=== PATIENT | female | born 1950 | race Caucasian/White ===

== ENCOUNTER 2018-12-03 19:15 | Inpatient (IN) ==
[2018-12-03] MEDS ORDERED: SODIUM CHLORIDE 0.9% 1000ML 1,000 ML IV ONE (19:25)
[2018-12-03] MEDS ORDERED: ONDANSETRON INJ 2 MG/ML 2 ML VIAL IV STA (19:25)
[2018-12-03 20:01] LABS: Hematocrit (blood only) 37.5 % (37-47); Hemoglobin 12.2 g/dL (12.0-16.0); Mean Corpuscular Hemoglobin 24.2 pg (25-34); Mean Corpuscular Hgb Conc 32.5 g/dL (32-36); Mean Corpuscular Volume 74.3 fL (80-100); Mean Platelet Volume 10.6 fL (7.4-10.4); Platelet Count 349 K/uL (130-400); RDW Coefficient of Variation 17.6 % (11.5-14.5); RDW Standard Deviation 47.9 fL (36.4-46.3); Red Blood Count 5.05 M/uL (4.2-5.4)
[2018-12-03 20:11] LABS: BUN Creatinine Ratio 25.1 (10-20); Calcium 8.6 mg/dl (8.5-10.1); Est GFR (African American) 49.2; Est GFR (Non-African American) 42.4; Potassium 4.4 mmol/L (3.5-5.1)
[2018-12-03 20:13] LABS: Albumin Globulin Ratio 0.7 (0.9-2); Bilirubin,Total 0.5 mg/dl (0.2-1); Globulin 4.5 gm/dl (2.5-4.0); Total Protein 7.5 gm/dl (6.4-8.2)
[2018-12-03 20:26] LABS: Basophils # (auto) 0.02 K/uL (0-0.2); Basophils % (auto) 0.1 %; Immature Granulocytes # (auto) 0.13 K/uL (0.00-0.02); Immature Granulocytes % (auto) 0.5 %; Lymphocytes # (auto) 0.61 K/uL (1.2-3.4); Lymphocytes % (auto) 2.4 %; Monocytes # (auto) 1.78 K/uL (0.11-0.59); Neutrophils # (auto) 22.96 K/uL (1.4-6.5)
[2018-12-03] MEDS ORDERED: IOVERSOL 100ml IV PRN (21:03)
[2018-12-03] MEDS ORDERED: PIPERACILL/TAZOBAC CONSULT ACTIVE PRN (21:13)
[2018-12-03] MEDS ORDERED: PIPERACILLIN/TAZOBACTAM 4.5 GM/120 ML BAG IV ONE (21:13)
--- NOTE | 2018-12-03 21:34 | CT Scan Report ---
CT abd pelvis IV con only CLINICAL HISTORY: 68 years-old Female presenting with lower abdominal pain, left-sided pain. TECHNIQUE: Multidetector CT of the abdomen and pelvis was performed after the administration of intra venous contrast. IV contrast: 80 mL of Optiray 320. One or more dose lowering techniques were used co nsistent with the principles of ALARA (as low as reasonably achievable), including automatic exposure control, mA or kV adjustment to individual patient size, and/or use of iterative reconstruction. COMPARISON: 10/08/2013 CT DOSE (mGy.cm): The estimated cumulative dose is 420.67 mGy.cm. FINDINGS: Skin Care Therapist topogram: Cardiomegaly. Lung bases: Normal heart size. Coronary artery and aortic valve calcification. No pericardial or pleu ral effusion. Extensive reticular and solid consolidation at the lower lobes greater on the right wit h bronchiectasis. This has progressed from the prior exam. Liver: Normal morphology. Density suggestive of hepatic steatosis. Subcentimeter well-defined hypoden se lesion possibly hepatic cyst or hamartoma. Patent hepatic vasculature. Biliary: No intrahepatic or extrahepatic biliary ductal dilatation. Gallbladder surgically absent. Pancreas: Normal. Spleen: Normal. Adrenal glands: Normal. Kidneys and ureters: Few sites of scarring in the right kidney could indicate chronic reflux nephropa thy. Few cysts noted bilaterally. No nephrolithiasis or hydronephrosis. Ureters not dilated. Bladder: Incompletely evaluated secondary to underdistention. Pelvic organs: Uterus and ovaries normal. Bowel: Fluid in the colon suggests a diarrheal state. Diverticulosis of the proximal to mid sigmoid c olon. Significant wall thickening and pericolonic inflammatory change extending from the mid transver se colon through the splenic flexure and to the level of the junction of the descending and sigmoid c olon. The extent is not characteristic of diverticulitis. The appendix is normal. Few mildly prominen t loops of small bowel with diameters less than 3 cm in no convincing evidence of obstruction. Peritoneal cavity: Trace fluid in the left paracolic gutter as well as small retroperitoneal fluid in the anterior perirenal space, left greater than right. No extraluminal or free intraperitoneal gas. No pneumatosis. No mesenteric gas. Lymph nodes: No enlarged lymph nodes in the abdomen or pelvis. Vasculature: Atherosclerosis of the normal caliber abdominal aorta. IVC patent. Abdominal wall: Normal. Musculoskeletal: Degenerative changes of the spine. IMPRESSION: 1. Extended length of an inflamed large bowel extending from the mid transverse colon to the junctio n of the descending and sigmoid colon. This region of large bowel does not appear affected by diverti culosis nor is the distribution characteristic of diverticulitis. Findings are evidence of colitis, l ikely infectious or inflammatory. An ischemic etiology is considered unlikely. 2. Diverticulosis coli of the sigmoid colon. No diverticulitis. 3. Chronic lung disease at the lung bases, right greater than left, progressed since 2013. Electronically signed by: Suresh Marquez M.D. 12/03/2018 9:32 PM
[2018-12-03] MEDS ORDERED: DOXEPIN HCL 50 MG CAPSULE PO PRN (22:33)
[2018-12-03] MEDS ORDERED: ONDANSETRON INJ 2 MG/ML 2 ML VIAL IV PRN (22:33)
[2018-12-03] MEDS ORDERED: NITROGLYCERIN SL 0.4 MG/TAB TAB SL PRN (22:33)
[2018-12-03] MEDS ORDERED: ACETAMINOPHEN 325 MG TAB PO PRN (22:33)
--- NOTE | 2018-12-03 22:34 | History and Physical Report ---
DATE OF ADMISSION: 12/03/2018 CHIEF COMPLAINT AND HISTORY OF PRESENT ILLNESS: Nausea, vomiting, abdominal pain. The patient says she was having nausea and vomited today, no blood in the vomitus and also left lower quadrant abdominal pain, very severe in nature which prompted her to come to the ER. She was also having generalized weakness and tiredness. Dictation Ends Here
--- NOTE | 2018-12-03 23:27 | History and Physical Report ---
DATE OF ADMISSION: 12/03/2018 CHIEF COMPLAINT: Nausea, vomiting, and abdominal pain. HISTORY OF PRESENT ILLNESS: This is a 68-year-old female with past medical history significant for Raynaud disease without gangrene, history of dermatomyositis, follows with rheumatology, currently on IVIG infusions q. 4 4 weeks and also on CellCept, history of interstitial lung disease, COPD, pulmonary hypertension, GERD, recently had severe esophagitis and followup recent EGD showed moderate esophagitis, currently on Prilosec b.i.d. The patient lives alone, walks without any help. She comes because of generalized weakness, nausea, vomiting and abdominal pain. No blood in the vomitus. In the ER, CAT scan is showing colitis. She was having several episodes of diarrhea, no blood in the stools or black stools. Has abdominal pain, severe in nature in left lower quadrant.. No chest pain, no shortness of breath, no cough, no fever, no chills, no headache, no dizziness, no blurred vision, hard of hearing, no earaches, no runny nose, no sore throat. Says she is swallowing okay currently. Normal bladder movements. No rash, no swelling in the legs. Currently, resting comfortably and hemodynamically stable. ALLERGIES: No known drug allergies. PAST MEDICAL HISTORY: As mentioned above. PAST SURGICAL HISTORY: Carpal tunnel surgery, colonoscopy with biopsy, EGDs, laparoscopic cholecystectomy, left shoulder arthritis surgery, ligation of oviduct, deep muscle biopsy. MEDICATIONS: Currently, the patient is on doxepin 50 mg 1-3 capsules at bedtime p.r.n., vitamin D 1000 units p.o. daily, omeprazole 20 mg p.o. b.i.d., gabapentin 300 mg p.o. t.i.d., lisinopril 5 mg p.o. daily, CellCept 1000 mg p.o. b.i.d. FAMILY HISTORY: Significant for: Father of melanoma at the age of 66. Mother has CABG in the 50s and bone cancer. SOCIAL HISTORY: , lives alone. Former smoker, quit in 2006. Apparently, smoked 3/4 packs a day for 40 years. Alcohol rarely. No drug use. REVIEW OF SYMPTOMS: As per HPI. Rest of review of systems is negative. PHYSICAL EXAMINATION: GENERAL: The patient is alert and oriented, not in acute distress. VITAL SIGNS: Temperature 36.6, pulse 105, respiratory rate 18, blood pressure 120/68, oxygen 98% room air. HEENT: No pallor, no icterus. Pupils equal, round, reactive to light. NECK: No JVD, no neck masses, no carotid bruits. CARDIOVASCULAR: S1, S2 heard, regular rate and rhythm, no murmur, no gallop. RESPIRATORY SYSTEM: Normal AP diameter. No accessory muscle use. No wheezing, no crackles. ABDOMEN: Soft, bowel sounds present. Tenderness in the left lower quadrant. No guarding. No distention. CENTRAL NERVOUS SYSTEM: Cranial nerves II-XII grossly nonfocal. EXTREMITIES: Lower extremities, history of pedal edema, no erythema seen. LABORATORY DATA: WBC 25.5, hemoglobin 12.2, hematocrit 37.5, platelets 349. Sodium 131, potassium 4.4, chloride 98, bicarbonate 22, BUN 33, creatinine 1.3, serum glucose 113, calcium 8.6, total bilirubin 0.5, AST 39, ALT 22, alkaline phosphatase 120, lipase 66. IMAGING: CT of the abdomen and pelvis shows extra length of the inflamed large bowel extending from the mid transverse colon to the junction of descending and sigmoid colon. This is a large bowel, does not appear affected by diverticulosis nor the distribution and characteristics of diverticulitis. Findings are evidence of colitis, likely infectious or inflammatory, and ischemic etiology is considered unlikely. Diverticulosis in the sigmoid colon, no diverticulitis, pleural atelectasis in the lung bases, right greater than left, progressive since 2014. ASSESSMENT AND PLAN: This is a 68-year-old female who presents with nausea, vomiting, abdominal pain, found to have colitis. 1. Colitis> Presents with nausea, vomiting, abdominal pain, also having diarrhea. We will check stool for Clostridium difficile, stool cultures. Also she has significant leukocytosis. We will check lactic acid. The CAT scan showing possible inflammatory versus infectious, ischemia unlikely, we will follow lactic acid level. Keep the patient n.p.o., IV fluids D5 normal saline about 125 mL per hour, IV morphine p.r.n. Follow the cultures. Continue the antibiotics, Cipro and Flagyl for now. Monitor in the med/surg tele.GI consult in am. 2. History of dermatomyositis, gets IVIG q. 4 weeks and CellCept daily, which we will continue. Follows with rheumatology. 3. History of interstitial lung disease, COPD, pulmonary hypertension, currently not on medications. Follow up with pulmonary. 4. Hypertension,On lisinopril, we will continue with holding parameters. 5. Gastroesophageal reflux disease and moderate to severe esophagitis, on recent EGD. Following with GI with repeat EGDs. Continue Prilosec and await GI input. 6. Deep venous thrombosis prophylaxis, sequential compression devices. DISPOSITION: Admit to med/surg tele. Level 1 full code. PT and OT prior to discharge. Social Service to help with discharge planning. MTDD
[2018-12-03] MEDS: metroNIDAZOLE 500 MG/100 ML BAG IV SCH (23:36)
[2018-12-03] MEDS: CIPROFLOXACIN 400 MG/200 ML BAG IV SCH (23:36)
[2018-12-03] MEDS: D5W AND NSS 1,000 ML IV SCH (23:37)
--- NOTE | 2018-12-03 23:52 | Emergency Department Note ---
Entered by Crystal Limon acting as a scribe for Sean Joseph DO History of Present Illness General Chief complaint: Abdominal Pain Stated complaint: Abdominal Pain Source: patient History of Present Illness Provider complaint: abdominal pain Onset (ago): day(s) (several ) Location: abdomen Pain Consistency: + constant Current Pain Intensity: 4 Relieved By: + none Exacerbated By: + none Associated symptoms: + nausea/vomiting and + other (+diarrhea) The patient is a 68 year old female who presents to the Emergency Room with complaints of constant abdominal pain for the past several days. She notes that nothing worsens or alleviates her pain. She notes that she has nausea and vomiting for the past 3 days. She has been having diarrhea since this past Sunday as well going about 7-10 times a day. Denies any blood. She mentions that her pain is a 4/10. She reports that her last bowel movement was 30 minutes ago and it was diarrhea. She notes that she gets IV IG therapy for dermatomyositis. Home Medications Home Medications Medication Instructions Recorded Confirmed Type doxepin 50 - 150 mg PO HS PRN 12/03/18 12/03/18 History gabapentin 100 mg PO TID 12/03/18 12/03/18 History lisinopril 5 mg PO DAILY 12/03/18 12/03/18 History mycophenolate mofetil 1,000 mg PO BID 12/03/18 12/03/18 History omeprazole 20 mg PO BID 12/03/18 12/03/18 History Allergies Allergy/AdvReac Type Severity Reaction Status Date / Time No Known Allergies Allergy Verified 12/03/18 20:19 Past Med/Surg History Surgical History History of hysterectomy (Acute) Social History Feels Safe at Home: Yes Smoking Status: Never smoker Review of Systems See HPI for pertinent positives & negatives. and A total of 10 systems reviewed and were otherwise negative Physical Exam Vital Signs Vital Signs - 24 hr 12/03/18 19:30 12/03/18 19:32 12/03/18 20:31 Temperature 36.6 C Temperature Source Oral Sepsis Recent Fever Within 48 Hours No Sepsis Action Taken by Nursing No Action Required Pulse Rate 118 H Pulse Rate [Bilateral Apical] 100 H Respiratory Rate 20 20 Blood Pressure 101/55 L Blood Pressure [Left Arm] 122/73 Blood Pressure Mean 70 Blood Pressure Mean [Left Arm] 89 Pulse Oximetry 95 95 100 Oxygen Delivery Method Room Air Room Air 12/03/18 21:26 12/03/18 22:02 Temperature Temperature Source Sepsis Recent Fever Within 48 Hours Sepsis Action Taken by Nursing Pulse Rate Pulse Rate [Bilateral Apical] 103 H 105 H Respiratory Rate 20 18 Blood Pressure Blood Pressure [Left Arm] 119/55 L 120/68 Blood Pressure Mean Blood Pressure Mean [Left Arm] 76 85 Pulse Oximetry 98 98 Oxygen Delivery Method Room Air Room Air GENERAL: sitting up in bed, mild distress, holding left lower quadrant EYE EXAM: normal conjunctiva, PERRL and EOM's grossly intact OROPHARYNX: no exudate, no erythema, lips, buccal mucosa, and tongue normal and mucous membranes are moist NECK: supple, no nuchal rigidity, no adenopathy, non-tender LUNGS: Clear to auscultation. Normal chest wall mechanics HEART: no murmurs, S1 normal and S2 normal ABDOMEN: tenderness to palpation of the left lower quadrant, abdomen soft, normo-active bowel sounds, no masses, no rebound or guarding. BACK: Back is symmetrical on inspection and there is no deformity, no midline tenderness, no CVA tenderness. SKIN: no rashes and no bruising UPPER EXTREMITIES: upper extremities are grossly normal. LOWER EXTREMITIES: No pitting edema. NEURO EXAM: Normal sensorium, cranial nerves II-XII grossly intact, normal speech, no gross weakness of arms, no gross weakness of legs. Course ED COURSE: Vital signs were reviewed and showed normotensive. The patients medical record was reviewed The above diagnostic studies were performed and reviewed. ED treatments and interventions as stated above. 1921: The patient was evaluated in room A2. A complete history and physical examination was performed. 2148: I discussed the patient's case with Dr. Molly Dominguez Hospitalist, he will accept the patient for further evaluation. 2152: Upon reevaluation, the patient is A2. I discussed my findings with the patient and she understands and agrees with the treatment plan. Based on the patients age, coexisting illnesses, exam and lab findings the decision to treat as an inpatient was made. The patient remained stable while under my care. The patient will be evaluated for further management. Administered Medications Ciprofloxacin (Cipro) 400 mg in 200 mls @ 100 mls/hr IV Q12 JONATAHN; Protocol Stop: 12/13/18 22:59 Last Admin: 12/03/18 23:36 Dose: 100 mls/hr Documented by: [id number] Metronidazole (Flagyl) 500 mg in 100 mls @ 100 mls/hr IV Q8H JONATHAN; Protocol Stop: 12/13/18 22:59 Last Admin: 12/03/18 23:36 Dose: 100 mls/hr Documented by: [id number] Dextrose/Sodium Chloride (D5w And Nss) 1,000 mls @ 125 mls/hr IV .Q8H JONATHAN Stop: 01/02/19 22:59 Last Admin: 12/03/18 23:37 Dose: 125 mls/hr Documented by: [id number] Discontinued Medications Sodium Chloride (Nss 1000ml) 1,000 mls @ 999 mls/hr IV .Q1H1M ONE Stop: 12/03/18 20:25 Last Infusion: 12/03/18 21:03 Dose: 0 mls/hr Documented by: [id number] Admin: 12/03/18 19:58 Dose: 999 mls/hr Documented by: [id number] Piperacillin Sod/Tazobactam Sod (Zosyn) 4.5 gm in 120 mls @ 240 mls/hr IV NOW ONE Stop: 12/03/18 21:42 Last Infusion: 12/03/18 22:03 Dose: 0 mls/hr Documented by: [id number] Admin: 12/03/18 21:21 Dose: 240 mls/hr Documented by: [id number] Ioversol (Optiray 320 100ml) 92 ml IV ONCE PRN PRN Reason: Interaction Checking Stop: 12/07/18 21:02 Last Admin: 12/03/18 21:04 Dose: 92 ml Documented by: [id number] Ondansetron HCl (Zofran) 4 mg IV NOW STA Stop: 12/03/18 19:26 Last Admin: 12/03/18 19:58 Dose: 4 mg Documented by: [id number] Medical Decision Making Differential Diagnosis Differential diagnoses includes but is not limited to gastritis, peptic ulcer disease, GERD, gallbladder disease, pancreatitis, small bowel obstruction, acute coronary syndrome, pericarditis, ischemic bowel, irritable bowel disease, irritable bowel syndrome, appendicitis, diverticulitis, malignancy, hernia, urinary tract infection, torsion, perforation, trauma, infectious. Medical Records Attestation: I reviewed the patient's medical records. Home Medications Current Medication List: was personally reviewed by me Laboratory Data Attestation: I reviewed the patient's lab results. Result diagrams: 12/03/18 19:31 12/03/18 19:31 Lab Results 12/03/18 12/03/18 12/03/18 Range/Units 19:31 19:31 21:52 WBC 25.50 H (4.8-10.8) K/uL RBC 5.05 (4.2-5.4) M/uL Hgb 12.2 (12.0-16.0) g/dL Hct 37.5 (37-47) % MCV 74.3 L (80-100) fL MCH 24.2 L (25-34) pg MCHC 32.5 (32-36) g/dL RDW Std Deviation 47.9 H (36.4-46.3) fL RDW Coeff of Myra 17.6 H (11.5-14.5) % Plt Count 349 (130-400) K/uL MPV 10.6 H (7.4-10.4) fL Immature Gran % (Auto) 0.5 % Neut % (Auto) 90.0 % Lymph % (Auto) 2.4 % [place] % (Auto) 7.0 % Eos % (Auto) 0.0 % Baso % (Auto) 0.1 % Immature Gran # (Auto) 0.13 H (0.00-0.02) K/uL Neut # (Auto) 22.96 H (1.4-6.5) K/uL Lymph # (Auto) 0.61 L (1.2-3.4) K/uL [place] # (Auto) 1.78 H (0.11-0.59) K/uL Eos # (Auto) 0.00 (0-0.5) K/uL Baso # (Auto) 0.02 (0-0.2) K/uL Sodium 131 L (136-145) mmol/L Potassium 4.4 (3.5-5.1) mmol/L Chloride 98 (98-107) mmol/L Carbon Dioxide 22 (21-32) mmol/L Anion Gap 11.0 (3-11) BUN 33 H (7-18) mg/dl Creatinine 1.30 H (0.6-1.2) mg/dl Est Cr Clr Drug Dosing 40.0 ml/min Est GFR ( Amer) 49.2 Est GFR (Non-Af Amer) 42.4 BUN/Creatinine Ratio 25.1 H (10-20) Glucose 113 H (70-99) mg/dl Lactate 2.3 H* (0.4-2.0) mmol/L Calcium 8.6 (8.5-10.1) mg/dl Total Bilirubin 0.5 (0.2-1) mg/dl AST 39 H (15-37) U/L ALT 27 (12-78) U/L Alkaline Phosphatase 120 H (45-117) U/L Total Protein 7.5 (6.4-8.2) gm/dl Albumin 3.0 L (3.4-5.0) gm/dl Globulin 4.5 H (2.5-4.0) gm/dl Albumin/Globulin Ratio 0.7 L (0.9-2) Lipase 66 L (73-393) U/L Imaging Data Radiologist's Impression: Radiology results as stated below per my review and the radiologist's interpretation: CT abd pelvis IV con only CLINICAL HISTORY: 68 years-old Female presenting with lower abdominal pain, left-sided pain. TECHNIQUE: Multidetector CT of the abdomen and pelvis was performed after the administration of intravenous contrast. IV contrast: 80 mL of Optiray 320. One or more dose lowering techniques were used consistent with the principles of ALARA (as low as reasonably achievable), including automatic exposure control, mA or kV adjustment to individual patient size, and/or use of iterative reconstruction. COMPARISON: 10/08/2013 CT DOSE (mGy.cm): The estimated cumulative dose is 420.67 mGy.cm. FINDINGS: Vessel Liner topogram: Cardiomegaly. Lung bases: Normal heart size. Coronary artery and aortic valve calcification. No pericardial or pleural effusion. Extensive reticular and solid consolidation at the lower lobes greater on the right with bronchiectasis. This has progressed from the prior exam. Liver: Normal morphology. Density suggestive of hepatic steatosis. Subcentimeter well-defined hypodense lesion possibly hepatic cyst or hamartoma. Patent hepatic vasculature. Biliary: No intrahepatic or extrahepatic biliary ductal dilatation. Gallbladder surgically absent. Pancreas: Normal. Spleen: Normal. Adrenal glands: Normal. Kidneys and ureters: Few sites of scarring in the right kidney could indicate chronic reflux nephropathy. Few cysts noted bilaterally. No nephrolithiasis or hydronephrosis. Ureters not dilated. Bladder: Incompletely evaluated secondary to underdistention. Pelvic organs: Uterus and ovaries normal. Bowel: Fluid in the colon suggests a diarrheal state. Diverticulosis of the proximal to mid sigmoid colon. Significant wall thickening and pericolonic inflammatory change extending from the mid transverse colon through the splenic flexure and to the level of the junction of the descending and sigmoid colon. The extent is not characteristic of diverticulitis. The appendix is normal. Few mildly prominent loops of small bowel with diameters less than 3 cm in no convincing evidence of obstruction. Peritoneal cavity: Trace fluid in the left paracolic gutter as well as small retroperitoneal fluid in the anterior perirenal space, left greater than right. No extraluminal or free intraperitoneal gas. No pneumatosis. No mesenteric gas. Lymph nodes: No enlarged lymph nodes in the abdomen or pelvis. Vasculature: Atherosclerosis of the normal caliber abdominal aorta. IVC patent. Abdominal wall: Normal. Musculoskeletal: Degenerative changes of the spine. IMPRESSION: 1. Extended length of an inflamed large bowel extending from the mid transverse colon to the junction of the descending and sigmoid colon. This region of large bowel does not appear affected by diverticulosis nor is the distribution characteristic of diverticulitis. Findings are evidence of colitis, likely infectious or inflammatory. An ischemic etiology is considered unlikely. 2. Diverticulosis coli of the sigmoid colon. No diverticulitis. 3. Chronic lung disease at the lung bases, right greater than left, progressed since 2013. Electronically signed by: Suresh Marquez M.D. 12/03/2018 9:32 PM Blood Pressure Blood Pressure Findings: Low blood pressure Blood Pressure Disposition: further management by hospitalist BONI Narrative Patient is a 68-year-old female who presents the ER for left lower quadrant abdominal pain associate with nausea vomiting and persistent diarrhea which is been present since this past Sunday. IV was established blood work was obtained showed leukocytosis 25,000. No significant anemia. BMP with mild hyponatremia. Creatinine was elevated at 1.3. Lactate was elevated 2.3. Lipase is unremarkable. CT abdomen pelvis shows colitis. Patient was given IV Zosyn. Pain was not out of proportion to exam. She was given IV fluids and IV morphine. Patient was updated bedside. Heart rate was trending down. She was discussed with the hospitalist and she will be admitted for further work-up and do favor that this likely infectious due to the duration. Impression & Plan Abdominal pain, Leukocytosis, Diarrhea Discharge Plan Visit Data *Final* Discharge Date/Time: 12/03/18 22:27 Chief Complaint: Abdominal Pain Stated Complaint: Abdominal Pain ED Provider: Sean Joseph Discharge Problem: Abdominal pain, Leukocytosis, Diarrhea Patient Disposition: Admitted As Inpatient Discharge Instructions Interventions: ED Discharge Assessment Last Done: 12/03/18 22:27 Discharge Problem: Abdominal pain Qualifiers: Abdominal location: left lower quadrant Qualified Code(s): R10.32 - Left lower quadrant pain Leukocytosis Qualifiers: Leukocytosis type: unspecified Qualified Code(s): D72.829 - Elevated white blood cell count, unspecified Diarrhea Qualifiers: Diarrhea type: unspecified type Qualified Code(s): R19.7 - Diarrhea, unspecified The scribe's documentation has been prepared under my direction and personally reviewed by me in its entirety. I confirm that the note above accurately r eflects all work, treatment, procedures, and medical decision making performed by me.
[2018-12-04] MEDS: MoRPHine SULFATE 4 MG/ML 1 ML CARP\\VIAL IV PRN (03:10)
[2018-12-04] MEDS ORDERED: INFLUENZA ADMINISTRATION CHARGE ONE (05:45)
[2018-12-04] MEDS ORDERED: INFLUENZA VACCINE HIGH DOSE 65+ 0.5 ML SYR IM ONE (05:45)
[2018-12-04] MEDS: metroNIDAZOLE 500 MG/100 ML BAG IV SCH ×3 (06:07→22:44)
[2018-12-04] MEDS: D5W AND NSS 1,000 ML IV SCH ×2 (06:07→14:35)
[2018-12-04 06:44] LABS: Basophils # (auto) 0.01 K/uL (0-0.2); Basophils % (auto) 0.1 %; Eosinophils # (auto) 0.02 K/uL (0-0.5); Eosinophils % (auto) 0.1 %; Immature Granulocytes # (auto) 0.05 K/uL (0.00-0.02); Immature Granulocytes % (auto) 0.3 %; Lymphocytes # (auto) 0.67 K/uL (1.2-3.4); Mean Corpuscular Hgb Conc 32.3 g/dL (32-36); Mean Corpuscular Volume 74.5 fL (80-100); Mean Platelet Volume 11.5 fL (7.4-10.4); Monocytes # (auto) 0.78 K/uL (0.11-0.59); Monocytes % (auto) 4.6 %; Neutrophils # (auto) 15.41 K/uL (1.4-6.5); Neutrophils % (auto) 90.9 %; Platelet Count 298 K/uL (130-400); RDW Coefficient of Variation 17.7 % (11.5-14.5); RDW Standard Deviation 48.1 fL (36.4-46.3); Red Blood Count 4.16 M/uL (4.2-5.4); White Blood Count 16.94 K/uL (4.8-10.8)
[2018-12-04 07:02] LABS: BUN Creatinine Ratio 27.8 (10-20); Calcium 8.1 mg/dl (8.5-10.1); Creatinine Clr Calc Pharmacy 56.9 ml/min; Est GFR (African American) 74.7; Est GFR (Non-African American) 64.4; Magnesium 2.1 mg/dl (1.8-2.4); Potassium 3.8 mmol/L (3.5-5.1)
[2018-12-04] MEDS: CIPROFLOXACIN 400 MG/200 ML BAG IV SCH ×2 (08:23→20:10)
[2018-12-04] MEDS: GABAPENTIN 100 MG CAP PO SCH ×3 (08:24→20:10)
[2018-12-04] MEDS: PANTOprazole 40 MG TAB PO SCH ×2 (08:24→20:10)
[2018-12-04] MEDS: lisinopriL 5 MG TAB PO SCH (08:25)
[2018-12-04] MEDS: MYCOPHENOLATE MOFETIL 250 MG CAP PO SCH ×2 (08:25→20:09)
--- NOTE | 2018-12-04 09:50 | Gastrointestinal Consultation ---
Date of Consultation December 04, 2018 Assessment & Plan (1) Abdominal pain: 68 year old female with history of GERD, HTN, COPD, Raynauds, dermatomyositis following w/ rheum on cellcept, IVIG admitted through the ED w/ leukocytosis, CT evidnece of colitis and report of diarrhea starting Sunday. She is awake, alert and oriented w/ mild generalized abdominal pain to palpation w/ continued non-bloody diarrhea. - Stool for c.diff - Stool culture - No GI contraindication to clear liquid diet - Agree w/ continuation of IV ABX if c.diff is negative - PO PPI BID - OP colonoscopy added to scheduled EGD Will follow. Thank you for allowing us to participate in the care of this patient. Please call with any acute changes, questions or concerns. Please see addendum below with additional recommendation from my supervising physician. Present on Admission?: Yes (2) Leukocytosis: Present on Admission?: Yes (3) Diarrhea: Present on Admission?: Yes Supervising Physician Co-Signing Physician Notes I have seen and examined the patient with VIRY Jo. 68 yo fm admitted with abdominal pain and reported diarrhea, none today. CT showing colitis left sided (non ischemic) on abx. Feeling well. PE- alert and oriented, abd - soft nt nd +bs, skin- no rashes noted Labs reviewed Imaging reviewed Outpatient colon in [address] Terrazas - already has an egd with Dr. Terrazas - will do both at the same time. GI will sign off. History of Present Illness Reason for Consultation: colitis, diarrhea Requesting Physician: Ed Attending Physician: Ji Ward MD History of Present Illness 68 year old female with GERD, HTN, COPD, Raynauds, dermatomyositis and others below who presents to the ED for evaluation of abdominal pain, diarrhea, concern for dehydration - GI asked to evaluate for colitis on CT. Pt was seen and evaluated, chart reviewed. Notes she was in her typical GI state of health until Sunday. She notes when she woke up she had generalized abdominal cramping, diarrhea w 10-20 loose,watert stools daily. Stools are brown/green. No blaack or bloody stools. Denies any UGI symptoms. No nausea, vomiting. No GERD. No fever, chills, CP, SOB. No recent ABX. No raw/undercooked foods. No well water. No sick contacts. CT: Extended length of an inflamed large bowel extending from the mid transverse colon to the junction of the descending and sigmoid colon. This region of large bowel does not appear affected by diverticulosis nor is the distribution characteristic of diverticulitis. Findings are evidence of colitis, likely infectious or inflammatory. An ischemic etiology is considered unlikely. Diverticulosis coli of the sigmoid colon. No diverticulitis. EGD 10/2018: Moderately severe erosive esophagitis. Persistent. Biopsied.- Small hiatal hernia. Normal examined duodenum. EGD 08/2018: Moderately severe erosive esophagitis.Small hiatal hernia. Normal examined duodenum. No specimens collected. EGD 06/2018: Severe erosive esophagitis. Biopsied. Normal stomach. Normal examined duodenum. Colonoscopy 2007: The perianal and digital rectal examinations were normal. Two polyps were removed, in the ascending colon and sigmoid colon, by jumbo forceps. There were a few small sigmoid diverticula. Allergies Allergy/AdvReac Type Severity Reaction Status Date / Time No Known Allergies Allergy Verified 12/03/18 20:19 Home Medications Home Medications Medication Instructions Recorded Confirmed Type doxepin 50 - 150 mg PO HS PRN 12/03/18 12/03/18 History gabapentin 100 mg PO TID 12/03/18 12/03/18 History lisinopril 5 mg PO DAILY 12/03/18 12/03/18 History mycophenolate mofetil 1,000 mg PO BID 12/03/18 12/03/18 History omeprazole 20 mg PO BID 12/03/18 12/03/18 History Patient History Surgical History History of hysterectomy (Acute) Social History Preferred Language: Kyr[place]z Communication Ability: Effective 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 Beliefs That Will Affect Care: None marital status: Single Current Living Situation: Alone Other Information That Helps Us Care for You: No Feels Safe at Home: Yes Smoking Status: Never smoker Hx Alcohol Use: No Hx Substance Use: No Review of Systems Constitutional: no fever and no chills Respiratory: no cough and no dyspnea Cardiovascular: no chest pain and no dyspnea on exertion Gastrointestinal: + abdominal pain, + cramping, + change in bowel habits, + change in stools and + diarrhea/loose stools; no nausea, no coffee ground emesis, no hematemesis, no dysphagia, no constipation, no fecal incontinence, no blood in stools and no melena Physical Exam Constitutional: well developed and well nourished; no acute distress Neck: trachea midline Respiratory: normal respiratory effort, lungs clear to auscultation Gastrointestinal (Abdomen): normal bowel sounds, soft, nontender, no hepatosplenomegaly Skin: no rashes, warm and dry Results & Data Vital Signs (Past 12 Hours) Vital Signs Temp Pulse Pulse Resp BP Pulse Ox 12/04/18 07:29 36.6 C 100 H 19 105/58 L 97 12/04/18 07:25 97 H 12/04/18 04:15 37.0 C 102 H 18 110/66 93 12/04/18 00:20 36.9 C 99 H 20 123/91 97 12/03/18 22:02 105 H 18 120/68 98 Laboratory Results 12/04/18 12/04/18 12/04/18 Range/Units 06:33 06:20 06:20 WBC 16.94 H (4.8-10.8) K/uL RBC 4.16 L (4.2-5.4) M/uL Hgb 10.0 L (12.0-16.0) g/dL Hct 31.0 L (37-47) % MCV 74.5 L (80-100) fL MCH 24.0 L (25-34) pg MCHC 32.3 (32-36) g/dL RDW Std Deviation 48.1 H (36.4-46.3) fL RDW Coeff of Myra 17.7 H (11.5-14.5) % Plt Count 298 (130-400) K/uL MPV 11.5 H (7.4-10.4) fL Immature Gran % (Auto) 0.3 % Neut % (Auto) 90.9 % Lymph % (Auto) 4.0 % Otero % (Auto) 4.6 % Eos % (Auto) 0.1 % Baso % (Auto) 0.1 % Immature Gran # (Auto) 0.05 H (0.00-0.02) K/uL Neut # (Auto) 15.41 H (1.4-6.5) K/uL Lymph # (Auto) 0.67 L (1.2-3.4) K/uL Otero # (Auto) 0.78 H (0.11-0.59) K/uL Eos # (Auto) 0.02 (0-0.5) K/uL Baso # (Auto) 0.01 (0-0.2) K/uL Sodium 134 L (136-145) mmol/L Potassium 3.8 (3.5-5.1) mmol/L Chloride 105 (98-107) mmol/L Carbon Dioxide 21 (21-32) mmol/L Anion Gap 8.0 (3-11) BUN 26 H (7-18) mg/dl Creatinine 0.92 D (0.6-1.2) mg/dl Est Cr Clr Drug Dosing 56.9 ml/min Est GFR ( Amer) 74.7 Est GFR (Non-Af Amer) 64.4 BUN/Creatinine Ratio 27.8 H (10-20) Glucose 103 H (70-99) mg/dl Lactate 1.0 (0.4-2.0) mmol/L Calcium 8.1 L (8.5-10.1) mg/dl Magnesium 2.1 (1.8-2.4) mg/dl Total Bilirubin (0.2-1) mg/dl AST (15-37) U/L ALT (12-78) U/L Alkaline Phosphatase (45-117) U/L Total Protein (6.4-8.2) gm/dl Albumin (3.4-5.0) gm/dl Globulin (2.5-4.0) gm/dl Albumin/Globulin Ratio (0.9-2) Lipase (73-393) U/L 12/03/18 12/03/18 12/03/18 Range/Units 21:52 19:31 19:31 WBC 25.50 H (4.8-10.8) K/uL RBC 5.05 (4.2-5.4) M/uL Hgb 12.2 (12.0-16.0) g/dL Hct 37.5 (37-47) % MCV 74.3 L (80-100) fL MCH 24.2 L (25-34) pg MCHC 32.5 (32-36) g/dL RDW Std Deviation 47.9 H (36.4-46.3) fL RDW Coeff of Myra 17.6 H (11.5-14.5) % Plt Count 349 (130-400) K/uL MPV 10.6 H (7.4-10.4) fL Immature Gran % (Auto) 0.5 % Neut % (Auto) 90.0 % Lymph % (Auto) 2.4 % Otero % (Auto) 7.0 % Eos % (Auto) 0.0 % Baso % (Auto) 0.1 % Immature Gran # (Auto) 0.13 H (0.00-0.02) K/uL Neut # (Auto) 22.96 H (1.4-6.5) K/uL Lymph # (Auto) 0.61 L (1.2-3.4) K/uL Otero # (Auto) 1.78 H (0.11-0.59) K/uL Eos # (Auto) 0.00 (0-0.5) K/uL Baso # (Auto) 0.02 (0-0.2) K/uL Sodium 131 L (136-145) mmol/L Potassium 4.4 (3.5-5.1) mmol/L Chloride 98 (98-107) mmol/L Carbon Dioxide 22 (21-32) mmol/L Anion Gap 11.0 (3-11) BUN 33 H (7-18) mg/dl Creatinine 1.30 H (0.6-1.2) mg/dl Est Cr Clr Drug Dosing 40.0 ml/min Est GFR ( Amer) 49.2 Est GFR (Non-Af Amer) 42.4 BUN/Creatinine Ratio 25.1 H (10-20) Glucose 113 H (70-99) mg/dl Lactate 2.3 H* (0.4-2.0) mmol/L Calcium 8.6 (8.5-10.1) mg/dl Magnesium (1.8-2.4) mg/dl Total Bilirubin 0.5 (0.2-1) mg/dl AST 39 H (15-37) U/L ALT 27 (12-78) U/L Alkaline Phosphatase 120 H (45-117) U/L Total Protein 7.5 (6.4-8.2) gm/dl Albumin 3.0 L (3.4-5.0) gm/dl Globulin 4.5 H (2.5-4.0) gm/dl Albumin/Globulin Ratio 0.7 L (0.9-2) Lipase 66 L (73-393) U/L (1) Diarrhea Diarrhea type: unspecified type Qualified Code(s): R19.7 - Diarrhea, unspecified (2) Leukocytosis Leukocytosis type: unspecified Qualified Code(s): D72.829 - Elevated white blood cell count, unspecified (3) Abdominal pain Abdominal location: left lower quadrant Qualified Code(s): R10.32 - Left lower quadrant pain
--- NOTE | 2018-12-04 14:08 | Hospitalist Progress Note ---
Date of Service December 04, 2018 Assessment & Plan (1) Abdominal pain: (2) Colitis: Present on admission with abdominal pain associated with multiple episodes of diarrhea, nausea and vomiting CT abd showed extended length of an inflamed large bowel extending from the mid transverse colon to the junction of the descending and sigmoid colon. No diverticulitis WBC elevated on admission 25K Received IV Zosyn on admission Was starting on IV flagyl and Cipro WBC trending down to 16K Will check for Cdiff Diarrhea improves, doubt for Cdiff GI on board Continue PPI Plan for outpatient colonoscopy in 8 weeks Will start on clear liquid diet and advanced as tolerated Will decrease IVF to 100cc Continue monitor closely Acute Kidney Injury Mostly related to dehydration due to diarrhea and vomiting Creatinine 1.3 on admission Received IVF Creatinine normalized Continue monitor BMP History of dermatomyositis Received IVIG q4 weeks and CellCept daily, Outpatient follows with rheumatology. History of interstitial lung disease COPD Stable Hypertension BP stable Continue lisinopril Gastroesophageal reflux disease Last EGD showed moderate to severe esophagitis, Continue PPI BID Plan to have outpatient EGD done in 8 weeks DVT px on SCDs Code Status FULL CODE Subjective Pt was seen and examined Lying in bed with no distress Pt said that she feels much better She said that she only had 1 BM today She has not had any nausea and vomiting She said that her abdominal pain improves Denies any chest pain, palpitation, dizziness and SOB Physical Exam Physical Exam: General- No acute distress Head- atraumatic Eyes- PERRL, EOMI, ENT- oropharynx clear Neck- supple, no JVD Lungs- clear to auscultation Heart- regular rhythm; no murmur Abdomen- +mild tender, Hypo active bowel sound Extremities- no calf tenderness Neuro- alert, oriented x 3; PERRL, EOMI; no facial palsy; no dysarthria Skin- warm & dry Results & Data Vital Signs (Past 12 Hours) Vital Signs Temp Pulse Pulse Resp BP Pulse Ox 12/04/18 11:35 36.9 C 92 H 18 130/67 97 12/04/18 07:29 36.6 C 100 H 19 105/58 L 97 12/04/18 07:25 97 H 12/04/18 04:15 37.0 C 102 H 18 110/66 93 (1) Abdominal pain Abdominal location: left lower quadrant Qualified Code(s): R10.32 - Left lower quadrant pain
[2018-12-05] MEDS: D5W AND NSS 1,000 ML IV SCH ×3 (02:22→17:27)
[2018-12-05 05:24] LABS: Hematocrit (blood only) 30.5 % (37-47); Hemoglobin 9.3 g/dL (12.0-16.0); Mean Corpuscular Hemoglobin 23.3 pg (25-34); Mean Corpuscular Hgb Conc 30.5 g/dL (32-36); Mean Corpuscular Volume 76.4 fL (80-100); Platelet Count 195 K/uL (130-400); RDW Coefficient of Variation 17.7 % (11.5-14.5); RDW Standard Deviation 49.8 fL (36.4-46.3); Red Blood Count 3.99 M/uL (4.2-5.4); White Blood Count 8.85 K/uL (4.8-10.8)
[2018-12-05 05:53] LABS: BUN Creatinine Ratio 17.8 (10-20); Calcium 7.7 mg/dl (8.5-10.1); Creatinine Clr Calc Pharmacy 71.7 ml/min; Est GFR (African American) 98.8; Est GFR (Non-African American) 85.2; Potassium 3.3 mmol/L (3.5-5.1)
[2018-12-05] MEDS: metroNIDAZOLE 500 MG/100 ML BAG IV SCH ×3 (06:04→23:20)
--- NOTE | 2018-12-05 08:14 | Gastroenterology Progress Note ---
Date of Service December 05, 2018 Assessment & Plan (1) Colitis: 68 year old female with history of GERD, HTN, COPD, Raynauds, dermatomyositis following w/ rheum on cellcept, IVIG admitted through the ED w/ leukocytosis, CT evidence of colitis and report of diarrhea starting Sunday. She is awake, alert and oriented w/ mild generalized abdominal pain to palpation. Her leukocytosis is improving, she has remained afebrile and notes improvement of the frequency of her stools - for c.diff negative - Stool culture pending - No GI contraindication to advancing diet - Agree w/ continuation ABX given negative c.diff - Send home w/ cipro/flagyl - PO PPI BID - OP colonoscopy added to scheduled EGD GI to sign off. Thank you for allowing us to participate in the care of this patient. Please call with any acute changes, questions or concerns. Please see addendum below with additional recommendation from my supervising physician. Present on Admission?: Yes Supervising Physician Co-Signing Physician Notes I have seen and examined the patient and discussed the management with VIRY Gonzalez. Further plan of care as per her assessment and plan. Subjective Pt was seen and evaluated, chart reviewed. No acute events noted overnight Notes she continues to improve Suggests moving bowels 3-4 times in the past 24 hours Brown stools No black or bloody stools c.diff negative culture pending Review of Systems Constitutional: no fever and no chills Respiratory: no cough and no dyspnea Cardiovascular: no chest pain and no dyspnea on exertion Gastrointestinal: + diarrhea/loose stools; no coffee ground emesis, no hematemesis, no blood in stools and no melena Physical Exam Constitutional: WD/WN, vitals as above Respiratory: normal respiratory effort, lungs clear to auscultation Cardiovascular: Rate/Rhythm: regular rate and regular rhythm Gastrointestinal (Abdomen): Percussion/Palpation: + abdomen tender (lower abd L>R) and abdomen soft; no guarding and abdomen not rigid Skin: no rashes, warm and dry Results & Data Vital Signs (Past 12 Hours) Vital Signs Temp Pulse Pulse Resp BP BP Pulse Ox 12/05/18 07:38 99 H 12/05/18 07:26 36.3 C L 86 18 106/64 96 12/05/18 03:00 36.8 C 97 H 18 129/70 96 10/10/19 01:06 98 H 12/04/18 23:30 118/72 12/04/18 23:00 36.9 C 99 H 20 67/50 L 96 Laboratory Results 12/05/18 12/05/18 12/04/18 Range/Units 05:13 05:13 20:10 WBC 8.85 (4.8-10.8) K/uL RBC 3.99 L (4.2-5.4) M/uL Hgb 9.3 L (12.0-16.0) g/dL Hct 30.5 L (37-47) % MCV 76.4 L (80-100) fL MCH 23.3 L (25-34) pg MCHC 30.5 L (32-36) g/dL RDW Std Deviation 49.8 H (36.4-46.3) fL RDW Coeff of Myra 17.7 H (11.5-14.5) % Plt Count 195 (130-400) K/uL Sodium 137 (136-145) mmol/L Potassium 3.3 L (3.5-5.1) mmol/L Chloride 107 (98-107) mmol/L Carbon Dioxide 24 (21-32) mmol/L Anion Gap 6.0 (3-11) BUN 13 (7-18) mg/dl Creatinine 0.73 (0.6-1.2) mg/dl Est Cr Clr Drug Dosing 71.7 ml/min Est GFR ( Amer) 98.8 Est GFR (Non-Af Amer) 85.2 BUN/Creatinine Ratio 17.8 (10-20) Glucose 90 (70-99) mg/dl Calcium 7.7 L (8.5-10.1) mg/dl Stl C. diff Tox B Gene Negative Cdiff Gene (Neg)
[2018-12-05] MEDS ORDERED: POTASSIUM CHLORIDE 10 MEQ TABCR PO STA (08:24)
[2018-12-05] MEDS: lisinopriL 5 MG TAB PO SCH (08:52)
[2018-12-05] MEDS: GABAPENTIN 100 MG CAP PO SCH ×3 (08:52→20:49)
[2018-12-05] MEDS: MYCOPHENOLATE MOFETIL 250 MG CAP PO SCH ×2 (08:52→20:49)
[2018-12-05] MEDS: PANTOprazole 40 MG TAB PO SCH ×2 (08:53→20:49)
[2018-12-05] MEDS: CIPROFLOXACIN 400 MG/200 ML BAG IV SCH ×2 (08:53→20:49)
--- NOTE | 2018-12-05 11:35 | XRay Report ---
XR KUB/Abdomen 1 view CLINICAL HISTORY: LLQ discomfort COMPARISON STUDY: No previous studies for comparison. FINDINGS: There are surgical clips within the right upper quadrant consistent with a prior cholecyste ctomy. There is a borderline dilated right mid abdominal small bowel measuring 33 mm. There is no con ventional radiographic evidence of a high-grade bowel obstruction. There are no calcifications suspic ious for renal calculi. There are multiple nonspecific pelvic basin calcifications likely representin g phleboliths. There is a very faint nonspecific 2 cm radiopaque density within the right mid abdomen IMPRESSION: 1. Borderline dilated right mid abdominal small bowel loop, possibly representing a focal ileus 2. No conventional radiographic evidence of a high-grade bowel obstruction Electronically signed by: Markus Lora M.D. 12/05/2018 11:34 AM
--- NOTE | 2018-12-05 15:35 | Hospitalist Progress Note ---
Date of Service December 05, 2018 Assessment & Plan (1) Abdominal pain: (2) Colitis: Present on admission with abdominal pain associated with multiple episodes of diarrhea, nausea and vomiting CT abd showed extended length of an inflamed large bowel extending from the mid transverse colon to the junction of the descending and sigmoid colon. No diverticulitis WBC elevated on admission 25K Received IV Zosyn on admission WBC trending down to normal Stool for Cdiff negative Continue IV flagyl and Cipro GI on board Continue PPI Plan for outpatient colonoscopy in 8 weeks Diet advanced to full liquid Continue monitor closely Acute Kidney Injury Mostly related to dehydration due to diarrhea and vomiting Creatinine 1.3 on admission Received IVF Creatinine normalized Continue monitor BMP History of dermatomyositis Received IVIG q4 weeks and CellCept daily, Outpatient follows with rheumatology. History of interstitial lung disease COPD Stable Hypertension BP stable Continue lisinopril Gastroesophageal reflux disease Last EGD showed moderate to severe esophagitis, Continue PPI BID Plan to have outpatient EGD done in 8 weeks DVT px on SCDs Code Status FULL CODE Subjective Pt was seen and examined Lying in bed with no distress with daughter at bedside Pt said that she feels a little better She said that her pain improves She said that she already had 4 bowel movements today She tolerated full liquid diet Denies any chest pain, palpitation, dizziness and SOB Physical Exam Physical Exam: General- No acute distress Head- atraumatic Eyes- PERRL, EOMI, ENT- oropharynx clear Neck- supple, no JVD Lungs- clear to auscultation Heart- regular rhythm; no murmur Abdomen- +mild tender, Hypo active bowel sound Extremities- no calf tenderness Neuro- alert, oriented x 3; PERRL, EOMI; no facial palsy; no dysarthria Skin- warm & dry Results & Data Vital Signs (Past 12 Hours) Vital Signs Temp Pulse Pulse Resp BP BP Pulse Ox 12/05/18 14:59 36.4 C L 86 16 110/70 98 12/05/18 11:00 36.8 C 63 18 125/74 97 12/05/18 07:38 99 H 12/05/18 07:26 36.3 C L 86 18 106/64 96 (1) Abdominal pain Abdominal location: left lower quadrant Qualified Code(s): R10.32 - Left lower quadrant pain
[2018-12-06] MEDS: D5W AND NSS 1,000 ML IV SCH (00:44)
[2018-12-06] MEDS: metroNIDAZOLE 500 MG/100 ML BAG IV SCH (06:03)
[2018-12-06 07:00] LABS: BUN Creatinine Ratio 10.3 (10-20); Calcium 7.9 mg/dl (8.5-10.1); Creatinine Clr Calc Pharmacy 78.2 ml/min; Est GFR (African American) 104.9; Est GFR (Non-African American) 90.5; Potassium 3.2 mmol/L (3.5-5.1)
[2018-12-06] MEDS: PANTOprazole 40 MG TAB PO SCH (08:01)
[2018-12-06] MEDS: GABAPENTIN 100 MG CAP PO SCH ×2 (08:01→13:20)
[2018-12-06] MEDS: lisinopriL 5 MG TAB PO SCH (08:01)
[2018-12-06] MEDS: MYCOPHENOLATE MOFETIL 250 MG CAP PO SCH (08:02)
[2018-12-06] MEDS: CIPROFLOXACIN 400 MG/200 ML BAG IV SCH (08:03)
[2018-12-06] MEDS: MoRPHine SULFATE 4 MG/ML 1 ML CARP\\VIAL IV PRN (08:04)
[2018-12-06 08:14] LABS: Hematocrit (blood only) 28.7 % (37-47); Hemoglobin 8.9 g/dL (12.0-16.0); Mean Corpuscular Hemoglobin 23.5 pg (25-34); Mean Corpuscular Volume 75.9 fL (80-100); Platelet Count 196 K/uL (130-400); RDW Coefficient of Variation 17.7 % (11.5-14.5); RDW Standard Deviation 49.4 fL (36.4-46.3); Red Blood Count 3.78 M/uL (4.2-5.4); White Blood Count 5.16 K/uL (4.8-10.8)
[2018-12-06] MEDS ORDERED: POTASSIUM CHLORIDE 20 MEQ TABCR PO STA (08:16)
--- NOTE | 2018-12-06 08:27 | Gastroenterology Progress Note ---
Date of Service December 06, 2018 Assessment & Plan (1) Colitis: 68 year old female with history of GERD, HTN, COPD, Raynauds, dermatomyositis following w/ rheum on cellcept, IVIG admitted through the ED w/ leukocytosis, CT evidence of colitis and report of diarrhea starting Sunday. She is awake, alert and oriented w/ mild generalized abdominal pain to palpation. Her leukocytosis is improving, she has remained afebrile and notes improvement of the frequency of her stools - c.diff negative - Stool culture negative but not finalized - No GI contraindication to advancing diet - Agree w/ continuation ABX given negative c.diff - Send home w/ cipro/flagyl - PO PPI BID - OP colonoscopy added to scheduled EGD GI to sign off. Thank you for allowing us to participate in the care of this patient. Please call with any acute changes, questions or concerns. Please see addendum below with additional recommendation from my supervising physician. Supervising Physician Co-Signing Physician Notes I have seen and examined the patient and discussed the management with VIRY Jo. 68 yo fm with a history of diarrhea, imaging with colitis. KUB showign ilues. passing gas, diarrhea slowing. PE- alert and oriented, HEENT - no scleral icterus, abd - soft nt nd +bs Labs reviewed Outpatient colon in 8 weeks. Complete abx course for presumed infectious colitis. She will have an egd in follow-up as well given she had been having them done with Dr. Terrazas in the past - both scopes will be done at that time. GI will sign off. Subjective Pt was seen and evaluated, chart reviewed. Continues to improve. In total, 4 stools yesterday Has been awake since 0200 and notes 2 BM today Still liquid No black/bloody stools Notes her pain is greatly improved Less sever, less often when occurs No fever, chills, CP, SOB Review of Systems Constitutional: no fever and no chills Respiratory: no cough and no dyspnea Cardiovascular: no chest pain and no radiating jaw, neck or arm pain Gastrointestinal: + abdominal pain and + diarrhea/loose stools; no blood in stools and no melena Physical Exam Constitutional: well developed and well nourished; no acute distress Neck: trachea midline Respiratory: normal respiratory effort Cardiovascular: Rate/Rhythm: regular rate and regular rhythm Gastrointestinal (Abdomen): Inspection/Auscultation: normal bowel sounds Percussion/Palpation: + abdomen tender (lower abdominal) and abdomen soft; no guarding and abdomen not rigid Skin: no rashes, warm and dry Results & Data Vital Signs (Past 12 Hours) Vital Signs Temp Pulse Pulse Resp BP BP Pulse Ox 12/06/18 07:18 37.0 C 103 H 20 120/76 91 12/06/18 04:00 37.1 C 80 18 134/69 96 12/05/18 23:35 81 12/05/18 23:00 37.2 C 88 20 134/75 97
[2018-12-06] MEDS ORDERED: metroNIDAZOLE 500 MG TAB PO SCH (14:30)
--- NOTE | 2018-12-06 15:03 | Hospitalist Progress Note ---
Date of Service December 06, 2018 Assessment & Plan (1) Abdominal pain: (2) Colitis: Present on admission with abdominal pain associated with multiple episodes of diarrhea, nausea and vomiting CT abd showed extended length of an inflamed large bowel extending from the mid transverse colon to the junction of the descending and sigmoid colon. No diverticulitis WBC elevated on admission 25K Received IV Zosyn on admission WBC trending down to normal Stool for Cdiff negative On IV flagyl and Cipro, will change to oral flagyl and cipro GI on board Continue PPI Plan for outpatient colonoscopy in 8 weeks Diet advanced to full liquid Continue monitor closely Acute Kidney Injury Mostly related to dehydration due to diarrhea and vomiting Creatinine 1.3 on admission Received IVF Creatinine normalized Continue monitor BMP History of dermatomyositis Received IVIG q4 weeks and CellCept daily, Outpatient follows with rheumatology. History of interstitial lung disease COPD Stable Hypertension BP stable Continue lisinopril Gastroesophageal reflux disease Last EGD showed moderate to severe esophagitis, Continue PPI BID Plan to have outpatient EGD done in 8 weeks DVT px on SCDs Code Status FULL CODE Disposition Will discharge home today Subjective Pt was seen and examined Lying in bed with no distress Pt said that she feels much better today She said that she only has 1 bowel movement today so far She tolerated her diet Denies any chest pain, palpitation, dizziness and SOB Physical Exam Physical Exam: General- No acute distress Head- atraumatic Eyes- PERRL, EOMI, ENT- oropharynx clear Neck- supple, no JVD Lungs- clear to auscultation Heart- regular rhythm; no murmur Abdomen- Non tender, +BS Extremities- no calf tenderness Neuro- alert, oriented x 3; PERRL, EOMI; no facial palsy; no dysarthria Skin- warm & dry Results & Data Vital Signs (Past 12 Hours) Vital Signs Temp Pulse Pulse Resp BP BP Pulse Ox 12/06/18 11:34 36.4 C L 83 18 104/68 94 12/06/18 08:00 83 12/06/18 07:18 37.0 C 103 H 20 120/76 91 12/06/18 04:00 37.1 C 80 18 134/69 96 (1) Abdominal pain Abdominal location: left lower quadrant Qualified Code(s): R10.32 - Left lower quadrant pain
[2018-12-06] MEDS ORDERED: CIPROFLOXACIN 500 MG TAB PO SCH (21:00)
--- NOTE | 2018-12-07 23:45 | Discharge Summary ---
Date of Service December 06, 2018 Admission HPI Per Admitting Provider CHIEF COMPLAINT: Nausea, vomiting, and abdominal pain. HISTORY OF PRESENT ILLNESS: This is a 68-year-old female with past medical history significant for Raynaud disease without gangrene, history of dermatomyositis, follows with rheumatology, currently on IVIG infusions q. 4 4 weeks and also on CellCept, history of interstitial lung disease, COPD, pulmonary hypertension, GERD, recently had severe esophagitis and followup recent EGD showed moderate esophagitis, currently on Prilosec b.i.d. The patient lives alone, walks without any help. She comes because of generalized weakness, nausea, vomiting and abdominal pain. No blood in the vomitus. In the ER, CAT scan is showing colitis. She was having several episodes of diarrhea, no blood in the stools or black stools. Has abdominal pain, severe in nature in left lower quadrant.. No chest pain, no shortness of breath, no cough, no fever, no chills, no headache, no dizziness, no blurred vision, hard of hearing, no earaches, no runny nose, no sore throat. Says she is swallowing okay currently. Normal bladder movements. No rash, no swelling in the legs. Currently, resting comfortably and hemodynamically stable. Admission Exam Per Admitting Provider GENERAL: The patient is alert and oriented, not in acute distress. VITAL SIGNS: Temperature 36.6, pulse 105, respiratory rate 18, blood pressure 120/68, oxygen 98% room air. HEENT: No pallor, no icterus. Pupils equal, round, reactive to light. NECK: No JVD, no neck masses, no carotid bruits. CARDIOVASCULAR: S1, S2 heard, regular rate and rhythm, no murmur, no gallop. RESPIRATORY SYSTEM: Normal AP diameter. No accessory muscle use. No wheezing, no crackles. ABDOMEN: Soft, bowel sounds present. Tenderness in the left lower quadrant. No guarding. No distention. CENTRAL NERVOUS SYSTEM: Cranial nerves II-XII grossly nonfocal. EXTREMITIES: Lower extremities, history of pedal edema, no erythema seen. Principal Diagnosis Abdominal pain Colitis Acute Kidney Injury Hypertension History of dermatomyositis History of interstitial lung disease Discharge Exam General- No acute distress Head- atraumatic Eyes- PERRL, EOMI, ENT- oropharynx clear Neck- supple, no JVD Lungs- clear to auscultation Heart- regular rhythm; no murmur Abdomen- Non tender, +BS Extremities- no calf tenderness Neuro- alert, oriented x 3; PERRL, EOMI; no facial palsy; no dysarthria Skin- warm & dry Discharge Data Allergies Allergy/AdvReac Type Severity Reaction Status Date / Time No Known Allergies Allergy Verified 12/03/18 20:19 Consultations 12/03/18 21:52 ED Decision to Admit Stat 12/03/18 22:33 Consult Case Management - Discharge Planning Routine 12/04/18 08:00 Consult Gastroenterology Routine Ordered Studies 12/03/18 19:25 CT abd pelvis IV con only Stat XR KUB/Abdomen 1 view CLINICAL HISTORY: LLQ discomfort COMPARISON STUDY: No previous studies for comparison. FINDINGS: There are surgical clips within the right upper quadrant consistent with a prior cholecystectomy. There is a borderline dilated right mid abdominal small bowel measuring 33 mm. There is no conventional radiographic evidence of a high-grade bowel obstruction. There are no calcifications suspicious for renal calculi. There are multiple nonspecific pelvic basin calcifications likely representing phleboliths. There is a very faint nonspecific 2 cm radiopaque density within the right mid abdomen IMPRESSION: 1. Borderline dilated right mid abdominal small bowel loop, possibly representing a focal ileus 2. No conventional radiographic evidence of a high-grade bowel obstruction Electronically signed by: Markus Lora M.D. 12/05/2018 11:34 AM Dictated: 12/05/18 1131 Transcribed: 12/05/[address] abd pelvis IV con only CLINICAL HISTORY: 68 years-old Female presenting with lower abdominal pain, left-sided pain. TECHNIQUE: Multidetector CT of the abdomen and pelvis was performed after the administration of intravenous contrast. IV contrast: 80 mL of Optiray 320. One or more dose lowering techniques were used consistent with the principles of ALARA (as low as reasonably achievable), including automatic exposure control, mA or kV adjustment to individual patient size, and/or use of iterative reconstruction. COMPARISON: 10/08/2013 CT DOSE (mGy.cm): The estimated cumulative dose is 420.67 mGy.cm. FINDINGS: Mounter Flutes And Piccolos topogram: Cardiomegaly. Lung bases: Normal heart size. Coronary artery and aortic valve calcification. No pericardial or pleural effusion. Extensive reticular and solid consolidation at the lower lobes greater on the right with bronchiectasis. This has progressed from the prior exam. Liver: Normal morphology. Density suggestive of hepatic steatosis. Subcentimeter well-defined hypodense lesion possibly hepatic cyst or hamartoma. Patent hepatic vasculature. Biliary: No intrahepatic or extrahepatic biliary ductal dilatation. Gallbladder surgically absent. Pancreas: Normal. Spleen: Normal. Adrenal glands: Normal. Kidneys and ureters: Few sites of scarring in the right kidney could indicate chronic reflux nephropathy. Few cysts noted bilaterally. No nephrolithiasis or hydronephrosis. Ureters not dilated. Bladder: Incompletely evaluated secondary to underdistention. Pelvic organs: Uterus and ovaries normal. Bowel: Fluid in the colon suggests a diarrheal state. Diverticulosis of the proximal to mid sigmoid colon. Significant wall thickening and pericolonic inflammatory change extending from the mid transverse colon through the splenic flexure and to the level of the junction of the descending and sigmoid colon. The extent is not characteristic of diverticulitis. The appendix is normal. Few mildly prominent loops of small bowel with diameters less than 3 cm in no convincing evidence of obstruction. Peritoneal cavity: Trace fluid in the left paracolic gutter as well as small retroperitoneal fluid in the anterior perirenal space, left greater than right. No extraluminal or free intraperitoneal gas. No pneumatosis. No mesenteric gas. Lymph nodes: No enlarged lymph nodes in the abdomen or pelvis. Vasculature: Atherosclerosis of the normal caliber abdominal aorta. IVC patent. Abdominal wall: Normal. Musculoskeletal: Degenerative changes of the spine. IMPRESSION: 1. Extended length of an inflamed large bowel extending from the mid transverse colon to the junction of the descending and sigmoid colon. This region of large bowel does not appear affected by diverticulosis nor is the distribution characteristic of diverticulitis. Findings are evidence of colitis, likely infectious or inflammatory. An ischemic etiology is considered unlikely. 2. Diverticulosis coli of the sigmoid colon. No diverticulitis. 3. Chronic lung disease at the lung bases, right greater than left, progressed since 2014. Electronically signed by: Suresh Marquez M.D. 12/03/2018 9:32 PM Dictated: 12/03/182123 Transcribed: 12/03/182125 Hospital Course (1) Abdominal pain: (2) Colitis: Present on admission with abdominal pain associated with multiple episodes of diarrhea, nausea and vomiting CT abd showed extended length of an inflamed large bowel extending from the mid transverse colon to the junction of the descending and sigmoid colon. No diverticulitis WBC elevated on admission 25K Received IV Zosyn on admission WBC trending down to normal Stool for Cdiff negative On IV flagyl and Cipro, will change to oral flagyl and cipro GI on board Continue PPI Plan for outpatient colonoscopy in 8 weeks Diet advanced to full liquid Continue monitor closely Acute Kidney Injury Mostly related to dehydration due to diarrhea and vomiting Creatinine 1.3 on admission Received IVF Creatinine normalized Continue monitor BMP History of dermatomyositis Received IVIG q4 weeks and CellCept daily, Outpatient follows with rheumatology. History of interstitial lung disease COPD Stable Hypertension BP stable Continue lisinopril Gastroesophageal reflux disease Last EGD showed moderate to severe esophagitis, Continue PPI BID Plan to have outpatient EGD done in 8 weeks DVT px on SCDs Code Status FULL CODE Disposition Will discharge home today Total Time Total Time Spent Total Time Spent (In Minutes): 35 minutes Total Time Includes: Examination of the Patient, Discharge Planning, Medication Reconciliation, Communication With Other Providers and Other Discharge Plan Discharge Items Patient Disposition: Home - Home Health Services Reason For Visit: N/V, ABDOMINAL PAIN Discharge Diagnosis: Abdominal pain Colitis Acute Kidney Injury Hypertension Activity: Resume your previous activity Activity Comment: Tolerated Non-emergency contact: Primary Care Provider and Filler In Call non-emergency contact if: you have any medication questions Follow-up/Referrals: Ryan Hatfield MD [Primary Care Provider] - Diet: Heart Healthy Addtl Attending Provider Instructions: Follow up with your primary care provider Dr. Vazquez on 12/10 @ 1:25 PM Follow up with gastroenterology for EGD and Colonoscopy in 8 weeks (Office will call you for the appointment) Check BMP in 1 week to monitor electrolytes Continue cipro and flagyl course Pending Studies at Discharge: No Stand-Alone Forms: Call Back Authorization, [facility] Medications and DC Order Prescriptions: New ciprofloxacin HCl 500 mg Tablet 500 mg PO BID 7 Days Qty: 14 RF: 0 metronidazole 500 mg Tablet 500 mg PO TID 7 Days Qty: 21 RF: 0 Continued doxepin 50 mg capsule 50 - 150 mg PO HS PRN (Reason: Sleep) RF: 0 mycophenolate mofetil 500 mg tablet 1,000 mg PO BID RF: 0 omeprazole 20 mg capsule,delayed release(DR/EC) 20 mg PO BID RF: 0 lisinopril 5 mg tablet 5 mg PO DAILY RF: 0 gabapentin 100 mg capsule 100 mg PO TID RF: 0 Discharge Orders: Discharge Order (Routine); Ordered 12/06/18 Ordered By: Ji Ward Admission Data Admit Date/Time: 12/03/18 22:12 Attending Provider: Ji Ward Admit Provider: Rakesh Krishnamurthy Primary Care Provider: Ryan Hatfield Other Providers: Rakesh Krishnamurthy ; Rodolfo Gallegos ; Galina Gilbert ; Madeline Stark ; Manuel Negron ; Johnnie Mcadams ; Sam Morales ; Jeanette Pugh ; Armand Portillo ; Domingo Chapin ; Kim Lua ; Mary Terrazas ; Sena Crawford ; Becky Vivas ; Mickey Donahue Other Interventions: Discharge Summary Assessment (RN) Last Done: 12/06/18 15:11 DC Date/Time DO NOT enter until pt leaves facility: 12/06/18 16:02
== END 2018-12-06 16:02 | disposition home health service (06) | DRG 392 ==
LOC: ED 19:15 → 2N 22:12

== ENCOUNTER 2020-08-26 20:53 | Inpatient (IN) ==
[2020-08-26] MEDS ORDERED: SODIUM CHLORIDE 0.9% 1000ML 1,000 ML IV SCH (21:30)
--- NOTE | 2020-08-26 21:38 | Emergency Department Note ---
History of Present Illness General Chief complaint: Confusion Stated complaint: SLURRED SPEECH , DISORIENTATION Time Seen by Provider: 08/26/20 21:08 Source: patient Mode of arrival: ambulatory Limitations: no limitations History of Present Illness Provider complaint: Speech difficulty, confusion The patient is a 70-year-old female who presents to the ED with a daughter. The last known well would be 6 PM yesterday. The daughter states that she talked her on the phone at that time and she seemed to be okay. Tonight when she called her, she did not answer the phone. When she went to the house to check on her, the daughter states that the patient told her that her phone would not work. The patient is right-handed. The patient may have had difficulty answering the phone as her right hand and arm function seems to be deficient. This is abnormal for her. When the daughter went over, she states that it seemed to take longer for the patient to answer questions and she seemed a little confused at times. She felt like she was a little sweaty. No additional complaints this time. The patient does receive IVIG every month. She received it yesterday and the day before. No additional complaints. No fevers. No chest pains or shortness of breath. No headaches. Home Medications Medication Instructions Recorded Confirmed Type doxepin 50 - 150 mg PO HS PRN 12/03/18 08/26/20 History gabapentin 100 mg PO TID 12/03/18 08/26/20 History lisinopril 5 mg PO DAILY 12/03/18 08/26/20 History mycophenolate mofetil 1,000 mg PO BID 12/03/18 08/26/20 History omeprazole 20 mg PO BID 12/03/18 08/26/20 History cholecalciferol (vitamin D3) 25 25 mcg PO DAILY 03/27/19 08/26/20 History mcg (1,000 unit) tablet Allergies Allergy/AdvReac Type Severity Reaction Status Date / Time No Known Allergies Allergy Verified 08/26/20 21:46 Past Med/Surg History Surgical History History of hysterectomy Social History Smoking Status: Current every day smoker Tobacco Type: Cigarettes Hx Alcohol Use: No Hx Substance Use: No Preferred Language: Vietnamese Communication Ability: Effective Head Doffer Required: No Beliefs That Will Affect Care: None marital status: Single Current Living Situation: Alone Feels Safe at Home: Yes Assistive Devices: None Review of Systems A total of 10 systems reviewed and were otherwise negative Physical Exam Vital Signs Vital Signs - 24 hr 08/26/20 20:59 08/26/20 22:30 08/26/20 22:48 Temperature 36.9 C Temperature Source Temporal Artery Scan Pulse Rate 97 H 88 Pulse Rate [Radial] 84 Pulse Rhythm [Radial] Regular Pulse Strength [Radial] Normal Respiratory Rate 16 19 22 Respiratory Effort / Characteristics Non-Labored Spontaneous Non-Labored Respiratory Depth Normal Normal Blood Pressure 152/74 H Blood Pressure [Right Arm] 101/70 Blood Pressure Mean 100 Blood Pressure Mean [Right Arm] 80 Blood Pressure Position Sitting Blood Pressure Position [Right Arm] Lying Pulse Oximetry 99 Oxygen Delivery Method Room Air Sepsis Recent Fever Within 48 Hours No Sepsis New/Unexplained Change in Mental Status N/A Sepsis Action Taken by Nursing No Action Required 08/26/20 23:00 08/26/20 23:06 08/26/20 23:31 Temperature Temperature Source Pulse Rate 84 80 79 Pulse Rate [Radial] Pulse Rhythm [Radial] Pulse Strength [Radial] Respiratory Rate 24 20 23 Respiratory Effort / Characteristics Respiratory Depth Blood Pressure 91/79 L 91/79 L 122/89 Blood Pressure [Right Arm] Blood Pressure Mean 83 83 100 Blood Pressure Mean [Right Arm] Blood Pressure Position Blood Pressure Position [Right Arm] Pulse Oximetry Oxygen Delivery Method Sepsis Recent Fever Within 48 Hours Sepsis New/Unexplained Change in Mental Status Sepsis Action Taken by Nursing 08/27/20 00:00 08/27/20 00:04 08/27/20 00:31 Temperature Temperature Source Pulse Rate 82 83 79 Pulse Rate [Radial] Pulse Rhythm [Radial] Pulse Strength [Radial] Respiratory Rate 22 20 22 Respiratory Effort / Characteristics Respiratory Depth Blood Pressure 124/86 124/86 121/88 Blood Pressure [Right Arm] Blood Pressure Mean 98 98 99 Blood Pressure Mean [Right Arm] Blood Pressure Position Blood Pressure Position [Right Arm] Pulse Oximetry Oxygen Delivery Method Sepsis Recent Fever Within 48 Hours Sepsis New/Unexplained Change in Mental Status Sepsis Action Taken by Nursing 08/27/20 01:00 Temperature Temperature Source Pulse Rate 78 Pulse Rate [Radial] Pulse Rhythm [Radial] Pulse Strength [Radial] Respiratory Rate 20 Respiratory Effort / Characteristics Respiratory Depth Blood Pressure 112/79 Blood Pressure [Right Arm] Blood Pressure Mean 90 Blood Pressure Mean [Right Arm] Blood Pressure Position Blood Pressure Position [Right Arm] Pulse Oximetry Oxygen Delivery Method Sepsis Recent Fever Within 48 Hours Sepsis New/Unexplained Change in Mental Status Sepsis Action Taken by Nursing CONSTITUTIONAL/VITAL SIGNS: Reviewed / noted above. GENERAL: Non-toxic in appearance. INTEGUMENTARY: Warm, dry, and [place]. HEAD: Normocephalic. EYES: without scleral icterus or trauma. ENT/OROPHARYNX: clear and moist. LYMPHADENOPATHY/NECK: Is supple without lymphadenopathy or meningismus. RESPIRATORY: Lungs clear and equal. CARDIOVASCULAR: Regular rate and rhythm. GI/ABDOMEN: Soft and nontender. No organomegaly or pulsatile mass. No rebound or guarding. Normal bowel sounds. EXTREMITIES: Warm and well perfused. BACK: No CVA tenderness. NEUROLOGICAL: The patient did not know who the last president was. Other orientation questions she seemed to get right. Cerebellar testing of the right arm and hand is abnormal. She was unable to adequately touch her nose or touch my finger with her right hand. She was not able to put her index finger into the pulse oximeter with the right hand but did so with the left hand. She is right-handed. When asked to touch her index finger to her nose, she touched it with her wrist. She either did not understand [id number] testing or was unable to perform it as she did not do it adequately. The patient on first glance appears to have some right lower facial weakness or droop, however the daughter states that this is normal for her. PSYCHIATRIC: normal affect. MUSCULOSKELETAL: Normally developed with good muscle tone. TRIAGE NURSING DOCUMENTATION REVIEWED. Course Administered Medications Sodium Chloride (Nss 1000ml) 1,000 mls @ 50 mls/hr IV .Q20H JONATHAN Stop: 09/25/20 21:29 Last Admin: 08/26/20 22:20 Dose: 50 mls/hr Documented by: [id number] Discontinued Medications Aspirin (Aspirin Chew 324 Mg) 324 mg PO NOW STA Stop: 08/26/20 22:54 Last Admin: 08/26/20 23:00 Dose: Not Given Documented by: [id number] Aspirin (Aspirin 300 Mg Supp) 300 mg NH ONE ONE Stop: 08/26/20 22:59 Last Admin: 08/26/20 23:06 Dose: 300 mg Documented by: [id number] Enoxaparin Sodium (Enoxaparin 80 Mg/0.8 Ml Syr) 70 mg 1 mg/kg (75 mg) SQ ONE STA Stop: 08/26/20 22:58 Last Admin: 08/26/20 23:06 Dose: 70 mg Documented by: [id number] Ioversol (Optiray 320 125ml) 125 ml IV ONCE ONE Stop: 08/26/20 22:05 Last Admin: 08/26/20 22:04 Dose: 120 ml Documented by: [id number] Medical Decision Making Differential Diagnosis Differential includes acute coronary syndrome, myocardial infarction, CVA, TIA, anemia, infection, pneumonia, UTI, pyelonephritis, poor nutrition, dehydration, electrolyte disturbance,hypoglycemia. Medical Records Attestation: I reviewed the patient's medical records. Home Medications Current Medication List: was personally reviewed by me Laboratory Data Attestation: I reviewed the patient's lab results. Result diagrams: 08/26/20 21:45 08/26/20 21:45 Lab Results 08/26/20 08/26/20 08/26/20 Range/Units 21:45 21:45 21:45 WBC 5.90 (4.8-10.8) K/uL RBC 4.17 L (4.2-5.4) M/uL Hgb 11.0 L (12.0-16.0) g/dL Hct 35.4 L (37-47) % MCV 84.9 (80-100) fL MCH 26.4 (25-34) pg MCHC 31.1 L (32-36) g/dL RDW Std Deviation 46.6 H (36.4-46.3) fL RDW Coeff of Myra 15.0 H (11.5-14.5) % Plt Count 248 (130-400) K/uL MPV 10.6 H (7.4-10.4) fL Immature Gran % (Auto) 0.0 % Neut % (Auto) 72.6 % Lymph % (Auto) 15.4 % [place] % (Auto) 11.2 % Eos % (Auto) 0.8 % Baso % (Auto) 0.0 % Neut # (Auto) 4.28 (1.4-6.5) K/uL Lymph # (Auto) 0.91 L (1.2-3.4) K/uL [place] # (Auto) 0.66 H (0.11-0.59) K/uL Eos # (Auto) 0.05 (0-0.5) K/uL Baso # (Auto) 0.00 (0-0.2) K/uL Immature Gran # (Auto) 0.00 (0.00-0.02) K/uL PT 10.3 (9.0-12.0) Seconds INR 1.0 (0.9-1.1) APTT 22.6 (21.0-31.0) Seconds PTT Ratio 0.9 Sodium 141 (136-145) mmol/L Potassium 3.5 (3.5-5.1) mmol/L Chloride 111 H (98-107) mmol/L Carbon Dioxide 26 (21-32) mmol/L Anion Gap 4.0 (3-11) BUN 26 H (7-18) mg/dl Creatinine 0.76 (0.6-1.2) mg/dl Est Cr Clr Drug Dosing 69.2 ml/min Est GFR ( Amer) 92.8 ml/min Est GFR (Non-Af Amer) 80.0 ml/min BUN/Creatinine Ratio 33.9 H (10-20) Glucose 86 (70-99) mg/dl Calcium 8.4 L (8.5-10.1) mg/dl Magnesium 2.0 (1.8-2.4) mg/dl Total Bilirubin 0.2 (0.2-1) mg/dl AST 27 (15-37) U/L ALT 15 (12-78) U/L Alkaline Phosphatase 84 (45-117) U/L Troponin I 0.181 H* (0-0.045) ng/ml Total Protein 8.9 H (6.4-8.2) gm/dl Albumin 2.9 L (3.4-5.0) gm/dl Globulin 6.0 H (2.5-4.0) gm/dl Albumin/Globulin Ratio 0.5 L (0.9-2) Imaging Data Radiologist's Impression: CT angiogram of the neck reveals no dissection. There is calcified plaque in the brachiocephalic artery, left carotid artery right carotid bulb and left carotid bifurcation. Vertebral arteries are patent bilaterally. CT angiogram of the head shows hypoplastic right A1 segment which is a normal variant, moderate calcifications in the cavernous carotid arteries. CT scan of the head noncontrast reveals no intracranial bleeding. Small vessel disease. ECG Data Attestation: I personally reviewed and interpreted this ECG as follows: Indication: + weakness Rate (beats per minute): 101 Rhythm: + sinus rhythm ECG Intervals/blocks: + Normal QT-c ECG ST segments: no ST elevation ECG Findings: + PACs; no PVCs MDM Narrative Patient presents to the ED with strokelike symptoms/neurologic symptoms with a last known well of greater than 27 hours ago. She seems to have abnormal function of her right arm and some mild memory issues. EKG shows a sinus tach. CBC and chemistry panel was unremarkable. Troponin was elevated 0.181. A CT scan of the brain as well as CT angiograms of the head neck are noted above. No significant abnormality. The patient was treated with aspirin NH and Lovenox subcu. She failed her dysphagia screen. She will be seen by the hospitalist for further evaluation and care. Patient does not meet any criteria for thrombolytics based on greater than 24 hours from presentation the last known well. Impression & Plan Acute CVA (cerebrovascular accident), Somatic dysfunction of right upper extremity, Elevated troponin Discharge Plan Visit Data Chief Complaint: Confusion Stated Complaint: SLURRED SPEECH , DISORIENTATION ED Provider: Laci Lees Discharge Problem: Acute CVA (cerebrovascular accident), Somatic dysfunction of right upper ex tremity, Elevated troponin Forms Stand Alone Forms: My [facility] [employer] Prescriptions Prescriptions: No Action cholecalciferol (vitamin D3) 25 mcg (1,000 unit) tablet 25 mcg PO DAILY RF: 0 doxepin 50 mg capsule 50 - 150 mg PO HS PRN (Reason: Sleep) RF: 0 mycophenolate mofetil 500 mg tablet 1,000 mg PO BID RF: 0 omeprazole 20 mg capsule,delayed release(DR/EC) 20 mg PO BID RF: 0 lisinopril 5 mg tablet 5 mg PO DAILY RF: 0 gabapentin 100 mg capsule 100 mg PO TID RF: 0
[2020-08-26] MEDS ORDERED: OPTIRAY 320 125ml IV ONE (22:04)
[2020-08-26 22:05] LABS: Eosinophils # (auto) 0.05 K/uL (0-0.5); Eosinophils % (auto) 0.8 %; Hematocrit (blood only) 35.4 % (37-47); Lymphocytes # (auto) 0.91 K/uL (1.2-3.4); Lymphocytes % (auto) 15.4 %; Mean Corpuscular Hemoglobin 26.4 pg (25-34); Mean Corpuscular Hgb Conc 31.1 g/dL (32-36); Mean Corpuscular Volume 84.9 fL (80-100); Mean Platelet Volume 10.6 fL (7.4-10.4); Monocytes # (auto) 0.66 K/uL (0.11-0.59); Monocytes % (auto) 11.2 %; Neutrophils # (auto) 4.28 K/uL (1.4-6.5); Neutrophils % (auto) 72.6 %; Platelet Count 248 K/uL (130-400); RDW Standard Deviation 46.6 fL (36.4-46.3); Red Blood Count 4.17 M/uL (4.2-5.4)
[2020-08-26 22:17] LABS: Partial Thromboplastin Ratio 0.9; Partial Thromboplastin Time 22.6 Seconds (21.0-31.0); Prothrombin Time 10.3 Seconds (9.0-12.0)
[2020-08-26 22:21] LABS: Albumin Level 2.9 gm/dl (3.4-5.0); BUN Creatinine Ratio 33.9 (10-20); Calcium 8.4 mg/dl (8.5-10.1); Creatinine Clr Calc Pharmacy 69.2 ml/min; Est GFR (African American) 92.8 ml/min; Potassium 3.5 mmol/L (3.5-5.1)
[2020-08-26 22:27] LABS: Albumin Globulin Ratio 0.5 (0.9-2); Bilirubin,Total 0.2 mg/dl (0.2-1); Total Protein 8.9 gm/dl (6.4-8.2); Troponin I 0.181 ng/ml (0-0.045)
[2020-08-26] MEDS ORDERED: ASPIRIN CHEW 324 MG PO STA (22:53)
[2020-08-26] MEDS ORDERED: ENOXAPARIN 1 MG/KG SC STA (22:54)
[2020-08-26] MEDS ORDERED: ENOXAPARIN 80 MG/0.8 ML SYR SQ STA (22:57)
[2020-08-26] MEDS ORDERED: ASPIRIN 300 MG SUPP PR ONE (22:58)
[2020-08-27 02:38] LABS: Thyroid Stimulating Hormone 5.08 uIu/ml (0.300-4.500); Troponin I 0.191 ng/ml (0-0.045)
[2020-08-27 02:42] LABS: Appearance Urine Cloudy (Clear); Bacteria Urine Automated 4+ (Negative); Bilirubin Urine Negative (Negative); Blood Urine Negative (Negative); Color Urine Yellow; Epithelial Cell Urine Auto >30 /lpf (0-5); Glucose Urine UA Negative (Negative); Ketones Urine Negative (Negative); Leukocyte Esterase Urine 2+ (Negative); Nitrite Urine Negative (Negative); Protein Urine Negative (Negative); RBC Urine Automated 0-4 /hpf (0-4); Specific Gravity Urine > 1.045 (1.000-1.030); Urobilinogen Urine Negative (Negative); WBC Urine Automated >30 /hpf (0-5)
--- NOTE | 2020-08-27 02:51 | History & Physical Report ---
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 Troponin elevation likely secondary to stroke doubt ACS hypertension, BP on the lower side dermatomyositis (periodic outpatient IVIG infusion tx) COPD/ILD/pulmonary hypertension as per records, pulmonary status stable New onset anemia, stool Hemoccult at the ER was negative ongoing tobacco abuse Medical telemetry CS, Cefepime Neurochecks Aspirin, statin for secondary stroke prevention MRI brain, TTE for additional stroke work-up Neurology consult Re: CVA IVF, appropriate to hold BP meds for now given low BP to optimize cerebral perfusion Follow troponin Anemia work-up, transfuse PRBC if hemoglobin less than 8 and or for symptomatic anemia if patient family agreeable (Patient currently unable to consent due to mentation issues.) Nicotine patch as needed DVT prophylaxis. Lovenox subcu Full code until CODE STATUS clarified with family Attempted to contact patient's daughter over the phone (Ms. Scott Villa, contact #[phone]) to give update on plan of care. No answer. Left voice message for call back. Text document was generated using [employer] voice recognition software. It may contain grammatical or spelling errors. Kindly contact undersigned for clarification of any documentation item in question. History of Present Illness Chief Complaint: Confusion as per records Primary Care Provider: Ryan Hatfield MD History obtained from patient and records. History limited from patient secondary to confusion. Medical history significant for hypertension, dermatomyositis (periodic outpatient IVIG infusion tx), COPD/ILD/pulmonary hypertension as per records, GERD, ongoing tobacco abuse. Last confinement 2018 for colitis. Patient unable to answer phone call from daughter last night due to right upper extremity weakness. Patient seemed confused and disoriented when daughter checked on patient at home. Speech somewhat slurred. Patient denies chest pain, S OB, abdominal pain, dysuria symptoms. Patient denies black/bloody stools. Patient brought to the ER for evaluation. Patient given aspirin for possible stroke. Weight-based Lovenox administered at the ER for possible ACS. Medical History as above Surgical History : Cholecystectomy, BTL, carpal tunnel surgery, shoulder surgery, muscle biopsy Family History : Heart disease, bone cancer, melanoma Personal/Social history : Few cigarettes a day, occasional EtOH intake, retired store employee Allergies Allergy/AdvReac Type Severity Reaction Status Date / Time No Known Allergies Allergy Verified 08/26/20 21:46 Home Medications Medication Instructions Recorded Confirmed Type doxepin 50 - 150 mg PO HS PRN 12/03/18 08/26/20 History gabapentin 100 mg PO TID 12/03/18 08/26/20 History lisinopril 5 mg PO DAILY 12/03/18 08/26/20 History mycophenolate mofetil 1,000 mg PO BID 12/03/18 08/26/20 History omeprazole 20 mg PO BID 12/03/18 08/26/20 History cholecalciferol (vitamin D3) 25 25 mcg PO DAILY 03/27/19 08/26/20 History mcg (1,000 unit) tablet Past Med/Surg History Surgical History History of hysterectomy Social History Smoking Status: Current every day smoker Tobacco Type: Cigarettes Smoking End Date: a ; Do You Dip or Chew Tobacco: No; Tobacco Cessation Education Requested by Patient: No Hx Alcohol Use: No Hx Substance Use: No Preferred Language: Turkmen Communication Ability: Impaired Communication Ability Comment: currently having some aphasia [employer] Required: No Beliefs That Will Affect Care: None marital status: Single Current Living Situation: Alone Other Information That Helps Us Care for You: No Feels Safe at Home: Yes Safety Concerns: Feels Safe At This Time Assistive Devices: Denture - Upper, Denture - Lower and Glasses Review of Systems Review of Systems: Could not be reliably obtained Physical Exam Physical Exam: GENERAL: Comfortable, pleasant, disoriented, dysarthric, no respiratory distress SKIN: Normal color, warm HEENT: Bespectacled, Cornelius palpebral conjunctivae, no ptosis, dry buccal mucosa NECK : Supple, no tenderness CHEST : Decreased breath sounds, no tenderness HEART : RRR, no obvious murmurs ABDOMEN: Some distention, nontender RECTAL : Intact sphincter, dark stool (FOBT negative) EXTREMITIES : No LE swelling/tenderness, no other conspicuous deformities noted NEUROLOGIC : Coherent, flattened nasolabial fold right, dysarthria, MMTS UE/LE 4/5 R < L, gait and stance not assessed Results & Data Results & Data ([facility]) Vital Signs (Past 12 Hours) Vital Signs Temp Pulse Pulse Resp BP BP Pulse Ox 08/27/20 01:00 78 20 112/79 08/27/20 00:31 79 22 121/88 08/27/20 00:04 83 20 124/86 08/27/20 00:00 82 22 124/86 08/26/20 23:31 79 23 122/89 08/26/20 23:06 80 20 91/79 L 08/26/20 23:00 84 24 91/79 L 08/26/20 22:48 88 22 08/26/20 22:30 84 19 101/70 08/26/20 20:59 36.9 C 97 H 16 152/74 H 99 Laboratory Results Laboratory Results WBC 5.90 K/uL (4.8-10.8) 08/26/20 21:45 RBC 4.17 M/uL (4.2-5.4) L 08/26/20 21:45 Hgb 11.0 g/dL (12.0-16.0) L 08/26/20 21:45 Hct 35.4 % (37-47) L 08/26/20 21:45 MCV 84.9 fL (80-100) 08/26/20 21:45 MCH 26.4 pg (25-34) 08/26/20 21:45 MCHC 31.1 g/dL (32-36) L 08/26/20 21:45 RDW Std Deviation 46.6 fL (36.4-46.3) H 08/26/20 21:45 RDW Coeff of Myra 15.0 % (11.5-14.5) H 08/26/20 21:45 Plt Count 248 K/uL (130-400) 08/26/20 21:45 MPV 10.6 fL (7.4-10.4) H 08/26/20 21:45 Immature Gran % (Auto) 0.0 % 08/26/20 21:45 Neut % (Auto) 72.6 % 08/26/20 21:45 Lymph % (Auto) 15.4 % 08/26/20 21:45 [place] % (Auto) 11.2 % 08/26/20 21:45 Eos % (Auto) 0.8 % 08/26/20 21:45 Baso % (Auto) 0.0 % 08/26/20 21:45 Neut # (Auto) 4.28 K/uL (1.4-6.5) 08/26/20 21:45 Lymph # (Auto) 0.91 K/uL (1.2-3.4) L 08/26/20 21:45 [place] # (Auto) 0.66 K/uL (0.11-0.59) H 08/26/20 21:45 Eos # (Auto) 0.05 K/uL (0-0.5) 08/26/20 21:45 Baso # (Auto) 0.00 K/uL (0-0.2) 08/26/20 21:45 Immature Gran # (Auto) 0.00 K/uL (0.00-0.02) 08/26/20 21:45 PT 10.3 Seconds (9.0-12.0) 08/26/20 21:45 INR 1.0 (0.9-1.1) 08/26/20 21:45 APTT 22.6 Seconds (21.0-31.0) 08/26/20 21:45 PTT Ratio 0.9 08/26/20 21:45 Sodium 141 mmol/L (136-145) 08/26/20 21:45 Potassium 3.5 mmol/L (3.5-5.1) 08/26/20 21:45 Chloride 111 mmol/L (98-107) H 08/26/20 21:45 Carbon Dioxide 26 mmol/L (21-32) 08/26/20 21:45 Anion Gap 4.0 (3-11) 08/26/20 21:45 BUN 26 mg/dl (7-18) H 08/26/20 21:45 Creatinine 0.76 mg/dl (0.6-1.2) 08/26/20 21:45 Est Cr Clr Drug Dosing 69.2 ml/min 08/26/20 21:45 Est GFR ( Amer) 92.8 ml/min 08/26/20 21:45 Est GFR (Non-Af Amer) 80.0 ml/min 08/26/20 21:45 BUN/Creatinine Ratio 33.9 (10-20) H 08/26/20 21:45 Glucose 86 mg/dl (70-99) 08/26/20 21:45 Calcium 8.4 mg/dl (8.5-10.1) L 08/26/20 21:45 Magnesium 2.0 mg/dl (1.8-2.4) 08/26/20 21:45 Total Bilirubin 0.2 mg/dl (0.2-1) 08/26/20 21:45 AST 27 U/L (15-37) 08/26/20 21:45 ALT 15 U/L (12-78) 08/26/20 21:45 Alkaline Phosphatase 84 U/L (45-117) 08/26/20 21:45 Ammonia 28.0 umol/L (11-32) 08/27/20 01:55 Troponin I 0.191 ng/ml (0-0.045) H* 08/27/20 01:55 Total Protein 8.9 gm/dl (6.4-8.2) H 08/26/20 21:45 Albumin 2.9 gm/dl (3.4-5.0) L 08/26/20 21:45 Globulin 6.0 gm/dl (2.5-4.0) H 08/26/20 21:45 Albumin/Globulin Ratio 0.5 (0.9-2) L 08/26/20 21:45 TSH 5.080 uIu/ml (0.300-4.500) H 08/27/20 01:55 Urine Color Yellow 08/27/20 02:30 Urine Appearance Cloudy (Clear) A 08/27/20 02:30 Urine pH 5.0 (4.5-7.5) 08/27/20 02:30 Ur Specific [place] > 1.045 (1.000-1.030) H 08/27/20 02:30 Urine Protein Negative (Negative) 08/27/20 02:30 Urine Glucose (UA) Negative (Negative) 08/27/20 02:30 Urine Ketones Negative (Negative) 08/27/20 02:30 Urine Blood Negative (Negative) 08/27/20 02:30 Urine Nitrite Negative (Negative) 08/27/20 02:30 Urine Bilirubin Negative (Negative) 08/27/20 02:30 Urine Urobilinogen Negative (Negative) 08/27/20 02:30 Ur Leukocyte Esterase 2+ (Negative) H 08/27/20 02:30 COVID-19 Eval Order Covid19 at [facility] 08/27/20 01:[address] head initial read: There is an approximately 2 cm area of encephalomalacia in the right frontal lobe and a smaller approximately 1.5 cm area of encephalomalacia in the right parietal lobe consistent with old cerebral infarcts, new since 2011. There is mild periventricular white matter low density bilaterally consistent with chronic small vessel disease. No evidence of acute large vessel infarct or acute intracranial hemorrhage. The paranasal sinuses and mastoid air cells are normal. No skull fracture or scalp hematoma is seen. CT angio head initial read: Comparison to CT head from August 26, 2020. Moderate calcification of the cavernous portions of the distal internal carotid arteries bilaterally with up to 50% stenosis on the right and 20% stenosis on the left. Hypoplastic right A1 segment with the anterior cerebral arteries filling mostly from the left side. This is a normal variant. The distal vertebral and basilar arteries are widely patent. The anterior, middle, and posterior cerebral arteries appear within normal limits. No aneurysm, vascular malformation, or arterial thrombus is identified. CT angio neck initial read: Atherosclerotic calcification of the aortic arch which is nondilated measuring up to 3.6 cm. No dissection is seen. Suboptimal visualization of severe calcified plaque in the origin of the right brachiocephalic artery which is partially obscured by motion and artifact from venous contrast in the adjacent right subclavian and brachiocephalic veins. There is also severe calcified plaque obscuring the origin of the left common carotid artery from the aortic arch likely mild to moderate stenosis. Consider MR angiogram or conventional angiogram for further visualization of possible severe stenosis or segmental occlusion of the brachiocephalic artery. Densely calcified plaque in the right carotid bifurcation and right carotid bulb causes 40-50% stenosis of the proximal right internal carotid artery. Heavily calcified plaque in the left carotid bifurcation with 30-40% stenosis of the proximal left internal carotid artery. Widely patent vertebral arteries bilaterally. No stenosis or dissection. Chest x-ray as per my interpretation chronic interstitial disease EKG as per my interpretation : Rate 90, NSR, LAD, LAFB, LVH, no ischemia, PVCs
[2020-08-27 02:55] LABS: Cast Urine Automated 0 /lpf (0-5)
[2020-08-27] MEDS ORDERED: CEFEPIME 2,000 MG/20 ML VIAL IV STA (03:23)
[2020-08-27] MEDS ORDERED: PROMETHAZINE HCL 6.25 MG in SODIUM CHLORIDE 0.9% 50 ML IV PRN (05:32)
[2020-08-27] MEDS ORDERED: CEFEPIME CONSULT ACTIVE PRN (05:32)
[2020-08-27] MEDS ORDERED: PHARMACIST DISCHARGE MED REC CONSULT PRN (05:32)
[2020-08-27] MEDS ORDERED: ACETAMINOPHEN 325 MG TAB PO PRN (05:32)
[2020-08-27] MEDS ORDERED: POTASSIUM CHLORIDE 40 MEQ in LACTATED RINGER'S 1,000 ML IV ONE (06:00)
[2020-08-27] MEDS ORDERED: lisinopril 2.5 MG TAB PO SCH (06:40)
--- NOTE | 2020-08-27 07:31 | CT Scan Report ---
CT SCAN OF THE BRAIN WITHOUT IV CONTRAST CLINICAL HISTORY: Strokelike symptoms. COMPARISON STUDY: MRI of the brain dated 12/22/2011. TECHNIQUE: Unenhanced axial CT scan of the brain is performed from the vertex to the skull base. A do se lowering technique was utilized adhering to the principles of ALARA. CT DOSE: 638.56 mGycm FINDINGS: Brain parenchyma: There is focal loss of magaña-white matter differentiation the right frontal lobe see n on image #13, as well as in the right parieto-occipital region seen on image #16. There are age-rel ated involutional changes noting mild subcortical and periventricular microangiopathic change. There is no hemorrhage or mass effect. A small chronic infarct is seen in the high right frontal lobe. No extra-axial fluid collection is seen. Ventricles, sulci, cisterns: Prominent secondary to involutional change. Intracranial vasculature: There is atherosclerotic calcification of the cavernous carotid arteries. Calvarium: Unremarkable. Sinuses and mastoids: The visualized paranasal sinuses are clear. The mastoid air cells are well pneu matized. Orbits: The bony orbits are grossly intact. IMPRESSION: 1. There are foci with loss of magaña-white differentiation identified in the right frontal lobe and th e right parieto-occipital lobe suspicious for subacute infarcts. 2. There is no hemorrhage or mass effect. ACT 112: Negative or not required by law. Electronically signed by: Ziyad Estrella M.D. 08/27/2020 7:30 AM
--- NOTE | 2020-08-27 07:47 | CT Scan Report ---
CT ANGIOGRAM OF THE NECK CLINICAL HISTORY: Strokelike symptoms. COMPARISON STUDY: No priors. TECHNIQUE: Following the IV administration of 120 of Optiray 320, CT angiogram of the neck was perfor med from the aortic arch to the skull base. Images are reviewed in the axial, sagittal, and coronal p lanes. 3-D MIPS images are created and assessed. IV contrast was administered without complication. A ll measurements were calculated based on NASCET criteria. A dose lowering technique was utilized adh ering to the principles of ALARA. FINDINGS: Thoracic aorta: There is atherosclerotic calcification of the thoracic aorta. Visualized portions of the thoracic aorta are normal in caliber. The aortic arch demonstrates standard 3-vessel anatomy. Right carotid arterial system: The right common carotid artery is widely patent. There is advanced ch ronic plaque in the carotid bulb. This causes approximately 50% stenosis of the proximal right buying intern al carotid artery seen on image #121. The remainder of the right internal carotid artery is patent, a s is the right external carotid artery. Left carotid arterial system: The left common carotid artery is widely patent, as are the left buying intern al and external carotid arteries. Calcified plaque is noted in the carotid bulb. Vertebral arteries: The vertebral arteries are widely patent bilaterally and codominant. Subclavian arteries: There is advanced atherosclerotic calcification of the innominate artery with po ssible high-grade stenosis. This is not well assessed due to significant streak artifact. The subclav jose manuel arteries are patent bilaterally. Intracranial vasculature: The visualized intracranial vessels at the skull base appear patent. Jugular veins: Widely patent bilaterally. Brain parenchyma: The visualized brain parenchyma the skull base is within normal limits. Lung apices: Emphysematous change is noted with apical scarring. Soft tissues: The visualized pharyngeal soft tissues are normal in appearance noting angiographic pha se technique. The oropharyngeal airway appears widely patent. The salivary and thyroid glands are nor mal in appearance. No cervical lymphadenopathy is seen. Skeletal structures: The skeletal structures are osteopenic. The visualized calvarium at the skull ba se appears intact. The imaged cervical spine is maintained noting mild spondylosis. No lytic or blast ic lesion is seen. Sinuses and mastoids: The visualized paranasal sinuses are clear. The mastoid air cells are well pneu matized. IMPRESSION: 1. There is approximately 50% stenosis of the proximal right internal carotid artery. 2. The left carotid arterial system and the vertebral arteries are patent. 3. Question high-grade stenosis/near complete occlusion of the innominate artery. This is not well as sessed due to significant streak artifact. If further evaluation is desired a CT angiogram of the [address] st would be appropriate. 4. Emphysema. ACT 112: Negative or not required by law. Electronically signed by: Ziyad Estrella M.D. 08/27/2020 7:46 AM
--- NOTE | 2020-08-27 07:56 | XRay Report ---
XR chest 1V portable CLINICAL HISTORY: Stroke Like Symptoms COMPARISON STUDY: Chest CT March 27, 2019. FINDINGS: Lung volumes are mildly diminished. This is unchanged. Interstitial thickening is chronic a nd represents interstitial lung disease. Linear bibasilar opacities favor atelectasis or scarring. Ca rdiomediastinal silhouette is stable. Appearance of the chest is unchanged. IMPRESSION: 1. No acute cardiopulmonary findings. No change in appearance of the chest. 2. Chronic interstitial thickening consistent with interstitial lung disease. ACT 112: Negative or not required by law. Electronically signed by: Nadir Fleming M.D. 08/27/2020 7:55 AM
--- NOTE | 2020-08-27 08:36 | CT Scan Report ---
CT angio head w con CLINICAL HISTORY: Stroke Like Symptoms TECHNIQUE: CT angiography of the head was performed in a dynamic helical fashion during intravenous a dministration of 120 cc of Optiray. MIP imaging was performed. A dose lowering technique was utilized adhering to the principles of ALARA. CT DOSE: 1000.69 mGycm COMPARISON STUDY: No previous studies for comparison. FINDINGS: There are no lesion suspicious for aneurysm. There are no major intracranial branch occlusi ons. The dural venous sinuses appear patent. There are cavernous sinus carotid calcifications without evidence of hemodynamically significant stenosis. IMPRESSION: 1. No evidence of major intracranial branch occlusion 2. No evidence of aneurysm 3. Cavernous sinus carotid calcifications without evidence of hemodynamically significant stenosis.. ACT 112: Negative or not required by law. Electronically signed by: Markus Lora M.D. 08/27/2020 8:34 AM
[2020-08-27] MEDS: MYCOPHENOLATE MOFETIL 250 MG CAP PO SCH ×2 (11:16→20:10)
[2020-08-27] MEDS: CEFEPIME 2,000 MG in SYRINGE 0 ML IV SCH ×2 (11:16→20:04)
[2020-08-27] MEDS: ASPIRIN 81 MG ECTAB PO SCH (11:17)
[2020-08-27] MEDS: ATORVASTATIN 40 MG TAB PO SCH (11:18)
[2020-08-27] MEDS: PANTOprazole 40 MG TAB PO SCH ×2 (11:18→20:10)
--- NOTE | 2020-08-27 11:36 | Consultation ---
Date of Consultation August 27, 2020 Assessment & Plan (1) Aortic arch atherosclerosis: According to the patient's presentation history as well exam she has right upper extremity weakness even though she claims it is the left arm. Her CTA showed a 50% stenosis of the right internal carotid artery and 30 to 40% stenosis of the left internal carotid artery however the left internal carotid artery origin off the arch is very heavily calcified. The right innominate artery may also be severely stenotic or occluded at its origin off the arch. If her symptoms are indeed right upper extremity with a left hemisphere lesion, then her heavily calcified left common carotid artery origin plaque may be significant as the source of her symptoms. The CT of the head did show subacute infarcts in the right hemisphere. Her carotid on this side was read as 50% but may be slightly more narrow. If these subacute infarcts are from embolization consideration of embolization from the innominate origin should be entertained. I recommended a CT or MR angio to better look at these arteries. The patient refused to have another CT/MR scan at this point. At this time I would treat her conservatively with aspirin and Plavix. If she should decide to go ahead with the CT angio or MR angio, please notify me after the study was performed. Thank you very much for letting us participate in the care of this patient. 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 Attending Physician: Mercedes Sethi, History of Present Illness This 70-year-old female who presented to emergency department yesterday. She had difficulty with her right arm. She also had confusion. Her confusion and her right arm deficit and weakness was witnessed by her daughter. The patient today claims that she has left arm weakness which started approximately 3 days before she came to the hospital. She claims to be right-handed. She claims to have left arm weakness still present. She denies any symptoms of claudication of her right upper extremity. She also appears to be slightly confused with decreased affect. She denies any previous history of strokes. She denies any heart disease or arrhythmias. She does smoke. She denies to be diabetic or hypertensive. Allergies Allergy/AdvReac Type Severity Reaction Status Date / Time No Known Allergies Allergy Verified 08/26/20 21:46 Home Medications Medication Instructions Recorded Confirmed Type doxepin 50 - 150 mg PO HS PRN 12/03/18 08/26/20 History gabapentin 100 mg PO TID 12/03/18 08/26/20 History lisinopril 5 mg PO DAILY 12/03/18 08/26/20 History mycophenolate mofetil 1,000 mg PO BID 12/03/18 08/26/20 History omeprazole 20 mg PO BID 12/03/18 08/26/20 History cholecalciferol (vitamin D3) 25 25 mcg PO DAILY 03/27/19 08/26/20 History mcg (1,000 unit) tablet Patient History Surgical History History of hysterectomy Social History Smoking Status: Current every day smoker Tobacco Type: Cigarettes Smoking End Date: pach a day; Do You Dip or Chew Tobacco: No; Tobacco Cessation Education Requested by Patient: No Hx Alcohol Use: No Hx Substance Use: No Preferred Language: Serbian Communication Ability: Impaired Communication Ability Comment: currently having some aphasia Rn Primary Care Required: No Beliefs That Will Affect Care: None marital status: Single Current Living Situation: Alone Other Information That Helps Us Care for You: No Feels Safe at Home: Yes Safety Concerns: Feels Safe At This Time Assistive Devices: Denture - Upper, Denture - Lower and Glasses Review of Systems Review of Systems: All systems reviewed & are unremarkable except as noted in HPI & below Physical Exam Constitutional: well developed and well nourished; no acute distress Respiratory: normal respiratory effort, lungs clear to auscultation Cardiovascular: Rate/Rhythm: regular rate and regular rhythm Vessels: femoral pulses present, brachial pulses present (+2 on the left none on the right) and radial pulses present (+2 on the left none on the right) Extremities: normal capillary refill; no edema Gastrointestinal (Abdomen): Inspection/Auscultation: abdomen normal to inspection Percussion/Palpation: abdomen soft; abdomen nontender Musculoskeletal: Extremities: extremities normal to inspection and + abnormal strength (Slightly weaker on the right than the left); no cyanosis and no petechiae Skin: no rashes, warm and dry Neurologic: CN's II-XI intact bilaterally, moves all extremities and + focal motor deficit (Right arm slightly weaker than the left) Psychiatric: Orientation: alert Affect: + flat affect Thought Process: + thought process not clear or coherent She appears to be slightly confused at times. She also appears to be slow with responding to questions. Results & Data ([facility]) Vital Signs (Past 12 Hours) Vital Signs Temp Pulse Pulse Resp BP BP Pulse Ox 08/27/20 08:33 36.8 C 75 19 111/75 97 08/27/20 06:10 169/80 H 08/27/20 05:50 37 C 78 21 186/82 H 97 08/27/20 05:30 76 08/27/20 04:30 75 20 104/72 08/27/20 04:01 85 18 119/86 08/27/20 03:30 74 18 104/75 08/27/20 03:00 76 20 126/79 08/27/20 02:31 78 21 110/88 08/27/20 02:00 77 19 109/77 08/27/20 01:31 78 21 121/76 08/27/20 01:00 78 20 112/79 08/27/20 00:31 79 22 121/88 08/27/20 00:04 83 20 124/86 CT angio neck initial read: Atherosclerotic calcification of the aortic arch which is nondilated measuring up to 3.6 cm. No dissection is seen. Suboptimal visualization of severe calcified plaque in the origin of the right brachiocephalic artery which is partially obscured by motion and artifact from venous contrast in the adjacent right subclavian and brachiocephalic veins. There is also severe calcified plaque obscuring the origin of the left common carotid artery from the aortic arch likely mild to moderate stenosis. Consider MR angiogram or conventional angiogram for further visualization of possible severe stenosis or segmental occlusion of the brachiocephalic artery. Densely calcified plaque in the right carotid bifurcation and right carotid bulb causes 40-50% stenosis of the proximal right internal carotid artery. Heavily calcified plaque in the left carotid bifurcation with 30-40% stenosis of the proximal left internal carotid artery. Widely patent vertebral arteries bilaterally. No stenosis or dissection. 08/27/20 00:00 82 22 124/86
--- NOTE | 2020-08-27 12:45 | Electrocardiogram Report ---
Test Reason : Blood Pressure : / mmHG Vent. Rate : 090 BPM Atrial Rate : 090 BPM P-R Int : 168 ms QRS Dur : 086 ms QT Int : 374 ms P-R-T Axes : 052 -34 045 degrees QTc Int : 457 ms Sinus rhythm with Premature atrial complexes Left axis deviation Voltage criteria for left ventricular hypertrophy Abnormal ECG When compared with ECG of 28-JAN-2016 06:20, Premature atrial complexes are now Present Criteria for Inferior infarct are no longer Present Confirmed by Vito Marie ([id number]) on 08/27/2020 12:45:37 PM Referred By: REFERRED SELF Confirmed By:Vito Marie
--- NOTE | 2020-08-27 13:07 | Consultation Report ---
NEUROLOGY CONSULTATION DATE OF CONSULTATION: 08/27/2020 CHIEF COMPLAINT: Confusion HISTORY OF PRESENT ILLNESS: A 70-year-old female admitted from the Emergency Department yesterday for confusion. History was limited due to the altered mental status. The patient does have a past medical history of hypertension, dermatomyositis and previously received outpatient IVIG, COPD, and ongoing tobacco use. She was last admitted in 2019 for colitis. Family called the patient yesterday and the patient was unable to answer the phone. She was unable to answer the phone due to right arm weakness. The patient was confused and disoriented when the daughter checked on her. Her speech was slurred. She was brought to the Emergency Department for evaluation. She was started on aspirin for possible stroke. She was also started on weight-based Lovenox, which was given in the ER for possible acute coronary syndrome. The patient was admitted and neurology was consulted for confusion. ALLERGIES: No known allergies. HOME MEDICATIONS: Vitamin D, gabapentin 100 mg 3 times daily, lisinopril 5 mg daily, mycophenolate mofetil 1000 mg twice daily, omeprazole. PAST SURGICAL HISTORY: Cholecystectomy, BTL, carpal tunnel surgery, shoulder surgery, muscle biopsy. FAMILY HISTORY: Heart disease, bone cancer, melanoma. PERSONAL HISTORY: She smokes cigarettes daily, occasional alcohol use. She is retired. REVIEW OF SYSTEMS: Unable to be performed due to altered mental status. PHYSICAL EXAMINATION: VITAL SIGNS: Blood pressure 111/75, pulse is 75, respiratory rate is 19, temperature is 36.8 degrees Celsius. GENERAL: The patient appears normally developed, non-obese. HEENT: Head is normocephalic and atraumatic. Normal eyelids. Normal conjunctivae. NECK: Supple. LUNGS: Normal respiratory effort. HEART: Normal cardiac pulses. ABDOMEN: Nondistended. SKIN: No skin rash. PSYCHIATRIC: Normal mood. NEUROLOGIC: Patient is awake and alert. Her comprehension is impaired. She is not able to repeat. She is having difficulty following simple commands such as show me her right hand. She is not moving the right hand. She does lift both arms against gravity. Difficulty with [id number] testing due to aphasia. Her speech is clear her face is symmetric. Difficulty with formal strength testing due to the aphasia. Tongue is midline without abrasion. Poor dentition is missing her top teeth. She is moving all 4 extremities against gravity sensation is intact to light touch. DIAGNOSTIC TESTING AND LABORATORY VALUES: WBC 5.90, hemoglobin 11.0, hematocrit 35.4, platelet count 248. INR is 1.0. Sodium 141, potassium 3.5, chloride 111, BUN 26, creatinine 0.76. Urinalysis showed cloudy appearance, 2+ leukocyte esterase, 30 WBCs, 30 epithelial cells, 4+ bacteria. The urine culture is pending. Imaging: Head CT noncontrast; there are foci with loss of magaña-white differentiation identified in the right frontal lobe and in the right parietooccipital lobe suspicious for subacute infarcts. There is no evidence of hemorrhage or mass effect. Head and neck CTA showed no evidence of major intracranial branch occlusion, no evidence of aneurysm, cavernous sinus carotid calcifications without evidence of hemodynamically significant stenosis. There is approximately 50% stenosis of the proximal right internal carotid artery. The left carotid arterial system and vertebral arteries are patent. Question of high-grade stenosis or near complete occlusion of the innominate artery. ASSESSMENT AND PLAN: A 70-year-old woman admitted with acute onset aphasia and right hand weakness presumed due to a acute to subacute right MCA ischemic stroke seen on recent CT head noncontrast which showed lucencies in the right frontal and parietal lobes. Patient has no prior history of stroke and is not on aspirin. She does receive IVIG for known diagnosis of dermatomyositis. On examination this afternoon patient has a global aphasia as well as weakness in the right hand. I did discuss and review her recent imaging with family at bedside. The patient does not have decision-making capacity at this time due to her aphasia. I would strongly recommend an MRI of the brain without contrast although patient unable to perform or refuses a repeat CT head noncontrast tomorrow would be reasonable. Of note recent CT a of the head and neck showed no high-grade stenosis of the carotid arteries although there was concerns for a significant stenosis of the right brachiocephalic artery. Agree with vascular surgery consultation and appreciate their input. Patient will need a CT angiogram of the chest with contrast. Otherwise I will defer to the primary care team for management of her urinary tract infection which may also be contributing to some of her speech difficulty. However I am concerned that the patient may have sustained embolic strokes on the left which we did not see on CT head noncontrast. Therefore MRI of the brain is critical. Vascular surgery recommending aspirin 81 mg daily and Plavix 75 mg daily for now for maximal medical management. Agree with starting antiplatelet agent as the patient was not on aspirin at home. For now giving the finding of the severe stenosis or occlusion in the right brachiocephalic artery would continue permissive hypertension for now. Urine culture is pending. Plan discussed with Dr. Mercedes Sethi. Neurology will continue to follow. Job ID: [id number] MTDD
--- NOTE | 2020-08-27 18:29 | Hospitalist Progress Note ---
Date of Service August 27, 2020 Assessment & Plan (1) Acute metabolic encephalopathy: in setting of CVA and UTI. Cont treatment plan below and follow clinical picture. (2) Acute CVA (cerebrovascular accident): aphasia present, right sided hemineglect and weakness. Permissive hypertension for 48 hours to allow increased cerebral perfusion pressure. DAPT recommended with high intensity statin therapy (Lipitor). Rehab recommended. Limited echo, cont telemetry. MRI brain retry in am, otherwise need repeat CT head. Neuro following. (3) UTI (urinary tract infection): Cefepime pending further cultures and clinical improvement. 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 Vascular consulted. CT chest with contrast ordered, however, patient declined. Cont DAPT. Will attempt CT chest again in am. (5) Elevated troponin: 2/2 stroke. (6) Dermatomyositis: cont CellCept per outpatient regimen. (7) Anemia: uncertain cause. Workup pending. (8) DVT prophylaxis: Lovenox Full Code Dispo-cont telemetry monitoring. Rehab recommended. Updated daughter by phone this evening. Mercedes Sethi DO [facility] Hospitalist Admission and Anticipated Discharge Date Admission Date: August 27, 2020 Subjective 70 yo F admitted for right sided weakness, confusion and difficulty speaking. CT head without contrast revealed right frontal and parietal lucencies consistent with acute to subacute strokes. She was unable to tolerate an MRI today. She underwent a CTA of the head and neck overnight, revealing a significant stenosis of the right brachiocephalic artery. Vascular surgery was consulted and a CT chest with contrast was later ordered but refused by the patient. She was seen by speech therapy and diet modifications were made. An echo was performed revealing an EF 55-60%, Grade II diastolic dysfunction. She refused microcavitation procedure. PT evaluated her and recommended rehab as a transition to home. The patient denies pain, is having trouble expressing herself but is not in any distress. She denies UTI symptoms or other issues at this time. She is able to tell me her name. I discussed the case by phone this evening with the patients daughter, Sol, and answered all her questions. I discussed the plan with Dr. Popeye Lux of Neurology who reported that he had also updated the family this afternoon. Review of Systems Review of Systems: All systems reviewed & are unremarkable except as noted in Subjective Physical Exam Physical Exam: CONSTITUTIONAL: WNWD, vitals as above, generally NAD EYES: Patient was not able to track my finger to perform EOM testing. She stared straight ahead. She was not able to accurately tell me the color of my gloved hand in front of her face. pupil are round and equal bilaterally, normal conjunctivae, no scleral icterus ENT: external ear and nose normal, MMM NECK: trachea midline RESPIRATORY: clear to auscultation bilaterally, no crackles, rales or wheezes, normal respiratory effort CARDIOVASCULAR: regular rate and rhythm, S1 and 2 heard without murmurs, gallops or rubs, no JVD, no peripheral edema GASTROINTESTINAL: soft, nontender, nondistended, no guarding MUSCULOSKELETAL: strength decreased on the right side compared to left. She is also appears to have some hemineglect on that side to some extent, left hand metal molder intact. Generalized weakness throughout, currently unable to get up and walk SKIN: warm and dry NEUROLOGIC: CN 2-12 grossly intact, no sensory deficit, normal cognition, normal speech, no tremor PSYCHIATRIC: alert cooperative and oriented to person, place and time. Results & Data Results & Data ([facility]) Vital Signs (Past 12 Hours) Vital Signs Temp Pulse Resp BP Pulse Ox 08/27/20 15:30 37 C 85 20 184/83 H 100 08/27/20 08:33 36.8 C 75 19 111/75 97 Laboratory Results Short CBC 08/26/20 Range/Units 21:45 WBC 5.90 (4.8-10.8) K/uL Hgb 11.0 L (12.0-16.0) g/dL Hct 35.4 L (37-47) % Plt Count 248 (130-400) K/uL BMP 08/26/20 21:45 Sodium 141 Potassium 3.5 Chloride 111 H Carbon Dioxide 26 BUN 26 H Creatinine 0.76 Glucose 86 Calcium 8.4 L Cardiac Enzymes 08/26/20 08/27/20 Range/Units 21:45 01:55 Troponin I 0.181 H* 0.191 H* (0-0.045) ng/ml Liver Function 08/26/20 Range/Units 21:45 Total Bilirubin 0.2 (0.2-1) mg/dl AST 27 (15-37) U/L ALT 15 (12-78) U/L Alkaline Phosphatase 84 (45-117) U/L Albumin 2.9 L (3.4-5.0) gm/dl Urine 08/27/20 Range/Units 02:30 Urine Color Yellow Urine Appearance Cloudy A (Clear) Urine pH 5.0 (4.5-7.5) Ur Specific [place] > 1.045 H (1.000-1.030) Urine Protein Negative (Negative) Urine Glucose (UA) Negative (Negative) Medications Administered Current Inpatient Medications Acetaminophen (Acetaminophen 325 Mg Tab) 650 mg PO Q4H PRN PRN Reason: Pain or Fever Stop: 09/26/20 05:31 Aspirin (Aspirin 81 Mg Ectab) 81 mg PO [facility] Stop: 09/26/20 08:59 Last Admin: 08/27/20 11:17 Dose: 81 mg Documented by: Atorvastatin Calcium (Atorvastatin 40 Mg Tab) 40 mg PO [facility] Stop: 09/26/20 08:59 Last Admin: 08/27/20 11:18 Dose: 40 mg Documented by: Enoxaparin Sodium (Enoxaparin Inj 40 Mg/0.4 Ml Syr) 40 mg SQ [facility] Stop: 09/26/20 20:59 Potassium Chloride 40 meq/ (Lactated Ringer's) 1,020 mls @ 75 mls/hr IV .[id number] ONE Stop: 08/27/20 19:35 Last Admin: 08/27/20 06:11 Dose: 75 mls/hr Documented by: Promethazine HCl 6.25 mg/ (Sodium Chloride) 50.25 mls @ 201 mls/hr IV Q6H PRN PRN Reason: Nausea And Vomiting Stop: 09/26/20 05:31 Cefepime HCl 2,000 mg/ Syringe 20 mls @ 5 mls/min IV Q8H [facility] Stop: 09/06/20 11:59 Last Admin: 08/27/20 11:16 Dose: 5 mls/min Documented by: Miscellaneous Information (Cefepime Consult Active) 1 ea N/A UD PRN PRN Reason: Consult Stop: 09/26/20 05:31 Miscellaneous Information (Pharmacist Discharge Med Rec Consult) 1 ea N/A UD PRN PRN Reason: Consult Stop: 09/26/20 05:31 Mycophenolate Mofetil (Mycophenolate Mofetil 250 Mg Cap) 1,000 mg PO BID [facility] Stop: 09/26/20 08:59 Last Admin: 08/27/20 11:16 Dose: 1,000 mg Documented by: Pantoprazole Sodium (Pantoprazole 40 Mg Tab) 40 mg PO BID [facility] Stop: 09/26/20 08:59 Last Admin: 08/27/20 11:18 Dose: 40 mg Documented by:
[2020-08-27] MEDS: ENOXAPARIN INJ 40 MG/0.4 ML SYR SQ SCH (20:15)
[2020-08-28] MEDS: CEFEPIME 2,000 MG in SYRINGE 0 ML IV SCH (04:10)
--- NOTE | 2020-08-28 07:24 | Communication Note ---
Date of Service: August 28, 2020 Kizzy tran called at 7:20 AM. As per RN, patient requested to go to the bathroom. Subsequent right hand jerking followed by convulsive activity. Patient subsequently unresponsive and incontinent of urine as per RN. Patient gazing to the right. BSG 90s as per RN SBP 220s as per RN AP New onset seizures Rule out recurrent CVA given preferential gaze to the right Stroke alert Stat CT head Seizure precautions, Ativan as needed, EEG Change current Cefepime to Ceftriaxone for patient's E. coli UTI given Cefepime's association with seizures. Hold antiplatelet Rx, anticoagulation until ICH ruled out by CT head. Will relay to AM provider.
--- NOTE | 2020-08-28 07:25 | Neurology Progress Note ---
Date of Service August 28, 2020 Assessment & Plan (1) Seizure: A 70-year-old woman admitted for new onset aphasia and right hand weakness. Upon admission found to have a urinary tract infection with urine cultures positive for E. coli. CT head imaging suggestive of multifocal embolic appearing infarct in the right MCA distribution. MRI of the brain was not able to be completed as patient refused. Repeat CT head noncontrast shows no acute changes. CTA of the head and neck showed significant atherosclerosis involving the right brachiocephalic artery. Vascular surgery has been probably consulted. Appreciate their input. CTA of the chest is pending. Patient probably started on dual antiplatelet therapy including aspirin 81 mg daily Plavix 75 mg daily for secondary stroke prevention. She has no known evidence of paroxysmal atrial fibrillation at this point. Recommend to continue telemetry. However though the patient sustained a witnessed seizure-like event this morning by staff. A stroke alert was prompted. The telestroke provider at [facility] agreed that this was likely a seizure. Patient was loaded with Keppra 1000 mg. Unclear if this was a provoked seizure secondary to the urinary tract infection versus a focal onset seizure due to her presumed subacute stroke. Recommend to continue Keppra 500 mg twice daily for maintenance. Will defer to the primary care team for treatment of her urinary tract infection. Neurology will continue to follow (2) UTI (urinary tract infection): (3) Aortic arch atherosclerosis: (4) Acute CVA (cerebrovascular accident): Admission and Anticipated Discharge Date Admission Date: August 27, 2020 Subjective Patient was seen and examined. This afternoon patient was very lethargic and aroused to external stimuli but quickly fell back to sleep. Sitter is at bedside. Patient currently nonverbal. Patient not following commands. Notified this morning that the patient had a witnessed seizure-like event. Patient was going to the bathroom but had focal head turning to the right and was witnessed to have a seizure. Patient agitated afterwards. A code stroke was called. She was unable to get her MRI of the brain yesterday due to patient refusal. Repeat CT head noncontrast was performed this morning. Physical Exam Physical Exam: Patient appears acutely ill. She is very lethargic and quickly falls back to sleep after being aroused. She is nonverbal. She is moving all 4 extremities. She is reduced tone in the right hand as well as not moving the right hand. No tremor or myoclonic jerks. Face is symmetric. She is nonverbal. Sensation is intact to light touch. Results & Data ([facility]) Vital Signs (Past 12 Hours) Vital Signs Temp Pulse Pulse Pulse Resp BP Pulse Ox 08/28/20 04:22 36.6 C 83 18 141/99 H 99 08/28/20 01:09 88 08/27/20 23:56 36.8 C 60 18 167/75 H 95 08/27/20 19:39 36 C L 89 18 164/84 H 99
[2020-08-28 07:29] LABS: Basophils # (auto) 0.01 K/uL (0-0.2); Basophils % (auto) 0.3 %; Eosinophils # (auto) 0.09 K/uL (0-0.5); Eosinophils % (auto) 2.6 %; Hematocrit (blood only) 37.7 % (37-47); Hemoglobin 12.1 g/dL (12.0-16.0); Immature Granulocytes # (auto) 0.01 K/uL (0.00-0.02); Immature Granulocytes % (auto) 0.3 %; Lymphocytes # (auto) 0.69 K/uL (1.2-3.4); Lymphocytes % (auto) 19.8 %; Mean Corpuscular Hemoglobin 26.8 pg (25-34); Mean Corpuscular Hgb Conc 32.1 g/dL (32-36); Mean Corpuscular Volume 83.6 fL (80-100); Mean Platelet Volume 10.1 fL (7.4-10.4); Monocytes # (auto) 0.47 K/uL (0.11-0.59); Monocytes % (auto) 13.5 %; Neutrophils # (auto) 2.21 K/uL (1.4-6.5); Neutrophils % (auto) 63.5 %; Platelet Count 230 K/uL (130-400); RDW Coefficient of Variation 14.6 % (11.5-14.5); RDW Standard Deviation 44.8 fL (36.4-46.3); Red Blood Count 4.51 M/uL (4.2-5.4); Reticulocyte % 0.8 % (0.5-2.0); Reticulocytes # 0.04 10^6/uL (0.02-0.10); White Blood Count 3.48 K/uL (4.8-10.8)
[2020-08-28] MEDS ORDERED: LORazepam 1 MG/2 ML VIAL IV PRN (07:41)
[2020-08-28 07:47] LABS: RBC Morphology Unremarkable
--- NOTE | 2020-08-28 08:00 | CT Scan Report ---
CT SCAN OF THE BRAIN WITHOUT IV CONTRAST CLINICAL HISTORY: Strokelike symptoms. COMPARISON STUDY: CT of the brain dated 08/26/2020. MRI of the brain dated 12/22/2011. TECHNIQUE: Unenhanced axial CT scan of the brain is performed from the vertex to the skull base. A do se lowering technique was utilized adhering to the principles of ALARA. The patient was scanned twice due to motion artifact. The examination is motion compromised. CT DOSE: 1216.25 mGy.cm FINDINGS: Brain parenchyma: The small chronic infarct is again seen in the high right frontal lobe. Additional foci of encephalomalacia in the right frontal lobe and the right parieto-occipital lobe may also be c hronic. There are age-related involutional changes noting mild subcortical and periventricular micro angiopathic change. There is no hemorrhage or mass effect. No extra-axial fluid collection is seen. Ventricles, sulci, cisterns: Prominent secondary to involutional change. Intracranial vasculature: There is atherosclerotic calcification of the cavernous carotid arteries. Calvarium: Unremarkable. Sinuses and mastoids: The paranasal sinuses are clear. The mastoid air cells are well pneumatized. Orbits: The bony orbits are grossly intact. IMPRESSION: 1. Significantly motion compromised examination. 2. There is no hemorrhage or mass effect. 3. There are small right-sided cortical infarcts as above. These were questioned subacute yesterday b ut appear more chronic on today's examination. ACT 112: Negative or not required by law. Electronically signed by: Ziyad Estrella M.D. 08/28/2020 7:59 AM
[2020-08-28] MEDS ORDERED: levETIRAcetam 1,000 MG in 0.9 % SODIUM CHLORIDE 100 ML IV STA (08:06)
[2020-08-28] MEDS ORDERED: LORazepam 2 MG/4 ML VIAL IV PRN ×2 (08:19→08:33)
[2020-08-28 08:20] LABS: BUN Creatinine Ratio 23.7 (10-20); Calcium 8.8 mg/dl (8.5-10.1); Creatinine Clr Calc Pharmacy 73.3 ml/min; Est GFR (Non-African American) 85.4 ml/min
[2020-08-28] MEDS: MYCOPHENOLATE MOFETIL 250 MG CAP PO SCH ×2 (08:20→19:55)
[2020-08-28] MEDS: PANTOprazole 40 MG TAB PO SCH ×2 (08:20→19:55)
[2020-08-28] MEDS: ATORVASTATIN 40 MG TAB PO SCH (08:20)
[2020-08-28 08:22] LABS: Folate (Folic Acid) 10.7 ng/ml (>5.38)
[2020-08-28 08:26] LABS: Ferritin 37.9 ng/ml (8-388); Troponin I 0.239 ng/ml (0-0.045)
[2020-08-28] MEDS: cefTRIAXone SODIUM 1,000 MG in DEXTROSE 5% 50 ML IV SCH (08:39)
--- NOTE | 2020-08-28 08:42 | Hospitalist Progress Note ---
Date of Service August 28, 2020 Assessment & Plan (1) Seizure: New seizure like activity today, possibly related to cerebrovascular disease. Load with Keppra.. Neuro aware. EEG ordered. Ativan PRN seizure. Adjust AEDs as desired. Repeat head CT revealed the infarcts from admission appeared more chronic, however, clinically still had very acute stroke like changes. If more calm may consider MRI brain later today (2) Acute metabolic encephalopathy: in setting of CVA and UTI. Cont treatment plan below and follow clinical picture. (3) Acute CVA (cerebrovascular accident): aphasia still present, right sided weakness. Permissive hypertension for 48 hours to allow increased cerebral perfusion pressure. DAPT recommended with high intensity statin therapy (Lipitor). Rehab recommended. Currently NPO so can give rectal aspirin. Limited echo, cont telemetry. Otherwise plan as above. (4) UTI (urinary tract infection): Cefepime switched to ceftriaxone overnight, however, both have very little risk of inducing seizures per pharmacist. Cont ceftriaxone while NPO. 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 Vascular consulted. CT chest with contrast ordered, however, patient declined. Cont DAPT. Will attempt CT chest again later today. (6) Elevated troponin: 2/2 stroke/seizure (7) Dermatomyositis: cont CellCept per outpatient regimen. (8) Anemia: uncertain cause. iron panel normal and B12/folate normal. Possibly related to chronic inflammation in setting of dermatomyositis. Cont to monitor. (9) DVT prophylaxis: Lovenox Full Code Dispo-cont telemetry monitoring. Rehab recommended. Updated sister by phone this morning. Attempted to contact daughter but no answer [facility] and Anticipated Discharge Date Admission Date: August 27, 2020 Subjective 70 yo F admitted for right sided weakness, confusion and difficulty speaking. CT head without contrast revealed right frontal and parietal lucencies consistent with acute to subacute strokes. She was unable to tolerate an MRI yesterday. She underwent a CTA of the head and neck overnight, revealing a significant stenosis of the right brachiocephalic artery. Vascular surgery was consulted and a CT chest with contrast was later ordered but also refused by the patient. An echo was performed revealing an EF 55-60%, Grade II diastolic dysfunction. She refused microcavitation procedure. PT evaluated her and recommended rehab as a transition to home. She had persistent aphasia and right-sided weakness on exam yesterday. This morning, the nurse was helping her to the bathroom and noticed her right arm appearing to shake/convulse as if having a seizure. She became incontinent of urine and was helped back to bed, unresponsive to further stimulus. A code purple was called and then a stroke alert as she had eye deviation to the right and was less responsive. She was sent for head CT which revealed a high right frontal lobe infarct, additional foci of the right frontal lobe and the right parieto-occipital lobe-all which now appear more chronic. No hemorrhage, mass effect or extra-axial fluid collection was seen. In the ICU, I spoke with Dr. Tucker from [facility] who felt this sounded more like a post-ictal state. TPA would not be advised given the duration since onset of symptoms at admission. New symptoms not concerning for new stroke and this correlates with imaging findings. The patient was agitated and awake but unable to follow instructions. Vitals: 201/97, HR 116 BPM, 98% on room air. NIHSS 11. Contacted Dr. Lux by phone and we discussed starting Keppra for presumed seizure activity. AM labs reviewed and lytes WNL. Orders placed for this and EEG stat. Transfer to PCU. Updated Jolly McdonnellXothgg-[id number] phone. Review of Systems Review of Systems: Unobtainable due to cognitive status Physical Exam Physical Exam: CONSTITUTIONAL: WNWD, vitals as above, generally thrashing around the bed, appears uncomfortable and in distress. Cannot follow instructions. Unintelligible moaning, fragmented sounds, no clear words spoken. EYES: PERRL, unable to perform EOM but no lateral gaze. Normal conjunctivae, no scleral icterus ENT: external ear and nose normal, MMM NECK: trachea midline RESPIRATORY: clear to auscultation bilaterally, no crackles, rales or wheezes, normal respiratory effort CARDIOVASCULAR: tachy rate and regular rhythm, S1 and 2 heard without murmurs, gallops or rubs, no JVD, no peripheral edema GASTROINTESTINAL: soft, nontender, nondistended, no guarding MUSCULOSKELETAL: cannot assess easily as patient is thrashing. She is able to roll herself in bed from side to side and push examiner away with both sides. Cannot accurately see if ride sided weakness is persisting. SKIN: warm and dry NEUROLOGIC: facial symmetry, cannot assess sensation although she responds to touch, speech as above, no convulsion activity, altered PSYCHIATRIC: alert , uncooperative Results & Data Results & Data ([facility]) Vital Signs (Past 12 Hours) Vital Signs Temp Pulse Pulse Pulse Resp BP Pulse Ox 08/28/20 04:22 36.6 C 83 18 141/99 H 99 08/28/20 01:09 88 08/27/20 23:56 36.8 C 60 18 167/75 H 95 Laboratory Results Short CBC 08/28/20 Range/Units 06:55 WBC 3.48 L (4.8-10.8) K/uL Hgb 12.1 (12.0-16.0) g/dL Hct 37.7 (37-47) % Plt Count 230 (130-400) K/uL BMP 08/28/20 06:55 Sodium 136 Potassium 4.0 Chloride 106 Carbon Dioxide 24 BUN 17 Creatinine 0.72 Glucose 79 Calcium 8.8 Cardiac Enzymes 08/28/20 Range/Units 06:55 Troponin I 0.239 H* (0-0.045) ng/ml Diagnostic Findings [facility], [id number] CT Scan Report Patient: DESHAUN MUELLER Date: 08/27/20MR#: [id number]: [address] [facility] ID:[id number]: [facility] Zip: [place] [id number]: [id number]: 2WSex: FRoom/Bed: [address] Phy: Mercedes Sethi DODiagnosis: CVAPri Phy: Ryan Hatfield MDService Date: 08/28/20Fa Phy:Interpreting Phy: Ziyad Estrella [facility] Phy: Sp Trujillo MD Ordering Phy: Sp Trujillo MD cc: ~ CT SCAN OF THE BRAIN WITHOUT IV CONTRAST CLINICAL HISTORY: Strokelike symptoms. COMPARISON STUDY: CT of the brain dated 08/26/2020. MRI of the brain dated 12/22/2011. TECHNIQUE: Unenhanced axial CT scan of the brain is performed from the vertex to the skull base. A dose lowering technique was utilized adhering to the principles of ALARA. The patient was scanned twice due to motion artifact. The examination is motion compromised. CT DOSE: 1216.25 mGy.cm FINDINGS: Brain parenchyma: The small chronic infarct is again seen in the high right frontal lobe. Additional foci of encephalomalacia in the right frontal lobe and the right parieto-occipital lobe may also be chronic. There are age-related involutional changes noting mild subcortical and periventricular microangiopathic change. There is no hemorrhage or mass effect. No extra-axial fluid collection is seen. Ventricles, sulci, cisterns: Prominent secondary to involutional change. Intracranial vasculature: There is atherosclerotic calcification of the cavernous carotid arteries. Calvarium: Unremarkable. Sinuses and mastoids: The paranasal sinuses are clear. The mastoid air cells are well pneumatized. Orbits: The bony orbits are grossly intact. IMPRESSION: 1. Significantly motion compromised examination. 2. There is no hemorrhage or mass effect. 3. There are small right-sided cortical infarcts as above. These were questioned subacute yesterday but appear more chronic on today's examination. ACT 112: Negative or not required by law. Electronically signed by: Ziyad Estrella M.D. 08/28/2020 7:59 AM Dictated: 08/28/202Transcribed: 08/28/20 0752 Medications Administered Current Inpatient Medications Acetaminophen (Acetaminophen 325 Mg Tab) 650 mg PO Q4H PRN PRN Reason: Pain or Fever Stop: 09/26/20 05:31 Aspirin (Aspirin 81 Mg Ectab) [facility] Stop: 09/26/20 08:59 Last Admin: 08/27/20 11:17 Dose: 81 mg Documented by: Atorvastatin Calcium (Atorvastatin 40 Mg Tab) 40 mg PO QAM [facility] Stop: 09/26/20 08:59 Last Admin: 08/28/20 08:20 Dose: Not Given Documented by: Enoxaparin Sodium (Enoxaparin Inj 40 Mg/0.4 Ml Syr) 40 mg SQ HS [facility] Stop: 09/26/20 20:59 Last Admin: 08/27/20 20:15 Dose: 40 mg Documented by: Promethazine HCl 6.25 mg/ (Sodium Chloride) 50.25 mls @ 201 mls/hr IV Q6H PRN PRN Reason: Nausea And Vomiting Stop: 09/26/20 05:31 Ceftriaxone Sodium 1,000 mg/ (Dextrose) 60 mls @ 100 mls/hr IV DAILY JONATHAN; Protocol Stop: 09/07/20 08:59 Last Admin: 08/28/20 08:39 Dose: 100 mls/hr Documented by: Lorazepam (Ativan) 2 mg in 4 mls @ 4 mls/min IV Q5M PRN PRN Reason: seizure Stop: 09/27/20 08:18 Miscellaneous Information (Pharmacist Discharge Med Rec Consult) 1 ea N/A UD PRN PRN Reason: Consult Stop: 09/26/20 05:31 Mycophenolate Mofetil (Mycophenolate Mofetil 250 Mg Cap) 1,000 mg PO BID JONATHAN Stop: 09/26/20 08:59 Last Admin: 08/28/20 08:20 Dose: Not Given Documented by: Pantoprazole Sodium (Pantoprazole 40 Mg Tab) 40 mg PO BID JONATHAN Stop: 09/26/20 08:59 Last Admin: 08/28/20 08:20 Dose: Not Given Documented by:
[2020-08-28] MEDS ORDERED: CLOPIDOGREL BISULFATE 75 MG TAB PO SCH (09:00)
--- NOTE | 2020-08-28 11:35 | Electroencephalogram ---
EEG Procedure Note Date of Service August 28, 2020 Start / End Times Start Time: 09:15 End Time: 09:35 Referring Physician Mercedes Sethi DO History A 70-year-old female admitted with altered mentation and found to have suspected right MCA ischemic stroke as well as a possible urinary tract infection. Patient noted to have a seizure this morning. EEG performed for ration of epileptiform activity. Home Medication List Medication Instructions Recorded Confirmed Type doxepin 50 - 150 mg PO HS PRN 12/03/18 08/26/20 History gabapentin 100 mg PO TID 12/03/18 08/26/20 History lisinopril 5 mg PO DAILY 12/03/18 08/26/20 History mycophenolate mofetil 1,000 mg PO BID 12/03/18 08/26/20 History omeprazole 20 mg PO BID 12/03/18 08/26/20 History cholecalciferol (vitamin D3) 25 25 mcg PO DAILY 03/27/19 08/26/20 History mcg (1,000 unit) tablet Inpatient Medication List Aspirin (Aspirin 81 Mg Ectab) 81 mg PO QAM [facility] Stop: 09/26/20 08:59 Last Admin: 08/27/20 11:17 Dose: 81 mg Documented by: [id number] Atorvastatin Calcium (Atorvastatin 40 Mg Tab) 40 mg PO QAM [facility] Stop: 09/26/20 08:59 Last Admin: 08/28/20 08:20 Dose: Not Given Documented by: [id number] Admin: 08/27/20 11:18 Dose: 40 mg Documented by: [id number] Enoxaparin Sodium (Enoxaparin Inj 40 Mg/0.4 Ml Syr) 40 mg SQ HS [facility] Stop: 09/26/20 20:59 Last Admin: 08/27/20 20:15 Dose: 40 mg Documented by: [id number] Ceftriaxone Sodium 1,000 mg/ (Dextrose) 60 mls @ 100 mls/hr IV DAILY [facility]; Protocol Stop: 09/07/20 08:59 Last Infusion: 08/28/20 09:16 Dose: 0 mls/hr Documented by: [id number] Admin: 08/28/20 08:39 Dose: 100 mls/hr Documented by: [id number] Mycophenolate Mofetil (Mycophenolate Mofetil 250 Mg Cap) 1,000 mg PO BID [facility] Stop: 09/26/20 08:59 Last Admin: 08/28/20 08:20 Dose: Not Given Documented by: [id number] Admin: 08/27/20 20:10 Dose: 1,000 mg Documented by: [id number] Admin: 08/27/20 11:16 Dose: 1,000 mg Documented by: [id number] Pantoprazole Sodium (Pantoprazole 40 Mg Tab) 40 mg PO BID JONATHAN Stop: 09/26/20 08:59 Last Admin: 08/28/20 08:20 Dose: Not Given Documented by: [id number] Admin: 08/27/20 20:10 Dose: 40 mg Documented by: [id number] Admin: 08/27/20 11:18 Dose: 40 mg Documented by: [id number] Discontinued Medications Aspirin (Aspirin Chew 324 Mg) 324 mg PO NOW STA Stop: 08/26/20 22:54 Last Admin: 08/26/20 23:00 Dose: Not Given Documented by: [id number] Aspirin (Aspirin 300 Mg Supp) 300 mg IN ONE ONE Stop: 08/26/20 22:59 Last Admin: 08/26/20 23:06 Dose: 300 mg Documented by: [id number] Enoxaparin Sodium (Enoxaparin 80 Mg/0.8 Ml Syr) 70 mg 1 mg/kg (75 mg) SQ ONE STA Stop: 08/26/20 22:58 Last Admin: 08/26/20 23:06 Dose: 70 mg Documented by: [id number] Sodium Chloride (Nss 1000ml) 1,000 mls @ 50 mls/hr IV .Q20H JONATHAN Stop: 09/25/20 21:29 Last Infusion: 08/27/20 06:54 Dose: 0 mls/hr Documented by: [id number] Admin: 08/26/20 22:20 Dose: 50 mls/hr Documented by: [id number] Cefepime HCl (Maxipime) 2,000 mg in 20 mls @ 5 mls/min IV NOW STA; Protocol Stop: 08/27/20 03:26 Last Admin: 08/27/20 03:39 Dose: 5 mls/min Documented by: [id number] Potassium Chloride 40 meq/ (Lactated Ringer's) 1,020 mls @ 75 mls/hr IV .[id number] ONE Stop: 08/27/20 19:35 Last Infusion: 08/28/20 02:22 Dose: 0 mls/hr Documented by: [id number] Admin: 08/27/20 06:11 Dose: 75 mls/hr Documented by: [id number] Cefepime HCl 2,000 mg/ Syringe 20 mls @ 5 mls/min IV Q8H [facility] Stop: 09/06/20 11:59 Last Admin: 08/28/20 04:10 Dose: 5 mls/min Documented by: [id number] Admin: 08/27/20 20:04 Dose: 5 mls/min Documented by: [id number] Admin: 08/27/20 11:16 Dose: 5 mls/min Documented by: [id number] Levetiracetam 1,000 mg/ Sodium (Chloride) 110 mls @ 440 mls/hr IV NOW STA Stop: 08/28/20 08:20 Last Infusion: 08/28/20 08:38 Dose: 0 mls/hr Documented by: [id number] Admin: 08/28/20 08:21 Dose: 440 mls/hr Documented by: [id number] Ioversol (Optiray 320 125ml) 125 ml IV ONCE ONE Stop: 08/26/20 22:05 Last Admin: 08/26/20 22:04 Dose: 120 ml Documented by: [id number] Lisinopril (Lisinopril 2.5 Mg Tab) 2.5 mg PO QAM [facility] Stop: 09/26/20 06:39 Last Admin: 08/27/20 08:07 Dose: Not Given Documented by: [id number] Description This is a 21 electrode EEG with a single channel dedicated to limited EKG. The electrodes were placed in accordance with the International 10-20 system. REPORT: At the onset of the EEG the patient is awake. The background is symmetric. The posterior dominant rhythm is not well seen. There is a loss of the anterior to posterior gradient. Background predominantly consist of generalized 3 to 4 Hz theta activity with some intermittent faster frequencies. No stage II sleep transients are seen. Photic stimulation does not induce any abnormalities. IMPRESSION: This is an abnormal routine EEG in a patient with altered mentation due to generalized slowing suggestive of a nonspecific encephalopathy. There is no evidence of focal slowing or epileptiform activity. No electrographic seizures are recorded.
[2020-08-28] MEDS ORDERED: ASPIRIN 300 MG SUPP PR ONE (13:25)
--- NOTE | 2020-08-28 15:27 | CT Scan Report ---
CT ANGIOGRAM OF THE CHEST COMBO CLINICAL HISTORY: Strokelike symptoms. Innominate artery stenosis suggested on CT angiogram of the ne ck. COMPARISON STUDY: Chest CT scans dated 03/27/2019 and 04/22/2018. TECHNIQUE: Before and following the IV administration of 120 cc of Optiray 320, CT angiogram of the c hest was performed from the thoracic inlet to the upper abdomen utilizing the dissection protocol. Im ages are reviewed in the axial, sagittal, and coronal planes. 3-D MIPS images are created and assesse d. IV contrast was administered without complication. A dose lowering technique was utilized adherin g to the principles of ALARA. The examination is degraded by lack of patient cooperation. The examina tion is degraded by streak artifact from the arms which could not be elevated above the chest as well as by motion. CT DOSE: 710.49 mGy.cm FINDINGS: Thyroid: Imaged portions of the thyroid gland are normal in size and attenuation. Thoracic aorta: No intramural hematoma is seen on the unenhanced series. There is advanced atheroscle rotic calcification of the thoracic aorta. There is mild aneurysmal dilatation of the ascending thora cic aorta which measures up to 4.0 cm in diameter. The remainder of the thoracic aorta is normal in c aliber and the arch demonstrates standard 3-vessel anatomy. No dissection is seen. There is high-grad e stenosis with near complete occlusion and only trace flow identified within the innominate artery b elow the thoracic outlet, best seen on axial image #70. There is only minimal stenosis at the origin of the left common carotid artery. Pulmonary vasculature: The pulmonary trunk is normal in caliber. There are no filling defects within the main, lobar, or very proximal segmental pulmonary arteries to suggest pulmonary embolus. The segm ental and subsegmental branches are not well assessed due to motion artifact. Heart: The heart is mildly enlarged and without pericardial effusion. The coronary arteries are dense ly calcified. Lungs and pleural spaces: Evaluation of the lung parenchyma is significantly degraded by motion artif act. Exam is change is noted, with evidence of superimposed chronic additional lung disease. Subpleur al reticulation and mild groundglass change is seen throughout both lungs, greatest at the lung bases . Mild traction bronchiectasis is noted in the lower lobes. No honeycombing is seen. Dependent fibrot ic change at the lung bases is similar to previous. There is no evidence of superimposed airspace con solidation or pleural effusion. Mediastinum: There is no mediastinal lymphadenopathy. Kristina: Clear. Axillae: There is no axillary lymphadenopathy. Upper abdomen: There is a small hiatal hernia. Partially imaged upper abdominal viscera is otherwise grossly unremarkable. Skeletal structures: The skeletal structures are osteopenic. Degenerative change is noted in the shou lders and thoracic spine. No lytic or blastic bony lesions are seen. IMPRESSION: 1. Significantly streak and motion compromised examination. 2. Findings of emphysema and superimposed chronic interstitial lung disease are similar to previous. 3. There is mild aneurysmal dilatation of the ascending thoracic aorta which measures up to 4.0 cm. 4. There is high-grade stenosis with near complete occlusion and only trace flow identified within th e innominate artery below the thoracic outlet. Note that this may place the patient at risk for steal phenomenon. Vascular surgical assessment is advised. 5. There is no evidence of superimposed airspace consolidation or pleural effusion. 6. Cardiomegaly. 7. There is no evidence of central pulmonary embolus within the main, lobar, or very proximal segment al pulmonary arteries. The peripheral vessels are not well evaluated due to motion artifact. 8. Additional findings as above. ACT 112: Negative or not required by law. Electronically signed by: Ziyad Estrella M.D. 08/28/2020 3:26 PM
[2020-08-28] MEDS: levETIRAcetam 500 MG in 0.9 % SODIUM CHLORIDE 100 ML IV SCH (20:41)
[2020-08-28] MEDS ORDERED: D5W AND NSS 1,000 ML IV SCH (23:15)
[2020-08-29] MEDS: cefTRIAXone SODIUM 1,000 MG in DEXTROSE 5% 50 ML IV SCH (08:37)
[2020-08-29] MEDS: levETIRAcetam 500 MG in 0.9 % SODIUM CHLORIDE 100 ML IV SCH (08:37)
[2020-08-29] MEDS ORDERED: ASPIRIN 300 MG SUPP PR SCH (09:00)
[2020-08-29] MEDS: MYCOPHENOLATE MOFETIL 250 MG CAP PO SCH ×2 (09:09→19:51)
[2020-08-29] MEDS: PANTOprazole 40 MG TAB PO SCH ×2 (09:10→19:51)
[2020-08-29] MEDS: ATORVASTATIN 40 MG TAB PO SCH (09:10)
[2020-08-29] MEDS: ASPIRIN 81 MG ECTAB PO SCH (09:10)
[2020-08-29] MEDS ORDERED: ENOXAPARIN INJ 40 MG/0.4 ML SYR SQ ONE (10:30)
[2020-08-29] MEDS: lisinopril 10 MG TAB PO SCH (11:22)
[2020-08-29] MEDS: CIPROFLOXACIN 500 MG TAB PO SCH ×2 (11:22→23:21)
[2020-08-29] MEDS: CHOLECALCIFEROL 1,000 UNITS 25 MCG TAB PO SCH (11:23)
[2020-08-29] MEDS: GABAPENTIN 100 MG CAP PO SCH ×2 (15:26→19:51)
--- NOTE | 2020-08-29 15:50 | Hospitalist Progress Note ---
Date of Service August 29, 2020 Assessment & Plan (1) Seizure: New seizure like activity this admission, possibly related to cerebrovascular disease. Keppra started and no further events overnight. Cont this now. Neuro following. EEG performed shortly after seizure event occurred revealed no evidence of focal slowing or epileptiform activity. Ativan PRN. Repeat head CT revealed the infarcts from admission appeared more chronic, however, clinically still had very acute stroke like changes on the right that are not explained. She adamantly declines MRI for few dyas in a row now. (2) Acute metabolic encephalopathy: Improving with treatment for CVA, seizure and UTI. Cont treatment plan below and follow clinical picture. (3) Acute CVA (cerebrovascular accident): aphasia still present, right sided weakness. DAPT recommended with high intensity statin therapy (Lipitor). Rehab recommended. Limited echo, cont telemetry. Otherwise plan as above. (4) UTI (urinary tract infection): Cefepime switched to ceftriaxone overnight, however, both have very little risk of inducing seizures per pharmacist. Cont ceftriaxone for now. 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 Vascular consulted. CT chest with contrast revealed same stenosis on the right with only minimal left common carotid artery stenosis. No intervention per vascular at this time. (6) Elevated troponin: 2/2 stroke/seizure (7) Dermatomyositis: cont CellCept per outpatient regimen. (8) Anemia: uncertain cause. iron panel normal and B12/folate normal. Possibly related to chronic inflammation in setting of dermatomyositis. Cont to monitor. (9) DVT prophylaxis: Lovenox Full Code Dispo-cont telemetry monitoring. Rehab recommended. [facility] Seth[facility] and Anticipated Discharge Date Admission Date: August 27, 2020 Subjective 70 yo F admitted for right sided weakness, confusion and difficulty speaking. CT head without contrast revealed right frontal and parietal lucencies consistent with acute to subacute strokes. She was unable to tolerate an MRI yesterday. She underwent a CTA of the head and neck overnight, revealing a significant stenosis of the right brachiocephalic artery. Vascular surgery was consulted and a CT chest with contrast was later ordered but also refused by the patient. An echo was performed revealing an EF 55-60%, Grade II diastolic dysfunction. She refused microcavitation procedure. PT evaluated her and recommended rehab as a transition to home. She had persistent aphasia and right-sided weakness on exam. On 08/28 around 0700, the nurse was helping her to the bathroom and noticed her right arm appearing to shake/convulse as if having a seizure. She became incontinent of urine and was helped back to bed, unresponsive to further stimulus. A code purple was called and then a stroke alert as she had eye deviation to the right and was less responsive. She was sent for head CT which revealed a high right frontal lobe infarct, additional foci of the right frontal lobe and the right parieto-occipital lobe-all which now appear more chronic. No hemorrhage, mass effect or extra-axial fluid collection was seen. Dr. Tucker from [facility] felt this sounded more like a post-ictal state. TPA would not be advised given the duration since onset of symptoms at admission. New symptoms not concerning for new stroke and this correlates with imaging findings. The patient was agitated and awake but unable to follow instructions. Vitals: 201/97, HR 116 BPM, 98% on room air. NIHSS 11. She was loaded with Keppra and continued to remain disoriented in PCU. Today she is much improved. She is able to communicate purposefully, however, still has significant deficits including inability to track with her eyes (cannot assess EOM), RUE weakness, and disorientation. She still has some word- finding difficulty that is apparent. ROS is limited as a result of these issues. Unfortnately, she is a right-handed patient. Nurses are assisting her with ADLs. Review of Systems Review of Systems: Other Limited 2/2 neuro deficits from recent stroke. Physical Exam Physical Exam: CONSTITUTIONAL: WNWD, vitals as above, generally NAD. EYES: PERRL, unable to perform EOM (asked to follow hand and eyes dont track) but no lateral gaze. Normal conjunctivae, no scleral icterus ENT: external ear and nose normal, MMM NECK: trachea midline RESPIRATORY: clear to auscultation bilaterally, no crackles, rales or wheezes, normal respiratory effort CARDIOVASCULAR: reg rate and regular rhythm, S1 and 2 heard without murmurs, gallops or rubs, no JVD, no peripheral edema GASTROINTESTINAL: soft, nontender, nondistended, no guarding MUSCULOSKELETAL: RUE weak and limited movement, RLE appears 5/5 today, LLE and LUE intact and normal. Gait not assessed. SKIN: warm and dry NEUROLOGIC: facial symmetry, some expressive aphasia persists. PSYCHIATRIC: alert , oriented to person and place but not time. Uncertain about recent events. Results & Data Results & Data ([facility]) Vital Signs (Past 12 Hours) Vital Signs Temp Pulse Pulse Resp BP Pulse Ox 08/29/20 15:49 36.4 C L 78 18 158/82 H 99 08/29/20 11:16 36.7 C 82 17 165/81 H 98 08/29/20 11:12 72 08/29/20 09:53 36.6 C 87 18 175/91 H 98 08/29/20 06:57 36.6 C 91 H 18 182/99 H 98 08/29/20 03:57 36.9 C 84 18 162/84 H 95 Medications Administered Current Inpatient Medications Acetaminophen (Acetaminophen 325 Mg Tab) 650 mg PO Q4H PRN PRN Reason: Pain or Fever Stop: 09/26/20 05:31 Aspirin (Aspirin 81 Mg Ectab) 81 mg PO QAM [facility] Stop: 09/26/20 08:59 Last Admin: 08/29/20 09:10 Dose: 81 mg Documented by: Atorvastatin Calcium (Atorvastatin 40 Mg Tab) 40 mg PO QAM [facility] Stop: 09/26/20 08:59 Last Admin: 08/29/20 09:10 Dose: 40 mg Documented by: Ciprofloxacin (Ciprofloxacin 500 Mg Tab) 500 mg PO Q12H [facility] Stop: 09/03/20 10:59 Last Admin: 08/29/20 11:22 Dose: 500 mg Documented by: Enoxaparin Sodium (Enoxaparin Inj 40 Mg/0.4 Ml Syr) 40 mg SQ HS [facility] Stop: 09/26/20 20:59 Last Admin: 08/27/20 20:15 Dose: 40 mg Documented by: Gabapentin (Gabapentin 100 Mg Cap) 100 mg PO TID [facility] Stop: 09/28/20 13:59 Last Admin: 08/29/20 15:26 Dose: Not Given Documented by: Lorazepam (Ativan) 2 mg in 4 mls @ 4 mls/min IV Q5M PRN PRN Reason: seizure Stop: 09/27/20 08:18 Levetiracetam (Levetiracetam 500 Mg Tab) 500 mg PO BID [facility] Stop: 09/28/20 20:59 Lisinopril (Lisinopril 10 Mg Tab) 10 mg PO QAM JONATHAN Stop: 09/28/20 10:59 Last Admin: 08/29/20 11:22 Dose: 10 mg Documented by: Miscellaneous Information (Pharmacist Discharge Med Rec Consult) 1 ea N/A UD PRN PRN Reason: Consult Stop: 09/26/20 05:31 Mycophenolate Mofetil (Mycophenolate Mofetil 250 Mg Cap) 1,000 mg PO BID JONATHAN Stop: 09/26/20 08:59 Last Admin: 08/29/20 09:09 Dose: 1,000 mg Documented by: Pantoprazole Sodium (Pantoprazole 40 Mg Tab) 40 mg PO BID JONATHAN Stop: 09/26/20 08:59 Last Admin: 08/29/20 09:10 Dose: 40 mg Documented by: Vitamin D (Cholecalciferol 1,000 Units 25 Mcg Tab) 1,000 units PO DAILY JONATHAN Stop: 09/28/20 10:59 Last Admin: 08/29/20 11:23 Dose: 1,000 units Documented by:
--- NOTE | 2020-08-29 17:11 | Neurology Progress Note ---
Date of Service August 29, 2020 Assessment & Plan (1) Seizure: (2) Acute CVA (cerebrovascular accident): Lisandra Castellanos is a pleasant 70-year-old woman with known dermatomyositis receiving IVIG therapy as an outpatient admitted with acute onset aphasia and found to have a urinary tract infection treated with IV antibiotics as well as a presumed embolic stroke possibly involving both hemispheres. CT head noncontrast x2 showed lucencies in the right frontal and posterior head regions involving the cortex suspicious for embolic strokes. Patient has refused MRI of the brain. Also found to have a severely stenotic or occluded right brachiocephalic artery. Vascular surgery has been consulted appreciate their input. Patient is now on dual antiplatelet therapy for secondary stroke prevention. She will need to continue this indefinitely for now. On examination today the patient remains aphasic as well as has very limited or no use of the right hand. It is believed that the patient suffered an embolic stroke in the left hemisphere which has been unable to be seen on CT head noncontrast. I did discuss these findings with the patient's youngest daughter and once again with the patient this afternoon. The family will continue to speak to the patient although she remains adamant about not obtaining an MRI. However overall I do believe the patient appears improved since yesterday. Of note she was seen witnessed to have a suspected symptomatic seizure which is not uncommonly seen after a stroke. She is now on Keppra 500 mg twice daily which will need to be continued indefinitely. For now continue PT OT and speech therapy. Admission and Anticipated Discharge Date Admission Date: August 27, 2020 Subjective Patient was seen and examined later this afternoon. Her youngest daughter is at bedside. Patient appears much improved since yesterday. She is awake and conversive. She denies any new complaints or concerns. She does remain sarcastic at times. Speech is currently not to baseline. Patient still continues to refuse MRI of the brain. Physical Exam Physical Exam: Patient is awake and alert. She does not appear in any distress. She is moving all 4 extremities antigravity. Face is symmetric tongue is midline eyes are midline extraocular muscles are intact. She continues to have a global aphasia both in the receptive and expressive forms. She has difficulty finding her words at times. Her speech is clear although nonfluent. She is moving both upper extremities against gravity although no movement in the right hand. She does have some neglect I believe of the right upper extremity. Results & Data ([facility]) Vital Signs (Past 12 Hours) Vital Signs Temp Pulse Pulse Resp BP Pulse Ox 08/29/20 15:49 36.4 C L 78 18 158/82 H 99 08/29/20 11:16 36.7 C 82 17 165/81 H 98 08/29/20 11:12 72 08/29/20 09:53 36.6 C 87 18 175/91 H 98 08/29/20 06:57 36.6 C 91 H 18 182/99 H 98
[2020-08-29] MEDS: ENOXAPARIN INJ 40 MG/0.4 ML SYR SQ SCH (19:51)
[2020-08-29] MEDS: levETIRAcetam 500 MG TAB PO SCH (19:51)
[2020-08-30] MEDS: ATORVASTATIN 40 MG TAB PO SCH (08:16)
[2020-08-30] MEDS: ASPIRIN 81 MG ECTAB PO SCH (08:16)
[2020-08-30] MEDS: GABAPENTIN 100 MG CAP PO SCH ×2 (08:16→13:50)
[2020-08-30] MEDS: levETIRAcetam 500 MG TAB PO SCH (08:16)
[2020-08-30] MEDS: PANTOprazole 40 MG TAB PO SCH (08:16)
[2020-08-30] MEDS: MYCOPHENOLATE MOFETIL 250 MG CAP PO SCH (08:16)
[2020-08-30] MEDS: lisinopril 10 MG TAB PO SCH (08:17)
[2020-08-30] MEDS: CHOLECALCIFEROL 1,000 UNITS 25 MCG TAB PO SCH (08:17)
[2020-08-30] MEDS: CIPROFLOXACIN 500 MG TAB PO SCH (10:35)
--- NOTE | 2020-08-30 15:16 | Discharge Summary ---
Date of Service August 30, 2020 Admission HPI Per Admitting Provider History obtained from patient and records. History limited from patient secondary to confusion. Medical history significant for hypertension, dermatomyositis (periodic outpatient IVIG infusion tx), COPD/ILD/pulmonary hypertension as per records, GERD, ongoing tobacco abuse. Last confinement 2018 for colitis. Patient unable to answer phone call from daughter last night due to right upper extremity weakness. Patient seemed confused and disoriented when daughter checked on patient at home. Speech somewhat slurred. Patient denies chest pain, S OB, abdominal pain, dysuria symptoms. Patient denies black/bloody st ools. Patient brought to the ER for evaluation. Patient given aspirin for possible stroke. Weight-based Lovenox administered at the ER for possible ACS. Medical History as above Surgical History : Cholecystectomy, BTL, carpal tunnel surgery, shoulder surgery, muscle biopsy Family History : Heart disease, bone cancer, melanoma Personal/Social history : Few cigarettes a day, occasional EtOH intake, retired store employee Admission Exam Per Admitting Provider GENERAL: Comfortable, pleasant, disoriented, dysarthric, no respiratory distress SKIN: Normal color, warm HEENT: Bespectacled, [place] palpebral conjunctivae, no ptosis, dry buccal mucosa NECK : Supple, no tenderness CHEST : Decreased breath sounds, no tenderness HEART : RRR, no obvious murmurs ABDOMEN: Some distention, nontender RECTAL : Intact sphincter, dark stool (FOBT negative) EXTREMITIES : No LE swelling/tenderness, no other conspicuous deformities noted NEUROLOGIC : Coherent, flattened nasolabial fold right, dysarthria, MMTS UE/LE 4/5 R < L, gait and stance not assessed Principal Diagnosis Acute stroke New onset seizure Peripheral arterial disease Discharge Exam CONSTITUTIONAL: WNWD, vitals as above, generally well-appearing EYES: EOMI bilaterally, PERRL, normal conjunctivae, no scleral icterus ENT: external ear and nose normal, MMM RESPIRATORY: clear to auscultation bilaterally, no crackles, rales or wheezes, normal respiratory effort CARDIOVASCULAR: regular rate and rhythm, S1 and 2 heard without murmurs, gallops or rubs, no JVD, no peripheral edema GASTROINTESTINAL: soft, nontender, nondistended MUSCULOSKELETAL: strength 5/5 throughout, head is normocephalic and atraumatic SKIN: warm and dry NEUROLOGIC: No facial palsy, no dysarthria. CN 2-12 intact, no sensory de ficit, normal cognition, normal speech, no tremor. Previous RUE deficits have resolved. She is able to grasp my hand and move fingers easily. She is able to actively move her arm in a full ROM. PSYCHIATRIC: alert cooperative and oriented to person, place and time. Discharge Data Allergies Allergy/AdvReac Type Severity Reaction Status Date / Time No Known Allergies Allergy Verified 08/26/20 21:46 Consultations 08/27/20 01:17 ED Decision to Admit Stat 08/27/20 05:32 Consult Neurology Routine 08/27/20 08:58 Consult Vascular Surgery Routine Ordered Studies Laboratory Results WBC 3.48 K/uL (4.8-10.8) L 08/28/20 06:55 RBC 4.51 M/uL (4.2-5.4) 08/28/20 06:55 Hgb 12.1 g/dL (12.0-16.0) 08/28/20 06:55 Hct 37.7 % (37-47) 08/28/20 06:55 MCV 83.6 fL (80-100) 08/28/20 06:55 MCH 26.8 pg (25-34) 08/28/20 06:55 MCHC 32.1 g/dL (32-36) 08/28/20 06:55 RDW Std Deviation 44.8 fL (36.4-46.3) 08/28/20 06:55 RDW Coeff of Myra 14.6 % (11.5-14.5) H 08/28/20 06:55 Plt Count 230 K/uL (130-400) 08/28/20 06:55 MPV 10.1 fL (7.4-10.4) 08/28/20 06:55 Immature Gran % (Auto) 0.3 % 08/28/20 06:55 Neut % (Auto) 63.5 % 08/28/20 06:55 Lymph % (Auto) 19.8 % 08/28/20 06:55 [place] % (Auto) 13.5 % 08/28/20 06:55 Eos % (Auto) 2.6 % 08/28/20 06:55 Baso % (Auto) 0.3 % 08/28/20 06:55 Reticulocyte % (Auto) 0.8 % (0.5-2.0) 08/28/20 06:55 Neut # (Auto) 2.21 K/uL (1.4-6.5) 08/28/20 06:55 Lymph # (Auto) 0.69 K/uL (1.2-3.4) L 08/28/20 06:55 [place] # (Auto) 0.47 K/uL (0.11-0.59) 08/28/20 06:55 Eos # (Auto) 0.09 K/uL (0-0.5) 08/28/20 06:55 Baso # (Auto) 0.01 K/uL (0-0.2) 08/28/20 06:55 Reticulocyte # 0.04 10^6/uL (0.02-0.10) 08/28/20 06:55 Immature Gran # (Auto) 0.01 K/uL (0.00-0.02) 08/28/20 06:55 RBC Morphology Unremarkable 08/28/20 06:55 PT 10.3 Seconds (9.0-12.0) 08/26/20 21:45 INR 1.0 (0.9-1.1) 08/26/20 21:45 APTT 22.6 Seconds (21.0-31.0) 08/26/20 21:45 PTT Ratio 0.9 08/26/20 21:45 Sodium 136 mmol/L (136-145) 08/28/20 06:55 Potassium 4.0 mmol/L (3.5-5.1) 08/28/20 06:55 Chloride 106 mmol/L (98-107) 08/28/20 06:55 Carbon Dioxide 24 mmol/L (21-32) 08/28/20 06:55 Anion Gap 6.0 (3-11) 08/28/20 06:55 BUN 17 mg/dl (7-18) 08/28/20 06:55 Creatinine 0.72 mg/dl (0.6-1.2) 08/28/20 06:55 Est Cr Clr Drug Dosing 73.3 ml/min 08/28/20 06:55 Est GFR ( Amer) 99.0 ml/min 08/28/20 06:55 Est GFR (Non-Af Amer) 85.4 ml/min 08/28/20 06:55 BUN/Creatinine Ratio 23.7 (10-20) H 08/28/20 06:55 Glucose 79 mg/dl (70-99) 08/28/20 06:55 POC Glucose 93 mg/dl (70-99) 08/28/20 07:18 Calcium 8.8 mg/dl (8.5-10.1) 08/28/20 06:55 Magnesium 2.0 mg/dl (1.8-2.4) 08/26/20 21:45 Iron 80 mcg/dl (35-150) 08/28/20 06:55 TIBC 362 mcg/dl (250-450) 08/28/20 06:55 Transferrin 246 mg/dl (200-360) 08/28/20 06:55 Ferritin 37.9 ng/ml (8-388) 08/28/20 06:55 Total Bilirubin 0.2 mg/dl (0.2-1) 08/26/20 21:45 AST 27 U/L (15-37) 08/26/20 21:45 ALT 15 U/L (12-78) 08/26/20 21:45 Alkaline Phosphatase 84 U/L (45-117) 08/26/20 21:45 Ammonia 28.0 umol/L (11-32) 08/27/20 01:55 Troponin I 0.239 ng/ml (0-0.045) H* 08/28/20 06:55 Total Protein 8.9 gm/dl (6.4-8.2) H 08/26/20 21:45 Albumin 2.9 gm/dl (3.4-5.0) L 08/26/20 21:45 Globulin 6.0 gm/dl (2.5-4.0) H 08/26/20 21:45 Albumin/Globulin Ratio 0.5 (0.9-2) L 08/26/20 21:45 Triglycerides 187 mg/dl (0-150) H 08/28/20 06:55 Cholesterol 129 mg/dl (0-200) 08/28/20 06:55 LDL Cholesterol, Calc 64 mg/dl 08/28/20 06:55 VLDL Cholesterol, Calc 37 mg/dl 08/28/20 06:55 HDL Cholesterol 28 mg/dl 08/28/20 06:55 Cholesterol/HDL Ratio 5 08/28/20 06:55 Vitamin B12 641 pg/ml (193-986) 08/28/20 06:55 Folate 10.70 ng/ml (>5.38) 08/28/20 06:55 TSH 5.080 uIu/ml (0.300-4.500) H 08/27/20 01:55 Urine Color Yellow 08/27/20 02:30 Urine Appearance Cloudy (Clear) A 08/27/20 02:30 Urine pH 5.0 (4.5-7.5) 08/27/20 02:30 Ur Specific [place] > 1.045 (1.000-1.030) H 08/27/20 02:30 Urine Protein Negative (Negative) 08/27/20 02:30 Urine Glucose (UA) Negative (Negative) 08/27/20 02:30 Urine Ketones Negative (Negative) 08/27/20 02:30 Urine Blood Negative (Negative) 08/27/20 02:30 Urine Nitrite Negative (Negative) 08/27/20 02:30 Urine Bilirubin Negative (Negative) 08/27/20 02:30 Urine Urobilinogen Negative (Negative) 08/27/20 02:30 Ur Leukocyte Esterase 2+ (Negative) H 08/27/20 02:30 Urine WBC (Auto) >30 /hpf (0-5) H 08/27/20 02:30 Urine RBC (Auto) 0-4 /hpf (0-4) 08/27/20 02:30 U Hyaline Cast (Auto) 0 /lpf (0-5) 08/27/20 02:30 U Epithel Cells (Auto) >30 /lpf (0-5) H 08/27/20 02:30 Urine Bacteria (Auto) 4+ (Negative) H 08/27/20 02:30 COVID-19 Eval Order Covid19 at [facility] 08/27/20 01:30 SARS-CoV-2 (PCR) NEGATIVE (Negative) 08/27/20 01:30 Blood Type A Positive 08/28/20 06:55 Antibody Screen NEGATIVE 08/28/20 06:55 Impressions Chest X-Ray 08/26/20 21:30 XR chest 1V portable CLINICAL HISTORY: Stroke Like Symptoms COMPARISON STUDY: Chest CT March 27, 2019. FINDINGS: Lung volumes are mildly diminished. This is unchanged. Interstitial thickening is chronic and represents interstitial lung disease. Linear bibasilar opacities favor atelectasis or scarring. Cardiomediastinal silhouette is stable. Appearance of the chest is unchanged. IMPRESSION: 1. No acute cardiopulmonary findings. No change in appearance of the chest. 2. Chronic interstitial thickening consistent with interstitial lung disease. ACT 112: Negative or not required by law. Electronically signed by: Nadir Fleming M.D. 08/27/2020 7:55 AM Head CTA 08/26/20 21:30 CT angio head w con CLINICAL HISTORY: Stroke Like Symptoms TECHNIQUE: CT angiography of the head was performed in a dynamic helical fashion during intravenous administration of 120 cc of Optiray. MIP imaging was performed. A dose lowering technique was utilized adhering to the principles of ALARA. CT DOSE: 1000.69 mGycm COMPARISON STUDY: No previous studies for comparison. FINDINGS: There are no lesion suspicious for aneurysm. There are no major intracranial branch occlusions. The dural venous sinuses appear patent. There are cavernous sinus carotid calcifications without evidence of hemodynamically significant stenosis. IMPRESSION: 1. No evidence of major intracranial branch occlusion 2. No evidence of aneurysm 3. Cavernous sinus carotid calcifications without evidence of hemodynamically significant stenosis.. ACT 112: Negative or not required by law. Electronically signed by: Markus Lora M.D. 08/27/2020 8:34 AM Neck CTA 08/26/20 21:30 CT ANGIOGRAM OF THE NECK CLINICAL HISTORY: Strokelike symptoms. COMPARISON STUDY: No priors. TECHNIQUE: Following the IV administration of 120 of Optiray 320, CT angiogram of the neck was performed from the aortic arch to the skull base. Images are reviewed in the axial, sagittal, and coronal planes. 3-D MIPS images are created and assessed. IV contrast was administered without complication. All measurements were calculated based on NASCET criteria. A dose lowering technique was utilized adhering to the principles of ALARA. FINDINGS: Thoracic aorta: There is atherosclerotic calcification of the thoracic aorta. Visualized portions of the thoracic aorta are normal in caliber. The aortic arch demonstrates standard 3-vessel anatomy. Right carotid arterial system: The right common carotid artery is widely patent. There is advanced chronic plaque in the carotid bulb. This causes approximately 50% stenosis of the proximal right internal carotid artery seen on image #121. The remainder of the right internal carotid artery is patent, as is the right external carotid artery. Left carotid arterial system: The left common carotid artery is widely patent, as are the left internal and external carotid arteries. Calcified plaque is noted in the carotid bulb. Vertebral arteries: The vertebral arteries are widely patent bilaterally and codominant. Subclavian arteries: There is advanced atherosclerotic calcification of the innominate artery with possible high-grade stenosis. This is not well assessed due to significant streak artifact. The subclavian arteries are patent bilaterally. Intracranial vasculature: The visualized intracranial vessels at the skull base appear patent. Jugular veins: Widely patent bilaterally. Brain parenchyma: The visualized brain parenchyma the skull base is within normal limits. Lung apices: Emphysematous change is noted with apical scarring. Soft tissues: The visualized pharyngeal soft tissues are normal in appearance noting angiographic phase technique. The oropharyngeal airway appears widely patent. The salivary and thyroid glands are normal in appearance. No cervical lymphadenopathy is seen. Skeletal structures: The skeletal structures are osteopenic. The visualized calvarium at the skull base appears intact. The imaged cervical spine is maintained noting mild spondylosis. No lytic or blastic lesion is seen. Sinuses and mastoids: The visualized paranasal sinuses are clear. The mastoid air cells are well pneumatized. IMPRESSION: 1. There is approximately 50% stenosis of the proximal right internal carotid artery. 2. The left carotid arterial system and the vertebral arteries are patent. 3. Question high-grade stenosis/near complete occlusion of the innominate artery. This is not well assessed due to significant streak artifact. If further evaluation is desired a CT angiogram of the chest would be appropriate. 4. Emphysema. ACT 112: Negative or not required by law. Electronically signed by: Ziyad Estrella M.D. 08/27/2020 7:46 AM Chest CTA 08/27/20 09:38 CT ANGIOGRAM OF THE CHEST COMBO CLINICAL HISTORY: Strokelike symptoms. Innominate artery stenosis suggested on CT angiogram of the neck. COMPARISON STUDY: Chest CT scans dated 03/27/2019 and 04/22/2018. TECHNIQUE: Before and following the IV administration of 120 cc of Optiray 320, CT angiogram of the chest was performed from the thoracic inlet to the upper abdomen utilizing the dissection protocol. Images are reviewed in the axial, sagittal, and coronal planes. 3-D MIPS images are created and assessed. IV contrast was administered without complication. A dose lowering technique was utilized adhering to the principles of ALARA. The examination is degraded by lack of patient cooperation. The examination is degraded by streak artifact from the arms which could not be elevated above the chest as well as by motion. CT DOSE: 710.49 mGy.cm FINDINGS: Thyroid: Imaged portions of the thyroid gland are normal in size and attenuation. Thoracic aorta: No intramural hematoma is seen on the unenhanced series. There is advanced atherosclerotic calcification of the thoracic aorta. There is mild aneurysmal dilatation of the ascending thoracic aorta which measures up to 4.0 cm in diameter. The remainder of the thoracic aorta is normal in caliber and the arch demonstrates standard 3-vessel anatomy. No dissection is seen. There is high-grade stenosis with near complete occlusion and only trace flow identified within the innominate artery below the thoracic outlet, best seen on axial image #70. There is only minimal stenosis at the origin of the left common carotid artery. Pulmonary vasculature: The pulmonary trunk is normal in caliber. There are no filling defects within the main, lobar, or very proximal segmental pulmonary arteries to suggest pulmonary embolus. The segmental and subsegmental branches are not well assessed due to motion artifact. Heart: The heart is mildly enlarged and without pericardial effusion. The coronary arteries are densely calcified. Lungs and pleural spaces: Evaluation of the lung parenchyma is significantly degraded by motion artifact. Exam is change is noted, with evidence of superimposed chronic additional lung disease. Subpleural reticulation and mild groundglass change is seen throughout both lungs, greatest at the lung bases. Mild traction bronchiectasis is noted in the lower lobes. No honeycombing is seen. Dependent fibrotic change at the lung bases is similar to previous. There is no evidence of superimposed airspace consolidation or pleural effusion. Mediastinum: There is no mediastinal lymphadenopathy. Kristina: Clear. Axillae: There is no axillary lymphadenopathy. Upper abdomen: There is a small hiatal hernia. Partially imaged upper abdominal viscera is otherwise grossly unremarkable. Skeletal structures: The skeletal structures are osteopenic. Degenerative change is noted in the shoulders and thoracic spine. No lytic or blastic bony lesions are seen. IMPRESSION: 1. Significantly streak and motion compromised examination. 2. Findings of emphysema and superimposed chronic interstitial lung disease are similar to previous. 3. There is mild aneurysmal dilatation of the ascending thoracic aorta which measures up to 4.0 cm. 4. There is high-grade stenosis with near complete occlusion and only trace flow identified within the innominate artery below the thoracic outlet. Note that this may place the patient at risk for steal phenomenon. Vascular surgical assessment is advised. 5. There is no evidence of superimposed airspace consolidation or pleural effusion. 6. Cardiomegaly. 7. There is no evidence of central pulmonary embolus within the main, lobar, or very proximal segmental pulmonary arteries. The peripheral vessels are not well evaluated due to motion artifact. 8. Additional findings as above. ACT 112: Negative or not required by law. Electronically signed by: Ziyad Estrella M.D. 08/28/2020 3:[address] 08/28/20 07:23 CT SCAN OF THE BRAIN WITHOUT IV CONTRAST CLINICAL HISTORY: Strokelike symptoms. COMPARISON STUDY: CT of the brain dated 08/26/2020. MRI of the brain dated 12/22/2011. TECHNIQUE: Unenhanced axial CT scan of the brain is performed from the vertex to the skull base. A dose lowering technique was utilized adhering to the principles of ALARA. The patient was scanned twice due to motion artifact. The examination is motion compromised. CT DOSE: 1216.25 mGy.cm FINDINGS: Brain parenchyma: The small chronic infarct is again seen in the high right frontal lobe. Additional foci of encephalomalacia in the right frontal lobe and the right parieto-occipital lobe may also be chronic. There are age-related involutional changes noting mild subcortical and periventricular microan giopathic change. There is no hemorrhage or mass effect. No extra-axial fluid collection is seen. Ventricles, sulci, cisterns: Prominent secondary to involutional change. Intracranial vasculature: There is atherosclerotic calcification of the cavernous carotid arteries. Calvarium: Unremarkable. Sinuses and mastoids: The paranasal sinuses are clear. The mastoid air cells are well pneumatized. Orbits: The bony orbits are grossly intact. IMPRESSION: 1. Significantly motion compromised examination. 2. There is no hemorrhage or mass effect. 3. There are small right-sided cortical infarcts as above. These were questioned subacute yesterday but appear more chronic on today's examination. ACT 112: Negative or not required by law. Electronically signed by: Ziyad Estrella M.D. 08/28/2020 7:59 AM Hospital Course (1) Seizure: New seizure like activity this admission, possibly related to cerebrovas cular disease. Keppra started and no further seizure episodes this admission. Will cont this at discharge with close neurology follow-up. EEG performed shortly after seizure event occurred revealed no evidence of focal slowing or epileptiform activity. Repeat head CT revealed the infarcts from admission appeared more chronic, however, clinically still had very acute stroke like changes on the right that are not explained. She adamantly declined MRI. (2) Acute metabolic encephalopathy: 2/2 acute CVA in setting of UTI complicated by seizure. Improved with antibiotics, time and CVA protocol (permissive hypertension, etc), and Keppra load. (3) Acute CVA (cerebrovascular accident): aphasia and right sided weakness present on admission. DAPT recommended with high intensity statin therapy (Lipitor). Limited echo, no events on telemetry. She had a resolution of deficits prior to discharge. 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 Vascular consulted. CT chest with contrast revealed same stenosis on the right with only minimal left common carotid artery stenosis. No intervention per vascular at this time. (6) Elevated troponin: 2/2 stroke/seizure Total Time Total Time Spent Total Time Spent (In Minutes): 60 Total Time Includes: Examination of the Patient, Discharge Planning, Medication Reconciliation and Communication With Other Providers Discharge Plan Discharge Items Patient Disposition: Home - Self-Care Reason For Visit: CVA Discharge Diagnosis: Acute stroke New onset seizure Peripheral arterial disease Condition on Discharge: Good Activity: As commented below Activity Comment: NO DRIVING ANYTHING FOR 6 MONTHS, MUST BE CLEARED BY PHYSICIAN TO RESUME Non-emergency contact: Primary Care Provider and Neurologist Call non-emergency contact if: you have any medication questions Follow-up/Referrals: Ryan Hatfield MD [Primary Care Provider] - Diet: Heart Healthy Addtl Attending Provider Instructions: Ms. Chowdary, You were admitted to the hospital for what appears to be an acute stroke complicated by seizure activity. You had an infection in your bladder that was treated with antibiotics. You were also found to have severe peripheral arterial disease with significant stenosis in the right brachiocephalic artery. This may need to be monitored by a vascular surgeon non-urgently. SMOKING CESSATION IS CRUCIAL TO AVOIDING REPEAT STROKE IN THE FUTURE. [id number] Please take all medications as instructed on discharge list below. You will take ASPIRIN, PLAVIX and ATORVASTATIN for secondary prevention of stroke. You are being given KEPPRA for prevention of seizures. You will need to follow-up with [facility] in 4-6 weeks. You are restricted from driving for 6 months because of recent seizure activity. You are not allowed to drive anything or operate heavy machinery including farm equipment. You must be cleared to return to drive from your Neurologist. You will be contacted by the [facility] clinic for some studies coming up including a repeat electroencephalogram (EEG) and an event monitor for your heart. It is recommended that you follow-up with your primary care physician in the next week to ensure you are doing well on all new medications, and since returning home from the hospital. It was a pleasure taking care of you! Please call if you have any questions or problems. You can reach a [facility] hospitalist on duty at [facility] 24 hours a day by calling [phone]. Take care of yourself. Mercedes Sethi, DO [facility] Hospitalist Pending Studies at Discharge: No Stand-Alone Forms: My [facility], Smoking Cessation Medications and DC Order Prescriptions: New atorvastatin 40 mg Tablet 40 mg PO QAM Qty: 30 RF: 0 aspirin 81 mg Tablet,Delayed Release (Dr/Ec) 81 mg PO QAM Qty: 90 RF: 1 levetiracetam [Keppra] 500 mg Tablet 500 mg PO BID Qty: 60 RF: 0 Pharmacist Discharge Consult [Pharmacist Discharge Med Rec Consult] 1 dose Not Applicable UD PRN (Reason: med re) Qty: 1 RF: 0 clopidogrel [Plavix] 75 mg tablet 75 mg PO DAILY Qty: 30 RF: 0 Continued cholecalciferol (vitamin D3) 25 mcg (1,000 unit) tablet 25 mcg PO DAILY RF: 0 doxepin 50 mg capsule 50 - 150 mg PO HS PRN (Reason: Sleep) RF: 0 mycophenolate mofetil 500 mg tablet 1,000 mg PO BID RF: 0 lisinopril 5 mg tablet 5 mg PO DAILY RF: 0 gabapentin 100 mg capsule 100 mg PO TID RF: 0 Discontinued omeprazole 20 mg capsule,delayed release(DR/EC) 20 mg PO BID RF: 0 Discharge Orders: Discharge Order (Routine); Ordered 08/30/20 Ordered By: Mercedes Sethi Admission Data Admit Date/Time: 08/27/20 03:18 Attending Provider: Mercedes Sethi Admit Provider: Sp Trujillo Primary Care Provider: Ryan Hatfield Other Providers: Sp Trujillo ; Mariann Shoemaker ; Porfiroi Fabian ; Mariann Frederick ; Partha Lux ; Miguel Angel Roberts ; [facility] Other Interventions: Discharge Summary Assessment (RN) Last Done: 08/30/20 16:12
[2020-08-30] MEDS ORDERED: STROKE PATIENT DISCHARGE STA (15:28)
--- NOTE | 2020-08-30 17:23 | Pharmacy Report ---
Pharmacist Stroke Counseling - Date of Service August 30, 2020 - Scope: Pharmacy has been consulted to provide medication discharge counseling for this patient admitted with [ischemic stroke] [hemorrhagic stroke] [transient ischemic attack] as per the Pharmacist Discharge Counseling for Stroke Patients Protocol . - Medications on Discharge: Home Medications Medication Instructions Recorded Confirmed doxepin 50 - 150 mg PO HS PRN 12/03/18 08/26/20 gabapentin 100 mg PO TID 12/03/18 08/26/20 lisinopril 5 mg PO DAILY 12/03/18 08/26/20 mycophenolate mofetil 1,000 mg PO BID 12/03/18 08/26/20 cholecalciferol (vitamin D3) 25 25 mcg PO DAILY 03/27/19 08/26/20 mcg (1,000 unit) tablet New Rx's Medication Instructions Recorded Pharmacist Discharge Consult 1 dose NOT APPLICABLE UD PRN #1 amp 08/30/20 [Pharmacist Discharge Med Rec Consult] aspirin 81 mg PO QAM #90 tab 08/30/20 atorvastatin 40 mg PO QAM #30 tab 08/30/20 clopidogrel [Plavix] 75 mg PO DAILY #30 tab 08/30/20 levetiracetam [Keppra] 500 mg PO BID #60 tab 08/30/20 - Action: The above medications, specifically ones for stroke treatment/prophylaxis, have been reviewed in detail with the patient prior to discharge. This includes indication, common adverse reactions, drug interactions, and medication administration. Medication counseling has been employed using the teach-back method to ensure understanding. - Outcome: The patient has demonstrated understanding of the medications. Additional comments: -spoke with patient in person. -discussed with physician about Plavix + Prilosec. Physician will change to Protonix. Thank you for allowing pharmacy to be involved in the care of this patient. Please call [phone] with any additional questions
--- NOTE | 2020-08-31 14:32 | Communication Note ---
Date of Service: August 31, 2020 Received a call to the office from patient's daughter saying that she was having difficulty pushing the phone buttons earlier today. Called patient and she states that she felt some weakness in her hand and didn't feel strong enough to push the buttons at that time. Other than some generalized weakness, she reports feeling fine and is oriented and answering questions appropriately. She reports that she was able to garbage pick up man her medications from her pharmacy. Her AMBROCIO is there with her during this conversation. Based on the PT and OT recommendations from yesterday, I offered a short term stay at rehab, specifically [facility]. She declined. I offered home health for PT, OT and home nursing for vitals check, med review and post-hospital evaluation and she was fine with that. I discussed with her that if she had another event such as an additional seizure or stroke and was living alone, there would be no one to help her. I asked if there was anyone who she could go stay with or someone who could come stay with her? She said she would prefer to be on her own and that she would be fine. She verbalized understanding of the instructions and thanked me for my time. track manager notified of request for home health referral. DO Navdeep
== END 2020-08-30 17:41 | disposition home health service (06) | DRG 64 ==
LOC: ED 20:53 → 2W 08-27 03:18 → 2S 08-28 08:33

== ENCOUNTER 2021-09-06 16:09 | Inpatient (IN) ==
[2021-09-06] MEDS ORDERED: SODIUM CHLORIDE 0.9% 1000ML 1,000 ML IV STA (16:18)
--- NOTE | 2021-09-06 16:18 | Emergency Department Note ---
Impression & Plan Elevated troponin ADMIT ED Provider Note HPI: The patient is a 71-year-old female with history of dermatomyositis, COPD, presents emergency department chief complaint of bilateral leg weakness. Patient states is been ongoing for the past several days, she states today she is felt so weak that her legs "gave out" and she fell. Patient arrives via EMS for further evaluation. Patient denies any recent fevers, states she is not currently having any pain. On arrival the patient is listless appearing, she was noted to have a blood pressure of 61/29 initially however with repositioning and recheck this did improve into the 80s systolic, patient is alert on arrival, she is saturating well on room air. ROS: -MSK: Generalized muscle weakness, fall *10 point review systems was conducted and is otherwise negative unless stated above *Outpatient medications and allergy history reviewed PE: General: Alert, frail-appearing HEENT: Normocephalic, atraumatic Eyes: No scleral erythema or purulence Pulmonary: Clear to auscultation bilaterally, no wheezing Cardio: Regular rate and rhythm GI: Abdomen is soft, nontender : No suprapubic tenderness MSK: No evidence of trauma or malformation of the extremities, no edema, patient maintains flexion at the hips bilaterally Skin: No evidence of rash Neuro: Alert, no focal deficits Psychiatric: Cooperative technical solution architect: - An order was placed for continuous cardiac monitoring - Patient was noted to be in sinus rhythm with rate of 80 EKG: Rate: 97 Rhythm: Sinus rhythm Intervals: Within normal limits ST changes: No ST elevation Time: 1618 Medical Decision Making: Patient presented to the emergency department with generalized weakness, mostly in the lower extremities, states that she did have a fall earlier today. IV was established after some delay secondary to difficulty with access, lab work was obtained, EKG was obtained that does not show any evidence of ST elevation, lab work shows evidence of an elevated high-sensitivity troponin level at 158, in addition patient has an elevated CK level greater than 2000, patient was given 2 L of IV fluid here in the ED, blood pressure did improve with IV fluid. She does not have a leukocytosis, denies any recent fever, blood cultures were drawn here in the ED but will hold off on antibiotics given lack of any source of infection. Chest x-ray does show some dependent lower airspace opacities consistent with likely atelectasis, patient does not have any respiratory symptoms and is afebrile here in the ED. Patient was given an aspirin for elevated troponin without any evidence of ST elevation on EKG. She did not have any chest pain, denies any shortness of breath. In regards to the patient's fall, this apparently was mechanical in nature secondary to her leg weakness which is likely related to her dermatomyositis, imaging of the head is negative for any acute intracranial process, x-ray imaging of the bilateral hips does not show any evidence of fracture. Given the patient's elevated troponin level, CT angiography of the chest was obtained that shows no evidence of aortic dissection or pulmonary embolism. On my reassessment the patient is resting comfortably in bed, blood pressure does remain somewhat soft in the 90s systolic but she is alert and in no acute distress. She denies any chest pain or shortness of breath I did discuss the above findings with the on-call hospitalist for [facility], Dr. Andrew posadas, and the patient was admitted to a telemetry bed for further management of the above issues. Patient was admitted in stable condition. Diagnosis: 1. Elevated troponin level 2. Rhabdomyolysis 3. Generalized weakness 4. Ambulatory dysfunction Disposition: Admission Werner Vilchis DO Emergency Medicine Past Med/Surg History Surgical History History of hysterectomy Social History Smoking Status: Former smoker Tobacco Type: Cigarettes Hx Alcohol Use: No Hx Substance Use: No Preferred Language: Faroese Communication Ability: Effective Neuropsychology Director Required: No Beliefs That Will Affect Care: None marital status: Single Current Living Situation: Alone Feels Safe at Home: Yes Assistive Devices: Denture - Upper, Denture - Lower and Glasses Allergies Allergies Allergy/AdvReac Type Severity Reaction Status Date / Time No Known Allergies Allergy Verified 08/26/20 21:46 Home Meds Home Medications Medication Instructions Recorded Confirmed doxepin 50 mg capsule 50 - 150 mg PO HS PRN 12/03/18 08/26/20 gabapentin 100 mg capsule 100 mg PO TID 12/03/18 08/26/20 lisinopril 5 mg tablet 5 mg PO DAILY 12/03/18 08/26/20 mycophenolate mofetil 500 mg tablet 1,000 mg PO BID 12/03/18 08/26/20 cholecalciferol (vitamin D3) 25 25 mcg PO DAILY 03/27/19 08/26/20 mcg (1,000 unit) tablet Previous Rx's Medication Instructions Recorded Pharmacist Discharge Consult 1 dose NOT APPLICABLE UD PRN #1 amp 08/30/20 [Pharmacist Discharge Med Rec Consult] aspirin 81 mg tablet,delayed 81 mg PO QAM #90 tab 08/30/20 release atorvastatin 40 mg tablet 40 mg PO QAM #30 tab 08/30/20 clopidogrel 75 mg tablet (Plavix) 75 mg PO DAILY #30 tab 08/30/20 levetiracetam 500 mg tablet 500 mg PO BID #60 tab 08/30/20 (Keppra) Results & Data (ED) Vital Signs Vital Signs - 24 hr 09/06/21 16:14 09/06/21 16:46 09/06/21 17:58 Pulse Rate 97 H Respiratory Rate 20 20 Respiratory Effort / Characteristics Non-Labored Respiratory Depth Normal Respiratory Pattern Regular Blood Pressure 61/29 L Blood Pressure [Left Arm] 101/70 Blood Pressure Mean 39 Blood Pressure Mean [Left Arm] 80 Pulse Oximetry 99 98 Oxygen Delivery Method Room Air Room Air Sepsis Recent Fever Within 48 Hours No Sepsis New/Unexplained Change in Mental Status No Sepsis Action Taken by Nursing No Action Required Laboratory Data Result diagrams: 09/06/21 16:28 09/06/21 16:28 Lab Results 09/06/21 09/06/21 09/06/21 Range/Units 16:28 16:28 16:30 WBC 9.21 (4.8-10.8) K/ul RBC 4.80 (3.93-5.22) M/uL Hgb 12.3 (12.0-16.0) g/dl Hct 40.0 (34.1-44.9) % MCV 83.3 (80.0-100.0) fL MCH 25.6 (25.0-34.0) pg MCHC 30.8 L (32.0-36.0) g/dL RDW Std Deviation 47.8 H (36.4-46.3) fL RDW Coeff of Myra 15.8 H (11.5-14.5) % Plt Count 330 (130-400) K/uL MPV 10.3 (9.4-12.3) fL Immature Gran % (Auto) 0.4 % Neut % (Auto) 87.4 % Lymph % (Auto) 5.6 % Harris % (Auto) 4.6 % Eos % (Auto) 1.6 % Baso % (Auto) 0.4 % Neut # (Auto) 8.04 H (1.4-6.5) K/uL Lymph # (Auto) 0.52 L (1.2-3.4) K/uL Harris # (Auto) 0.42 (0.24-0.82) K/uL Eos # (Auto) 0.15 (0-0.50) K/uL Baso # (Auto) 0.04 (0-0.2) K/uL Immature Gran # (Auto) 0.04 H (0.00-0.02) K/uL Sodium 133 L (136-145) mmol/L Potassium 4.0 (3.5-5.1) mmol/L Chloride 100 (98-107) mmol/L Carbon Dioxide 24 (21-32) mmol/L Anion Gap 9 (3-11) BUN 19 (6-23) mg/dl Creatinine 0.81 (0.6-1.2) mg/dl Est Cr Clr Drug Dosing 64.4 ml/min Est GFR ( Amer) 85.3 ml/min Est GFR (Non-Af Amer) 73.6 ml/min BUN/Creatinine Ratio 23.5 H (10-20) Glucose 103 H (70-99(Fasting)) mg/dl Lactate 1.0 (0.4-2.0) mmol/L Calcium 8.5 (8.5-10.1) mg/dl Total Bilirubin 0.7 (0.2-1.0) mg/dl AST 117 H (13-39) U/L ALT 55 H (7-52) U/L Alkaline Phosphatase 100 (34-104) U/L Total Creatine Kinase 2467 H (26-192) U/L Troponin I High Sens 158.4 H* (0-14) pg/ml Total Protein 6.1 (6.0-8.3) gm/dl Albumin 3.0 L (3.4-5.0) gm/dl Globulin 3.1 (2.5-4.0) gm/dl Albumin/Globulin Ratio 1.0 (0.9-2) Lipase 16 (11-82) U/L Administered Medications Discontinued Medications Sodium Chloride (Nss 1000ml) 1,000 mls @ 999 mls/hr IV .Q1H1M STA Stop: 09/06/21 17:18 Last Infusion: 09/06/21 18:06 Dose: 0 mls/hr Documented by: [id number] Admin: 09/06/21 16:35 Dose: 999 mls/hr Documented by: [id number] Sodium Chloride (Nss 1000ml) 1,000 mls @ 999 mls/hr IV .Q1H1M ONE Stop: 09/06/21 18:50 Last Infusion: 09/06/21 19:16 Dose: 0 mls/hr Documented by: [id number] Admin: 09/06/21 18:07 Dose: 999 mls/hr Documented by: [id number] Ioversol (Optiray 320 125ml) 120 ml IV ONCE ONE Stop: 09/06/21 19:30 Last Admin: 09/06/21 19:31 Dose: 120 ml Documented by: [id number] Imaging Data Radiologist's Impression: Chest X-Ray 09/06/21 16:18 SINGLE VIEW CHEST CLINICAL HISTORY: Generalized weakness. FINDINGS: An AP, portable, upright chest radiograph is compared to study dated 08/26/2020 and correlated with chest CT dated 08/28/2020. The cardiomediastinal silhouette is unremarkable noting atherosclerotic calcification of the thoracic aorta. There are low lung volumes. Emphysema and chronic interstitial thickening is similar to previous. There is evidence of superimposed chronic interstitial lung disease. Dependent airspace opacities likely represent scarring/atele ctasis. No large pleural effusion or pneumothorax is seen. The skeletal structures are osteopenic. The bony thorax is grossly intact. Arthritic change is seen in the shoulders. Cholecystectomy clips are noted in the right upper quadrant. IMPRESSION: 1. Low lung volumes with emphysema and changes of superimposed chronic interstitial lung disease are similar to previous. 2. Dependent opacities likely represent scarring/atelectasis. Clinical correlation will be required. ACT 112: Negative or not required by law. Electronically signed by: Ziyad Estrella M.D. 09/06/2021 4:[address] 09/06/21 16:19 CT head/brain wo con CLINICAL HISTORY: fall . Weakness. Altered mental status and confusion COMPARISON STUDY: 03/31/2020 CT DOSE: 729.78 mGycm TECHNIQUE: Standard CT of the Brain was performed without IV contrast. A dose lowering technique was utilized adhering to the principles of ALARA. FINDINGS: Extraaxial space: There is no evidence for subdural hematoma. There are no extra-axial fluid collections. Ventricles and cisterns: The ventricles are mildly dilated bilaterally. There is no evidence for midline shift or mass effect. Parenchyma: There is no subarachnoid or intraparenchymal hemorrhage. There is no evidence for an acute infarct or cerebral edema. Patchy areas of low attenuation are again seen involving the right frontal parietal lobe and right parieto- occipital lobe. These are most characteristic of old infarcts. There is mild cerebral cortical atrophy and decreased attenuation in the periventricular white matter representing remote small vessel disease. There are no gross mass lesions. Osseous structures: There is no evidence for an acute fracture. The visualized paranasal sinuses are clear. The mastoid air cells are clear bilaterally. Soft tissues: There is no evidence for focal soft tissue swelling. IMPRESSION: 1. No acute intracerebral pathology. 2. Old right-sided infarcts. 3. Cerebral cortical atrophy and remote small vessel disease. ACT 112: Negative or not required by law. Electronically signed by: Oliverio Bender M.D. 09/06/2021 5:15 PM Hip/Pelvis X-Ray 09/06/21 16:19 XR hip DAMIEN 2v w pelvis CLINICAL HISTORY: fall, L hip pain. COMPARISON STUDY: No previous studies for comparison. TECHNIQUE: AP pelvis and both hips each two views FINDINGS: Bones: There is no evidence for an acute fracture or dislocation. There is no lytic or blastic lesion. Joints: The joint spaces are maintained. The bones are in anatomic alignment. Soft tissues: There is no focal soft tissue abnormality. There is no radiopaque foreign body. IMPRESSION: 1. No acute osseous pathology. ACT 112: Negative or not required by law. Electronically signed by: Oliverio Bender M.D. 09/06/2021 4:47 PM Chest CTA 09/06/21 17:37 CT angio chest PE protocol CLINICAL HISTORY: Weakness and shortness of breath COMPARISON STUDY: CTA chest from 08/27/2020 and portable chest from 09/06/2021 CT DOSE: 251.99 mGy.cm TECHNIQUE: CT Angio of the chest was performed.followed by image post processing with coronal, and sagittal MIP reformats. Contrast Volume: Optiray 320, 120 ml FINDINGS: Vasculature: There is homogeneous perfusion of the pulmonary vasculature bilaterally. No intraluminal filling defects or evidence for pulmonary embolus is seen. Airway: The airway is clear. No endobronchial lesion is identified. Lungs: Compared to the previous examination, chronic interstitial fibrotic changes are present particularly involving the lung bases bilaterally, right greater than left. The lungs are otherwise clear of acute alveolar opacities, air bronchograms or pulmonary nodules. Pleura: There is no evidence for pleural effusion. There is no evidence for pneumothorax. Mediastinum: There is no evidence for pathologic adenopathy. The heart is enlarged. There is coronary artery calcification. There is again mild fusiform aneurysmal dilatation of the ascending thoracic aorta which measures 3.8 cm on the current study. There is again evidence for extensive atherosclerotic calcification of the aortic arch and origin of the great vessels. 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 There is no evidence for pericardial effusion. Upper abdomen:The adrenal glands are normal bilaterally. There is a small hiatal hernia. There is also evidence for hepatosplenomegaly. Osseous structures: There is no acute osseous pathology. Impression: 1. No CTA evidence for pulmonary embolus. 2. Interstitial fibrotic changes are again seen involving both lungs, right greater than left. 3. Otherwise, no acute chest disease. 4. Additional chronic changes are again seen as delineated above. ACT 112: Negative or not required by law. Electronically signed by: Oliverio Bender M.D. 09/06/2021 7:56 PM Discharge Plan Visit Data Chief Complaint: Leg Weakness, Bilateral Stated Complaint: FALL, LEG WEAKNESS ED Provider: Werner Vilchis Discharge Problem: Elevated troponin Forms Stand Alone Forms: My [facility] [employer] Prescriptions Prescriptions: No Action cholecalciferol (vitamin D3) 25 mcg (1,000 unit) tablet 25 mcg PO DAILY RF: 0 doxepin 50 mg capsule 50 - 150 mg PO HS PRN (Reason: Sleep) RF: 0 mycophenolate mofetil 500 mg tablet 1,000 mg PO BID RF: 0 lisinopril 5 mg tablet 5 mg PO DAILY RF: 0 gabapentin 100 mg capsule 100 mg PO TID RF: 0 atorvastatin 40 mg Tablet 40 mg PO QAM Qty: 30 RF: 0 aspirin 81 mg Tablet,Delayed Release (Dr/Ec) 81 mg PO QAM Qty: 90 RF: 1 levetiracetam [Keppra] 500 mg Tablet 500 mg PO BID Qty: 60 RF: 0 Pharmacist Discharge Consult [Pharmacist Discharge Med Rec Consult] 1 dose Not Applicable UD PRN (Reason: med re) Qty: 1 RF: 0 clopidogrel [Plavix] 75 mg tablet 75 mg PO DAILY Qty: 30 RF: 0 Referrals Referrals: Ryan Hatfield MD [Primary Care Provider] -
[2021-09-06 16:42] LABS: Basophils # (auto) 0.04 K/uL (0-0.2); Basophils % (auto) 0.4 %; Eosinophils # (auto) 0.15 K/uL (0-0.50); Eosinophils % (auto) 1.6 %; Hemoglobin 12.3 g/dl (12.0-16.0); Immature Granulocytes # (auto) 0.04 K/uL (0.00-0.02); Immature Granulocytes % (auto) 0.4 %; Lymphocytes # (auto) 0.52 K/uL (1.2-3.4); Lymphocytes % (auto) 5.6 %; Mean Corpuscular Hemoglobin 25.6 pg (25.0-34.0); Mean Corpuscular Hgb Conc 30.8 g/dL (32.0-36.0); Mean Corpuscular Volume 83.3 fL (80.0-100.0); Mean Platelet Volume 10.3 fL (9.4-12.3); Monocytes # (auto) 0.42 K/uL (0.24-0.82); Monocytes % (auto) 4.6 %; Neutrophils # (auto) 8.04 K/uL (1.4-6.5); Neutrophils % (auto) 87.4 %; Platelet Count 330 K/uL (130-400); RDW Coefficient of Variation 15.8 % (11.5-14.5); RDW Standard Deviation 47.8 fL (36.4-46.3); White Blood Count 9.21 K/ul (4.8-10.8)
--- NOTE | 2021-09-06 16:43 | XRay Report ---
SINGLE VIEW CHEST CLINICAL HISTORY: Generalized weakness. FINDINGS: An AP, portable, upright chest radiograph is compared to study dated 08/26/2020 and correlate d with chest CT dated 08/28/2020. The cardiomediastinal silhouette is unremarkable noting atherosclerot ic calcification of the thoracic aorta. There are low lung volumes. Emphysema and chronic interstitia l thickening is similar to previous. There is evidence of superimposed chronic interstitial lung dise ase. Dependent airspace opacities likely represent scarring/atelectasis. No large pleural effusion or pneumothorax is seen. The skeletal structures are osteopenic. The bony thorax is grossly intact. Art hritic change is seen in the shoulders. Cholecystectomy clips are noted in the right upper quadrant. IMPRESSION: 1. Low lung volumes with emphysema and changes of superimposed chronic interstitial lung disease are similar to previous. 2. Dependent opacities likely represent scarring/atelectasis. Clinical correlation will be required. ACT 112: Negative or not required by law. Electronically signed by: Ziyad Estrella M.D. 09/06/2021 4:42 PM
--- NOTE | 2021-09-06 16:48 | XRay Report ---
XR hip DAMIEN 2v w pelvis CLINICAL HISTORY: fall, L hip pain. COMPARISON STUDY: No previous studies for comparison. TECHNIQUE: AP pelvis and both hips each two views FINDINGS: Bones: There is no evidence for an acute fracture or dislocation. There is no lytic or blastic lesion . Joints: The joint spaces are maintained. The bones are in anatomic alignment. Soft tissues: There is no focal soft tissue abnormality. There is no radiopaque foreign body. IMPRESSION: 1. No acute osseous pathology. ACT 112: Negative or not required by law. Electronically signed by: Oliverio Bender M.D. 09/06/2021 4:47 PM
--- NOTE | 2021-09-06 17:17 | CT Scan Report ---
CT head/brain wo con CLINICAL HISTORY: fall . Weakness. Altered mental status and confusion COMPARISON STUDY: 03/31/2020 CT DOSE: 729.78 mGycm TECHNIQUE: Standard CT of the Brain was performed without IV contrast. A dose lowering technique was utilized adhering to the principles of ALARA. FINDINGS: Extraaxial space: There is no evidence for subdural hematoma. There are no extra-axial fluid collecti ons. Ventricles and cisterns: The ventricles are mildly dilated bilaterally. There is no evidence for midl ine shift or mass effect. Parenchyma: There is no subarachnoid or intraparenchymal hemorrhage. There is no evidence for an acut e infarct or cerebral edema. Patchy areas of low attenuation are again seen involving the right front al parietal lobe and right parieto-occipital lobe. These are most characteristic of old infarcts. The re is mild cerebral cortical atrophy and decreased attenuation in the periventricular white matter re presenting remote small vessel disease. There are no gross mass lesions. Osseous structures: There is no evidence for an acute fracture. The visualized paranasal sinuses are clear. The mastoid air cells are clear bilaterally. Soft tissues: There is no evidence for focal soft tissue swelling. IMPRESSION: 1. No acute intracerebral pathology. 2. Old right-sided infarcts. 3. Cerebral cortical atrophy and remote small vessel disease. ACT 112: Negative or not required by law. Electronically signed by: Oliverio Bender M.D. 09/06/2021 5:15 PM
[2021-09-06 17:35] LABS: Troponin I High Sensitivity 158.4 pg/ml (0-14)
[2021-09-06 17:36] LABS: BUN Creatinine Ratio 23.5 (10-20); Calcium 8.5 mg/dl (8.5-10.1); Creatinine Clr Calc Pharmacy 64.4 ml/min; Est GFR (African American) 85.3 ml/min; Est GFR (Non-African American) 73.6 ml/min
[2021-09-06 17:38] LABS: Bilirubin,Total 0.7 mg/dl (0.2-1.0); Globulin 3.1 gm/dl (2.5-4.0); Total Protein 6.1 gm/dl (6.0-8.3)
[2021-09-06] MEDS ORDERED: SODIUM CHLORIDE 0.9% 1000ML 1,000 ML IV ONE (17:50)
[2021-09-06] MEDS ORDERED: OPTIRAY 320 125ml IV ONE (19:29)
--- NOTE | 2021-09-06 19:58 | CT Scan Report ---
CT angio chest PE protocol CLINICAL HISTORY: Weakness and shortness of breath COMPARISON STUDY: CTA chest from 08/27/2020 and portable chest from 09/06/2021 CT DOSE: 251.99 mGy.cm TECHNIQUE: CT Angio of the chest was performed.followed by image post processing with coronal, and s agittal MIP reformats. Contrast Volume: Optiray 320, 120 ml FINDINGS: Vasculature: There is homogeneous perfusion of the pulmonary vasculature bilaterally. No intraluminal filling defects or evidence for pulmonary embolus is seen. Airway: The airway is clear. No endobronchial lesion is identified. Lungs: Compared to the previous examination, chronic interstitial fibrotic changes are present partic ularly involving the lung bases bilaterally, right greater than left. The lungs are otherwise clear o f acute alveolar opacities, air bronchograms or pulmonary nodules. Pleura: There is no evidence for pleural effusion. There is no evidence for pneumothorax. Mediastinum: There is no evidence for pathologic adenopathy. The heart is enlarged. There is coronary artery calcification. There is again mild fusiform aneurysmal dilatation of the ascending thoracic a carol which measures 3.8 cm on the current study. There is again evidence for extensive atheroscleroti c calcification of the aortic arch and origin of the great vessels. There is again a high-grade steno sis of the innominate artery. There is no evidence for pericardial effusion. Upper abdomen:The adrenal glands are normal bilaterally. There is a small hiatal hernia. There is als o evidence for hepatosplenomegaly. Osseous structures: There is no acute osseous pathology. Impression: 1. No CTA evidence for pulmonary embolus. 2. Interstitial fibrotic changes are again seen involving both lungs, right greater than left. 3. Otherwise, no acute chest disease. 4. Additional chronic changes are again seen as delineated above. ACT 112: Negative or not required by law. Electronically signed by: Oliverio Bender M.D. 09/06/2021 7:56 PM
[2021-09-06] MEDS ORDERED: ASPIRIN CHEW 324 MG PO STA (20:20)
[2021-09-06 23:02] LABS: Appearance Urine Clear (Clear); Bacteria Urine Automated 1+ (Negative); Bilirubin Urine Negative (Negative); Blood Urine Negative (Negative); Cast Urine Automated 0 /lpf (0-5); Color Urine Yellow; Glucose Urine UA Negative (Negative); Ketones Urine Negative (Negative); Leukocyte Esterase Urine Trace (Negative); Nitrite Urine Negative (Negative); Protein Urine Negative (Negative); RBC Urine Automated 0-4 /hpf (0-4); Specific Gravity Urine 1.016 (1.000-1.030); Urobilinogen Urine Negative (Negative); pH Urine 5.5 (4.5-7.5)
--- NOTE | 2021-09-06 23:15 | History and Physical Report ---
DATE OF ADMISSION: 09/06/2021. CHIEF COMPLAINT: Bilateral lower extremity weakness. HISTORY OF PRESENT ILLNESS: This is a 71-year-old female with past medical history significant for hypertension, Raynaud disease, pulmonary hypertension, GERD, dermatomyositis, interstitial lung disease, thought to be secondary to dermatomyositis, COPD, polyneuropathy, history of tobacco abuse, history of CVA, presents with lower extremity weakness. The patient says she has lower extremity weakness for a long time, but in the last couple of weeks, it is getting worse. She has difficulty getting up and once she gets up, she ambulates okay. Because of ongoing weakness, she came to the ER and found to have elevated CPK and elevated troponin. She says on and off, she gets chest pain on the right side, but currently no chest pain, no shortness of breath. She has been having a cough for the last 2 months and brings up some yellowish phlegm. Denies any fever or chills. No headache, no dizziness, no blurred visions, no runny nose. Has some sore throat. Appetite is okay. No difficulty swallowing. No nausea, no abdominal pain. Normal bowel and bladder movements. Currently, resting comfortably and hemodynamically stable. ALLERGIES: No known drug allergies. PAST MEDICAL HISTORY: As mentioned above. PAST SURGICAL HISTORY: Right carpal tunnel surgery, colonoscopy, EGDs, left shoulder arthritis surgery, laparoscopic cholecystectomy, ligation of oviducts, biopsy of deep muscles. MEDICATIONS: The patient is on aspirin 81 mg p.o. daily, atorvastatin 40 mg p.o. a.m., vitamin D 25 mcg p.o. daily, Plavix 75 mg p.o. daily, doxepin 50-150 mg p.o. at bedtime p.r.n., gabapentin 100 mg p.o. t.i.d., Keppra 500 mg p.o. b.i.d., lisinopril 5 mg p.o. daily, CellCept 1000 mg p.o. b.i.d., Protonix 40 mg p.o. daily. FAMILY HISTORY: Significant for father of melanoma at age 66; mother had CABG x2; aunt and mother had bone cancer. SOCIAL HISTORY: Lives alone. Quit smoking in 2017, smoked 3/4 pack a day for 40 years. No alcohol use. No drug use. REVIEW OF SYSTEMS: As per HPI. Rest of the review of systems is negative. PHYSICAL EXAMINATION: GENERAL: The patient is of moderate build, not in acute distress. VITAL SIGNS: Temperature afebrile, pulse 89, respiratory rate 20, blood pressure when she came in was 61/49, currently 89/45, oxygen 99% on room air. HEENT: Pupils equal, round and reactive to light. Oral mucosa moist. NECK: No JVD, no neck masses. CARDIOVASCULAR: S1 and S2 heard. Regular rate and rhythm. No murmur, no gallop. RESPIRATORY SYSTEM: Normal AP diameter. No accessory muscle use. No wheezing, no crackles. ABDOMEN: Soft, bowel sounds present, nontender, no distention. CENTRAL NERVOUS SYSTEM: Cranial nerves II-XII grossly intact, nonfocal. EXTREMITIES: No edema, no erythema. LABORATORY DATA: WBC of 9.2, hemoglobin 12.3, hematocrit 40, platelets 330. Sodium 133, potassium 4, chloride 100, bicarbonate 24, BUN 19, creatinine 0.8, serum glucose 103. Lactate 1, calcium 8.5, total bilirubin 0.7, AST 117, ALT 855, alkaline phosphatase 100, total creatine kinase 2467. Troponin I high sensitivity 158. Lipase 16. SARS-CoV-2 rapid test negative. IMAGING: CTA of the chest: No CT evidence for pulmonary embolus. Interstitial fibrotic changes are again seen. No acute chest disease. Hip and pelvic x-ray: No acute findings. CT of the head: No acute findings. Old right-sided infarcts. Chest x-ray: No acute findings. EKG: Sinus rhythm with premature supraventricular complexes, rate of 97, no acute ST-T changes seen. ASSESSMENT AND PLAN: This is a 71-year-old female who presents with bilateral lower extremity weakness. 1. Bilateral lower extremity weakness. The patient has dermatomyositis and chronic weakness but got worse in the last [address] of the head is okay. She has rhabdomyolysis with elevated CK. Getting aggressive fluids. Continue home CellCept. The patient gets IV infusions for dermatomyositis every 4 weeks. We will consult rheumatology in the a.m. 2. Hypotension. Lactic acid is okay. Improved with fluids. Continue with fluids, follow the laboratories. No signs of active infection currently. We will follow UA and culture. 3. Elevated troponin, mostly from rhabdomyolysis. EKG is okay. We will follow the serial enzymes and echocardiogram. If any concern, we will consult cardiology. Currently, has no chest pain. 4. History of cerebrovascular accident. Continue her home aspirin, Plavix and statin. 5. History of seizure. Continue Keppra. 6. History of hypertension. We will hold lisinopril as the patient is having hypotension currently. 7. History of interstitial lung disease and chronic obstructive pulmonary disease. Currently stable. Follow up with pulmonary. 8. History of pulmonary hypertension. We will follow the echocardiogram. 6. Deep venous thrombosis prophylaxis, Lovenox for now. Addendum: Possible UTI started on Rocephin. Will follow cultures. DISPOSITION: Closely monitor in the med-tele. PT/OT prior to discharge. Social service to help with discharge planning. Job ID: [id number] [place]
[2021-09-07] MEDS ORDERED: ACETAMINOPHEN 325 MG TAB PO PRN (01:05)
[2021-09-07] MEDS ORDERED: POLYETHYLENE (MIRALAX) 17 GM PACK PO PRN (01:05)
[2021-09-07] MEDS ORDERED: ONDANSETRON INJ 2 MG/ML 2 ML VIAL IV PRN (01:05)
[2021-09-07] MEDS ORDERED: DOXEPIN HCL 50 MG CAPSULE PO PRN (01:05)
[2021-09-07] MEDS ORDERED: SODIUM CHLORIDE 0.9% 500 ML IV SCH (01:30)
[2021-09-07] MEDS: SODIUM CHLORIDE 0.9% 1000ML 1,000 ML IV SCH ×3 (02:43→17:51)
[2021-09-07] MEDS: ENOXAPARIN INJ 40 MG/0.4 ML SYR SQ SCH (05:51)
[2021-09-07 06:40] LABS: Basophils # (auto) 0.02 K/uL (0-0.2); Basophils % (auto) 0.4 %; Eosinophils # (auto) 0.29 K/uL (0-0.50); Eosinophils % (auto) 6.1 %; Hematocrit (blood only) 33.3 % (34.1-44.9); Hemoglobin 10.1 g/dl (12.0-16.0); Immature Granulocytes # (auto) 0.02 K/uL (0.00-0.02); Immature Granulocytes % (auto) 0.4 %; Lymphocytes # (auto) 0.53 K/uL (1.2-3.4); Lymphocytes % (auto) 11.1 %; Mean Corpuscular Hemoglobin 25.2 pg (25.0-34.0); Mean Corpuscular Hgb Conc 30.3 g/dL (32.0-36.0); Mean Platelet Volume 10.1 fL (9.4-12.3); Monocytes # (auto) 0.25 K/uL (0.24-0.82); Monocytes % (auto) 5.2 %; Neutrophils # (auto) 3.66 K/uL (1.4-6.5); Neutrophils % (auto) 76.8 %; Platelet Count 247 K/uL (130-400); RDW Coefficient of Variation 15.6 % (11.5-14.5); RDW Standard Deviation 47.7 fL (36.4-46.3); Red Blood Count 4.01 M/uL (3.93-5.22); White Blood Count 4.77 K/ul (4.8-10.8)
[2021-09-07 07:19] LABS: Troponin I High Sensitivity 116.5 pg/ml (0-14)
[2021-09-07 07:40] LABS: Calcium 7.2 mg/dl (8.5-10.1); Est GFR (Non-African American) 92.4 ml/min; Magnesium 1.6 mg/dl (1.7-2.4); Potassium 3.3 mmol/L (3.5-5.1)
[2021-09-07] MEDS ORDERED: POTASSIUM CHLORIDE CRTAB 20 MEQ TABCR PO STA (08:01)
[2021-09-07] MEDS ORDERED: ATORVASTATIN 40 MG TAB PO SCH (09:00)
[2021-09-07] MEDS: cefTRIAXone SODIUM 1,000 MG in DEXTROSE 5% 50 ML IV SCH (09:26)
[2021-09-07] MEDS: MAGNESIUM SULFATE / D5W 1 GM/100 ML BAG IV SCH ×3 (09:28→13:19)
[2021-09-07] MEDS: GABAPENTIN 100 MG CAP PO SCH ×3 (09:29→21:29)
[2021-09-07] MEDS: MYCOPHENOLATE MOFETIL 250 MG CAP PO SCH ×2 (09:29→21:29)
[2021-09-07] MEDS: levETIRAcetam 500 MG TAB PO SCH ×2 (09:29→21:29)
[2021-09-07] MEDS: PANTOprazole 40 MG TAB PO SCH (09:29)
[2021-09-07] MEDS: ASPIRIN 81 MG ECTAB PO SCH (09:29)
[2021-09-07] MEDS: CHOLECALCIFEROL 1,000 UNITS 25 MCG TAB PO SCH (09:29)
[2021-09-07] MEDS: CLOPIDOGREL BISULFATE 75 MG TAB PO SCH (09:29)
--- NOTE | 2021-09-07 11:28 | Electrocardiogram Report ---
Test Reason : Blood Pressure : / mmHG Vent. Rate : 079 BPM Atrial Rate : 079 BPM P-R Int : 242 ms QRS Dur : 094 ms QT Int : 400 ms P-R-T Axes : 037 -39 038 degrees QTc Int : 458 ms Sinus rhythm with 1st degree A-V block Left axis deviation Voltage criteria for left ventricular hypertrophy Inferior infarct , age undetermined Anterolateral infarct (cited on or before 06-SEP-2021) Abnormal ECG When compared with ECG of 06-SEP-2021 16:18, (unconfirmed) Premature supraventricular complexes are no longer Present SD interval has increased Inferior infarct is now Present Confirmed by Avery Humphrey ([id number]) on 09/07/2021 11:27:58 AM Referred By: REFERRED SELF Confirmed By:Torres Humphrey
--- NOTE | 2021-09-07 11:47 | Electrocardiogram Report ---
Test Reason : Blood Pressure : / mmHG Vent. Rate : 097 BPM Atrial Rate : 097 BPM P-R Int : 168 ms QRS Dur : 096 ms QT Int : 354 ms P-R-T Axes : 033 -38 065 degrees QTc Int : 449 ms Sinus rhythm with Premature supraventricular complexes Left axis deviation Voltage criteria for left ventricular hypertrophy Old anterior WV Possible Lateral infarct , age undetermined Abnormal ECG When compared with ECG of 26-AUG-2020 21:30, Borderline criteria for Lateral infarct are now Present Confirmed by Avery Humphrey ([id number]) on 09/07/2021 11:47:28 AM Referred By: REFERRED SELF Confirmed By:Torres Humphrey
[2021-09-07] MEDS: METOPROLOL SUCC 25MG EXT REL TAB PO SCH (14:36)
--- NOTE | 2021-09-07 14:38 | Cardiology Consultation ---
Date of Consultation September 07, 2021 Assessment & Plan (1) Dermatomyositis: (2) Elevated troponin: (3) Weakness: (4) Rhabdomyolysis: (5) Atrial ectopy: Plan Patient admitted for worsening weakness of the lower extremities. Difficult to determine how long she was on the floor when EMS was summoned. On admission she was found to have elevated CK and minimally elevated HS troponin, possibly rhabdomyolysis. She had no chest pain on admission. No acute EKG changes. Repeat troponin trending downward. Echo without wall motion abnormalities. Agree with IV fluids. Rheum consult, as she also has dermatomyositis and weakness could be flare of condition? Supplement potassium and magnesium. Added low dose metoprolol succinate 12.5 mg daily to aid with atrial ectopy. Recommend PT/OT. Recommend case management for possible discharge planning. Apparently office of aging was contacted regarding condition of patient's home status upon EMS arrival. Discussed with Dr. Devine. Supervising Physician Co-Signing Physician Notes 71-year-old female admitted with rhabdomyolysis. Denies chest pain or shortness of breath. Telemetry reveals sinus rhythm. Denies orthopnea or PND. Carries history of dermatomyositis. PE: VSS. Gen: NAD, AAOx3. Heart: Regular, normal S1-S2. No murmur. Lungs: Diminished breath sounds at the right base. Bilateral crackles. Abdomen: Soft nontender no rebound or guarding. Extremities: No edema. A/P: Agree with above PA-C history, physical exam, assessment and plan. Elevated troponin likely related to rhabdomyolysis. Will add low-dose beta- armani for treatment of supraventricular ectopy. History of Present Illness Reason for Consultation: weakness; elevated troponin Requesting Physician: Dr. Moya Attending Physician: Zoey Moya MD History of Present Illness Patient is an 71-year-old female who presented to [facility] after summoning EMS to her home due to persistent weakness. Apparently EMS found her on the floor. She believes she was sitting on the floor for several hours but this may have been quite longer. She is not the best historian. History includes COPD and interstitial lung disease, dermatomyositis, hypertension, dyslipidemia, and prior CVA in 2020 and possible seizure disorder after CVA. She denies history of cardiac problems or issues. No prior diagnosis of CAD, IN, CHF, arrhythmias, or valvular disease. She reports progressive weakness for several weeks. She denies significant falls or injuries. No LOC. NO chest pain or dyspnea. Upon arrival to ER, troponin HS mildly elevated. CK also elevated suggesting rhabdomyolysis. She was started on IV fluids. No acute EKG changes noted and she denied chest pain since admission. She continues to report b/l leg weakness and difficulty ambulating in room. She lives alone. Allergies Allergy/AdvReac Type Severity Reaction Status Date / Time No Known Allergies Allergy Verified 09/06/21 21:10 Home Medications Medication Instructions Recorded Confirmed Type doxepin 50 mg capsule 50 - 150 mg PO HS PRN Sleep 12/03/18 09/06/21 History gabapentin 100 mg capsule 100 mg PO TID 12/03/18 09/06/21 History lisinopril 5 mg tablet 5 mg PO DAILY 12/03/18 09/06/21 History mycophenolate mofetil 500 mg tablet 1,000 mg PO BID 12/03/18 09/06/21 History cholecalciferol (vitamin D3) 25 25 mcg PO DAILY 03/27/19 09/06/21 History mcg (1,000 unit) tablet aspirin 81 mg tablet,delayed 81 mg PO QAM #90 tabs 08/30/20 09/06/21 Rx release atorvastatin 40 mg tablet 40 mg PO QAM #30 tabs 08/30/20 09/06/21 Rx clopidogrel 75 mg tablet (Plavix) 75 mg PO DAILY #30 tabs 08/30/20 09/06/21 Rx levetiracetam 500 mg tablet 500 mg PO BID #60 tabs 08/30/20 09/06/21 Rx (Keppra) pantoprazole 40 mg tablet,delayed 40 mg PO DAILY 09/06/21 09/06/21 History release cefdinir 300 mg capsule 300 mg PO BID 3 days #6 caps 09/08/21 Rx magnesium 200 mg tablet 200 mg PO BID 10 days #20 tabs 09/08/21 Rx metoprolol succinate 25 mg 12.5 mg PO QAM #15 tabs 09/08/21 Rx tablet,extended release 24 hr potassium chloride 10 mEq 10 meq PO DAILY 10 days #10 tabs 09/08/21 Rx tablet,extended release prednisone 20 mg tablet 40 mg PO DAILY 10 days #20 tabs 07/14/22 Rx Patient History Surgical History History of hysterectomy Social History Smoking Status: Former smoker Tobacco Type: Cigarettes Second Hand Exposure: No; Do You Dip or Chew Tobacco: No; Tobacco Cessation Education Requested by Patient: No Hx Alcohol Use: No Hx Substance Use: No Preferred Language: [place]ese Communication Ability: Effective Health Counselor Required: No Beliefs That Will Affect Care: None marital status: Single Current Living Situation: Alone Other Information That Helps Us Care for You: No Feels Safe at Home: Yes Safety Concerns: Feels Safe At This Time Assistive Devices: None Review of Systems Review of Systems: All systems reviewed & are unremarkable except as noted in HPI & below Physical Exam Constitutional: WD/WN, vitals as above Neck: trachea midline, no thyromegaly Cardiovascular: Rate/Rhythm: regular rate and regular rhythm (occ ectopy) Heart Sounds: no murmur Palpation: normal PMI Vessels: no JVD Extremities: no edema Gastrointestinal (Abdomen): normal bowel sounds, soft, nontender, no hepatosplenomegaly Skin: no rashes, warm and dry Neurologic: PERRL, EOMI, accommodation nl, no face palsy, no dysarthria Psychiatric: A+Ox3, euthymic affect Results & Data ([facility]) Vital Signs (Past 12 Hours) Vital Signs Temp Pulse Pulse Pulse Resp BP BP 09/07/21 12:23 36.7 C 82 16 126/69 68/50 L 09/07/21 07:00 76 09/07/21 07:28 36.8 C 77 16 142/64 H 87/51 L 09/07/21 05:42 145/71 H 89/50 L 09/07/21 04:00 36.5 C 78 16 79/60 L Pulse Ox O2 Del Method 09/07/21 12:23 99 Room Air 09/07/21 07:00 09/07/21 07:28 99 Room Air 09/07/21 05:42 09/07/21 04:00 97 Room Air Laboratory Results Laboratory Results WBC 4.77 K/ul (4.8-10.8) L 09/07/21 05:56 RBC 4.01 M/uL (3.93-5.22) 09/07/21 05:56 Hgb 10.1 g/dl (12.0-16.0) L 09/07/21 05:56 Hct 33.3 % (34.1-44.9) L 09/07/21 05:56 MCV 83.0 fL (80.0-100.0) 09/07/21 05:56 MCH 25.2 pg (25.0-34.0) 09/07/21 05:56 MCHC 30.3 g/dL (32.0-36.0) L 09/07/21 05:56 RDW Std Deviation 47.7 fL (36.4-46.3) H 09/07/21 05:56 RDW Coeff of Myra 15.6 % (11.5-14.5) H 09/07/21 05:56 Plt Count 247 K/uL (130-400) 09/07/21 05:56 MPV 10.1 fL (9.4-12.3) 09/07/21 05:56 Immature Gran % (Auto) 0.4 % 09/07/21 05:56 Neut % (Auto) 76.8 % 09/07/21 05:56 Lymph % (Auto) 11.1 % 09/07/21 05:56 [place] % (Auto) 5.2 % 09/07/21 05:56 Eos % (Auto) 6.1 % 09/07/21 05:56 Baso % (Auto) 0.4 % 09/07/21 05:56 Neut # (Auto) 3.66 K/uL (1.4-6.5) 09/07/21 05:56 Lymph # (Auto) 0.53 K/uL (1.2-3.4) L 09/07/21 05:56 [place] # (Auto) 0.25 K/uL (0.24-0.82) 09/07/21 05:56 Eos # (Auto) 0.29 K/uL (0-0.50) 09/07/21 05:56 Baso # (Auto) 0.02 K/uL (0-0.2) 09/07/21 05:56 Immature Gran # (Auto) 0.02 K/uL (0.00-0.02) 09/07/21 05:56 Sodium 138 mmol/L (136-145) 09/07/21 05:56 Potassium 3.3 mmol/L (3.5-5.1) L 09/07/21 05:56 Chloride 109 mmol/L (98-107) H 09/07/21 05:56 Carbon Dioxide 23 mmol/L (21-32) 09/07/21 05:56 Anion Gap 6 (3-11) 09/07/21 05:56 BUN 15 mg/dl (6-23) 09/07/21 05:56 Creatinine 0.60 mg/dl (0.6-1.2) 09/07/21 05:56 Est Cr Clr Drug Dosing 81.0 ml/min 09/07/21 05:56 Est GFR ( Amer) 107.0 ml/min 09/07/21 05:56 Est GFR (Non-Af Amer) 92.4 ml/min 09/07/21 05:56 BUN/Creatinine Ratio 25.0 (10-20) H 09/07/21 05:56 Glucose 71 mg/dl (70-99(Fasting)) 09/07/21 05:56 Lactate 1.0 mmol/L (0.4-2.0) 09/06/21 16:30 Calcium 7.2 mg/dl (8.5-10.1) L 09/07/21 05:56 Magnesium 1.6 mg/dl (1.7-2.4) L 09/07/21 05:56 Total Bilirubin 0.7 mg/dl (0.2-1.0) 09/06/21 16:28 AST 117 U/L (13-39) H 09/06/21 16:28 ALT 55 U/L (7-52) H 09/06/21 16:28 Alkaline Phosphatase 100 U/L (34-104) 09/06/21 16:28 Total Creatine Kinase 1320 U/L (26-192) H 09/07/21 05:56 Troponin I High Sens 92.6 pg/ml (0-14) H* D 09/07/21 11:15 Total Protein 6.1 gm/dl (6.0-8.3) 09/06/21 16:28 Albumin 3.0 gm/dl (3.4-5.0) L 09/06/21 16:28 Globulin 3.1 gm/dl (2.5-4.0) 09/06/21 16:28 Albumin/Globulin Ratio 1.0 (0.9-2) 09/06/21 16:28 Lipase 16 U/L (11-82) 09/06/21 16:28 Procalcitonin 0.13 ng/ml (0-0.5) 09/07/21 05:56 Urine Color Yellow 09/06/21 22:41 Urine Appearance Clear (Clear) 09/06/21 22:41 Urine pH 5.5 (4.5-7.5) 09/06/21 22:41 Ur Specific Logan 1.016 (1.000-1.030) 09/06/21 22:41 Urine Protein Negative (Negative) 09/06/21 22:41 Urine Glucose (UA) Negative (Negative) 09/06/21 22:41 Urine Ketones Negative (Negative) 09/06/21 22:41 Urine Blood Negative (Negative) 09/06/21 22:41 Urine Nitrite Negative (Negative) 09/06/21 22:41 Urine Bilirubin Negative (Negative) 09/06/21 22:41 Urine Urobilinogen Negative (Negative) 09/06/21 22:41 Ur Leukocyte Esterase Trace (Negative) H 09/06/21 22:41 Urine WBC (Auto) 1-5 /hpf (0-5) 09/06/21 22:41 Urine RBC (Auto) 0-4 /hpf (0-4) 09/06/21 22:41 U Hyaline Cast (Auto) 0 /lpf (0-5) 09/06/21 22:41 U Epithel Cells (Auto) 10-20 /lpf (0-5) H 09/06/21 22:41 Urine Bacteria (Auto) 1+ (Negative) H 09/06/21 22:41 SARS-CoV-2 (PCR) Cancelled 09/06/21 21:26 SARS-CoV-2, RNA, NAAT NEGATIVE (NEGATIVE) 09/06/21 21:26 Impressions Chest X-Ray 09/06/21 16:18 SINGLE VIEW CHEST CLINICAL HISTORY: Generalized weakness. FINDINGS: An AP, portable, upright chest radiograph is compared to study dated 08/26/2020 and correlated with chest CT dated 08/28/2020. The cardiomediastinal silhouette is unremarkable noting atherosclerotic calcification of the thoracic aorta. There are low lung volumes. Emphysema and chronic interstitial thickening is similar to previous. There is evidence of superimposed chronic interstitial lung disease. Dependent airspace opacities likely represent scarring/atelectasis. No large pleural effusion or pneumothorax is seen. The skeletal structures are osteopenic. The bony thorax is grossly intact. Arthritic change is seen in the shoulders. Cholecystectomy clips are noted in the right upper quadrant. IMPRESSION: 1. Low lung volumes with emphysema and changes of superimposed chronic interstitial lung disease are similar to previous. 2. Dependent opacities likely represent scarring/atelectasis. Clinical correlation will be required. ACT 112: Negative or not required by law. Electronically signed by: Ziyad Estrella M.D. 09/06/2021 4:[address] 09/06/21 16:19 CT head/brain wo con CLINICAL HISTORY: fall . Weakness. Altered mental status and confusion COMPARISON STUDY: 03/31/2020 CT DOSE: 729.78 mGycm TECHNIQUE: Standard CT of the Brain was performed without IV contrast. A dose lowering technique was utilized adhering to the principles of ALARA. FINDINGS: Extraaxial space: There is no evidence for subdural hematoma. There are no extra-axial fluid collections. Ventricles and cisterns: The ventricles are mildly dilated bilaterally. There is no evidence for midline shift or mass effect. Parenchyma: There is no subarachnoid or intraparenchymal hemorrhage. There is no evidence for an acute infarct or cerebral edema. Patchy areas of low attenuation are again seen involving the right frontal parietal lobe and right parieto- occipital lobe. These are most characteristic of old infarcts. There is mild cerebral cortical atrophy and decreased attenuation in the periventricular white matter representing remote small vessel disease. There are no gross mass lesions. Osseous structures: There is no evidence for an acute fracture. The visualized paranasal sinuses are clear. The mastoid air cells are clear bilaterally. Soft tissues: There is no evidence for focal soft tissue swelling. IMPRESSION: 1. No acute intracerebral pathology. 2. Old right-sided infarcts. 3. Cerebral cortical atrophy and remote small vessel disease. ACT 112: Negative or not required by law. Electronically signed by: Oliverio Bender M.D. 09/06/2021 5:15 PM Hip/Pelvis X-Ray 09/06/21 16:19 XR hip DAMIEN 2v w pelvis CLINICAL HISTORY: fall, L hip pain. COMPARISON STUDY: No previous studies for comparison. TECHNIQUE: AP pelvis and both hips each two views FINDINGS: Bones: There is no evidence for an acute fracture or dislocation. There is no lytic or blastic lesion. Joints: The joint spaces are maintained. The bones are in anatomic alignment. Soft tissues: There is no focal soft tissue abnormality. There is no radiopaque foreign body. IMPRESSION: 1. No acute osseous pathology. ACT 112: Negative or not required by law. Electronically signed by: Oliverio Bender M.D. 09/06/2021 4:47 PM Chest CTA 09/06/21 17:37 CT angio chest PE protocol CLINICAL HISTORY: Weakness and shortness of breath COMPARISON STUDY: CTA chest from 08/27/2020 and portable chest from 09/06/2021 CT DOSE: 251.99 mGy.cm TECHNIQUE: CT Angio of the chest was performed.followed by image post processing with coronal, and sagittal MIP reformats. Contrast Volume: Optiray 320, 120 ml FINDINGS: Vasculature: There is homogeneous perfusion of the pulmonary vasculature bilaterally. No intraluminal filling defects or evidence for pulmonary embolus is seen. Airway: The airway is clear. No endobronchial lesion is identified. Lungs: Compared to the previous examination, chronic interstitial fibrotic ch anges are present particularly involving the lung bases bilaterally, right greater than left. The lungs are otherwise clear of acute alveolar opacities, air bronchograms or pulmonary nodules. Pleura: There is no evidence for pleural effusion. There is no evidence for pneumothorax. Mediastinum: There is no evidence for pathologic adenopathy. The heart is enlarged. There is coronary artery calcification. There is again mild fusiform aneurysmal dilatation of the ascending thoracic aorta which measures 3.8 cm on the current study. There is again evidence for extensive atherosclerotic calcification of the aortic arch and origin of the great vessels. 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 There is no evidence for pericardial effusion. Upper abdomen:The adrenal glands are normal bilaterally. There is a small hiatal hernia. There is also evidence for hepatosplenomegaly. Osseous structures: There is no acute osseous pathology. Impression: 1. No CTA evidence for pulmonary embolus. 2. Interstitial fibrotic changes are again seen involving both lungs, right greater than left. 3. Otherwise, no acute chest disease. 4. Additional chronic changes are again seen as delineated above. ACT 112: Negative or not required by law. Electronically signed by: Oliverio Bender M.D. 09/06/2021 7:56 PM Diagnostic Findings Telemetry reviewed: NSR with frequent PAC's. EKGs reviewed - NSR with PAC's Poor R wave progression. No acute ischemic changes on serial EKG's Echo report reviewed - Compared to prior study, no significant changes noted. LVEF 60-65% Mild concentric LVH Basal septum is thickened and angulated consistent with sigmoid spetum. LV wall motion is normal. Grade I diastolic dysfunction aortic valve sclerosis without significant aortic valvular stenosis Trace TR Estimated pulm pressure 39 mmHg Medications Administered Current Inpatient Medications Acetaminophen (Acetaminophen 325 Mg Tab) 650 mg PO Q4H PRN PRN Reason: Pain or Fever Stop: 10/07/21 01:04 Aspirin (Aspirin 81 Mg Ectab) 81 mg PO QAM [facility] Stop: 10/07/21 08:59 Last Admin: 09/07/21 09:29 Dose: 81 mg Atorvastatin Calcium (Atorvastatin 40 Mg Tab) 40 mg PO QAM [facility] Stop: 10/07/21 08:59 Clopidogrel Bisulfate (Clopidogrel Bisulfate 75 Mg Tab) 75 mg PO DAILY [facility] Stop: 10/07/21 08:59 Last Admin: 09/07/21 09:29 Dose: 75 mg Doxepin HCl (Doxepin Hcl 50 Mg Capsule) 50 mg PO HS PRN PRN Reason: Sleep Stop: 10/07/21 01:04 Last Admin: 09/07/21 09:29 Dose: 50 mg Enoxaparin Sodium (Enoxaparin Inj 40 Mg/0.4 Ml Syr) 40 mg SQ Q24H JONATHAN Stop: 10/07/21 05:59 Last Admin: 09/07/21 05:51 Dose: 40 mg Gabapentin (Gabapentin 100 Mg Cap) 100 mg PO TID [facility] Stop: 10/07/21 08:59 Last Admin: 09/07/21 14:46 Dose: 100 mg Sodium Chloride (Nss 1000ml) 1,000 mls @ 125 mls/hr IV .Q8H [facility] Stop: 10/07/21 01:04 Last Admin: 09/07/21 09:26 Dose: 125 mls/hr Ceftriaxone Sodium 1,000 mg/ (Dextrose) 60 mls @ 100 mls/hr IV Q24H [facility]; Protocol Stop: 09/17/21 07:29 Last Infusion: 09/07/21 10:07 Dose: Infused Levetiracetam (Levetiracetam 500 Mg Tab) 500 mg PO BID JONATHAN Stop: 10/07/21 08:59 Last Admin: 09/07/21 09:29 Dose: 500 mg Metoprolol Succinate (Metoprolol Succ 25mg Ext Rel Tab) 12.5 mg PO QAM JONATHAN Stop: 10/07/21 13:14 Last Admin: 09/07/21 14:36 Dose: 12.5 mg Mycophenolate Mofetil (Mycophenolate Mofetil 250 Mg Cap) 1,000 mg PO BID JONATHAN Stop: 10/07/21 08:59 Last Admin: 09/07/21 09:29 Dose: 1,000 mg Ondansetron HCl (Ondansetron Inj 2 Mg/Ml 2 Ml Vial) 4 mg IV Q6H PRN PRN Reason: Nausea Stop: 10/07/21 01:04 Pantoprazole Sodium (Pantoprazole 40 Mg Tab) 40 mg PO DAILY JONATHAN Stop: 10/07/21 08:59 Last Admin: 09/07/21 09:29 Dose: 40 mg Polyethylene Glycol (Polyethylene (Miralax) 17 Gm Pack) 17 gm PO DAILY PRN PRN Reason: Constipation Stop: 10/07/21 01:04 Vitamin D (Cholecalciferol 1,000 Units 25 Mcg Tab) 1,000 units PO DAILY JONATHAN Stop: 10/07/21 08:59 Last Admin: 09/07/21 09:29 Dose: 1,000 units
[2021-09-07] MEDS ORDERED: POTASSIUM CHLORIDE 20 MEQ/15 ML UDC PO STA (14:51)
--- NOTE | 2021-09-07 15:35 | Hospitalist Progress Note ---
Date of Service September 07, 2021 Assessment & Plan (1) Weakness: (2) Rhabdomyolysis: Plan 71-year-old lady with PMH HTN, Raynaud's disease, pulmonary HTN, GERD, dermatomyositis, ILD thought 2/2 dermatomyositis, COPD, polyneuropathy, past tobacco abuse, CVA presented 09/06 with a complaint of lower extremity weakness. Patient does have lower extremity weakness on and off due to her history of dermatomyositis, she follows rheumatology as outpatient, reported her weakness is around the same to me but was reported to have increased BLE weakness on the day of arrival with fall in prior documentation. She does report she had nausea/vomiting/diarrhea for around 3 weeks which resolved 4 days ago prior to arrival. She is being managed for the following: #. BLE weakness #. Fall #. Rhabdomyolysis Patient reported to have increased BLE weakness leading to fall on the day of arrival. Admitting CXR/CT head/hip pelvis x-ray/CTA chest with no acute findings. Chest imaging with chronic interstitial lung changes. Patient does have dermatomyositis, is on CellCept and gets IV infusion for dermatomyositis every 4 weeks, appears that patient had not taken her infusion since June and hence she might be experiencing more weakness. Discussed with rheumatology Dr. Jon 09/07, plan to start her on prednisone 40 Mg daily and then follow-up with Dr. Moncada as an outpatient. She will need her IV infusion is started with rheumatology as outpatient. Patient on pantoprazole. CPK was elevated at presentation. Trending down. Continue with IV fluid for now. CPK in AM. PT/OT. Fall precaution. CM to assist with DC planning. #. Hypotension: Lactic acid okay, Pro-Ismael negative. improved with fluids, continue with IV fluid for now. Hold antihypertensives, resume when able. #. UTI: Continue Rocephin 09/07, follow-up final culture. #. Elevated troponin, downtrending, serial EKG with increased NM interval, cardiology evaluated, appreciate recommendation. Likely from rhabdomyolysis. Patient without chest pain. #. Other chronic medical conditions: CVA, seizure, HTN, interstitial lung disease, COPD, pulmonary hypertension. Continue with/resume home meds as and when appropriate. #. DVT prophylaxis: Lovenox #. Disposition: Should be able to be discharged on oral prednisone to be followed with rheumatology as outpatient in next 1 to 2 days, pending PT/OT eval. Admission and Anticipated Discharge Date Admission Date: September 06, 2021 Subjective Patient seen and examined at bedside as a follow-up for bilateral lower extremity weakness, rhabdomyolysis, hypotension and elevated troponin. Patient was sitting up in bed, on room air, NAD, patient denies any new acute events overnight. Patient n.p.o. in a.m., cardiology evaluated, will put her on diet. Patient reports moving bowel. Patient denies any headache/dizziness/sore throat/chest pain/belly pain/other review of symptoms. Patient reports having nausea/vomiting/diarrhea since 1 month ago [employer] up till 4 days ago [employer], currently without any of those symptoms. Patient reports her weakness in the lower extremities has been on and off and is about the baseline. Physical Exam Physical Exam: GENERAL: Alert and oriented x3. NAD, on RA. HEENT: No pallor, no icterus. Pupils equal, round and reactive to light. Oral mucosa moist. NECK: No JVD, no neck masses. HEART: S1 and S2 heard. Regular rate and rhythm. systolic murmur at aortic and pulmonic area, no gallop. RESPIRATORY SYSTEM: Normal AP diameter. No accessory muscle use. No wheezing, crackles mid and basal b/l. ABDOMEN: Soft, bowel sounds present, nontender, no distention. CENTRAL NERVOUS SYSTEM: No facial droop. Speech is clear. Obeys simple commands. Moves extremities. Power good. EXTREMITIES: No edema, no erythema seen. Results & Data Results & Data ([facility]) Vital Signs (Past 12 Hours) Vital Signs Temp Pulse Pulse Pulse Resp BP BP 09/07/21 12:23 36.7 C 82 16 126/69 68/50 L 09/07/21 07:00 76 09/07/21 07:28 36.8 C 77 16 142/64 H 87/51 L 09/07/21 05:42 145/71 H 89/50 L 09/07/21 04:00 36.5 C 78 16 79/60 L Pulse Ox O2 Del Method 09/07/21 12:23 99 Room Air 09/07/21 07:00 09/07/21 07:28 99 Room Air 09/07/21 05:42 09/07/21 04:00 97 Room Air
[2021-09-07] MEDS ORDERED: predniSONE 20 MG TAB PO STA (15:43)
[2021-09-08] MEDS: ENOXAPARIN INJ 40 MG/0.4 ML SYR SQ SCH (06:15)
[2021-09-08 07:01] LABS: Hematocrit (blood only) 33.1 % (34.1-44.9); Mean Corpuscular Hemoglobin 25.6 pg (25.0-34.0); Mean Corpuscular Hgb Conc 30.2 g/dL (32.0-36.0); Mean Corpuscular Volume 84.9 fL (80.0-100.0); Mean Platelet Volume 10.7 fL (9.4-12.3); Platelet Count 258 K/uL (130-400); RDW Coefficient of Variation 15.9 % (11.5-14.5); RDW Standard Deviation 48.7 fL (36.4-46.3); White Blood Count 5.58 K/ul (4.8-10.8)
[2021-09-08 07:45] LABS: BUN Creatinine Ratio 20.8 (10-20); Calcium 7.1 mg/dl (8.5-10.1); Creatinine Clr Calc Pharmacy 90.5 ml/min; Est GFR (African American) 111.5 ml/min; Est GFR (Non-African American) 96.2 ml/min; Magnesium 1.6 mg/dl (1.7-2.4); Phosphorus 2.8 mg/dl (2.5-4.9); Potassium 3.5 mmol/L (3.5-5.1)
[2021-09-08] MEDS: cefTRIAXone SODIUM 1,000 MG in DEXTROSE 5% 50 ML IV SCH (08:29)
[2021-09-08] MEDS: CLOPIDOGREL BISULFATE 75 MG TAB PO SCH (08:30)
[2021-09-08] MEDS: MYCOPHENOLATE MOFETIL 250 MG CAP PO SCH (08:30)
[2021-09-08] MEDS: PANTOprazole 40 MG TAB PO SCH (08:30)
[2021-09-08] MEDS: levETIRAcetam 500 MG TAB PO SCH (08:30)
[2021-09-08] MEDS: GABAPENTIN 100 MG CAP PO SCH (08:31)
[2021-09-08] MEDS: CHOLECALCIFEROL 1,000 UNITS 25 MCG TAB PO SCH (08:31)
[2021-09-08] MEDS: ASPIRIN 81 MG ECTAB PO SCH (08:31)
[2021-09-08] MEDS: METOPROLOL SUCC 25MG EXT REL TAB PO SCH (08:32)
[2021-09-08] MEDS ORDERED: predniSONE 20 MG TAB PO SCH (09:00)
[2021-09-08] MEDS: SODIUM CHLORIDE 0.9% 1000ML 1,000 ML IV SCH (09:21)
[2021-09-08] MEDS ORDERED: POTASSIUM CHLORIDE 20 MEQ/15 ML UDC PO STA (09:23)
[2021-09-08] MEDS: MAGNESIUM SULFATE / D5W 1 GM/100 ML BAG IV SCH ×3 (10:05→13:43)
--- NOTE | 2021-09-08 12:37 | Electrocardiogram Report ---
Test Reason : Blood Pressure : / mmHG Vent. Rate : 079 BPM Atrial Rate : 079 BPM P-R Int : 220 ms QRS Dur : 088 ms QT Int : 382 ms P-R-T Axes : 038 -37 053 degrees QTc Int : 438 ms Sinus rhythm with 1st degree A-V block Left axis deviation Minimal voltage criteria for LVH, may be normal variant possible Inferior infarct (cited on or before 28-JAN-2016) Anterior infarct (cited on or before 06-SEP-2021) Abnormal ECG When compared with ECG of 07-SEP-2021 05:47, No significant change was found Confirmed by Avery Humphrey ([id number]) on 09/08/2021 12:37:00 PM Referred By: REFERRED SELF Confirmed By:Torres Humphrey
--- NOTE | 2021-09-08 13:29 | Discharge Summary ---
Date of Service September 08, 2021 Admission HPI Per Admitting Provider CHIEF COMPLAINT: Bilateral lower extremity weakness. HISTORY OF PRESENT ILLNESS: This is a 71-year-old female with past medical history significant for hypertension, Raynaud disease, pulmonary hypertension, GERD, dermatomyositis, interstitial lung disease, thought to be secondary to dermatomyositis, COPD, polyneuropathy, history of tobacco abuse, history of CVA, presents with lower extremity weakness. The patient says she has lower extremity weakness for a long time, but in the last couple of weeks, it is getting worse. She has difficulty getting up and once she gets up, she ambulates okay. Because of ongoing weakness, she came to the ER and found to have elevated CPK and elevated troponin. She says on and off, she gets chest pain on the right side, but currently no chest pain, no shortness of breath. She has been having a cough for the last 2 months and brings up some yellowish phlegm. Denies any fever or chills. No headache, no dizziness, no blurred visions, no runny nose. Has some sore throat. Appetite is okay. No difficulty swallowing. No nausea, no abdominal pain. Normal bowel and bladder movements. Currently, resting comfortably and hemodynamically stable. ALLERGIES: No known drug allergies. PAST MEDICAL HISTORY: As mentioned above. PAST SURGICAL HISTORY: Right carpal tunnel surgery, colonoscopy, EGDs, left shoulder arthritis surgery, laparoscopic cholecystectomy, ligation of oviducts, biopsy of deep muscles. MEDICATIONS: The patient is on aspirin 81 mg p.o. daily, atorvastatin 40 mg p.o. a.m., vitamin D 25 mcg p.o. daily, Plavix 75 mg p.o. daily, doxepin 50-150 mg p.o. at bedtime p.r.n., gabapentin 100 mg p.o. t.i.d., Keppra 500 mg p.o. b.i.d., lisinopril 5 mg p.o. daily, CellCept 1000 mg p.o. b.i.d., Protonix 40 mg p.o. daily. FAMILY HISTORY: Significant for father of melanoma at age 66; mother had CABG x2; aunt and mother had bone cancer. SOCIAL HISTORY: Lives alone. Quit smoking in 2017, smoked 3/4 pack a day for 40 years. No alcohol use. No drug use. REVIEW OF SYSTEMS: As per HPI. Rest of the review of systems is negative. Admission Exam Per Admitting Provider GENERAL: The patient is of moderate build, not in acute distress. VITAL SIGNS: Temperature afebrile, pulse 89, respiratory rate 20, blood pressure when she came in was 61/49, currently 89/45, oxygen 99% on room air. HEENT: Pupils equal, round and reactive to light. Oral mucosa moist. NECK: No JVD, no neck masses. CARDIOVASCULAR: S1 and S2 heard. Regular rate and rhythm. No murmur, no gallop. RESPIRATORY SYSTEM: Normal AP diameter. No accessory muscle use. No wheezing, no crackles. ABDOMEN: Soft, bowel sounds present, nontender, no distention. CENTRAL NERVOUS SYSTEM: Cranial nerves II-XII grossly intact, nonfocal. EXTREMITIES: No edema, no erythema. Principal Diagnosis Acute on chronic BLE weakness Fall Rhabdomyolysis UTI Discharge Exam GENERAL: Alert and oriented x3. NAD, on RA. HEENT: No pallor, no icterus. Pupils equal, round and reactive to light. Oral mucosa moist. NECK: No JVD, no neck masses. HEART: S1 and S2 heard. Regular rate and rhythm. systolic murmur at aortic and pulmonic area, no gallop. RESPIRATORY SYSTEM: Normal AP diameter. No accessory muscle use. No wheezing, crackles mid and basal b/l. ABDOMEN: Soft, bowel sounds present, nontender, no distention. CENTRAL NERVOUS SYSTEM: No facial droop. Speech is clear. Obeys simple commands. Moves extremities. Power good. EXTREMITIES: No edema, no erythema seen. Discharge Data Allergies Allergy/AdvReac Type Severity Reaction Status Date / Time No Known Allergies Allergy Verified 09/06/21 21:10 Consultations 09/06/21 20:19 ED Decision to Admit Stat 09/07/21 08:00 Consult Rheumatology Routine 09/07/21 08:22 Consult Cardiology Routine Ordered Studies 09/06/21 16:19 CT head/brain wo con Stat 09/06/21 17:37 CT angio chest PE protocol Stat Hospital Course (1) Weakness: (2) Rhabdomyolysis: Plan 71-year-old lady with PMH HTN, Raynaud's disease, pulmonary HTN, GERD, dermatomyositis, ILD thought 2/2 dermatomyositis, COPD, polyneuropathy, past tobacco abuse, CVA presented 09/06 with a complaint of lower extremity weakness. Patient does have lower extremity weakness on and off due to her history of dermatomyositis, she follows rheumatology as outpatient, reported her weakness is around the same to me but was reported to have increased BLE weakness on the day of arrival with fall in prior documentation. She does report she had nausea/vomiting/diarrhea for around 3 weeks which resolved 4 days ago prior to arrival. She was managed for the following: #. BLE weakness #. Fall #. Rhabdomyolysis Patient reported to have increased BLE weakness leading to fall on the day of arrival. Admitting CXR/CT head/hip pelvis x-ray/CTA chest with no acute findings. Chest imaging with chronic interstitial lung changes. Patient does have dermatomyositis, is on CellCept and gets IV infusion for dermatomyositis every 4 weeks, appears that patient had not taken her infusion since June and hence she might be experiencing more weakness. Discussed with rheumatology Dr. Jon 09/07, plan to start her on prednisone 40 Mg daily and then follow-up with Dr. Moncada as an outpatient MARTHA for resuming her monthly infusion. Patient adamant on not starting her infusion during my discussion with her, but agreeable to see Dr. Moncada as soon as possible. Patient to continue with her home dose of pantoprazole. CPK was elevated at presentation. Trending down. It appears that her CPK has been chronically elevated looking at her outpatient chart with CPK of 1325 in March 2021 and 1808 in May 2021. Patient would like to go home, PT recommendation is home with family support. Patient's sister Jolly given a phone call and I went over the discharge instructions with her. #. Blood pressure discrepancy between 2 arms: Chronic and known to the patient, resume home meds. #. UTI: Continue Rocephin 09/07, follow-up final culture. Patient will be discharged on cefdinir for 3 more days. #. Elevated troponin, downtrending, 09/07 echo reviewed. Cardiology evaluated. Patient without chest pain. Likely secondary to rhabdomyolysis. #. Other chronic medical conditions: CVA, seizure, HTN, interstitial lung disease, COPD, pulmonary hypertension. Continue with/resume home meds as and when appropriate. Patient being discharged to home with family support with following instruction at the point of discharge: Follow-up with your primary care physician within a week time. Get your blood work CBC, magnesium level, CMP, CPK level in a week time and have the results forwarded to your primary care physician. You will be discharged on a steroid for 10 days, you will need further discussion about management of your rheumatic disease as soon as possible. Follow-up with rheumatology as soon as possible upon discharge before your steroid prescription runs out. This is very important. Continue to take your home dose of pantoprazole. You are being discharged on magnesium and potassium supplement for 7 to 10 days, you will need further evaluation by your primary care physician whether or not to continue these supplements. Metoprolol has been added while you are in the hospital. You are being discharged on cefdinir for 3 more days for your urinary tract infection. Start taking it from the morning of 09/09/2021. Take your medications as prescribed. Total Time Total Time Spent Total Time Spent (In Minutes): 35 Discharge Plan Discharge Items Patient Disposition: Home - Self-Care Reason For Visit: B/L LEG WEAKNESS Discharge Diagnosis: Acute on chronic BLE weakness Fall Rhabdomyolysis UTI Activity: Resume your previous activity Non-emergency contact: Primary Care Provider Call non-emergency contact if: you have any medication questions, your symptoms worsen and your temperature is above 101 Follow-up/Referrals: Ryan Hatfield MD [Primary Care Provider] - 09/14/21 11:00 am (Date & Time 09/14/2021 11:00 AM Provider Werner Lewis MD Department [facility] ) Shane Hobson MD [Physician] - 11/09/21 9:40 am (Date & Time 11/09/2021 9:40 AM Provider Shane Hobson MD Department Rheumatology [facility] ) Diet: Heart Healthy Addtl Attending Provider Instructions: Follow-up with your primary care physician within a week time. Get your blood work CBC, magnesium level, CMP, CPK level in a week time and have the results forwarded to your primary care physician. You will be discharged on a steroid for 10 days, you will need further discussion about management of your rheumatic disease as soon as possible. Foll ow-up with rheumatology as soon as possible upon discharge before your steroid prescription runs out. This is very important. Continue to take your home dose of pantoprazole. You are being discharged on magnesium and potassium supplement for 7 to 10 days, you will need further evaluation by your primary care physician whether or not to continue these supplements. Metoprolol has been added while you are in the hospital. You are being discharged on cefdinir for 3 more days for your urinary tract infection. Start taking it from the morning of 09/09/2021. Take your medications as prescribed. Pending Studies at Discharge: Yes (Admitting blood and urine culture.) Stand-Alone Forms: My [facility], Smoking Cessation Medications and DC Order Prescriptions: New metoprolol succinate 25 mg Tablet Extended Release 24 Hr 12.5 mg PO QAM Qty: 15 0RF prednisone 20 mg Tablet 40 mg PO DAILY 10 Days Qty: 20 0RF magnesium 200 mg tablet 200 mg PO BID 10 Days Qty: 20 0RF cefdinir 300 mg capsule 300 mg PO BID 3 Days Qty: 6 0RF potassium chloride 10 mEq tablet extended release 10 meq PO DAILY 10 Days Qty: 10 0RF Continued cholecalciferol (vitamin D3) 25 mcg (1,000 unit) tablet 25 mcg PO DAILY doxepin 50 mg capsule 50 - 150 mg PO HS PRN (Reason: Sleep) mycophenolate mofetil 500 mg tablet 1,000 mg PO BID lisinopril 5 mg tablet 5 mg PO DAILY gabapentin 100 mg capsule 100 mg PO TID atorvastatin 40 mg Tablet 40 mg PO QAM Qty: 30 0RF aspirin 81 mg Tablet,Delayed Release (Dr/Ec) 81 mg PO QAM Qty: 90 1RF levetiracetam [Keppra] 500 mg Tablet 500 mg PO BID Qty: 60 0RF clopidogrel [Plavix] 75 mg tablet 75 mg PO DAILY Qty: 30 0RF pantoprazole 40 mg tablet,delayed release (DR/EC) 40 mg PO DAILY Rx Instructions: per dr 1st Discharge Orders: Discharge Order (Routine); Ordered 09/08/21 Ordered By: Zoey Moya Admission Data Admit Date/Time: 09/06/21 22:31 Attending Provider: Zoey Moya Admit Provider: Rakesh Krishnamurthy Primary Care Provider: Ryan Hatfield Other Providers: Rakesh Krishnamurthy ; Shane Hobson ; El Devine
== END 2021-09-08 16:06 | disposition home health service (06) | DRG 558 ==
LOC: ED 16:09 → 2E 22:31

== ENCOUNTER 2021-10-14 00:33 | Inpatient (IN) ==
[2021-10-14] MEDS ORDERED: FUROSEMIDE 40 MG/4 ML VIAL IV ONE (01:50)
[2021-10-14 02:10] LABS: Basophils # (auto) 0.01 K/uL (0-0.2); Basophils % (auto) 0.2 %; Eosinophils # (auto) 0.01 K/uL (0-0.50); Eosinophils % (auto) 0.2 %; Hematocrit (blood only) 34.5 % (34.1-44.9); Hemoglobin 10.4 g/dl (12.0-16.0); Immature Granulocytes # (auto) 0.01 K/uL (0.00-0.02); Immature Granulocytes % (auto) 0.2 %; Lymphocytes # (auto) 0.86 K/uL (1.2-3.4); Lymphocytes % (auto) 14.8 %; Mean Corpuscular Hemoglobin 27.6 pg (25.0-34.0); Mean Corpuscular Hgb Conc 30.1 g/dL (32.0-36.0); Mean Corpuscular Volume 91.5 fL (80.0-100.0); Mean Platelet Volume 12.6 fL (9.4-12.3); Monocytes # (auto) 0.31 K/uL (0.24-0.82); Monocytes % (auto) 5.3 %; Neutrophils # (auto) 4.62 K/uL (1.4-6.5); Neutrophils % (auto) 79.3 %; Platelet Count 154 K/uL (130-400); RDW Coefficient of Variation 18.7 % (11.5-14.5); RDW Standard Deviation 62.1 fL (36.4-46.3); Red Blood Count 3.77 M/uL (3.93-5.22); White Blood Count 5.82 K/ul (4.8-10.8)
[2021-10-14 02:21] LABS: Albumin Globulin Ratio 0.9 (0.9-2); Albumin Level 3.2 gm/dl (3.4-5.0); BUN Creatinine Ratio 31.5 (10-20); Bilirubin,Total 0.9 mg/dl (0.2-1.0); Calcium 8.9 mg/dl (8.5-10.1); Creatinine Clr Calc Pharmacy 68.6 ml/min; Est GFR (African American) 96.7 ml/min; Est GFR (Non-African American) 83.4 ml/min; Globulin 3.7 gm/dl (2.5-4.0); Potassium 3.2 mmol/L (3.5-5.1); Total Protein 6.9 gm/dl (6.0-8.3)
[2021-10-14 02:36] LABS: Troponin I High Sensitivity 336.1 pg/ml (0-14)
[2021-10-14 03:18] LABS: Appearance Urine Clear (Clear); Bacteria Urine Automated Negative (Negative); Bilirubin Urine Negative (Negative); Blood Urine Negative (Negative); Color Urine Yellow; Epithelial Cell Urine Auto >30 /lpf (0-5); Glucose Urine UA Negative (Negative); Ketones Urine Negative (Negative); Leukocyte Esterase Urine 2+ (Negative); Nitrite Urine Negative (Negative); Protein Urine Negative (Negative); RBC Urine Automated 0-4 /hpf (0-4); Specific Gravity Urine 1.008 (1.000-1.030); Urobilinogen Urine Negative (Negative); pH Urine 6.5 (4.5-7.5)
[2021-10-14] MEDS ORDERED: DOXEPIN HCL 50 MG CAPSULE PO PRN (04:52)
[2021-10-14] MEDS ORDERED: NITROGLYCERIN SL 0.4 MG/TAB TAB SL PRN (04:52)
[2021-10-14] MEDS ORDERED: LEVALBUTEROL HCL 1.25 MG/3 ML NEB NEB PRN (04:52)
[2021-10-14] MEDS ORDERED: ACETAMINOPHEN 325 MG TAB PO PRN (04:52)
[2021-10-14] MEDS ORDERED: POLYETHYLENE (MIRALAX) 17 GM PACK PO PRN (04:52)
[2021-10-14 05:36] LABS: BUN Creatinine Ratio 28.2 (10-20); Calcium 8.7 mg/dl (8.5-10.1); Creatinine Clr Calc Pharmacy 64.2 ml/min; Est GFR (African American) 89.3 ml/min; Magnesium 1.6 mg/dl (1.7-2.4); Potassium 2.9 mmol/L (3.5-5.1)
[2021-10-14 05:41] LABS: Troponin I High Sensitivity 316.1 pg/ml (0-14)
[2021-10-14 06:26] LABS: Basophils # (auto) 0.02 K/uL (0-0.2); Basophils % (auto) 0.4 %; Eosinophils # (auto) 0.03 K/uL (0-0.50); Eosinophils % (auto) 0.6 %; Hematocrit (blood only) 34.7 % (34.1-44.9); Hemoglobin 10.5 g/dl (12.0-16.0); Immature Granulocytes # (auto) 0.02 K/uL (0.00-0.02); Immature Granulocytes % (auto) 0.4 %; Lymphocytes % (auto) 16.9 %; Mean Corpuscular Hgb Conc 30.3 g/dL (32.0-36.0); Mean Corpuscular Volume 89.2 fL (80.0-100.0); Monocytes # (auto) 0.42 K/uL (0.24-0.82); Monocytes % (auto) 7.9 %; Neutrophils # (auto) 3.94 K/uL (1.4-6.5); Neutrophils % (auto) 73.8 %; Platelet Count 154 K/uL (130-400); RDW Coefficient of Variation 18.9 % (11.5-14.5); RDW Standard Deviation 61.1 fL (36.4-46.3); Red Blood Count 3.89 M/uL (3.93-5.22); White Blood Count 5.33 K/ul (4.8-10.8)
--- NOTE | 2021-10-14 06:36 | Ultrasound Report ---
BILATERAL LOWER EXTREMITY VENOUS DOPPLER HISTORY: Acute pain and swelling of the lower legs lower ext noni a and mild erythema. DVT? COMPARISON STUDY: Doppler study 05/18/1999 and FINDINGS: There is normal compressibility, flow, and augmentation within the bilateral lower extremit y deep venous systems. Subcutaneous edema of the lower legs. IMPRESSION: No DVT within the right or left lower extremity. ACT 112: Negative or not required by law. Electronically signed by: Kenji Santiago M.D. 10/14/2021 6:33 AM
--- NOTE | 2021-10-14 06:48 | History and Physical Report ---
DATE OF ADMISSION: 10/14/2021. CHIEF COMPLAINT: Shortness of breath. HISTORY OF PRESENT ILLNESS: This is a 71-year-old female with past medical history significant for hypertension, Raynaud disease, pulmonary hypertension, GERD, dermatomyositis, interstitial lung disease, thought to be secondary to dermatomyositis, COPD, polyneuropathy, history of tobacco abuse, history of CVA, who lives alone at home, ambulates with a walker, comes because of shortness of breath. The patient says that last night she was short of breath. She is having cough, brings up some yellowish phlegm. She has lower extremity edema and some pain in the lower extremities. In the ER when she came in, she was saturating 81% on room air, currently on oxygen by nasal cannula 3 liters, she is saturating 92%. The patient denies any chest pain, no headache, no neck pain, no back pain, no abdominal pain, no earache, no runny nose, no sore throat. Appetite is okay. No difficulty swallowing. Denies any fevers. She has normal bowel and bladder movements. Currently, resting comfortably and hemodynamically stable. ALLERGIES: No known drug allergies. PAST MEDICAL HISTORY: As mentioned above. PAST SURGICAL HISTORY: Carpal tunnel surgery right side, colonoscopy, colonoscopy with biopsy, EGDs, left shoulder arthritis surgery, laparoscopic cholecystectomy, ligation of oviducts, deep muscle biopsy. MEDICATIONS: The patient is on aspirin 81 mg p.o. daily, atorvastatin 40 mg p.o. a.m., vitamin D 25 mcg p.o. daily, Plavix 75 mg p.o. daily, doxepin 50-150 mg p.o. at bedtime p.r.n., gabapentin 100 mg p.o. t.i.d., Keppra 500 mg p.o. b.i.d., mycophenolate mofetil 1000 mg p.o. b.i.d., Protonix 40 mg p.o. daily, prednisone 20 mg p.o. daily. FAMILY HISTORY: Significant for father of melanoma at age of 66; mother had CABG, bone cancer. SOCIAL HISTORY: , lives alone. Former smoker, quit in 2017, smoked 3/4 pack a day for 40 years. Alcohol, rarely. No drug use. REVIEW OF SYSTEMS: As per HPI. Rest of review of system is negative. PHYSICAL EXAMINATION: GENERAL: The patient is of moderate build, not in acute distress. VITAL SIGNS: Temperature 36.1, pulse 100, respiratory rate 26, blood pressure 146/91, oxygen 92% on 3 liters. HEENT: Pupils equal, round and reactive to light. Oral mucosa moist. NECK: No JVD or neck masses. CARDIOVASCULAR: S1 and S2 heard. Regular rate and rhythm. No murmur, no gallop. RESPIRATORY SYSTEM: Normal AP diameter. No accessory muscle use. No wheezing. Mild bibasilar coarse crackles. ABDOMEN: Soft, bowel sounds present, nontender, no distention. CENTRAL NERVOUS SYSTEM: Cranial nerves II through XII are grossly intact, nonfocal. EXTREMITIES: Bilateral lower extremity edema present with mild erythematous changes. Slightly more erythematous swelling of left foot. LABORATORY DATA: WBC 5.8, hemoglobin 10.4, hematocrit 34.5, platelets 154. Sodium 139, potassium 3.2, chloride 104, bicarbonate 26, BUN 23, creatinine 0.7, serum glucose 86, calcium 8.9, total bilirubin 0.9, AST 62, ALT 52, alkaline phosphatase 59. Troponin I high sensitivity 336. Urinalysis, +2 leukocyte esterase, bacteria negative. SARS-CoV-2 rapid test negative. IMAGING DATA: Chest x-ray, bibasilar opacities. EKG: Sinus rhythm with premature supraventricular complexes, rate of 97, left axis deviation. ASSESSMENT AND PLAN: This is a 71-year-old female who presents with shortness of breath, lower extremity edema. The patient has interstitial lung disease, not on home oxygen, currently requiring oxygen. 1. Shortness of breath.Hypoxia requiring oxygen.Hx of intersitial lung disease. We will get CT chest. Received a dose of IV Lasix in the ER. We will continue with IV Lasix 40 daily. Nebs prn. Follow echocardiogram and cardiac consult. Closely monitor in tele floor for possible acute diastolic congestive heart failure. 2. Possible pneumonia. We will follow CT chest. Empirically started on Rocephin, doxycycline. 3. Lower extremity edema, possible lower extremity cellulitis. Empirically started on antibiotics as above with Rocephin and doxycycline. Ordered for lower extremity Doppler to rule out DVT. 4. Elevated troponin, mostly demand ischemia. Follow repeat labs. Repeat troponins. Cardiology consulted. 5. History of dermatomyositis. The patient on CellCept Currently on prednisone 20 mg. Taper as per rheumatology. 6. History of seizures: On Keppra. 7. History of cerebrovascular accident: On aspirin, statin and Plavix. 8. History of hypertension: Currently not on any medication. Monitor the blood pressure. 9. Gastroesophageal reflux disease: On Protonix. 10. Deep venous thrombosis prophylaxis: Placed on Lovenox. DISPOSITION: Closely monitor in the tele floor. Level 1 full code. PT, OT prior to discharge. Social service to help with discharge planning. Job ID: [id number] [facility]ENTERStacey
[2021-10-14] MEDS ORDERED: POTASSIUM CHLORIDE CRTAB 20 MEQ TABCR PO STA (07:45)
[2021-10-14] MEDS: cefTRIAXone SODIUM 1,000 MG in DEXTROSE 5% 50 ML IV SCH (08:00)
--- NOTE | 2021-10-14 08:05 | Emergency Department Note ---
Impression & Plan CHF (congestive heart failure), Hypoxia Admit to the [facility] service ED Provider Note NAME: DESHAUN MUELLER AGE: 71 SEX: F ARRIVES VIA: Ambulance INFORMANT: Patient ED PROVIDER(S): Hedy Conley DO CHIEF COMPLAINT: Shortness of breath PLAN: Disposition: Admit to the [facility] Condition: Guarded MEDICAL DECISION MAKING: This is a 71-year-old female patient who presents to the emergency department with significant orthopnea. EMS found the patient with O2 saturations in the 80s on room air. Patient has lower extremity edema to the mid thigh. History of COPD and explains that her doctor has been weaning her from her prednisone. Chest x-ray reveals evidence of significant pulmonary edema with bilateral pleural effusions. Patient was given IV Lasix here in the emergency department. Discussed with the [facility] Hospitalist and they will evaluate for further management. Triage Nursing notes reviewed and agree with them. Prior medical records reviewed Vital Signs: reviewed and remarkable for tachycardia and hypoxia Differential diagnosis: COPD exacerbation, pneumonia, pneumothorax ER treatment provided: IV Lasix Diagnostics interpreted by me: ECG: Normal sinus rhythm at a rate of 97 with PACs. There is left ventricular hypertrophy. There is no ST segment elevation to suggest ischemia. Cardiac Monitoring: Tachycardia at 106. Laboratory studies: See below Imaging studies: As per my interpretation Portable chest x-ray: Bilateral pleural effusions; pulmonary edema HPI: 71/F arrives for evaluation of shortness of breath. Around 11 PM this evening, the patient was watching TV when she became significantly short of br eath. She has noticed that when she goes to lay down, she seems to lose her breath. This is new for her. She also describes significantly cold. ROS: See above HPI for pertinent positives & negatives. A total of 10 systems reviewed and were otherwise negative. PAST MEDICAL HISTORY:Seizure; CVA; COPD; anemia PAST SURGICAL HISTORY:See Below FAMILY HISTORY:See Below SOCIAL HISTORY:See Below HOME MEDICATIONS:See list ALLERGIES:None VITALS:See Below PHYSICAL EXAMINATION: HEENT: Head - normocephalic and atraumatic Pupils are equal, round, and reactive to light. Extraocular eye muscles are intact, and sclera are anicteric. Nose - moist nasal mucosa without discharge. Mouth - moist buccal mucosa. Oropharynx is nonerythematous and there is no tonsillar exudate or edema noted. Neck: Supple; no JVD or cervical Lymphadenopathy. Heart: Regular rate and rhythm. There is a normal S1 and S2 with no murmurs, clicks, or gallops appreciated. Lungs: Diffuse rales in all lung loo Abdomen: Soft, completely nontender, nondistended, with good bowel sounds. There are no palpable pulsatile masses or hepatosplenomegaly. There is no guarding, rigidity, or rebound noted. Extremities: Pitting edema in both lower extremities up to the mid thigh. Skin: warm and dry with good turgor and no rashes. ED COURSE: Times/Reassessments: 0135: Was evaluated in room C9 laboratory studies were drawn as above. A twelve-lead EKG was obtained as described above. An order was placed for continuous cardiac monitoring. The patient was in a sinus tachycardia at 106. Portable chest x-ray was performed. The patient remains on supplemental oxygen. Given 40 mg of IV Lasix. Repeat evaluation, the patient had begun to diurese. I discussed the case with the [facility] Hospitalist and they will evaluate for further management. Hedy Conley DO Past Med/Surg History Surgical History History of hysterectomy Social History Smoking Status: Former smoker Tobacco Type: Cigarettes Second Hand Exposure: No; Hx Alcohol Use: No Hx Substance Use: No Preferred Language: Chinese Communication Ability: Effective Hub Cutter Required: No Beliefs That Will Affect Care: None marital status: Single Current Living Situation: Alone Current Living Situation Comment: At home byself recently enrolled in home health Feels Safe at Home: Yes Safety Concerns: Feels Safe At This Time Assistive Devices: Denture - Upper, Denture - Lower, Glasses and Walker Allergies Allergies Allergy/AdvReac Type Severity Reaction Status Date / Time No Known Allergies Allergy Verified 09/06/21 21:10 Home Meds Home Medications Medication Instructions Recorded Confirmed doxepin 50 mg capsule 50 - 150 mg PO HS PRN Sleep 12/03/18 09/06/21 gabapentin 100 mg capsule 100 mg PO TID 12/03/18 09/06/21 mycophenolate mofetil 500 mg tablet 1,000 mg PO BID 12/03/18 09/06/21 cholecalciferol (vitamin D3) 25 25 mcg PO DAILY 03/27/19 09/06/21 mcg (1,000 unit) tablet pantoprazole 40 mg tablet,delayed 40 mg PO DAILY 09/06/21 09/06/21 release prednisone 20 mg tablet 20 mg PO DAILY 10/14/21 10/14/21 Previous Rx's Medication Instructions Recorded aspirin 81 mg tablet,delayed 81 mg PO QAM #90 tabs 08/30/20 release atorvastatin 40 mg tablet 40 mg PO QAM #30 tabs 08/30/20 clopidogrel 75 mg tablet (Plavix) 75 mg PO DAILY #30 tabs 08/30/20 levetiracetam 500 mg tablet 500 mg PO BID #60 tabs 08/30/20 (Keppra) Results & Data (ED) Vital Signs Vital Signs - 24 hr 10/14/21 00:43 10/14/21 01:15 10/14/21 01:38 Temperature 36.1 C L Temperature Source Axillary Pulse Rate 94 H Pulse Rate from SpO2 Sensor Respiratory Rate 18 Respiratory Effort / Characteristics Non-Labored Spontaneous Non-Labored Spontaneous Respiratory Depth Normal Normal Respiratory Pattern Regular Regular Blood Pressure 170/116 H Blood Pressure Mean 134 Pulse Oximetry 100 86 L Oxygen Delivery Method Room Air Room Air Oxygen Flow Rate 3 0 Sepsis Recent Fever Within 48 Hours No Sepsis New/Unexplained Change in Mental Status No Sepsis Action Taken by Nursing No Action Required Oxygen Flow Rate - Titration 3 Pulse Oximetry Post Tiitration 98 10/14/21 01:39 10/14/21 00:40 10/14/21 01:02 Temperature Temperature Source Pulse Rate 107 H 89 Pulse Rate from SpO2 Sensor 105 H 92 H Respiratory Rate 17 16 Respiratory Effort / Characteristics Respiratory Depth Respiratory Pattern Blood Pressure 126/83 Blood Pressure Mean 97 Pulse Oximetry 96 81 L 97 Oxygen Delivery Method Nasal Cannula Oxygen Flow Rate 3 3 Sepsis Recent Fever Within 48 Hours Sepsis New/Unexplained Change in Mental Status Sepsis Action Taken by Nursing Oxygen Flow Rate - Titration Pulse Oximetry Post Tiitration 10/14/21 01:30 10/14/21 01:30 10/14/21 02:00 Temperature Temperature Source Pulse Rate 91 H 88 Pulse Rate from SpO2 Sensor 91 H 96 H Respiratory Rate 18 17 Respiratory Effort / Characteristics Respiratory Depth Respiratory Pattern Blood Pressure 123/88 128/88 149/93 H Blood Pressure Mean 99 101 111 Pulse Oximetry 96 100 Oxygen Delivery Method Oxygen Flow Rate Sepsis Recent Fever Within 48 Hours Sepsis New/Unexplained Change in Mental Status Sepsis Action Taken by Nursing Oxygen Flow Rate - Titration Pulse Oximetry Post Tiitration 10/14/21 02:30 10/14/21 03:00 10/14/21 03:30 Temperature Temperature Source Pulse Rate 91 H 100 H 92 H Pulse Rate from SpO2 Sensor 108 H 100 H Respiratory Rate 21 26 H 21 Respiratory Effort / Characteristics Respiratory Depth Respiratory Pattern Blood Pressure 146/91 H Blood Pressure Mean 109 Pulse Oximetry 92 Oxygen Delivery Method Oxygen Flow Rate Sepsis Recent Fever Within 48 Hours Sepsis New/Unexplained Change in Mental Status Sepsis Action Taken by Nursing Oxygen Flow Rate - Titration Pulse Oximetry Post Tiitration 10/14/21 03:31 10/14/21 04:00 10/14/21 04:01 Temperature Temperature Source Pulse Rate 87 105 H 100 H Pulse Rate from SpO2 Sensor 87 122 H 103 H Respiratory Rate 21 25 H 24 Respiratory Effort / Characteristics Respiratory Depth Respiratory Pattern Blood Pressure 126/77 Blood Pressure Mean 93 Pulse Oximetry 100 97 98 Oxygen Delivery Method Oxygen Flow Rate Sepsis Recent Fever Within 48 Hours Sepsis New/Unexplained Change in Mental Status Sepsis Action Taken by Nursing Oxygen Flow Rate - Titration Pulse Oximetry Post Tiitration Laboratory Data Result diagrams: 10/14/21 06:09 10/14/21 05:02 Lab Results 10/14/21 10/14/21 10/14/21 Range/Units 00:55 00:58 00:58 WBC 5.82 (4.8-10.8) K/ul RBC 3.77 L (3.93-5.22) M/uL Hgb 10.4 L (12.0-16.0) g/dl Hct 34.5 (34.1-44.9) % MCV 91.5 (80.0-100.0) fL MCH 27.6 (25.0-34.0) pg MCHC 30.1 L (32.0-36.0) g/dL RDW Std Deviation 62.1 H (36.4-46.3) fL RDW Coeff of Myra 18.7 H (11.5-14.5) % Plt Count 154 (130-400) K/uL MPV 12.6 H (9.4-12.3) fL Immature Gran % (Auto) 0.2 % Neut % (Auto) 79.3 % Lymph % (Auto) 14.8 % [place] % (Auto) 5.3 % Eos % (Auto) 0.2 % Baso % (Auto) 0.2 % Neut # (Auto) 4.62 (1.4-6.5) K/uL Lymph # (Auto) 0.86 L (1.2-3.4) K/uL [place] # (Auto) 0.31 (0.24-0.82) K/uL Eos # (Auto) 0.01 (0-0.50) K/uL Baso # (Auto) 0.01 (0-0.2) K/uL Immature Gran # (Auto) 0.01 (0.00-0.02) K/uL Sodium 139 (136-145) mmol/L Potassium 3.2 L (3.5-5.1) mmol/L Chloride 104 (98-107) mmol/L Carbon Dioxide 26 (21-32) mmol/L Anion Gap 9 (3-11) BUN 23 (6-23) mg/dl Creatinine 0.73 (0.6-1.2) mg/dl Est Cr Clr Drug Dosing 68.6 ml/min Est GFR ( Amer) 96.7 ml/min Est GFR (Non-Af Amer) 83.4 ml/min BUN/Creatinine Ratio 31.5 H (10-20) Glucose 86 (70-99(Fasting)) mg/dl Calcium 8.9 (8.5-10.1) mg/dl Total Bilirubin 0.9 (0.2-1.0) mg/dl AST 61 H (13-39) U/L ALT 52 (7-52) U/L Alkaline Phosphatase 59 (34-104) U/L Troponin I High Sens 336.1 H* D (0-14) pg/ml Total Protein 6.9 (6.0-8.3) gm/dl Albumin 3.2 L (3.4-5.0) gm/dl Globulin 3.7 (2.5-4.0) gm/dl Albumin/Globulin Ratio 0.9 (0.9-2) Urine Color Urine Appearance (Clear) Urine pH (4.5-7.5) Ur Specific [place] (1.000-1.030) Urine Protein (Negative) Urine Glucose (UA) (Negative) Urine Ketones (Negative) Urine Blood (Negative) Urine Nitrite (Negative) Urine Bilirubin (Negative) Urine Urobilinogen (Negative) Ur Leukocyte Esterase (Negative) Urine WBC (Auto) (0-5) /hpf Urine RBC (Auto) (0-4) /hpf U Hyaline Cast (Auto) (0-5) /lpf U Epithel Cells (Auto) (0-5) /lpf Urine Bacteria (Auto) (Negative) SARS-CoV-2, RNA, NAAT NEGATIVE (NEGATIVE) 10/14/21 Range/Units 03:00 WBC (4.8-10.8) K/ul RBC (3.93-5.22) M/uL Hgb (12.0-16.0) g/dl Hct (34.1-44.9) % MCV (80.0-100.0) fL MCH (25.0-34.0) pg MCHC (32.0-36.0) g/dL RDW Std Deviation (36.4-46.3) fL RDW Coeff of [place]ra (11.5-14.5) % Plt Count (130-400) K/uL MPV (9.4-12.3) fL Immature Gran % (Auto) % Neut % (Auto) % Lymph % (Auto) % [place] % (Auto) % Eos % (Auto) % Baso % (Auto) % Neut # (Auto) (1.4-6.5) K/uL Lymph # (Auto) (1.2-3.4) K/uL [place] # (Auto) (0.24-0.82) K/uL Eos # (Auto) (0-0.50) K/uL Baso # (Auto) (0-0.2) K/uL Immature Gran # (Auto) (0.00-0.02) K/uL Sodium (136-145) mmol/L Potassium (3.5-5.1) mmol/L Chloride (98-107) mmol/L Carbon Dioxide (21-32) mmol/L Anion Gap (3-11) BUN (6-23) mg/dl Creatinine (0.6-1.2) mg/dl Est Cr Clr Drug Dosing ml/min Est GFR ( Amer) ml/min Est GFR (Non-Af Amer) ml/min BUN/Creatinine Ratio (10-20) Glucose (70-99(Fasting)) mg/dl Calcium (8.5-10.1) mg/dl Total Bilirubin (0.2-1.0) mg/dl AST (13-39) U/L ALT (7-52) U/L Alkaline Phosphatase (34-104) U/L Troponin I High Sens (0-14) pg/ml Total Protein (6.0-8.3) gm/dl Albumin (3.4-5.0) gm/dl Globulin (2.5-4.0) gm/dl Albumin/Globulin Ratio (0.9-2) Urine Color Yellow Urine Appearance Clear (Clear) Urine pH 6.5 (4.5-7.5) Ur Specific [place] 1.008 (1.000-1.030) Urine Protein Negative (Negative) Urine Glucose (UA) Negative (Negative) Urine Ketones Negative (Negative) Urine Blood Negative (Negative) Urine Nitrite Negative (Negative) Urine Bilirubin Negative (Negative) Urine Urobilinogen Negative (Negative) Ur Leukocyte Esterase 2+ H (Negative) Urine WBC (Auto) 5-10 H (0-5) /hpf Urine RBC (Auto) 0-4 (0-4) /hpf U Hyaline Cast (Auto) 1-5 (0-5) /lpf U Epithel Cells (Auto) >30 H (0-5) /lpf Urine Bacteria (Auto) Negative (Negative) SARS-CoV-2, RNA, NAAT (NEGATIVE) Administered Medications Ceftriaxone Sodium 1,000 mg/ (Dextrose) 60 mls @ 100 mls/hr IV Q24H JONATHAN; Protocol Stop: 10/21/21 05:59 Last Admin: 10/14/21 08:00 Dose: 100 mls/hr Documented By: STACEY Discontinued Medications Furosemide (Furosemide 40 Mg/4 Ml Vial) 40 mg IV ONE ONE Stop: 10/14/21 01:51 Last Admin: 10/14/21 02:40 Dose: 40 mg Documented By: BS Discharge Plan Visit Data Chief Complaint: Shortness of Breath/Dyspnea Stated Complaint: SOB, Edema ED Provider: Hedy Conley Discharge Problem: CHF (congestive heart failure), Hypoxia Patient Disposition: Admitted As Inpatient Discharge Instructions Interventions: ED Discharge Assessment Last Done: 10/14/21 04:56 : CHF (congestive heart failure) Qualifiers: Heart failure type: unspecified Heart failure chronicity: acute Qualified Code(s): I50.9 - Heart failure, unspecified
--- NOTE | 2021-10-14 08:42 | XRay Report ---
XR chest 1V portable CLINICAL HISTORY: Dyspnea TECHNIQUE: Single frontal radiograph of the chest was obtained. Comparison: Comparison is made to chest radiograph 09/06/2021 and CTA chest 09/06/2021 FINDINGS: No lines and tubes are seen. The cardiomediastinal silhouette is normal. Reticular interstitial opaci ties are seen. Appearances background, there is faint bibasilar airspace opacity. Blunting of the cos tophrenic angles is unchanged, likely due to scarring although superimposed effusions cannot be entir dev excluded. IMPRESSION: Interval development of faint bibasilar airspace opacities which may represent atelectasis, pneumonia , and/or aspiration. Reticular interstitial opacities are unchanged. ACT 112: Negative or not required by law. Electronically signed by: Xavier Tavares M.D. 10/14/2021 8:40 AM
[2021-10-14] MEDS: POTASSIUM CHLORIDE / WTR 10 MEQ/100 ML PLCT IV SCH ×2 (08:53→10:00)
--- NOTE | 2021-10-14 09:14 | CT Scan Report ---
CT chest diagnostic wo con CLINICAL HISTORY: pneumonia? cough, sob TECHNIQUE: Multidetector row helical CT of the chest was performed. Coronal and sagittal reformations were obtained. Automated dose lowering techniques and/or adjustment according to patient size were u tilized for this exam. CT DOSE: 163.94 mGy.cm Comparison: Comparison is made to CTA chest 09/06/2021, chest radiograph 10/14/[address] chest 022 FINDINGS: Lungs and pleura: Interstitial reticular opacities and bronchiectasis are seen. There is interval dev elopment of consolidative densities in the bilateral lower lungs as well as scattered ground glass op acities throughout. Scattered emphysematous changes are noted. Small bilateral pleural effusions are seen, new from prior. Heart and pericardium: Cardiomegaly is seen with biatrial enlargement. Vessels: The pulmonary trunk is enlarged measuring 33 mm compatible with pulmonary hypertension. Mode rate atherosclerotic disease is seen. The ascending aorta is minimally ectatic measuring 40 mm. Mediastinum and arlette: Subcentimeter lymph nodes are seen. Chest wall and lower neck: Unremarkable. Abdomen: A hiatal hernia is seen. Bones: Degenerative changes in the thoracic spine. IMPRESSION: 1. Interval development of consolidative opacities in the bilateral lung bases and scattered groundg lass opacities which likely reflect infectious/inflammatory process such as pneumonia. 2. Small bilateral pleural effusions are seen, new from prior. 3. Stable interstitial fibrotic/emphysematous changes. 4. Pulmonary hypertension. ACT 112: Negative or not required by law. Electronically signed by: Xavier Tavares M.D. 10/14/2021 9:12 AM
[2021-10-14] MEDS: CHOLECALCIFEROL 1,000 UNITS 25 MCG TAB PO SCH (09:30)
[2021-10-14] MEDS: CLOPIDOGREL BISULFATE 75 MG TAB PO SCH (09:30)
[2021-10-14] MEDS: ASPIRIN 81 MG ECTAB PO SCH (09:30)
[2021-10-14] MEDS: FUROSEMIDE 40 MG/4 ML VIAL IV SCH (09:30)
[2021-10-14] MEDS: DOXYCYCLINE HYCLATE 100 MG CAP PO SCH ×2 (09:30→20:29)
[2021-10-14] MEDS: ATORVASTATIN 40 MG TAB PO SCH (09:30)
[2021-10-14] MEDS: GABAPENTIN 100 MG CAP PO SCH ×3 (09:30→20:26)
[2021-10-14] MEDS: predniSONE 20 MG TAB PO SCH (09:31)
[2021-10-14] MEDS: ENOXAPARIN INJ 40 MG/0.4 ML SYR SQ SCH (09:31)
[2021-10-14] MEDS: MYCOPHENOLATE MOFETIL 250 MG CAP PO SCH ×2 (09:31→20:28)
[2021-10-14] MEDS: MAGNESIUM OXIDE 400 MG TAB PO SCH ×2 (09:31→20:29)
[2021-10-14] MEDS: levETIRAcetam 500 MG TAB PO SCH ×2 (09:31→20:27)
[2021-10-14] MEDS: PANTOprazole 40 MG TAB PO SCH (09:31)
[2021-10-14] MEDS ORDERED: POTASSIUM CHLORIDE CRTAB 20 MEQ TABCR PO ONE (10:06)
--- NOTE | 2021-10-14 10:14 | Cardiology Consultation ---
Date of Consultation October 14, 2021 Assessment & Plan (1) Hypoxia: (2) Interstitial lung disease: (3) Elevated troponin: (4) Anemia: Plan Patient is a 71-year-old female with underlying interstitial lung disease with recent 09/06/2021 hospitalization with flare of dermatomyositis/rhabdomyolysis on immunosuppressive therapy with prednisone and CellCept. Patient not on oxygen supplementation She presents now with worsening dyspnea with increased interstitial markings possible infiltrates on chest x-ray and CT. Component of diastolic heart failure not excluded. Troponins mildly elevated but consistent with past elevations. Underlying coronary disease not excluded given atherosclerosis on CAT scan. Currently mildly tachycardia with frequent atrial ectopy on telemetry EKG without acute changes Chest x-ray and CAT scans notable for significant interstitial lung disease Laboratory studies reflect anemia with hemoglobin decreased by 3 g comparison to outpatient testing 2 weeks prior Recommendations: Treat hypoxia. Exam does not suggest acute left-sided heart failure but moderate lower extremity edema present. Would not give additional Lasix after dose was this morning until reevaluated Patient at risk for atrial arrhythmias and ischemia low-dose beta-armani added potassium supplemented Will likely add low-dose spironolactone/diuretic as part of chronic management Patient will require ongoing pulmonology follow and likely oxygen supplementation at home Will follow closely History of Present Illness Reason for Consultation: Worsening dyspnea Requesting Physician: Dr Krishnamurthy Attending Physician: Jamaal Mathew MD History of Present Illness Patient is a 71-year-old female with ongoing issues which include 1. Dermatomyositis with rhabdomyolysis on prednisone and CellCept 2. Chronic diffuse interstitial lung disease 3. Hypertension 4. Prior CVA 2020 on antiplatelet therapy with clopidogrel 5. 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 Has had slight increase in lower extremity edema. No fevers chills or productive cough. Patient on prednisone for underlying rheumatologic disorder now being tapered. Not on oxygen supplementation chronically. No bleeding difficulties. Appetite is fair with weight trending downward. She denies chest pains, tachypalpitations, syncope or near syncope. She is active to a low level about her home previous difficulties with marked weakness resolved after hospitalization in August with rhabdomyolysis still walking with walker Allergies Allergy/AdvReac Type Severity Reaction Status Date / Time No Known Allergies Allergy Verified 09/06/21 21:10 Home Medications Medication Instructions Recorded Confirmed Type doxepin 50 mg capsule 50 - 150 mg PO HS PRN Sleep 12/03/18 09/06/21 History gabapentin 100 mg capsule 100 mg PO TID 12/03/18 09/06/21 History mycophenolate mofetil 500 mg tablet 1,000 mg PO BID 12/03/18 09/06/21 History cholecalciferol (vitamin D3) 25 25 mcg PO DAILY 03/27/19 09/06/21 History mcg (1,000 unit) tablet aspirin 81 mg tablet,delayed 81 mg PO QAM #90 tabs 08/30/20 09/06/21 Rx release atorvastatin 40 mg tablet 40 mg PO QAM #30 tabs 08/30/20 09/06/21 Rx clopidogrel 75 mg tablet (Plavix) 75 mg PO DAILY #30 tabs 08/30/20 09/06/21 Rx levetiracetam 500 mg tablet 500 mg PO BID #60 tabs 08/30/20 09/06/21 Rx (Keppra) pantoprazole 40 mg tablet,delayed 40 mg PO DAILY 09/06/21 09/06/21 History release prednisone 20 mg tablet 20 mg PO DAILY 10/14/21 10/14/21 History Patient History Surgical History History of hysterectomy Social History Smoking Status: Former smoker Tobacco Type: Cigarettes Second Hand Exposure: No; Hx Alcohol Use: No Hx Substance Use: No Preferred Language: Bahraini Communication Ability: Effective Svp Required: No Beliefs That Will Affect Care: None marital status: Single Current Living Situation: Alone Current Living Situation Comment: At home byself recently enrolled in [employer] [facility] Feels Safe at Home: Yes Safety Concerns: Feels Safe At This Time Assistive Devices: Denture - Upper, Denture - Lower, Glasses and Walker Review of Systems Review of Systems: All systems reviewed & are unremarkable except as noted in HPI & below Physical Exam 2 Constitutional: + ill appearing; no acute distress Eyes: PERRL, conjunctivae normal, anicteric sclerae ENMT: external ear and nose normal, oropharynx normal Neck: trachea midline, no thyromegaly Respiratory: Auscultation: + diminished lung sounds and + crackles Cardiovascular: Rate/Rhythm: regular rate and regular rhythm Heart Sounds: normal S1 and normal S2; no murmur Vessels: no JVD Extremities: + edema (2+ lower extremity edema) Gastrointestinal (Abdomen): normal bowel sounds, soft, nontender, no hepatosplenomegaly Psychiatric: A+Ox3, euthymic affect Results & Data ([facility]) Vital Signs (Past 12 Hours) Vital Signs Temp Pulse Pulse Resp BP Pulse Ox O2 Del Method 10/14/21 05:48 106 H 18 100 Nasal Cannula 10/14/21 04:47 107 H 24 99 10/14/21 04:30 91 H 14 118/84 99 10/14/21 04:01 100 H 24 98 10/14/21 04:00 105 H 25 H 97 10/14/21 03:31 87 21 126/77 100 10/14/21 03:30 92 H 21 10/14/21 03:00 100 H 26 H 10/14/21 02:30 91 H 21 146/91 H 92 10/14/21 02:00 88 17 149/93 H 100 10/14/21 01:30 91 H 18 128/88 96 10/14/21 01:30 123/88 10/14/21 01:02 89 16 126/83 97 10/14/21 00:40 107 H 17 81 L 10/14/21 01:39 96 Nasal Cannula 10/14/21 01:38 86 L Room Air 10/14/21 01:15 10/14/21 00:43 36.1 C L 94 H 18 170/116 H 100 Room Air O2 Flow Rate 10/14/21 05:48 4 10/14/21 04:47 10/14/21 04:30 10/14/21 04:01 10/14/21 04:00 10/14/21 03:31 10/14/21 03:30 10/14/21 03:00 10/14/21 02:30 10/14/21 02:00 10/14/21 01:30 10/14/21 01:30 10/14/21 01:02 3 10/14/21 00:40 10/14/21 01:39 3 10/14/21 01:38 0 10/14/21 01:15 3 10/14/21 00:43 Laboratory Results Laboratory Results - last 24 hr 10/14/21 10/14/21 10/14/21 00:55 00:58 00:58 WBC 5.82 RBC 3.77 L Hgb 10.4 L Hct 34.5 MCV 91.5 MCH 27.6 MCHC 30.1 L RDW Std Deviation 62.1 H RDW Coeff of Myra 18.7 H Plt Count 154 MPV 12.6 H Immature Gran % (Auto) 0.2 Neut % (Auto) 79.3 Lymph % (Auto) 14.8 [place] % (Auto) 5.3 Eos % (Auto) 0.2 Baso % (Auto) 0.2 Neut # (Auto) 4.62 Lymph # (Auto) 0.86 L [place] # (Auto) 0.31 Eos # (Auto) 0.01 Baso # (Auto) 0.01 Immature Gran # (Auto) 0.01 Sodium 139 Potassium 3.2 L Chloride 104 Carbon Dioxide 26 Anion Gap 9 BUN 23 Creatinine 0.73 Est Cr Clr Drug Dosing 68.6 Est GFR ( Amer) 96.7 Est GFR (Non-Af Amer) 83.4 BUN/Creatinine Ratio 31.5 H Glucose 86 Calcium 8.9 Magnesium Total Bilirubin 0.9 AST 61 H ALT 52 Alkaline Phosphatase 59 Troponin I High Sens 336.1 H* D Total Protein 6.9 Albumin 3.2 L Globulin 3.7 Albumin/Globulin Ratio 0.9 Urine Color Urine Appearance Urine pH Ur Specific [place] Urine Protein Urine Glucose (UA) Urine Ketones Urine Blood Urine Nitrite Urine Bilirubin Urine Urobilinogen Ur Leukocyte Esterase Urine WBC (Auto) Urine RBC (Auto) U Hyaline Cast (Auto) U Epithel Cells (Auto) Urine Bacteria (Auto) SARS-CoV-2, RNA, NAAT NEGATIVE 10/14/21 10/14/21 10/14/21 03:00 05:02 06:09 WBC 5.33 RBC 3.89 L Hgb 10.5 L Hct 34.7 MCV 89.2 MCH 27.0 MCHC 30.3 L RDW Std Deviation 61.1 H RDW Coeff of Myra 18.9 H Plt Count 154 MPV 12.0 Immature Gran % (Auto) 0.4 Neut % (Auto) 73.8 Lymph % (Auto) 16.9 [place] % (Auto) 7.9 Eos % (Auto) 0.6 Baso % (Auto) 0.4 Neut # (Auto) 3.94 Lymph # (Auto) 0.90 L [place] # (Auto) 0.42 Eos # (Auto) 0.03 Baso # (Auto) 0.02 Immature Gran # (Auto) 0.02 Sodium 141 Potassium 2.9 L Chloride 106 Carbon Dioxide 27 Anion Gap 8 BUN 22 Creatinine 0.78 Est Cr Clr Drug Dosing 64.2 Est GFR ( Amer) 89.3 Est GFR (Non-Af Amer) 77.0 BUN/Creatinine Ratio 28.2 H Glucose 84 Calcium 8.7 Magnesium 1.6 L Total Bilirubin AST ALT Alkaline Phosphatase Troponin I High Sens 316.1 H* Total Protein Albumin Globulin Albumin/Globulin Ratio Urine Color Yellow Urine Appearance Clear Urine pH 6.5 Ur Specific [place] 1.008 Urine Protein Negative Urine Glucose (UA) Negative Urine Ketones Negative Urine Blood Negative Urine Nitrite Negative Urine Bilirubin Negative Urine Urobilinogen Negative Ur Leukocyte Esterase 2+ H Urine WBC (Auto) 5-10 H Urine RBC (Auto) 0-4 U Hyaline Cast (Auto) 1-5 U Epithel Cells (Auto) >30 H Urine Bacteria (Auto) Negative SARS-CoV-2, RNA, NAAT Diagnostic Findings Echocardiogram 10/14/2021 Low normal ejection fraction EF 50-55% no distinct segmental abnormalities with mild aortic and mitral insufficiency. Indirect evidence not quantified suggesting elevated pulmonary pressure ECG Additional Comments: 14-OCT-2021 00:46:57 [facility]-EDSTAT ROUTINE RETRIEVAL Sinus rhythm with Premature supraventricular complexes Left axis deviation Left ventricular hypertrophy with repolarization abnormality Possible Lateral infarct (cited on or before 06-SEP-2021) Abnormal ECG When compared with ECG of 08-SEP-2021 06:15, Premature supraventricular complexes are now Present VA interval has decreased Questionable change in initial forces of Anterior leads
--- NOTE | 2021-10-14 10:34 | Electrocardiogram Report ---
Test Reason : Blood Pressure : / mmHG Vent. Rate : 097 BPM Atrial Rate : 097 BPM P-R Int : 168 ms QRS Dur : 104 ms QT Int : 374 ms P-R-T Axes : 038 -35 060 degrees QTc Int : 474 ms Sinus rhythm with Premature supraventricular complexes Left axis deviation Left ventricular hypertrophy with repolarization abnormality Possible Anterior infarct (cited on or before 06-SEP-2021) Abnormal ECG When compared with ECG of 08-SEP-2021 06:15, Premature supraventricular complexes are now Present ID interval has decreased Questionable change in initial forces of Anterior leads Confirmed by Armand Polanco ([id number]) on 10/14/2021 10:33:42 AM Referred By: REFERRED SELF Confirmed By:Armand Polanco
[2021-10-14] MEDS: METOPROLOL SUCC 25MG EXT REL TAB PO SCH ×2 (11:52→20:27)
--- NOTE | 2021-10-14 17:28 | Communication Note ---
Date of Service: October 14, 2021 Patient was seen and examined at bedside. States she had acute onset SOB few hours prior to presentation but currently she feels much better after iv lasix yesterday. Currently on room air during my encounter. Seen by cardio and recommendations noted. CT chest reviewed. Echo reviewed (EF 50-55% with grade 1 diastolic dysfunction with borderline global hypokinesia), labs reviewed. She states she has not seen pulm yet for her ILD (she could not keep last appointment as she was in the rehab) and has not made one yet. Will consult pulm for her ILD. Continue her home meds for her DM. Also on empiric ABx since admission. Has LE edema, recheck volume status in am. Currently hypokalemic after iv lasix this morning and is being repleted. Might need additional diuretic- cardio on board. On my exam, sitting comfortably in bed eating dinner, on room air, chest with bilateral crackles, no accessory muscle use, heart sounds normal, abd benign, 2+ LE edema bilaterally. Please see H and P note for details of presentation. Detailed progress note will be done by the incoming hospitalist tomorrow.
[2021-10-14] MEDS: MAGNESIUM SULFATE / D5W 1 GM/100 ML BAG IV SCH ×2 (20:35→23:23)
[2021-10-15] MEDS: cefTRIAXone SODIUM 1,000 MG in DEXTROSE 5% 50 ML IV SCH (06:10)
[2021-10-15 06:15] LABS: Hemoglobin 10.7 g/dl (12.0-16.0); Mean Corpuscular Hemoglobin 27.2 pg (25.0-34.0); Mean Corpuscular Hgb Conc 30.6 g/dL (32.0-36.0); Mean Corpuscular Volume 89.1 fL (80.0-100.0); Mean Platelet Volume 11.5 fL (9.4-12.3); Platelet Count 150 K/uL (130-400); RDW Coefficient of Variation 18.6 % (11.5-14.5); RDW Standard Deviation 60.9 fL (36.4-46.3); Red Blood Count 3.93 M/uL (3.93-5.22); White Blood Count 4.44 K/ul (4.8-10.8)
[2021-10-15 06:37] LABS: BUN Creatinine Ratio 28.4 (10-20); Calcium 8.3 mg/dl (8.5-10.1); Est GFR (African American) 77.2 ml/min; Est GFR (Non-African American) 66.6 ml/min; Magnesium 2.3 mg/dl (1.7-2.4); Potassium 3.4 mmol/L (3.5-5.1)
[2021-10-15] MEDS: levETIRAcetam 500 MG TAB PO SCH ×2 (07:55→20:21)
[2021-10-15] MEDS: METOPROLOL SUCC 25MG EXT REL TAB PO SCH ×2 (07:56→20:20)
[2021-10-15] MEDS: GABAPENTIN 100 MG CAP PO SCH ×3 (07:57→20:17)
[2021-10-15] MEDS: FUROSEMIDE 40 MG/4 ML VIAL IV SCH (07:57)
[2021-10-15] MEDS: CHOLECALCIFEROL 1,000 UNITS 25 MCG TAB PO SCH (07:57)
[2021-10-15] MEDS: PANTOprazole 40 MG TAB PO SCH (07:57)
[2021-10-15] MEDS: predniSONE 20 MG TAB PO SCH (07:57)
[2021-10-15] MEDS: MAGNESIUM OXIDE 400 MG TAB PO SCH ×2 (07:57→20:19)
[2021-10-15] MEDS: ATORVASTATIN 40 MG TAB PO SCH (07:57)
[2021-10-15] MEDS: DOXYCYCLINE HYCLATE 100 MG CAP PO SCH ×2 (07:57→20:17)
[2021-10-15] MEDS: CLOPIDOGREL BISULFATE 75 MG TAB PO SCH (07:58)
[2021-10-15] MEDS: ASPIRIN 81 MG ECTAB PO SCH (07:58)
[2021-10-15] MEDS: MYCOPHENOLATE MOFETIL 250 MG CAP PO SCH ×2 (07:58→20:18)
[2021-10-15] MEDS: ENOXAPARIN INJ 40 MG/0.4 ML SYR SQ SCH (08:05)
[2021-10-15] MEDS: POTASSIUM CHLORIDE CRTAB 20 MEQ TABCR PO SCH ×2 (08:08→20:18)
--- NOTE | 2021-10-15 08:50 | Pulmonary Consultation ---
Date of Consultation October 15, 2021 Assessment & Plan (1) Interstitial lung disease: (2) Acute respiratory failure with hypoxia: (3) Acute dyspnea: (4) CHF (congestive heart failure): Heart failure chronicity: acute Heart failure type: unspecified Qualified Code(s): I50.9 - Heart failure, unspecified Plan 71-year-old female with history of dermatomyositis and interstitial lung disease presenting to the hospital due to increasing shortness of breath and lethargy. She was found to be in rhabdomyolysis. She is currently receiving Rocephin and doxycycline. We will check a procalcitonin, proBNP and MRSA screen. We will also order for a respiratory bio fire. We will check 1, 3 beta D glucan to evaluate for disseminated fungal infection. We will increase steroids to 40 mg IV twice daily Solu-Medrol and discontinue prednisone for possible ILD and dermatomyositis flare. Consider possible bronchoscopy on Sunday. Troponin elevated this admission possibly r elated to rhabdomyolysis versus demand ischemia. Cardiology following. Patient chronically on Plavix. Monitor for signs of hemoptysis as alveolar hemorrhage is on the differential. Fortunately, patient is requiring minimal supplemental oxygen at this time. Recommend improved control of her blood pressure. There does appear to be an acute on chronic ILD component. She does appear to have progressive fibrosis on the CT of her chest. Pulmonary will continue to follow. Thank you for the consult. History of Present Illness Reason for Consultation: Interstitial lung disease Attending Physician: Woo Rodríguez MD History of Present Illness 71-year-old female previously followed in the pulmonary clinic by Dr. De Leon and last seen February 2019. She was diagnosed with nonspecific interstitial pneumonia and possible dermatomyositis. She is presently on CellCept and prednisone. There was a question of whether the patient had methotrexate induced lung disease at that time as well. She has followed closely by Dr. Moncada of the rheumatology clinic as well. She had a CT of her chest done yesterday which demonstrates reticular opacities and subpleural fibrosis. There are areas of groundglass opacities and traction bronchiectasis. She has chronic pleural thickening noted on the CT chest. The CT is compared to the CT chest from 09/06/2021. The [address] yesterday demonstrates increasing groundglass opacities. I also compared this to the CT from 08/28/2020 and there does appear to be increasing reticulation and fibrosis over the past year. She had an echo completed yesterday which revealed an LVEF of 50 to 55%. There is borderline global hypokinesis of the left ventricle. Grade 1 diastolic dysfunction. Aortic valve sclerosis noted. Cardiology was consulted. They added low-dose spironolactone. She is receiving doxycycline and ceftriaxone for possible pneumonia. No significant leukocytosis is seen. No fever. Procalcitonin, MRSA screen and proBNP were not checked. Blood cultures were not checked. COVID-19 antigen was negative on arrival. She smoked 1 pack/day for 25 years. She quit smoking about 3 years ago. She is retired and used to work in a clothing factory. She was exposed to formaldehyde fumes. Allergies Allergy/AdvReac Type Severity Reaction Status Date / Time No Known Allergies Allergy Verified 09/06/21 21:10 Home Medications Medication Instructions Recorded Confirmed Type doxepin 50 mg capsule 50 - 150 mg PO HS PRN Sleep 12/03/18 09/06/21 History gabapentin 100 mg capsule 100 mg PO TID 12/03/18 09/06/21 History mycophenolate mofetil 500 mg tablet 1,000 mg PO BID 12/03/18 09/06/21 History cholecalciferol (vitamin D3) 25 25 mcg PO DAILY 03/27/19 09/06/21 History mcg (1,000 unit) tablet aspirin 81 mg tablet,delayed 81 mg PO QAM #90 tabs 08/30/20 09/06/21 Rx release atorvastatin 40 mg tablet 40 mg PO QAM #30 tabs 08/30/20 09/06/21 Rx clopidogrel 75 mg tablet (Plavix) 75 mg PO DAILY #30 tabs 08/30/20 09/06/21 Rx levetiracetam 500 mg tablet 500 mg PO BID #60 tabs 08/30/20 09/06/21 Rx (Keppra) pantoprazole 40 mg tablet,delayed 40 mg PO DAILY 09/06/21 09/06/21 History release prednisone 20 mg tablet 20 mg PO DAILY 10/14/21 10/14/21 History Patient History Medical History (Updated 10/15/21 @ 08:45 by Abraham Calhoun MD) Acute dyspnea Acute respiratory failure with hypoxia Surgical History History of hysterectomy Social History Smoking Status: Former smoker Tobacco Type: Cigarettes Second Hand Exposure: No; Hx Alcohol Use: No Hx Substance Use: No Preferred Language: Serbian Communication Ability: Effective Core Composer Feeder Required: No Beliefs That Will Affect Care: None marital status: Single Current Living Situation: Alone Current Living Situation Comment: At home byself recently enrolled in home health Feels Safe at Home: Yes Safety Concerns: Feels Safe At This Time Assistive Devices: Walker Review of Systems Review of Systems: All systems reviewed & are unremarkable except as noted in HPI & below Results & Data Results & Data ([facility]) Vital Signs (Past 12 Hours) Vital Signs Temp Pulse Pulse Resp BP Pulse Ox O2 Del Method 10/15/21 08:09 36.6 C 78 18 150/80 H 95 Nasal Cannula 10/15/21 03:57 36.3 C L 80 16 159/89 H 99 Nasal Cannula 10/14/21 22:20 74 10/14/21 22:53 36.7 C 78 20 137/73 98 Room Air O2 Flow Rate 10/15/21 08:09 2 10/15/21 03:57 10/14/21 22:20 10/14/21 22:53 PG Care Time/CCT Total # of Minutes Spent Total Time Spent with Patient: Total time spent is greater than 50% in coordination of care (as documented) at patient's floor/unit and/or counseling patient: Coding Level of Care Code 96577 Initial Inpt Care Lvl 3 Diagnoses Interstitial lung disease J84.9 Acute respiratory failure with hypoxia J96.01 Acute dyspnea R06.00 CHF (congestive heart failure) I50.9 Heart failure chronicity: acute Heart failure type: unspecified
[2021-10-15] MEDS: methylPREDNISolone 40 MG in SYRINGE 0 ML IV SCH ×2 (10:02→20:21)
--- NOTE | 2021-10-15 11:31 | Cardiology Progress Note ---
Date of Service October 15, 2021 Assessment & Plan (1) Hypoxia: (2) Interstitial lung disease: (3) Elevated troponin: (4) Anemia: Plan Patient is a 71-year-old female with underlying interstitial lung disease with recent 09/06/2021 hospitalization with flare of dermatomyositis/rhabdomyolysis on immunosuppressive therapy with prednisone and CellCept. Patient not on oxygen supplementation She presents now with worsening dyspnea with increased interstitial markings possible infiltrates on chest x-ray and CT. Component of diastolic heart failure not excluded. Troponins mildly elevated but consistent with past elevations. Underlying coronary disease not excluded given atherosclerosis on CAT scan. Currently mildly tachycardia with frequent atrial ectopy on telemetry EKG without acute changes Chest x-ray and CAT scans notable for significant interstitial lung disease Laboratory studies reflect anemia with hemoglobin decreased by 3 g comparison to outpatient testing 2 weeks prior Recommendations: Treat hypoxia. Exam does not suggest acute left-sided heart failure but moderate lower extremity edema present. Appreciate pulmonology Will follow closely 10/15/2021 We will discontinue IV Lasix today clinically improved Add spironolactone 12.5 mg p.o. daily with oral Lasix to be begun in a.m. after review of electrolytes Add low-dose AURA inhibitor for hypertension and afterload reduction. Troponins elevated not suspicious for ischemia but may warrant diagnostic cardiac catheterization right and left in future Admission and Anticipated Discharge Date Admission Date: October 14, 2021 Subjective Patient was seen and examined, chart, medications, telemetry reviewed. Patient feels more comfortable today dyspnea improved lower extremity edema improved. No fevers chills. No bleeding difficulties. Blood pressure somewhat variable but no longer hypotensive Review of Systems Review of Systems: All systems reviewed & are unremarkable except as noted in Subjective Physical Exam Constitutional: no acute distress Eyes: PERRL, conjunctivae normal, anicteric sclerae ENMT: external ear and nose normal, oropharynx normal Neck: trachea midline, no thyromegaly Respiratory: Auscultation: + diminished lung sounds and + crackles Cardiovascular: Rate/Rhythm: regular rate and regular rhythm Heart Sounds: normal S1 and normal S2; no murmur Vessels: no JVD Extremities: + edema (2+ lower extremity edema) Gastrointestinal (Abdomen): normal bowel sounds, soft, nontender, no hepatosplenomegaly Psychiatric: A+Ox3, euthymic affect Results & Data ([facility]) Vital Signs (Past 12 Hours) Vital Signs Temp Pulse Resp BP Pulse Ox O2 Del Method O2 Flow Rate 10/15/21 08:09 36.6 C 78 18 150/80 H 95 Nasal Cannula 2 10/15/21 03:57 36.3 C L 80 16 159/89 H 99 Nasal Cannula Laboratory Results Laboratory Results - last 24 hr 10/14/21 10/14/21 10/15/21 11:05 16:38 05:38 WBC 4.44 L RBC 3.93 Hgb 10.7 L Hct 35.0 MCV 89.1 MCH 27.2 MCHC 30.6 L RDW Std Deviation 60.9 H RDW Coeff of Myra 18.6 H Plt Count 150 MPV 11.5 Sodium Potassium Chloride Carbon Dioxide Anion Gap BUN Creatinine Est Cr Clr Drug Dosing Est GFR ( Amer) Est GFR (Non-Af Amer) BUN/Creatinine Ratio Glucose Calcium Magnesium Troponin I High Sens 309.4 H* 252.7 H* B-Natriuretic Peptide Procalcitonin Beta-(1,3)-D-Glucan B-(1,3)-D-Glucan Intrp 10/15/21 10/15/21 10/15/21 05:38 09:02 09:02 WBC RBC Hgb Hct MCV MCH MCHC RDW Std Deviation RDW Coeff of Myra Plt Count MPV Sodium 138 Potassium 3.4 L Chloride 101 Carbon Dioxide 29 Anion Gap 8 BUN 25 H Creatinine 0.88 Est Cr Clr Drug Dosing 60.0 Est GFR ( Amer) 77.2 Est GFR (Non-Af Amer) 66.6 BUN/Creatinine Ratio 28.4 H Glucose 73 Calcium 8.3 L Magnesium 2.3 Troponin I High Sens B-Natriuretic Peptide 660 H Procalcitonin 0.13 Beta-(1,3)-D-Glucan B-(1,3)-D-Glucan Intrp 10/15/21 09:02 WBC RBC Hgb Hct MCV MCH MCHC RDW Std Deviation RDW Coeff of Myra Plt Count MPV Sodium Potassium Chloride Carbon Dioxide Anion Gap BUN Creatinine Est Cr Clr Drug Dosing Est GFR ( Amer) Est GFR (Non-Af Amer) BUN/Creatinine Ratio Glucose Calcium Magnesium Troponin I High Sens B-Natriuretic Peptide Procalcitonin Beta-(1,3)-D-Glucan Pending B-(1,3)-D-Glucan Intrp Pending
[2021-10-15 12:29] LABS: BUN Creatinine Ratio 24.7 (10-20); Calcium 8.5 mg/dl (8.5-10.1); Creatinine Clr Calc Pharmacy 54.4 ml/min; Est GFR (African American) 68.6 ml/min; Est GFR (Non-African American) 59.2 ml/min; Potassium 3.7 mmol/L (3.5-5.1)
[2021-10-15] MEDS: lisinopril 2.5 MG TAB PO SCH (13:26)
[2021-10-15] MEDS: SPIRONOLACTONE 12.5 MG TAB PO SCH (13:26)
--- NOTE | 2021-10-15 13:53 | Hospitalist Progress Note ---
Date of Service October 15, 2021 Assessment & Plan (1) Acute respiratory failure with hypoxia: (2) CHF (congestive heart failure): (3) Elevated troponin: (4) Interstitial lung disease: Plan This is a 71-year-old female who presents with shortness of breath, lower extremity edema 1) Acute hypoxic respiratory failure secondary to CHFpEF excerebation, ILD 2) Elevated high-sensitivity troponin likely demand ischemia 3) Hx of Dermatomyositis with ILD Afebrile, normotensive and saturating well at 1 L of nasal cannula. WBC is 4.44. [id number]. High-sensitivity troponin down trended to 252 CT chest without contrastinterval development of consolidative opacities in bilateral lung bases and scattered groundglass opacities. Small bilateral pleural effusion. Stable interstitial fibrotic/emphysematous changes. Plan; Cardiology on board; recommend to hold Lasix for today. Add spironolactone 12.5 mg per oral daily and oral Lasix tomorrow after review of electrolytes. Also started on lisinopril 2.25 mg once daily. -Pulm on board; recommended to check procalcitonin, proBNP and MRSA screen and respiratory bio fire. Also steroid changed to Solu-Medrol. Chronic conditions: 4. History of dermatomyositis. The patient on CellCept Currently on prednisone 20 mg. Taper as per rheumatology. 5. History of seizures: On Keppra. 6. History of cerebrovascular accident: On aspirin, statin and Plavix. 7. History of hypertension: Currently not on any medication. Monitor the blood pressure. 8. Gastroesophageal reflux disease: On Protonix. DVT ppx- lovenox COde- full code Admission and Anticipated Discharge Date Admission Date: October 14, 2021 Subjective Patient sitting up on the side of the bed. Oxygen requirement down to 1 L via nasal cannula. Plan is to wean oxygen off. She feels that her shortness of breath has improved significantly since presentation. Is able to ambulate without much difficulty. Review of Systems Review of Systems: All systems reviewed & are unremarkable except as noted in Subjective Physical Exam Physical Exam: Constitutional: WD/WN, vitals as above, NAD, sitting up in bed, pleasant, conversing easily. Not in acute distress. Head: Normocephalic, Atraumatic Eyes: PERRL, conjunctivae normal, anicteric sclerae ENMT: external ear and nose normal, oropharynx normal Neck: trachea midline, no thyromegaly normal visual inspection Respiratory: Bilateral crackles at bases. Cardiovascular: RRR, no murmur, no edema Vessels: no JVD or carotid bruit Chest: normal inspection of chest Abdomen: normal bowel sounds, soft, nontender, no hepatosplenomegaly Musculoskeletal: no cyanosis or clubbing, extremities motor strength 5/5 Skin: no rashes, warm and dry normal turgor. 1+ pitting edema present at lower extremities Neurologic: PERRL, EOMI, accommodation nl, no face palsy, no dysarthria CN's II- XI intact bilaterally and moves all extremities Psychiatric: A+Ox3, euthymic affect Lymphatic: no cervical or axillary lymphadenopathy : deferred Results & Data Results & Data ([facility]) Vital Signs (Past 12 Hours) Vital Signs Temp Pulse Resp BP Pulse Ox O2 Del Method O2 Flow Rate 10/15/21 12:50 36.4 C L 72 18 129/74 96 10/15/21 07:50 Nasal Cannula 2 10/15/21 08:09 36.6 C 78 18 150/80 H 95 Nasal Cannula 2 10/15/21 03:57 36.3 C L 80 16 159/89 H 99 Nasal Cannula Diagnostic Findings Laboratory Results WBC 4.44 K/ul (4.8-10.8) L 10/15/21 05:38 RBC 3.93 M/uL (3.93-5.22) 10/15/21 05:38 Hgb 10.7 g/dl (12.0-16.0) L 10/15/21 05:38 Hct 35.0 % (34.1-44.9) 10/15/21 05:38 MCV 89.1 fL (80.0-100.0) 10/15/21 05:38 MCH 27.2 pg (25.0-34.0) 10/15/21 05:38 MCHC 30.6 g/dL (32.0-36.0) L 10/15/21 05:38 RDW Std Deviation 60.9 fL (36.4-46.3) H 10/15/21 05:38 RDW Coeff of Myra 18.6 % (11.5-14.5) H 10/15/21 05:38 Plt Count 150 K/uL (130-400) 10/15/21 05:38 MPV 11.5 fL (9.4-12.3) 10/15/21 05:38 Immature Gran % (Auto) 0.4 % 10/14/21 06:09 Neut % (Auto) 73.8 % 10/14/21 06:09 Lymph % (Auto) 16.9 % 10/14/21 06:09 Towner % (Auto) 7.9 % 10/14/21 06:09 Eos % (Auto) 0.6 % 10/14/21 06:09 Baso % (Auto) 0.4 % 10/14/21 06:09 Neut # (Auto) 3.94 K/uL (1.4-6.5) 10/14/21 06:09 Lymph # (Auto) 0.90 K/uL (1.2-3.4) L 10/14/21 06:09 Towner # (Auto) 0.42 K/uL (0.24-0.82) 10/14/21 06:09 Eos # (Auto) 0.03 K/uL (0-0.50) 10/14/21 06:09 Baso # (Auto) 0.02 K/uL (0-0.2) 10/14/21 06:09 Immature Gran # (Auto) 0.02 K/uL (0.00-0.02) 10/14/21 06:09 Sodium 137 mmol/L (136-145) 10/15/21 11:43 Potassium 3.7 mmol/L (3.5-5.1) 10/15/21 11:43 Chloride 98 mmol/L (98-107) 10/15/21 11:43 Carbon Dioxide 32 mmol/L (21-32) 10/15/21 11:43 Anion Gap 7 (3-11) 10/15/21 11:43 BUN 24 mg/dl (6-23) H 10/15/21 11:43 Creatinine 0.97 mg/dl (0.6-1.2) 10/15/21 11:43 Est Cr Clr Drug Dosing 54.4 ml/min 10/15/21 11:43 Est GFR ( Amer) 68.6 ml/min 10/15/21 11:43 Est GFR (Non-Af Amer) 59.2 ml/min 10/15/21 11:43 BUN/Creatinine Ratio 24.7 (10-20) H 10/15/21 11:43 Glucose 74 mg/dl (70-99(Fasting)) 10/15/21 11:43 Calcium 8.5 mg/dl (8.5-10.1) 10/15/21 11:43 Magnesium 2.3 mg/dl (1.7-2.4) 10/15/21 05:38 Total Bilirubin 0.9 mg/dl (0.2-1.0) 10/14/21 00:58 AST 61 U/L (13-39) H 10/14/21 00:58 ALT 52 U/L (7-52) 10/14/21 00:58 Alkaline Phosphatase 59 U/L (34-104) 10/14/21 00:58 Troponin I High Sens 252.7 pg/ml (0-14) H* 10/14/21 16:38 B-Natriuretic Peptide 660 pg/ml (0-100) H 10/15/21 09:02 Total Protein 6.9 gm/dl (6.0-8.3) 10/14/21 00:58 Albumin 3.2 gm/dl (3.4-5.0) L 10/14/21 00:58 Globulin 3.7 gm/dl (2.5-4.0) 10/14/21 00:58 Albumin/Globulin Ratio 0.9 (0.9-2) 10/14/21 00:58 Procalcitonin 0.13 ng/ml (0-0.5) 10/15/21 09:02 Urine Color Yellow 10/14/21 03:00 Urine Appearance Clear (Clear) 10/14/21 03:00 Urine pH 6.5 (4.5-7.5) 10/14/21 03:00 Ur Specific [place] 1.008 (1.000-1.030) 10/14/21 03:00 Urine Protein Negative (Negative) 10/14/21 03:00 Urine Glucose (UA) Negative (Negative) 10/14/21 03:00 Urine Ketones Negative (Negative) 10/14/21 03:00 Urine Blood Negative (Negative) 10/14/21 03:00 Urine Nitrite Negative (Negative) 10/14/21 03:00 Urine Bilirubin Negative (Negative) 10/14/21 03:00 Urine Urobilinogen Negative (Negative) 10/14/21 03:00 Ur Leukocyte Esterase 2+ (Negative) H 10/14/21 03:00 Urine WBC (Auto) 5-10 /hpf (0-5) H 10/14/21 03:00 Urine RBC (Auto) 0-4 /hpf (0-4) 10/14/21 03:00 U Hyaline Cast (Auto) 1-5 /lpf (0-5) 10/14/21 03:00 U Epithel Cells (Auto) >30 /lpf (0-5) H 10/14/21 03:00 Urine Bacteria (Auto) Negative (Negative) 10/14/21 03:00 SARS-CoV-2, RNA, NAAT NEGATIVE (NEGATIVE) 10/14/21 00:55 Impressions Chest X-Ray 10/14/21 01:50 XR chest 1V portable CLINICAL HISTORY: Dyspnea TECHNIQUE: Single frontal radiograph of the chest was obtained. Comparison: Comparison is made to chest radiograph 09/06/2021 and CTA chest 09/06/2021 FINDINGS: No lines and tubes are seen. The cardiomediastinal silhouette is normal. Reticular interstitial opacities are seen. Appearances background, there is faint bibasilar airspace opacity. Blunting of the costophrenic angles is unchanged, likely due to scarring although superimposed effusions cannot be entirely excluded. IMPRESSION: Interval development of faint bibasilar airspace opacities which may represent atelectasis, pneumonia, and/or aspiration. Reticular interstitial opacities are unchanged. ACT 112: Negative or not required by law. Electronically signed by: Xavier Tavares M.D. 10/14/2021 8:[address] 10/14/21 04:52 CT chest diagnostic wo con CLINICAL HISTORY: pneumonia? cough, sob TECHNIQUE: Multidetector row helical CT of the chest was performed. Coronal and sagittal reformations were obtained. Automated dose lowering techniques and/or adjustment according to patient size were utilized for this exam. CT DOSE: 163.94 mGy.cm Comparison: Comparison is made to CTA chest 09/06/2021, chest radiograph 10/14/[address] chest 09/06/2021 FINDINGS: Lungs and pleura: Interstitial reticular opacities and bronchiectasis are seen. There is interval development of consolidative densities in the bilateral lower lungs as well as scattered ground glass opacities throughout. Scattered emphysematous changes are noted. Small bilateral pleural effusions are seen, new from prior. Heart and pericardium: Cardiomegaly is seen with biatrial enlargement. Vessels: The pulmonary trunk is enlarged measuring 33 mm compatible with pulmonary hypertension. Moderate atherosclerotic disease is seen. The ascending aorta is minimally ectatic measuring 40 mm. Mediastinum and arlette: Subcentimeter lymph nodes are seen. Chest wall and lower neck: Unremarkable. Abdomen: A hiatal hernia is seen. Bones: Degenerative changes in the thoracic spine. IMPRESSION: 1. Interval development of consolidative opacities in the bilateral lung bases and scattered groundglass opacities which likely reflect infectious/inflammatory process such as pneumonia. 2. Small bilateral pleural effusions are seen, new from prior. 3. Stable interstitial fibrotic/emphysematous changes. 4. Pulmonary hypertension. ACT 112: Negative or not required by law. Electronically signed by: Xavier Tavares M.D. 10/14/2021 9:12 AM Venous Doppler Study 10/14/21 04:52 BILATERAL LOWER EXTREMITY VENOUS DOPPLER HISTORY: Acute pain and swelling of the lower legs lower ext noni a and mild erythema. DVT? COMPARISON STUDY: Doppler study 05/18/1999 and FINDINGS: There is normal compressibility, flow, and augmentation within the bilateral lower extremity deep venous systems. Subcutaneous edema of the lower legs. IMPRESSION: No DVT within the right or left lower extremity. ACT 112: Negative or not required by law. Electronically signed by: Kenji Santiago M.D. 10/14/2021 6:33 AM COVID-19 Results Results COVID-19 Adm Lab Results: RBC 3.93 M/uL (3.93-5.22) 10/15/21 WBC 4.44 K/ul (4.8-10.8) L 10/15/21 Hgb 10.7 g/dl (12.0-16.0) L 10/15/21 Hct 35.0 % (34.1-44.9) 10/15/21 Plt Count 150 K/uL (130-400) 10/15/21 Neutrophils (%) (Auto) 73.8 % 10/14/21 Lymphocytes (%) (Auto) 16.9 % 10/14/21 Monocytes # (Auto) 0.42 K/uL (0.24-0.82) 10/14/21 Eosinophils # (Auto) 0.03 K/uL (0-0.50) 10/14/21 Immature Granulocyte % (Auto) 0.4 % 10/14/21 Neutrophils # (Auto) 3.94 K/uL (1.4-6.5) 10/14/21 Lymphocytes # (Auto) 0.90 K/uL (1.2-3.4) L 10/14/21 Monocytes # (Auto) 0.42 K/uL (0.24-0.82) 10/14/21 Eosinophils # (Auto) 0.03 K/uL (0-0.50) 10/14/21 Basophils # (Auto) 0.02 K/uL (0-0.2) 10/14/21 Immature Granulocyte # (Auto) 0.02 K/uL (0.00-0.02) 2 Na 137 mmol/L (136-145) 10/15/21 K 3.7 mmol/L (3.5-5.1) 10/15/21 Cl 98 mmol/L (98-107) 10/15/21 CO2 32 mmol/L (21-32) 10/15/21 Anion Gap 7 (3-11) 10/15/21 BUN 24 mg/dl (6-23) H 10/15/21 Creatinine 0.97 mg/dl (0.6-1.2) 10/15/21 BUN/Creatinine Ratio 24.7 (10-20) H 10/15/21 Glucose Level 74 mg/dl (70-99(Fasting)) 10/15/21 Ca 8.5 mg/dl (8.5-10.1) 10/15/21 Total Bilirubin 0.9 mg/dl (0.2-1.0) 10/14/21 AST/SGOT 61 U/L (13-39) H 10/14/21 ALT/SGPT 52 U/L (7-52) 10/14/21 Alkaline Phosphatase 59 U/L (34-104) 10/14/21 Total Protein 6.9 gm/dl (6.0-8.3) 10/14/21 Albumin 3.2 gm/dl (3.4-5.0) L 10/14/21 Globulin 3.7 gm/dl (2.5-4.0) 10/14/21 Albumin/Globulin Ratio 0.9 (0.9-2) 10/14/21 Procalcitonin 0.13 ng/ml (0-0.5) 10/15/21 Adenovirus (PCR) Pending 10/15/21 B. parapertussis DNA (PCR) Pending 10/15/21 B. pertussis DNA (PCR) Pending 10/15/21 C. pneumoniae DNA (PCR) Pending 10/15/21 Coronavirus Type OC43 (PCR) Pending 10/15/21 Coronavirus Type HKU1 (PCR) Pending 10/15/21 Coronavirus Type 229E (PCR) Pending 10/15/21 COVID-19 PCR Pending 10/15/21 Coronavirus Type NL63 (PCR) Pending 10/15/21 Human Metapneumovirus (PCR) Pending 10/15/21 Influenza Virus Type B (PCR) Pending 10/15/21 M. pneumoniae (PCR) Pending 10/15/21 Parainfluenza Type 1 (PCR) Pending 10/15/21 Parainfluenza Type 2 (PCR) Pending 10/15/21 Parainfluenza Type 3 (PCR) Pending 10/15/21 Parainfluenza Type 4 (PCR) Pending 10/15/21 RSV (PCR) Pending 10/15/21 Enterovirus/Rhinovirus (PCR) Pending 10/15/21 SARS-CoV-2, RNA, NAAT NEGATIVE (NEGATIVE) 10/14/[address] 10/14/21 Chest X-Ray 10/14/21 (1) CHF (congestive heart failure) Heart failure chronicity: acute Heart failure type: unspecified Qualified Code(s): I50.9 - Heart failure, unspecified
[2021-10-15 14:41] LABS: Adenovirus PCR Not Detected (NotDetected); Bordetella parapertussis PCR Not Detected (NotDetected); Bordetella pertussis PCR Not Detected (NotDetected); Chlamydia pneumoniae PCR Not Detected (NotDetected); Coronavirus 229E PCR Not Detected (NotDetected); Coronavirus CoV-2 (COVID19)PCR Not Detected (NotDetected); Coronavirus HKU1 PCR Not Detected (NotDetected); Coronavirus NL63 PCR Not Detected (NotDetected); Coronavirus OC43PCR Not Detected (NotDetected); Human Metapneumovirus PCR Not Detected (NotDetected); Influenza A PCR Not Detected (NotDetected); Influenza B PCR Not Detected (NotDetected); Mycoplasma pneumoniae PCR Not Detected (NotDetected); Parainfluenza Virus 1 PCR Not Detected (NotDetected); Parainfluenza Virus 2 PCR Not Detected (NotDetected); Parainfluenza Virus 3 PCR Not Detected (NotDetected); Parainfluenza Virus 4 PCR Not Detected (NotDetected); Respiratory Syncytial VirusPCR Not Detected (NotDetected); Rhinovirus/Enterovirus PCR Not Detected (NotDetected)
[2021-10-16] MEDS: cefTRIAXone SODIUM 1,000 MG in DEXTROSE 5% 50 ML IV SCH (05:38)
[2021-10-16 07:32] LABS: BUN Creatinine Ratio 32.6 (10-20); Calcium 8.7 mg/dl (8.5-10.1); Creatinine Clr Calc Pharmacy 55.6 ml/min; Est GFR (African American) 70.3 ml/min; Est GFR (Non-African American) 60.7 ml/min; Potassium 4.4 mmol/L (3.5-5.1)
[2021-10-16] MEDS: METOPROLOL SUCC 25MG EXT REL TAB PO SCH (08:14)
[2021-10-16] MEDS: levETIRAcetam 500 MG TAB PO SCH (08:14)
[2021-10-16] MEDS: MAGNESIUM OXIDE 400 MG TAB PO SCH (08:15)
[2021-10-16] MEDS: ATORVASTATIN 40 MG TAB PO SCH (08:15)
[2021-10-16] MEDS: CLOPIDOGREL BISULFATE 75 MG TAB PO SCH (08:15)
[2021-10-16] MEDS: SPIRONOLACTONE 12.5 MG TAB PO SCH (08:15)
[2021-10-16] MEDS: MYCOPHENOLATE MOFETIL 250 MG CAP PO SCH (08:15)
[2021-10-16] MEDS: ASPIRIN 81 MG ECTAB PO SCH (08:15)
[2021-10-16] MEDS: lisinopril 2.5 MG TAB PO SCH (08:15)
[2021-10-16] MEDS: GABAPENTIN 100 MG CAP PO SCH (08:15)
[2021-10-16] MEDS: PANTOprazole 40 MG TAB PO SCH (08:15)
[2021-10-16] MEDS: CHOLECALCIFEROL 1,000 UNITS 25 MCG TAB PO SCH (08:15)
[2021-10-16] MEDS: DOXYCYCLINE HYCLATE 100 MG CAP PO SCH (08:15)
[2021-10-16] MEDS: ENOXAPARIN INJ 40 MG/0.4 ML SYR SQ SCH (08:16)
--- NOTE | 2021-10-16 08:49 | XRay Report ---
XR chest 1V portable HISTORY: Shortness of breath. Follow up for pulmonary edema COMPARISON: Chest 10/14/2021. FINDINGS: No pneumothorax. The heart remains mildly enlarged. Small bilateral pleural effusions and b ibasilar densities have improved. Pulmonary edema has also improved. There are low lung volumes. IMPRESSION: Interval improvement in the interstitial pulmonary edema, small bilateral pleural effusions, and biba silar densities. ACT 112: Negative or not required by law. Electronically signed by: Joce Walsh M.D. 10/16/2021 8:48 AM
--- NOTE | 2021-10-16 09:46 | Pulmonology Progress Note ---
Date of Service October 16, 2021 Assessment & Plan (1) Interstitial lung disease: (2) Acute respiratory failure with hypoxia: (3) Acute dyspnea: (4) CHF (congestive heart failure): Heart failure chronicity: acute Heart failure type: unspecified Qualified Code(s): I50.9 - Heart failure, unspecified Plan 71-year-old female with history of dermatomyositis and interstitial lung disease presenting to the hospital due to increasing shortness of breath and lethargy. She was found to be in rhabdomyolysis. Currently on Rocephin and doxycycline. Procalcitonin unremarkable. proBNP mildly elevated. MRSA screen positive. Respiratory bio fire negative. 1, 3 beta D glucan pending. She can likely be transitioned back to oral prednisone at a dose of 40 mg and wean down by 5 mg every 5 days until back to her regular dose. Suspect likely ILD flare mixed with congestive heart failure. Despite the MRSA screen being positive, I doubt that she has MRSA pneumonia. Recommend a 7-day course of oral antibiotics. Will prescribe the patient a flutter valve to maintain airway clearance given traction bronchiectasis seen on CT. She should follow-up with rheumatology for her history of dermatomyositis and elevated CK. She will need outpatient pulmonary follow-up with repeat PFTs. Pulmonary to sign off at this time. Thank you for the consult. Admission and Anticipated Discharge Date Admission Date: October 14, 2021 Subjective Patient seen and examined. She is eager to go home. She is currently saturating well on room air walking about her room. She denies any shortness of breath at this time. Cough is minimal. Review of Systems Review of Systems: All systems reviewed & are unremarkable except as noted in HPI & below Physical Exam Physical Exam: Constitutional: Patient appears to be of their stated age. Patient is in no apparent distress. Patient is well-developed. Eyes: Pupils are equal round and reactive to light. Conjunctivae are normal. Anicteric sclera. Ears nose, mouth and throat: Deferred. Neck: Trachea is midline. Visual inspection is normal. Respiratory: Mild bibasilar crackles. Cardiovascular: Regular rate and rhythm. No murmurs. No edema. Gastrointestinal: Normal bowel sounds, soft, nontender and nondistended. No hepatosplenomegaly noted. Musculoskeletal: No cyanosis. Patient is able to move all extremities. Strength is 5 out of 5 in the upper and lower extremities. Skin: No rashes, warm dry and intact. Neurologic: No obvious focal neurological deficits seen. Psychiatric: Alert and oriented x3 with a euthymic affect. Results & Data Results & Data ([facility]) Vital Signs (Past 12 Hours) Vital Signs Temp Pulse Pulse Pulse Resp BP BP 10/16/21 07:30 36.4 C L 94 H 16 188/93 H 111/80 10/16/21 03:20 36.6 C 68 18 178/93 H 10/15/21 22:20 78 10/15/21 23:08 36.2 C L 71 18 167/93 H Pulse Ox O2 Del Method 10/16/21 07:30 94 Room Air 10/16/21 03:20 93 Room Air 10/15/21 22:20 10/15/21 23:08 95 Room Air PG Care Time/CCT Total # of Minutes Spent Total Time Spent with Patient: Total time spent is greater than 50% in coordination of care (as documented) at patient's floor/unit and/or counseling patient: Coding Level of Care Code 84954 Subseq Hosp Care Lvl 2 Diagnoses Interstitial lung disease J84.9 Acute respiratory failure with hypoxia J96.01 Acute dyspnea R06.00 CHF (congestive heart failure) I50.9 Heart failure chronicity: acute Heart failure type: unspecified
[2021-10-16] MEDS: methylPREDNISolone 40 MG in SYRINGE 0 ML IV SCH (10:09)
--- NOTE | 2021-10-16 12:30 | Cardiology Progress Note ---
Date of Service October 16, 2021 Assessment & Plan (1) Hypoxia: (2) Interstitial lung disease: (3) Elevated troponin: (4) Anemia: Plan Patient is a 71-year-old female with underlying interstitial lung disease with recent 09/06/2021 hospitalization with flare of dermatomyositis/rhabdomyolysis on immunosuppressive therapy with prednisone and CellCept. Patient not on oxygen supplementation She presents now with worsening dyspnea with increased interstitial markings possible infiltrates on chest x-ray and CT. Component of diastolic heart failure not excluded. Troponins mildly elevated but consistent with past elevations. Underlying coronary disease not excluded given atherosclerosis on CAT scan. Currently mildly tachycardia with frequent atrial ectopy on telemetry EKG without acute changes Chest x-ray and CAT scans notable for significant interstitial lung disease Laboratory studies reflect anemia with hemoglobin decreased by 3 g comparison to outpatient testing 2 weeks prior Recommendations: Treat hypoxia. Exam does not suggest acute left-sided heart failure but moderate lower extremity edema present. Appreciate pulmonology Will follow closely 10/15/2021 We will discontinue IV Lasix today clinically improved Add spironolactone 12.5 mg p.o. daily with oral Lasix to be begun in a.m. after review of electrolytes Add low-dose AURA inhibitor for hypertension and afterload reduction. Troponins elevated not suspicious for ischemia but may warrant diagnostic cardiac catheterization right and left in future 10/16/2021 Interstitial lung disease with acute exacerbation and associated right heart failure clinically improving. Would assess need for oxygen Continue metoprolol succinate 12.5 mg twice per day, AURA inhibitor with lisinopril 5 mg/day, furosemide 20 mg daily, spironolactone 12.5 mg/day Will need BMP in next weeks time Follow-up cardiology 3-4 with Continue pulmonology evaluation as planned Admission and Anticipated Discharge Date Admission Date: October 14, 2021 Subjective Patient seen and examined, chart, medications, telemetry reviewed. Patient feels much more comfortable. Ambulatory in room. Lower extremity edema improving after 3 L diuresis Review of Systems Review of Systems: All systems reviewed & are unremarkable except as noted in Subjective Physical Exam Constitutional: no acute distress Eyes: PERRL, conjunctivae normal, anicteric sclerae ENMT: external ear and nose normal, oropharynx normal Neck: trachea midline, no thyromegaly Respiratory: Auscultation: + diminished lung sounds and + crackles Cardiovascular: Rate/Rhythm: regular rate and regular rhythm Heart Sounds: normal S1 and normal S2; no murmur Vessels: no JVD Extremities: + edema (1+ lower extremity edema) Gastrointestinal (Abdomen): normal bowel sounds, soft, nontender, no hepatosplenomegaly Psychiatric: A+Ox3, euthymic affect Results & Data ([facility]) Vital Signs (Past 12 Hours) Vital Signs Temp Pulse Pulse Pulse Resp BP BP 10/16/21 11:30 36.8 C 81 16 166/80 H 10/16/21 08:10 10/16/21 06:05 101 H 10/16/21 07:30 36.4 C L 94 H 16 188/93 H 111/80 10/16/21 03:20 36.6 C 68 18 178/93 H Pulse Ox O2 Del Method 10/16/21 11:30 92 Room Air 10/16/21 08:10 Room Air 10/16/21 06:05 10/16/21 07:30 94 Room Air 10/16/21 03:20 93 Room Air Laboratory Results Laboratory Results - last 24 hr 10/15/21 10/15/21 10/15/21 Unknown Unknown Unknown Sodium Potassium Chloride Carbon Dioxide Anion Gap BUN Creatinine Est Cr Clr Drug Dosing Est GFR ( Amer) Est GFR (Non-Af Amer) BUN/Creatinine Ratio Glucose Calcium Nasal Screen MRSA (PCR) Positive A Adenovirus (PCR) Not Detected B. pertussis DNA (PCR) Not Detected B.parapertussis DNA PCR Not Detected C. pneumoniae DNA (PCR) Not Detected Coronavirus OC43 (PCR) Not Detected Coronavirus HKU1 (PCR) Not Detected Coronavirus 229E (PCR) Not Detected SARS-CoV-2 (PCR) Not Detected Coronavirus NL63 (PCR) Not Detected Human Metapneumovir PCR Not Detected Influenza Type A (PCR) Not Detected Influenza Type B (PCR) Not Detected Urine Legionella Ag Pending M. pneumoniae (PCR) Not Detected Parainfluenza 1 (PCR) Not Detected Parainfluenza 2 (PCR) Not Detected Parainfluenza 3 (PCR) Not Detected Parainfluenza 4 (PCR) Not Detected RSV (PCR) Not Detected Entero/Rhino (PCR) Not Detected 10/16/21 06:28 Sodium 138 Potassium 4.4 Chloride 101 Carbon Dioxide 29 Anion Gap 8 BUN 31 H Creatinine 0.95 Est Cr Clr Drug Dosing 55.6 Est GFR ( Amer) 70.3 Est GFR (Non-Af Amer) 60.7 BUN/Creatinine Ratio 32.6 H Glucose 107 H Calcium 8.7 Nasal Screen MRSA (PCR) Adenovirus (PCR) B. pertussis DNA (PCR) B.parapertussis DNA PCR C. pneumoniae DNA (PCR) Coronavirus OC43 (PCR) Coronavirus HKU1 (PCR) Coronavirus 229E (PCR) SARS-CoV-2 (PCR) Coronavirus NL63 (PCR) Human Metapneumovir PCR Influenza Type A (PCR) Influenza Type B (PCR) Urine Legionella Ag M. pneumoniae (PCR) Parainfluenza 1 (PCR) Parainfluenza 2 (PCR) Parainfluenza 3 (PCR) Parainfluenza 4 (PCR) RSV (PCR) Entero/Rhino (PCR)
--- NOTE | 2021-10-16 16:09 | Discharge Summary ---
Date of Service October 16, 2021 Admission HPI Per Admitting Provider This is a 71-year-old female with past medical history significant for hypertension, Raynaud disease, pulmonary hypertension, GERD, dermatomyositis, interstitial lung disease, thought to be secondary to dermatomyositis, COPD, polyneuropathy, history of tobacco abuse, history of CVA, who lives alone at home, ambulates with a walker, comes because of shortness of breath. The patient says that last night she was short of breath. She is having cough, brings up some yellowish phlegm. She has lower extremity edema and some pain in the lower extremities. In the ER when she came in, she was saturating 81% on room air, currently on oxygen by nasal cannula 3 liters, she is saturating 92%. The patient denies any chest pain, no headache, no neck pain, no back pain, no abdominal pain, no earache, no runny nose, no sore throat. Appetite is okay. No difficulty swallowing. Denies any fevers. She has normal bowel and bladder movements. Currently, resting comfortably and hemodynamically stable Admission Exam Per Admitting Provider GENERAL: The patient is of moderate build, not in acute distress. VITAL SIGNS: Temperature 36.1, pulse 100, respiratory rate 26, blood pressure 146/91, oxygen 92% on 3 liters. HEENT: Pupils equal, round and reactive to light. Oral mucosa moist. NECK: No JVD or neck masses. CARDIOVASCULAR: S1 and S2 heard. Regular rate and rhythm. No murmur, no gallop. RESPIRATORY SYSTEM: Normal AP diameter. No accessory muscle use. No wheezing. Mild bibasilar coarse crackles. ABDOMEN: Soft, bowel sounds present, nontender, no distention. CENTRAL NERVOUS SYSTEM: Cranial nerves II through XII are grossly intact, nonfocal. EXTREMITIES: Bilateral lower extremity edema present with mild erythematous changes. Slightly more erythematous swelling of left foot. Principal Diagnosis 1) Acute hypoxic respiratory failure secondary to CHFpEF excerebation, ILD 2) Elevated high-sensitivity troponin likely demand ischemia 3) Hx of Dermatomyositis with ILD 4) Hx of HTN Discharge Exam Constitutional: WD/WN, vitals as above, NAD, sitting up in bed, pleasant, conversing easily. Not in acute distress. Head: Normocephalic, Atraumatic Eyes: PERRL, conjunctivae normal, anicteric sclerae ENMT: external ear and nose normal, oropharynx normal Neck: trachea midline, no thyromegaly normal visual inspection Respiratory:late inspiratory crackles at bases. Cardiovascular: RRR, no murmur, no edema Vessels: no JVD or carotid bruit Chest: normal inspection of chest Abdomen: normal bowel sounds, soft, nontender, no hepatosplenomegaly Musculoskeletal: no cyanosis or clubbing, extremities motor strength 5/5 Skin: no rashes, warm and dry normal turgor. 1+ pitting edema present at lower extremities Neurologic: PERRL, EOMI, accommodation nl, no face palsy, no dysarthria CN's II- XI intact bilaterally and moves all extremities Psychiatric: A+Ox3, euthymic affect Lymphatic: no cervical or axillary lymphadenopathy : deferred Discharge Data Allergies Allergy/AdvReac Type Severity Reaction Status Date / Time No Known Allergies Allergy Verified 09/06/21 21:10 Consultations 10/14/21 03:29 ED Decision to Admit Stat 10/14/21 08:00 Consult Cardiology Routine 10/14/21 16:30 Consult Pulmonology Routine Ordered Studies 10/14/21 04:52 CT chest diagnostic wo con Urgent US venous doppler LE Urgent Hospital Course (1) Acute respiratory failure with hypoxia: (2) CHF (congestive heart failure): (3) Elevated troponin: (4) Interstitial lung disease: Plan 71-year-old female with past medical history significant for hypertension, Raynaud disease, pulmonary hypertension, GERD, dermatomyositis, interstitial lung disease, thought to be secondary to dermatomyositis, COPD, polyneuropathy, history of tobacco abuse, history of CVA, who lives alone at home, ambulates with a walker, comes because of shortness of breath. Chest x-ray showed interval development of bibasilar opacities. CT chest showed interval development of opacities in bilateral lung bases and scattered groundglass opacities. Patient was evaluated by cardiology and pulmonology service. She was diuresed with Lasix resulting in significant improvement of her shortness of breath. She was started on Solu-Medrol by pulmonology service. Her infectious work-up during the hospitalization was negative. She underwent echo which showed EF of 50 to 55% with grade 1 diastolic dysfunction. She was started on spironolactone 12.5 once daily, Lasix 20 mg once daily and tapering dose of prednisone. The prescription were phone in to her [facility]. She was saturating well in room air on discharge. Her chest x-ray on the day of the discharge had shown significant improvement as well. Patient was asked to follow-up with cardiology and pulmonology service after discharge. Total Time Total Time Spent Total Time Spent (In Minutes): 40 Total Time Includes: Examination of the Patient, Discharge Planning, Medication Reconciliation, Communication With Other Providers and Other Discharge Plan Discharge Items Patient Disposition: Home - Self-Care Reason For Visit: SOB Discharge Diagnosis: 1) Acute hypoxic respiratory failure secondary to CHFpEF excerebation, ILD 2) Elevated high-sensitivity troponin likely demand ischemia 3) Hx of Dermatomyositis with ILD Activity: Resume your previous activity Non-emergency contact: Primary Care Provider Call non-emergency contact if: you have any medication questions Follow-up/Referrals: Abraham Calhoun MD [Physician] - Unruly Mcfadden MD [Physician] - Ryan Hatfield MD [Primary Care Provider] - Diet: Regular Addtl Attending Provider Instructions: We are adding following medications: 1) Spironolactone 12.5mg once daily. 2) Lasix 20mg once daily. 3) Prednisone 40mg once daily for 5 days, then 30mg once daily for 5 days, 20 mg once daily for 5 days, then 10 mg once daily for 5 days. Follow up with Pulmonology as outpatient. All the prescriptions were phone in to your [facility] pharmacy Continue taking all other medications as prescribed before. Follow up with your PCP in one week. Pending Studies at Discharge: No Stand-Alone Forms: My [facility], Smoking Cessation Medications and DC Order Prescriptions: Continued cholecalciferol (vitamin D3) 25 mcg (1,000 unit) tablet 25 mcg PO DAILY doxepin 50 mg capsule 50 - 150 mg PO HS PRN (Reason: Sleep) mycophenolate mofetil 500 mg tablet 1,000 mg PO BID gabapentin 100 mg capsule 100 mg PO TID atorvastatin 40 mg Tablet 40 mg PO QAM Qty: 30 0RF aspirin 81 mg Tablet,Delayed Release (Dr/Ec) 81 mg PO QAM Qty: 90 1RF levetiracetam [Keppra] 500 mg Tablet 500 mg PO BID Qty: 60 0RF clopidogrel [Plavix] 75 mg tablet 75 mg PO DAILY Qty: 30 0RF pantoprazole 40 mg tablet,delayed release (DR/EC) 40 mg PO DAILY Rx Instructions: per dr 1st Discontinued prednisone 20 mg tablet 20 mg PO DAILY Discharge Orders: Discharge Order (Routine); Ordered 10/16/21 Ordered By: Woo Rodríguez Admission Data Admit Date/Time: 10/14/21 04:22 Attending Provider: Woo Rodríguez Admit Provider: Rakesh Krishnamurthy Primary Care Provider: Ryan Hatfield Other Providers: Rakesh Krishnamurthy ; Devon Waldron ; Tiburcio Melo ; Unruly Mcfadden ; El Devine ; David Redman ; Werner Menard ; Gricelda Hoffman ; Mariann Herring ; Cathryn Piper ; Rod Awan ; Abraham Calhoun ; Jamaal Mathew Other Interventions: Discharge Summary Assessment (RN) Last Done: 10/16/21 13:12
[2021-10-18 19:02] LABS: Fungitell (1-3)-B-D-Glucan 369 pg/mL
== END 2021-10-16 15:05 | disposition home or self-care (01) | DRG 291 ==
LOC: ED 00:33 → SUATTDRO 04:22 → EDINP 04:22 → 2S 04:56

== ENCOUNTER 2022-05-08 09:23 | Inpatient (IN) ==
[2022-05-08] MEDS: SODIUM CHLORIDE 0.9% 1000ML 1,000 ML IV SCH ×2 (09:47→10:54)
--- NOTE | 2022-05-08 10:02 | Emergency Department Note ---
Impression & Plan Acute hypotension, Interstitial lung disease, Dermatomyositis, Rhabdomyolysis, Pulmonary hypertension, Elevated troponin ED Provider Note NAME: DESHAUN MUELLER AGE: 71 SEX: F ARRIVES VIA: Ambulance INFORMANT: Patient ED PROVIDER(S): Frederick Oswald MD CHIEF COMPLAINT: PLAN: Disposition: Admit MEDICAL DECISION MAKING: The patient is a pleasant 71-year-old woman with a past medical history of dermatomyositis, pulmonary hypertension, interstitial lung disease/COPD, hypertension, Raynaud's disease, polyneuropathy, history of tobacco abuse, history of CVA who presents to the emergency department via EMS from home for evaluation of generalized weakness with cough/congestion and shortness of breath over the past couple of days. She denies having any fevers. She reports she has clear thick sputum. She reports 1 episode of vomiting yesterday. She otherwise denies diarrhea or urinary symptoms. On arrival the patient is uncomfortable, fatigued but no acute distress, afebrile with blood pressure 70s/50s, mentating normally and vital signs otherwise stable. She appears clinically dry. Lungs diminished at bases and otherwise clear. EKG without overt acute ischemia. CXR demonstrates cardiomegaly with emphysema and prominence of pulmonary vasculature. Additional note is made of small pleural effusions with dependent consolidation which may reflect atelectasis versus superimposed pneumonia. WBC 9.7, within normal limits. H/H similar to prior. Platelets within normal limits. Chemistry without metabolic acidosis. BUN/creatinine> 20 consistent with patient's clinically dry appearance. Magnesium 1.5 with repletion provided. LFTs similar to prior. CPK 1800 in the setting of the patient history of dermatomyositis. High-sensitivity troponin 397, nonspecific and similar to prior elevation. BNP mildly elevated at 110, nonspecific. Lipase is not elevated. Procalcitonin is not elevated. Respiratory viral panel/bio fire was negative. CTA chest was performed and was negative for PE. Emphysema is noted. Bronchiectasis with stable peripheral interstitial thickening and bibasilar opacities is noted and may reflect interstitial lung disease versus superimposed pneumonia. Given the patient's symptoms sputum production and hypotension on presentation blood cultures were drawn and the patient was treated empirically with Zosyn. Blood pressure stable following IV fluid hydration with 30cc/kg NSS. Case was discussed with Angelica Hinojosa PAC, with Dr. Ed Dominguez hospitalist who will evaluate the patient for admission. Triage Nursing notes reviewed and agree them. Prior/outside medical records reviewed Vital Signs: reviewed Differential diagnosis: Infection, dehydration, metabolic abnormality, hypo/hyperglycemia, electrolyte disturbance, anemia, hypoxia, cardiac sources, intracerebral event, toxicologic, neurologic, as well as other pathologies. ER treatment provided: See below. Diagnostics interpreted by me: ECG: Sinus rhythm with occasional PVCs, 93 bpm, LVH, no overt ST elevation or depression, QTc 447, QRS 96. Cardiac Monitoring: An order for continuous cardiac monitoring was placed and demonstrated Sinus rhythm with occasional PVCs, 93 bpm. Laboratory studies: See below Imaging studies: See below Consultation(s): Case was discussed with Janet Cotton, Angelica PAC, with Dr. Ed griffith who will evaluate the patient for admission. HPI: The patient is a pleasant 71-year-old woman with a past medical history of dermatomyositis, pulmonary hypertension, interstitial lung disease/COPD, hyp ertension, Raynaud's disease, polyneuropathy, history of tobacco abuse, history of CVA who presents to the emergency department via EMS from home for evaluation of generalized weakness with cough/congestion and shortness of breath over the past couple of days. She denies having any fevers. She reports she has clear thick sputum. She reports 1 episode of vomiting yesterday. She otherwise denies diarrhea or urinary symptoms. ROS: See above HPI for pertinent positives & negatives. A total of 10 systems reviewed and were otherwise negative. VITALS:See Below PHYSICAL EXAMINATION: GENERAL: Awake, alert, uncomfortable-appearing, in no distress HENT: Normocephalic, atraumatic. Oropharynx with dry mucous membranes and otherwise unremarkable. EYES: Normal conjunctiva. Sclera non-icteric. NECK: Supple. No nuchal rigidity. FROM. No JVD. RESPIRATORY: Lungs diminished at bases and otherwise clear. CARDIAC: Regular rate, normal rhythm. Extremities warm and well perfused. Pulses equal. ABDOMEN: Soft, non-distended. No tenderness to palpation. No rebound or guarding. No masses. RECTAL: Deferred. MUSCULOSKELETAL: Chest examination reveals no tenderness. The back is symmetrical on inspection without obvious abnormality. There is no CVA tenderness to palpation. No joint edema. LOWER EXTREMITIES: Calves are equal size bilaterally and non-tender. No edema. No discoloration. NEURO: Normal sensorium. No focal sensory or motor deficits noted. SKIN: No rash or jaundice noted. ED COURSE: Critical Care: I have personally spent greater than 75 minutes of critical care time in the direct management of this patient. This includes bedside care, interpretation of diagnostic studies, and testing, discussion with consultants, patient, and family members, and other required patient management activities. This 75 minutes is in excess of all separately billable procedures. Frederick Oswald MD Past Med/Surg History Medical History (Updated 05/08/22 @ 21:52 by Frederick Oswald MD) Acute dyspnea Acute metabolic encephalopathy Acute respiratory failure with hypoxia Anemia Aspiration pneumonia DVT prophylaxis Elevated troponin History of CVA (cerebrovascular accident) History of seizures Pneumonia Pulmonary hypertension Shortness of breath UTI (urinary tract infection) Weakness Surgical History History of hysterectomy Social History Smoking Status: Former smoker Tobacco Type: Cigarettes Second Hand Exposure: No; Hx Alcohol Use: No Hx Substance Use: No Preferred Language: Korean Communication Ability: Effective Head Automatic Sawyer Required: No Beliefs That Will Affect Care: None marital status: Single Current Living Situation: Alone Current Living Situation Comment: At home byself recently enrolled in home health Feels Safe at Home: Yes Safety Concerns: Feels Safe At This Time Assistive Devices: Denture - Upper, Denture - Lower and Walker Allergies Allergies Allergy/AdvReac Type Severity Reaction Status Date / Time No Known Allergies Allergy Verified 09/06/21 21:10 Home Meds Home Medications Medication Instructions Recorded Confirmed doxepin 50 mg capsule 50 - 150 mg PO HS PRN Sleep 12/03/18 05/08/22 gabapentin 100 mg capsule 100 mg PO TID 12/03/18 05/08/22 mycophenolate mofetil 500 mg tablet 1,000 mg PO BID 12/03/18 05/08/22 furosemide 20 mg tablet (Lasix) 20 mg 3XWK 05/08/22 05/08/22 potassium 20 mg chewable tablet 10 mg PO 3XWK 05/08/22 05/08/22 spironolactone 25 mg tablet 25 mg PO DAILY 05/08/22 05/08/22 (Aldactone) Previous Rx's Medication Instructions Recorded aspirin 81 mg tablet,delayed 81 mg PO QAM #90 tabs 08/30/20 release atorvastatin 40 mg tablet 40 mg PO QAM #30 tabs 08/30/20 clopidogrel 75 mg tablet (Plavix) 75 mg PO DAILY #30 tabs 08/30/20 levetiracetam 500 mg tablet 500 mg PO BID #60 tabs 08/30/20 (Keppra) Results & Data (ED) Vital Signs Vital Signs - 24 hr 05/08/22 09:31 05/08/22 09:31 05/08/22 09:31 Temperature 36.8 C Temperature Source Oral Oral Pulse Rate 92 H Pulse Rate [Right Finger] Pulse Rate from SpO2 Sensor Pulse Rhythm Respiratory Rate 18 Respiratory Effort / Characteristics Respiratory Depth Respiratory Pattern Blood Pressure 77/51 L Blood Pressure [Left Arm] Blood Pressure Mean 59 Blood Pressure Mean [Left Arm] Blood Pressure Position Sitting Blood Pressure Position [Left Arm] Pulse Oximetry 97 Oxygen Delivery Method Room Air Room Air Sepsis Recent Fever Within 48 Hours No Sepsis New/Unexplained Change in Mental Status No Sepsis Action Taken by Nursing No Action Required 05/08/22 09:39 05/08/22 09:51 05/08/22 09:51 Temperature Temperature Source Oral Pulse Rate 90 Pulse Rate [Right Finger] Pulse Rate from SpO2 Sensor Pulse Rhythm Respiratory Rate Respiratory Effort / Characteristics Respiratory Depth Respiratory Pattern Blood Pressure Blood Pressure [Left Arm] Blood Pressure Mean Blood Pressure Mean [Left Arm] Blood Pressure Position Blood Pressure Position [Left Arm] Pulse Oximetry Oxygen Delivery Method Room Air Sepsis Recent Fever Within 48 Hours Sepsis New/Unexplained Change in Mental Status Sepsis Action Taken by Nursing 05/08/22 11:04 05/08/22 11:05 05/08/22 10:54 Temperature 36.8 C Temperature Source Oral Pulse Rate 92 H 91 H Pulse Rate [Right Finger] 90 Pulse Rate from SpO2 Sensor 91 H Pulse Rhythm Regular Respiratory Rate 20 20 26 H Respiratory Effort / Characteristics Non-Labored Spontaneous Respiratory Depth Normal Respiratory Pattern Regular Blood Pressure Blood Pressure [Left Arm] 113/58 L Blood Pressure Mean Blood Pressure Mean [Left Arm] 76 Blood Pressure Position Blood Pressure Position [Left Arm] Lying Pulse Oximetry 95 93 95 Oxygen Delivery Method Room Air Room Air Sepsis Recent Fever Within 48 Hours Sepsis New/Unexplained Change in Mental Status Sepsis Action Taken by Nursing 05/08/22 11:00 05/08/22 11:00 05/08/22 11:10 Temperature Temperature Source Pulse Rate 90 90 Pulse Rate [Right Finger] Pulse Rate from SpO2 Sensor 90 90 Pulse Rhythm Respiratory Rate 29 H 27 H Respiratory Effort / Characteristics Respiratory Depth Respiratory Pattern Blood Pressure 113/58 L Blood Pressure [Left Arm] Blood Pressure Mean 76 Blood Pressure Mean [Left Arm] Blood Pressure Position Blood Pressure Position [Left Arm] Pulse Oximetry 94 93 Oxygen Delivery Method Sepsis Recent Fever Within 48 Hours Sepsis New/Unexplained Change in Mental Status Sepsis Action Taken by Nursing 05/08/22 11:20 05/08/22 11:30 05/08/22 11:30 Temperature Temperature Source Pulse Rate 92 H 90 Pulse Rate [Right Finger] Pulse Rate from SpO2 Sensor 92 H 90 Pulse Rhythm Respiratory Rate 26 H 26 H Respiratory Effort / Characteristics Respiratory Depth Respiratory Pattern Blood Pressure 109/60 Blood Pressure [Left Arm] Blood Pressure Mean 76 Blood Pressure Mean [Left Arm] Blood Pressure Position Blood Pressure Position [Left Arm] Pulse Oximetry 94 95 Oxygen Delivery Method Sepsis Recent Fever Within 48 Hours Sepsis New/Unexplained Change in Mental Status Sepsis Action Taken by Nursing 05/08/22 12:08 05/08/22 12:11 05/08/22 12:20 Temperature Temperature Source Pulse Rate 85 89 85 Pulse Rate [Right Finger] Pulse Rate from SpO2 Sensor 85 90 86 Pulse Rhythm Respiratory Rate 9 L 28 H 24 Respiratory Effort / Characteristics Respiratory Depth Respiratory Pattern Blood Pressure Blood Pressure [Left Arm] Blood Pressure Mean Blood Pressure Mean [Left Arm] Blood Pressure Position Blood Pressure Position [Left Arm] Pulse Oximetry 95 99 97 Oxygen Delivery Method Sepsis Recent Fever Within 48 Hours Sepsis New/Unexplained Change in Mental Status Sepsis Action Taken by Nursing Laboratory Data Attestation: I reviewed the patient's lab results. 05/08/22 10:17 05/08/22 10:17 Lab Results 05/08/22 05/08/22 05/08/22 Range/Units 09:50 10:17 10:17 WBC 9.77 (4.8-10.8) K/ul RBC 3.79 L (4.20-5.40) M/uL Hgb 10.1 L (12.0-16.0) g/dl Hct 32.9 L (37.0-47.0) % MCV 86.8 (80.0-100.0) fL MCH 26.6 (25.0-34.0) pg MCHC 30.7 L (32.0-36.0) g/dL RDW Std Deviation 49.1 H (36.4-46.3) fL RDW Coeff of Myra 15.5 H (11.5-14.5) % Plt Count 226 (130-400) K/uL MPV 11.5 (9.4-12.4) fL Immature Gran % (Auto) 0.6 % Neut % (Auto) 88.9 % Lymph % (Auto) 5.5 % [place] % (Auto) 4.3 % Eos % (Auto) 0.4 % Baso % (Auto) 0.3 % Neut # (Auto) 8.68 H (1.40-6.50) K/uL Lymph # (Auto) 0.54 L (1.2-3.4) K/uL [place] # (Auto) 0.42 (0.11-0.59) K/uL Eos # (Auto) 0.04 (0-0.50) K/uL Baso # (Auto) 0.03 (0-0.2) K/uL Immature Gran # (Auto) 0.06 (0.01-0.20) K/uL ESR (0-30) mm/hr PT (9.0-12.0) Seconds INR (0.9-1.1) Sodium 134 L (136-145) mmol/L Potassium 3.7 (3.5-5.1) mmol/L Chloride 103 (98-107) mmol/L Carbon Dioxide 25 (21-32) mmol/L Anion Gap 6 (3-11) BUN 15 (6-23) mg/dl Creatinine 0.59 L (0.6-1.2) mg/dl Est Cr Clr Drug Dosing 73.4 ml/min Est GFR ( Amer) 107.6 ml/min Est GFR (Non-Af Amer) 92.9 ml/min BUN/Creatinine Ratio 25.4 H (10-20) Glucose 75 (70-99(Fasting)) mg/dl Lactate (0.4-2.0) mmol/L Calcium 7.2 L (8.5-10.1) mg/dl Phosphorus (2.5-4.9) mg/dl Magnesium 1.5 L (1.7-2.4) mg/dl Total Bilirubin 0.6 (0.2-1.0) mg/dl Direct Bilirubin 0.1 (0-0.2) mg/dl AST 102 H (13-39) U/L ALT 69 H (7-52) U/L Alkaline Phosphatase 48 (34-104) U/L Total Creatine Kinase (26-192) U/L Troponin I High Sens 397.7 H* (0-14) pg/ml B-Natriuretic Peptide (0-100) pg/ml Total Protein 4.7 L (6.0-8.3) gm/dl Albumin 2.3 L (3.4-5.0) gm/dl Lipase (11-82) U/L Procalcitonin (0-0.5) ng/ml Adenovirus (PCR) Not Detected (NotDetected) B. pertussis DNA (PCR) Not Detected (NotDetected) B.parapertussis DNA PCR Not Detected (NotDetected) C. pneumoniae DNA (PCR) Not Detected (NotDetected) Coronavirus OC43 (PCR) Not Detected (NotDetected) Coronavirus HKU1 (PCR) Not Detected (NotDetected) Coronavirus 229E (PCR) Not Detected (NotDetected) SARS-CoV-2 (PCR) Not Detected (NotDetected) Coronavirus NL63 (PCR) Not Detected (NotDetected) Human Metapneumovir PCR Not Detected (NotDetected) Influenza Type A (PCR) Not Detected (NotDetected) Influenza Type B (PCR) Not Detected (NotDetected) M. pneumoniae (PCR) Not Detected (NotDetected) Parainfluenza 1 (PCR) Not Detected (NotDetected) Parainfluenza 2 (PCR) Not Detected (NotDetected) Parainfluenza 3 (PCR) Not Detected (NotDetected) Parainfluenza 4 (PCR) Not Detected (NotDetected) RSV (PCR) Not Detected (NotDetected) Entero/Rhino (PCR) Not Detected (NotDetected) 05/08/22 05/08/22 05/08/22 Range/Units 10:17 10:17 10:17 WBC (4.8-10.8) K/ul RBC (4.20-5.40) M/uL Hgb (12.0-16.0) g/dl Hct (37.0-47.0) % MCV (80.0-100.0) fL MCH (25.0-34.0) pg MCHC (32.0-36.0) g/dL RDW Std Deviation (36.4-46.3) fL RDW Coeff of Myra (11.5-14.5) % Plt Count (130-400) K/uL MPV (9.4-12.4) fL Immature Gran % (Auto) % Neut % (Auto) % Lymph % (Auto) % [place] % (Auto) % Eos % (Auto) % Baso % (Auto) % Neut # (Auto) (1.40-6.50) K/uL Lymph # (Auto) (1.2-3.4) K/uL [place] # (Auto) (0.11-0.59) K/uL Eos # (Auto) (0-0.50) K/uL Baso # (Auto) (0-0.2) K/uL Immature Gran # (Auto) (0.01-0.20) K/uL ESR (0-30) mm/hr PT (9.0-12.0) Seconds INR (0.9-1.1) Sodium (136-145) mmol/L Potassium (3.5-5.1) mmol/L Chloride (98-107) mmol/L Carbon Dioxide (21-32) mmol/L Anion Gap (3-11) BUN (6-23) mg/dl Creatinine (0.6-1.2) mg/dl Est Cr Clr Drug Dosing ml/min Est GFR ( Amer) ml/min Est GFR (Non-Af Amer) ml/min BUN/Creatinine Ratio (10-20) Glucose (70-99(Fasting)) mg/dl Lactate 1.9 (0.4-2.0) mmol/L Calcium (8.5-10.1) mg/dl Phosphorus 3.0 (2.5-4.9) mg/dl Magnesium (1.7-2.4) mg/dl Total Bilirubin (0.2-1.0) mg/dl Direct Bilirubin 0.2 (0-0.2) mg/dl AST (13-39) U/L ALT (7-52) U/L Alkaline Phosphatase (34-104) U/L Total Creatine Kinase 1879 H (26-192) U/L Troponin I High Sens (0-14) pg/ml B-Natriuretic Peptide (0-100) pg/ml Total Protein (6.0-8.3) gm/dl Albumin (3.4-5.0) gm/dl Lipase 10 L (11-82) U/L Procalcitonin 0.22 (0-0.5) ng/ml Adenovirus (PCR) (NotDetected) B. pertussis DNA (PCR) (NotDetected) B.parapertussis DNA PCR (NotDetected) C. pneumoniae DNA (PCR) (NotDetected) Coronavirus OC43 (PCR) (NotDetected) Coronavirus HKU1 (PCR) (NotDetected) Coronavirus 229E (PCR) (NotDetected) SARS-CoV-2 (PCR) (NotDetected) Coronavirus NL63 (PCR) (NotDetected) Human Metapneumovir PCR (NotDetected) Influenza Type A (PCR) (NotDetected) Influenza Type B (PCR) (NotDetected) M. pneumoniae (PCR) (NotDetected) Parainfluenza 1 (PCR) (NotDetected) Parainfluenza 2 (PCR) (NotDetected) Parainfluenza 3 (PCR) (NotDetected) Parainfluenza 4 (PCR) (NotDetected) RSV (PCR) (NotDetected) Entero/Rhino (PCR) (NotDetected) 05/08/22 05/08/22 05/08/22 Range/Units 10:17 10:17 10:19 WBC (4.8-10.8) K/ul RBC (4.20-5.40) M/uL Hgb (12.0-16.0) g/dl Hct (37.0-47.0) % MCV (80.0-100.0) fL MCH (25.0-34.0) pg MCHC (32.0-36.0) g/dL RDW Std Deviation (36.4-46.3) fL RDW Coeff of Myra (11.5-14.5) % Plt Count (130-400) K/uL MPV (9.4-12.4) fL Immature Gran % (Auto) % Neut % (Auto) % Lymph % (Auto) % [place] % (Auto) % Eos % (Auto) % Baso % (Auto) % Neut # (Auto) (1.40-6.50) K/uL Lymph # (Auto) (1.2-3.4) K/uL [place] # (Auto) (0.11-0.59) K/uL Eos # (Auto) (0-0.50) K/uL Baso # (Auto) (0-0.2) K/uL Immature Gran # (Auto) (0.01-0.20) K/uL ESR 22 (0-30) mm/hr PT 13.5 H (9.0-12.0) Seconds INR 1.3 H (0.9-1.1) Sodium (136-145) mmol/L Potassium (3.5-5.1) mmol/L Chloride (98-107) mmol/L Carbon Dioxide (21-32) mmol/L Anion Gap (3-11) BUN (6-23) mg/dl Creatinine (0.6-1.2) mg/dl Est Cr Clr Drug Dosing ml/min Est GFR ( Amer) ml/min Est GFR (Non-Af Amer) ml/min BUN/Creatinine Ratio (10-20) Glucose (70-99(Fasting)) mg/dl Lactate (0.4-2.0) mmol/L Calcium (8.5-10.1) mg/dl Phosphorus (2.5-4.9) mg/dl Magnesium (1.7-2.4) mg/dl Total Bilirubin (0.2-1.0) mg/dl Direct Bilirubin (0-0.2) mg/dl AST (13-39) U/L ALT (7-52) U/L Alkaline Phosphatase (34-104) U/L Total Creatine Kinase (26-192) U/L Troponin I High Sens (0-14) pg/ml B-Natriuretic Peptide 110 H (0-100) pg/ml Total Protein (6.0-8.3) gm/dl Albumin (3.4-5.0) gm/dl Lipase (11-82) U/L Procalcitonin (0-0.5) ng/ml Adenovirus (PCR) (NotDetected) B. pertussis DNA (PCR) (NotDetected) B.parapertussis DNA PCR (NotDetected) C. pneumoniae DNA (PCR) (NotDetected) Coronavirus OC43 (PCR) (NotDetected) Coronavirus HKU1 (PCR) (NotDetected) Coronavirus 229E (PCR) (NotDetected) SARS-CoV-2 (PCR) (NotDetected) Coronavirus NL63 (PCR) (NotDetected) Human Metapneumovir PCR (NotDetected) Influenza Type A (PCR) (NotDetected) Influenza Type B (PCR) (NotDetected) M. pneumoniae (PCR) (NotDetected) Parainfluenza 1 (PCR) (NotDetected) Parainfluenza 2 (PCR) (NotDetected) Parainfluenza 3 (PCR) (NotDetected) Parainfluenza 4 (PCR) (NotDetected) RSV (PCR) (NotDetected) Entero/Rhino (PCR) (NotDetected) Administered Medications Enoxaparin Sodium (Enoxaparin Inj 40 Mg/0.4 Ml Syr) 40 mg SQ Q24H JONATHAN Stop: 06/07/22 16:59 Last Admin: 05/08/22 18:13 Dose: 40 mg Documented By: ISA Gabapentin (Gabapentin 100 Mg Cap) 100 mg PO TID JONATHAN Stop: 06/07/22 13:59 Last Admin: 05/08/22 21:23 Dose: 100 mg Documented By: Admin: 05/08/22 14:10 Dose: 100 mg Documented By: CHARLY Guaifenesin (Guaifenesin 600 Mg Tabcr) 1,200 mg PO Q12 JONATHAN Stop: 06/07/22 20:59 Last Admin: 05/08/22 21:23 Dose: 1,200 mg Documented By: TP Ceftriaxone Sodium 2,000 mg/ (Dextrose) 70 mls @ 100 mls/hr IV Q24H JONATHAN; Protocol Stop: 05/15/22 12:59 Last Infusion: 05/08/22 14:22 Dose: 0 mls/hr Documented By: Admin: 05/08/22 13:23 Dose: 100 mls/hr Documented By: CHARLY Doxycycline Hyclate 100 mg/ (Dextrose) 110 mls @ 50 mls/hr IV Q12H JONATHAN Stop: 05/15/22 13:59 Last Infusion: 05/08/22 16:25 Dose: 0 mls/hr Documented By: Admin: 05/08/22 14:11 Dose: 50 mls/hr Documented By: CHARLY Methylprednisolone 60 mg/ (Syringe) 0.96 mls @ 1.5 mls/min IV DAILY JONATHAN Stop: 05/11/22 17:29 Last Admin: 05/08/22 18:13 Dose: 1.5 mls/min Documented By: ISA Levetiracetam (Levetiracetam 500 Mg Tab) 500 mg PO BID JONAHTAN Stop: 06/07/22 20:59 Last Admin: 05/08/22 21:24 Dose: 500 mg Documented By: TP Mycophenolate Mofetil (Mycophenolate Mofetil 250 Mg Cap) 1,000 mg PO BID JONATHAN Stop: 06/07/22 20:59 Last Admin: 05/08/22 21:23 Dose: 1,000 mg Documented By: TP Discontinued Medications Sodium Chloride (Nss 1000ml) 1,000 mls @ 999 mls/hr IV .Q1H1M JONATHAN Stop: 05/08/22 11:45 Last Infusion: 05/08/22 12:39 Dose: 0 mls/hr Documented By: Admin: 05/08/22 10:54 Dose: 999 mls/hr Documented By: Infusion: 05/08/22 10:48 Dose: 999 mls/hr Documented By: Admin: 05/08/22 09:47 Dose: 999 mls/hr Documented By: STACEY Magnesium Sulfate/Dextrose (Magnesium Sulfate / D5w) 1 gm in 100 mls @ 100 mls/hr IV Q1H JONATHAN Stop: 05/08/22 13:16 Last Infusion: 05/08/22 14:53 Dose: 0 mls/hr Documented By: Admin: 05/08/22 13:15 Dose: 100 mls/hr Documented By: Infusion: 05/08/22 12:33 Dose: 100 mls/hr Documented By: Admin: 05/08/22 11:33 Dose: 100 mls/hr Documented By: CHARLY Piperacillin Sod/Tazobactam Sod (Zosyn) 4.5 gm in 120 mls @ 240 mls/hr IV NOW ONE Stop: 05/08/22 11:48 Last Infusion: 05/08/22 12:13 Dose: 0 mls/hr Documented By: Admin: 05/08/22 11:31 Dose: 240 mls/hr Documented By: CHARLY Ioversol (Optiray 320 125ml) 115 ml IV ONCE ONE Stop: 05/08/22 11:47 Last Admin: 05/08/22 11:52 Dose: 115 ml Documented By: ZENOBIA Imaging Data Radiologist's Impression: Chest X-Ray 05/08/22 09:42 SINGLE VIEW CHEST CLINICAL HISTORY: Sepsis. FINDINGS: An AP, portable, upright chest radiograph is compared to study dated 10/16/2021 and correlated with chest CT dated 10/14/2021. The heart is enlarged noting atherosclerotic calcification of the thoracic aorta. There is prominence of the pulmonary vasculature. Emphysema and chronic interstitial thickening is similar to previous. There are small pleural effusions with dependent consolidation. No pneumothorax is seen. The skeletal structures are osteopenic. The bony thorax is grossly intact. Arthritic change is noted in the shoulders. Cholecystectomy clips are seen in the right upper quadrant. IMPRESSION: 1. Cardiomegaly and emphysema with prominence of the pulmonary vasculature. Correlate clinically for evidence of fluid overload/congestive change. 2. Small pleural effusions with dependent consolidation. This likely represents atelectasis. Correlate clinically for evidence of a superimposed pneumonia/aspiration pneumonitis. Radiographic follow-up to resolution is recommended. ACT 112: Negative or not required by law. Electronically signed by: Ziyad Estrella M.D. 05/08/2022 10:03 AM Chest CTA 05/08/22 11:17 CHEST CTA for PULMONARY ARTERIES CT DOSE: 380.89 mGycm HISTORY: Elevated troponin, hypotension, sob, r/o PE TECHNIQUE: Multiaxial CT images of the chest were performed following the intravenous administration of contrast to evaluate the pulmonary arteries. Maximal intensity projection images were also obtained. A dose lowering technique was utilized adhering to the principles of ALARA. COMPARISON STUDY: Chest CT 10/14/2021. FINDINGS: No evidence for an aortic dissection. The ascending thoracic aorta measures up to 3.7 cm in diameter, unchanged. The heart remains top normal in size. 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 This favors a right-sided subclavian steal syndrome. Nondiagnostic evaluation of the right lower lower lobe and lingular subsegmental pulmonary arteries due to the motion artifact. However, the remaining pulmonary arteries show no filling defects to suggest a pulmonary embolus. No acute fractures identified. No pneumothorax. The central airways are patent. Emphysema again noted. Chronic subpleural interstitial thickening remains unchanged. Mild bronchiectasis with bibasilar peripheral airspace opacities most pronounced within the base the right lower lobe also persists. This favors chronic interstitial lung disease/fibrotic change. A superimposed pneumonia would be difficult to exclude. No pleural or pericardial effusions. There are low lung volumes. Limited views of the upper abdomen demonstrate a normal liver, spleen, and adrenal glands. Normal esophagus. Stable mild mediastinal lymphadenopathy. No hilar lymphadenopathy. This may be chronic. IMPRESSION: 1. No evidence for a pulmonary embolus with limitations as described above. 2. Emphysema. 3. Mild bronchiectasis with stable peripheral interstitial thickening and bibasilar airspace opacities. This favors chronic interstitial lung disease/fibrotic change. A superimposed pneumonia would be difficult to exclude. 4. Stable mild mediastinal lymphadenopathy. ACT 112: Negative or not required by law. Electronically signed by: Joce Walsh M.D. 05/08/2022 12:24 PM Discharge Plan Visit Data Chief Complaint: Illness Stated Complaint: weakness ED Provider: Frederick Oswald Discharge Problem: Acute hypotension, Interstitial lung disease, Dermatomyositis, Rhabdomyolysis, Pulmonary hypertension, Elevated troponin Patient Disposition: Admitted As Inpatient Discharge Instructions Interventions: ED Discharge Assessment Last Done: 05/08/22 14:52
--- NOTE | 2022-05-08 10:04 | XRay Report ---
SINGLE VIEW CHEST CLINICAL HISTORY: Sepsis. FINDINGS: An AP, portable, upright chest radiograph is compared to study dated 10/16/2021 and correlat ed with chest CT dated 10/14/2021. The heart is enlarged noting atherosclerotic calcification of the t horacic aorta. There is prominence of the pulmonary vasculature. Emphysema and chronic interstitial t hickening is similar to previous. There are small pleural effusions with dependent consolidation. No pneumothorax is seen. The skeletal structures are osteopenic. The bony thorax is grossly intact. Arth ritic change is noted in the shoulders. Cholecystectomy clips are seen in the right upper quadrant. IMPRESSION: 1. Cardiomegaly and emphysema with prominence of the pulmonary vasculature. Correlate clinically for evidence of fluid overload/congestive change. 2. Small pleural effusions with dependent consolidation. This likely represents atelectasis. Correlat e clinically for evidence of a superimposed pneumonia/aspiration pneumonitis. Radiographic follow-up to resolution is recommended. ACT 112: Negative or not required by law. Electronically signed by: Ziyad Estrella M.D. 05/08/2022 10:03 AM
[2022-05-08 10:35] LABS: Basophils # (auto) 0.03 K/uL (0-0.2); Basophils % (auto) 0.3 %; Eosinophils # (auto) 0.04 K/uL (0-0.50); Eosinophils % (auto) 0.4 %; Hematocrit (blood only) 32.9 % (37.0-47.0); Hemoglobin 10.1 g/dl (12.0-16.0); Immature Granulocytes # (auto) 0.06 K/uL (0.01-0.20); Immature Granulocytes % (auto) 0.6 %; Lymphocytes # (auto) 0.54 K/uL (1.2-3.4); Lymphocytes % (auto) 5.5 %; Mean Corpuscular Hemoglobin 26.6 pg (25.0-34.0); Mean Corpuscular Hgb Conc 30.7 g/dL (32.0-36.0); Mean Corpuscular Volume 86.8 fL (80.0-100.0); Mean Platelet Volume 11.5 fL (9.4-12.4); Monocytes # (auto) 0.42 K/uL (0.11-0.59); Monocytes % (auto) 4.3 %; Neutrophils # (auto) 8.68 K/uL (1.40-6.50); Neutrophils % (auto) 88.9 %; Platelet Count 226 K/uL (130-400); RDW Coefficient of Variation 15.5 % (11.5-14.5); RDW Standard Deviation 49.1 fL (36.4-46.3); Red Blood Count 3.79 M/uL (4.20-5.40); White Blood Count 9.77 K/ul (4.8-10.8)
[2022-05-08 10:51] LABS: Bilirubin Direct 0.2 mg/dl (0-0.2)
[2022-05-08 10:53] LABS: Albumin Level 2.3 gm/dl (3.4-5.0); BUN Creatinine Ratio 25.4 (10-20); Bilirubin Direct 0.1 mg/dl (0-0.2); Bilirubin,Total 0.6 mg/dl (0.2-1.0); Calcium 7.2 mg/dl (8.5-10.1); Creatinine Clr Calc Pharmacy 73.4 ml/min; Est GFR (African American) 107.6 ml/min; Est GFR (Non-African American) 92.9 ml/min; Magnesium 1.5 mg/dl (1.7-2.4); Potassium 3.7 mmol/L (3.5-5.1); Total Protein 4.7 gm/dl (6.0-8.3)
[2022-05-08 11:08] LABS: INR 1.3 (0.9-1.1); Prothrombin Time 13.5 Seconds (9.0-12.0)
[2022-05-08 11:09] LABS: Adenovirus PCR Not Detected (NotDetected); Bordetella parapertussis PCR Not Detected (NotDetected); Bordetella pertussis PCR Not Detected (NotDetected); Chlamydia pneumoniae PCR Not Detected (NotDetected); Coronavirus 229E PCR Not Detected (NotDetected); Coronavirus CoV-2 (COVID19)PCR Not Detected (NotDetected); Coronavirus HKU1 PCR Not Detected (NotDetected); Coronavirus NL63 PCR Not Detected (NotDetected); Coronavirus OC43PCR Not Detected (NotDetected); Human Metapneumovirus PCR Not Detected (NotDetected); Influenza A PCR Not Detected (NotDetected); Influenza B PCR Not Detected (NotDetected); Mycoplasma pneumoniae PCR Not Detected (NotDetected); Parainfluenza Virus 1 PCR Not Detected (NotDetected); Parainfluenza Virus 2 PCR Not Detected (NotDetected); Parainfluenza Virus 3 PCR Not Detected (NotDetected); Parainfluenza Virus 4 PCR Not Detected (NotDetected); Respiratory Syncytial VirusPCR Not Detected (NotDetected); Rhinovirus/Enterovirus PCR Not Detected (NotDetected)
[2022-05-08 11:10] LABS: Troponin I High Sensitivity 397.7 pg/ml (0-14)
[2022-05-08] MEDS ORDERED: PIPERACILLIN/TAZOBACTAM 4.5 GM/120 ML BAG IV ONE (11:19)
[2022-05-08] MEDS: MAGNESIUM SULFATE / D5W 1 GM/100 ML BAG IV SCH ×2 (11:33→13:15)
[2022-05-08] MEDS ORDERED: OPTIRAY 320 125ml IV ONE (11:46)
--- NOTE | 2022-05-08 12:25 | CT Scan Report ---
CHEST CTA for PULMONARY ARTERIES CT DOSE: 380.89 mGycm HISTORY: Elevated troponin, hypotension, sob, r/o PE TECHNIQUE: Multiaxial CT images of the chest were performed following the intravenous administration of contrast to evaluate the pulmonary arteries. Maximal intensity projection images were also obtaine d. A dose lowering technique was utilized adhering to the principles of ALARA. COMPARISON STUDY: Chest CT 10/14/2021. FINDINGS: No evidence for an aortic dissection. The ascending thoracic aorta measures up to 3.7 cm in diameter, unchanged. The heart remains top normal in size. There is chronic occlusion at the brachio cephalic artery with immediate reconstitution of flow at the proximal subclavian and carotid arteries . This favors a right-sided subclavian steal syndrome. Nondiagnostic evaluation of the right lower lo wer lobe and lingular subsegmental pulmonary arteries due to the motion artifact. However, the remain ing pulmonary arteries show no filling defects to suggest a pulmonary embolus. No acute fractures rosette ntified. No pneumothorax. The central airways are patent. Emphysema again noted. Chronic subpleural i nterstitial thickening remains unchanged. Mild bronchiectasis with bibasilar peripheral airspace opac ities most pronounced within the base the right lower lobe also persists. This favors chronic interst itial lung disease/fibrotic change. A superimposed pneumonia would be difficult to exclude. No pleura l or pericardial effusions. There are low lung volumes. Limited views of the upper abdomen demonstrat e a normal liver, spleen, and adrenal glands. Normal esophagus. Stable mild mediastinal lymphadenopat hy. No hilar lymphadenopathy. This may be chronic. IMPRESSION: 1. No evidence for a pulmonary embolus with limitations as described above. 2. Emphysema. 3. Mild bronchiectasis with stable peripheral interstitial thickening and bibasilar airspace opacitie s. This favors chronic interstitial lung disease/fibrotic change. A superimposed pneumonia would be d ifficult to exclude. 4. Stable mild mediastinal lymphadenopathy. ACT 112: Negative or not required by law. Electronically signed by: Joce Walsh M.D. 05/08/2022 12:24 PM
[2022-05-08] MEDS ORDERED: POLYETHYLENE (MIRALAX) 17 GM PACK PO PRN (12:28)
[2022-05-08] MEDS ORDERED: ONDANSETRON INJ 2 MG/ML 2 ML VIAL IV PRN (12:28)
[2022-05-08] MEDS ORDERED: ACETAMINOPHEN 325 MG TAB PO PRN (12:28)
[2022-05-08] MEDS ORDERED: ALUMINUM/MAGNESIUM SUSP 30 ML UDC PO PRN (12:28)
[2022-05-08] MEDS ORDERED: MAGNESIUM HYDROXIDE SUSP 30 ML UDC PO PRN (12:28)
--- NOTE | 2022-05-08 12:42 | History & Physical Report ---
Date of Service May 08, 2022 Assessment & Plan (1) Interstitial lung disease: (2) Pneumonia: (3) Weakness: (4) Pulmonary hypertension: (5) Hypotension: (6) CHF (congestive heart failure): (7) Dermatomyositis: (8) History of seizures: (9) History of CVA (cerebrovascular accident): Plan 71 y/o presents with EMS with hypotension and persistent cough/congestion. Complex medical history including ILD, pHTN, Dermatomyositis, H/O seizures and CVA. Mg 1.5; replaced. Normotensive s/p 1 LNSB, CXR pleural effusions superimposed PNA vs aspiration pneumonitis, Chest CT negative for PE. See HPI for further details. ILD: PNA: Weakness: -Follows with Pulm in [place]; Dr. Portillo. -No Leukocytosis; WBC 9.77 -CXR pleural effusion with questionable superimposed pneumonia vs aspiration pneumonitis; CXR in AM -Chest CT: negative for PE. Mild bronchiectasis with stable peripheral interstitial thickening and bibasilar airspace opacities -1 dose IV Zosyn in ED; Started Ceftriaxone + Doxy -Blood cultures pending; adjust abx as necessary -Lactate 1.9 -Mg+ 11.5--> 1G; recheck in AM -Procalcitonin negative -Flutter Valve ordered QID -Mucinex ordered -Last PFT's 2016; FEV1 83 -Consult Pulmonary for evaluation of ILD and pleural effusions; audible crackles; suspect mix of ILD and possible CHF exacerbation -PT/OT orders placed; discussed possible placement with pt daughter who aggress with consideration Hypotension: -Hypotensive in ED s/p 1 L NSB with positive response; does not meet sepsis criteria. -No lower extremity swelling on exam -Hold Aldactone and Lasix for now; consider additional small IV bolus if additional hypotension Elevated Troponin: -in ED 397; no overt ischemia noted on EKG -Do not suspect ACS; will trend troponin x 1 Pulmonary HTN: CHF: -CXR pleural effusion with questionable superimposed pneumonia vs aspiration pneumonitis; CXR in AM -Takes Aldactone and Lasix; hold for now due to hypotension on arrival. -BNP pending -Repeat ECHO; Last ECHO 09/2021: EF 50-55%, Grade I Diastolic Dysfunction, Mild MR, Mild AR. -consider Cardiac consult if no improvement. Cards saw patient last admission Dermatomyositis: -Follows with Rheumatology; Dr. Moncada. Will reach out for recommendations -Prescribed CellCept; not compliant per pt and daughter -CK level 1800; was 700 in 02/16. -Recently completed Prednisone taper -Discussed with Dr. Moncada; recommended Methylprednisone 60 mg IV daily x3 days; then switch to Prednisone 20 mg PO daily until discharge; notify Rheumatology upon discharge and he will taper as necessary. -Dr. Hobson suggests reiterating importance of taking medications with compliance to avoid decline H/O seizures: -On Keppra; continue H/O CVA: -2020 without residual effects -On Dual antiplatelet therapy (ASA and Plavix) + statin; continue GERD: -Takes TUMS; was on Protonix but DC due to interfering with CellCept Disposition: PCP: Dr. Hatfield Code Status: Full Code VTE Prophylaxis: Elly I spent a total of 88 minutes coordinating, documenting, and providing care for this patient excluding time spent in the performance of separately billed services. All of the aforementioned completed while collaborating with the pita early attending physician, Dr. Ward, for a full treatment plan. Please see their addendum for further details. History of Present Illness Chief Complaint: SOB/weakness Primary Care Provider: Ryan Hatfield MD Ms. Chowdary is a 71-year-old female that presents to the [facility] today via EMS for increasing shortness of breath, weakness and persistent cough and congestion. In ED she was found to be hypotensive SBP 70's with response 115-120 (MAP 70) after 1 L NSB. Chest x-ray revealed pleural effusions with questionable superimposed pneumonia versus aspiration pneumonitis. Chest CT performed to rule out PE; negative. No leukocytosis WBC 9.77, no tachypnea, no tachycardia; does not appear to meet sepsis criteria at this time. Lactic acid 1.9, procalcitonin negative, mag 1.5; repleted with 1 g. Troponin noted to be 397 however do not suspect ACS rather ischemic demand related to her history of pulmonary hypertension. EKG did not reveal any overt ischemia. Reports her cough to be worsening over the past 3 or 4 days and is productive, white and thick. As noted patient has a complex medical history significant for pulmonary hypertension, CHF, dermatomyositis, ILD, Raynaud's disease, history of CVA, history of seizures, history of tobacco use, polyneuropathy. Suzy lives alone at home and has been noted to have progressive weakness over the past few months and does admit to missing IVIG treatment and did not undergo treatment in March; next IVIG scheduled for May 22. Patient most recent admission 10/14/2021 to 10/16/2021 for similar symptoms. Aft er that admission patient [facility]. Patient follows with Dr. Rodriguez. with pulmonary in [place] next rheumatology appointment scheduled 11/18. Next hematology oncology appointment scheduled for the end of the month 05/22. Follows with cardiology for CHF. Patient quit smoking 2016; prior to that smoked three-quarter pack per day x40 years. Patient denies alcohol use or recreational drug use. Currently patient denies fevers, headache, dizziness, abdominal pain, chest pain, palpitations, visual or auditory changes, recent falls or trauma. She reports normal bowel and bladder function patient reports that she is eating and drinking appropriately however has a hard time going from sitting to standing due to her weakness. She has reported that she is in the process of trying to get a lift chair to assist with this. She has a caregiver come into the home 3 times a week for 3 hours each day to assist with her ADLs including doing laundry and meals. Consult Pulmonary for evaluation of ILD and pleural effusions; audible crackles posterior RLL and LML. Her last documented PFTs were 2016 FEV1 83. PT/OT orders placed; discussed possible placement with pt daughter who aggress with consideration due to her noncompliance and continuation of her weakness. Patient does intermittently use a walker for ambulation. Patient will be admitted for further evaluation and management. Please see A/P for further details. Allergies Allergy/AdvReac Type Severity Reaction Status Date / Time No Known Allergies Allergy Verified 09/06/21 21:10 Home Medications Medication Instructions Recorded Confirmed Type doxepin 50 mg capsule 50 - 150 mg PO HS PRN Sleep 12/03/18 05/08/22 History gabapentin 100 mg capsule 100 mg PO TID 12/03/18 05/08/22 History mycophenolate mofetil 500 mg tablet 1,000 mg PO BID 12/03/18 05/08/22 History aspirin 81 mg tablet,delayed 81 mg PO QAM #90 tabs 08/30/20 05/08/22 Rx release atorvastatin 40 mg tablet 40 mg PO QAM #30 tabs 08/30/20 05/08/22 Rx clopidogrel 75 mg tablet (Plavix) 75 mg PO DAILY #30 tabs 08/30/20 05/08/22 Rx levetiracetam 500 mg tablet 500 mg PO BID #60 tabs 08/30/20 05/08/22 Rx (Keppra) furosemide 20 mg tablet (Lasix) 20 mg 3XWK 05/08/22 05/08/22 History potassium 20 mg chewable tablet 10 mg PO 3XWK 05/08/22 05/08/22 History spironolactone 25 mg tablet 25 mg PO DAILY 05/08/22 05/08/22 History (Aldactone) Past Med/Surg History Medical History Acute dyspnea Acute metabolic encephalopathy Acute respiratory failure with hypoxia Anemia Aspiration pneumonia DVT prophylaxis Elevated troponin History of CVA (cerebrovascular accident) History of seizures Pneumonia Pulmonary hypertension Shortness of breath UTI (urinary tract infection) Weakness Surgical History History of hysterectomy Social History Smoking Status: Former smoker Tobacco Type: Cigarettes Second Hand Exposure: No; Hx Alcohol Use: No Hx Substance Use: No Preferred Language: Icelandic Communication Ability: Effective Communication Ability Comment: currently having some aphasia Operating Room Tech Required: No Beliefs That Will Affect Care: None marital status: Single Current Living Situation: Alone Current Living Situation Comment: At home byself recently enrolled in home health Feels Safe at Home: Yes Safety Concerns: Feels Safe At This Time Assistive Devices: Denture - Upper, Denture - Lower and Walker Review of Systems Review of Systems: Neuro: (-) Falls, trauma, slurred speech HEENT: (-) TOMPKINS, dizziness, dysphagia, visual or auditory changes CV: (-) CP, palpitations, swelling Resp: (+) SOB, (+) cough GI: (-) appetite changes, N/V/D, bowel changes : (-) urinary changes Skin: (-) rashes Psych: (+) anxiety, depression Physical Exam Physical Exam: Neuro: AAOx4, PERRLA, no aphagia, memory changes, CNII-XII grossly intact HEENT: head normocephalic, moist mucus membranes CV: S1/S2, (-) M/G/R, (-) edema, cap refill < 3 seconds Resp: On room air. Posterior right middle and lower lobe crackles; left middle lobe crackles GI: Abdomen S/NT/ND, Ax4 bowel sounds, (-) CVA tenderness Musculoskeletal: 5/5 B/L UE strength, 5/5 B/L LE strength. No gait disturbance; uses walker Skin: (-) rashes , (-) erythema. Psych: euthymic mood Results & Data Results & Data ([facility]) Vital Signs (Past 12 Hours) Vital Signs Temp Pulse Pulse Resp BP BP Pulse Ox 05/08/22 11:05 92 H 20 93 05/08/22 11:04 36.8 C 90 20 113/58 L 95 05/08/22 09:51 05/08/22 09:39 90 05/08/22 09:31 05/08/22 09:31 36.8 C 92 H 18 77/51 L 97 O2 Del Method 05/08/22 11:05 Room Air 05/08/22 11:04 Room Air 05/08/22 09:51 Room Air 05/08/22 09:39 05/08/22 09:31 Room Air 05/08/22 09:31 Room Air Laboratory Results Short CBC 05/08/22 Range/Units 10:17 WBC 9.77 (4.8-10.8) K/ul Hgb 10.1 L (12.0-16.0) g/dl Hct 32.9 L (37.0-47.0) % Plt Count 226 (130-400) K/uL BMP 05/08/22 10:17 Sodium 134 L Potassium 3.7 Chloride 103 Carbon Dioxide 25 BUN 15 Creatinine 0.59 L Glucose 75 Calcium 7.2 L Cardiac Enzymes 05/08/22 Range/Units 10:17 Total Creatine Kinase 1879 H (26-192) U/L Liver Function 05/08/22 05/08/22 Range/Units 10:17 10:17 Total Bilirubin 0.6 (0.2-1.0) mg/dl Direct Bilirubin 0.1 0.2 (0-0.2) mg/dl AST 102 H (13-39) U/L ALT 69 H (7-52) U/L Alkaline Phosphatase 48 (34-104) U/L Albumin 2.3 L (3.4-5.0) gm/dl Diagnostic Findings Chest X-Ray 05/08/22 09:42 SINGLE VIEW CHEST CLINICAL HISTORY: Sepsis. FINDINGS: An AP, portable, upright chest radiograph is compared to study dated 10/16/2021 and correlated with chest CT dated 10/14/2021. The heart is enlarged noting atherosclerotic calcification of the thoracic aorta. There is prominence of the pulmonary vasculature. Emphysema and chronic interstitial thickening is similar to previous. There are small pleural effusions with dependent consolidation. No pneumothorax is seen. The skeletal structures are osteopenic. The bony thorax is grossly intact. Arthritic change is noted in the shoulders. Cholecystectomy clips are seen in the right upper quadrant. IMPRESSION: 1. Cardiomegaly and emphysema with prominence of the pulmonary vasculature. Correlate clinically for evidence of fluid overload/congestive change. 2. Small pleural effusions with dependent consolidation. This likely represents atelectasis. Correlate clinically for evidence of a superimposed pneumonia/aspiration pneumonitis. Radiographic follow-up to resolution is recommended. ACT 112: Negative or not required by law. Electronically signed by: Ziyad Estrella M.D. 05/08/2022 10:03 AM Chest CTA 05/08/22 11:17 CHEST CTA for PULMONARY ARTERIES CT DOSE: 380.89 mGycm HISTORY: Elevated troponin, hypotension, sob, r/o PE TECHNIQUE: Multiaxial CT images of the chest were performed following the intravenous administration of contrast to evaluate the pulmonary arteries. Maximal intensity projection images were also obtained. A dose lowering technique was utilized adhering to the principles of ALARA. COMPARISON STUDY: Chest CT 10/14/2021. FINDINGS: No evidence for an aortic dissection. The ascending thoracic aorta measures up to 3.7 cm in diameter, unchanged. The heart remains top normal in size. 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 This favors a right-sided subclavian steal syndrome. Nondiagnostic evaluation of the right lower lower lobe and lingular subsegmental pulmonary arteries due to the motion artifact. However, the remaining pulmonary arteries show no filling defects to suggest a pulmonary embolus. No acute fractures identified. No pneumothorax. The central airways are patent. Emphysema again noted. Chronic subpleural interstitial thickening remains unchanged. Mild bronchiectasis with bibasilar peripheral airspace opacities most pronounced within the base the righ t lower lobe also persists. This favors chronic interstitial lung disease/fibrotic change. A superimposed pneumonia would be difficult to exclude. No pleural or pericardial effusions. There are low lung volumes. Limited views of the upper abdomen demonstrate a normal liver, spleen, and adrenal glands. Normal esophagus. Stable mild mediastinal lymphadenopathy. No hilar lymphadenopathy. This may be chronic. IMPRESSION: 1. No evidence for a pulmonary embolus with limitations as described above. 2. Emphysema. 3. Mild bronchiectasis with stable peripheral interstitial thickening and bibasilar airspace opacities. This favors chronic interstitial lung disease/fibrotic change. A superimposed pneumonia would be difficult to exclude. 4. Stable mild mediastinal lymphadenopathy. ACT 112: Negative or not required by law. Electronically signed by: Joce Walsh M.D. 05/08/2022 12:24 PM Code Status & VTE Plan Code Status Full Code in the event of cardiac or respiratory arrest VTE Prophylaxis Plan VTE Prophylaxis will be ordered: Yes Supervising Physician Co-Signing Physician Notes Patient was seen and examined independently. Chart reviewed. Case discussed with LESLEY. Agree with assessment and plan as above. Reached out with Rheumatology Dr. Hobson that recommended ecommended Methylprednisone 60 mg IV daily x3 days; then switch to Prednisone 20 mg PO daily until discharge. Continue monitor closely. MD Ed (6) CHF (congestive heart failure) Heart failure chronicity: acute Heart failure type: unspecified Qualified Code(s): I50.9 - Heart failure, unspecified
[2022-05-08] MEDS: cefTRIAXone SODIUM 2,000 MG in DEXTROSE 5% 50 ML IV SCH (13:23)
[2022-05-08] MEDS ORDERED: DOXEPIN HCL 50 MG CAPSULE PO PRN (13:42)
[2022-05-08] MEDS: GABAPENTIN 100 MG CAP PO SCH ×2 (14:10→21:23)
[2022-05-08] MEDS: DOXYCYCLINE HYCLATE 100 MG in DEXTROSE 5% 100 ML IV SCH (14:11)
[2022-05-08 14:40] LABS: Appearance Urine Clear (Clear); Bacteria Urine Automated Negative (Negative); Bilirubin Urine Negative (Negative); Blood Urine Negative (Negative); Color Urine Yellow; Epithelial Cell Urine Auto >30 /lpf (0-5); Glucose Urine UA Negative (Negative); Ketones Urine Trace (Negative); Leukocyte Esterase Urine Trace (Negative); Nitrite Urine Negative (Negative); Protein Urine 1+ (Negative); RBC Urine Automated 0-4 /hpf (0-4); Specific Gravity Urine 1.028 (1.000-1.030); Urobilinogen Urine Negative (Negative); pH Urine 5.5 (4.5-7.5)
--- NOTE | 2022-05-08 16:05 | Pulmonary Consultation ---
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 RECOMMENDATIONS: 1. Interstitial Lung Disease - * Patient with CT findings consistent with interstitial changes which have been present dating back to at least 2018. In comparing patient CTA today versus most recent scan in September 2021 demonstrates no significant change or wors ening. * Patient is followed with [facility] pulmonology for her ILD and currently is being watched closely without any intervention at this time. * Previously was described as likely related to her underlying dermatomyositis diagnosis. Certainly this may be the case, however will defer to rheumatology input as the patient is clearly having worsening of her underlying disease process despite aggressive management with CellCept twice daily. * As patient is currently on significant management which would likely manage a number of underlying immunologically mediated disease processes, will narrow down order set to include an LDH, sputum culture and sensitivity, inflammatory markers including CRP and ESR, AFB sputum culture, and PJP sputum culture. * Agree with broad-spectrum antibiotic coverage including atypicals in the immunocompromise patient while we delineate possible sources of any infiltrative changes, specifically bacterial initially. * Patient will likely be more prone for aspiration given review of her CT findings and dilated esophagus. * Thankfully, patient is doing well from a pulmonary standpoint. She is saturating well on room air at this time. She is not dyspneic. Patient may experience some occasional difficulty with her breathing related to her overall muscle wasting, however her pulmonary status has seemed to remain preserved. * Would recommend outpatient PFT studies to be repeated. * Strongly recommend discussion of the patient with her garment looper for further guidance and possible addition of medications given her worsening underlying disease process with associated elevated CPK and generalized weakness/fatigue. 2. Dermatomyositis - * Again, would recommend reaching out to the patient's garment looper. 3. Pulmonary hypertension - * Per the patient's record. Will review updated echocardiogram for evaluation of RIGHT-sided heart pressures. * Would continue the patient's diuretic therapies currently. Thank you for allowing us to participate in the care of this patient. We will continue to follow along with this interesting patient Supervising Physician Co-Signing Physician Notes Patient seen and examined. EMR reviewed. Discussed with LESLEY. Agree with assessment plan as noted. Radiographically, the patient has evidence of significant interstitial lung disease but does not appear significantly progressed. The changes appear primarily fibrotic without significant groundglass. Will exclude infection with sputum analysis. Her symptoms appear to be more closely related to weakness and potentially progression of her myositis. Recommend consultation with rheumatology to determine the next step and immune suppression. Regarding interstitial lung disease for dermatomyositis/polymyositis or mixed connective tissue disease, if she has failed mycophenolate (typically doses are pushed to 2 to 3 g) could consider alternative agents including glucocorticoids, Rituxan, Tocilizumab etc. The patient is already receiving IVIG. Plex can be considered but is not offered at this institution and again with radiographic stability of her lung disease, would not recommend that for her lungs. She needs outpatient follow-up pulmonary function testing. There does not appear to be significant evidence of pleural effusion or based on her last echo any evidence of pulmonary hypertension. Will await follow-up echocardiogram. Feel free to contact us with questions or concerns. We will follow-up in a.m. History of Present Illness Reason for Consultation: "ILD/No recent PFT's/Pleural effusions" Requesting Physician: VIRY Ayala Attending Physician: Ji Ward MD History of Present Illness Patient is an unfortunate 71-year-old female with a significant past medical history of dermatomyositis, hypertension, interstitial lung disease, CVA, seizure, and rhabdomyolysis. The patient follows with Dr. Moncada outpatient rheumatology for her dermatomyositis. She previously was on prednisone and CellCept. Currently, she is maintained on 1000 mg of CellCept twice daily. She has not been on prednisone for an unknown amount of time. She initially reports that her weakness has not worsened, however she describes that she uses a chairlift and has in-home health care 3 times a week to help with activities of daily living. She reports that she can ambulate short distances before becoming significantly weak. She denies any significant shortness of breath. She has had a cough that is productive of whitish clear sputum. She reports that the cough has been new for the past week. Otherwise, she reports no shortness of breath, pleuritic pain, hemoptysis, or chest pain. Patient is uncertain of her last pulmonary function testing, however per records, it appears as though this was 2017. She does report that she follows with patient pulmonology for ILD, however currently there monitoring symptoms and this is the first she has had any change in her symptoms recently. Currently, the patient reports feeling well. She does feel as though she is weak. Otherwise, she denies any new complaints at this time. Patient does have an approximate 54-lpor-mrop history of smoking. She has not smoked since 2019. Allergies Allergy/AdvReac Type Severity Reaction Status Date / Time No Known Allergies Allergy Verified 09/06/21 21:10 Home Medications Medication Instructions Recorded Confirmed Type doxepin 50 mg capsule 50 - 150 mg PO HS PRN Sleep 12/03/18 05/08/22 History gabapentin 100 mg capsule 100 mg PO TID 12/03/18 05/08/22 History mycophenolate mofetil 500 mg tablet 1,000 mg PO BID 12/03/18 05/08/22 History aspirin 81 mg tablet,delayed 81 mg PO QAM #90 tabs 08/30/20 05/08/22 Rx release atorvastatin 40 mg tablet 40 mg PO QAM #30 tabs 08/30/20 05/08/22 Rx clopidogrel 75 mg tablet (Plavix) 75 mg PO DAILY #30 tabs 08/30/20 05/08/22 Rx levetiracetam 500 mg tablet 500 mg PO BID #60 tabs 08/30/20 05/08/22 Rx (Keppra) furosemide 20 mg tablet (Lasix) 20 mg 3XWK 05/08/22 05/08/22 History potassium 20 mg chewable tablet 10 mg PO 3XWK 05/08/22 05/08/22 History spironolactone 25 mg tablet 25 mg PO DAILY 05/08/22 05/08/22 History (Aldactone) Patient History Medical History (Updated 05/08/22 @ 14:30 by VIRY Mo) Acute dyspnea Acute metabolic encephalopathy Acute respiratory failure with hypoxia Anemia Aspiration pneumonia DVT prophylaxis Elevated troponin History of CVA (cerebrovascular accident) History of seizures Pneumonia Pulmonary hypertension Shortness of breath UTI (urinary tract infection) Weakness Surgical History History of hysterectomy Social History (Reviewed 05/08/22 @ 12:32 by MAKENNA Mo Smoking Status: Former smoker Tobacco Type: Cigarettes Second Hand Exposure: No; Hx Alcohol Use: No Hx Substance Use: No Preferred Language: Indonesian Communication Ability: Effective Academic Physician Required: No Beliefs That Will Affect Care: None marital status: Single Current Living Situation: Alone Current Living Situation Comment: At home byself recently enrolled in home health Feels Safe at Home: Yes Safety Concerns: Feels Safe At This Time Assistive Devices: Denture - Upper, Denture - Lower and Walker Review of Systems Review of Systems: A complete 10 point review of systems was reviewed with the patient with pertinent positives and negatives as per history of present illness. All else were negative. Physical Exam Physical Exam: VITAL SIGNS - Vital signs and nursing notes were reviewed. GENERAL - 71-year-old female appearing her stated age who is in no acute distress. Communicates well with provider and answers questions appropriately. SKIN - Telangiectasias of the face. EYES - PERRL with EOMI bilaterally. Sclera anicteric. NOSE - Midline and without cyanosis. MOUTH/OROPHARYNX - Without perioral cyanosis. Buccal mucosa pink and dry. Large telangiectasias under the tongue. NECK - Neck with FROM. Supple to palpation. LUNGS - Moderate rales appreciated in the LEFT side lung base and RIGHT middle/lower lobe distribution. CARDIAC - RRR with S1/S2. No murmur, rubs, or gallops appreciated. ABDOMEN - Abdominal contour scaphoid without pulsations or visible masses. BS normoactive all four quadrants. No tenderness to palpation. EXTREMITIES - No clubbing or peripheral cyanosis. No pretibial edema present. +3/5 radial and dorsalis pedis pulses palpated throughout. NEUROLOGIC - Cranial nerves II through XII grossly intact. Sensory intact to light touch throughout. PSYCH - A&Ox3 and cooperates fully with examiner. Pt is very pleasant and interacts well with examiner. Results & Data Results & Data ([facility]) Vital Signs (Past 12 Hours) Vital Signs Temp Pulse Pulse Resp BP BP Pulse Ox 05/08/22 15:41 83 20 90/62 L 05/08/22 14:10 81 20 100 05/08/22 14:05 91 H 16 05/08/22 13:50 78 23 95 05/08/22 13:40 80 25 H 97 05/08/22 13:30 80 27 H 97 05/08/22 13:30 110/59 L 05/08/22 13:20 84 32 H 05/08/22 13:10 84 18 97 05/08/22 13:01 120/52 L 05/08/22 13:01 84 15 100 05/08/22 13:00 83 20 98 05/08/22 12:55 84 17 99 05/08/22 12:55 108/51 L 05/08/22 12:50 83 22 97 05/08/22 12:40 87 26 H 95 05/08/22 12:30 83 24 05/08/22 12:30 114/57 L 05/08/22 12:20 85 24 97 05/08/22 12:11 89 28 H 99 05/08/22 12:08 85 9 L 95 05/08/22 11:30 90 26 H 95 05/08/22 11:30 109/60 05/08/22 11:20 92 H 26 H 94 05/08/22 11:10 90 27 H 93 05/08/22 11:00 90 29 H 94 05/08/22 11:00 113/58 L 05/08/22 10:54 91 H 26 H 95 05/08/22 13:45 81 05/08/22 11:05 92 H 20 93 05/08/22 11:04 36.8 C 90 20 113/58 L 95 05/08/22 09:51 05/08/22 09:39 90 05/08/22 09:31 05/08/22 09:31 36.8 C 92 H 18 77/51 L 97 O2 Del Method 05/08/22 15:41 05/08/22 14:10 05/08/22 14:05 05/08/22 13:50 05/08/22 13:40 05/08/22 13:30 05/08/22 13:30 05/08/22 13:20 05/08/22 13:10 05/08/22 13:01 05/08/22 13:01 05/08/22 13:00 05/08/22 12:55 05/08/22 12:55 05/08/22 12:50 05/08/22 12:40 05/08/22 12:30 05/08/22 12:30 05/08/22 12:20 05/08/22 12:11 05/08/22 12:08 05/08/22 11:30 05/08/22 11:30 05/08/22 11:20 05/08/22 11:10 05/08/22 11:00 05/08/22 11:00 05/08/22 10:54 05/08/22 13:45 05/08/22 11:05 Room Air 05/08/22 11:04 Room Air 05/08/22 09:51 Room Air 05/08/22 09:39 05/08/22 09:31 Room Air 05/08/22 09:31 Room Air PG Care Time/CCT Total # of Minutes Spent Total Time Spent with Patient: Total time spent is greater than 50% in coordination of care (as documented) at patient's floor/unit and/or counseling patient: Coding Level of Care Code 52230 INT INP/OBS CARE 375MIN Diagnoses Interstitial lung disease J84.9 Pulmonary hypertension I27.20 Dermatomyositis M33.90
[2022-05-08] MEDS: methylPREDNISolone 60 MG in SYRINGE 0 ML IV SCH (18:13)
[2022-05-08] MEDS: ENOXAPARIN INJ 40 MG/0.4 ML SYR SQ SCH (18:13)
[2022-05-08] MEDS: MYCOPHENOLATE MOFETIL 250 MG CAP PO SCH (21:23)
[2022-05-08] MEDS: guaiFENesin 600 MG TABCR PO SCH (21:23)
[2022-05-08] MEDS: levETIRAcetam 500 MG TAB PO SCH (21:24)
[2022-05-09] MEDS: DOXYCYCLINE HYCLATE 100 MG in DEXTROSE 5% 100 ML IV SCH ×2 (02:19→14:51)
--- NOTE | 2022-05-09 06:13 | Electrocardiogram Report ---
Test Reason : Blood Pressure : / mmHG Vent. Rate : 093 BPM Atrial Rate : 093 BPM P-R Int : 202 ms QRS Dur : 096 ms QT Int : 360 ms P-R-T Axes : 042 -46 050 degrees QTc Int : 447 ms Poor data quality, interpretation may be adversely affected Sinus rhythm Left axis deviation Moderate voltage criteria for LVH, may be normal variant Anterior infarct , age undetermined Abnormal ECG When compared with ECG of 20-OCT-2021 13:30, ST no longer depressed in Lateral leads T wave inversion no longer evident in Lateral leads Premature atrial complexes are no longer Present Confirmed by Lonnie Hare ([id number]) on 05/09/2022 6:12:19 AM Referred By: REFERRED SELF Confirmed By:Lonnie Hare
[2022-05-09 07:05] LABS: Albumin Globulin Ratio 0.9 (0.9-2); Albumin Level 2.6 gm/dl (3.4-5.0); BUN Creatinine Ratio 23.5 (10-20); Bilirubin,Total 0.3 mg/dl (0.2-1.0); Calcium 7.7 mg/dl (8.5-10.1); Creatinine Clr Calc Pharmacy 63.7 ml/min; Est GFR (African American) 102.7 ml/min; Est GFR (Non-African American) 88.6 ml/min; Globulin 2.8 gm/dl (2.5-4.0); Magnesium 2.3 mg/dl (1.7-2.4); Potassium 4.1 mmol/L (3.5-5.1); Total Protein 5.4 gm/dl (6.0-8.3)
[2022-05-09 07:15] LABS: INR 1.2 (0.9-1.1); Prothrombin Time 12.8 Seconds (9.0-12.0)
--- NOTE | 2022-05-09 08:16 | XRay Report ---
XR chest 1V portable CLINICAL HISTORY: post-operative coughing and wheezing TECHNIQUE: Single frontal radiograph of the chest was obtained. Comparison: Comparison is made to chest radiograph 05/09/2019 FINDINGS: No lines and tubes are seen. Calcified aortic knob is seen. Reticular interstitial opacities are seen . No evidence of pleural effusion or pneumothorax. IMPRESSION: Interstitial thickening without evidence of acute abnormality, in particular no radiographic evidence of pneumonia. ACT 112: Negative or not required by law. Electronically signed by: Xavier Tavares M.D. 05/09/2022 8:15 AM
--- NOTE | 2022-05-09 09:18 | Pulmonology Progress Note ---
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 RECOMMENDATIONS: 1. Interstitial Lung Disease - * Patient with CT findings consistent with interstitial changes which have been present dating back to at least 2018. In comparing patient CTA today versus most recent scan in September 2021 demonstrates no significant change or worsen ing. * Per primary service documentation, patient has reportedly not been compliant with her mycophenolate. * Her hub bander was engaged and he did recommend addition of steroids in the interim as well as making sure that she takes her mycophenolate. * Sputum cultures are pending. * CRP and LDH are elevated. Question if this could be related to her unmanaged dermatomyositis rather than other significant underlying infectious process. Regardless, would agree with completing course of antibiotics while cultures are pending. * Thankfully, patient is doing well from a pulmonary standpoint. She is saturating well on room air at this time. She is not dyspneic. Patient may experience some occasional difficulty with her breathing related to her overall muscle wasting, however her pulmonary status has seemed to remain preserved. * Would recommend outpatient PFT studies to be repeated. 2. Aspiration - * Patient witnessed to aspirate evening medications and breakfast this morning. * This is consistent with our prior concerns with CT imaging findings of dilated esophagus. * She will be made NPO. * Agree with NON DESTRUCTIVE TESTING TECHNICIAN evaluation. 2. Dermatomyositis - * As above. * Complete medications treatments as outlined by her primary hub bander. 3. Pulmonary hypertension - * Per the patient's record. Will review updated echocardiogram for evaluation of RIGHT-sided heart pressures. * Echo (05/09): EF 55-60%, Grade I diastolic dysfunction, RV is normal in size and function, right atrial size is normal. Tricuspid valve is normal. There is trace tricuspid regurgitation. No tricuspid stenosis. * Would continue the patient's diuretic therapies currently. Thank you for allowing us to participate in the care of this patient. We will continue to follow along with this interesting patient Admission and Anticipated Discharge Date Admission Date: May 08, 2022 Supervising Physician Co-Signing Physician Notes Patient seen and examined. EMR reviewed. The patient had an aspiration event earlier today and is now n.p.o. pending speech pathology evaluation. She reports that her breathing remains the same. She is coughing "slime" which appears to be copious and clear. She is not had any hemoptysis. She states she is able to walk for about 10 feet before becoming significantly fatigued and weak. She had her steroids increased at the direction of rheumatology. Echocardiogram showed concentric LVH with preserved ejection fraction grade 1 diastolic dysfunction. Right ventricle was normal. No evidence of significant pulmonary hypertension. Patient's interstitial lung disease clinically and radiographically appears stable. 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 Continue Rocephin and Doxy although antibiotics can be transitioned to oral at this point time when she is cleared by speech pathology. Do not think additional steroids are required for her lungs but will defer to rheumatology for treatment of her muscle inflammation. As noted previously, patient has several features which may be consistent with a mixed connective tissue disease including telangiectasia, Raynaud's phenomenon, and patulous esophagus. These appear to be consistent with a potential component of scleroderma, the treatment of which would primarily be mycophenolate. She will continue to follow with the outpatient [facility] pulmonary group with whom she is established. Subjective Patient was seen and evaluated at bedside this morning. She had some issues swallowing oral medications last night. Upon evaluation this morning, the patient had just aspirated her scrambled eggs. Oxygen saturation remained stable. She is coughing up clear, thick, oral secretions. She reports that this happens occasionally at home as well. Nursing staff had made the patient n.p.o. and requested order for NON DESTRUCTIVE TESTING TECHNICIAN evaluation. Review of Systems Review of Systems: A complete 6 point review of systems was reviewed with the patient with pertinent positives and negatives as per history of present illness. All else were negative. Physical Exam Physical Exam: VITAL SIGNS - Vital signs and nursing notes were reviewed. GENERAL - 71-year-old female appearing her stated age who is in no acute distress. Communicates well with provider and answers questions appropriately. LUNGS - Moderate rales appreciated in the LEFT side lung base and RIGHT middle/lower lobe distribution. CARDIAC - RRR with S1/S2. No murmur, rubs, or gallops appreciated. ABDOMEN - Abdominal contour scaphoid without pulsations or visible masses. BS normoactive all four quadrants. No tenderness to palpation. EXTREMITIES - No clubbing or peripheral cyanosis. No pretibial edema present. +3/5 radial and dorsalis pedis pulses palpated throughout. PSYCH - A&Ox3 and cooperates fully with examiner. Pt is very pleasant and interacts well with examiner. Results & Data Results & Data ([facility]) Vital Signs (Past 12 Hours) Vital Signs Temp Pulse Resp BP Pulse Ox O2 Del Method 05/09/22 07:00 109 H 18 127/74 97 Room Air 05/09/22 03:00 36.4 C L 72 18 123/74 97 Room Air 05/08/22 23:00 36.4 C L 70 16 120/67 97 Room Air PG Care Time/CCT Total # of Minutes Spent Total Time Spent with Patient: Total time spent is greater than 50% in coordination of care (as documented) at patient's floor/unit and/or counseling patient: Coding Level of Care Code 45706 SUB INP/OBS CARE 3/50MIN Diagnoses Interstitial lung disease J84.9 Pulmonary hypertension I27.20 Dermatomyositis M33.90
[2022-05-09] MEDS: guaiFENesin 600 MG TABCR PO SCH ×2 (10:17→20:43)
[2022-05-09] MEDS: GABAPENTIN 100 MG CAP PO SCH ×3 (10:17→20:43)
[2022-05-09] MEDS: levETIRAcetam 500 MG TAB PO SCH (10:17)
[2022-05-09] MEDS: ATORVASTATIN 40 MG TAB PO SCH (10:17)
[2022-05-09] MEDS: ASPIRIN 81 MG ECTAB PO SCH (10:17)
[2022-05-09] MEDS: CLOPIDOGREL BISULFATE 75 MG TAB PO SCH (10:17)
[2022-05-09] MEDS: MYCOPHENOLATE MOFETIL 250 MG CAP PO SCH ×2 (10:18→20:44)
[2022-05-09] MEDS: methylPREDNISolone 60 MG in SYRINGE 0 ML IV SCH (10:18)
[2022-05-09] MEDS: cefTRIAXone SODIUM 2,000 MG in DEXTROSE 5% 50 ML IV SCH (13:22)
--- NOTE | 2022-05-09 14:55 | Fluoroscopy Report ---
FL video swallow HISTORY: Pneumonia. r/o aspiration TECHNIQUE: Video fluoroscopic evaluation of swallowing was performed in the AP and lateral projection s by the speech pathology staff. The patient is fed nectar-thick and thin liquid barium, a barium coa brina wafer, and barium pudding. FLUOROSCOPY TIME: 3.1 minutes.. Ka, r: 17.4 mGy. COMPARISON STUDY: Video swallow 05/14/2015. FINDINGS: Overall poor pharyngeal constriction resulting in significant residue throughout the hypoph arynx and incomplete epiglottic deflection. This results in multiple episodes of aspiration with all of the barium consistencies. IMPRESSION: 1. Significant aspiration demonstrated during the examination 2. Please see the speech pathologist report for detailed findings and recommendations. ACT 112: Negative or not required by law. Electronically signed by: Joce Walsh M.D. 05/09/2022 2:53 PM
[2022-05-09] MEDS: ENOXAPARIN INJ 40 MG/0.4 ML SYR SQ SCH (17:33)
[2022-05-09] MEDS ORDERED: FAMOTIDINE 20 MG in SYRINGE 3 ML IV ONE (20:28)
--- NOTE | 2022-05-09 20:55 | Hospitalist Progress Note ---
Date of Service May 09, 2022 Assessment & Plan (1) Interstitial lung disease: (2) Pneumonia: (3) Weakness: (4) Pulmonary hypertension: (5) Hypotension: (6) CHF (congestive heart failure): (7) Dermatomyositis: (8) History of seizures: (9) History of CVA (cerebrovascular accident): Plan 71 y/o presents with EMS with hypotension and persistent cough/congestion. Complex medical history including ILD, pHTN, Dermatomyositis, H/O seizures and CVA. Mg 1.5; replaced. Normotensive s/p 1 LNSB, CXR pleural effusions superimposed PNA vs aspiration pneumonitis, Chest CT negative for PE. ILD: PNA: Weakness: Present on admission with worsening cough and weakness Reviewed today CXR imaging by me showed no evidence of pneumonia. Chest CT: negative for PE. Mild bronchiectasis with stable peripheral interstitial thickening and bibasilar airspace opacities Received IV Zosyn in the ER Currently on IV ceftriaxone and Doxy Blood culture no growth Sputum culture pending Pulmonary on board recommended to continue IV antibiotics for now then transition to oral when able to tolerate Dysphagia Mostly due to the disease progression (dermatomyositis) Video swallow showed poor pharyngeal constriction resulting in significant residue throughout the hypopharynx and incomplete epiglottic deflection. This results in multiple episodes of aspiration with all of the barium consistencies. Case discussed with speech that suggested to keep patient n.p.o. for now Spoke to Dr. Hobson about the video swallow finding As per rheumatology sometime dysphagia gets better with treatment for the dermatomyositis Discussed with daughter and patient about permissive aspiration, PEG tube, or short-term TPN if remain n.p.o. We will ask speech to evaluate patient again tomorrow then we will update daughter Continue aspiration precaution Hypotension: Possible related to hypovolemia due to poor oral intake in the setting of diuretic Continue to hold Lasix and Aldactone Received gentle IV fluid BP stable Chronic elevated Troponin: -in ED 397, then trending down to 322 no overt ischemia noted on EKG Denies any chest pain Echo showed no LV wall motion abnormality. Ejection fraction 55 to 60% Pulmonary HTN: CHF: -CTA chest showed no evidence of PE. Mild bronchiectasis with stable peripheral interstitial thickening and bibasilar airspace opacities. Echo showed ejection fraction 55 to 60% Monitor closely for volume overload while Aldactone and Lasix on all Plan to resume tomorrow if BP remains stable Transaminitis AST 92 and ALT 76 today Continue monitor liver enzyme Dermatomyositis: -Follows with Rheumatology; Dr. Moncada. Will reach out for recommendations -Prescribed CellCept; not compliant per pt and daughter -CK level 1800; was 700 in 02/16. -Recently completed Prednisone taper -Discussed with Dr. Moncada; recommended Methylprednisone 60 mg IV daily x3 days (day 2 today) then switch to Prednisone 20 mg PO daily until discharge; -Will need to notify Rheumatology upon discharge and he will taper as necessary. -Dr. Hobson suggests reiterating importance of taking medications with compliance to avoid decline -Patient said the reason she does not like to take the CellCept because she cannot tolerate the taste due to nausea and vomiting Weakness Due to dermatomyositis PT /OT on board recommend inpatient rehab But patient does not want to go to rehab Continue PT OT Fall precaution H/O seizures: -On Keppra; continue H/O CVA: -2020 without residual effects -On Dual antiplatelet therapy (ASA and Plavix) + statin; continue GERD: -Takes TUMS; was on Protonix but DC due to interfering with CellCept Disposition: PCP: Dr. Hatfield Code Status: Full Code VTE Prophylaxis: Lovenox I spent a total of 60 minutes coordinating, documenting, discussed with specialist, family and providing care for this patient excluding time spent in the performance of separately billed services. Admission and Anticipated Discharge Date Admission Date: May 08, 2022 Subjective Patient was seen and evaluated for follow-up Lying in bed with no acute distress. Patient said that she feels ok Nurse said pt was having difficulty to swallow her pills last night and this morning Pt said that she felt the pills stuck in her throat I had a lengthy discussion with her daughter over the phone today I updated her about her mother condition in details and answered all her questions I also discussed the case with rheumatology dr. Hobson and speech therapy about the video swallow Pt said that her biggest problem is getting up from the chair or sitting position She said once she gets up that she does not have any problem to ambulate She does not want to hear about inpatient rehab Denies any chest pain, palpitation, dizziness, and fever. Review of Systems Review of Systems: All systems reviewed & are unremarkable except as noted in Subjective Physical Exam Physical Exam: General- No acute distress Head- atraumatic Eyes- PERRL, EOMI, ENT- oropharynx clear Neck- supple, no JVD Lungs- +coarse BS Heart- regular rhythm; no murmur Abdomen- normal bowel sounds, soft, nontender Extremities- no calf tenderness Neuro- alert, oriented x 3; PERRL, EOMI; no facial palsy; no dysarthria Skin- warm & dry Results & Data Results & Data ([facility]) Vital Signs (Past 12 Hours) Vital Signs Temp Pulse Resp BP Pulse Ox O2 Del Method 05/09/22 19:47 36.2 C L 77 17 123/81 97 Room Air 05/09/22 15:49 36.6 C 69 18 127/69 98 Room Air 05/09/22 11:00 36.3 C L 80 16 126/77 96 Room Air (6) CHF (congestive heart failure) Heart failure chronicity: acute Heart failure type: unspecified Qualified Code(s): I50.9 - Heart failure, unspecified
[2022-05-09] MEDS: levETIRAcetam 500 MG in 0.9 % SODIUM CHLORIDE 100 ML IV SCH (21:33)
[2022-05-09] MEDS: DEXTROSE 5% 1,000 ML IV SCH (23:00)
[2022-05-10] MEDS: DOXYCYCLINE HYCLATE 100 MG in DEXTROSE 5% 100 ML IV SCH ×2 (02:13→13:19)
[2022-05-10 06:12] LABS: Hematocrit (blood only) 29.8 % (37.0-47.0); Hemoglobin 9.3 g/dl (12.0-16.0); Mean Corpuscular Hemoglobin 26.9 pg (25.0-34.0); Mean Corpuscular Hgb Conc 31.2 g/dL (32.0-36.0); Mean Corpuscular Volume 86.1 fL (80.0-100.0); Mean Platelet Volume 12.2 fL (9.4-12.4); Platelet Count 212 K/uL (130-400); RDW Coefficient of Variation 15.6 % (11.5-14.5); RDW Standard Deviation 48.7 fL (36.4-46.3); Red Blood Count 3.46 M/uL (4.20-5.40); White Blood Count 5.63 K/ul (4.8-10.8)
[2022-05-10 06:32] LABS: Albumin Level 2.6 gm/dl (3.4-5.0); BUN Creatinine Ratio 31.8 (10-20); Bilirubin,Total 0.3 mg/dl (0.2-1.0); Calcium 7.6 mg/dl (8.5-10.1); Creatinine Clr Calc Pharmacy 65.6 ml/min; Est GFR (African American) 103.7 ml/min; Est GFR (Non-African American) 89.5 ml/min; Globulin 2.5 gm/dl (2.5-4.0); Potassium 3.4 mmol/L (3.5-5.1); Total Protein 5.1 gm/dl (6.0-8.3)
[2022-05-10] MEDS: CLOPIDOGREL BISULFATE 75 MG TAB PO SCH (07:39)
[2022-05-10] MEDS: ASPIRIN 81 MG ECTAB PO SCH (07:39)
[2022-05-10] MEDS: ATORVASTATIN 40 MG TAB PO SCH (07:39)
[2022-05-10] MEDS: guaiFENesin 600 MG TABCR PO SCH ×2 (07:40→21:04)
[2022-05-10] MEDS: GABAPENTIN 100 MG CAP PO SCH ×3 (07:40→21:04)
[2022-05-10] MEDS: MYCOPHENOLATE MOFETIL 250 MG CAP PO SCH ×2 (07:40→21:04)
[2022-05-10] MEDS: levETIRAcetam 500 MG in 0.9 % SODIUM CHLORIDE 100 ML IV SCH ×2 (08:16→22:04)
[2022-05-10] MEDS: methylPREDNISolone 60 MG in SYRINGE 0 ML IV SCH (08:16)
[2022-05-10] MEDS: POTASSIUM CHLORIDE / WTR 10 MEQ/100 ML PLCT IV SCH ×2 (08:25→10:27)
--- NOTE | 2022-05-10 10:17 | Pulmonology Progress Note ---
Date of Service May 10, 2022 Assessment & Plan (1) Interstitial lung disease: (2) Pulmonary hypertension: (3) Dermatomyositis: Plan IMPRESSION: 71-year-old female with unfortunate past medical history of dermatomyositis currently maintained on CellCept twice daily dosing who presents with increasing weakness and a minimally productive cough question of worsening of the patient's baseline ILD. RECOMMENDATIONS: 1. Interstitial Lung Disease - * Patient with CT findings that are unchanged from prior. * She remains on steroids per Rheumatology recommendations. * Thankfully, patient is doing well from a pulmonary standpoint. She is saturating well on room air at this time. She is not dyspneic. Reports no cough today. * Would recommend outpatient PFT studies to be repeated. * She can continue to follow with her pulmonary providers with [facility]. 2. Aspiration - * FIELD CROP I FARMWORKER evaluation reviewed. * Unfortunately, patient appears to continue to aspirate on all PO intake. * Question if the patient's weight loss and "noncompliance" with medication is more related to her inability to swallow that it is true noncompliance of medical therapy. * This certainly will become an issue with ongoing patient nutrition needs as well as need for oral medication administration. * Would recommend engaging GI for evaluation of possible PEG tube placement if patient amendable. 2. Dermatomyositis - * Complete medications treatments as outlined by her primary fast food manager. 3. Pulmonary hypertension - * Per the patient's record. Will review updated echocardiogram for evaluation of RIGHT-sided heart pressures. * Echo (05/09): EF 55-60%, Grade I diastolic dysfunction, RV is normal in size and function, right atrial size is normal. Tricuspid valve is normal. There is trace tricuspid regurgitation. No tricuspid stenosis. * Would continue the patient's diuretic therapies currently. Thank you for allowing us to participate in the care of this patient. Please contact us with any further questions. Admission and Anticipated Discharge Date Admission Date: May 08, 2022 Supervising Physician Co-Signing Physician Notes Patient seen and examined. EMR reviewed. From a lung standpoint the patient feels like she is doing okay. She unfortunately failed her swallow evaluation and has evidence of recurrent aspiration. She has been made strict n.p.o. This is likely contributing to her structural lung disease. Her swallowing difficulties may have also impeded her ability to remain compliant with her immunosuppressive regimen. At this point time her lung disease appears fairly stable. Continue mycophenolate. She can continue to follow-up with her outpatient pulmonary providers with follow-up PFTs and imaging. She does not appear to be progressive from a lung standpoint but recurrent aspiration issues will likely result in decline in lung function over time. Per primary service as far as determining long-term feeding solutions. Currently on ceftriaxone and doxycycline. Okay to transition to oral if the patient is able to take oral agents. Would recommend completing 5 days of antimicrobial therapy then stopping Pulmonary will sign off at this point time. Feel free to contact us if we can be of additional assistance. Subjective Patient seen and evaluated at bedside. She reports having a great night sleep. She states that her cough is nearly completely resolved. Coincidentally, she has had nothing to eat for the last 24 hours or so. She reports that she has been ambulating minimal distance, but reports that she is significantly weak. She denies complaints of shortness of breath or hemoptysis Review of Systems Review of Systems: A complete 6 point review of systems was reviewed with the patient with pertinent positives and negatives as per history of present illness. All else were negative. Physical Exam Physical Exam: VITAL SIGNS - Vital signs and nursing notes were reviewed. GENERAL - 71-year-old female appearing her stated age who is in no acute distress. Communicates well with provider and answers questions appropriately. LUNGS - Moderate rales appreciated in the LEFT side lung base and RIGHT middle/lower lobe distribution. CARDIAC - RRR with S1/S2. No murmur, rubs, or gallops appreciated. ABDOMEN - Abdominal contour scaphoid without pulsations or visible masses. BS normoactive all four quadrants. No tenderness to palpation. PSYCH - A&Ox3 and cooperates fully with examiner. Pt is very pleasant and interacts well with examiner. Results & Data Results & Data ([facility]) Vital Signs (Past 12 Hours) Vital Signs Temp Pulse Pulse Resp BP Pulse Ox O2 Del Method 05/10/22 08:00 70 05/10/22 07:40 36.3 C L 68 18 96/59 L 96 Room Air 05/10/22 02:48 36.3 C L 77 18 124/64 99 Room Air 05/10/22 00:19 74 05/09/22 22:46 36.2 C L 72 18 121/68 96 Room Air PG Care Time/CCT Total # of Minutes Spent Total Time Spent with Patient: Total time spent is greater than 50% in coordination of care (as documented) at patient's floor/unit and/or counseling patient: Coding Level of Care Code 31189 SUB INP/OBS CARE MIN Diagnoses Interstitial lung disease J84.9 Pulmonary hypertension I27.20 Dermatomyositis M33.90
--- NOTE | 2022-05-10 11:49 | Hospitalist Progress Note ---
Date of Service May 10, 2022 Assessment & Plan (1) Interstitial lung disease: (2) Pneumonia: (3) Weakness: (4) Pulmonary hypertension: (5) Hypotension: (6) CHF (congestive heart failure): (7) Dermatomyositis: (8) History of seizures: (9) History of CVA (cerebrovascular accident): Plan 71 y/o presents with EMS with hypotension and persistent cough/congestion. Complex medical history including ILD, pHTN, Dermatomyositis, H/O seizures and CVA. Mg 1.5; replaced. Normotensive s/p 1 LNSB, CXR pleural effusions superimposed PNA vs aspiration pneumonitis, Chest CT negative for PE. ILD: PNA: Weakness: Present on admission with worsening cough and weakness Chest CT: negative for PE. Mild bronchiectasis with stable peripheral interstitial thickening and bibasilar airspace opacities Received IV Zosyn in the ER Currently on IV ceftriaxone and Doxy Blood culture no growth Sputum culture light normal oscar Pulmonary on board recommended to continue IV antibiotics for now then transition to oral when able to tolerate Dysphagia Dermatomyositis: Mostly due to the disease progression (dermatomyositis) Video swallow study on 05/09/22 showed poor pharyngeal constriction resulting in significant residue throughout the hypopharynx and incomplete epiglottic deflection. This results in multiple episodes of aspiration with all of the barium consistencies. Facialist Dr Shane Hobson has been following patient's case As per rheumatology sometime dysphagia gets better with treatment for the dermatomyositis Continue aspiration precaution Discussed with RESEARCH AND EVALUATION MANAGER today. Plan to repeat video swallow on 05/12/22 I will keep patient NPO for now and continue IVF I discussed with Dr Hobson. He stated patient had been poorly adherent with her Cellcept and has occasionally missed her IVIG infusion. Next infusion is within 2 weeks. He recommended to give patient IVIG now at 1g/kg daily for 2 consecutive days. I spoke with our Pharmacist Keerthi and discussed Dr Hobson's recs. Keerthi noted we have [facility] inpatient. Dr Hobson stated they usually have [facility] outpatient but he is ok with [facility]. Dr Hobson noted patient occasionally has nausea with infusion which is managed symptomatically. He stated patient has been on IVIG infusion for a long time. IVIG ordered Dr Hobson recommend continuing IV solumedrol for now and plan to transition to po prednisone 20mg daily once able Continue gentle IVF maintenance while NPO Patient counseled on need for med adherence Hypotension: Possible related to hypovolemia due to poor oral intake in the setting of diuret ic Continue to hold Lasix and Aldactone Received gentle IV fluid BP stable Chronic elevated Troponin: -in ED 397, then trending down to 322 no overt ischemia noted on EKG Denies any chest pain Echo showed no LV wall motion abnormality. Ejection fraction 55 to 60% Pulmonary HTN: CHF: -CTA chest showed no evidence of PE. Mild bronchiectasis with stable peripheral interstitial thickening and bibasilar airspace opacities. Echo showed ejection fraction 55 to 60% Monitor closely for volume overload while Aldactone and Lasix on hold Plan to resume tomorrow if BP remains stable Transaminitis AST 71 and ALT 66 today. Trending down Continue monitor liver enzyme Weakness Due to dermatomyositis PT /OT on board recommend inpatient rehab But patient does not want to go to rehab Continue PT OT Fall precaution H/O seizures: -On Keppra; continue H/O CVA: -2020 without residual effects -On Dual antiplatelet therapy (ASA and Plavix) + statin; continue once able to take po GERD: -Takes TUMS; was on Protonix but DC due to interfering with CellCept Disposition: PCP: Dr. aHtfield Code Status: Full Code VTE Prophylaxis: Lovenox I called daughter and updated her on findings today and plans I spent a total of 65 minutes coordinating, documenting, discussed with specialist, family and providing care for this patient excluding time spent in the performance of separately billed services. Admission and Anticipated Discharge Date Admission Date: May 08, 2022 Subjective Patient seen and examined Reports feeling better today. States she does not have difficulty swallowing her saliva like she had before coming Reports minimal cough today Denied any shortness of breath Denied any chest pain Denied nausea, vomiting, abd pain. Reported some loose stool earlier which she attributed to the barium for video study Physical Exam Constitutional: + well hydrated; no acute distress Eyes: PERRL, conjunctivae normal, anicteric sclerae ENMT: external ear and nose normal, oropharynx normal Respiratory: normal respiratory effort; no respiratory distress on room air. Basilar crackles Cardiovascular: Rate/Rhythm: regular rate and regular rhythm S1 S2 Gastrointestinal (Abdomen): normal bowel sounds, soft, nontender, no hepatosplenomegaly Musculoskeletal: No pedal edema Neurologic: PERRL, EOMI, accommodation nl, no face palsy, no dysarthria Psychiatric: A+Ox3, euthymic affect Results & Data Results & Data Vital Signs (Past 12 Hours) Vital Signs Temp Pulse Pulse Resp BP Pulse Ox O2 Del Method 05/10/22 11:24 36.4 C L 79 99 H 157/75 H Room Air 05/10/22 10:20 Room Air 05/10/22 08:00 70 05/10/22 07:40 36.3 C L 68 18 96/59 L 96 Room Air 05/10/22 02:48 36.3 C L 77 18 124/64 99 Room Air 05/10/22 00:19 74 Laboratory Results Abnormal lab results 05/10/22 05/10/22 Range/Units 05:48 05:48 RBC 3.46 L (4.20-5.40) M/uL Hgb 9.3 L (12.0-16.0) g/dl Hct 29.8 L (37.0-47.0) % MCHC 31.2 L (32.0-36.0) g/dL RDW Std Deviation 48.7 H (36.4-46.3) fL RDW Coeff of Myra 15.6 H (11.5-14.5) % Potassium 3.4 L (3.5-5.1) mmol/L BUN/Creatinine Ratio 31.8 H (10-20) Glucose 113 H (70-99(Fasting)) mg/dl Calcium 7.6 L (8.5-10.1) mg/dl AST 71 H (13-39) U/L ALT 66 H (7-52) U/L Total Protein 5.1 L (6.0-8.3) gm/dl Albumin 2.6 L (3.4-5.0) gm/dl (6) CHF (congestive heart failure) Heart failure chronicity: acute Heart failure type: unspecified Qualified Code(s): I50.9 - Heart failure, unspecified
[2022-05-10] MEDS: cefTRIAXone SODIUM 2,000 MG in DEXTROSE 5% 50 ML IV SCH (12:16)
[2022-05-10] MEDS ORDERED: IMMUNE GLOBULIN (HUMAN) SOLN IV SCH (14:45)
[2022-05-10] MEDS ORDERED: Octagam 10% IVIG 5 gram bottle IV SCH (15:30)
[2022-05-10] MEDS ORDERED: Octagam 10% IVIG 10 gram bottle IV SCH (16:30)
[2022-05-10] MEDS: ENOXAPARIN INJ 40 MG/0.4 ML SYR SQ SCH (17:46)
[2022-05-10] MEDS: Octagam 10% IVIG 20 gram bottle IV SCH ×2 (19:48→21:57)
[2022-05-10] MEDS: DEXTROSE 5% 1,000 ML IV SCH (23:34)
[2022-05-11] MEDS: DOXYCYCLINE HYCLATE 100 MG in DEXTROSE 5% 100 ML IV SCH ×2 (01:17→13:51)
[2022-05-11 06:47] LABS: Hemoglobin 10.9 g/dl (12.0-16.0); Mean Corpuscular Hemoglobin 26.6 pg (25.0-34.0); Mean Corpuscular Hgb Conc 31.1 g/dL (32.0-36.0); Mean Corpuscular Volume 85.4 fL (80.0-100.0); Mean Platelet Volume 10.9 fL (9.4-12.4); Platelet Count 288 K/uL (130-400); RDW Coefficient of Variation 15.7 % (11.5-14.5); RDW Standard Deviation 48.8 fL (36.4-46.3)
[2022-05-11 07:28] LABS: Albumin Globulin Ratio 0.7 (0.9-2); Albumin Level 2.6 gm/dl (3.4-5.0); BUN Creatinine Ratio 30.5 (10-20); Bilirubin,Total 0.4 mg/dl (0.2-1.0); Calcium 7.7 mg/dl (8.5-10.1); Creatinine Clr Calc Pharmacy 73.4 ml/min; Est GFR (African American) 107.6 ml/min; Est GFR (Non-African American) 92.9 ml/min; Globulin 3.7 gm/dl (2.5-4.0); Phosphorus 1.9 mg/dl (2.5-4.9); Potassium 3.5 mmol/L (3.5-5.1); Total Protein 6.3 gm/dl (6.0-8.3)
[2022-05-11] MEDS: levETIRAcetam 500 MG in 0.9 % SODIUM CHLORIDE 100 ML IV SCH ×2 (07:44→21:20)
[2022-05-11] MEDS: methylPREDNISolone 60 MG in SYRINGE 0 ML IV SCH (07:45)
[2022-05-11] MEDS: guaiFENesin 600 MG TABCR PO SCH ×2 (07:48→21:21)
[2022-05-11] MEDS: CLOPIDOGREL BISULFATE 75 MG TAB PO SCH (07:48)
[2022-05-11] MEDS: ASPIRIN 81 MG ECTAB PO SCH (07:48)
[2022-05-11] MEDS: GABAPENTIN 100 MG CAP PO SCH ×3 (07:48→21:21)
[2022-05-11] MEDS: ATORVASTATIN 40 MG TAB PO SCH (07:48)
[2022-05-11] MEDS: MYCOPHENOLATE MOFETIL 250 MG CAP PO SCH ×2 (07:49→21:21)
[2022-05-11] MEDS ORDERED: POTASSIUM PHOS 3 MMOL/1 ML INFUSION IV STA (08:29)
[2022-05-11] MEDS ORDERED: POTASSIUM PHOSPHATE 21 MMOL in SODIUM CHLORIDE 0.9% 500 ML IV ONE (08:45)
[2022-05-11] MEDS ORDERED: Octagam 10% IVIG 5 gram bottle IV SCH (13:00)
--- NOTE | 2022-05-11 13:17 | Hospitalist Progress Note ---
Date of Service May 11, 2022 Assessment & Plan (1) Interstitial lung disease: (2) Pneumonia: (3) Weakness: (4) Pulmonary hypertension: (5) Hypotension: (6) CHF (congestive heart failure): (7) Dermatomyositis: (8) History of seizures: (9) History of CVA (cerebrovascular accident): Plan 71 y/o presents with EMS with hypotension and persistent cough/congestion. Complex medical history including ILD, pHTN, Dermatomyositis, H/O seizures and CVA. Mg 1.5; replaced. Normotensive s/p 1 LNSB, CXR pleural effusions superimposed PNA vs aspiration pneumonitis, Chest CT negative for PE. ILD: Pneumonia: Weakness: Present on admission with worsening cough and weakness Chest CT: negative for PE. Mild bronchiectasis with stable peripheral interstitial thickening and bibasilar airspace opacities Received IV Zosyn in the ER Currently on IV ceftriaxone and Doxy Day 3 (to complete 5 days therapy) Blood culture no growth Sputum culture light normal oscar Pulmonary on board recommended to continue IV antibiotics for now then tra nsition to oral when able to tolerate Dysphagia Dermatomyositis: Mostly due to the disease progression (dermatomyositis) Video swallow study on 05/09/22 showed poor pharyngeal constriction resulting in significant residue throughout the hypopharynx and incomplete epiglottic deflection. This results in multiple episodes of aspiration with all of the barium consistencies. Hanging Flags Decorator Dr Shane Hobson has been following patient's case As per rheumatology sometime dysphagia gets better with treatment for the dermatomyositis Continue aspiration precautions Currently NPO On 05/10/22, I discussed with Dr Hobson. He stated patient had been poorly adherent with her Cellcept and has occasionally missed her IVIG infusion. Next infusion is within 2 weeks. He recommended to give patient IVIG now at 1g/kg daily for 2 consecutive days. Patient got first dose of IVIG yesterday Will get second dose today Dr Hobson recommend continuing IV solumedrol for now and plan to transition to po prednisone 20mg daily once able Continue gentle IVF maintenance while NPO Patient counseled on need for med adherence Discussed with VICE PRESIDENT SALES Video study was repeated today which still shows aspiration across consistencies I discussed with patient about need to consider other alternative to oral feeding. We discussed PEG tube feeding for now. She stated she will prefer oral feeding. We discussed the risks of aspiration/choking/pneumonia/respiratory failure and . She indicated understanding and stated she will prefer to eat by mouth Discussed with daughter and updated her. She hopes to talk to the patient again today Had another conversation with patient after daughter discussed with her She insists she wants po intake and does not want a PEG/feeding tube Pureed diet ordered. RN informed. Assistance with feeding. Replete hypophosphatemia Hypotension: Possible related to hypovolemia due to poor oral intake in the setting of diuretic Continue to hold Lasix and Aldactone Received gentle IV fluid BP currently elevated Chronic elevated Troponin: -in ED 397, then trending down to 322 no overt ischemia noted on EKG Denies any chest pain Echo showed no LV wall motion abnormality. Ejection fraction 55 to 60% Pulmonary HTN: CHF: -CTA chest showed no evidence of PE. Mild bronchiectasis with stable peripheral interstitial thickening and bibasilar airspace opacities. Echo showed ejection fraction 55 to 60% Monitor closely for volume overload while Aldactone and Lasix on hold Plan to resume tomorrow if BP remains stable Transaminitis AST 69 and ALT 66 today. Trended down Continue monitor liver enzyme Weakness Due to dermatomyositis PT /OT on board recommend inpatient rehab But patient does not want to go to rehab Continue PT OT Fall precaution H/O seizures: -On Keppra; continue H/O CVA: -2020 without residual effects -On Dual antiplatelet therapy (ASA and Plavix) + statin; continue once able to take po GERD: -Takes TUMS; was on Protonix but DC due to interfering with CellCept Disposition: PCP: Dr. Hatfield Code Status: Full Code VTE Prophylaxis: Lovenox I spent a total of 60 minutes coordinating, documenting, discussed with specialist, family and providing care for this patient excluding time spent in the performance of separately billed services. Admission and Anticipated Discharge Date Admission Date: May 08, 2022 Subjective Patient seen and examined Reports feeling better today. Denied any new complaints Denied cough, shortness of breath, chest pain Denied nausea, vomiting, abd pain. Denied fever, chills Physical Exam Constitutional: + well hydrated; no acute distress Eyes: PERRL, conjunctivae normal, anicteric sclerae ENMT: external ear and nose normal, oropharynx normal Respiratory: normal respiratory effort; no respiratory distress Basilar crackles On room air Cardiovascular: Rate/Rhythm: regular rate and regular rhythm S1 S2 Gastrointestinal (Abdomen): normal bowel sounds, soft, nontender, no hepatosplenomegaly Musculoskeletal: No pedal edema Neurologic: PERRL, EOMI, accommodation nl, no face palsy, no dysarthria Psychiatric: A+Ox3, euthymic affect Results & Data Results & Data Vital Signs (Past 12 Hours) Vital Signs Temp Pulse Pulse Resp BP Pulse Ox O2 Del Method 05/11/22 11:52 36.5 C 75 18 165/81 H 97 Room Air 05/11/22 09:00 71 05/11/22 09:00 Room Air 05/11/22 07:49 36.3 C L 81 18 169/83 H 91 Room Air 05/11/22 04:12 88 18 153/76 H 98 Room Air Laboratory Results Abnormal lab results 05/11/22 05/11/22 Range/Units 05:42 05:42 RBC 4.10 L (4.20-5.40) M/uL Hgb 10.9 L (12.0-16.0) g/dl Hct 35.0 L (37.0-47.0) % MCHC 31.1 L (32.0-36.0) g/dL RDW Std Deviation 48.8 H (36.4-46.3) fL RDW Coeff of Myra 15.7 H (11.5-14.5) % Creatinine 0.59 L (0.6-1.2) mg/dl BUN/Creatinine Ratio 30.5 H (10-20) Glucose 110 H (70-99(Fasting)) mg/dl Calcium 7.7 L (8.5-10.1) mg/dl Phosphorus 1.9 L (2.5-4.9) mg/dl AST 69 H (13-39) U/L ALT 68 H (7-52) U/L Albumin 2.6 L (3.4-5.0) gm/dl Albumin/Globulin Ratio 0.7 L (0.9-2) (6) CHF (congestive heart failure) Heart failure chronicity: acute Heart failure type: unspecified Qualified Code(s): I50.9 - Heart failure, unspecified
--- NOTE | 2022-05-11 13:27 | Fluoroscopy Report ---
FL video swallow CLINICAL HISTORY: 71 years-old Female with r/o aspiration. Acute dysphasia TECHNIQUE: Video fluoroscopic evaluation of swallowing was performed in the AP and lateral projection s by the speech pathology staff. The patient is fed thin liquid, mildly thick and pudding consistenci es. FLUOROSCOPY TIME: 3.2 minutes. 1075 images were submitted. 100.56 mGy. COMPARISON STUDY: None. FINDINGS: Aspiration with all consistencies. There is decreased epiglottic inversion with poor pharyn geal constriction. Vallecular retention noted throughout the study. IMPRESSION: 1. Multiple consistency aspiration redemonstrated. 2. Please see the speech pathologist report for detailed findings and recommendations. ACT 112: Negative or not required by law. Electronically signed by: Kenji Santiago M.D. 05/11/2022 1:26 PM
[2022-05-11] MEDS: cefTRIAXone SODIUM 2,000 MG in DEXTROSE 5% 50 ML IV SCH (13:51)
[2022-05-11] MEDS ORDERED: Octagam 10% IVIG 10 gram bottle IV SCH (14:00)
[2022-05-11] MEDS: Octagam 10% IVIG 20 gram bottle IV SCH ×2 (15:10→16:33)
[2022-05-11] MEDS: ENOXAPARIN INJ 40 MG/0.4 ML SYR SQ SCH (16:34)
[2022-05-12] MEDS: DOXYCYCLINE HYCLATE 100 MG in DEXTROSE 5% 100 ML IV SCH ×2 (02:03→13:37)
[2022-05-12 07:25] LABS: Hemoglobin 9.1 g/dl (12.0-16.0); Mean Corpuscular Hemoglobin 26.9 pg (25.0-34.0); Mean Corpuscular Hgb Conc 31.4 g/dL (32.0-36.0); Mean Corpuscular Volume 85.8 fL (80.0-100.0); Mean Platelet Volume 12.6 fL (9.4-12.4); Platelet Count 222 K/uL (130-400); Red Blood Count 3.38 M/uL (4.20-5.40); White Blood Count 6.23 K/ul (4.8-10.8)
[2022-05-12 07:44] LABS: Albumin Globulin Ratio 0.6 (0.9-2); Albumin Level 2.2 gm/dl (3.4-5.0); BUN Creatinine Ratio 28.1 (10-20); Bilirubin,Total 0.5 mg/dl (0.2-1.0); Calcium 7.4 mg/dl (8.5-10.1); Creatinine Clr Calc Pharmacy 67.7 ml/min; Est GFR (African American) 104.8 ml/min; Est GFR (Non-African American) 90.4 ml/min; Magnesium 1.8 mg/dl (1.7-2.4); Phosphorus 2.1 mg/dl (2.5-4.9); Potassium 3.7 mmol/L (3.5-5.1); Total Protein 6.2 gm/dl (6.0-8.3)
[2022-05-12] MEDS: levETIRAcetam 500 MG in 0.9 % SODIUM CHLORIDE 100 ML IV SCH ×2 (08:32→20:46)
[2022-05-12] MEDS: guaiFENesin 600 MG TABCR PO SCH ×2 (08:43→20:47)
[2022-05-12] MEDS: MYCOPHENOLATE MOFETIL 250 MG CAP PO SCH ×2 (08:43→20:47)
[2022-05-12] MEDS: GABAPENTIN 100 MG CAP PO SCH (08:43)
[2022-05-12] MEDS: ATORVASTATIN 40 MG TAB PO SCH (08:43)
[2022-05-12] MEDS: CLOPIDOGREL BISULFATE 75 MG TAB PO SCH (08:43)
[2022-05-12] MEDS: ASPIRIN 81 MG ECTAB PO SCH (08:43)
[2022-05-12] MEDS: cefTRIAXone SODIUM 2,000 MG in DEXTROSE 5% 50 ML IV SCH (12:49)
--- NOTE | 2022-05-12 13:19 | Hospitalist Progress Note ---
Date of Service May 12, 2022 Assessment & Plan (1) Interstitial lung disease: (2) Pneumonia: (3) Weakness: (4) Pulmonary hypertension: (5) Hypotension: (6) CHF (congestive heart failure): (7) Dermatomyositis: (8) History of seizures: (9) History of CVA (cerebrovascular accident): Plan 71 y/o presents with EMS with hypotension and persistent cough/congestion. Complex medical history including ILD, pHTN, Dermatomyositis, H/O seizures and CVA. Mg 1.5; replaced. Normotensive s/p 1 LNSB, CXR pleural effusions superimposed PNA vs aspiration pneumonitis, Chest CT negative for PE. ILD: Pneumonia: Weakness: Present on admission with worsening cough and weakness Chest CT: negative for PE. Mild bronchiectasis with stable peripheral interstitial thickening and bibasilar airspace opacities Received IV Zosyn in the ER Currently on IV ceftriaxone and Doxy Day 5 Blood culture no growth Sputum culture light normal oscar Pulmonary on board recommended to continue IV antibiotics for now then transition to oral when able to tolerate Dysphagia Dermatomyositis: Mostly due to the disease progression (dermatomyositis) Video swallow study on 05/09/22 showed poor pharyngeal constriction resulting in significant residue throughout the hypopharynx and incomplete epiglottic deflection. This results in multiple episodes of aspiration with all of the barium consistencies. Dock Clerk Dr Shane Hobson has been following patient's case As per rheumatology sometime dysphagia gets better with treatment for the dermatomyositis Continue aspiration precautions Currently NPO On 05/10/22, I discussed with Dr Hobson. He stated patient had been poorly adherent with her Cellcept and has occasionally missed her IVIG infusion. Next infusion is within 2 weeks. He recommended to give patient IVIG now at 1g/kg daily for 2 consecutive days. Got 2 doses of IVIG on 05/10/22 and 05/11/22 Dr Hobson recommend continuing IV solumedrol for now and plan to transition to po prednisone 20mg daily once able Video study was repeated 05/11/22 which still shows aspiration across consistencies On 05/11/22, I discussed with patient about need to consider other alternative to oral feeding. We discussed PEG tube feeding for now. She stated she will prefer oral feeding. We discussed the risks of aspiration/choking/pneumonia/respiratory failure and . She indicated understanding and stated she will prefer to eat by mouth She insists she wants po intake and does not want a PEG/feeding tube Currently on pureed feeding. Assist all feeding Replete hypophosphatemia Confusion overnight likely delirium Hold gabapentin for now in view of drowsiness Monitor. Redirect as needed Hypotension: Possible related to hypovolemia due to poor oral intake in the setting of diuretic Continue to hold Lasix and Aldactone Received gentle IV fluid BP currently elevated Chronic elevated Troponin: -in ED 397, then trending down to 322 no overt ischemia noted on EKG Denies any chest pain Echo showed no LV wall motion abnormality. Ejection fraction 55 to 60% Pulmonary HTN: CHF: -CTA chest showed no evidence of PE. Mild bronchiectasis with stable peripheral interstitial thickening and bibasilar airspace opacities. Echo showed ejection fraction 55 to 60% Monitor closely for volume overload while Aldactone and Lasix on hold Plan to resume tomorrow if BP remains stable Transaminitis AST 54 and ALT 55 today. Trended down Weakness Due to dermatomyositis PT /OT on board recommend inpatient rehab But patient does not want to go to rehab Continue PT OT Fall precaution H/O seizures: -On Keppra; continue H/O CVA: -2020 without residual effects -On Dual antiplatelet therapy (ASA and Plavix) + statin; continue once able to take po GERD: -Takes TUMS; was on Protonix but DC due to interfering with CellCept Disposition: PCP: Dr. Hatfield Code Status: Full Code VTE Prophylaxis: Lovenox Call to daughter to update her was unanswered I spent a total of 60 minutes coordinating, documenting, discussed with specialist, family and providing care for this patient excluding time spent in the performance of separately billed services. Admission and Anticipated Discharge Date Admission Date: May 08, 2022 Subjective Patient seen and examined RN reported patient was confused overnight During my evaluation today, patient was drowsy but arousable Oriented to person, place, month and year. Reports being tired today. Reports not feeling hungry today Denied cough, shortness of breath, chest pain. Though RN noted she coughed a little bit when she took a few bites of food but not significant Denied nausea, vomiting, abd pain. Denied fever, chills Physical Exam Constitutional: + well hydrated; no acute distress Eyes: PERRL, conjunctivae normal, anicteric sclerae ENMT: external ear and nose normal, oropharynx normal Respiratory: normal respiratory effort; no respiratory distress scattered crackles lung bases Cardiovascular: Rate/Rhythm: regular rate and regular rhythm S1 S2 Gastrointestinal (Abdomen): normal bowel sounds, soft, nontender, no hepatosplenomegaly Musculoskeletal: No pedal edema Neurologic: PERRL, EOMI, accommodation nl, no face palsy, no dysarthria Results & Data Results & Data Vital Signs (Past 12 Hours) Vital Signs Temp Pulse Resp BP Pulse Ox O2 Del Method 05/12/22 08:07 36.2 C L 77 14 163/77 H 99 Room Air Laboratory Results Abnormal lab results 05/12/22 05/12/22 Range/Units 06:20 06:20 RBC 3.38 L (4.20-5.40) M/uL Hgb 9.1 L (12.0-16.0) g/dl Hct 29.0 L (37.0-47.0) % MCHC 31.4 L (32.0-36.0) g/dL RDW Std Deviation 50.0 H (36.4-46.3) fL RDW Coeff of Myra 16.0 H (11.5-14.5) % MPV 12.6 H (9.4-12.4) fL Chloride 109 H (98-107) mmol/L BUN/Creatinine Ratio 28.1 H (10-20) Calcium 7.4 L (8.5-10.1) mg/dl Phosphorus 2.1 L (2.5-4.9) mg/dl AST 54 H (13-39) U/L ALT 55 H (7-52) U/L Albumin 2.2 L (3.4-5.0) gm/dl Albumin/Globulin Ratio 0.6 L (0.9-2) (6) CHF (congestive heart failure) Heart failure chronicity: acute Heart failure type: unspecified Qualified Code(s): I50.9 - Heart failure, unspecified
[2022-05-12] MEDS: ENOXAPARIN INJ 40 MG/0.4 ML SYR SQ SCH (15:54)
[2022-05-12] MEDS ORDERED: POTASSIUM PHOS 3 MMOL/1 ML INFUSION IV STA (16:34)
[2022-05-12] MEDS ORDERED: POTASSIUM PHOSPHATE 15 MMOL in SODIUM CHLORIDE 0.9% 250 ML IV ONE (17:15)
[2022-05-12] MEDS ORDERED: MYCOPHENOLATE SUSP 200 MG/1 ML PO SCH (21:00)
[2022-05-12] MEDS: MYCOPHENOLATE SUSP 200 MG/1 ML PO SCH (21:31)
[2022-05-12] MEDS: guaiFENesin SUGAR FREE 200 MG/10 ML UDC PO SCH (21:31)
[2022-05-12 22:52] LABS: iSTAT Allen Test Pass; iSTAT Art Bld Gas pCO2 Correct 36 mmHg (35-46); iSTAT Art Bld Gas pH Corrected 7.439 (7.35-7.45); iSTAT Arterial Blood Gas HCO3 25 meg/L (19-24); iSTAT Arterial Blood Gas pCO2 39 mmHg (35-46); iSTAT Arterial Blood Gas pH 7.41 (7.35-7.45); iSTAT Arterial Blood Gas pO2 149 mmHg (80-95); iSTAT Arterial Blood Gas pO2 C 137; iSTAT Carbon Dioxide 26 mmol/L (24-31); iSTAT Hematocrit 35 % (37-47); iSTAT Hemoglobin 11.9 g/dl (12.0-16.0); iSTAT Potassium 3.7 mmol/L (3.3-5.0); iSTAT Site L Brachial; iSTAT Sodium 141 mmol/L (135-144)
[2022-05-12 23:53] LABS: Albumin Globulin Ratio 0.5 (0.9-2); Albumin Level 2.3 gm/dl (3.4-5.0); Bilirubin,Total 0.7 mg/dl (0.2-1.0); Calcium 7.8 mg/dl (8.5-10.1); Creatinine Clr Calc Pharmacy 62.8 ml/min; Est GFR (African American) 102.2 ml/min; Est GFR (Non-African American) 88.2 ml/min; Globulin 4.3 gm/dl (2.5-4.0); Potassium 4.2 mmol/L (3.5-5.1); Total Protein 6.6 gm/dl (6.0-8.3)
[2022-05-13 00:02] LABS: Troponin I High Sensitivity 346.1 pg/ml (0-14)
[2022-05-13 01:28] LABS: Hematocrit (blood only) 34.4 % (37.0-47.0); Hemoglobin 10.7 g/dl (12.0-16.0); Immature Granulocytes # (auto) 0.07 K/uL (0.01-0.20); Immature Granulocytes % (auto) 1.1 %; Lymphocytes # (auto) 0.54 K/uL (1.2-3.4); Lymphocytes % (auto) 8.3 %; Mean Corpuscular Hemoglobin 26.8 pg (25.0-34.0); Mean Corpuscular Hgb Conc 31.1 g/dL (32.0-36.0); Mean Corpuscular Volume 86.2 fL (80.0-100.0); Mean Platelet Volume 11.1 fL (9.4-12.4); Monocytes # (auto) 0.64 K/uL (0.11-0.59); Monocytes % (auto) 9.8 %; Neutrophils # (auto) 5.29 K/uL (1.40-6.50); Neutrophils % (auto) 80.8 %; Platelet Count 154 K/uL (130-400); RDW Coefficient of Variation 16.4 % (11.5-14.5); RDW Standard Deviation 51.5 fL (36.4-46.3); Red Blood Count 3.99 M/uL (4.20-5.40); White Blood Count 6.54 K/ul (4.8-10.8)
--- NOTE | 2022-05-13 01:33 | CT Scan Report ---
Exam(s): CT HEAD Without Contrast EXAM: CT Head Without Intravenous Contrast CLINICAL HISTORY: Reason for exam: AMS. TECHNIQUE: Axial computed tomography images of the head/brain without intravenous contrast. CTDI is 36.61 mGy and DLP is 691.05 mGy-cm. Automated exposure control was utilized for the study. A dose lowering technique was utilized adhering to the principles of ALARA. COMPARISON: 09/06/21 FINDINGS: Brain: Old right frontal and parietal infarcts. Areas of decreased attenuation in the deep cerebral white matter are consistent with small vessel ischemic/degenerative changes. The cerebral and cerebellar sulci are prominent consistent with brain atrophy. Dystrophic calcification in the left parietal lobe is stable. No hemorrhage. Ventricles: Unremarkable. No ventriculomegaly. Bones/joints: Unremarkable. No acute fracture. Soft tissues: Unremarkable. Vasculature: Atherosclerotic disease. Sinuses: Unremarkable as visualized. No acute sinusitis. Mastoid air cells: Unremarkable as visualized. No mastoid effusion. IMPRESSION: 1. Small vessel ischemic/degenerative changes. 2. Cerebral and cerebellar atrophy. Electronically signed by: Nirmal Polk MD 05/13/22 01:32 AM
[2022-05-13] MEDS: DOXYCYCLINE HYCLATE 100 MG in DEXTROSE 5% 100 ML IV SCH (03:43)
--- NOTE | 2022-05-13 07:04 | Communication Note ---
Date of Service: May 13, 2022 Last night intialy code blue was called and then later changed to code purple as patient seemed not to breathe and oxygen sats were in 70's. Some bd side suction done.With oxy mask sats improved and patient was alert and oriented and was talking ok. Seems patient vomited prior to the event. Abg was ok. ct head ok. labs ok. cxr not much change. Possible aspiration. Made npo except meds for now and transferred to tele for close monitoring. Notified daughter. Will let am team know. Thanks
[2022-05-13 07:27] LABS: Hematocrit (blood only) 33.6 % (37.0-47.0); Hemoglobin 10.7 g/dl (12.0-16.0); Mean Corpuscular Hemoglobin 26.8 pg (25.0-34.0); Mean Corpuscular Hgb Conc 31.8 g/dL (32.0-36.0); Mean Corpuscular Volume 84.2 fL (80.0-100.0); Mean Platelet Volume 11.4 fL (9.4-12.4); Nucleated RBC # (auto) 0.02 K/uL (0-0.12); Nucleated RBC % (auto) 0.3 %; Platelet Count 203 K/uL (130-400); RDW Coefficient of Variation 16.3 % (11.5-14.5); RDW Standard Deviation 49.9 fL (36.4-46.3); Red Blood Count 3.99 M/uL (4.20-5.40); White Blood Count 7.69 K/ul (4.8-10.8)
--- NOTE | 2022-05-13 07:41 | Electrocardiogram Report ---
Test Reason : Blood Pressure : / mmHG Vent. Rate : 088 BPM Atrial Rate : 088 BPM P-R Int : 172 ms QRS Dur : 098 ms QT Int : 378 ms P-R-T Axes : 041 -48 041 degrees QTc Int : 457 ms Normal sinus rhythm Left axis deviation Moderate voltage criteria for LVH, may be normal variant Anterior infarct (cited on or before 08-MAY-2022) Abnormal ECG When compared with ECG of 08-MAY-2022 09:29, No significant change was found Confirmed by Avery Humphrey ([id number]) on 05/13/2022 7:41:14 AM Referred By: REFERRED SELF Confirmed By:Torres Humphrey
[2022-05-13 07:47] LABS: BUN Creatinine Ratio 34.9 (10-20); Calcium 7.5 mg/dl (8.5-10.1); Creatinine Clr Calc Pharmacy 68.7 ml/min; Est GFR (African American) 105.3 ml/min; Est GFR (Non-African American) 90.9 ml/min; Magnesium 1.7 mg/dl (1.7-2.4); Phosphorus 2.7 mg/dl (2.5-4.9); Potassium 3.5 mmol/L (3.5-5.1)
--- NOTE | 2022-05-13 08:12 | XRay Report ---
XR chest 1V portable CLINICAL HISTORY: hypoxia COMPARISON STUDY: Chest CT May 08, 2022. Chest radiograph May 09, 2022. FINDINGS: Incidental note is made of contrast within portions of the colon from recent modified bariu m swallow. Lung volumes are diminished. Interstitial thickening is unchanged. This is likely chronic. No superimposed consolidation is noted. IMPRESSION: No acute cardiopulmonary findings. Chronic interstitial lung disease. No superimposed co nsolidation. ACT 112: Negative or not required by law. Electronically signed by: Nadir Fleming M.D. 05/13/2022 8:11 AM
[2022-05-13] MEDS: ATORVASTATIN 40 MG TAB PO SCH (08:49)
[2022-05-13] MEDS: CLOPIDOGREL BISULFATE 75 MG TAB PO SCH (08:49)
[2022-05-13] MEDS: guaiFENesin SUGAR FREE 200 MG/10 ML UDC PO SCH (08:49)
[2022-05-13] MEDS: MYCOPHENOLATE SUSP 200 MG/1 ML PO SCH (08:49)
[2022-05-13] MEDS: levETIRAcetam 500 MG in 0.9 % SODIUM CHLORIDE 100 ML IV SCH ×2 (08:49→21:00)
[2022-05-13] MEDS: ASPIRIN 81 MG ECTAB PO SCH (08:49)
[2022-05-13] MEDS ORDERED: TPN/PPN CONSULT PHARMACY STA (12:11)
--- NOTE | 2022-05-13 12:13 | Hospitalist Progress Note ---
Date of Service May 13, 2022 Assessment & Plan (1) Interstitial lung disease: (2) Pneumonia: (3) Weakness: (4) Pulmonary hypertension: (5) Hypotension: (6) CHF (congestive heart failure): (7) Dermatomyositis: (8) History of seizures: (9) History of CVA (cerebrovascular accident): Plan 71 y/o presents with EMS with hypotension and persistent cough/congestion. Complex medical history including ILD, pHTN, Dermatomyositis, H/O seizures and CVA. Mg 1.5; replaced. Normotensive s/p 1 LNSB, CXR pleural effusions superimposed PNA vs aspiration pneumonitis, Chest CT negative for PE. ILD: Pneumonia: Weakness: Present on admission with worsening cough and weakness Chest CT: negative for PE. Mild bronchiectasis with stable peripheral interstitial thickening and bibasilar airspace opacities Received IV Zosyn in the ER Completed IV ceftriaxone and Doxy Blood culture no growth Sputum culture light normal oscar Dysphagia Dermatomyositis: Mostly due to the disease progression (dermatomyositis) Video swallow study on 05/09/22 showed poor pharyngeal constriction resulting in significant residue throughout the hypopharynx and incomplete epiglottic deflection. This results in multiple episodes of aspiration with all of the barium consistencies. [facility] Test Dr Shane Hobson has been following patient's case As per rheumatology sometime dysphagia gets better with treatment for the dermatomyositis Continue aspiration precautions Currently NPO On 05/10/22, I discussed with Dr Hobson. He stated patient had been poorly adherent with her Cellcept and has occasionally missed her IVIG infusion. Next infusion is within 2 weeks. He recommended to give patient IVIG now at 1g/kg daily for 2 consecutive days. Got 2 doses of IVIG on 05/10/22 and 05/11/22 Dr Hobson recommend continuing IV solumedrol for now and plan to transition to po prednisone 20mg daily once able Video study was repeated 05/11/22 which still shows aspiration across consistencies On 05/11/22, I discussed with patient about need to consider other alternative to oral feeding. We discussed PEG tube feeding for now. She stated she will prefer oral feeding. We discussed the risks of aspiration/choking/pneumonia/respiratory failure and . She indicated understanding and stated she will prefer to eat by mouth At the time she insisted she wanted po intake and did not want a PEG/feeding tube Was started on pureed diet with assistance. Aspirated last night during which she was briefly hypoxic. Currently on room air. CXR reviewed. Patient asking about alternate feeding today. She stated she will like to get a PEG tube I also explained that PEG will not stop aspiration but will help with feeding. She understands that and will like to get a PEG She does not want NGT GI consult Discussed with pharm. Will start PPN for now temporarily until GI places a PEG Monitor electrolyte and replete Hypotension: Possible related to hypovolemia due to poor oral intake in the setting of diuretic Continue to hold Lasix and Aldactone Received gentle IV fluid BP currently normal to mildly elevated Chronic elevated Troponin: -in ED 397, then trending down to 322 no overt ischemia noted on EKG Denies any chest pain Echo showed no LV wall motion abnormality. Ejection fraction 55 to 60% Pulmonary HTN: CHF: -CTA chest showed no evidence of PE. Mild bronchiectasis with stable peripheral interstitial thickening and bibasilar airspace opacities. Echo showed ejection fraction 55 to 60% Monitor closely for volume overload while Aldactone and Lasix on hold Plan to resume tomorrow if BP remains stable Transaminitis Trended down Weakness Due to dermatomyositis PT /OT on board recommend inpatient rehab But patient does not want to go to rehab. She prefer Home with services Continue PT OT Fall precaution H/O seizures: -On Keppra; continue H/O CVA: -2020 without residual effects -On Dual antiplatelet therapy (ASA and Plavix) + statin; Not getting since she is NPO GERD: -Takes TUMS; was on Protonix but DC due to interfering with CellCept Disposition: PCP: Dr. Hatfield Code Status: Full Code VTE Prophylaxis: Lovenox I spent a total of 60 minutes coordinating, documenting, discussed with specialist, family and providing care for this patient excluding time spent in the performance of separately billed services. Admission and Anticipated Discharge Date Admission Date: May 08, 2022 Subjective Patient seen and examined Patient had an aspiration episode overnight and was transferred back to [facility]. Currently alert and oriented to person, place, month and year. Reports cough today. Denied shortness of breath, chest pain. Denied nausea, vomiting, abd pain. Had one loose stool earlier. No melena/hematochezia Denied fever, chills Denied dysuria, freq, urgency Physical Exam Constitutional: + well hydrated; no acute distress Eyes: PERRL, conjunctivae normal, anicteric sclerae ENMT: external ear and nose normal, oropharynx normal Respiratory: normal respiratory effort; no respiratory distress Scattered crackles Cardiovascular: Rate/Rhythm: regular rhythm and + tachycardic S1 S2 Gastrointestinal (Abdomen): normal bowel sounds, soft, nontender, no hepatosplenomegaly Musculoskeletal: No pedal edema Neurologic: PERRL, EOMI, accommodation nl, no face palsy, no dysarthria Psychiatric: A+Ox3, euthymic affect Results & Data Results & Data Vital Signs (Past 12 Hours) Vital Signs Temp Pulse Resp BP Pulse Ox O2 Del Method 05/13/22 11:52 36.5 C 103 H 18 149/69 H 96 Room Air 05/13/22 06:51 36.5 C 87 18 159/75 H 97 Room Air 05/13/22 04:10 36.5 C 86 18 108/76 97 Room Air Laboratory Results Abnormal lab results 05/12/22 05/12/22 05/13/22 Range/Units 22:37 23:12 00:56 RBC 3.99 L (4.20-5.40) M/uL Hgb 10.7 L (12.0-16.0) g/dl POC Hgb 11.9 L (12.0-16.0) g/dl Hct 34.4 L (37.0-47.0) % POC Hct 35 L (37-47) % MCHC 31.1 L (32.0-36.0) g/dL RDW Std Deviation 51.5 H (36.4-46.3) fL RDW Coeff of Myra 16.4 H (11.5-14.5) % Lymph # (Auto) 0.54 L (1.2-3.4) K/uL Motley # (Auto) 0.64 H (0.11-0.59) K/uL POC pO2 149 H (80-95) mmHg POC HCO3 25 H (19-24) oswald/L POC ABG O2 Sat 99.0 H (90-95) % Chloride 110 H (98-107) mmol/L BUN/Creatinine Ratio 29.0 H (10-20) Calcium 7.8 L (8.5-10.1) mg/dl AST 73 H (13-39) U/L ALT 58 H (7-52) U/L Troponin I High Sens 346.1 H* (0-14) pg/ml Albumin 2.3 L (3.4-5.0) gm/dl Globulin 4.3 H (2.5-4.0) gm/dl Albumin/Globulin Ratio 0.5 L (0.9-2) 05/13/22 05/13/22 Range/Units 06:31 06:31 RBC 3.99 L (4.20-5.40) M/uL Hgb 10.7 L (12.0-16.0) g/dl POC Hgb (12.0-16.0) g/dl Hct 33.6 L (37.0-47.0) % POC Hct (37-47) % MCHC 31.8 L (32.0-36.0) g/dL RDW Std Deviation 49.9 H (36.4-46.3) fL RDW Coeff of Myra 16.3 H (11.5-14.5) % Lymph # (Auto) (1.2-3.4) K/uL Motley # (Auto) (0.11-0.59) K/uL POC pO2 (80-95) mmHg POC HCO3 (19-24) oswald/L POC ABG O2 Sat (90-95) % Chloride 110 H (98-107) mmol/L BUN/Creatinine Ratio 34.9 H (10-20) Calcium 7.5 L (8.5-10.1) mg/dl AST (13-39) U/L ALT (7-52) U/L Troponin I High Sens (0-14) pg/ml Albumin (3.4-5.0) gm/dl Globulin (2.5-4.0) gm/dl Albumin/Globulin Ratio (0.9-2) (6) CHF (congestive heart failure) Heart failure chronicity: acute Heart failure type: unspecified Qualified Code(s): I50.9 - Heart failure, unspecified
[2022-05-13] MEDS ORDERED: TPN/PPN CONSULT PHARMACY PRN (12:34)
--- NOTE | 2022-05-13 15:10 | Gastrointestinal Consultation ---
Date of Consultation May 13, 2022 Assessment & Plan (1) Dysphagia: Plan severe oropharyngeal dysphagia from her dermatomyositis recs: hold plavix for at least 5 days prior to PEG tube placement she has seen [facility] in the past, will defer to them as to timing of PEG tube placement, could consider end of the week 05/19 or 05/18 if plavix is held starting tomorrow Thank you for allowing me to participate in the care of this patient. History of Present Illness Attending Physician: Debora Gil MD History of Present Illness 71 y/o female with dermatomyositis and severe dysphagia with video swallow showing aspiration. GI consulted for PEG tube. She is on asa 81 mg and plavix daily, last plavix dose was this morning. She is agreeable to a PEG tube placement and would like it done. CBC and CMP reviewed. Allergies Allergy/AdvReac Type Severity Reaction Status Date / Time No Known Allergies Allergy Verified 09/06/21 21:10 Home Medications Medication Instructions Recorded Confirmed Type doxepin 50 mg capsule 50 - 150 mg PO HS PRN Sleep 12/03/18 05/08/22 History gabapentin 100 mg capsule 100 mg PO TID 12/03/18 05/08/22 History mycophenolate mofetil 500 mg tablet 1,000 mg PO BID 12/03/18 05/08/22 History aspirin 81 mg tablet,delayed 81 mg PO QAM #90 tabs 08/30/20 05/08/22 Rx release atorvastatin 40 mg tablet 40 mg PO QAM #30 tabs 08/30/20 05/08/22 Rx clopidogrel 75 mg tablet (Plavix) 75 mg PO DAILY #30 tabs 08/30/20 05/08/22 Rx levetiracetam 500 mg tablet 500 mg PO BID #60 tabs 08/30/20 05/08/22 Rx (Keppra) furosemide 20 mg tablet (Lasix) 20 mg 3XWK 05/08/22 05/08/22 History potassium 20 mg chewable tablet 10 mg PO 3XWK 05/08/22 05/08/22 History spironolactone 25 mg tablet 25 mg PO DAILY 05/08/22 05/08/22 History (Aldactone) Patient History Medical History Acute dyspnea Acute metabolic encephalopathy Acute respiratory failure with hypoxia Anemia Aspiration pneumonia DVT prophylaxis Elevated troponin History of CVA (cerebrovascular accident) History of seizures Pneumonia Pulmonary hypertension Shortness of breath UTI (urinary tract infection) Weakness Surgical History History of hysterectomy Social History Smoking Status: Former smoker Tobacco Type: Cigarettes Second Hand Exposure: No; Hx Alcohol Use: No Hx Substance Use: No Preferred Language: [place] Communication Ability: Effective Statistical Reporting Analyst Required: No Beliefs That Will Affect Care: None marital status: Single Current Living Situation: Alone Current Living Situation Comment: At home byself recently enrolled in home health Feels Safe at Home: Yes Safety Concerns: Feels Safe At This Time Assistive Devices: Denture - Upper, Denture - Lower and Walker Review of Systems Constitutional: no fever, no chills and no weight loss Eyes: as per Subjective / HPI Ear, Nose, Mouth, Throat: as per Subjective / HPI Respiratory: no dyspnea and no dyspnea on exertion Cardiovascular: no chest pain and no palpitations Gastrointestinal: as per Subjective / HPI Musculoskeletal: no joint pain and no swelling Integumentary: no rash and no lesions Neurologic: no numbness and no paresthesia Psychiatric: no depression and no anxiety Endocrine: no fatigue Hematologic / Lymphatic: no easy bleeding and no easy bruising Physical Exam Constitutional: WD/WN, vitals as above Eyes: EOM intact bilaterally Neck: normal visual inspection Respiratory: normal respiratory effort, lungs clear to auscultation Cardiovascular: RRR, no murmur, no edema Gastrointestinal (Abdomen): Inspection/Auscultation: abdomen normal to inspection; abdomen not distended Percussion/Palpation: abdomen soft; abdomen nontender and no hepatosplenomegaly Musculoskeletal: Extremities: no cyanosis Gait: normal gait Skin: no rashes, warm and dry Neurologic: moves all extremities Psychiatric: A+Ox3, euthymic affect Results & Data Vital Signs (Past 12 Hours) Vital Signs Temp Pulse Resp BP Pulse Ox O2 Del Method 05/13/22 11:52 36.5 C 103 H 18 149/69 H 96 Room Air 05/13/22 06:51 36.5 C 87 18 159/75 H 97 Room Air 05/13/22 04:10 36.5 C 86 18 108/76 97 Room Air PG Care Time/CCT Total # of Minutes Spent Total Time Spent with Patient: Total time spent is greater than 50% in coordination of care (as documented) at patient's floor/unit and/or counseling patient: Coding Level of Care Code 49821 IN/OBS CONSULT LVL 4,60M Diagnoses Dysphagia R13.10
[2022-05-13] MEDS ORDERED: DEXTROSE 10% 1,000 ML IV PRN (16:00)
[2022-05-13] MEDS ORDERED: PERIPHERAL TPN IV SCH (16:00)
[2022-05-13] MEDS ORDERED: [UNRECOGNIZED DRUG - OTHER] IV SCH (16:00)
[2022-05-13] MEDS ORDERED: CLINOLIPID 20% IV FAT EMULSION 150 ML IV SCH (16:00)
[2022-05-13] MEDS: ENOXAPARIN INJ 40 MG/0.4 ML SYR SQ SCH (16:14)
[2022-05-13] MEDS ORDERED: STOP CLINOLIPID ONE (20:00)
[2022-05-14] MEDS: guaiFENesin SUGAR FREE 200 MG/10 ML UDC PO SCH (05:08)
[2022-05-14 07:44] LABS: BUN Creatinine Ratio 54.5 (10-20); Calcium 7.8 mg/dl (8.5-10.1); Creatinine Clr Calc Pharmacy 78.7 ml/min; Est GFR (African American) 110.1 ml/min; Magnesium 1.8 mg/dl (1.7-2.4); Phosphorus 2.9 mg/dl (2.5-4.9); Potassium 4.2 mmol/L (3.5-5.1)
[2022-05-14 08:06] LABS: Hematocrit (blood only) 30.3 % (37.0-47.0); Hemoglobin 9.4 g/dl (12.0-16.0); Mean Corpuscular Hemoglobin 26.9 pg (25.0-34.0); Mean Corpuscular Volume 86.8 fL (80.0-100.0); Nucleated RBC # (auto) 0.02 K/uL (0-0.12); Nucleated RBC % (auto) 0.2 %; Platelet Count 103 K/uL (130-400); RDW Coefficient of Variation 16.5 % (11.5-14.5); RDW Standard Deviation 52.2 fL (36.4-46.3); Red Blood Count 3.49 M/uL (4.20-5.40); White Blood Count 8.57 K/ul (4.8-10.8)
[2022-05-14] MEDS: levETIRAcetam 500 MG in 0.9 % SODIUM CHLORIDE 100 ML IV SCH ×2 (09:19→19:46)
--- NOTE | 2022-05-14 10:47 | Hospitalist Progress Note ---
Date of Service May 14, 2022 Assessment & Plan (1) Interstitial lung disease: (2) Pneumonia: (3) Weakness: (4) Pulmonary hypertension: (5) Hypotension: (6) CHF (congestive heart failure): (7) Dermatomyositis: (8) History of seizures: (9) History of CVA (cerebrovascular accident): Plan 71 y/o presents via EMS with hypotension and persistent cough/congestion. Complex medical history including ILD, pHTN, Dermatomyositis, H/O seizures and CVA. Mg 1.5; replaced. Normotensive s/p 1 LNSB, CXR pleural effusions superimposed PNA vs aspiration pneumonitis, Chest CT negative for PE. ILD: Pneumonia: Weakness: Present on admission with worsening cough and weakness Chest CT: negative for PE. Mild bronchiectasis with stable peripheral interstitial thickening and bibasilar airspace opacities Received IV Zosyn in the ER Completed IV ceftriaxone and Doxy Blood culture no growth Sputum culture light normal oscar Dysphagia Dermatomyositis: Most likely due to the disease progression (dermatomyositis) Video swallow study on 05/09/22 showed poor pharyngeal constriction resulting in significant residue throughout the hypopharynx and incomplete epiglottic deflection. This results in multiple episodes of aspiration with all of the barium consistencies. Load Tallier Dr Shane Hobson has been following patient's case As per rheumatology sometime dysphagia gets better with treatment for the dermat omyositis On 05/10/22, I discussed with Dr Hobson. He stated patient had been poorly adherent with her Cellcept and has occasionally missed her IVIG infusion. Next infusion is within 2 weeks. He recommended to give patient IVIG now at 1g/kg daily for 2 consecutive days. Got 2 doses of IVIG on 05/10/22 and 05/11/22 Dr Hobson recommend continuing IV solumedrol for now and plan to transition to po prednisone 20mg daily once able Video study was repeated 05/11/22 which still shows aspiration across consistencies On 05/11/22, I discussed with patient about need to consider other alternative to oral feeding. We discussed PEG tube feeding but she had declined at the time and insisted on resuming oral feeds Had aspiraton/choking episode early 05/13/22 Patient now wants PEG tube Continue NPO Aspiration precautions Will contact [facility] tomorrow about PEG tube placement Continue PPN for now until PEG tube Monitor electrolyte and replete Hypotension: Possible related to hypovolemia due to poor oral intake in the setting of diuretic Continue to hold Lasix and Aldactone Received gentle IV fluid BP currently normal to mildly elevated Chronic elevated Troponin: -in ED 397, then trending down to 322 No overt ischemia noted on EKG Denies any chest pain Echo showed no LV wall motion abnormality. Ejection fraction 55 to 60% Pulmonary HTN: CHF: -CTA chest showed no evidence of PE. Mild bronchiectasis with stable peripheral interstitial thickening and bibasilar airspace opacities. Echo showed ejection fraction 55 to 60% Monitor closely for volume overload while Aldactone and Lasix on hold Transaminitis Trended down Weakness Due to dermatomyositis PT /OT on board recommend inpatient rehab But patient does not want to go to rehab. She prefer Home with services Continue PT OT Fall precaution H/O seizures: -On Keppra; continue IV for now H/O CVA: -2020 without residual effects DAPT on hold for now as patient is NPO and awaiting possible PEG GERD: Takes TUMS; was on Protonix but DC due to interfering with CellCept Disposition: PCP: Dr. Hatfield Code Status: Full Code VTE Prophylaxis: Lovenox I spent a total of 40 minutes coordinating, documenting, discussed with specialist, family and providing care for this patient excluding time spent in the performance of separately billed services. Admission and Anticipated Discharge Date Admission Date: May 08, 2022 Subjective Patient seen and examined Reports minimal cough today. Denied shortness of breath, chest pain. Denied nausea, vomiting, abd pain. Had one loose stool earlier. No melena/hematochezia Denied fever, chills Denied dysuria, freq, urgency Physical Exam Constitutional: + well hydrated; no acute distress Eyes: PERRL, conjunctivae normal, anicteric sclerae ENMT: external ear and nose normal, oropharynx normal Respiratory: normal respiratory effort; no respiratory distress Cardiovascular: Rate/Rhythm: regular rate and regular rhythm S1 S2 Gastrointestinal (Abdomen): normal bowel sounds, soft, nontender, no hepatosplenomegaly Musculoskeletal: No pedal edema Neurologic: PERRL, EOMI, accommodation nl, no face palsy, no dysarthria Psychiatric: A+Ox3, euthymic affect Results & Data Results & Data Vital Signs (Past 12 Hours) Vital Signs Temp Pulse Resp BP Pulse Ox O2 Del Method 05/14/22 07:47 36.6 C 83 18 162/75 H 99 Room Air 05/14/22 03:28 36.8 C 82 14 166/82 H 97 Room Air 05/13/22 23:05 36.3 C L 82 20 167/79 H 90 Room Air Laboratory Results Abnormal lab results 05/14/22 05/14/22 Range/Units 06:36 07:17 RBC 3.49 L (4.20-5.40) M/uL Hgb 9.4 L (12.0-16.0) g/dl Hct 30.3 L (37.0-47.0) % MCHC 31.0 L (32.0-36.0) g/dL RDW Std Deviation 52.2 H (36.4-46.3) fL RDW Coeff of Myra 16.5 H (11.5-14.5) % Plt Count 103 L (130-400) K/uL Chloride 110 H (98-107) mmol/L BUN 30 H (6-23) mg/dl Creatinine 0.55 L (0.6-1.2) mg/dl BUN/Creatinine Ratio 54.5 H (10-20) Calcium 7.8 L (8.5-10.1) mg/dl (6) CHF (congestive heart failure) Heart failure chronicity: acute Heart failure type: unspecified Qualified Code(s): I50.9 - Heart failure, unspecified
--- NOTE | 2022-05-14 14:57 | Pharmacy Report ---
Pharmacy PN Initial Consult - Date of Service May 14, 2022 - Scope Pharmacy has been consulted to manage parenteral nutrition orders and order appropriate labs. As part of the Nutrition Support Team guidelines, pharmacy will work in conjunction with dietary when determining the patients caloric needs. - Subjective The patient is a 71 year old F admitted on 05/08/22 12:28 for SOB/WEAKNESS. Patient is to receive parenteral nutrition for NPO and dysphagia. Per provider, patient needs temporary PPN until PEG tube can be placed this week by GI. Pertinent PMH: - Objective Height: 5 ft 3 in Weight: 55.9 kg Diet: NPO Vascular Access:: Peripheral Intake & Output (Last 24Hrs): Intake & Output 05/12/22 05/13/22 05/14/22 05/15/22 06:59 06:59 06:59 06:59 Intake Total 2437.850 / 2437.850 755.000 / 755.000 755 / 755 105 / 105 Output Total 1 / 1 0 / 0 2 / 2 Balance 2436.850 / 2436.850 755.000 / 755.000 753 / 753 105 / 105 Weight 57.6 kg 55.9 kg Laboratory Data (Last 24 Hrs):: 05/14/22 06:36 Sodium 139 Potassium 4.2 Chloride 110 H Carbon Dioxide 25 BUN 30 H Creatinine 0.55 L Glucose 82 Calcium 7.8 L Phosphorus 2.9 Magnesium 1.8 Nutrition Assessment:: Please refer to the Notes section of the EMR for the most recent insurance job titles note. - Plan Yesterday was day 1 of PN administration. Patient was ordered 1 liter of PPN at rate of around 42 ml/hr to provide 43 gms of Amino acids, 50 gms of Dextrose and and 30 gms of Lipids. Total calories on day 1 was 640 kcal/day. Today, day 2 of PN administration, PPN was advanced as follows: Macronutrients Amino acids 61 grams/day Dextrose 72 grams/day Lipids 50 grams/day Micronutrients Combined electrolytes [ ] mL - contains 35 mEq Na, 20 meq K, 4.5 mEq Ca, 5 mEq Mg, 35 mEq Cl, 29.5 mEq acetate per 20 mL Sodium phosphate [] MMol Sodium chloride [] mEq Sodium acetate 20 mEq Potassium phosphate 21 mMol Potassium chloride [] mEq Potassium acetate 20 mEq Magnesium sulfate 8.12 mEq Calcium gluconate 4.65 mEq Multivitamins 10 mL Trace Elements 1 mL Additional additives: Thiamine 100 mg Folic acid 1 mg Total volume 1491 mL to be infused over 24 hrs will provide 989 kcal/day Final osmolarity 751.8 mOsm/L (maximum for PPN is 900 mOsm/L) Labs to be ordered per PN order protocol Pharmacy will follow and adjust parenteral nutrition orders on a daily basis. Thank you.
[2022-05-14] MEDS ORDERED: CLINOLIPID 20% IV FAT EMULSION 250 ML IV SCH (16:00)
[2022-05-14] MEDS ORDERED: [UNRECOGNIZED DRUG - OTHER] IV SCH (16:00)
[2022-05-14] MEDS ORDERED: PERIPHERAL TPN IV SCH (16:00)
[2022-05-14] MEDS: ENOXAPARIN INJ 40 MG/0.4 ML SYR SQ SCH (16:24)
[2022-05-14] MEDS: STOP CLINOLIPID SCH (23:11)
[2022-05-15] MEDS ORDERED: MoRPHine SULFATE 4 MG/ML 1 ML CARP\\VIAL IV STA (03:39)
[2022-05-15 08:04] LABS: Calcium 7.7 mg/dl (8.5-10.1); Creatinine Clr Calc Pharmacy 81.7 ml/min; Est GFR (African American) 111.5 ml/min; Est GFR (Non-African American) 96.2 ml/min; Magnesium 1.9 mg/dl (1.7-2.4); Phosphorus 3.1 mg/dl (2.5-4.9); Potassium 4.4 mmol/L (3.5-5.1)
[2022-05-15] MEDS: levETIRAcetam 500 MG in 0.9 % SODIUM CHLORIDE 100 ML IV SCH ×2 (09:25→20:13)
--- NOTE | 2022-05-15 09:40 | Gastroenterology Progress Note ---
Date of Service May 15, 2022 Assessment & Plan (1) Dysphagia: Plan Pt is a 71 yo female w hx of dermatomyositis, followed for oropharyngeal dysphagia. Videoswallow eval showed signs of aspiration. She is currently NPO, on PPN. - Plan for PEG tube placement tentatively on 05/19/22. - Hold Plavix - PPN - Consult student counselor after PEG placed Admission and Anticipated Discharge Date Admission Date: May 08, 2022 Supervising Physician Co-Signing Physician Notes I personally saw and evaluated the patient with VIRY Stone on 05/15/2022 and agree with her findings and plan of care. This is a 71 y/o F with history of ILD, CHF, hx of CVA on plavix, seizures, dermatomyositis on IVIG and cellcept for which GI was consulted for oropharyngeal dysphagia with ongoing aspiration. She is currently on TPN. Had video study 05/11 which showed aspiration with all consistencies and she is recommended to be NPO. She has not trialed NG tube feeds yet as she was hesitant to do this. She reports her only abdominal surgery has been a CCY. On physical exam abdomen is soft, non-tender, non-distended. Will plan for PEG tube on 05/18 to allow for a 5 day Plavix washout. Continue to hold Plavix. Discussed with patient that PEG tube will not reduce aspiration risk which she understands and would like to proceed. I did advise her that she should trial NG tube with feeds at goal rate to make sure she tolerates which she is agreeable to prior to PEG tube placement. Please make sure patient is NPO at midnight on . Cathryn Khan, DO Gastroenterology and Hepatology Subjective Pt up in chair. Denies CP, SOB, abd pain, n/v. On PPI. Last Plavix 05/13 Review of Systems Review of Systems: All systems reviewed & are unremarkable except as noted in HPI & below Physical Exam Constitutional: well groomed, cooperative and comfortable Eyes: PERRL, conjunctivae normal, anicteric sclerae ENMT: external ear and nose normal, oropharynx normal Respiratory: normal respiratory effort, lungs clear to auscultation Cardiovascular: RRR, no murmur, no edema Gastrointestinal (Abdomen): normal bowel sounds, soft, nontender, no hepatosplenomegaly Skin: no rashes, warm and dry no jaundice Psychiatric: A+Ox3, euthymic affect Lymphatic: no lymphedema Results & Data Vital Signs (Past 12 Hours) Vital Signs Temp Pulse Pulse Resp BP BP Pulse Ox 05/15/22 08:14 73 05/15/22 07:07 36.5 C 74 18 161/74 H 100 05/15/22 03:21 36.7 C 81 16 152/79 H 97 05/14/22 23:14 36.9 C 75 18 156/78 H 98 05/14/22 23:00 89 O2 Del Method 05/15/22 08:14 05/15/22 07:07 Room Air 05/15/22 03:21 Room Air 05/14/22 23:14 Room Air 05/14/22 23:00
[2022-05-15] MEDS ORDERED: FUROSEMIDE INJ 20 MG/2 ML VIAL IV ONE (11:00)
--- NOTE | 2022-05-15 12:57 | Hospitalist Progress Note ---
Date of Service May 15, 2022 Assessment & Plan (1) Interstitial lung disease: (2) Pneumonia: (3) Weakness: (4) Pulmonary hypertension: (5) Hypotension: (6) CHF (congestive heart failure): (7) Dermatomyositis: (8) History of seizures: (9) History of CVA (cerebrovascular accident): Plan 71 y/o presents via EMS with hypotension and persistent cough/congestion. Complex medical history including ILD, pHTN, Dermatomyositis, H/O seizures and CVA. Mg 1.5; replaced. Normotensive s/p 1 LNSB, CXR pleural effusions superimposed PNA vs aspiration pneumonitis, Chest CT negative for PE. ILD: Pneumonia: Weakness: Present on admission with worsening cough and weakness Chest CT: negative for PE. Mild bronchiectasis with stable peripheral interstitial thickening and bibasilar airspace opacities Received IV Zosyn in the ER Completed IV ceftriaxone and Doxy Blood culture no growth Sputum culture light normal oscar Dysphagia Dermatomyositis: Most likely due to the disease progression (dermatomyositis) Video swallow study on 05/09/22 showed poor pharyngeal constriction resulting in significant residue throughout the hypopharynx and incomplete epiglottic deflection. This results in multiple episodes of aspiration with all of the barium consistencies. Dual Hose Cementer Dr Shane Hobson has been following patient's case As per rheumatology sometime dysphagia gets better with treatment for the dermat omyositis On 05/10/22, I discussed with Dr Hobson. He stated patient had been poorly adherent with her Cellcept and has occasionally missed her IVIG infusion. Next infusion is within 2 weeks. He recommended to give patient IVIG now at 1g/kg daily for 2 consecutive days. Got 2 doses of IVIG on 05/10/22 and 05/11/22 Dr Hobsno recommend continuing IV solumedrol for now and plan to transition to po prednisone 20mg daily once able Video study was repeated 05/11/22 which still shows aspiration across consistencies On 05/11/22, I discussed with patient about need to consider other alternative to oral feeding. We discussed PEG tube feeding but she had declined at the time and insisted on resuming oral feeds Had aspiraton/choking episode early 05/13/22 Patient now wants PEG tube Currently NPO Aspiration precautions Getting PPN for now while awaiting PEG Will give a dose of iv lasix 20mg today. Discussed with Pharm about using smaller volume for PPN GI planning to place PEG. GI placed order for NGT placement after convincing patient to assess patient tolerance Monitor electrolyte and replete Hypotension: Possible related to hypovolemia due to poor oral intake in the setting of diuretic Continue to hold Lasix and Aldactone Received gentle IV fluid BP currently normal to mildly elevated Chronic elevated Troponin: In ED 397, then trended down to 322 No overt ischemia noted on EKG Denied any chest pain Echo showed no LV wall motion abnormality. Ejection fraction 55 to 60% Pulmonary HTN: CHF: -CTA chest showed no evidence of PE. Mild bronchiectasis with stable peripheral interstitial thickening and bibasilar airspace opacities. Echo showed ejection fraction 55 to 60% Monitor closely for volume overload while home po Aldactone and Lasix on hold Transaminitis Trended down Weakness Due to dermatomyositis PT /OT on board recommend inpatient rehab But patient does not want to go to rehab. She prefer Home with services Continue PT OT Fall precaution H/O seizures: -On Keppra; continue IV for now H/O CVA: -2020 without residual effects DAPT on hold for now as patient is NPO and awaiting possible PEG GERD: Takes TUMS; was on Protonix but DC due to interfering with CellCept Disposition: PCP: Dr. Hatfield Code Status: Full Code VTE Prophylaxis: Lovenox I spent a total of 45 minutes coordinating, documenting, discussed with specialist, family and providing care for this patient excluding time spent in the performance of separately billed services. Admission and Anticipated Discharge Date Admission Date: May 08, 2022 Subjective Patient seen and examined Reports cough Denied shortness of breath, chest pain. Denied nausea, vomiting, abd pain, constipation Denied fever, chills Denied dysuria, freq, urgency Physical Exam Constitutional: + well hydrated; no acute distress Eyes: PERRL, conjunctivae normal, anicteric sclerae ENMT: external ear and nose normal, oropharynx normal Respiratory: normal respiratory effort; no respiratory distress Bibasilar crackles On room air Cardiovascular: Rate/Rhythm: regular rate and regular rhythm S1 S2 Gastrointestinal (Abdomen): normal bowel sounds, soft, nontender, no hepatosplenomegaly Musculoskeletal: Trace pedal edema Neurologic: PERRL, EOMI, accommodation nl, no face palsy, no dysarthria Psychiatric: A+Ox3, euthymic affect Results & Data Results & Data Vital Signs (Past 12 Hours) Vital Signs Temp Pulse Pulse Resp BP Pulse Ox O2 Del Method 05/15/22 10:52 36.4 C L 67 19 127/69 96 Room Air 05/15/22 08:14 73 05/15/22 07:07 36.5 C 74 18 161/74 H 100 Room Air 05/15/22 03:21 36.7 C 81 16 152/79 H 97 Room Air Laboratory Results Abnormal lab results 05/15/22 Range/Units 06:39 BUN 35 H (6-23) mg/dl Creatinine 0.53 L (0.6-1.2) mg/dl BUN/Creatinine Ratio 66.0 H (10-20) Calcium 7.7 L (8.5-10.1) mg/dl (6) CHF (congestive heart failure) Heart failure chronicity: acute Heart failure type: unspecified Qualified Code(s): I50.9 - Heart failure, unspecified
[2022-05-15] MEDS ORDERED: CLINOLIPID 20% IV FAT EMULSION 250 ML IV SCH (16:00)
[2022-05-15] MEDS ORDERED: [UNRECOGNIZED DRUG - OTHER] IV SCH (16:00)
[2022-05-15] MEDS ORDERED: PERIPHERAL TPN IV SCH (16:00)
--- NOTE | 2022-05-15 17:03 | XRay Report ---
KUB HISTORY: Status post placement of an enteric tube ngt placement COMPARISON: 12/05/2018 FINDINGS: A feeding tube has been placed with distal tip projected superiorly. 3 images were submitte d. The last image shows the distal tip in the gastric body. Residual enteric contrast within the larg e bowel. Renal shadows are obscured by bowel gas. No acute fracture identified. Contrast pattern appe ars nonobstructive. IMPRESSION: Status post placement of a feeding tube with distal tip projected superiorly within the stomach. ACT 112: Negative or not required by law. The above report was generated using voice recognition software. It may contain grammatical, syntax o r spelling errors. Electronically signed by: Kenji Santiago M.D. 05/15/2022 5:02 PM
[2022-05-15] MEDS: ENOXAPARIN INJ 40 MG/0.4 ML SYR SQ SCH (17:37)
[2022-05-15] MEDS ORDERED: DEXTROSE 50% 50 ML SYRINGE IV STA (21:15)
[2022-05-15] MEDS: STOP CLINOLIPID SCH (22:43)
[2022-05-16 07:35] LABS: BUN Creatinine Ratio 69.4 (10-20); Calcium 7.6 mg/dl (8.5-10.1); Creatinine Clr Calc Pharmacy 87.1 ml/min; Est GFR (African American) 113.6 ml/min; Magnesium 1.8 mg/dl (1.7-2.4); Phosphorus 3.4 mg/dl (2.5-4.9); Potassium 4.2 mmol/L (3.5-5.1)
[2022-05-16 07:46] LABS: INR 1.1 (0.9-1.1); Prothrombin Time 11.9 Seconds (9.0-12.0)
[2022-05-16 08:23] LABS: Hematocrit (blood only) 28.6 % (37.0-47.0); Mean Corpuscular Hemoglobin 26.8 pg (25.0-34.0); Mean Corpuscular Hgb Conc 31.5 g/dL (32.0-36.0); Mean Corpuscular Volume 85.1 fL (80.0-100.0); Platelet Count 83 K/uL (130-400); Platelet Estimate Decreased (Normal); RDW Coefficient of Variation 16.7 % (11.5-14.5); RDW Standard Deviation 50.8 fL (36.4-46.3); Red Blood Count 3.36 M/uL (4.20-5.40); White Blood Count 9.08 K/ul (4.8-10.8)
[2022-05-16] MEDS: levETIRAcetam 500 MG in 0.9 % SODIUM CHLORIDE 100 ML IV SCH ×2 (08:53→20:41)
[2022-05-16] MEDS ORDERED: FIBERSOURCE HN 1.2 CAL 1000 ML BAG NG SCH (10:45)
--- NOTE | 2022-05-16 11:46 | Gastroenterology Progress Note ---
Date of Service May 16, 2022 Assessment & Plan (1) Dysphagia: Plan Pt is a 71 yo female w hx of dermatomyositis, followed for oropharyngeal dysphagia. Videoswallow eval showed signs of aspiration. She is currently NPO, on PPN. Just had Coresafe placed yesterday, anticipating trickle feeds to see if she will tolerate tube feeding at goal rate - NPO - Plan for PEG tube placement tentatively on 05/19/22. - Hold Plavix - Supervisor Winter consult for Coresafe feeding recs Admission and Anticipated Discharge Date Admission Date: May 08, 2022 Supervising Physician Co-Signing Physician Notes I personally saw and evaluated the patient with VIRY Stone on 05/16/2022 and agree with her findings and plan of care. This is a 71 y/o F with history of ILD, CHF, hx of CVA on plavix, seizures, dermatomyositis on IVIG and cellcept for which GI was consulted for oropharyngeal dysphagia with ongoing aspiration. She is currently on TPN. Had video study 05/11 which showed aspiration with all consistencies and she is recommended to be NPO. She reports her only abdominal surgery has been a CCY. On physical exam abdomen is soft, non-tender, non-distended. Will plan for PEG tube on 05/18 to allow for a 5 day Plavix washout. Continue to hold Plavix. Discussed with patient that PEG tube will not reduce aspiration risk which she understands and would like to proceed. NG tube placed yesterday to begin tube feeds but they have not started yet to make sure she tolerates enteric feeds prior to PEG placement. Please make sure patient is NPO at midnight on . Cathryn Khan, DO Gastroenterology and Hepatology Subjective Patient had Coresafe feeding tube placed yesterday. Has not started trickle feeds yet. Denies any abdominal pain, nausea or vomiting symptoms Review of Systems Review of Systems: All systems reviewed & are unremarkable except as noted in HPI & below Physical Exam Constitutional: well groomed, cooperative and comfortable Eyes: PERRL, conjunctivae normal, anicteric sclerae ENMT: external ear and nose normal, oropharynx normal Respiratory: normal respiratory effort, lungs clear to auscultation Cardiovascular: RRR, no murmur, no edema Gastrointestinal (Abdomen): normal bowel sounds, soft, nontender, no hepatosplenomegaly Skin: no rashes, warm and dry no jaundice Psychiatric: A+Ox3, euthymic affect Lymphatic: no lymphedema Results & Data Vital Signs (Past 12 Hours) Vital Signs Temp Pulse Resp BP Pulse Ox O2 Del Method 05/16/22 11:00 36.3 C L 81 19 133/70 99 Room Air 05/16/22 07:22 36.4 C L 74 18 122/68 97 Room Air 05/16/22 03:08 36.5 C 77 16 165/77 H 96 Room Air
[2022-05-16] MEDS ORDERED: TUBE FEEDING WATER FLUSH NG SCH (12:00)
--- NOTE | 2022-05-16 12:43 | Hospitalist Progress Note ---
Date of Service May 16, 2022 Assessment & Plan (1) Interstitial lung disease: (2) Pneumonia: (3) Weakness: (4) Pulmonary hypertension: (5) Hypotension: (6) CHF (congestive heart failure): (7) Dermatomyositis: (8) History of seizures: (9) History of CVA (cerebrovascular accident): Plan 72 y/o presents via EMS with hypotension and persistent cough/congestion. Complex medical history including ILD, pHTN, Dermatomyositis, H/O seizures and CVA. Mg 1.5; replaced. Normotensive s/p 1 LNSB, CXR pleural effusions superimposed PNA vs aspiration pneumonitis, Chest CT negative for PE. ILD: Pneumonia: Weakness: Present on admission with worsening cough and weakness Chest CT: negative for PE. Mild bronchiectasis with stable peripheral interstitial thickening and bibasilar airspace opacities Received IV Zosyn in the ER Completed IV ceftriaxone and Doxy Blood culture no growth Sputum culture light normal oscar Dysphagia Dermatomyositis: Most likely due to the disease progression (dermatomyositis) Video swallow study on 05/09/22 showed poor pharyngeal constriction resulting in significant residue throughout the hypopharynx and incomplete epiglottic deflection. This results in multiple episodes of aspiration with all of the barium consistencies. Data Analyst Report Writer Dr Shane Hobson has been following patient's case As per rheumatology sometime dysphagia gets better with treatment for the dermat omyositis On 05/10/22, I discussed with Dr Hobson. He stated patient had been poorly adherent with her Cellcept and has occasionally missed her IVIG infusion. Next infusion is within 2 weeks. He recommended to give patient IVIG now at 1g/kg daily for 2 consecutive days. Got 2 doses of IVIG on 05/10/22 and 05/11/22 Dr Hobson recommend continuing IV solumedrol for now and plan to transition to po prednisone 20mg daily once able Video study was repeated 05/11/22 which still shows aspiration across consistencies On 05/11/22, I discussed with patient about need to consider other alternative to oral feeding. We discussed PEG tube feeding but she had declined at the time and insisted on resuming oral feeds Had aspiraton/choking episode early 05/13/22 Patient now wants PEG tube Currently NPO Aspiration precautions Was started on PPN temporarily while awaiting PEG She had declined NGT earlier. GI convinced her to get this placed Discussed with Supervisor Facepiece Line. Will start tube feeding today fibersource at 15cc/h and increase by 15cc/h every 8h to a goal of 55/h, 30cc q4h water flushes today. Discussed with pharm. Will stop PPN after the current bag and do D5W at 50cc/h afterwards until TF goal is achieved by tomorrow GI planning to place PEG tentatively on 05/19/22 Monitor electrolyte and replete Hypotension: Possible related to hypovolemia due to poor oral intake in the setting of diuretic Continue to hold Lasix and Aldactone Received gentle IV fluid BP currently normal to mildly elevated Chronic elevated Troponin: In ED 397, then trended down to 322 No overt ischemia noted on EKG Denied any chest pain Echo showed no LV wall motion abnormality. Ejection fraction 55 to 60% Pulmonary HTN: CHF: -CTA chest showed no evidence of PE. Mild bronchiectasis with stable peripheral interstitial thickening and bibasilar airspace opacities. Echo showed ejection fraction 55 to 60% Monitor closely for volume overload while home po Aldactone and Lasix on hold Can give iv lasix prn Transaminitis Trended down Weakness Due to dermatomyositis PT /OT on board recommend inpatient rehab But patient does not want to go to rehab. She prefer Home with services Continue PT OT Fall precaution H/O seizures: -On Keppra; continue IV for now H/O CVA: -2020 without residual effects DAPT on hold for now as patient is NPO and awaiting possible PEG GERD: Takes TUMS; was on Protonix but DC due to interfering with CellCept Disposition: PCP: Dr. Hatfield Code Status: Full Code VTE Prophylaxis: Lovenox I spent a total of 45 minutes coordinating, documenting, discussed with specialist, family and providing care for this patient excluding time spent in the performance of separately billed services. Admission and Anticipated Discharge Date Admission Date: May 08, 2022 Subjective Patient seen and examined Reports minimal cough Reports only irritation from NGT Denied shortness of breath, chest pain. Denied nausea, vomiting, abd pain, constipation Denied fever, chills Denied dysuria, freq, urgency Physical Exam Constitutional: + well hydrated; no acute distress Eyes: PERRL, conjunctivae normal, anicteric sclerae ENMT: external ear and nose normal, oropharynx normal Respiratory: normal respiratory effort; no respiratory distress Mild basilar crackles. On room air Cardiovascular: Rate/Rhythm: regular rate and regular rhythm S1 S2 Gastrointestinal (Abdomen): normal bowel sounds, soft, nontender, no hepatosplenomegaly Musculoskeletal: No pedal edema Neurologic: PERRL, EOMI, accommodation nl, no face palsy, no dysarthria Psychiatric: A+Ox3, euthymic affect Results & Data Results & Data Vital Signs (Past 12 Hours) Vital Signs Temp Pulse Pulse Resp BP Pulse Ox O2 Del Method 05/16/22 05:59 74 05/16/22 11:00 36.3 C L 81 19 133/70 99 Room Air 05/16/22 07:22 36.4 C L 74 18 122/68 97 Room Air 05/16/22 03:08 36.5 C 77 16 165/77 H 96 Room Air Laboratory Results Abnormal lab results 05/15/22 05/15/22 05/16/22 Range/Units 20:47 22:15 06:52 RBC (4.20-5.40) M/uL Hgb (12.0-16.0) g/dl Hct (37.0-47.0) % MCHC (32.0-36.0) g/dL RDW Std Deviation (36.4-46.3) fL RDW Coeff of Myra (11.5-14.5) % Plt Count (130-400) K/uL Platelet Estimate (Normal) Sodium 133 L (136-145) mmol/L BUN 34 H (6-23) mg/dl Creatinine 0.49 L (0.6-1.2) mg/dl BUN/Creatinine Ratio 69.4 H (10-20) POC Glucose 60 L* 107 H (70-99) mg/dl Calcium 7.6 L (8.5-10.1) mg/dl 05/16/22 05/16/22 Range/Units 07:19 07:27 RBC 3.36 L (4.20-5.40) M/uL Hgb 9.0 L (12.0-16.0) g/dl Hct 28.6 L (37.0-47.0) % MCHC 31.5 L (32.0-36.0) g/dL RDW Std Deviation 50.8 H (36.4-46.3) fL RDW Coeff of Myra 16.7 H (11.5-14.5) % Plt Count 83 L (130-400) K/uL Platelet Estimate Decreased L (Normal) Sodium (136-145) mmol/L BUN (6-23) mg/dl Creatinine (0.6-1.2) mg/dl BUN/Creatinine Ratio (10-20) POC Glucose 100 H (70-99) mg/dl Calcium (8.5-10.1) mg/dl (6) CHF (congestive heart failure) Heart failure chronicity: acute Heart failure type: unspecified Qualified Code(s): I50.9 - Heart failure, unspecified
--- NOTE | 2022-05-16 14:06 | XRay Report ---
KUB CLINICAL HISTORY: Enteric tube placement. FINDINGS: AP, portable, supine abdominal radiograph is compared to study dated 05/15/2022. Correlation is made with abdominal CT dated 12/03/2018. An enteric tube is in place. The tip projects below diaph ragm over the proximal to mid stomach. Cholecystectomy clips are seen in the right upper quadrant. Th ere are mildly distended gas-filled loops of small bowel with no radiographic evidence of high-grade obstruction. Residual enteric contrast is noted in the left colon. This outlines several colonic dive rticula. There are no abnormal abdominal calcifications. The skeletal structures are osteopenic and a ppear intact. There is moderate lumbosacral spondylosis. IMPRESSION: 1. An enteric tube is in place as above. 2. Again seen are distended and gas-filled loops of small bowel with no radiographic evidence of high -grade obstruction. Electronically signed by: Ziyad Estrella M.D. 05/16/2022 2:05 PM
[2022-05-16] MEDS ORDERED: PERIPHERAL TPN IV SCH (16:00)
[2022-05-16] MEDS ORDERED: [UNRECOGNIZED DRUG - OTHER] IV SCH (16:00)
[2022-05-16] MEDS ORDERED: CLINOLIPID 20% IV FAT EMULSION 250 ML IV SCH (16:00)
[2022-05-16] MEDS: DEXTROSE 5% 1,000 ML IV SCH (16:26)
[2022-05-16 16:58] LABS: Pneumocystis jirovecii PCRQual NOT DETECTED; Pneumocystis jirovecii Source SPUTUM
[2022-05-16] MEDS: ENOXAPARIN INJ 40 MG/0.4 ML SYR SQ SCH (18:14)
[2022-05-16] MEDS: TUBE FEEDING WATER FLUSH NG SCH ×2 (18:14→18:15)
[2022-05-17] MEDS: TUBE FEEDING WATER FLUSH NG SCH ×6 (02:26→23:05)
--- NOTE | 2022-05-17 07:29 | XRay Report ---
XR chest 1V portable CLINICAL HISTORY: feeding tube placement TECHNIQUE: Single frontal radiograph of the chest was obtained. Comparison: Comparison is made to chest radiograph 05/12/2022 FINDINGS: Enteric tube terminates in the stomach. The aorta is tortuous. The remainder of the cardiomediastinal silhouette is unremarkable. Reticular interstitial opacities are seen. No evidence of pleural effusi on or pneumothorax. IMPRESSION: Satisfactory position of feeding tube. Chronic interstitial lung disease. ACT 112: Negative or not required by law. Electronically signed by: Xavier Tavares M.D. 05/17/2022 7:28 AM
--- NOTE | 2022-05-17 07:47 | XRay Report ---
XR KUB/Abdomen 1 view CLINICAL HISTORY: placement of feeding tube TECHNIQUE: 1 view of the abdomen was obtained. Comparison: Comparison is made to abdomen radiograph 05/16/2022 FINDINGS: Enteric tube terminates in the stomach. Degenerative changes are seen in the visualized skeleton. The bowel gas pattern is nonobstructive. A left pleural effusion is seen. Interstitial lung disease is p artially noted. IMPRESSION: Nonobstructive bowel gas pattern. Satisfactory position of enteric tube with the tip in the stomach. ACT 112: Negative or not required by law. Electronically signed by: Xavier Tavares M.D. 05/17/2022 7:46 AM
[2022-05-17 07:57] LABS: BUN Creatinine Ratio 50.9 (10-20); Calcium 7.4 mg/dl (8.5-10.1); Creatinine Clr Calc Pharmacy 80.5 ml/min; Est GFR (African American) 110.7 ml/min; Est GFR (Non-African American) 95.5 ml/min; Magnesium 1.7 mg/dl (1.7-2.4); Phosphorus 2.9 mg/dl (2.5-4.9); Potassium 4.1 mmol/L (3.5-5.1)
[2022-05-17 08:27] LABS: Hematocrit (blood only) 27.1 % (37.0-47.0); Hemoglobin 8.6 g/dl (12.0-16.0); Mean Corpuscular Hemoglobin 27.1 pg (25.0-34.0); Mean Corpuscular Hgb Conc 31.7 g/dL (32.0-36.0); Mean Corpuscular Volume 85.5 fL (80.0-100.0); Platelet Count 90 K/uL (130-400); Platelet Estimate Decreased (Normal); RDW Coefficient of Variation 17.2 % (11.5-14.5); RDW Standard Deviation 50.4 fL (36.4-46.3); Red Blood Count 3.17 M/uL (4.20-5.40); White Blood Count 8.05 K/ul (4.8-10.8)
[2022-05-17] MEDS: predniSONE 20 MG TAB NG SCH (09:15)
[2022-05-17] MEDS: levETIRAcetam 500 MG in 0.9 % SODIUM CHLORIDE 100 ML IV SCH ×2 (09:15→20:25)
[2022-05-17] MEDS ORDERED: FIBERSOURCE HN 1.2 CAL 1000 ML BAG NG SCH (11:00)
--- NOTE | 2022-05-17 11:40 | Gastroenterology Progress Note ---
Date of Service May 17, 2022 Assessment & Plan (1) Dysphagia: Plan Pt is a 71 yo female w hx of dermatomyositis, followed for oropharyngeal dysphagia. Videoswallow eval showed signs of aspiration. She is currently NPO, on PPN. Had Coresafe placed 05/15, started TF at 25ml/hr, goal rate 55ml/hr. - NPO - Plan for PEG tube placement tentatively on 05/18/22. - Hold Plavix - Outside Sales Inspector consult for Coresafe feeding recs Admission and Anticipated Discharge Date Admission Date: May 08, 2022 Supervising Physician Co-Signing Physician Notes Patient not personally seen today. Planning for PEG tube tomorrow. Continue to hold plavix. NPO at midnight including tube feeds. Cathryn Khan, Gastroenterology and Hepatology Subjective Pt had TF started at 25ml/hr via Coresafe. Denies abd pain, n/v. Goal rate 55ml/hr Review of Systems Review of Systems: All systems reviewed & are unremarkable except as noted in HPI & below Physical Exam Constitutional: well groomed, cooperative and comfortable Eyes: PERRL, conjunctivae normal, anicteric sclerae ENMT: external ear and nose normal, oropharynx normal Respiratory: normal respiratory effort, lungs clear to auscultation Cardiovascular: RRR, no murmur, no edema Gastrointestinal (Abdomen): normal bowel sounds, soft, nontender, no hepatosplenomegaly Skin: no rashes, warm and dry no jaundice Psychiatric: A+Ox3, euthymic affect Lymphatic: no lymphedema Results & Data Vital Signs (Past 12 Hours) Vital Signs Temp Pulse Pulse Resp BP Pulse Ox O2 Del Method 05/17/22 11:09 36.8 C 88 18 137/72 96 Room Air 05/17/22 05:59 80 05/17/22 07:18 36.4 C L 81 19 133/64 96 Room Air 05/17/22 02:56 36.5 C 77 18 129/67 98 Room Air
[2022-05-17] MEDS: DEXTROSE 5% 1,000 ML IV SCH (12:15)
[2022-05-17] MEDS ORDERED: LORazepam 2 MG/1 ML VIAL IV ONE (17:30)
[2022-05-17] MEDS: ENOXAPARIN INJ 40 MG/0.4 ML SYR SQ SCH (17:43)
--- NOTE | 2022-05-17 19:42 | Hospitalist Progress Note ---
Date of Service May 17, 2022 Assessment & Plan (1) Interstitial lung disease: (2) Pneumonia: (3) Weakness: (4) Pulmonary hypertension: (5) Hypotension: (6) CHF (congestive heart failure): (7) Dermatomyositis: (8) History of seizures: (9) History of CVA (cerebrovascular accident): Plan 71 y/o presents with EMS with hypotension and persistent cough/congestion. Complex medical history including ILD, pHTN, Dermatomyositis, H/O seizures and CVA. Mg 1.5; replaced. Normotensive s/p 1 LNSB, CXR pleural effusions superimposed PNA vs aspiration pneumonitis, Chest CT negative for PE. See HPI for further details. ILD: PNA: Weakness: -Follows with Pulm in [place]; Dr. Portillo. -No Leukocytosis; WBC 9.77 -CXR pleural effusion with questionable superimposed pneumonia vs aspiration pneumonitis; CXR in AM -Chest CT: negative for PE. Mild bronchiectasis with stable peripheral interstitial thickening and bibasilar airspace opacities -1 dose IV Zosyn in ED; Started Ceftriaxone + Doxy -Blood cultures pending; adjust abx as necessary -Lactate 1.9 -Mg+ 11.5--> 1G; recheck in AM -Procalcitonin negative -Flutter Valve ordered QID -Mucinex ordered -Last PFT's 2016; FEV1 83 -Consult Pulmonary for evaluation of ILD and pleural effusions; audible crackles; suspect mix of ILD and possible CHF exacerbation -Will need inpatient rehab Dysphagia Due to disease process Currently on NG tube feeding Plan for Peg tube placement in am Elevated Troponin: -in ED 397; no overt ischemia noted on EKG -Denies any chest pain Echo showed no LV wall motion abnormality. Ejection fraction 55 to 60% Resolved Pulmonary HTN: CHF: -CXR pleural effusion with questionable superimposed pneumonia vs aspiration pneumonitis; CXR in AM -Takes Aldactone and Lasix; hold for now due to hypotension on arrival. -Continue monitor closely Dermatomyositis: -Follows with Rheumatology; Dr. Moncada. Will reach out for recommendations -Prescribed CellCept; not compliant per pt and daughter -CK level 1800; was 700 in 02/16 -Case Discussed with Dr. Moncadaon admission that recommended Methylprednisone 60 mg IV daily x3 days; then switch to Prednisone 20 mg PO daily until discharge; notify Rheumatology upon discharge and he will taper as necessary. -Dr. Hobson suggests reiterating importance of taking medications with compliance to avoid decline -Continue Prednisone 20mg daily H/O seizures: -On Keppra; continue H/O CVA: -2020 without residual effects -On Dual antiplatelet therapy (ASA and Plavix) + statin; continue GERD: -Takes TUMS; was on Protonix but DC due to interfering with CellCept Disposition: PCP: Dr. Hatfield Code Status: Full Code VTE Prophylaxis: Lovenox Admission and Anticipated Discharge Date Admission Date: May 08, 2022 Subjective Pt was seen and examined for follow up Lying in bed with no acute distress watching TV She is schedule tomorrow for peg tube placement Nurse said pt has been anxious due to the recent of her daughter Denies any chest pain, palpitation, dizziness and SOB Review of Systems Review of Systems: All systems reviewed & are unremarkable except as noted in Subjective Physical Exam Physical Exam: General- No acute distress Head- atraumatic Eyes- PERRL, EOMI, ENT- oropharynx clear Neck- supple, no JVD Lungs- Diminished BS Heart- regular rhythm; no murmur Abdomen- normal bowel sounds, soft, nontender Extremities- no calf tenderness Neuro- alert, oriented x 3; PERRL, EOMI; no facial palsy; no dysarthria Skin- warm & dry Results & Data Results & Data Vital Signs (Past 12 Hours) Vital Signs Temp Pulse Pulse Resp BP Pulse Ox O2 Del Method 05/17/22 14:03 77 05/17/22 15:09 36.4 C L 78 19 130/71 93 Room Air 05/17/22 11:09 36.8 C 88 18 137/72 96 Room Air (6) CHF (congestive heart failure) Heart failure chronicity: acute Heart failure type: unspecified Qualified Code(s): I50.9 - Heart failure, unspecified
[2022-05-18] MEDS: TUBE FEEDING WATER FLUSH NG SCH ×7 (01:43→21:39)
[2022-05-18] MEDS ORDERED: ceFAZolin 2000MG 2,000 MG/15 ML SYR IV ONE ×2 (06:00→10:30)
[2022-05-18] MEDS: DEXTROSE 5% 1,000 ML IV SCH (07:35)
[2022-05-18] MEDS: levETIRAcetam 500 MG in 0.9 % SODIUM CHLORIDE 100 ML IV SCH ×2 (08:27→20:43)
[2022-05-18] MEDS: predniSONE 20 MG TAB NG SCH (08:29)
[2022-05-18 08:32] LABS: BUN Creatinine Ratio 42.3 (10-20); Calcium 7.9 mg/dl (8.6-10.3); Creatinine Clr Calc Pharmacy 82.1 ml/min; Est GFR (African American) 111.4 ml/min; Est GFR (Non-African American) 96.1 ml/min
[2022-05-18 08:41] LABS: Hematocrit (blood only) 28.3 % (37.0-47.0); Hemoglobin 8.7 g/dl (12.0-16.0); Mean Corpuscular Hemoglobin 26.9 pg (25.0-34.0); Mean Corpuscular Hgb Conc 30.7 g/dL (32.0-36.0); Mean Corpuscular Volume 87.6 fL (80.0-100.0); Platelet Count 100 K/uL (130-400); Platelet Estimate Decreased (Normal); RDW Coefficient of Variation 17.9 % (11.5-14.5); RDW Standard Deviation 50.8 fL (36.4-46.3); Red Blood Count 3.23 M/uL (4.20-5.40); White Blood Count 5.71 K/ul (4.8-10.8)
--- NOTE | 2022-05-18 09:31 | Gastroenterology Progress Note ---
Date of Service May 18, 2022 Assessment & Plan (1) Dysphagia: Plan Pt is a 71 yo female w hx of dermatomyositis, followed for oropharyngeal dysphagia. Videoswallow eval showed signs of aspiration. She is currently NPO, was on PPN. Had Coresafe placed 05/15, started TF at 25ml/hr, goal rate 55ml/hr. - NPO; TF held overnight - Plan for PEG tube placement today - Hold Plavix - Dobby Loom Fixer consult for TF feeding recs once placed Admission and Anticipated Discharge Date Admission Date: May 08, 2022 Supervising Physician Co-Signing Physician Notes I personally saw and evaluated the patient on 05/18/2022 with VIRY Stone. Physical exam- chronically ill appearing, frail, abdomen soft and non-tender. Will plan for PEG tube placement today. Dose of Ancef will be given prior to tube placement. Cathryn Khan, Gastroenterology and Hepatology Subjective Tube feeds held. Pt denies CP, SOB, abd pain, n/v. Review of Systems Review of Systems: All systems reviewed & are unremarkable except as noted in HPI & below Physical Exam Constitutional: well groomed, cooperative and comfortable Eyes: PERRL, conjunctivae normal, anicteric sclerae ENMT: external ear and nose normal, oropharynx normal Respiratory: normal respiratory effort, lungs clear to auscultation Cardiovascular: RRR, no murmur, no edema Gastrointestinal (Abdomen): normal bowel sounds, soft, nontender, no hepatosplenomegaly Skin: no rashes, warm and dry no jaundice Psychiatric: A+Ox3, euthymic affect Lymphatic: no lymphedema Results & Data Vital Signs (Past 12 Hours) Vital Signs Temp Pulse Pulse Resp BP BP Pulse Ox 05/18/22 07:33 36.3 C L 78 19 124/67 100 05/18/22 02:34 37 C 71 18 133/74 97 05/17/22 23:00 77 05/17/22 22:39 36.6 C 81 18 132/71 96 O2 Del Method 05/18/22 07:33 Room Air 05/18/22 02:34 Room Air 05/17/22 23:00 05/17/22 22:39 Room Air
--- NOTE | 2022-05-18 10:52 | Anesthesiology Consultation ---
Date of Service May 18, 2022 Assessment & Plan Chart Review Chart Review: Acceptable Risk for Surgery Consults Requested none ASA ASA3 Proposed Anesthesia Anesthesia Type: MAC Risk / Benefits Reviewed With: PT / POA / Parent / Guardian, Accepts Plan and Informed Consent Obtained History Surgery Operation Date: 05/18/22 16:30 Proposed Procedures p Esophagogastroduodenoscopy Erin Khan, Height/Weight Height: 5 ft 3 in Weight: 56 kg Allergies Allergy/AdvReac Type Severity Reaction Status Date / Time No Known Allergies Allergy Verified 05/18/22 10:31 Medications Home Medications Medication Instructions Recorded Confirmed Last Taken doxepin 50 mg capsule 50 - 150 mg PO HS PRN Sleep 12/03/18 05/08/22 Unknown gabapentin 100 mg capsule 100 mg PO TID 12/03/18 05/08/22 08/26/20 mycophenolate mofetil 500 mg tablet 1,000 mg PO BID 12/03/18 05/08/22 08/26/20 aspirin 81 mg tablet,delayed 81 mg PO QAM #90 tabs 08/30/20 05/08/22 Unknown release atorvastatin 40 mg tablet 40 mg PO QAM #30 tabs 08/30/20 05/08/22 Unknown clopidogrel 75 mg tablet (Plavix) 75 mg PO DAILY #30 tabs 08/30/20 05/08/22 Unkn own levetiracetam 500 mg tablet 500 mg PO BID #60 tabs 08/30/20 05/08/22 Unknown (Keppra) furosemide 20 mg tablet (Lasix) 20 mg 3XWK 05/08/22 05/08/22 Unknown potassium 20 mg chewable tablet 10 mg PO 3XWK 05/08/22 05/08/22 Unknown spironolactone 25 mg tablet 25 mg PO DAILY 05/08/22 05/08/22 Unknown (Aldactone) Active Medications Generic Name Dose Route Start Last Admin Trade Name Freq PRN Reason Stop Dose Admin Aspirin 81 mg 05/09/22 09:00 05/13/22 08:49 Aspirin 81 Mg Ectab PO 06/08/22 08:59 81 mg QAM JONATHAN Administration Atorvastatin Calcium 40 mg 05/09/22 09:00 05/13/22 08:49 Atorvastatin 40 Mg Tab PO 06/08/22 08:59 40 mg QAM JONATHAN Administration Clopidogrel Bisulfate 75 mg 05/09/22 09:00 05/13/22 08:49 Clopidogrel Bisulfate 75 Mg Tab PO 06/08/22 08:59 75 mg DAILY JONATHAN Administration Gabapentin 100 mg 05/08/22 14:00 05/12/22 08:43 Gabapentin 100 Mg Cap PO 06/07/22 13:59 Not Given TID JONATHAN Guaifenesin 1,200 mg 05/08/22 21:00 05/12/22 20:47 Guaifenesin 600 Mg Tabcr PO 06/07/22 20:59 Not Given Q12 JONATHAN Guaifenesin 200 mg 05/12/22 21:00 05/14/22 05:08 Guaifenesin Sugar Free 200 Mg/10 Ml Udc PO 06/11/22 20:59 Not Given BID JONATHAN Levetiracetam 500 mg/ Sodium 105 mls @ 420 mls/hr 05/09/22 21:00 05/18/22 09:08 Chloride IV 06/08/22 20:59 Infused BID JONATHAN Infusion Dextrose 1,000 mls @ 50 mls/hr 05/16/22 16:00 05/18/22 07:35 D5w IV 06/15/22 15:59 50 mls/hr .Q20H JONATHAN Administration Levetiracetam 500 mg 05/08/22 21:00 05/09/22 10:17 Levetiracetam 500 Mg Tab PO 06/07/22 20:59 Not Given BID JONATHAN Mycophenolate Mofetil 1,000 mg 05/12/22 21:00 05/13/22 08:49 Mycophenolate Susp 200 Mg/1 Ml PO 06/11/22 20:59 1,000 mg BID JONATHAN Administration Prednisone 20 mg 05/17/22 09:00 05/18/22 08:29 Prednisone 20 Mg Tab NG 06/16/22 08:59 20 mg DAILY JONATHAN Administration Sterile Water 30 ml 05/16/22 18:00 05/18/22 05:13 Tube Feeding Water Flush NG 06/15/22 17:59 Not Given Q4H JONATHAN NPO Date Last Intake of Fluids: 05/18/22 Date Last Intake of Solids: 05/17/22 Time Last Intake of Solids: 23:59 Last Intake of Solids Comment: tube feeding stopped Past Medical History Medical History Acute dyspnea Acute metabolic encephalopathy Acute respiratory failure with hypoxia Anemia Aspiration pneumonia DVT prophylaxis Elevated troponin History of CVA (cerebrovascular accident) History of seizures Pneumonia Pulmonary hypertension Shortness of breath UTI (urinary tract infection) Weakness Exercise / Class Metabolic Activity II 4-5 Yardwork/Stairs/Walk up hill Past Surgical History Surgical History History of hysterectomy Past Anesthesia History No Hx of Anesthesia Complications History of PONV No Hx of PONV Social History Smoking Status: Former smoker tobacco type: cigarettes Hx Alcohol Use: No Hx Substance Use: No Review of Systems ROS Unobtainable: All systems reviewed & are unremarkable except as noted in HPI & below Physical Exam Vital Signs Last Vital Signs Temp 36.4 C L 05/18/22 10:33 Pulse 71 05/18/22 10:33 Resp 18 05/18/22 10:33 BP 132/64 05/18/22 10:33 Pulse Ox 98 05/18/22 10:33 O2 Del Method Room Air 05/18/22 10:33 O2 Flow Rate 10 05/12/22 22:15 Constitutional + cachectic ENMT Thyromental Distance: > or= 3.5 Finger Breadths Mallampati Class: II ngt in place Respiratory Auscultation: + diminished lung sounds Cardiovascular Rate/Rhythm: regular rate and regular rhythm Testing Laboratory Results 05/18/22 07:29 05/18/22 07:29 PT 11.9 Seconds (9.0-12.0) 05/16/22 06:52 INR 1.1 (0.9-1.1) 05/16/22 06:52 Urine Color Yellow 05/08/22 14:05 Urine Appearance Clear (Clear) 05/08/22 14:05 Urine pH 5.5 (4.5-7.5) 05/08/22 14:05 Ur Specific Colbert 1.028 (1.000-1.030) 05/08/22 14:05 Urine Protein 1+ (Negative) H 05/08/22 14:05 Urine Glucose (UA) Negative (Negative) 05/08/22 14:05 Urine Ketones Trace (Negative) H 05/08/22 14:05 Urine Nitrite Negative (Negative) 05/08/22 14:05 Ur Leukocyte Esterase Trace (Negative) H 05/08/22 14:05 Urine WBC (Auto) 1-5 /hpf (0-5) 05/08/22 14:05 Urine RBC (Auto) 0-4 /hpf (0-4) 05/08/22 14:05 U Hyaline Cast (Auto) 1-5 /lpf (0-5) 05/08/22 14:05 U Epithel Cells (Auto) >30 /lpf (0-5) H 05/08/22 14:05 Urine Bacteria (Auto) Negative (Negative) 05/08/22 14:05 05/08/22 17:20 Acid Fast Bacilli Smear - Final Sputum, Expectorated Acid Fast Bacilli Culture - Preliminary No Acid-Fast Bacilli Isolated - Report 1, Additional Report to Follow. 05/08/22 09:40 Aerobic Blood Culture - Final Blood No growth in Aerobic bottle after 5 days. Anaerobic Blood Culture - Final No growth in Anaerobic bottle after 5 days. 05/08/22 10:17 Aerobic Blood Culture - Final Blood No growth in Aerobic bottle after 5 days. Anaerobic Blood Culture - Final 05/08/22 23:35 Gram Stain - Final Sputum, Expectorated Sputum Culture - Final Light normal oscar. 05/18/22 05/17/22 06:01 23:56 POC Glucose 83 115 H
[2022-05-18] MEDS ORDERED: LIDOCAINE 2% MPF LOCAL 5 ML VIAL ONE (11:27)
[2022-05-18] MEDS ORDERED: PROPOFOL IV EMULSION 10 MG/ML 20 ML VIAL IV ONE (11:27)
[2022-05-18] MEDS ORDERED: GLYCOPYRROLATE 0.2 MG/ML VIAL ONE (11:27)
[2022-05-18] MEDS ORDERED: ONDANSETRON INJ 2 MG/ML 2 ML VIAL ONE (11:27)
--- NOTE | 2022-05-18 11:36 | GI REPORT ---
Addendum Number: 1 Addendum Date: 05/18/2022 12:03:26 PM 1 dose of Ancef was given prior to PEG tube placement. Her last dose of plavix was 5 days ago. Cathryn Khan DO 05/18/2022 12:06:17 PM Patient Name: Rochelle Chowdary Procedure Date: 05/18/2022 11:03 AM Date of : 1950 Admit Type: Inpatient Age: 72 Gender: Female Attending MD: Cathryn Khan DO, Procedure: Upper GI endoscopy Providers: aCthryn Khan DO Referring MD: Referred Self Indications: Place PEG due to aspiration risk Patient Profile: This is a 72 year old female. Refer to note in patient chart for documentation of history and physical. Medicines: Monitored Anesthesia Care Complications: No immediate complications. Estimated Blood Loss: Estimated blood loss was minimal. Procedure: Pre-Anesthesia Assessment: - Prior to the procedure, a History and Physical was performed, and patient medications and allergies were reviewed. The risks and benefits of the procedure and the sedation options and risks were discussed with the patient. All questions were answered and informed consent was obtained. Patient identification and proposed procedure were verified by the physician, the nurse and the manager market research in the procedure room. Mental Status Examination: alert and oriented. Airway Examination: Mallampati Class II (the uvula but not tonsillar pillars visualized). Respiratory Examination: clear to auscultation. CV Examination: RRR, no murmurs, no S3 or S4. Prophylactic Antibiotics: The patient does not require prophylactic antibiotics. Prior Anticoagulants: The patient has taken no anticoagulant or antiplatelet agents. ASA Grade Assessment: IV - A patient with severe systemic disease that is a constant threat to life. After reviewing the risks and benefits, the patient was deemed in satisfactory condition to undergo the procedure. The anesthesia plan was to use monitored anesthesia care (MAC). Immediately prior to administration of medications, the patient was re-assessed for adequacy to receive sedatives. The physical status of the patient was re-assessed after the procedure. After obtaining informed consent, the endoscope was passed under direct vision. Throughout the procedure, the patient's blood pressure, pulse, and oxygen saturations were monitored continuously. The Endoscope was introduced through the mouth, and advanced to the second part of duodenum. The upper GI endoscopy was accomplished without difficulty. The patient tolerated the procedure well. Findings: The Z-line was regular and was found 37 cm from the incisors. LA Grade C (one or more mucosal breaks continuous between tops of 2 or more mucosal folds, less than 75% circumference) esophagitis with no bleeding was found. Diffuse inflammation characterized by erythema was found in the gastric body. The exam of the stomach was otherwise normal. The patient was placed in the supine position for PEG placement. The stomach was insufflated to appose gastric and abdominal salazar. A site was located in the body of the stomach with excellent transillumination and manual external pressure for placement. The abdominal wall was marked and prepped in a sterile manner. The area was anesthetized with 3 mL of 1% lidocaine. The trocar needle was introduced through the abdominal wall and into the stomach under direct endoscopic view. A snare was introduced through the endoscope and opened in the gastric lumen. The guide wire was passed through the trocar and into the open snare. The snare was closed around the guide wire. The endoscope and snare were removed, pulling the wire out through the mouth. A skin incision was made at the site of needle insertion. The 20 Fr Cook gastrostomy tube was lubricated. The G-tube was tied to the guide wire and pulled through the mouth and into the stomach. The trocar needle was removed, and the gastrostomy tube was pulled out from the stomach through the skin. The external bumper was attached to the gastrostomy tube, and the tube was cut to remove the guide wire. The final position of the gastrostomy tube was confirmed by relook endoscopy, and skin marking noted to be 4 cm at the external bumper. The final tension and compression of the abdominal wall by the PEG tube and external bumper were checked and revealed that the bumper was loose and lightly touching the skin. The feeding tube was capped, and the tube site cleaned and dressed. The duodenal bulb and second portion of the duodenum were normal. Impression: - Z-line regular, 37 cm from the incisors. - LA Grade C esophagitis with contact bleeding. - Gastritis. - Normal duodenal bulb and second portion of the duodenum. - A PEG placement was successfully completed. - No specimens collected. Recommendation: - Return patient to [facility] for ongoing care. - Resume previous diet. - Continue present medications. - Place on PPI gtt for esophagitis. There was some bleeding after the PEG was pulled through from the esophagitis with an eschar that sloughed off. When she is discharged she will need PPI 40 mg BID. - Hold plavix today to ensure no bleeding. - Ok to use PEG for meds and flushes today and can begin tube feeds tomorow. Cathryn Khan, DO 05/18/2022 11:35:55 AM Note Initiated On: 05/18/2022 11:03 AM Number of Addenda: 1 I attest to the content of the Intraoperative Record and orders documented therein, exceptions below {[id number]}
[2022-05-18] MEDS: PANTOprazole 40 MG in DEXTROSE 5% 100 ML IV SCH ×3 (13:07→21:39)
--- NOTE | 2022-05-18 15:12 | Anesthesiology Progress Note ---
Date of Service May 18, 2022 Anesthesia Post Procedure Vital Signs Vital Signs: Temp Pulse Pulse Resp BP BP Pulse Ox 05/18/22 12:40 36.3 C L 76 18 155/71 H 91 05/18/22 12:03 76 16 152/66 H 95 05/18/22 11:55 71 16 157/60 H 99 05/18/22 11:33 75 16 125/74 99 05/18/22 10:33 36.4 C L 71 18 132/64 98 05/18/22 06:19 76 05/18/22 07:33 36.3 C L 78 19 124/67 100 05/18/22 02:34 37 C 71 18 133/74 97 05/17/22 23:00 77 05/17/22 22:39 36.6 C 81 18 132/71 96 05/17/22 19:45 36.5 C 75 18 130/69 96 O2 Del Method 05/18/22 12:40 Room Air 05/18/22 12:03 Room Air 05/18/22 11:55 Room Air 05/18/22 11:33 Room Air 05/18/22 10:33 Room Air 05/18/22 06:19 05/18/22 07:33 Room Air 05/18/22 02:34 Room Air 05/17/22 23:00 05/17/22 22:39 Room Air 05/17/22 19:45 Room Air Transfer of Care Handoff Completed per policy Notes Mental Status: alert / awake / arousable and participated in evaluation Nausea / Vomiting: adequately controlled Pain: adequately controlled Airway Patency, RR, SpO2: stable & adequate BP & HR: stable & adequate Hydration State: stable & adequate Anesthetic Complications: no major complications apparent and Pt Satisfied with anesthetic care
[2022-05-18] MEDS ORDERED: ACETAMINOPHEN 1,000 MG/100 ML VIAL IV PRN (19:21)
[2022-05-18] MEDS ORDERED: ACETAMINOPHEN SUSP 500 MG/15.6 ML UDP PEG PRN (19:23)
--- NOTE | 2022-05-18 22:59 | Hospitalist Progress Note ---
Date of Service May 18, 2022 Assessment & Plan (1) Interstitial lung disease: (2) Pneumonia: (3) Weakness: (4) Pulmonary hypertension: (5) Hypotension: (6) CHF (congestive heart failure): (7) Dermatomyositis: (8) History of seizures: (9) History of CVA (cerebrovascular accident): Plan 71 y/o presents with EMS with hypotension and persistent cough/congestion. Complex medical history including ILD, pHTN, Dermatomyositis, H/O seizures and CVA. Mg 1.5; replaced. Normotensive s/p 1 LNSB, CXR pleural effusions superimposed PNA vs aspiration pneumonitis, Chest CT negative for PE. See HPI for further details. ILD: PNA: Weakness: -Follows with Pulm in [place]; Dr. Portillo. -No Leukocytosis; WBC 9.77 -CXR pleural effusion with questionable superimposed pneumonia vs aspiration pneumonitis; CXR in AM -Chest CT: negative for PE. Mild bronchiectasis with stable peripheral interstitial thickening and bibasilar airspace opacities -1 dose IV Zosyn in ED; Started Ceftriaxone + Doxy -Blood cultures pending; adjust abx as necessary -Lactate 1.9 -Mg+ 11.5--> 1G; recheck in AM -Procalcitonin negative -Flutter Valve ordered QID -Mucinex ordered -Last PFT's 2016; FEV1 83 -Consult Pulmonary for evaluation of ILD and pleural effusions; audible crackles; suspect mix of ILD and possible CHF exacerbation -Will need inpatient rehab Dysphagia Due to disease process EGD showed esophagitis S/P peg tube placement this morning case discussed with GI that recommended to use peg tube tomorrow for feeding, but ok to use after 4hrs for meds Iv PPI drip started today fo the esophagitis Elevated Troponin: -in ED 397; no overt ischemia noted on EKG -Denies any chest pain Echo showed no LV wall motion abnormality. Ejection fraction 55 to 60% Resolved Pulmonary HTN: CHF: -CXR pleural effusion with questionable superimposed pneumonia vs aspiration pneumonitis; CXR in AM -Takes Aldactone and Lasix; hold for now due to hypotension on arrival. -Continue monitor closely Dermatomyositis: -Follows with Rheumatology; Dr. Moncada. Will reach out for recommendations -Prescribed CellCept; not compliant per pt and daughter -CK level 1800; was 700 in 02/16 -Case Discussed with Dr. Wilburn admission that recommended Methylprednisone 60 mg IV daily x3 days; then switch to Prednisone 20 mg PO daily until discharge; notify Rheumatology upon discharge and he will taper as necessary. -Dr. Hobson suggests reiterating importance of taking medications with compliance to avoid decline -Continue Prednisone 20mg daily H/O seizures: -On Keppra; continue H/O CVA: -2020 without residual effects -On Dual antiplatelet therapy (ASA and Plavix) + statin; continue GERD: -Takes TUMS; was on Protonix but DC due to interfering with CellCept Disposition: PCP: Dr. Hatfield Code Status: Full Code VTE Prophylaxis: will resume Lovenox Admission and Anticipated Discharge Date Admission Date: May 08, 2022 Subjective Pt was seen and examined for follow up Sitting in bed with no acute distress Pt said that she feels ok She had her peg tube placed this morning I spoke to daughter in details yesterday Daughter was concern about patient was confused. She said pt has been confused for year But pt lives alone for year. I explained to daughter that patient is not confused. Pt said that the reason daughter kept saying that she is confused because she wants her to go to rehab Denies any chest pain, palpitation, dizziness and SOB Review of Systems Review of Systems: All systems reviewed & are unremarkable except as noted in Subjective Physical Exam Physical Exam: General- No acute distress Head- atraumatic Eyes- PERRL, EOMI, ENT- oropharynx clear Neck- supple, no JVD Lungs- Diminished BS Heart- regular rhythm; no murmur Abdomen- normal bowel sounds, soft, nontender Extremities- no calf tenderness Neuro- alert, oriented x 3; PERRL, EOMI; no facial palsy; no dysarthria Skin- warm & dry Results & Data Results & Data Vital Signs (Past 12 Hours) Vital Signs Temp Pulse Pulse Resp BP BP Pulse Ox 05/18/22 22:49 36.5 C 72 18 121/67 97 05/18/22 19:35 05/18/22 19:33 36.4 C L 72 18 107/61 97 05/18/22 14:00 69 05/18/22 15:18 36.3 C L 68 17 135/72 100 05/18/22 12:40 36.3 C L 76 18 155/71 H 91 05/18/22 12:03 76 16 152/66 H 95 05/18/22 11:55 71 16 157/60 H 99 05/18/22 11:33 75 16 125/74 99 O2 Del Method 05/18/22 22:49 Room Air 05/18/22 19:35 Room Air 05/18/22 19:33 Room Air 05/18/22 14:00 05/18/22 15:18 Room Air 05/18/22 12:40 Room Air 05/18/22 12:03 Room Air 05/18/22 11:55 Room Air 05/18/22 11:33 Room Air (6) CHF (congestive heart failure) Heart failure chronicity: acute Heart failure type: unspecified Qualified Code(s): I50.9 - Heart failure, unspecified
[2022-05-19] MEDS: MoRPHine SULFATE 2 MG/ML CARP IV PRN ×2 (00:53→05:33)
[2022-05-19] MEDS: TUBE FEEDING WATER FLUSH NG SCH ×4 (00:54→13:27)
[2022-05-19] MEDS: PANTOprazole 40 MG in DEXTROSE 5% 100 ML IV SCH ×5 (02:44→23:32)
[2022-05-19] MEDS: DEXTROSE 5% 1,000 ML IV SCH ×2 (04:22→23:31)
[2022-05-19] MEDS: predniSONE 20 MG TAB NG SCH (08:08)
[2022-05-19] MEDS: levETIRAcetam 500 MG in 0.9 % SODIUM CHLORIDE 100 ML IV SCH ×2 (08:08→20:54)
--- NOTE | 2022-05-19 10:25 | Communication Note ---
Date of Service: May 19, 2022 20Fr Cook PEG tube placed via endoscopy on 05/18. Pt tolerating water flushes and meds through PEG wo abd pain, n/v. She did have severe esophagitis w bleeding noted during EGD. Had been on PPI gtt. Nurse report no black tarry stools or rectal bleeding overnight. AM labs pending On exam, pt laying in bed, awake, alert, oriented. Abd soft, mild TTP over PEG site. PEG in place, no erythema, blood or discharge on insertion site. BS present. Plans: - NPO - Awaiting AM labs to monitor blood ct - If blood ct stable, ok to start TF via PEG tube today. - GI to sign off; pls recall prn
[2022-05-19 10:57] LABS: BUN Creatinine Ratio 25.4 (10-20); Calcium 8.3 mg/dl (8.6-10.3); Creatinine Clr Calc Pharmacy 63.7 ml/min; Est GFR (African American) 102.5 ml/min; Est GFR (Non-African American) 88.4 ml/min; Magnesium 1.9 mg/dl (1.7-2.4); Phosphorus 3.4 mg/dl (2.5-4.9); Potassium 3.9 mmol/L (3.5-5.1)
[2022-05-19 11:07] LABS: White Blood Count 8.35 K/ul (4.8-10.8)
[2022-05-19 11:08] LABS: Basophils # (auto) 0.02 K/uL (0-0.2); Basophils % (auto) 0.2 %; Eosinophils # (auto) 0.12 K/uL (0-0.50); Eosinophils % (auto) 1.4 %; Hematocrit (blood only) 32.2 % (37.0-47.0); Hemoglobin 9.9 g/dl (12.0-16.0); Immature Granulocytes # (auto) 0.04 K/uL (0.01-0.20); Immature Granulocytes % (auto) 0.5 %; Lymphocytes # (auto) 0.55 K/uL (1.2-3.4); Lymphocytes % (auto) 6.6 %; Mean Corpuscular Hemoglobin 27.5 pg (25.0-34.0); Mean Corpuscular Hgb Conc 30.7 g/dL (32.0-36.0); Mean Corpuscular Volume 89.4 fL (80.0-100.0); Monocytes # (auto) 0.46 K/uL (0.11-0.59); Monocytes % (auto) 5.5 %; Neutrophils # (auto) 7.16 K/uL (1.40-6.50); Neutrophils % (auto) 85.8 %; Ovalocytes 1+; Platelet Count 135 K/uL (130-400); Polychromasia 1+; RDW Coefficient of Variation 18.7 % (11.5-14.5); RDW Standard Deviation 54.6 fL (36.4-46.3); Tear Drop Cells 1+
[2022-05-19] MEDS: TUBE FEEDING WATER FLUSH PEG SCH ×2 (14:14→20:54)
[2022-05-19] MEDS: FIBERSOURCE HN 1.2 CAL 1000 ML BAG GT SCH (15:30)
--- NOTE | 2022-05-19 17:03 | Hospitalist Progress Note ---
Date of Service May 19, 2022 Assessment & Plan (1) Interstitial lung disease: (2) Pneumonia: (3) Weakness: (4) Pulmonary hypertension: (5) Hypotension: (6) CHF (congestive heart failure): (7) Dermatomyositis: (8) History of seizures: (9) History of CVA (cerebrovascular accident): Plan 71 y/o presents with EMS with hypotension and persistent cough/congestion. Complex medical history including ILD, pHTN, Dermatomyositis, H/O seizures and CVA. Mg 1.5; replaced. Normotensive s/p 1 LNSB, CXR pleural effusions superimposed PNA vs aspiration pneumonitis, Chest CT negative for PE. See HPI for further details. ILD: PNA: Weakness: -Follows with Pulm in [place]; Dr. Portillo. -No Leukocytosis; WBC 9.77 -CXR pleural effusion with questionable superimposed pneumonia vs aspiration pneumonitis; CXR in AM -Chest CT: negative for PE. Mild bronchiectasis with stable peripheral interstitial thickening and bibasilar airspace opacities -1 dose IV Zosyn in ED; Started Ceftriaxone + Doxy -Blood cultures pending; adjust abx as necessary -Lactate 1.9 -Mg+ 11.5--> 1G; recheck in AM -Procalcitonin negative -Flutter Valve ordered QID -Mucinex ordered -Last PFT's 2016; FEV1 83 -Consult Pulmonary for evaluation of ILD and pleural effusions; audible crackles; suspect mix of ILD and possible CHF exacerbation -Waiting for inpatient rehab Dysphagia Due to disease process EGD showed esophagitis S/P peg tube placement on 05/19 Case discussed with GI that recommended to continue IV PPI drip for another day OK to use peg tube for feeding Elevated Troponin: -in ED 397; no overt ischemia noted on EKG -Denies any chest pain Echo showed no LV wall motion abnormality. Ejection fraction 55 to 60% Resolved Pulmonary HTN: CHF: -CXR pleural effusion with questionable superimposed pneumonia vs aspiration pneumonitis; CXR in AM -Takes Aldactone and Lasix; hold for now due to hypotension on arrival. -Continue monitor closely Dermatomyositis: -Follows with Rheumatology; Dr. Moncada. Will reach out for recommendations -Prescribed CellCept; not compliant per pt and daughter -CK level 1800; was 700 in 02/16 -Case Discussed with Dr. Wilburn admission that recommended Methylprednisone 60 mg IV daily x3 days; then switch to Prednisone 20 mg PO daily until discharge; notify Rheumatology upon discharge and he will taper as necessary. -Dr. Hobson suggests reiterating importance of taking medications with compliance to avoid decline -Continue Prednisone 20mg daily H/O seizures: -On Keppra; continue H/O CVA: -2020 without residual effects -On Dual antiplatelet therapy (ASA and Plavix) + statin; continue GERD: -Takes TUMS; was on Protonix but DC due to interfering with CellCept Disposition: PCP: Dr. Hatfield Code Status: Full Code VTE Prophylaxis: On Lovenox Admission and Anticipated Discharge Date Admission Date: May 08, 2022 Subjective Pt was seen and examined for follow up Lying in bed with no acute distress Patient said that she feels okay Denies any chest pain, palpitation, dizziness, shortness of breath. Review of Systems Review of Systems: All systems reviewed & are unremarkable except as noted in Subjective Physical Exam Physical Exam: General- No acute distress Head- atraumatic Eyes- PERRL, EOMI, ENT- oropharynx clear Neck- supple, no JVD Lungs- Diminished BS Heart- regular rhythm; no murmur Abdomen- normal bowel sounds, soft, nontender Extremities- no calf tenderness Neuro- alert, oriented x 3; PERRL, EOMI; no facial palsy; no dysarthria Skin- warm & dry Results & Data Results & Data Vital Signs (Past 12 Hours) Vital Signs Temp Pulse Pulse Pulse Resp BP BP 05/19/22 16:03 36.5 C 65 18 148/71 H 05/19/22 11:35 36.5 C 76 17 144/87 H 05/19/22 07:32 72 05/19/22 06:36 36.4 C L 74 18 113/55 L Pulse Ox O2 Del Method 05/19/22 16:03 100 Room Air 05/19/22 11:35 97 Room Air 05/19/22 07:32 05/19/22 06:36 97 Room Air (6) CHF (congestive heart failure) Heart failure chronicity: acute Heart failure type: unspecified Qualified Code(s): I50.9 - Heart failure, unspecified
[2022-05-20] MEDS: TUBE FEEDING WATER FLUSH PEG SCH ×5 (01:39→21:59)
[2022-05-20] MEDS: PANTOprazole 40 MG in DEXTROSE 5% 100 ML IV SCH ×4 (04:23→22:08)
[2022-05-20] MEDS: ENOXAPARIN INJ 40 MG/0.4 ML SYR SQ SCH (08:17)
[2022-05-20] MEDS: predniSONE 20 MG TAB NG SCH (08:21)
[2022-05-20] MEDS: levETIRAcetam 500 MG in 0.9 % SODIUM CHLORIDE 100 ML IV SCH (08:28)
--- NOTE | 2022-05-20 18:02 | Hospitalist Progress Note ---
Date of Service May 20, 2022 Assessment & Plan (1) Interstitial lung disease: (2) Pneumonia: (3) Weakness: (4) Pulmonary hypertension: (5) Hypotension: (6) CHF (congestive heart failure): (7) Dermatomyositis: (8) History of seizures: (9) History of CVA (cerebrovascular accident): Plan 71 y/o presents with EMS with hypotension and persistent cough/congestion. Complex medical history including ILD, pHTN, Dermatomyositis, H/O seizures and CVA. Mg 1.5; replaced. Normotensive s/p 1 LNSB, CXR pleural effusions superimposed PNA vs aspiration pneumonitis, Chest CT negative for PE. See HPI for further details. ILD: PNA: Weakness: -Follows with Pulm in [place]; Dr. Portillo. -No Leukocytosis; WBC 9.77 -CXR pleural effusion with questionable superimposed pneumonia vs aspiration pneumonitis; CXR in AM -Chest CT: negative for PE. Mild bronchiectasis with stable peripheral interstitial thickening and bibasilar airspace opacities -1 dose IV Zosyn in ED; Started Ceftriaxone + Doxy -Blood cultures pending; adjust abx as necessary -Lactate 1.9 -Mg+ 11.5--> 1G; recheck in AM -Procalcitonin negative -Flutter Valve ordered QID -Mucinex ordered -Last PFT's 2016; FEV1 83 -Consult Pulmonary for evaluation of ILD and pleural effusions; audible crackles; suspect mix of ILD and possible CHF exacerbation -Waiting for inpatient rehab Dysphagia Due to disease process EGD showed esophagitis S/P peg tube placement on 05/19 Case discussed with GI that recommended to continue IV PPI drip for another day OK to use peg tube for feeding Elevated Troponin: -in ED 397; no overt ischemia noted on EKG -Denies any chest pain Echo showed no LV wall motion abnormality. Ejection fraction 55 to 60% Resolved Pulmonary HTN: CHF: -CXR pleural effusion with questionable superimposed pneumonia vs aspiration pneumonitis; CXR in AM -Takes Aldactone and Lasix; hold for now due to hypotension on arrival. -Continue monitor closely Dermatomyositis: -Follows with Rheumatology; Dr. Moncada. Will reach out for recommendations -Prescribed CellCept; not compliant per pt and daughter -CK level 1800; was 700 in 02/16 -Case Discussed with Dr. Wilburn admission that recommended Methylprednisone 60 mg IV daily x3 days; then switch to Prednisone 20 mg PO daily until discharge; notify Rheumatology upon discharge and he will taper as necessary. -Dr. Hobson suggests reiterating importance of taking medications with compliance to avoid decline -Continue Prednisone 20mg daily H/O seizures: -On Keppra; continue H/O CVA: -2020 without residual effects -On Dual antiplatelet therapy (ASA and Plavix) + statin; continue GERD: -Takes TUMS; was on Protonix but DC due to interfering with CellCept Disposition: PCP: Dr. Hatfeild Code Status: Full Code VTE Prophylaxis: On Lovenox Admission and Anticipated Discharge Date Admission Date: May 08, 2022 Subjective Pt was seen and examined for follow up Lying in bed with no acute distress Denies any chest pain, palpitation, dizziness, shortness of breath. Review of Systems Review of Systems: All systems reviewed & are unremarkable except as noted in Subjective Physical Exam Physical Exam: General- No acute distress Head- atraumatic Eyes- PERRL, EOMI, ENT- oropharynx clear Neck- supple, no JVD Lungs- Diminished BS Heart- regular rhythm; no murmur Abdomen- normal bowel sounds, soft, nontender Extremities- no calf tenderness Neuro- alert, oriented x 3; PERRL, EOMI; no facial palsy; no dysarthria Skin- warm & dry Results & Data Results & Data Vital Signs (Past 12 Hours) Vital Signs Temp Pulse Pulse Resp BP Pulse Ox O2 Del Method 05/20/22 17:57 73 05/20/22 15:48 36.7 C 62 18 149/72 H 96 Room Air 05/20/22 11:43 36.4 C L 101 H 18 126/70 96 Room Air 05/20/22 08:00 Room Air 05/20/22 07:31 36.5 C 72 17 122/53 L 97 Room Air (6) CHF (congestive heart failure) Heart failure chronicity: acute Heart failure type: unspecified Qualified Code(s): I50.9 - Heart failure, unspecified
[2022-05-20] MEDS ORDERED: POLYETHYLENE (MIRALAX) 17 GM PACK PEG PRN (18:08)
[2022-05-20] MEDS: GABAPENTIN 250 MG/5 ML 470 ML BTL PEG SCH (22:09)
[2022-05-21] MEDS: TUBE FEEDING WATER FLUSH PEG SCH ×4 (00:16→21:04)
[2022-05-21] MEDS: FIBERSOURCE HN 1.2 CAL 1000 ML BAG GT SCH (00:16)
[2022-05-21] MEDS: PANTOprazole 40 MG in DEXTROSE 5% 100 ML IV SCH ×5 (03:03→22:51)
[2022-05-21] MEDS: ENOXAPARIN INJ 40 MG/0.4 ML SYR SQ SCH (08:18)
[2022-05-21] MEDS: GABAPENTIN 250 MG/5 ML 470 ML BTL PEG SCH ×3 (08:19→21:04)
[2022-05-21] MEDS: predniSONE 20 MG TAB NG SCH (08:19)
--- NOTE | 2022-05-21 14:57 | Hospitalist Progress Note ---
Date of Service May 21, 2022 Assessment & Plan (1) Interstitial lung disease: (2) Pneumonia: (3) Weakness: (4) Pulmonary hypertension: (5) Hypotension: (6) CHF (congestive heart failure): (7) Dermatomyositis: (8) History of seizures: (9) History of CVA (cerebrovascular accident): Plan 71 y/o presents with EMS with hypotension and persistent cough/congestion. Complex medical history including ILD, pHTN, Dermatomyositis, H/O seizures and CVA. Mg 1.5; replaced. Normotensive s/p 1 LNSB, CXR pleural effusions superimposed PNA vs aspiration pneumonitis, Chest CT negative for PE. See HPI for further details. ILD: PNA: Weakness: -Follows with Pulm in [place]; Dr. Portillo. -No Leukocytosis; WBC 9.77 -CXR pleural effusion with questionable superimposed pneumonia vs aspiration pneumonitis; CXR in AM -Chest CT: negative for PE. Mild bronchiectasis with stable peripheral interstitial thickening and bibasilar airspace opacities -1 dose IV Zosyn in ED; Started Ceftriaxone + Doxy -Blood cultures pending; adjust abx as necessary -Lactate 1.9 -Mg+ 11.5--> 1G; recheck in AM -Procalcitonin negative -Flutter Valve ordered QID -Mucinex ordered -Last PFT's 2016; FEV1 83 -Consult Pulmonary for evaluation of ILD and pleural effusions; audible crackles; suspect mix of ILD and possible CHF exacerbation -Waiting for inpatient rehab Dysphagia Due to disease process EGD showed esophagitis S/P peg tube placement on 05/19 Case discussed with GI that recommended to continue IV PPI drip for another day OK to use peg tube for feeding Elevated Troponin: -in ED 397; no overt ischemia noted on EKG -Denies any chest pain Echo showed no LV wall motion abnormality. Ejection fraction 55 to 60% Resolved Pulmonary HTN: CHF: -CXR pleural effusion with questionable superimposed pneumonia vs aspiration pneumonitis; CXR in AM -Takes Aldactone and Lasix; hold for now due to hypotension on arrival. -Continue monitor closely Dermatomyositis: -Follows with Rheumatology; Dr. Moncada. Will reach out for recommendations -Prescribed CellCept; not compliant per pt and daughter -CK level 1800; was 700 in 02/16 -Case Discussed with Dr. Wilburn admission that recommended Methylprednisone 60 mg IV daily x3 days; then switch to Prednisone 20 mg PO daily until discharge; notify Rheumatology upon discharge and he will taper as necessary. -Dr. Hobson suggests reiterating importance of taking medications with compliance to avoid decline -Continue Prednisone 20mg daily H/O seizures: -On Keppra; continue H/O CVA: -2020 without residual effects -On Dual antiplatelet therapy (ASA and Plavix) + statin; continue GERD: -Takes TUMS; was on Protonix but DC due to interfering with CellCept Disposition: PCP: Dr. Hatfield Code Status: Full Code VTE Prophylaxis: On Lovenox Admission and Anticipated Discharge Date Admission Date: May 08, 2022 Subjective Pt was seen and examined for follow up Lying in bed with no acute distress Denies any chest pain, palpitation, dizziness, shortness of breath. Review of Systems Review of Systems: All systems reviewed & are unremarkable except as noted in Subjective Physical Exam Physical Exam: General- No acute distress Head- atraumatic Eyes- PERRL, EOMI, ENT- oropharynx clear Neck- supple, no JVD Lungs- Diminished BS Heart- regular rhythm; no murmur Abdomen- normal bowel sounds, soft, nontender Extremities- no calf tenderness Neuro- alert, oriented x 3; PERRL, EOMI; no facial palsy; no dysarthria Skin- warm & dry Results & Data Results & Data Vital Signs (Past 12 Hours) Vital Signs Temp Pulse Resp BP BP Pulse Ox O2 Del Method 05/21/22 11:12 36.6 C 62 20 138/71 94 Room Air 05/21/22 08:00 Room Air 05/21/22 08:04 36.7 C 86 20 121/65 97 Room Air 05/21/22 04:02 36.7 C 91 H 20 168/81 H 99 Room Air (6) CHF (congestive heart failure) Heart failure chronicity: acute Heart failure type: unspecified Qualified Code(s): I50.9 - Heart failure, unspecified
[2022-05-21] MEDS: MYCOPHENOLATE SUSP 200 MG/1 ML PEG SCH (21:05)
[2022-05-22] MEDS: MYCOPHENOLATE SUSP 200 MG/1 ML PEG SCH ×3 (01:23→20:34)
[2022-05-22] MEDS: TUBE FEEDING WATER FLUSH PEG SCH ×4 (03:51→20:34)
[2022-05-22] MEDS: PANTOprazole 40 MG in DEXTROSE 5% 100 ML IV SCH ×5 (05:55→20:34)
[2022-05-22] MEDS: predniSONE 20 MG TAB NG SCH (08:45)
[2022-05-22] MEDS: ATORVASTATIN 40 MG TAB PEG SCH (08:45)
[2022-05-22] MEDS: ENOXAPARIN INJ 40 MG/0.4 ML SYR SQ SCH (08:45)
[2022-05-22] MEDS: CLOPIDOGREL BISULFATE 75 MG TAB PEG SCH (08:46)
[2022-05-22] MEDS: GABAPENTIN 250 MG/5 ML 470 ML BTL PEG SCH ×3 (08:47→20:34)
[2022-05-22] MEDS: FIBERSOURCE HN 1.2 CAL 1000 ML BAG GT SCH (14:04)
--- NOTE | 2022-05-22 21:56 | Hospitalist Progress Note ---
Date of Service May 22, 2022 Assessment & Plan (1) Interstitial lung disease: (2) Pneumonia: (3) Weakness: (4) Pulmonary hypertension: (5) Hypotension: (6) CHF (congestive heart failure): (7) Dermatomyositis: (8) History of seizures: (9) History of CVA (cerebrovascular accident): Plan 71 y/o presents with EMS with hypotension and persistent cough/congestion. Complex medical history including ILD, pHTN, Dermatomyositis, H/O seizures and CVA. Mg 1.5; replaced. Normotensive s/p 1 LNSB, CXR pleural effusions superimposed PNA vs aspiration pneumonitis, Chest CT negative for PE. See HPI for further details. ILD: PNA: Weakness: -Follows with Pulm in [place]; Dr. Portillo. -No Leukocytosis; WBC 9.77 -CXR pleural effusion with questionable superimposed pneumonia vs aspiration pneumonitis; CXR in AM -Chest CT: negative for PE. Mild bronchiectasis with stable peripheral interstitial thickening and bibasilar airspace opacities -1 dose IV Zosyn in ED; Started Ceftriaxone + Doxy -Blood cultures pending; adjust abx as necessary -Lactate 1.9 -Mg+ 11.5--> 1G; recheck in AM -Procalcitonin negative -Flutter Valve ordered QID -Mucinex ordered -Last PFT's 2016; FEV1 83 -Consult Pulmonary for evaluation of ILD and pleural effusions; audible crackles; suspect mix of ILD and possible CHF exacerbation -Waiting for inpatient rehab Dysphagia Due to disease process EGD showed esophagitis S/P peg tube placement on 05/19 Case discussed with GI that recommended to continue IV PPI drip for another day OK to use peg tube for feeding Elevated Troponin: -in ED 397; no overt ischemia noted on EKG -Denies any chest pain Echo showed no LV wall motion abnormality. Ejection fraction 55 to 60% Resolved Pulmonary HTN: CHF: -CXR pleural effusion with questionable superimposed pneumonia vs aspiration pneumonitis; CXR in AM -Takes Aldactone and Lasix; hold for now due to hypotension on arrival. -Continue monitor closely Dermatomyositis: -Follows with Rheumatology; Dr. Moncada. Will reach out for recommendations -Prescribed CellCept; not compliant per pt and daughter -CK level 1800; was 700 in 02/16 -Case Discussed with Dr. Wilburn admission that recommended Methylprednisone 60 mg IV daily x3 days; then switch to Prednisone 20 mg PO daily until discharge; notify Rheumatology upon discharge and he will taper as necessary. -Dr. Hobson suggests reiterating importance of taking medications with compliance to avoid decline -Continue Prednisone 20mg daily H/O seizures: -On Keppra; continue H/O CVA: -2020 without residual effects -On Dual antiplatelet therapy (ASA and Plavix) + statin; continue GERD: -Takes TUMS; was on Protonix but DC due to interfering with CellCept Disposition: [place] to discharge tomorrow Code Status: Full Code VTE Prophylaxis: On Lovenox Admission and Anticipated Discharge Date Admission Date: May 08, 2022 Subjective Pt was seen and examined for follow up Lying in bed with no acute distress Denies any chest pain, palpitation, dizziness, shortness of breath. Review of Systems Review of Systems: All systems reviewed & are unremarkable except as noted in Subjective Physical Exam Physical Exam: General- No acute distress Head- atraumatic Eyes- PERRL, EOMI, ENT- oropharynx clear Neck- supple, no JVD Lungs- Diminished BS Heart- regular rhythm; no murmur Abdomen- normal bowel sounds, soft, nontender Extremities- no calf tenderness Neuro- alert, oriented x 3; PERRL, EOMI; no facial palsy; no dysarthria Skin- warm & dry Results & Data Results & Data Vital Signs (Past 12 Hours) Vital Signs Temp Pulse Resp BP BP Pulse Ox O2 Del Method 05/22/22 15:09 36.7 C 81 20 104/57 L 98 Room Air 05/22/22 11:07 36.3 C L 86 20 133/73 100 Room Air (6) CHF (congestive heart failure) Heart failure chronicity: acute Heart failure type: unspecified Qualified Code(s): I50.9 - Heart failure, unspecified
[2022-05-23] MEDS: TUBE FEEDING WATER FLUSH PEG SCH ×2 (02:02→08:36)
[2022-05-23] MEDS: PANTOprazole 40 MG in DEXTROSE 5% 100 ML IV SCH ×3 (02:02→10:39)
[2022-05-23] MEDS: CLOPIDOGREL BISULFATE 75 MG TAB PEG SCH (08:34)
[2022-05-23] MEDS: ATORVASTATIN 40 MG TAB PEG SCH (08:34)
[2022-05-23] MEDS: ENOXAPARIN INJ 40 MG/0.4 ML SYR SQ SCH (08:34)
[2022-05-23] MEDS: GABAPENTIN 250 MG/5 ML 470 ML BTL PEG SCH (08:36)
[2022-05-23] MEDS: MYCOPHENOLATE SUSP 200 MG/1 ML PEG SCH (08:36)
[2022-05-23] MEDS: predniSONE 20 MG TAB NG SCH (09:10)
--- NOTE | 2022-05-23 12:33 | Discharge Summary ---
Date of Service May 23, 2022 Admission HPI Per Admitting Provider Ms. Chowdary is a 71-year-old female that presents to the [facility] today via EMS for increasing shortness of breath, weakness and persistent cough and congestion. In ED she was found to be hypotensive SBP 70's with response 115-120 (MAP 70) after 1 L NSB. Chest x-ray revealed pleural effusions with questionable superimposed pneumonia versus aspiration pneumonitis. Chest CT performed to rule out PE; negative. No leukocytosis WBC 9.77, no tachypnea, no tachycardia; does not appear to meet sepsis criteria at this time. Lactic acid 1.9, procalcitonin negative, mag 1.5; repleted with 1 g. Troponin noted to be 397 however do not suspect ACS rather ischemic demand related to her history of pulmonary hypertension. EKG did not reveal any overt ischemia. Reports her cough to be worsening over the past 3 or 4 days and is productive, white and thick. As noted patient has a complex medical history significant for pulmonary hypertension, CHF, dermatomyositis, ILD, Raynaud's disease, history of CVA, history of seizures, history of tobacco use, polyneuropathy. Suzy lives alone at home and has been noted to have progressive weakness over the past few months and does admit to missing IVIG treatment and did not undergo treatment in March; next IVIG scheduled for May 22. Patient most recent admission 10/14/2021 to 10/16/2021 for similar symptoms. After that admission patient did proceed to [facility] for acute rehabilitation. Patient follows with Dr. Rodriguez. with pulmonary in [place] next rheumatology appointment scheduled 11/18. Next hematology oncology appointment scheduled for the end of the month 05/22. Follows with cardiology for CHF. Patient quit smoking 2016; prior to that smoked three-quarter pack per day x40 years. Patient denies alcohol use or recreational drug use. Currently patient denies fevers, headache, dizziness, abdominal pain, chest pain, palpitations, visual or auditory changes, recent falls or trauma. She reports normal bowel and bladder function patient reports that she is eating and drinking appropriately however has a hard time going from sitting to standing due to her weakness. She has reported that she is in the process of trying to get a lift chair to assist with this. She has a caregiver come into the home 3 times a week for 3 hours each day to assist with her ADLs including doing laundry and meals. Consult Pulmonary for evaluation of ILD and pleural effusions; audible crackles posterior RLL and LML. Her last documented PFTs were 2017 FEV1 83. PT/OT orders placed; discussed possible placement with pt daughter who aggress with consideration due to her noncompliance and continuation of her weakness. Patient does intermittently use a walker for ambulation. Patient will be admitted for further evaluation and management. Please see A/P for further details. Discharge Exam General- No acute distress Head- atraumatic Eyes- PERRL, EOMI, ENT- oropharynx clear Neck- supple, no JVD Lungs- Diminished BS Heart- regular rhythm; no murmur Abdomen- normal bowel sounds, soft, nontender Extremities- no calf tenderness Neuro- alert, oriented x 3; PERRL, EOMI; no facial palsy; no dysarthria Skin- warm & dry Discharge Data Allergies Allergy/AdvReac Type Severity Reaction Status Date / Time No Known Allergies Allergy Verified 05/18/22 10:31 Consultations 05/08/22 12:02 ED Decision to Admit Stat 05/08/22 13:41 Consult Pulmonology Routine 05/13/22 12:00 Consult Gastroenterology Routine Procedures Performed Operation Date: 05/18/22 16:30 Actual Procedures p EGD Gastric Tube Placement - Cathryn Khan, Ordered Studies 05/08/22 11:17 CT angio chest PE protocol Stat 05/09/22 13:00 FL video swallow Routine 05/11/22 13:00 FL video swallow Routine 05/12/22 22:28 CT head/brain wo con Stat Hospital Course (1) Interstitial lung disease: (2) Pneumonia: (3) Weakness: (4) Pulmonary hypertension: (5) Hypotension: (6) CHF (congestive heart failure): (7) Dermatomyositis: (8) History of seizures: (9) History of CVA (cerebrovascular accident): Plan 71 y/o presents with EMS with hypotension and persistent cough/congestion. Complex medical history including ILD, pHTN, Dermatomyositis, H/O seizures and CVA. Mg 1.5; replaced. Normotensive s/p 1 LNSB, CXR pleural effusions superimposed PNA vs aspiration pneumonitis, Chest CT negative for PE. See HPI for further details. ILD: PNA: Weakness: -Follows with Pulm in [place]; Dr. Portillo. -No Leukocytosis; WBC 9.77 -CXR pleural effusion with questionable superimposed pneumonia vs aspiration pneumonitis; CXR in AM -Chest CT: negative for PE. Mild bronchiectasis with stable peripheral interstitial thickening and bibasilar airspace opacities -1 dose IV Zosyn in ED; Started Ceftriaxone + Doxy -Blood cultures pending; adjust abx as necessary -Lactate 1.9 -Mg+ 11.5--> 1G; recheck in AM -Procalcitonin negative -Flutter Valve ordered QID -Mucinex ordered -Last PFT's 2016; FEV1 83 -Consult Pulmonary for evaluation of ILD and pleural effusions; audible crackles; suspect mix of ILD and possible CHF exacerbation -Waiting for inpatient rehab Dysphagia Due to disease process EGD showed esophagitis S/P peg tube placement on 05/19 Case discussed with GI that recommended to continue IV PPI drip for another day OK to use peg tube for feeding Elevated Troponin: -in ED 397; no overt ischemia noted on EKG -Denies any chest pain Echo showed no LV wall motion abnormality. Ejection fraction 55 to 60% Resolved Pulmonary HTN: CHF: -CXR pleural effusion with questionable superimposed pneumonia vs aspiration pneumonitis; CXR in AM -Takes Aldactone and Lasix; hold for now due to hypotension on arrival. -Continue monitor closely Dermatomyositis: -Follows with Rheumatology; Dr. Moncada. Will reach out for recommendations -Prescribed CellCept; not compliant per pt and daughter -CK level 1800; was 700 in 02/16 -Case Discussed with Dr. Moncadaon admission that recommended Methylprednisone 60 mg IV daily x3 days; then switch to Prednisone 20 mg PO daily until discharge; notify Rheumatology upon discharge and he will taper as necessary. -Dr. Hobson suggests reiterating importance of taking medications with compliance to avoid decline -Continue Prednisone 20mg daily H/O seizures: -On Keppra; continue H/O CVA: -2020 without residual effects -On Dual antiplatelet therapy (ASA and Plavix) + statin; continue GERD: -Takes TUMS; was on Protonix but DC due to interfering with CellCept Disposition: [place] to discharge tomorrow Code Status: Full Code VTE Prophylaxis: On Lovenox Discharge Plan Discharge Items Patient Disposition: Transfer Inpatient Rehab Fac Reason For Visit: SOB/WEAKNESS Discharge Diagnosis: (1) Interstitial lung disease: (2) Pneumonia: (3) Weakness: (4) Pulmonary hypertension: (5) Hypotension: (6) CHF (congestive heart failure): (7) Dermatomyositis: (8) History of seizures: (9) History of CVA (cerebrovascular accident): (10) Dysphagia Activity: Resume your previous activity Non-emergency contact: Primary Care Provider and Specialist Call non-emergency contact if: you have any medication questions and your symptoms worsen Follow-up/Referrals: Ryan Hatfield MD [Outside Practitioners] - Diet: Nothing by Mouth and Other - See Diet Comment Addtl Attending Provider Instructions: Follow up with your primary care provider once discharge from [place] care Follow up with rheumatology Dr. Hobson Continue physical and occupational therapy Continue speech evaluation Continue peg tube feeding with fibersource 9 Continue 100ml free water flushes via Peg tube q6hr Continue using Peg tube to administer all your oral medications Fall and aspiration precaution Continue seizure precaution Check CBC in 1 week to monitor hemoglobin BMP in 1 week to monitor your electrolytes and renal function Pending Studies at Discharge: No Stand-Alone Forms: [facility] [employer] Skilled Items Patient informed of condition?: Yes DNR: No Discharge Level of Care: Acute rehab Communicable Disease: No Discharge Prognosis: Stable Lines: None Urinary Catheter: No Medications and DC Order Prescriptions: New prednisone 20 mg Tablet 20 mg NG DAILY Qty: 30 0RF Continued doxepin 50 mg capsule 50 - 150 mg PO HS PRN (Reason: Sleep) mycophenolate mofetil 500 mg tablet 1,000 mg PO BID gabapentin 100 mg capsule 100 mg PO TID atorvastatin 40 mg Tablet 40 mg PO QAM Qty: 30 0RF aspirin 81 mg Tablet,Delayed Release (Dr/Ec) 81 mg PO QAM Qty: 90 1RF levetiracetam [Keppra] 500 mg Tablet 500 mg PO BID Qty: 60 0RF clopidogrel [Plavix] 75 mg tablet 75 mg PO DAILY Qty: 30 0RF spironolactone [Aldactone] 25 mg Tablet 25 mg PO DAILY furosemide [Lasix] 20 mg tablet 20 mg 3XWK potassium 20 mg Tablet,Chewable 10 mg PO 3XWK Discharge Orders: Discharge Order (Routine); Ordered 05/23/22 Ordered By: Ji Ashley/Other Patient Handouts: Understanding Dysphagia, Dysphagia Aspiration, ED Dermatomyositis Admission Data Admit Date/Time: 05/08/22 12:28 Attending Provider: Ji Ward Admit Provider: Ji Ward Primary Care Provider: Ji Ward Other Providers: Ryan Hatfield ; Debora Gil I. ; [place] ; Ji Ward ; Isaias Kimbrough ; Viraj Jules Other Interventions: Discharge Summary Assessment (RN) Last Done: 05/23/22 09:58
== END 2022-05-23 13:20 | DRG 197 ==
LOC: ED 09:23 → SUATTDRO 12:28 → 2S 12:28 → SUPCPDRO 12:28 → 2S 14:52 → 3E 05-11 16:57 → 2S 05-12 22:25 → 2N 05-20 17:36

== ENCOUNTER 2022-05-27 09:35 | Inpatient (IN) ==
[2022-05-27] MEDS ORDERED: ONDANSETRON INJ 2 MG/ML 2 ML VIAL IV STA (09:47)
[2022-05-27] MEDS ORDERED: SODIUM CHLORIDE 0.9% 1000ML 2,000 ML IV ONE (09:47)
[2022-05-27] MEDS ORDERED: PANTOprazole 80 MG in DEXTROSE 5% 100 ML IV ONE (09:47)
[2022-05-27] MEDS ORDERED: FAMOTIDINE 20MG IV PUSH 20 MG/5 ML SYR IV STA (09:47)
[2022-05-27] MEDS ORDERED: PANTOprazole 80 MG in DEXTROSE 5% 100 ML IV STA (09:47)
[2022-05-27] MEDS ORDERED: SODIUM CHLORIDE 0.9% 250 ML IV PRN ×2 (09:47→11:36)
--- NOTE | 2022-05-27 09:55 | Emergency Department Note ---
Impression & Plan Hypotension, Acute GI bleeding, Anemia, Hematemesis, Hypocalcemia ED Provider Note NAME: DESHAUN MUELLER AGE: 72 SEX: F : 1950 ARRIVES VIA: Ambulance INFORMANT: [Patient][ems, nursing] ED PROVIDER(S): [Ziyad To MD] CHIEF COMPLAINT: GI bleed HISTORY OF PRESENT ILLNESS: The patient is a 72-year-old female who was discharged from our hospital about 4 days ago. She was in for a prolonged timeframe. During the stay, she had a PEG tube placed. When she left the hospital, she was continued on prednisone. She is on aspirin and Plavix. As per EMS, the patient has been vomiting blood and there has been bright red blood per rectum. Blood pressure was low. The patient is a DNR per her paperwork. She would consider blood products though if needed. She does not want CPR or intubation. The patient does not have any pain at the present. She feels weak though. She does not necessarily feel short of breath. Of note, an IV was not established in route, no medications administered in route. PMHx/PSHx: See Below SOCIAL HISTORY: See Below. PHYSICAL EXAM: GENERAL: Patient is in no acute distress. Lying supine on the stretcher. There is some dried bright red blood on her clothing and face. HEENT: No acute trauma, normocephalic atraumatic, mucous membranes moist, no nasal congestion. NECK: No stridor, no adenopathy, no meningismus, trachea is midline. LUNGS: Clear to auscultation when listening anterior, breath sounds equal, no respiratory distress. HEART: 2/6 systolic murmur, mildly tachycardic, regular rhythm. ABDOMEN: Soft, mildly diffusely tender, bowel sounds positive, no peritonitis. There is a PEG tube in the left upper quadrant. EXTREMITIES: No cyanosis or edema, full range of motion of all the joints without pain or difficulty, no signs for acute trauma. NEUROLOGIC: Moving all extremities, awake, seems slightly confused. SKIN: No rash, no jaundice, no diaphoresis. Pale. DIFFERENTIAL DIAGNOSIS: Upper GI bleed, lower GI bleed, anemia, coagulopathy, dehydration, electrolyte imbalance, infection, among others. EMERGENCY DEPARTMENT COURSE/PROCEDURES: Prior/Outside records reviewed: Recent discharge summary. ECG per my interpretation: Indication was GI bleed. The ECG shows a sinus tachycardia with a rate of 104. There is some subtle T wave inversion in the high lateral leads. There is no ST elevation, no PVCs. The QTc is 481. Continuous Cardiac Monitoring per my interpretation: An order was placed for continuous cardiac monitoring. The monitor shows a rate of 115 with sinus tachycardia. Critical Care Note: I have personally spent 52 minutes of critical care time in the direct management of this patient. This includes bedside care, interpretation of diagnostic studies, and testing, discussion with consultants, patient, and family members, and other required patient management activities. This 52 minutes is in excess of all separately billable procedures. MEDICAL DECISION MAKING: There is a moderate leukocytosis, this could be consistent with infection or the stress of her current situation. Hemoglobin was quite low at 5.1. There was a normal platelet count. INR elevated slightly at 1.2. No renal failure. The BUN was elevated consistent with possible upper GI bleeding. Calcium is low at 7.8. There were some subtle liver enzyme elevations although, the bilirubin was normal. No evidence for pancreatitis. ECG showed a sinus tachycardia, no o bvious ST elevation. Cardiac enzyme testing x1 was slightly elevated. This elevation could be from cardiac injury or potentially just mismatch from her hypotension and anemia. Urinalysis did not show obvious infection. COVID test returned negative. Chest film showed some chronic change, no CHF or pneumonia per my review. Abdominal and pelvis CT did not show any source for the bleeding, there was no bowel obstruction, no acute infectious process by CT imaging. On exam, the patient appeared pale, she was hypotensive. There was dried blood on her face and some blood noted in her underwear. The patient was aggressively managed. I did talk with her about options. She did consent to receiving blood, she is to remain a DNR though. The patient was given IV saline, 2 L. She received IV Protonix, IV Zofran, IV Pepcid. She was given IV calcium. Patient's blood pressure did improve with the IV fluids. I did order for 2 units of packed red blood cells to be transfused. The patient is currently doing fairly well considering. I did speak with the patient and case management, the on-call hospitalist was consulted. DISPOSITION: Patient's findings and presentation warrant a hospital stay. Past Med/Surg History Medical History Acute dyspnea Acute metabolic encephalopathy Acute respiratory failure with hypoxia Anemia Aspiration pneumonia DVT prophylaxis Elevated troponin History of CVA (cerebrovascular accident) History of seizures Pneumonia Pulmonary hypertension Shortness of breath UTI (urinary tract infection) Weakness Surgical History History of hysterectomy Family History Other Cancer Heart disease Social History Smoking Status: Former smoker Tobacco Type: Cigarettes Smoking End Date: 2016, 30 pack years; Second Hand Exposure: No; Hx Alcohol Use: No Hx Substance Use: No Preferred Language: Vietnamese Communication Ability: Effective Communication Ability Comment: currently having some aphasia Trimming Assembler Required: No Beliefs That Will Affect Care: None marital status: Single Current Living Situation: Alone Current Living Situation Comment: At home byself recently enrolled in home health Other Information That Helps Us Care for You: No Feels Safe at Home: Yes Safety Concerns: Feels Safe At This Time Assistive Devices: Denture - Upper, Denture - Lower and Walker Allergies Allergies Allergy/AdvReac Type Severity Reaction Status Date / Time No Known Allergies Allergy Verified 05/18/22 10:31 Home Meds Home Medications Medication Instructions Recorded Confirmed doxepin 50 mg capsule 50 - 150 mg PO HS PRN Sleep 12/03/18 05/27/22 gabapentin 100 mg capsule 100 mg PO TID 12/03/18 05/27/22 mycophenolate mofetil 500 mg tablet 1,000 mg PO BID 12/03/18 05/27/22 furosemide 20 mg tablet (Lasix) 20 mg 3XWK 05/08/22 05/27/22 potassium 20 mg chewable tablet 10 mg PO 3XWK 05/08/22 05/27/22 spironolactone 25 mg tablet 25 mg PO DAILY 05/08/22 05/27/22 (Aldactone) pantoprazole 40 mg tablet,delayed 40 mg PO BID 05/27/22 05/27/22 release (Protonix) Previous Rx's Medication Instructions Recorded aspirin 81 mg tablet,delayed 81 mg PO QAM #90 tabs 08/30/20 release atorvastatin 40 mg tablet 40 mg PO QAM #30 tabs 08/30/20 clopidogrel 75 mg tablet (Plavix) 75 mg PO DAILY #30 tabs 08/30/20 levetiracetam 500 mg tablet 500 mg PO BID #60 tabs 08/30/20 (Keppra) nutrition [id number] 1 ea G-tube UD 30 days #30 BTLS 05/23/22 0.05 gram-1.2 kcal/mL tube feed liquid (Fibersource HN) pantoprazole 40 mg tablet,delayed 40 mg PO QAM #30 tabs 05/23/22 release prednisone 20 mg tablet 20 mg NG DAILY #30 tabs 05/23/22 Results & Data (ED) Vital Signs Vital Signs - 24 hr 05/27/22 09:38 05/27/22 09:50 05/27/22 09:46 Temperature 36.8 C Temperature Source Axillary Pulse Rate 105 H 107 H 105 H Pulse Rate [Right Apical] Pulse Rate from SpO2 Sensor Respiratory Rate 18 24 Respiratory Effort / Characteristics Non-Labored Spontaneous Respiratory Depth Normal Respiratory Pattern Regular Blood Pressure 67/29 L Blood Pressure [Left Arm] Blood Pressure Mean 41 Blood Pressure Mean [Left Arm] Blood Pressure Position [Left Arm] Pulse Oximetry 92 Oxygen Delivery Method Room Air Sepsis New/Unexplained Change in Mental Status Yes Sepsis Action Taken by Nursing Physician Notified 05/27/22 09:53 05/27/22 09:55 05/27/22 10:00 Temperature Temperature Source Pulse Rate 105 H 104 H 105 H Pulse Rate [Right Apical] Pulse Rate from SpO2 Sensor Respiratory Rate 29 H 31 H 24 Respiratory Effort / Characteristics Respiratory Depth Respiratory Pattern Blood Pressure 77/48 L 69/43 L 76/38 L Blood Pressure [Left Arm] Blood Pressure Mean 57 51 50 Blood Pressure Mean [Left Arm] Blood Pressure Position [Left Arm] Pulse Oximetry Oxygen Delivery Method Sepsis New/Unexplained Change in Mental Status Sepsis Action Taken by Nursing 05/27/22 10:05 05/27/22 10:15 05/27/22 10:30 Temperature Temperature Source Pulse Rate 111 H 111 H 103 H Pulse Rate [Right Apical] Pulse Rate from SpO2 Sensor Respiratory Rate 22 24 19 Respiratory Effort / Characteristics Respiratory Depth Respiratory Pattern Blood Pressure 71/44 L 133/57 L 118/78 Blood Pressure [Left Arm] Blood Pressure Mean 53 82 91 Blood Pressure Mean [Left Arm] Blood Pressure Position [Left Arm] Pulse Oximetry Oxygen Delivery Method Sepsis New/Unexplained Change in Mental Status Sepsis Action Taken by Nursing 05/27/22 10:35 05/27/22 10:43 05/27/22 10:43 Temperature Temperature Source Pulse Rate 102 H 102 H Pulse Rate [Right Apical] 102 H Pulse Rate from SpO2 Sensor Respiratory Rate 21 20 20 Respiratory Effort / Characteristics Non-Labored Spontaneous Respiratory Depth Normal Respiratory Pattern Regular Blood Pressure 121/55 L Blood Pressure [Left Arm] 99/66 L Blood Pressure Mean 77 Blood Pressure Mean [Left Arm] 77 Blood Pressure Position [Left Arm] Pulse Oximetry 92 92 Oxygen Delivery Method Room Air Room Air Sepsis New/Unexplained Change in Mental Status Sepsis Action Taken by Nursing 05/27/22 10:40 05/27/22 10:45 05/27/22 10:50 Temperature Temperature Source Pulse Rate 110 H 100 H 99 H Pulse Rate [Right Apical] Pulse Rate from SpO2 Sensor 98 H 99 H Respiratory Rate 25 H 22 21 Respiratory Effort / Characteristics Respiratory Depth Respiratory Pattern Blood Pressure 99/66 L 118/53 L 119/55 L Blood Pressure [Left Arm] Blood Pressure Mean 77 74 76 Blood Pressure Mean [Left Arm] Blood Pressure Position [Left Arm] Pulse Oximetry 93 93 Oxygen Delivery Method Room Air Room Air Sepsis New/Unexplained Change in Mental Status Sepsis Action Taken by Nursing 05/27/22 10:55 05/27/22 11:00 05/27/22 11:05 Temperature Temperature Source Pulse Rate 103 H 100 H 108 H Pulse Rate [Right Apical] Pulse Rate from SpO2 Sensor 104 H 100 H 102 H Respiratory Rate 20 20 20 Respiratory Effort / Characteristics Respiratory Depth Respiratory Pattern Blood Pressure 118/55 L 119/55 L 115/59 L Blood Pressure [Left Arm] Blood Pressure Mean 76 76 77 Blood Pressure Mean [Left Arm] Blood Pressure Position [Left Arm] Pulse Oximetry 92 93 94 Oxygen Delivery Method Room Air Room Air Room Air Sepsis New/Unexplained Change in Mental Status Sepsis Action Taken by Nursing 05/27/22 11:10 05/27/22 11:15 05/27/22 11:20 Temperature Temperature Source Pulse Rate 105 H 112 H 109 H Pulse Rate [Right Apical] Pulse Rate from SpO2 Sensor 106 H 111 H 107 H Respiratory Rate 21 21 21 Respiratory Effort / Characteristics Respiratory Depth Respiratory Pattern Blood Pressure 129/81 126/58 L 125/64 Blood Pressure [Left Arm] Blood Pressure Mean 97 80 84 Blood Pressure Mean [Left Arm] Blood Pressure Position [Left Arm] Pulse Oximetry 95 98 95 Oxygen Delivery Method Room Air Room Air Room Air Sepsis New/Unexplained Change in Mental Status Sepsis Action Taken by Nursing 05/27/22 11:25 05/27/22 11:30 05/27/22 11:35 Temperature Temperature Source Pulse Rate 106 H 110 H 115 H Pulse Rate [Right Apical] Pulse Rate from SpO2 Sensor 105 H 110 H 116 H Respiratory Rate 20 19 14 Respiratory Effort / Characteristics Respiratory Depth Respiratory Pattern Blood Pressure 116/53 L 123/69 103/73 Blood Pressure [Left Arm] Blood Pressure Mean 74 87 83 Blood Pressure Mean [Left Arm] Blood Pressure Position [Left Arm] Pulse Oximetry 92 95 98 Oxygen Delivery Method Room Air Room Air Room Air Sepsis New/Unexplained Change in Mental Status Sepsis Action Taken by Nursing 05/27/22 11:43 05/27/22 12:00 Temperature Temperature Source Pulse Rate 104 H Pulse Rate [Right Apical] 107 H Pulse Rate from SpO2 Sensor 102 H Respiratory Rate 18 18 Respiratory Effort / Characteristics Non-Labored Spontaneous Respiratory Depth Normal Respiratory Pattern Regular Blood Pressure 123/58 L Blood Pressure [Left Arm] 109/55 L Blood Pressure Mean 79 Blood Pressure Mean [Left Arm] 73 Blood Pressure Position [Left Arm] Lying Pulse Oximetry 90 92 Oxygen Delivery Method Room Air Room Air Sepsis New/Unexplained Change in Mental Status Sepsis Action Taken by [facility] Medications Current Medication List: was personally reviewed by me Laboratory Data Attestation: I reviewed the patient's lab results. 05/27/22 10:23 05/27/22 10:23 Lab Results 05/27/22 05/27/22 05/27/22 Range/Units 10:10 10:23 10:23 WBC 16.73 H (4.8-10.8) K/ul RBC 1.83 L (4.20-5.40) M/uL Hgb 5.1 L* (12.0-16.0) g/dl POC Hgb (12.0-16.0) g/dl Hct 17.1 L* (37.0-47.0) % POC Hct (37-47) % MCV 93.4 (80.0-100.0) fL MCH 27.9 (25.0-34.0) pg MCHC 29.8 L (32.0-36.0) g/dL RDW Std Deviation 67.8 H (36.4-46.3) fL RDW Coeff of Myra 21.1 H (11.5-14.5) % Plt Count 300 (130-400) K/uL MPV 11.5 (9.4-12.4) fL Immature Gran % (Auto) 1.3 % Neut % (Auto) 84.1 % Lymph % (Auto) 9.3 % Runnels % (Auto) 5.1 % Eos % (Auto) 0.1 % Baso % (Auto) 0.1 % Neut # (Auto) 14.07 H (1.40-6.50) K/uL Lymph # (Auto) 1.56 (1.2-3.4) K/uL Runnels # (Auto) 0.86 H (0.11-0.59) K/uL Eos # (Auto) 0.01 (0-0.50) K/uL Baso # (Auto) 0.02 (0-0.2) K/uL Immature Gran # (Auto) 0.21 H (0.01-0.20) K/uL Polychromasia 1+ Anisocytosis Present PT (9.0-12.0) Seconds INR (0.9-1.1) APTT (21.0-31.0) Seconds PTT Ratio POC Sodium (135-144) mmol/L Sodium (136-145) mmol/L POC Potassium (3.3-5.0) mmol/L Potassium (3.5-5.1) mmol/L POC Chloride (101-112) mmol/L Chloride (98-107) mmol/L Carbon Dioxide (21-32) mmol/L POC Total CO2 (24-31) mmol/L Anion Gap (3-11) POC Anion Gap (16-25) mmol/L POC BUN (7-18) mg/dl BUN (6-23) mg/dl Creatinine (0.6-1.2) mg/dl POC Creatinine (0.6-1.3) mg/dl Est Cr Clr Drug Dosing Est GFR ( Amer) ml/min Est GFR (Non-Af Amer) ml/min BUN/Creatinine Ratio (10-20) Glucose (70-99(Fasting)) mg/dl POC Glucose (other) (70-99) mg/dl Calcium (8.6-10.3) mg/dl POC Ioniz Calcium Luis (1.12-1.32) mmol/l Total Bilirubin (0.2-1.0) mg/dl AST (13-39) U/L ALT (7-52) U/L Alkaline Phosphatase (34-104) U/L Troponin I High Sens (0-14) pg/ml Total Protein (6.0-8.3) gm/dl Albumin (3.4-5.0) gm/dl Globulin (2.5-4.0) gm/dl Albumin/Globulin Ratio (0.9-2) Lipase (11-82) U/L Urine Color Yellow Urine Appearance Cloudy A (Clear) Urine pH 6.0 (4.5-7.5) Ur Specific [place] 1.019 (1.000-1.030) Urine Protein 1+ H (Negative) Urine Glucose (UA) Negative (Negative) Urine Ketones Negative (Negative) Urine Blood Negative (Negative) Urine Nitrite Negative (Negative) Urine Bilirubin Negative (Negative) Urine Urobilinogen Negative (Negative) Ur Leukocyte Esterase Trace H (Negative) Urine WBC (Auto) 5-10 H (0-5) /hpf Urine RBC (Auto) 0-4 (0-4) /hpf U Hyaline Cast (Auto) 5-10 H (0-5) /lpf U Epithel Cells (Auto) >30 H (0-5) /lpf Urine Bacteria (Auto) Negative (Negative) SARS-CoV-2, RNA, NAAT (NEGATIVE) Blood Type A Positive Antibody Screen NEGATIVE Crossmatch See Detail 05/27/22 05/27/22 05/27/22 Range/Units 10:23 10:23 10:31 WBC (4.8-10.8) K/ul RBC (4.20-5.40) M/uL Hgb (12.0-16.0) g/dl POC Hgb 5.1 L* (12.0-16.0) g/dl Hct (37.0-47.0) % POC Hct 15 L* (37-47) % MCV (80.0-100.0) fL MCH (25.0-34.0) pg MCHC (32.0-36.0) g/dL RDW Std Deviation (36.4-46.3) fL RDW Coeff of Myra (11.5-14.5) % Plt Count (130-400) K/uL MPV (9.4-12.4) fL Immature Gran % (Auto) % Neut % (Auto) % Lymph % (Auto) % Runnels % (Auto) % Eos % (Auto) % Baso % (Auto) % Neut # (Auto) (1.40-6.50) K/uL Lymph # (Auto) (1.2-3.4) K/uL Runnels # (Auto) (0.11-0.59) K/uL Eos # (Auto) (0-0.50) K/uL Baso # (Auto) (0-0.2) K/uL Immature Gran # (Auto) (0.01-0.20) K/uL Polychromasia Anisocytosis PT 12.4 H (9.0-12.0) Seconds INR 1.2 H (0.9-1.1) APTT 22.9 (21.0-31.0) Seconds PTT Ratio 0.8 POC Sodium 138 (135-144) mmol/L Sodium 139 (136-145) mmol/L POC Potassium 4.8 (3.3-5.0) mmol/L Potassium 4.9 (3.5-5.1) mmol/L POC Chloride 98 L (101-112) mmol/L Chloride 102 (98-107) mmol/L Carbon Dioxide 27 (21-32) mmol/L POC Total CO2 24 (24-31) mmol/L Anion Gap 10 (3-11) POC Anion Gap 22.0 (16-25) mmol/L POC BUN 55 H (7-18) mg/dl BUN 59 H (6-23) mg/dl Creatinine 0.75 (0.6-1.2) mg/dl POC Creatinine 0.9 (0.6-1.3) mg/dl Est Cr Clr Drug Dosing Not Reportable Est GFR ( Amer) 92.9 ml/min Est GFR (Non-Af Amer) 80.2 ml/min BUN/Creatinine Ratio 78.7 H (10-20) Glucose 97 (70-99(Fasting)) mg/dl POC Glucose (other) 96 (70-99) mg/dl Calcium 7.8 L (8.6-10.3) mg/dl POC Ioniz Calcium Luis 1.06 L (1.12-1.32) mmol/l Total Bilirubin 0.5 (0.2-1.0) mg/dl AST 110 H (13-39) U/L ALT 65 H (7-52) U/L Alkaline Phosphatase 65 (34-104) U/L Troponin I High Sens 408.8 H* (0-14) pg/ml Total Protein 4.9 L (6.0-8.3) gm/dl Albumin 2.2 L (3.4-5.0) gm/dl Globulin 2.7 (2.5-4.0) gm/dl Albumin/Globulin Ratio 0.8 L (0.9-2) Lipase 54 (11-82) U/L Urine Color Urine Appearance (Clear) Urine pH (4.5-7.5) Ur Specific [place] (1.000-1.030) Urine Protein (Negative) Urine Glucose (UA) (Negative) Urine Ketones (Negative) Urine Blood (Negative) Urine Nitrite (Negative) Urine Bilirubin (Negative) Urine Urobilinogen (Negative) Ur Leukocyte Esterase (Negative) Urine WBC (Auto) (0-5) /hpf Urine RBC (Auto) (0-4) /hpf U Hyaline Cast (Auto) (0-5) /lpf U Epithel Cells (Auto) (0-5) /lpf Urine Bacteria (Auto) (Negative) SARS-CoV-2, RNA, NAAT (NEGATIVE) Blood Type Antibody Screen Crossmatch 05/27/22 Range/Units 10:38 WBC (4.8-10.8) K/ul RBC (4.20-5.40) M/uL Hgb (12.0-16.0) g/dl POC Hgb (12.0-16.0) g/dl Hct (37.0-47.0) % POC Hct (37-47) % MCV (80.0-100.0) fL MCH (25.0-34.0) pg MCHC (32.0-36.0) g/dL RDW Std Deviation (36.4-46.3) fL RDW Coeff of Myra (11.5-14.5) % Plt Count (130-400) K/uL MPV (9.4-12.4) fL Immature Gran % (Auto) % Neut % (Auto) % Lymph % (Auto) % Runnels % (Auto) % Eos % (Auto) % Baso % (Auto) % Neut # (Auto) (1.40-6.50) K/uL Lymph # (Auto) (1.2-3.4) K/uL Runnels # (Auto) (0.11-0.59) K/uL Eos # (Auto) (0-0.50) K/uL Baso # (Auto) (0-0.2) K/uL Immature Gran # (Auto) (0.01-0.20) K/uL Polychromasia Anisocytosis PT (9.0-12.0) Seconds INR (0.9-1.1) APTT (21.0-31.0) Seconds PTT Ratio POC Sodium (135-144) mmol/L Sodium (136-145) mmol/L POC Potassium (3.3-5.0) mmol/L Potassium (3.5-5.1) mmol/L POC Chloride (101-112) mmol/L Chloride (98-107) mmol/L Carbon Dioxide (21-32) mmol/L POC Total CO2 (24-31) mmol/L Anion Gap (3-11) POC Anion Gap (16-25) mmol/L POC BUN (7-18) mg/dl BUN (6-23) mg/dl Creatinine (0.6-1.2) mg/dl POC Creatinine (0.6-1.3) mg/dl Est Cr Clr Drug Dosing Est GFR ( Amer) ml/min Est GFR (Non-Af Amer) ml/min BUN/Creatinine Ratio (10-20) Glucose (70-99(Fasting)) mg/dl POC Glucose (other) (70-99) mg/dl Calcium (8.6-10.3) mg/dl POC Ioniz Calcium Luis (1.12-1.32) mmol/l Total Bilirubin (0.2-1.0) mg/dl AST (13-39) U/L ALT (7-52) U/L Alkaline Phosphatase (34-104) U/L Troponin I High Sens (0-14) pg/ml Total Protein (6.0-8.3) gm/dl Albumin (3.4-5.0) gm/dl Globulin (2.5-4.0) gm/dl Albumin/Globulin Ratio (0.9-2) Lipase (11-82) U/L Urine Color Urine Appearance (Clear) Urine pH (4.5-7.5) Ur Specific [place] (1.000-1.030) Urine Protein (Negative) Urine Glucose (UA) (Negative) Urine Ketones (Negative) Urine Blood (Negative) Urine Nitrite (Negative) Urine Bilirubin (Negative) Urine Urobilinogen (Negative) Ur Leukocyte Esterase (Negative) Urine WBC (Auto) (0-5) /hpf Urine RBC (Auto) (0-4) /hpf U Hyaline Cast (Auto) (0-5) /lpf U Epithel Cells (Auto) (0-5) /lpf Urine Bacteria (Auto) (Negative) SARS-CoV-2, RNA, NAAT NEGATIVE (NEGATIVE) Blood Type Antibody Screen Crossmatch Administered Medications Pantoprazole Sodium 40 mg/ (Dextrose) 100 mls @ 20 mls/hr IV Q5H JONATHAN Stop: 06/26/22 10:14 Last Infusion: 05/27/22 11:07 Dose: 0 mg/hr, 0 mls/hr Documented By: Admin: 05/27/22 10:51 Dose: 8 mg/hr, 20 mls/hr Documented By: JAYME Discontinued Medications Famotidine (Pepcid 20mg Iv Push) 20 mg in 5 mls @ 2.5 mls/min IV NOW STA Stop: 05/27/22 09:48 Last Admin: 05/27/22 10:33 Dose: 2.5 mls/min Documented By: JAYME Pantoprazole Sodium 80 mg/ (Dextrose) 100 mls @ 400 mls/hr IV ONE STA Stop: 05/27/22 10:01 Last Infusion: 05/27/22 10:48 Dose: 0 mls/hr Documented By: Admin: 05/27/22 10:34 Dose: 400 mls/hr Documented By: JAYME Pantoprazole Sodium 80 mg/ (Dextrose) 120 mls @ 400 mls/hr IV NOW ONE Stop: 05/27/22 10:04 Last Admin: 05/27/22 10:50 Dose: Not Given Documented By: JAYME Sodium Chloride (Nss 1000ml) 2,000 mls @ 999 mls/hr IV .Q2H1M ONE Stop: 05/27/22 11:47 Last Infusion: 05/27/22 12:24 Dose: 0 mls/hr Documented By: Admin: 05/27/22 10:35 Dose: 999 mls/hr Documented By: JAYME Calcium Gluconate () 1,000 mg in 60 mls @ 240 mls/hr IV NOW STA Stop: 05/27/22 11:17 Last Infusion: 05/27/22 11:52 Dose: 0 mls/hr Documented By: Admin: 05/27/22 11:21 Dose: 240 mls/hr Documented By: JAYME Ioversol (Optiray 350 100ml) 88 ml IV ONCE ONE Stop: 05/27/22 12:00 Last Admin: 05/27/22 12:02 Dose: 88 ml Documented By: MEGHA Ondansetron HCl (Ondansetron Inj 2 Mg/Ml 2 Ml Vial) 4 mg IV ONE STA Stop: 05/27/22 09:48 Last Admin: 05/27/22 10:23 Dose: 4 mg Documented By: JAYME Imaging Data Radiologist's Impression: Abdomen/Pelvis CT 05/27/22 09:47 CT abd pelvis IV con only CLINICAL HISTORY: gi bleed TECHNIQUE: Helical axial images of the abdomen and pelvis were obtained and displayed. Automated dose lowering techniques and/or adjustment according to patient size were utilized for this exam. This exam was performed with intravenous contrast. CT DOSE: 411.75 mGy.cm COMPARISON: Comparison is made to CT abdomen pelvis 12/03/2018 FINDINGS: Lower chest: Peripheral interstitial changes are seen. Cardiomegaly is noted. Liver: Subcentimeter hypodensities in the liver are too small to characterize. Gallbladder and biliary tree: Patient is status post cholecystectomy. No intra- or extrahepatic biliary ductal dilation. Pancreas: Unremarkable, no focal lesions. Spleen: Unremarkable. Adrenals: Unremarkable. Kidneys and ureters: Left renal cyst is seen. Bladder: Soliz catheter is seen. Reproductive organs: Unremarkable. Bowel: Diverticulosis is seen without evidence of diverticulitis. The appendix is unremarkable. There is a small hiatal hernia. Gastrostomy tube is seen in place. Lymph nodes Retroperitoneal: Unremarkable. Pelvic: Unremarkable. Mesenteric: Unremarkable. Peritoneum: Small ascites is seen most prominent in the right upper quadrant. No pneumoperitoneum or drainable fluid collection. Vessels: Atherosclerotic calcifications are seen. Abdominal wall: Unremarkable. Bones: Degenerative changes in the visualized spine. IMPRESSION: 1. No acute abnormalities are seen. There is nonspecific small right upper quadrant ascites. 2. Gastrostomy tube is again seen. Diverticulosis without diverticulitis. 3. There is cardiomegaly and pulmonary fibrotic changes. 4. Additional findings as above. ACT 112: Negative or not required by law. Electronically signed by: Xavier Tavares M.D. 05/27/2022 12:23 PM Chest X-Ray 05/27/22 09:47 XR chest 1V portable CLINICAL HISTORY: gi bleed TECHNIQUE: Single frontal radiograph of the chest was obtained. Comparison: Comparison is made to chest radiograph 05/17/2022 FINDINGS: No lines and tubes are seen. The aorta is tortuous. The remainder of the cardiomediastinal silhouette is unremarkable. Reticular interstitial opacities are seen. Lungs are underinflated. No evidence of pleural effusion or pneumothorax. IMPRESSION: No acute chest disease. ACT 112: Negative or not required by law. Electronically signed by: Xavier Tavares M.D. 05/27/2022 11:24 AM Discharge Plan Visit Data Chief Complaint: GI Bleed Stated Complaint: GI BLEED ED Provider: Ziyad To Discharge Problem: Hypotension, Acute GI bleeding, Anemia, Hematemesis, Hypocalcemia Patient Disposition: Admitted As Inpatient Condition: Serious Discharge Instructions Interventions: ED Discharge Assessment Last Done: 05/27/22 12:42
[2022-05-27] MEDS: PANTOprazole 40 MG in DEXTROSE 5% 100 ML IV SCH ×3 (10:51→22:51)
[2022-05-27 10:57] LABS: Alanine Aminotransferase 65 U/L (7-52); Albumin Globulin Ratio 0.8 (0.9-2); Albumin Level 2.2 gm/dl (3.4-5.0); Alkaline Phosphatase 65 U/L (34-104); Anion Gap 10 (3-11); Aspartate Aminotransferase 110 U/L (13-39); BUN Creatinine Ratio 78.7 (10-20); Bilirubin,Total 0.5 mg/dl (0.2-1.0); Blood Urea Nitrogen 59 mg/dl (6-23); Calcium 7.8 mg/dl (8.6-10.3); Carbon Dioxide 27 mmol/L (21-32); Chloride 102 mmol/L (98-107); Est GFR (African American) 92.9 ml/min; Est GFR (Non-African American) 80.2 ml/min; Globulin 2.7 gm/dl (2.5-4.0); Glucose 97 mg/dl (70-99(Fasting)); Lipase 54 U/L (11-82); Potassium 4.9 mmol/L (3.5-5.1); Sodium 139 mmol/L (136-145); Total Protein 4.9 gm/dl (6.0-8.3)
[2022-05-27 11:03] LABS: iSTAT Creatinine 0.9 mg/dl (0.6-1.3); iSTAT Hemoglobin 5.1 g/dl (12.0-16.0); iSTAT Ionized Calcium 1.06 mmol/l (1.12-1.32); iSTAT Potassium 4.8 mmol/L (3.3-5.0)
[2022-05-27] MEDS ORDERED: CALCIUM GLUCONATE 1,000 MG/60 ML BAG IV STA (11:03)
[2022-05-27 11:11] LABS: Troponin I High Sensitivity 408.8 pg/ml (0-14)
[2022-05-27 11:15] LABS: INR 1.2 (0.9-1.1); Partial Thromboplastin Ratio 0.8; Partial Thromboplastin Time 22.9 Seconds (21.0-31.0); Prothrombin Time 12.4 Seconds (9.0-12.0)
--- NOTE | 2022-05-27 11:26 | XRay Report ---
XR chest 1V portable CLINICAL HISTORY: gi bleed TECHNIQUE: Single frontal radiograph of the chest was obtained. Comparison: Comparison is made to chest radiograph 05/17/2022 FINDINGS: No lines and tubes are seen. The aorta is tortuous. The remainder of the cardiomediastinal silhouette is unremarkable. Reticular interstitial opacities are seen. Lungs are underinflated. No evidence of pleural effusion or pneumothorax. IMPRESSION: No acute chest disease. ACT 112: Negative or not required by law. Electronically signed by: Xavier Tavares M.D. 05/27/2022 11:24 AM
[2022-05-27 11:35] LABS: Hematocrit (blood only) 17.1 % (37.0-47.0); Hemoglobin 5.1 g/dl (12.0-16.0); Mean Corpuscular Hemoglobin 27.9 pg (25.0-34.0); Mean Corpuscular Hgb Conc 29.8 g/dL (32.0-36.0); Mean Corpuscular Volume 93.4 fL (80.0-100.0); Mean Platelet Volume 11.5 fL (9.4-12.4); Platelet Count 300 K/uL (130-400); RDW Coefficient of Variation 21.1 % (11.5-14.5); RDW Standard Deviation 67.8 fL (36.4-46.3); Red Blood Count 1.83 M/uL (4.20-5.40); White Blood Count 16.73 K/ul (4.8-10.8)
[2022-05-27 11:39] LABS: Anisocytosis Present; Basophils # (auto) 0.02 K/uL (0-0.2); Basophils % (auto) 0.1 %; Eosinophils # (auto) 0.01 K/uL (0-0.50); Eosinophils % (auto) 0.1 %; Immature Granulocytes # (auto) 0.21 K/uL (0.01-0.20); Immature Granulocytes % (auto) 1.3 %; Lymphocytes # (auto) 1.56 K/uL (1.2-3.4); Lymphocytes % (auto) 9.3 %; Monocytes # (auto) 0.86 K/uL (0.11-0.59); Monocytes % (auto) 5.1 %; Neutrophils # (auto) 14.07 K/uL (1.40-6.50); Neutrophils % (auto) 84.1 %; Polychromasia 1+
[2022-05-27] MEDS ORDERED: OPTIRAY 350 100ml IV ONE (11:59)
--- NOTE | 2022-05-27 12:25 | History & Physical Report ---
Date of Service May 27, 2022 Assessment & Plan (1) Upper GI bleeding: (2) Hypovolemic shock: (3) Severe anemia: (4) Esophagitis determined by endoscopy: (5) Pulmonary hypertension: (6) History of CVA (cerebrovascular accident): (7) History of seizures: (8) CHF (congestive heart failure): (9) COPD (chronic obstructive pulmonary disease): (10) Interstitial lung disease: Plan This is a 72yo F with a PMH of dysphagia and esophagitis status post PEG placement on 05/18/2022, pulmonary hypertension, CHF, dermatomyositis, ILD, Raynaud's disease, history of CVA, history of seizures, history of tobacco use, polyneuropathy and other medical problems listed below who presents from [facility] vomiting bright blood as well as bright red blood per rectum. Acute GI bleed Hematemesis Esophagitis Severe anemia Hypovolemic shock Recently admitted and had PEG tube placement on 05/19/22, EGD revealing esophagitis, recommended 40mg Protonix BID Taking aspirin/plavix for h/o CVA, also on 20mg prednisone daily course for dermatomyositis Began vomiting blood clots around 0100, BRBPR and sent over from [facility] Initialy hypotensive with SBP in 60s, improved to 113/56 following 2L NSS bolus Hgb 5.1, hct 17.1, BUN 59 Consented and receiving 1st of 2 u prbcs, repeat H&H at 1800 NPO (hold tube feeds for now), continue protonix drip Discussed with Dr. Selby covering for GI,will evaluate Discussed with daughter Sol over phone who confirmed patient as a DNR but okay with central line if needed to maintain BP, okay with EGD Elevated troponin HS troponin 408.8 in setting of upper GI bleed. No chest pain or acute ST changes on ECG. Likely demand ischemia. Continue to trend troponin, monitor on tele, repeat ECG in AM Echo from last week showed no LV wall motion abnormality. Ejection fraction 55 to 60% Leukocytosis WBC 16.7k in setting of prednisone use. Will obtain blood cx/urine cx ILD Recent PNA Follows with Pulm in [place]; Dr. Portillo Recent admission for PNA vs aspiriation pneumonitis treated with abx CXR today with no acute chest disease Dysphagia Due to disease process, 05/19/22 EGD showed esophagitis and PEG tube placed Pulmonary HTN CHF Takes Aldactone and Lasix; hold for now due to hypotension 2/2 bleed Continue monitor closely Dermatomyositis Follows with Rheumatology; Dr. Moncada Prescribed CellCept, history of non-compliance in the past Takes Prednisone 20mg daily - will need to clarify dose once no longer NPO H/O seizures Stable. Continue Keppra H/O CVA H/o CVA in 2020 without residual deficits On Dual antiplatelet therapy (ASA and Plavix) + statin Holding asa/plavix given upper GI bleed May benefit from discussion with neuro about reducing to single antiplatelet given GI bleed, esophagitis GERD Was previously on Protonix but DC due to interfering with CellCept Hypocalcemia Corrected Ca of 9.2 when considering hypoalbuminemia. Replaced in ED. Repeat Ca in AM labs DVT Ppx: SCDs Code status: DNR/DNI PCP: [facility] Dispo: Admitted to PCU Patient seen in collaboration with Dr. Lowery. Please see addendum. I spent a total of 90 minutes coordinating, documenting, and providing care for this patient excluding time spent in the performance of separately billed services. George Horton requesting daily updates ([phone], ) History of Present Illness Chief Complaint: hematemesis Primary Care Provider: VIRY Felipe This is a 72yo F with a PMH of dysphagia and esophagitis status post PEG placement on 05/19/2022, pulmonary hypertension, CHF, dermatomyositis, ILD, Raynaud's disease, history of CVA, history of seizures, history of tobacco use, polyneuropathy and other medical problems listed below who presents from [facility] vomiting bright blood as well as bright red blood per rectum. Initial SBP on arrival was in 60s. Bolused 2L NSS with improved BP to 109/55, HR 107. Was recently admitted to [facility] for treatment of pneumonia and while here, underwent EGD due to dysphagia for PEG tube placement. Found to have nonbleeding esophagitis and recommended to start Protonix 40 mg twice daily. Was discharged from [facility] to [facility] on 05/23/22 and was feeling a lot better up until early this morning. History primarily obtained over the phone from george Chavez. Facility called her early this morning informing her that patient began vomiting blood clots around 0100 and was having bright red blood per rectum. The largest blood clot was said to be the size of a golf ball. Scott came into the hospital this morning around 7 and felt her mom looked pale and weak compared to normal. Had been receiving tube feeds and meds per PEF, but they were stopped when she started to have vomiting. Did call to confirm patient received protonix dose this AM. Was sent to ED for further evaluation. Of note, patient is on aspirin and Plavix for history of CVA. Also on a prednisone course of 20 mg daily for history of dermatomyositis for which she follows with rheumatology. Per daughter, patient is usually alert and oriented and able to answer basic questions appropriately on exam but has limited insight to health or complex issues ever since stroke/ongoing seizure disorder as well as recently finding out that her other daughter has unexpectedly 2 weeks ago and is greiving. On exam, patient is alert and oriented but not entirely clear on situation. Endorsing fatigue and abdominal pain. Denies any fever, chills, chest pain, shortness of breath, dysuria, constipation. Clarified with daughter Sol that patient is a DNR/DNI. Okay with blood products, IV fluids and a central line if needed to maintain BP. Allergies Allergy/AdvReac Type Severity Reaction Status Date / Time No Known Allergies Allergy Verified 05/18/22 10:31 Home Medications Medication Instructions Recorded Confirmed Type doxepin 50 mg capsule 50 - 150 mg PO HS PRN Sleep 12/03/18 05/08/22 History gabapentin 100 mg capsule 100 mg PO TID 12/03/18 05/08/22 History mycophenolate mofetil 500 mg tablet 1,000 mg PO BID 12/03/18 05/08/22 History aspirin 81 mg tablet,delayed 81 mg PO QAM #90 tabs 08/30/20 05/08/22 Rx release atorvastatin 40 mg tablet 40 mg PO QAM #30 tabs 08/30/20 05/08/22 Rx clopidogrel 75 mg tablet (Plavix) 75 mg PO DAILY #30 tabs 08/30/20 05/08/22 Rx levetiracetam 500 mg tablet 500 mg PO BID #60 tabs 08/30/20 05/08/22 Rx (Keppra) furosemide 20 mg tablet (Lasix) 20 mg 3XWK 05/08/22 05/08/22 History potassium 20 mg chewable tablet 10 mg PO 3XWK 05/08/22 05/08/22 History spironolactone 25 mg tablet 25 mg PO DAILY 05/08/22 05/08/22 History (Aldactone) nutrition movu-zayuld-AIP-fiber 1 ea G-tube UD 30 days #30 BTLS 05/23/22 Rx 0.05 gram-1.2 kcal/mL tube feed liquid (Fibersource HN) pantoprazole 40 mg tablet,delayed 40 mg PO QAM #30 tabs 05/23/22 Rx release prednisone 20 mg tablet 20 mg NG DAILY #30 tabs 05/23/22 Rx Past Med/Surg History Medical History Acute dyspnea Acute metabolic encephalopathy Acute respiratory failure with hypoxia Anemia Aspiration pneumonia DVT prophylaxis Elevated troponin History of CVA (cerebrovascular accident) History of seizures Pneumonia Pulmonary hypertension Shortness of breath UTI (urinary tract infection) Weakness Surgical History History of hysterectomy Family History Other Cancer Heart disease Social History Smoking Status: Former smoker Tobacco Type: Cigarettes Smoking End Date: 2016, 30 pack years; Second Hand Exposure: No; Hx Alcohol Use: No Hx Substance Use: No Preferred Language: [place] Communication Ability: Effective Communication Ability Comment: currently having some aphasia Pin Attacher Required: No Beliefs That Will Affect Care: None marital status: Single Current Living Situation: Alone Current Living Situation Comment: At home byself recently enrolled in home health Other Information That Helps Us Care for You: No Feels Safe at Home: Yes Safety Concerns: Feels Safe At This Time Assistive Devices: Denture - Upper, Denture - Lower and Walker Review of Systems Review of Systems: At least ten systems reviewed and negative except as noted in the HPI. Physical Exam Physical Exam: Please see Dr. Lowery's addendum for physical exam. Results & Data Results & Data Vital Signs (Past 12 Hours) Vital Signs Temp Pulse Pulse Resp BP BP Pulse Ox 05/27/22 12:00 107 H 18 109/55 L 92 05/27/22 12:14 36.7 C 107 H 18 109/55 L 94 04/01/23 11:43 104 H 18 123/58 L 90 05/27/22 11:35 115 H 14 103/73 98 05/27/22 11:30 110 H 19 123/69 95 05/27/22 11:25 106 H 20 116/53 L 92 05/27/22 11:20 109 H 21 125/64 95 05/27/22 11:15 112 H 21 126/58 L 98 05/27/22 11:10 105 H 21 129/81 95 05/27/22 11:05 108 H 20 115/59 L 94 05/27/22 11:00 100 H 20 119/55 L 93 05/27/22 10:55 103 H 20 118/55 L 92 05/27/22 10:50 99 H 21 119/55 L 93 05/27/22 10:45 100 H 22 118/53 L 93 05/27/22 10:40 110 H 25 H 99/66 L 05/27/22 10:43 102 H 20 92 05/27/22 10:43 102 H 20 99/66 L 92 05/27/22 10:35 102 H 21 121/55 L 05/27/22 10:30 103 H 19 118/78 05/27/22 10:15 111 H 24 133/57 L 05/27/22 10:05 111 H 22 71/44 L 05/27/22 10:00 105 H 24 76/38 L 05/27/22 09:55 104 H 31 H 69/43 L 05/27/22 09:53 105 H 29 H 77/48 L 05/27/22 09:46 105 H 24 92 05/27/22 09:50 107 H 05/27/22 09:38 36.8 C 105 H 18 67/29 L O2 Del Method 05/27/22 12:00 Room Air 05/27/22 12:14 05/27/22 11:43 Room Air 05/27/22 11:35 Room Air 05/27/22 11:30 Room Air 05/27/22 11:25 Room Air 05/27/22 11:20 Room Air 05/27/22 11:15 Room Air 05/27/22 11:10 Room Air 05/27/22 11:05 Room Air 05/27/22 11:00 Room Air 05/27/22 10:55 Room Air 05/27/22 10:50 Room Air 05/27/22 10:45 Room Air 05/27/22 10:40 05/27/22 10:43 Room Air 05/27/22 10:43 Room Air 05/27/22 10:35 05/27/22 10:30 05/27/22 10:15 05/27/22 10:05 05/27/22 10:00 05/27/22 09:55 05/27/22 09:53 05/27/22 09:46 Room Air 05/27/22 09:50 05/27/22 09:38 Supervising Physician Co-Signing Physician Notes Pt is a 72 y/o F with hx of HFpEF, ILD, Dermatomyositis on prednisone, dysphagia with recently placement of Peg Tube, Hx of CVA, seizure, mild dementia, recently hospital admission for pneumonia admitted for GI for 1 day. PE: Appeared sleepy, NAD HEENT: Dry oropharynx, exotrophia of the R eye Cardiac: normal S1/S2, no murmur Lungs: CTA, no wheezing or crackles Abd: peg tube in place with small amount of dry blood around the insertion site, soft, ND, diffuse TTP MSK: b/l trace LE pitting edema Psych: AAOx3 (got the month wrong) A/P: Hypotension due to severe anemia from acute GI bleed: -BP did respond to IVF -started on Protonix drip -recent EGD did show signs of esophagitis -current hgb is 5.1 and discharge hgb was 9.9 --- pt is sched to received 2 Units of PRBC -will repeat hgb in 6 hrs -GI consulted -will maintain pt on IVF fluids (maintenance) - CT abd: No acute abnormalities are seen. There is nonspecific small right upper quadrant ascites -NPO - hold aspirin and Plavix Elevated WBC: - not suspecting infection - likely 2/2 prednisone use -CXR: no acute finding - CT abd: no acute infection - due to hypotension will send UCx and BCx Elevated trop with HFpEF: -likely demand ischemia -admit to tele and trend trop Dermatomyositis: -holding prednisone for now -once pt can tolerate oral meds will reach out to Rheum for recommendation on dose and medication [place] with hx of esophagitis and current hx of GI bleed Other chronic conditions: plan as above Agree with A/P by Maci Wade PA-C (8) CHF (congestive heart failure) Heart failure chronicity: acute Heart failure type: unspecified Qualified Code(s): I50.9 - Heart failure, unspecified
--- NOTE | 2022-05-27 12:26 | CT Scan Report ---
CT abd pelvis IV con only CLINICAL HISTORY: gi bleed TECHNIQUE: Helical axial images of the abdomen and pelvis were obtained and displayed. Automated dose lowering techniques and/or adjustment according to patient size were utilized for this exam. This e xam was performed with intravenous contrast. CT DOSE: 411.75 mGy.cm COMPARISON: Comparison is made to CT abdomen pelvis 12/03/2018 FINDINGS: Lower chest: Peripheral interstitial changes are seen. Cardiomegaly is noted. Liver: Subcentimeter hypodensities in the liver are too small to characterize. Gallbladder and biliary tree: Patient is status post cholecystectomy. No intra- or extrahepatic bilia ry ductal dilation. Pancreas: Unremarkable, no focal lesions. Spleen: Unremarkable. Adrenals: Unremarkable. Kidneys and ureters: Left renal cyst is seen. Bladder: Soliz catheter is seen. Reproductive organs: Unremarkable. Bowel: Diverticulosis is seen without evidence of diverticulitis. The appendix is unremarkable. There is a small hiatal hernia. Gastrostomy tube is seen in place. Lymph nodes Retroperitoneal: Unremarkable. Pelvic: Unremarkable. Mesenteric: Unremarkable. Peritoneum: Small ascites is seen most prominent in the right upper quadrant. No pneumoperitoneum or drainable fluid collection. Vessels: Atherosclerotic calcifications are seen. Abdominal wall: Unremarkable. Bones: Degenerative changes in the visualized spine. IMPRESSION: 1. No acute abnormalities are seen. There is nonspecific small right upper quadrant ascites. 2. Gastrostomy tube is again seen. Diverticulosis without diverticulitis. 3. There is cardiomegaly and pulmonary fibrotic changes. 4. Additional findings as above. ACT 112: Negative or not required by law. Electronically signed by: Xavier Tavares M.D. 05/27/2022 12:23 PM
--- NOTE | 2022-05-27 13:09 | Electrocardiogram Report ---
Test Reason : Blood Pressure : / mmHG Vent. Rate : 104 BPM Atrial Rate : 104 BPM P-R Int : 150 ms QRS Dur : 088 ms QT Int : 366 ms P-R-T Axes : 047 -34 065 degrees QTc Int : 481 ms Poor data quality, interpretation may be adversely affected Sinus tachycardia Left ventricular hypertrophy with repolarization abnormality Abnormal ECG When compared with ECG of 13-MAY-2022 03:37, Criteria for Anterior infarct are no longer Present Confirmed by Horacio Leggett ([id number]) on 05/27/2022 1:09:03 PM Referred By: Confirmed By:Horacio Leggett
[2022-05-27] MEDS ORDERED: POLYETHYLENE (MIRALAX) 17 GM PACK PO PRN (13:27)
[2022-05-27] MEDS ORDERED: ACETAMINOPHEN 325 MG TAB PO PRN (13:27)
[2022-05-27] MEDS ORDERED: ONDANSETRON INJ 2 MG/ML 2 ML VIAL IV PRN (13:27)
[2022-05-27 15:41] LABS: Appearance Urine Cloudy (Clear); Bacteria Urine Automated Negative (Negative); Bilirubin Urine Negative (Negative); Blood Urine Negative (Negative); Color Urine Yellow; Epithelial Cell Urine Auto >30 /lpf (0-5); Glucose Urine UA Negative (Negative); Ketones Urine Negative (Negative); Leukocyte Esterase Urine Trace (Negative); Nitrite Urine Negative (Negative); Protein Urine 1+ (Negative); RBC Urine Automated 0-4 /hpf (0-4); Specific Gravity Urine 1.019 (1.000-1.030); Urobilinogen Urine Negative (Negative)
[2022-05-27] MEDS: levETIRAcetam 500 MG in 0.9 % SODIUM CHLORIDE 100 ML IV SCH (17:47)
[2022-05-28] MEDS: levETIRAcetam 500 MG in 0.9 % SODIUM CHLORIDE 100 ML IV SCH ×2 (02:28→16:15)
[2022-05-28] MEDS: PANTOprazole 40 MG in DEXTROSE 5% 100 ML IV SCH ×4 (03:38→19:34)
[2022-05-28 07:19] LABS: Albumin Globulin Ratio 0.9 (0.9-2); Albumin Level 2.1 gm/dl (3.4-5.0); Bilirubin,Total 0.4 mg/dl (0.2-1.0); Calcium 7.5 mg/dl (8.6-10.3); Creatinine Clr Calc Pharmacy 68.9 ml/min; Est GFR (African American) 102.5 ml/min; Est GFR (Non-African American) 88.4 ml/min; Globulin 2.4 gm/dl (2.5-4.0); Potassium 4.3 mmol/L (3.5-5.1); Total Protein 4.5 gm/dl (6.0-8.3)
[2022-05-28 07:28] LABS: Hematocrit (blood only) 24.4 % (37.0-47.0); Hemoglobin 8.1 g/dl (12.0-16.0); Mean Corpuscular Hemoglobin 30.6 pg (25.0-34.0); Mean Corpuscular Hgb Conc 33.2 g/dL (32.0-36.0); Mean Corpuscular Volume 92.1 fL (80.0-100.0); Mean Platelet Volume 11.6 fL (9.4-12.4); Platelet Count 149 K/uL (130-400); RDW Coefficient of Variation 17.1 % (11.5-14.5); RDW Standard Deviation 55.1 fL (36.4-46.3); Red Blood Count 2.65 M/uL (4.20-5.40); White Blood Count 8.31 K/ul (4.8-10.8)
--- NOTE | 2022-05-28 08:18 | Electrocardiogram Report ---
Test Reason : Blood Pressure : / mmHG Vent. Rate : 084 BPM Atrial Rate : 084 BPM P-R Int : 168 ms QRS Dur : 094 ms QT Int : 380 ms P-R-T Axes : 045 -33 046 degrees QTc Int : 449 ms Sinus rhythm with Premature supraventricular complexes Left ventricular hypertrophy with repolarization abnormality Abnormal ECG When compared with ECG of 27-MAY-2022 09:55, Premature supraventricular complexes are now Present Confirmed by Horacio Leggett ([id number]) on 05/28/2022 8:18:25 AM Referred By: REFERRED SELF Confirmed By:Horacio Leggett
--- NOTE | 2022-05-28 08:51 | Gastrointestinal Consultation ---
Date of Consultation May 28, 2022 Assessment & Plan (1) Anemia: Fairly significant drop in hemoglobin but neither of the two stories I get about her history really is consistent with a 5 gm drop in hemoglobin. She is not bleeding now and is just off her plavix. I don't think she needs an emergent EGD and I will let her primary GI decide if they want to pursue one with her history. I am not sure there is really any other explanation for this drop as her CT does not suggest intraabdominal hemorrhage. History of Present Illness Reason for Consultation: vomiting blood Attending Physician: Alfreda Cruz MD History of Present Illness 72 year old female who had a gastrostomy tube placed on 05/18 for "aspiration" and dysphagia. LA class C esophagitis was found on the endoscopic part of the tube placement. She is on plavix for a history of a CVA, she has pulmonary hypertension, CHF and multiple other medical problems. The history from this point is a little conflicting. She tells me she has been bringing up mucus and the day she came in she had globs of mucus with blood in it. The report given to the ER was that she was vomiting "golf ball sized clots". She tells me she has not been vomiting. At any rate she has had none of this since she has been in the hospital. History given to ER was that she was passing blood in her stool. She tells me she has never passed blood in her stool. She has one bowel movement documented that was "soft and brown" but has had none since she has been on the floor. She denies abdominal pain whatsoever. She was admitted with a hemoglobin of 5 which is down from 9.9 on the 19 of May. She denies melenic stools as well since she had her feeding tube placed Allergies Allergy/AdvReac Type Severity Reaction Status Date / Time No Known Allergies Allergy Verified 05/18/22 10:31 Home Medications Medication Instructions Recorded Confirmed Type doxepin 50 mg capsule 50 - 150 mg PO HS PRN Sleep 12/03/18 05/27/22 History gabapentin 100 mg capsule 100 mg PO TID 12/03/18 05/27/22 History mycophenolate mofetil 500 mg tablet 1,000 mg PO BID 12/03/18 05/27/22 History aspirin 81 mg tablet,delayed 81 mg PO QAM #90 tabs 08/30/20 05/27/22 Rx release atorvastatin 40 mg tablet 40 mg PO QAM #30 tabs 08/30/20 05/27/22 Rx clopidogrel 75 mg tablet (Plavix) 75 mg PO DAILY #30 tabs 08/30/20 05/27/22 Rx levetiracetam 500 mg tablet 500 mg PO BID #60 tabs 08/30/20 05/27/22 Rx (Keppra) furosemide 20 mg tablet (Lasix) 20 mg 3XWK 05/08/22 05/27/22 History potassium 20 mg chewable tablet 10 mg PO 3XWK 05/08/22 05/27/22 History spironolactone 25 mg tablet 25 mg PO DAILY 05/08/22 05/27/22 History (Aldactone) nutrition [id number] 1 ea G-tube UD 30 days #30 BTLS 05/23/22 05/27/22 Rx 0.05 gram-1.2 kcal/mL tube feed liquid (Fibersource HN) pantoprazole 40 mg tablet,delayed 40 mg PO QAM #30 tabs 05/23/22 05/27/22 Rx release prednisone 20 mg tablet 20 mg NG DAILY #30 tabs 05/23/22 05/27/22 Rx pantoprazole 40 mg tablet,delayed 40 mg PO BID 05/27/22 05/27/22 History release (Protonix) Patient History Medical History Acute dyspnea Acute metabolic encephalopathy Acute respiratory failure with hypoxia Anemia Aspiration pneumonia DVT prophylaxis Elevated troponin History of CVA (cerebrovascular accident) History of seizures Pneumonia Pulmonary hypertension Shortness of breath UTI (urinary tract infection) Weakness Surgical History History of hysterectomy Family History Other Cancer Heart disease Social History Smoking Status: Former smoker Tobacco Type: Cigarettes Smoking End Date: 2016, 30 pack years; Second Hand Exposure: No; Hx Alcohol Use: No Hx Substance Use: No Preferred Language: Yi Communication Ability: Effective Communication Ability Comment: currently having some aphasia Invasive Physician Required: No Beliefs That Will Affect Care: None marital status: Single Current Living Situation: Alone Current Living Situation Comment: At home byself recently enrolled in home health Other Information That Helps Us Care for You: No Feels Safe at Home: Yes Safety Concerns: Feels Safe At This Time Assistive Devices: Denture - Upper, Denture - Lower and Walker Review of Systems Review of Systems: All systems reviewed & are unremarkable except as noted in HPI & below Physical Exam Constitutional: WD/WN, vitals as above no acute distress Eyes: PERRL, conjunctivae normal, anicteric sclerae ENMT: external ear and nose normal, oropharynx normal Neck: trachea midline, no thyromegaly Respiratory: normal respiratory effort, lungs clear to auscultation Cardiovascular: RRR, no murmur, no edema Gastrointestinal (Abdomen): normal bowel sounds, soft, nontender, no hepatosplenomegaly (feeding tube in place with mild tenderness at tube site no purulence) Musculoskeletal: Extremities: no cyanosis and no clubbing Skin: no rashes, warm and dry Neurologic: PERRL, EOMI, accommodation nl, no face palsy, no dysarthria Psychiatric: Orientation: alert and oriented x 3 Results & Data Vital Signs (Past 12 Hours) Vital Signs Temp Pulse Pulse Resp BP Pulse Ox O2 Del Method 05/28/22 07:54 36.4 C L 82 16 121/58 L 95 Room Air 05/28/22 07:25 76 05/28/22 02:33 36.8 C 83 18 140/71 100 Nasal Cannula 05/27/22 23:58 85 05/27/22 23:27 98 Nasal Cannula 05/27/22 23:25 36.6 C 85 17 108/54 L 88 L Room Air O2 Flow Rate 05/28/22 07:54 05/28/22 07:25 05/28/22 02:33 2 05/27/22 23:58 05/27/22 23:27 2 05/27/22 23:25 Laboratory Results 05/28/22 05/28/22 05/27/22 Range/Units 06:35 06:35 23:03 WBC 8.31 (4.8-10.8) K/ul RBC 2.65 L (4.20-5.40) M/uL Hgb 8.1 L (12.0-16.0) g/dl POC Hgb (12.0-16.0) g/dl Hct 24.4 L (37.0-47.0) % POC Hct (37-47) % MCV 92.1 (80.0-100.0) fL MCH 30.6 (25.0-34.0) pg MCHC 33.2 D (32.0-36.0) g/dL RDW Std Deviation 55.1 H (36.4-46.3) fL RDW Coeff of Myra 17.1 H (11.5-14.5) % Plt Count 149 D (130-400) K/uL MPV 11.6 (9.4-12.4) fL Immature Gran % (Auto) % Neut % (Auto) % Lymph % (Auto) % [place] % (Auto) % Eos % (Auto) % Baso % (Auto) % Neut # (Auto) (1.40-6.50) K/uL Lymph # (Auto) (1.2-3.4) K/uL [place] # (Auto) (0.11-0.59) K/uL Eos # (Auto) (0-0.50) K/uL Baso # (Auto) (0-0.2) K/uL Immature Gran # (Auto) (0.01-0.20) K/uL Polychromasia Anisocytosis PT (9.0-12.0) Seconds INR (0.9-1.1) APTT (21.0-31.0) Seconds PTT Ratio POC Sodium (135-144) mmol/L Sodium 140 (136-145) mmol/L POC Potassium (3.3-5.0) mmol/L Potassium 4.3 (3.5-5.1) mmol/L POC Chloride (101-112) mmol/L Chloride 109 H (98-107) mmol/L Carbon Dioxide 28 (21-32) mmol/L POC Total CO2 (24-31) mmol/L Anion Gap 3 (3-11) POC Anion Gap (16-25) mmol/L POC BUN (7-18) mg/dl BUN 61 H (6-23) mg/dl Creatinine 0.67 (0.6-1.2) mg/dl POC Creatinine (0.6-1.3) mg/dl Est Cr Clr Drug Dosing 68.9 Est GFR ( Amer) 102.5 ml/min Est GFR (Non-Af Amer) 88.4 ml/min BUN/Creatinine Ratio 91.0 H (10-20) Glucose 77 (70-99(Fasting)) mg/dl POC Glucose (other) (70-99) mg/dl Calcium 7.5 L (8.6-10.3) mg/dl POC Ioniz Calcium Luis (1.12-1.32) mmol/l Total Bilirubin 0.4 (0.2-1.0) mg/dl AST 92 H (13-39) U/L ALT 57 H (7-52) U/L Alkaline Phosphatase 50 (34-104) U/L Troponin I High Sens (0-14) pg/ml Total Protein 4.5 L (6.0-8.3) gm/dl Albumin 2.1 L (3.4-5.0) gm/dl Globulin 2.4 L (2.5-4.0) gm/dl Albumin/Globulin Ratio 0.9 (0.9-2) Lipase (11-82) U/L Urine Color Urine Appearance (Clear) Urine pH (4.5-7.5) Ur Specific [place] (1.000-1.030) Urine Protein (Negative) Urine Glucose (UA) (Negative) Urine Ketones (Negative) Urine Blood (Negative) Urine Nitrite (Negative) Urine Bilirubin (Negative) Urine Urobilinogen (Negative) Ur Leukocyte Esterase (Negative) Urine WBC (Auto) (0-5) /hpf Urine RBC (Auto) (0-4) /hpf U Hyaline Cast (Auto) (0-5) /lpf U Epithel Cells (Auto) (0-5) /lpf Urine Bacteria (Auto) (Negative) Nasal Screen MRSA (PCR) Negative (Negative) SARS-CoV-2, RNA, NAAT (NEGATIVE) Blood Type Antibody Screen Crossmatch 05/27/22 05/27/22 05/27/22 Range/Units 22:24 18:51 18:51 WBC (4.8-10.8) K/ul RBC (4.20-5.40) M/uL Hgb 9.0 L D (12.0-16.0) g/dl POC Hgb (12.0-16.0) g/dl Hct 28.0 L (37.0-47.0) % POC Hct (37-47) % MCV (80.0-100.0) fL MCH (25.0-34.0) pg MCHC (32.0-36.0) g/dL RDW Std Deviation (36.4-46.3) fL RDW Coeff of Myra (11.5-14.5) % Plt Count (130-400) K/uL MPV (9.4-12.4) fL Immature Gran % (Auto) % Neut % (Auto) % Lymph % (Auto) % [place] % (Auto) % Eos % (Auto) % Baso % (Auto) % Neut # (Auto) (1.40-6.50) K/uL Lymph # (Auto) (1.2-3.4) K/uL [place] # (Auto) (0.11-0.59) K/uL Eos # (Auto) (0-0.50) K/uL Baso # (Auto) (0-0.2) K/uL Immature Gran # (Auto) (0.01-0.20) K/uL Polychromasia Anisocytosis PT (9.0-12.0) Seconds INR (0.9-1.1) APTT (21.0-31.0) Seconds PTT Ratio POC Sodium (135-144) mmol/L Sodium (136-145) mmol/L POC Potassium (3.3-5.0) mmol/L Potassium (3.5-5.1) mmol/L POC Chloride (101-112) mmol/L Chloride (98-107) mmol/L Carbon Dioxide (21-32) mmol/L POC Total CO2 (24-31) mmol/L Anion Gap (3-11) POC Anion Gap (16-25) mmol/L POC BUN (7-18) mg/dl BUN (6-23) mg/dl Creatinine (0.6-1.2) mg/dl POC Creatinine (0.6-1.3) mg/dl Est Cr Clr Drug Dosing Est GFR ( Amer) ml/min Est GFR (Non-Af Amer) ml/min BUN/Creatinine Ratio (10-20) Glucose (70-99(Fasting)) mg/dl POC Glucose (other) (70-99) mg/dl Calcium (8.6-10.3) mg/dl POC Ioniz Calcium Luis (1.12-1.32) mmol/l Total Bilirubin (0.2-1.0) mg/dl AST (13-39) U/L ALT (7-52) U/L Alkaline Phosphatase (34-104) U/L Troponin I High Sens 375.1 H* 421.4 H* (0-14) pg/ml Total Protein (6.0-8.3) gm/dl Albumin (3.4-5.0) gm/dl Globulin (2.5-4.0) gm/dl Albumin/Globulin Ratio (0.9-2) Lipase (11-82) U/L Urine Color Urine Appearance (Clear) Urine pH (4.5-7.5) Ur Specific [place] (1.000-1.030) Urine Protein (Negative) Urine Glucose (UA) (Negative) Urine Ketones (Negative) Urine Blood (Negative) Urine Nitrite (Negative) Urine Bilirubin (Negative) Urine Urobilinogen (Negative) Ur Leukocyte Esterase (Negative) Urine WBC (Auto) (0-5) /hpf Urine RBC (Auto) (0-4) /hpf U Hyaline Cast (Auto) (0-5) /lpf U Epithel Cells (Auto) (0-5) /lpf Urine Bacteria (Auto) (Negative) Nasal Screen MRSA (PCR) (Negative) SARS-CoV-2, RNA, NAAT (NEGATIVE) Blood Type Antibody Screen Crossmatch 05/27/22 05/27/22 05/27/22 Range/Units 10:38 10:31 10:23 WBC (4.8-10.8) K/ul RBC (4.20-5.40) M/uL Hgb (12.0-16.0) g/dl POC Hgb 5.1 L* (12.0-16.0) g/dl Hct (37.0-47.0) % POC Hct 15 L* (37-47) % MCV (80.0-100.0) fL MCH (25.0-34.0) pg MCHC (32.0-36.0) g/dL RDW Std Deviation (36.4-46.3) fL RDW Coeff of Myra (11.5-14.5) % Plt Count (130-400) K/uL MPV (9.4-12.4) fL Immature Gran % (Auto) % Neut % (Auto) % Lymph % (Auto) % [place] % (Auto) % Eos % (Auto) % Baso % (Auto) % Neut # (Auto) (1.40-6.50) K/uL Lymph # (Auto) (1.2-3.4) K/uL [place] # (Auto) (0.11-0.59) K/uL Eos # (Auto) (0-0.50) K/uL Baso # (Auto) (0-0.2) K/uL Immature Gran # (Auto) (0.01-0.20) K/uL Polychromasia Anisocytosis PT (9.0-12.0) Seconds INR (0.9-1.1) APTT (21.0-31.0) Seconds PTT Ratio POC Sodium 138 (135-144) mmol/L Sodium 139 (136-145) mmol/L POC Potassium 4.8 (3.3-5.0) mmol/L Potassium 4.9 (3.5-5.1) mmol/L POC Chloride 98 L (101-112) mmol/L Chloride 102 (98-107) mmol/L Carbon Dioxide 27 (21-32) mmol/L POC Total CO2 24 (24-31) mmol/L Anion Gap 10 (3-11) POC Anion Gap 22.0 (16-25) mmol/L POC BUN 55 H (7-18) mg/dl BUN 59 H (6-23) mg/dl Creatinine 0.75 (0.6-1.2) mg/dl POC Creatinine 0.9 (0.6-1.3) mg/dl Est Cr Clr Drug Dosing Not Reportable Est GFR ( Amer) 92.9 ml/min Est GFR (Non-Af Amer) 80.2 ml/min BUN/Creatinine Ratio 78.7 H (10-20) Glucose 97 (70-99(Fasting)) mg/dl POC Glucose (other) 96 (70-99) mg/dl Calcium 7.8 L (8.6-10.3) mg/dl POC Ioniz Calcium Luis 1.06 L (1.12-1.32) mmol/l Total Bilirubin 0.5 (0.2-1.0) mg/dl AST 110 H (13-39) U/L ALT 65 H (7-52) U/L Alkaline Phosphatase 65 (34-104) U/L Troponin I High Sens 408.8 H* (0-14) pg/ml Total Protein 4.9 L (6.0-8.3) gm/dl Albumin 2.2 L (3.4-5.0) gm/dl Globulin 2.7 (2.5-4.0) gm/dl Albumin/Globulin Ratio 0.8 L (0.9-2) Lipase 54 (11-82) U/L Urine Color Urine Appearance (Clear) Urine pH (4.5-7.5) Ur Specific [place] (1.000-1.030) Urine Protein (Negative) Urine Glucose (UA) (Negative) Urine Ketones (Negative) Urine Blood (Negative) Urine Nitrite (Negative) Urine Bilirubin (Negative) Urine Urobilinogen (Negative) Ur Leukocyte Esterase (Negative) Urine WBC (Auto) (0-5) /hpf Urine RBC (Auto) (0-4) /hpf U Hyaline Cast (Auto) (0-5) /lpf U Epithel Cells (Auto) (0-5) /lpf Urine Bacteria (Auto) (Negative) Nasal Screen MRSA (PCR) (Negative) SARS-CoV-2, RNA, NAAT NEGATIVE (NEGATIVE) Blood Type Antibody Screen Crossmatch 05/27/22 05/27/22 05/27/22 Range/Units 10:23 10:23 10:23 WBC 16.73 H (4.8-10.8) K/ul RBC 1.83 L (4.20-5.40) M/uL Hgb 5.1 L* (12.0-16.0) g/dl POC Hgb (12.0-16.0) g/dl Hct 17.1 L* (37.0-47.0) % POC Hct (37-47) % MCV 93.4 (80.0-100.0) fL MCH 27.9 (25.0-34.0) pg MCHC 29.8 L (32.0-36.0) g/dL RDW Std Deviation 67.8 H (36.4-46.3) fL RDW Coeff of Myra 21.1 H (11.5-14.5) % Plt Count 300 (130-400) K/uL MPV 11.5 (9.4-12.4) fL Immature Gran % (Auto) 1.3 % Neut % (Auto) 84.1 % Lymph % (Auto) 9.3 % [place] % (Auto) 5.1 % Eos % (Auto) 0.1 % Baso % (Auto) 0.1 % Neut # (Auto) 14.07 H (1.40-6.50) K/uL Lymph # (Auto) 1.56 (1.2-3.4) K/uL [place] # (Auto) 0.86 H (0.11-0.59) K/uL Eos # (Auto) 0.01 (0-0.50) K/uL Baso # (Auto) 0.02 (0-0.2) K/uL Immature Gran # (Auto) 0.21 H (0.01-0.20) K/uL Polychromasia 1+ Anisocytosis Present PT 12.4 H (9.0-12.0) Seconds INR 1.2 H (0.9-1.1) APTT 22.9 (21.0-31.0) Seconds PTT Ratio 0.8 POC Sodium (135-144) mmol/L Sodium (136-145) mmol/L POC Potassium (3.3-5.0) mmol/L Potassium (3.5-5.1) mmol/L POC Chloride (101-112) mmol/L Chloride (98-107) mmol/L Carbon Dioxide (21-32) mmol/L POC Total CO2 (24-31) mmol/L Anion Gap (3-11) POC Anion Gap (16-25) mmol/L POC BUN (7-18) mg/dl BUN (6-23) mg/dl Creatinine (0.6-1.2) mg/dl POC Creatinine (0.6-1.3) mg/dl Est Cr Clr Drug Dosing Est GFR ( Amer) ml/min Est GFR (Non-Af Amer) ml/min BUN/Creatinine Ratio (10-20) Glucose (70-99(Fasting)) mg/dl POC Glucose (other) (70-99) mg/dl Calcium (8.6-10.3) mg/dl POC Ioniz Calcium Luis (1.12-1.32) mmol/l Total Bilirubin (0.2-1.0) mg/dl AST (13-39) U/L ALT (7-52) U/L Alkaline Phosphatase (34-104) U/L Troponin I High Sens (0-14) pg/ml Total Protein (6.0-8.3) gm/dl Albumin (3.4-5.0) gm/dl Globulin (2.5-4.0) gm/dl Albumin/Globulin Ratio (0.9-2) Lipase (11-82) U/L Urine Color Urine Appearance (Clear) Urine pH (4.5-7.5) Ur Specific [place] (1.000-1.030) Urine Protein (Negative) Urine Glucose (UA) (Negative) Urine Ketones (Negative) Urine Blood (Negative) Urine Nitrite (Negative) Urine Bilirubin (Negative) Urine Urobilinogen (Negative) Ur Leukocyte Esterase (Negative) Urine WBC (Auto) (0-5) /hpf Urine RBC (Auto) (0-4) /hpf U Hyaline Cast (Auto) (0-5) /lpf U Epithel Cells (Auto) (0-5) /lpf Urine Bacteria (Auto) (Negative) Nasal Screen MRSA (PCR) (Negative) SARS-CoV-2, RNA, NAAT (NEGATIVE) Blood Type A Positive Antibody Screen NEGATIVE Crossmatch See Detail 05/27/22 Range/Units 10:10 WBC (4.8-10.8) K/ul RBC (4.20-5.40) M/uL Hgb (12.0-16.0) g/dl POC Hgb (12.0-16.0) g/dl Hct (37.0-47.0) % POC Hct (37-47) % MCV (80.0-100.0) fL MCH (25.0-34.0) pg MCHC (32.0-36.0) g/dL RDW Std Deviation (36.4-46.3) fL RDW Coeff of Myra (11.5-14.5) % Plt Count (130-400) K/uL MPV (9.4-12.4) fL Immature Gran % (Auto) % Neut % (Auto) % Lymph % (Auto) % [place] % (Auto) % Eos % (Auto) % Baso % (Auto) % Neut # (Auto) (1.40-6.50) K/uL Lymph # (Auto) (1.2-3.4) K/uL [place] # (Auto) (0.11-0.59) K/uL Eos # (Auto) (0-0.50) K/uL Baso # (Auto) (0-0.2) K/uL Immature Gran # (Auto) (0.01-0.20) K/uL Polychromasia Anisocytosis PT (9.0-12.0) Seconds INR (0.9-1.1) APTT (21.0-31.0) Seconds PTT Ratio POC Sodium (135-144) mmol/L Sodium (136-145) mmol/L POC Potassium (3.3-5.0) mmol/L Potassium (3.5-5.1) mmol/L POC Chloride (101-112) mmol/L Chloride (98-107) mmol/L Carbon Dioxide (21-32) mmol/L POC Total CO2 (24-31) mmol/L Anion Gap (3-11) POC Anion Gap (16-25) mmol/L POC BUN (7-18) mg/dl BUN (6-23) mg/dl Creatinine (0.6-1.2) mg/dl POC Creatinine (0.6-1.3) mg/dl Est Cr Clr Drug Dosing Est GFR ( Amer) ml/min Est GFR (Non-Af Amer) ml/min BUN/Creatinine Ratio (10-20) Glucose (70-99(Fasting)) mg/dl POC Glucose (other) (70-99) mg/dl Calcium (8.6-10.3) mg/dl POC Ioniz Calcium Luis (1.12-1.32) mmol/l Total Bilirubin (0.2-1.0) mg/dl AST (13-39) U/L ALT (7-52) U/L Alkaline Phosphatase (34-104) U/L Troponin I High Sens (0-14) pg/ml Total Protein (6.0-8.3) gm/dl Albumin (3.4-5.0) gm/dl Globulin (2.5-4.0) gm/dl Albumin/Globulin Ratio (0.9-2) Lipase (11-82) U/L Urine Color Yellow Urine Appearance Cloudy A (Clear) Urine pH 6.0 (4.5-7.5) Ur Specific [place] 1.019 (1.000-1.030) Urine Protein 1+ H (Negative) Urine Glucose (UA) Negative (Negative) Urine Ketones Negative (Negative) Urine Blood Negative (Negative) Urine Nitrite Negative (Negative) Urine Bilirubin Negative (Negative) Urine Urobilinogen Negative (Negative) Ur Leukocyte Esterase Trace H (Negative) Urine WBC (Auto) 5-10 H (0-5) /hpf Urine RBC (Auto) 0-4 (0-4) /hpf U Hyaline Cast (Auto) 5-10 H (0-5) /lpf U Epithel Cells (Auto) >30 H (0-5) /lpf Urine Bacteria (Auto) Negative (Negative) Nasal Screen MRSA (PCR) (Negative) SARS-CoV-2, RNA, NAAT (NEGATIVE) Blood Type Antibody Screen Crossmatch Diagnostic Findings Abdomen/Pelvis CT 05/27/22 09:47 CT abd pelvis IV con only CLINICAL HISTORY: gi bleed TECHNIQUE: Helical axial images of the abdomen and pelvis were obtained and displayed. Automated dose lowering techniques and/or adjustment according to patient size were utilized for this exam. This exam was performed with intravenous contrast. CT DOSE: 411.75 mGy.cm COMPARISON: Comparison is made to CT abdomen pelvis 12/03/2018 FINDINGS: Lower chest: Peripheral interstitial changes are seen. Cardiomegaly is noted. Liver: Subcentimeter hypodensities in the liver are too small to characterize. Gallbladder and biliary tree: Patient is status post cholecystectomy. No intra- or extrahepatic biliary ductal dilation. Pancreas: Unremarkable, no focal lesions. Spleen: Unremarkable. Adrenals: Unremarkable. Kidneys and ureters: Left renal cyst is seen. Bladder: Soliz catheter is seen. Reproductive organs: Unremarkable. Bowel: Diverticulosis is seen without evidence of diverticulitis. The appendix is unremarkable. There is a small hiatal hernia. Gastrostomy tube is seen in place. Lymph nodes Retroperitoneal: Unremarkable. Pelvic: Unremarkable. Mesenteric: Unremarkable. Peritoneum: Small ascites is seen most prominent in the right upper quadrant. No pneumoperitoneum or drainable fluid collection. Vessels: Atherosclerotic calcifications are seen. Abdominal wall: Unremarkable. Bones: Degenerative changes in the visualized spine. IMPRESSION: 1. No acute abnormalities are seen. There is nonspecific small right upper quadrant ascites. 2. Gastrostomy tube is again seen. Diverticulosis without diverticulitis. 3. There is cardiomegaly and pulmonary fibrotic changes. 4. Additional findings as above. ACT 112: Negative or not required by law. Electronically signed by: Xavier Tavares M.D. 05/27/2022 12:23 PM Chest X-Ray 05/27/22 09:47 XR chest 1V portable CLINICAL HISTORY: gi bleed TECHNIQUE: Single frontal radiograph of the chest was obtained. Comparison: Comparison is made to chest radiograph 05/17/2022 FINDINGS: No lines and tubes are seen. The aorta is tortuous. The remainder of the c ardiomediastinal silhouette is unremarkable. Reticular interstitial opacities are seen. Lungs are underinflated. No evidence of pleural effusion or pneumothorax. IMPRESSION: No acute chest disease. ACT 112: Negative or not required by law. Electronically signed by: Xavier Tavares M.D. 05/27/2022 11:24 AM (1) Anemia Anemia type: unspecified type Qualified Code(s): D64.9 - Anemia, unspecified
--- NOTE | 2022-05-28 10:35 | Hospitalist Progress Note ---
Date of Service May 28, 2022 Assessment & Plan (1) Upper GI bleeding: (2) Hypovolemic shock: (3) Severe anemia: (4) Esophagitis determined by endoscopy: (5) Pulmonary hypertension: (6) History of CVA (cerebrovascular accident): (7) History of seizures: (8) CHF (congestive heart failure): (9) COPD (chronic obstructive pulmonary disease): (10) Interstitial lung disease: Plan This is a 72yo F with a PMH of dysphagia and esophagitis status post PEG placement on 05/18/2022, pulmonary hypertension, CHF, dermatomyositis, ILD, Raynaud's disease, history of CVA, history of seizures, history of tobacco use, polyneuropathy and other medical problems listed below who presents from [facility] vomiting bright blood as well as bright red blood per rectum. Acute GI bleed Hematemesis Esophagitis Severe anemia Hypovolemic shock Recently admitted and had PEG tube placement on 05/19/22, EGD revealing esophagitis, recommended 40mg Protonix BID Taking aspirin/plavix for h/o CVA, also on 20mg prednisone daily course for dermatomyositis Began vomiting blood clots around 0100 1 05/27/2022, [facility] and sent over from [facility] Initialy hypotensive with SBP in 60s, improved to 113/56 following 2L NSS bolus Hgb 5.1, hct 17.1, BUN 59 on arrival She was kept on n.p.o. and Protonix drip was started Received 2 units of PRBC and hemoglobin went up to more than 8 this morning She has been feeling little better and did not have any more hematemesis, ian sea, vomiting or any melena yet Appreciate GI input and recommendation Will update the daughter Elevated troponin HS troponin 408.8 in setting of upper GI bleed. No chest pain or acute ST changes on ECG. Likely demand ischemia. Continue to trend troponin, monitor on tele, repeat ECG in AM Echo from last week showed no LV wall motion abnormality. Ejection fraction 55 to 60% Leukocytosis WBC 16.7k in setting of prednisone use. Will obtain blood cx/urine cx UA seems to be negative Blood cultures pending ILD Recent PNA Follows with Pulm in [place]; Dr. Portillo Recent admission for PNA vs aspiriation pneumonitis treated with abx CXR today with no acute chest disease Dysphagia Due to disease process, 05/19/22 EGD showed esophagitis and PEG tube placed PEG tube site does not know any infection Pulmonary HTN CHF Takes Aldactone and Lasix; hold for now due to hypotension 2/2 bleed Continue monitor closely Not in any fluid overload situation Dermatomyositis Follows with Rheumatology; Dr. Moncada Prescribed CellCept, history of non-compliance in the past Takes Prednisone 20mg daily - will need to clarify dose once no longer NPO Will hold any steroid for today H/O seizures Stable. Continue Keppra H/O CVA H/o CVA in 2020 without residual deficits On Dual antiplatelet therapy (ASA and Plavix) + statin Holding asa/plavix given upper GI bleed May benefit from discussion with neuro about reducing to single antiplatelet given GI bleed, esophagitis GERD Was previously on Protonix but DC due to interfering with CellCept Hypocalcemia Corrected Ca of 9.2 when considering hypoalbuminemia. Replaced in ED. Repeat Ca in AM labs DVT Ppx: SCDs Code status: DNR/DNI PCP: [facility] Dispo: Admitted to PCU Patient seen in collaboration with Dr. Lowery. Please see addendum. Daughter Sol requesting daily updates ([phone], ) A total of 60 minutes spent with the patient, reviewing chart and labs, reviewing medications, discussing with the GI specialist and with the daughter Admission and Anticipated Discharge Date Admission Date: May 27, 2022 Subjective 05/28/2022 The patient was seen and examined in telemetry unit She has been feeling better since admission She denies any abdominal pain, nausea and/or vomiting No hematemesis and/or melena Denies any chest pain or palpitation Review of Systems Review of Systems: All systems reviewed and are unremarkable except as noted below Gastrointestinal: Denies any abdominal discomfort, nausea and or vomiting Physical Exam Physical Exam: Lying in bed comfortably Constitutional: + ill appearing and average body habitus Eyes: PERRL, conjunctivae normal, anicteric sclerae ENMT: external ear and nose normal, oropharynx normal Neck: trachea midline, no thyromegaly Respiratory: no respiratory distress Auscultation: + diminished lung sounds and + crackles (Minimal crackles at the bases) Cardiovascular: Rate/Rhythm: regular rate and regular rhythm; not tachycardic Heart Sounds: normal S1, normal S2 and + murmur Extremities: + edema (Trace edema bilaterally) Gastrointestinal (Abdomen): Inspection/Auscultation: normal bowel sounds; abdomen not distended Percussion/Palpation: + abdomen tender (Minimally tender epigastrium with the PEG tube in situ) and abdomen soft Musculoskeletal: No acute arthritis involving any joint Neurologic: Alert, awake and oriented x3. Generally weak Lymphatic: no cervical or axillary lymphadenopathy Results & Data Results & Data Vital Signs (Past 12 Hours) Vital Signs Temp Pulse Pulse Resp BP Pulse Ox O2 Del Method 05/28/22 07:54 36.4 C L 82 16 121/58 L 95 Room Air 05/28/22 07:25 76 05/28/22 02:33 36.8 C 83 18 140/71 100 Nasal Cannula 05/27/22 23:58 85 05/27/22 23:27 98 Nasal Cannula 05/27/22 23:25 36.6 C 85 17 108/54 L 88 L Room Air O2 Flow Rate 05/28/22 07:54 05/28/22 07:25 05/28/22 02:33 2 05/27/22 23:58 05/27/22 23:27 2 05/27/22 23:25 Laboratory Results Short CBC 05/27/22 05/27/22 05/28/22 Range/Units 10: 18:51 06:35 WBC 16.73 H 8.31 (4.8-10.8) K/ul Hgb 5.1 L* 9.0 L D 8.1 L (12.0-16.0) g/dl Hct 17.1 L* 28.0 L 24.4 L (37.0-47.0) % Plt Count 300 149 D (130-400) K/uL BMP 05/27/22 05/28/22 10:23 06:35 Sodium 139 140 Potassium 4.9 4.3 Chloride 102 109 H Carbon Dioxide 27 28 BUN 59 H 61 H Creatinine 0.75 0.67 Glucose 97 77 Calcium 7.8 L 7.5 L Liver Function 05/27/22 05/28/22 Range/Units 10:23 06:35 Total Bilirubin 0.5 0.4 (0.2-1.0) mg/dl AST 110 H 92 H (13-39) U/L ALT 65 H 57 H (7-52) U/L Alkaline Phosphatase 65 50 (34-104) U/L Albumin 2.2 L 2.1 L (3.4-5.0) gm/dl Urine 05/27/22 Range/Units 10:10 Urine Color Yellow Urine Appearance Cloudy A (Clear) Urine pH 6.0 (4.5-7.5) Ur Specific [place] 1.019 (1.000-1.030) Urine Protein 1+ H (Negative) Urine Glucose (UA) Negative (Negative) Medications Administered Current Inpatient Medications Acetaminophen (Acetaminophen 325 Mg Tab) 650 mg PO Q4H PRN PRN Reason: Pain or Fever Stop: 06/26/22 13:26 Pantoprazole Sodium 40 mg/ (Dextrose) 100 mls @ 20 mls/hr IV Q5H JONATHAN Stop: 06/26/22 10:14 Last Admin: 05/28/22 08:35 Dose: 8 mg/hr, 20 mls/hr Levetiracetam 500 mg/ Sodium (Chloride) 105 mls @ 420 mls/hr IV Q12H JONATHAN Stop: 06/26/22 15:14 Last Infusion: 05/28/22 02:46 Dose: Infused Ondansetron HCl (Ondansetron Inj 2 Mg/Ml 2 Ml Vial) 4 mg IV Q6H PRN PRN Reason: Nausea Stop: 06/26/22 13:26 Polyethylene Glycol (Polyethylene (Miralax) 17 Gm Pack) 17 gm PO DAILY PRN PRN Reason: Constipation Stop: 06/26/22 13:26 (8) CHF (congestive heart failure) Heart failure chronicity: acute Heart failure type: unspecified Qualified Code(s): I50.9 - Heart failure, unspecified
[2022-05-28] MEDS ORDERED: ZOLPIDEM TARTRATE 5 MG TAB PO STA (21:04)
[2022-05-28] MEDS ORDERED: PIPERACILLIN/TAZOBACTAM 4.5 GM (over 30 mins) IV ONE (21:15)
[2022-05-28] MEDS: cefTRIAXone SODIUM 1,000 MG in DEXTROSE 5% AD-VAN 50 ML IV SCH (21:54)
[2022-05-29] MEDS: PANTOprazole 40 MG in DEXTROSE 5% 100 ML IV SCH ×3 (00:36→13:54)
[2022-05-29] MEDS: levETIRAcetam 500 MG in 0.9 % SODIUM CHLORIDE 100 ML IV SCH (03:09)
[2022-05-29] MEDS ORDERED: PIPERACILLIN/TAZOBACTAM 3.375 GM in DEXTROSE 5% 100 ML IV SCH (04:00)
[2022-05-29 06:00] LABS: Hematocrit (blood only) 26.2 % (37.0-47.0); Hemoglobin 8.3 g/dl (12.0-16.0); Mean Corpuscular Hemoglobin 29.9 pg (25.0-34.0); Mean Corpuscular Hgb Conc 31.7 g/dL (32.0-36.0); Mean Corpuscular Volume 94.2 fL (80.0-100.0); Mean Platelet Volume 11.2 fL (9.4-12.4); Platelet Count 151 K/uL (130-400); RDW Coefficient of Variation 17.7 % (11.5-14.5); RDW Standard Deviation 57.6 fL (36.4-46.3); Red Blood Count 2.78 M/uL (4.20-5.40); White Blood Count 8.58 K/ul (4.8-10.8)
[2022-05-29 06:20] LABS: Albumin Globulin Ratio 0.8 (0.9-2); Albumin Level 2.1 gm/dl (3.4-5.0); BUN Creatinine Ratio 75.4 (10-20); Bilirubin,Total 0.4 mg/dl (0.2-1.0); Calcium 7.6 mg/dl (8.6-10.3); Est GFR (African American) 105.7 ml/min; Est GFR (Non-African American) 91.2 ml/min; Globulin 2.6 gm/dl (2.5-4.0); Total Protein 4.7 gm/dl (6.0-8.3)
[2022-05-29] MEDS ORDERED: DEXTROSE 50% 50 ML SYRINGE IV STA (06:31)
[2022-05-29] MEDS ORDERED: DEXTROSE 50% 50 ML SYRINGE IV ONE (06:32)
[2022-05-29] MEDS: D5W AND NSS 1,000 ML IV SCH ×2 (06:39→21:07)
--- NOTE | 2022-05-29 08:40 | Anesthesiology Consultation ---
Date of Service May 29, 2022 Assessment & Plan (1) Encounter for pre-operative examination: Chart Review Chart Review: Acceptable Risk for Surgery, Patient NOT seen in Pre Admission Testing and entry level staff accountant initiated Consults Requested none History Surgery Operation Date: 05/29/22 17:15 Proposed Procedures p Esophagogastroduodenoscopy Dr Abbe Mcadams, DO Height/Weight Height: 5 ft 3 in Weight: 61.2 kg Allergies Allergy/AdvReac Type Severity Reaction Status Date / Time No Known Allergies Allergy Verified 05/29/22 09:05 Medications Home Medications Medication Instructions Recorded Confirmed Last Taken doxepin 50 mg capsule 50 - 150 mg PO HS PRN Sleep 12/03/18 05/27/22 Unknown gabapentin 100 mg capsule 100 mg PO TID 12/03/18 05/27/22 08/26/20 mycophenolate mofetil 500 mg tablet 1,000 mg PO BID 12/03/18 05/27/22 08/26/20 aspirin 81 mg tablet,delayed 81 mg PO QAM #90 tabs 08/30/20 05/27/22 Unknown release atorvastatin 40 mg tablet 40 mg PO QAM #30 tabs 08/30/20 05/27/22 Unknown clopidogrel 75 mg tablet (Plavix) 75 mg PO DAILY #30 tabs 08/30/20 05/27/22 Unknown levetiracetam 500 mg tablet 500 mg PO BID #60 tabs 08/30/20 05/27/22 Unknown (Keppra) furosemide 20 mg tablet (Lasix) 20 mg 3XWK 05/08/22 05/27/22 Unknown potassium 20 mg chewable tablet 10 mg PO 3XWK 05/08/22 05/27/22 Unknown spironolactone 25 mg tablet 25 mg PO DAILY 05/08/22 05/27/22 Unknown (Aldactone) nutrition [id number]-fiber 1 ea G-tube UD 30 days #30 BTLS 05/23/22 05/27/22 Unknown 0.05 gram-1.2 kcal/mL tube feed liquid (Fibersource HN) pantoprazole 40 mg tablet,delayed 40 mg PO QAM #30 tabs 05/23/22 05/27/22 Unknown release prednisone 20 mg tablet 20 mg NG DAILY #30 tabs 05/23/22 05/27/22 Unknown pantoprazole 40 mg tablet,delayed 40 mg PO BID 05/27/22 05/27/22 Unknown release (Protonix) Active Medications Generic Name Dose Route Start Last Admin Trade Name Una PRN Reason Stop Dose Admin Pantoprazole Sodium 40 mg/ 100 mls @ 20 mls/hr 05/27/22 10:15 05/29/22 05:36 Dextrose IV 06/26/22 10:14 8 mg/hr Q5H JONATHAN 20 mls/hr Administration 8 MG/HR Levetiracetam 500 mg/ Sodium 105 mls @ 420 mls/hr 05/27/22 15:15 05/29/22 03:21 Chloride IV 06/26/22 15:14 Infused Q12H JONATHAN Infusion Ceftriaxone Sodium 1,000 mg/ 50 mls @ 100 mls/hr 05/28/22 22:00 05/28/22 22:16 Dextrose IV 06/04/22 21:44 Infused Q24H JONATHAN Infusion Protocol Dextrose/Sodium Chloride 1,000 mls @ 75 mls/hr 05/29/22 06:45 05/29/22 06:39 D5w And Nss IV 06/28/22 06:44 75 mls/hr .[id number] JONATHAN Administration Past Medical History Medical History (Updated 05/29/22 @ 08:43 by Avery Ortiz MD) Acute dyspnea Acute metabolic encephalopathy Acute respiratory failure with hypoxia Anemia Aspiration pneumonia DVT prophylaxis Elevated troponin Encounter for pre-operative examination History of CVA (cerebrovascular accident) History of seizures Pneumonia Pulmonary hypertension Shortness of breath UTI (urinary tract infection) Weakness Past Family History Family History Other Cancer Heart disease Past Surgical History Surgical History History of hysterectomy Social History Smoking Status: Former smoker tobacco type: cigarettes Smoking End Date: 2016, 30 pack years Hx Alcohol Use: No Hx Substance Use: No Physical Exam Vital Signs Last Vital Signs Temp 36.6 C 05/29/22 08:59 Pulse 85 05/29/22 08:59 Resp 18 05/29/22 08:59 BP 148/62 H 05/29/22 08:59 Pulse Ox 97 05/29/22 08:59 O2 Del Method Room Air 05/29/22 08:59 O2 Flow Rate 2 05/28/22 02:33 Testing Laboratory Results 05/29/22 05:33 05/29/22 05:33 PT 12.4 Seconds (9.0-12.0) H 05/27/22 10:23 INR 1.2 (0.9-1.1) H 05/27/22 10:23 APTT 22.9 Seconds (21.0-31.0) 05/27/22 10:23 Urine Color Yellow 05/27/22 10:10 Urine Appearance Cloudy (Clear) A 05/27/22 10:10 Urine pH 6.0 (4.5-7.5) 05/27/22 10:10 Ur Specific [place] 1.019 (1.000-1.030) 05/27/22 10:10 Urine Protein 1+ (Negative) H 05/27/22 10:10 Urine Glucose (UA) Negative (Negative) 05/27/22 10:10 Urine Ketones Negative (Negative) 05/27/22 10:10 Urine Nitrite Negative (Negative) 05/27/22 10:10 Ur Leukocyte Esterase Trace (Negative) H 05/27/22 10:10 Urine WBC (Auto) 5-10 /hpf (0-5) H 05/27/22 10:10 Urine RBC (Auto) 0-4 /hpf (0-4) 05/27/22 10:10 U Hyaline Cast (Auto) 5-10 /lpf (0-5) H 05/27/22 10:10 U Epithel Cells (Auto) >30 /lpf (0-5) H 05/27/22 10:10 Urine Bacteria (Auto) Negative (Negative) 05/27/22 10:10 Blood Type A Positive 05/27/22 10:23 Antibody Screen NEGATIVE 05/27/22 10:23 05/28/22 21:25 Gram Stain - Final Abdomen, Left Upper Quadrant 05/27/22 18:51 Aerobic Blood Culture - Preliminary Blood No growth in Aerobic bottle after 24 hours. Anaerobic Blood Culture - Final 05/27/22 18:39 Aerobic Blood Culture - Preliminary Blood No growth in Aerobic bottle after 24 hours. Anaerobic Blood Culture - Preliminary No growth in Anaerobic bottle after 24 hours. 05/29/22 06:50 POC Glucose 107 H Electrocardiogram Date: 05/28/22 Test Reason : Blood Pressure : / mmHG Vent. Rate : 084 BPM Atrial Rate : 084 BPM P-R Int : 168 ms QRS Dur : 094 ms QT Int : 380 ms P-R-T Axes : 045 -33 046 degrees QTc Int : 449 ms Sinus rhythm with Premature supraventricular complexes Left ventricular hypertrophy with repolarization abnormality Abnormal ECG When compared with ECG of 27-MAY-2022 09:55, Premature supraventricular complexes are now Present Confirmed by Horacio Leggett ([id number]) on 05/28/2022 8:18:25 AM Chest X-Ray Date: 05/27/22 XR chest 1V portable CLINICAL HISTORY: gi bleed TECHNIQUE: Single frontal radiograph of the chest was obtained. Comparison: Comparison is made to chest radiograph 05/17/2022 FINDINGS: No lines and tubes are seen. The aorta is tortuous. The remainder of the cardiomediastinal silhouette is unremarkable. Reticular interstitial opacities are seen. Lungs are underinflated. No evidence of pleural effusion or pneumothorax. IMPRESSION: No acute chest disease. Echocardiogram Date: 05/08/22 EF: 55-60% LV Function: normal RWMA: + none Other Findings: + LVH (mild) Valvular Disease: + AI (trace) and + MR (trace)
[2022-05-29] MEDS ORDERED: GLYCOPYRROLATE 0.2 MG/ML VIAL ONE (08:47)
[2022-05-29] MEDS ORDERED: ONDANSETRON INJ 2 MG/ML 2 ML VIAL ONE (08:47)
[2022-05-29] MEDS ORDERED: LIDOCAINE 2% MPF LOCAL 5 ML VIAL ONE (08:47)
[2022-05-29] MEDS ORDERED: PROPOFOL IV EMULSION 10 MG/ML 20 ML VIAL IV ONE (08:47)
--- NOTE | 2022-05-29 08:53 | History & Physical Bridge Note ---
Date of Service May 29, 2022 History & Physical Bridge Note I have examined the patient, reviewed the History & Physical and in the interval since the performance of the History & Physical I have noted the following changes of clinical significance: no changes noted. The patient was seen over the weekend for question of worsening anemia in the setting of coffee-ground emesis. Given that the drop in hemoglobin and hematocrit it may be reasonable to proceed with a repeat upper endoscopy, the patient did have severe esophagitis noted during her examination 2 weeks ago, I wonder if this is the etiology to her anemia in addition to ongoing use of antiplatelet agents. Plan Upper endoscopy
--- NOTE | 2022-05-29 09:42 | GI REPORT ---
Patient Name: Rochelle Chowdary Procedure Date: 05/29/2022 9:05 AM Date of : 1950 Admit Type: Inpatient Age: 72 Gender: Female Attending MD: Johnnie Mcadams DO, Procedure: Upper GI endoscopy Providers: Johnnie Mcadams DO Referring MD: Alfreda Cruz Indications: Coffee-ground emesis Medicines: Monitored Anesthesia Care Complications: No immediate complications. Estimated blood loss: Minimal. Estimated Blood Loss: Estimated blood loss was minimal. Procedure: Pre-Anesthesia Assessment: - Prior to the procedure, a History and Physical was performed, and patient medications, allergies and sensitivities were reviewed. The patient's tolerance of previous anesthesia was reviewed. - The risks and benefits of the procedure and the sedation options and risks were discussed with the patient. All questions were answered and informed consent was obtained. - Patient identification and proposed procedure were verified prior to the procedure by the physician, the nurse and the supervisor inspection and testing. The procedure was verified in the procedure room. - Pre-procedure physical examination revealed no contraindications to sedation. - ASA Grade Assessment: III - A patient with severe systemic disease. - After reviewing the risks and benefits, the patient was deemed in satisfactory condition to undergo the procedure. - The anesthesia plan was to use monitored anesthesia care (MAC). - Immediately prior to administration of medications, the patient was re-assessed for adequacy to receive sedatives. - The heart rate, respiratory rate, oxygen saturations, blood pressure, adequacy of pulmonary ventilation, and response to care were monitored throughout the procedure. - The physical status of the patient was re-assessed after the procedure. After obtaining informed consent, the endoscope was passed under direct vision. Throughout the procedure, the patient's blood pressure, pulse, and oxygen saturations were monitored continuously. The Scope was introduced through the mouth, and advanced to the third part of duodenum. The upper GI endoscopy was accomplished without difficulty. The patient tolerated the procedure well. Findings: LA Grade B (one or more mucosal breaks greater than 5 mm, not extending between the tops of two mucosal folds) esophagitis and nodularity with no bleeding was found 31 to 35 cm from the incisors. Biopsies were taken with a cold forceps for histology. The pathology specimen was placed into Bottle A. Estimated blood loss was minimal. A medium-sized hiatal hernia was found. The proximal extent of the gastric folds (end of tubular esophagus) was 35 cm from the incisors. The hiatal narrowing was 38 cm from the incisors. The Z-line was 30 cm from the incisors. There was evidence of an intact gastrostomy with a patent G-tube present in the gastric antrum. This was characterized by healthy appearing mucosa. The examined duodenum was normal. Impression: - LA Grade B esophagitis and nodularity of the esophagus with no active bleeding. Biopsied. - Medium-sized hiatal hernia. - Intact gastrostomy with a patent G-tube present characterized by healthy appearing mucosa. - Normal examined duodenum. Recommendation: - Use Protonix (pantoprazole) 40 mg PO daily. - Use sucralfate suspension 1 gram PO QID for 4 weeks. - Await pathology results. - Please call with questions Johnnie Mcadams D.O. Johnnie Mcadams DO 05/29/2022 9:41:12 AM This report has been signed electronically. Note Initiated On: 05/29/2022 9:05 AM Number of Addenda: 0 I attest to the content of the Intraoperative Record and orders documented therein, exceptions below {[id number]}
--- NOTE | 2022-05-29 09:43 | Communication Note ---
Date of Service: May 29, 2022 Patient underwent upper endoscopy today for question of coffee-ground emesis. She was found to have a hiatal hernia and evidence of esophagitis and nodularity of the distal esophagus. No active bleeding was noted. The feeding tube that had been placed 2 weeks ago appears to be intact without evidence of ulceration. Patient's presentation was likely related to a combination of antiplatelet agents. Recommendations Protonix 40 mg daily indefinitely Carafate slurry 4 times daily for 1 month Await pathology results Consider use of an iron supplement or perhaps intravenous iron to help rebuild blood count Please call with any questions or concerns, GI to sign off
[2022-05-29] MEDS ORDERED: PANTOprazole 40 MG TAB PO SCH (10:00)
[2022-05-29] MEDS ORDERED: FIBERSOURCE HN 1.2 CAL 1000 ML BAG GT SCH (11:00)
--- NOTE | 2022-05-29 11:01 | Anesthesiology Progress Note ---
Date of Service May 29, 2022 Anesthesia Post Procedure Vital Signs Vital Signs: Temp Pulse Pulse Pulse Resp BP Pulse Ox 05/29/22 10:23 36.4 C L 77 18 131/66 05/29/22 10:07 80 18 123/75 99 05/29/22 09:52 78 18 118/67 95 05/29/22 09:37 78 18 140/62 98 05/29/22 08:59 36.6 C 85 18 148/62 H 97 05/29/22 07:30 36.9 C 80 20 118/61 99 05/29/22 07:00 81 05/29/22 02:47 36.6 C 83 18 130/68 96 05/28/22 23:31 36.6 C 96 H 16 153/68 H 100 05/28/22 23:21 36.5 C 83 17 153/68 H 100 05/28/22 23:15 84 05/28/22 20:11 36.4 C L 84 19 143/65 H 98 05/28/22 15:34 36.4 C L 84 18 143/60 H 100 05/28/22 15:16 79 O2 Del Method 05/29/22 10:23 Room Air 05/29/22 10:07 Room Air 05/29/22 09:52 Room Air 05/29/22 09:37 Room Air 05/29/22 08:59 Room Air 05/29/22 07:30 Room Air 05/29/22 07:00 05/29/22 02:47 Room Air 05/28/22 23:31 Room Air 05/28/22 23:21 Room Air 05/28/22 23:15 05/28/22 20:11 Room Air 05/28/22 15:34 Room Air 05/28/22 15:16 Transfer of Care Handoff Completed per policy Notes Mental Status: alert / awake / arousable and participated in evaluation Patient Amnestic to Procedure: Yes Nausea / Vomiting: adequately controlled Pain: adequately controlled Airway Patency, RR, SpO2: stable & adequate BP & HR: stable & adequate Hydration State: stable & adequate Anesthetic Complications: no major complications apparent and Pt Satisfied with anesthetic care
[2022-05-29] MEDS ORDERED: DOXEPIN HCL 50 MG CAPSULE PEG PRN (11:39)
[2022-05-29] MEDS ORDERED: POLYETHYLENE (MIRALAX) 17 GM PACK PEG PRN (11:47)
[2022-05-29 12:20] LABS: Hematocrit (blood only) 26.6 % (37.0-47.0); Hemoglobin 8.4 g/dl (12.0-16.0)
[2022-05-29] MEDS ORDERED: SUCRALFATE 1 GM/10 ML UDC PO SCH (13:00)
[2022-05-29] MEDS ORDERED: SUCRALFATE 1 GM/10 ML UDC PEG SCH (13:00)
[2022-05-29] MEDS: SUCRALFATE 1 GM/10 ML UDC PEG SCH ×3 (13:25→21:08)
[2022-05-29] MEDS: TUBE FEEDING WATER FLUSH GT SCH ×3 (13:25→17:51)
[2022-05-29] MEDS: POTASSIUM CHLORIDE 20MEQ/15ML 473ML PO SCH (13:25)
[2022-05-29] MEDS: GABAPENTIN 250 MG/5 ML 470 ML BTL PEG SCH ×2 (13:26→21:08)
[2022-05-29] MEDS: FIBERSOURCE HN 1.2 CAL 1000 ML BAG GT SCH (13:26)
[2022-05-29] MEDS ORDERED: GABAPENTIN 100 MG CAP PO SCH (14:00)
[2022-05-29] MEDS ORDERED: GABAPENTIN 250 MG/5 ML 470 ML BTL PO SCH (14:00)
--- NOTE | 2022-05-29 15:39 | Hospitalist Progress Note ---
Date of Service May 29, 2022 Assessment & Plan (1) Upper GI bleeding: (2) Hypovolemic shock: (3) Severe anemia: (4) Esophagitis determined by endoscopy: (5) Pulmonary hypertension: (6) History of CVA (cerebrovascular accident): (7) History of seizures: (8) CHF (congestive heart failure): (9) COPD (chronic obstructive pulmonary disease): (10) Interstitial lung disease: Plan This is a 72yo F with a PMH of dysphagia and esophagitis status post PEG placement on 05/18/2022, pulmonary hypertension, CHF, dermatomyositis, ILD, Raynaud's disease, history of CVA, history of seizures, history of tobacco use, polyneuropathy and other medical problems listed below who presents from [facility] vomiting bright blood as well as bright red blood per rectum. Acute GI bleed Hematemesis Esophagitis Severe anemia Hypovolemic shock Recently admitted and had PEG tube placement on 05/19/22, EGD revealing esophagitis, recommended 40mg Protonix BID Taking aspirin/plavix for h/o CVA, also on 20mg prednisone daily course for dermatomyositis Began vomiting blood clots around 0100 1 05/27/2022, [facility] and sent over from [facility] Initialy hypotensive with SBP in 60s, improved to 113/56 following 2L NSS bolus Hgb 5.1, hct 17.1, BUN 59 on arrival She was kept on n.p.o. and Protonix drip was started Received 2 units of PRBC and hemoglobin went up to more than 8 this morning She has been feeling little better and did not have any more hematemesis, ian sea, vomiting or any melena yet Appreciate GI input and recommendation Status post EGD-showed LA grade B esophagitis and nodularity of the esophagus with no active bleeding. The site was biopsied and medications with Protonix and sucralfate started Discussed with the daughter in detail and updated about the EGD findings and subsequent management Elevated troponin HS troponin 408.8 in setting of upper GI bleed. No chest pain or acute ST changes on ECG. Likely demand ischemia. Continue to trend troponin, monitor on tele, repeat ECG in AM Echo from last week showed no LV wall motion abnormality. Ejection fraction 55 to 60% Leukocytosis Infection at the site of the PEG insertion WBC 16.7k in setting of prednisone use. Will obtain blood cx/urine cx UA seems to be negative Blood cultures pending-negative Culture from the wound at the PEG insertion site is growing gram-negative bacilli ILD Recent PNA Follows with Pulm in [place]; Dr. Portillo Recent admission for PNA vs aspiriation pneumonitis treated with abx CXR today with no acute chest disease His prednisone and CellCept have been restarted Dysphagia Due to disease process, 05/19/22 EGD showed esophagitis and PEG tube placed PEG tube site does not know any infection Pulmonary HTN CHF Takes Aldactone and Lasix; hold for now due to hypotension 2/2 bleed Continue monitor closely Not in any fluid overload situation Dermatomyositis Follows with Rheumatology; Dr. Moncada Prescribed CellCept, history of non-compliance in the past Takes Prednisone 20mg daily - will need to clarify dose once no longer NPO CellCept and prednisone have been restarted H/O seizures Stable. Continue Keppra H/O CVA H/o CVA in 2020 without residual deficits On Dual antiplatelet therapy (ASA and Plavix) + statin Holding asa/plavix given upper GI bleed May benefit from discussion with neuro about reducing to single antiplatelet given GI bleed, esophagitis She has been on aspirin and Plavix prescribed by the zigzag topstitcher-Will discuss with the zigzag topstitcher tomorrow for possible withdrawal of these medications GERD Was previously on Protonix but DC due to interfering with CellCept Hypocalcemia Corrected Ca of 9.2 when considering hypoalbuminemia. Replaced in ED. Repeat Ca in AM labs DVT Ppx: SCDs Code status: DNR/DNI PCP: [facility] Dispo: Admitted to PCU Patient seen in collaboration with Dr. Lowery. Please see addendum. Daughter Sol requesting daily updates ([phone], ) A total of 60 minutes spent with the patient, reviewing chart and labs, reviewing medications, discussing with the GI specialist and with the daughter Admission and Anticipated Discharge Date Admission Date: May 27, 2022 Subjective 05/28/2022 The patient was seen and examined in telemetry unit She has been feeling better since admission She denies any abdominal pain, nausea and/or vomiting No hematemesis and/or melena Denies any chest pain or palpitation 05/29/2022 The patient was seen and examined in telemetry unit She is a status post EGD which showed grade B esophagitis without any acute bleeding She has been feeling much better Her outpatient medications were restarted except aspirin and Plavix Review of Systems Review of Systems: All systems reviewed and are unremarkable except as noted below Physical Exam Physical Exam: Lying in bed comfortably Constitutional: + ill appearing and average body habitus Eyes: PERRL, conjunctivae normal, anicteric sclerae ENMT: external ear and nose normal, oropharynx normal Neck: trachea midline, no thyromegaly Respiratory: no respiratory distress Auscultation: + diminished lung sounds and + crackles (Minimal crackles at the bases) Cardiovascular: Rate/Rhythm: regular rate and regular rhythm; not tachycardic Heart Sounds: normal S1, normal S2 and + murmur Extremities: + edema (Trace edema bilaterally) Gastrointestinal (Abdomen): Inspection/Auscultation: normal bowel sounds; abdomen not distended Percussion/Palpation: + abdomen tender (Minimally tender epigastrium with the PEG tube in situ) and abdomen soft PEG insertion site is infected and the culture grew gram-negative bacilli from there Musculoskeletal: No acute arthritis involving any of the joint Neurologic: Alert, awake and oriented x3 Lymphatic: no cervical or axillary lymphadenopathy Results & Data Results & Data Vital Signs (Past 12 Hours) Vital Signs Temp Pulse Pulse Pulse Resp BP Pulse Ox 05/29/22 15:03 78 05/29/22 11:26 36.6 C 77 24 109/63 99 05/29/22 10:23 36.4 C L 77 18 131/66 05/29/22 10:07 80 18 123/75 99 05/29/22 09:52 78 18 118/67 95 05/29/22 09:37 78 18 140/62 98 05/29/22 08:59 36.6 C 85 18 148/62 H 97 05/29/22 07:30 36.9 C 80 20 118/61 99 05/29/22 07:00 81 O2 Del Method 05/29/22 15:03 05/29/22 11:26 Room Air 05/29/22 10:23 Room Air 05/29/22 10:07 Room Air 05/29/22 09:52 Room Air 05/29/22 09:37 Room Air 05/29/22 08:59 Room Air 05/29/22 07:30 Room Air 05/29/22 07:00 Laboratory Results Short CBC 05/29/22 05/29/22 Range/Units 05:33 11:21 WBC 8.58 (4.8-10.8) K/ul Hgb 8.3 L 8.4 L (12.0-16.0) g/dl Hct 26.2 L 26.6 L (37.0-47.0) % Plt Count 151 (130-400) K/uL BMP 05/29/22 05:33 Sodium 139 Potassium 4.0 Chloride 108 H Carbon Dioxide 26 BUN 46 H Creatinine 0.61 Glucose 68 L Calcium 7.6 L Liver Function 05/29/22 Range/Units 05:33 Total Bilirubin 0.4 (0.2-1.0) mg/dl AST 131 H (13-39) U/L ALT 70 H (7-52) U/L Alkaline Phosphatase 51 (34-104) U/L Albumin 2.1 L (3.4-5.0) gm/dl Medications Administered Current Inpatient Medications Acetaminophen (Acetaminophen 325 Mg Tab) 650 mg PO Q4H PRN PRN Reason: Pain or Fever Stop: 06/26/22 13:26 Atorvastatin Calcium (Atorvastatin 40 Mg Tab) 40 mg PEG QAM JONATHAN Stop: 06/29/22 08:59 Doxepin HCl (Doxepin Hcl 50 Mg Capsule) 100 mg PEG HS PRN PRN Reason: Sleep Stop: 06/28/22 11:38 Enteral Nutritional Formula (Fibersource Hn 1.2 Ismael 1000 Ml Bag) 1,000 ml GT UD JONATHAN; Protocol Stop: 06/28/22 12:25 Last Admin: 05/29/22 13:26 Dose: 1,000 ml Gabapentin (Gabapentin 250 Mg/5 Ml 470 Ml Btl) 100 mg PEG TID JONATHAN Stop: 06/28/22 13:59 Last Admin: 05/29/22 13:26 Dose: 100 mg Ceftriaxone Sodium 1,000 mg/ (Dextrose) 50 mls @ 100 mls/hr IV Q24H JONATHAN; Protocol Stop: 06/04/22 21:44 Last Infusion: 05/28/22 22:16 Dose: Infused Dextrose/Sodium Chloride (D5w And Nss) 1,000 mls @ 75 mls/hr IV .[id number] JONATHAN Stop: 06/28/22 06:44 Last Admin: 05/29/22 06:39 Dose: 75 mls/hr Levetiracetam (Levetiracetam Soln 500 Mg/5 Ml Udp) 500 mg PEG BID JONATHAN Stop: 06/28/22 20:59 Mycophenolate Mofetil (Mycophenolate Susp 200 Mg/1 Ml) 1,000 mg PEG BID JONATHAN Stop: 06/28/22 20:59 Ondansetron HCl (Ondansetron Inj 2 Mg/Ml 2 Ml Vial) 4 mg IV Q6H PRN PRN Reason: Nausea Stop: 06/26/22 13:26 Pantoprazole Sodium (Pantoprazole 40 Mg Tab) 40 mg PEG BID [facility] Stop: 06/28/22 20:59 Polyethylene Glycol (Polyethylene (Miralax) 17 Gm Pack) 17 gm PEG DAILY PRN PRN Reason: Constipation Stop: 06/26/22 13:26 Potassium Chloride (Potassium Chloride 20meq/15ml 473ml) 10 meq PO [id number] JONATHAN Stop: 06/28/22 12:59 Last Admin: 05/29/22 13:25 Dose: 10 meq Prednisone (Prednisone 20 Mg Tab) 20 mg NG DAILY JONATHAN Stop: 06/29/22 08:59 Spironolactone (Spironolactone 25 Mg Tab) 25 mg PEG DAILY JONATHAN Stop: 06/29/22 08:59 Sterile Water (Tube Feeding Water Flush) 100 ml GT Q6H JONATHAN Stop: 06/28/22 12:29 Last Admin: 05/29/22 13:51 Dose: 100 ml Sucralfate (Sucralfate 1 Gm/10 Ml Udc) 1 gm PEG QID JONATHAN Stop: 06/28/22 12:59 Last Admin: 05/29/22 13:25 Dose: 1 gm (8) CHF (congestive heart failure) Heart failure chronicity: acute Heart failure type: unspecified Qualified Code(s): I50.9 - Heart failure, unspecified
[2022-05-29] MEDS ORDERED: levETIRAcetam 500 MG TAB PO SCH (21:00)
[2022-05-29] MEDS ORDERED: PANTOprazole 40 MG TAB PEG SCH (21:00)
[2022-05-29] MEDS: MYCOPHENOLATE SUSP 200 MG/1 ML PEG SCH (21:11)
[2022-05-29] MEDS: PANTOprazole 40 MG TAB PEG SCH (21:38)
[2022-05-29] MEDS: cefTRIAXone SODIUM 1,000 MG in DEXTROSE 5% AD-VAN 50 ML IV SCH (21:41)
[2022-05-30] MEDS: TUBE FEEDING WATER FLUSH GT SCH ×4 (00:30→18:24)
[2022-05-30] MEDS: D5W AND NSS 1,000 ML IV SCH ×2 (08:04→20:14)
[2022-05-30 08:10] LABS: Basophils # (auto) 0.04 K/uL (0-0.2); Basophils % (auto) 0.5 %; Eosinophils # (auto) 0.14 K/uL (0-0.50); Eosinophils % (auto) 1.7 %; Hematocrit (blood only) 26.9 % (37.0-47.0); Hemoglobin 8.3 g/dl (12.0-16.0); Immature Granulocytes # (auto) 0.04 K/uL (0.01-0.20); Immature Granulocytes % (auto) 0.5 %; Lymphocytes # (auto) 0.41 K/uL (1.2-3.4); Mean Corpuscular Hgb Conc 30.9 g/dL (32.0-36.0); Mean Corpuscular Volume 97.1 fL (80.0-100.0); Mean Platelet Volume 11.7 fL (9.4-12.4); Monocytes # (auto) 0.27 K/uL (0.11-0.59); Monocytes % (auto) 3.3 %; Neutrophils # (auto) 7.26 K/uL (1.40-6.50); Platelet Count 162 K/uL (130-400); RDW Coefficient of Variation 19.4 % (11.5-14.5); RDW Standard Deviation 61.7 fL (36.4-46.3); Red Blood Count 2.77 M/uL (4.20-5.40); White Blood Count 8.16 K/ul (4.8-10.8)
[2022-05-30 08:28] LABS: BUN Creatinine Ratio 52.6 (10-20); Calcium 7.2 mg/dl (8.6-10.3); Creatinine Clr Calc Pharmacy 74.9 ml/min; Est GFR (African American) 108.1 ml/min; Est GFR (Non-African American) 93.3 ml/min; Potassium 3.5 mmol/L (3.5-5.1)
[2022-05-30] MEDS: ATORVASTATIN 40 MG TAB PEG SCH (09:06)
[2022-05-30] MEDS: GABAPENTIN 250 MG/5 ML 470 ML BTL PEG SCH ×3 (09:07→20:58)
[2022-05-30] MEDS: MYCOPHENOLATE SUSP 200 MG/1 ML PEG SCH ×2 (09:08→20:58)
[2022-05-30] MEDS: SPIRONOLACTONE 25 MG TAB PEG SCH (09:08)
[2022-05-30] MEDS: predniSONE 20 MG TAB NG SCH (09:08)
[2022-05-30] MEDS: SUCRALFATE 1 GM/10 ML UDC PEG SCH ×4 (09:09→20:11)
--- NOTE | 2022-05-30 09:14 | Palliative Care Consultation ---
Date of Consultation May 30, 2022 Assessment & Plan (1) Palliative care by specialist: Met with pt. Provided overview of Palliative Medicine, a subspecialty that provides specialized medical care for people living with a serious illness by offering a focus on quality of life. Palliative Medicine is often conflated with hospice: I advised patient/family that Palliative and hospice can be partners but we are not the same. It is important to understand the difference so that we may be informed, and not afraid. Palliative Medicine works to improve QOL through reduction of symptom burden/more control over their illness, for both the patient and family. Palliative medicine clinicians are board certified, s pecially-trained and another member of the patient's medical care team. We often provide an extra layer of support because our care is based on the needs of the patient, not the prognosis; as such, it's appropriate at any age/advancing stage of a serious illness and can be provided along with curative treatment. Palliative Medicine clinicians are also trained in advanced communication methodologies, to facilitate complex discussions about advanced illness planning, which are needed to help assure that the treatment choices match the patient's goals, aka delivering Goal Concordant care. Finally, we discussed that hospice is a visiting nurse service that focuses on care delivered at the very end of life for patients with terminal illness, with life expectancy less than 6 month. (2) Advanced care planning/counseling discussion: I had a 60 min face to face ACP meeting with pt: Rochelle shares that her goal is to recover strength at rehab, continue PEG feeds and return home. She wants more education for managing her PEG chino learning how to adjust to "normal" life with a PEG in re wardrobe choices, bathing, hooking up to feeds, etc. Encouraged her to pay attention to what the nurses are doing when they come to see her/provide PEG care. She tells me she wants to go back home, resume her normal life. She wants to be able to take PO, tells me very clearly and repeatedly how much pleasure and enjoyment she derives from eating. She states "When I smelled the chicken they were delivering for lunch today, it took all my self control not to walk out there and just lick a piece of chicken! I'm starving." She understands her dysphagia would prohibit her from adequately taking PO nutrition but she feels she should be allowed to just eat and drink for pleasure. We discussed the option of a swallow study to determine if there were textures/thickness of liquids that might be safe enough to allow her to take PO. She is willing to do this and asks for it to be arranged quickly. [facility]. Nurse reports daughter, Sol, is coming this evening. Patient states her other daughter Yoly suddenly while on a trip overseas and her body is expected to arrive stateside this week. She wants to be able to attend her daughter's . I have not been able to verify if this is true but have notified the primary team of all of the patient's wishes for herself. There has been some confusion about who is decision maker for pt - does she make her own decisions or does her daughter Sol do so? As far as Decisional capacity: When Assessing decision making capacity: To be deemed decisional, a provider must be satisfied that a patient is able to do three tasks: 1. Receive information (e.g. must be awake, but not necessarily oriented x 4)Husam Byrd is AAOx3. She was able to tell me why a PEG was placed, the problem with her swallow and [facility] ([facility], [facility] 2. Evaluate, deliberate, and mentally manipulate information, and 3. Communicate a treatment preference (e.g. the comatose patient by definition is not decisional).- Rochelle wants to continue PEG feeds and try to recover strength and return home. She is willing to engage in PEG education for eventual self mgt and is willing to accept home health nursing support to help her transition from SNF to home if/when she is deemed to be appropriate for doing so. Providers should look for: 1. Understanding. Does the patient adequately understand the information about the risks, benefits, and alternatives of what is being proposed? The patient does not have to agree with your interpretation, but should be able to repeat what you have said. Ask, Can you repeat to me the options for treating X I have just discussed with you? Can you explain to me why you feel that way? What is your understanding of what will happen if we dont do Y? 2. Logic. Is the logic the patient uses to arrive at the decision not- irrational? One wants, as much as possible to make sure the patients values are speaking, rather than an underlying mental or physical illness. Note: Severe depression or hopelessness will make it difficult to interpret decisionality; consult psychiatry for assistance with this or other complex cases. 3. Consistency. Is the patient able to make a decision with some consistency? This means not changing ones mind every time one is asked. Is the decision consistent with the patients values? If there is a change in the patient values, can the patient explain the change? Decision making capacity is contingent. 4. Task specific. Deciding if the patient is decisional means weighing the degree to which the patient has decision making capacity against the objective risks and benefits to the patient. Some decisions are more complex than others, requiring a higher level of decision-making capacity. Thus a moderately demented patient may be able to make some decisions (e.g. antibiotics for pneumonia) but not others (e.g. chemotherapy for metastatic lung cancer). This sliding scale view of decisionality holds that it is proper to require a higher level of certainty when the decision poses great harm. Impression: A patient's decision can be simultaneously unwise but valid for them, so long as a rational process was used to arrive at it. Decision making capacity determinations are decision and time specific. This patient does have capacity with respect to this particular decision-making task at this time. Patient is able to articulate reasons for decision(s) and did not demonstrate any gross cognitive impairment or delirium thatwould be the reason for interfering with her ability to meaningfully understand information and appreciate the risks of refusing treatment disposition recommendations. The patient's decision making capacity appears intact at this time but I would not that certainly this could change in the future since mental statuses and various other factors can fluctuate over time. (References: Hortencia LEAHY. The Many Faces of Competency. [facility] Report. 1985;15(2):17-2. Henrik Mathews, Brandon Ibarra. Practical Ethics for Students, Interns and Residents. A Short Reference Manual. 2nd Edition. [employer]; 1997. Angel MICHEL, Venancio Oliver. A guide to assessing decision-making capacity. [facility] J Med. 2004; 71:971-5.) (3) Weakness generalized: (4) Upper GI bleeding: (5) Esophagitis determined by endoscopy: (6) Acute GI bleeding: (7) Dysphagia: (8) Interstitial lung disease: (9) Pulmonary hypertension: Plan In summary: Rochelle is decisional: she is able to make her own decisions and understands the implications of same. She screened negative for delirium during my visit. I did not find documentation that indicates she is incompetent to make her own decisions. If there is conflict about this capacity, I strongly recommend a formal psychiatry consult for confirmation of my assessment. She is able to provide a reasonable understanding of her dysphasia and other medical issues. Rochelle is willing to continue tube feeds. She wants to see if she can be allowed some PO for pleasure and enjoyment, she loves eating and feels the lack of being allowed PO is drastically and sharply reduced her QOL to a state of sheer misery and unhappiness. She is dejected. For her optimal well being, I feel we should at least check a swallow and see what she can be allowed for pleasure. Rochelle is seeking to learn more about managing her PEG. I encourage this teaching to begin now and continue [facility] at [facility]. Patient is scheduled for dc back to SNF tomorrow evening. [facility] was asked to assist with clarifying the GOC, which has been done as noted above. I will sign off. I have updated Dr Cruz. He anticipates speaking with dtluis miguel Horton when she arrives tonight. Thank you for allowing us to participate in the ongoing care of this patient. Please don't hesitate to call or page with any additional concerns. Dr. Renae Waterman DNP Director, Palliative Care History of Present Illness Reason for Consultation: Gi bleed, complex comorbitities, goals of care Attending Physician: Alfreda Cruz MD History of Present Illness 72yo female resident of [facility] admitted with vomiting bright red blood & BRBPR. She has a h/o dysphagia and esophagitis status post PEG placement on 05/18/2022, pulmonary hypertension, CHF, dermatomyositis/followed by Rheumatology Dr. [email or web address] been on CellCept/hx non-compliance; ILD/followed by Christopher Portillo MD @[facility]; Raynaud's disease, CVA, seizures, tobacco use, polyneuropathy. She was hypotensive - SBP in 60s, improved to 113/56 following 2L NSS bolus; labs Hgb 5.1, hct 17.1, BUN 59 EMR Link for [facility] records reviewed. She has not had any updates to pulm testing as ordered. Per admitting note: "will also get a palliative consult: pt is not happy with peg tube, with multiple comorbid conditions + worsening status will consult palliative for goals of care discussion" Her daughter Scott is her NOK Suzy is semi recline in bed, Awake and alert. She admits to bloating and distension, also tender at site. She is unhappy and says "I don't like my life anymore." She states she has not been happy with the feeding tube: "this process did not go like I expected and I don't feel like I had a good understanding of what it would do to my body afterwards. it disfigured me. I hate looking at it and it feels like my body has been damaged and can't ever go back to the way it was before this tube. If I had known how my body would look with this tube, I might not have agreed to even do it!" She has many questions about how she can resume her "normal" life with this tube, how will she dress/what can she wear, can she drive, leave her house, visit with friends etc.? Allergies Allergy/AdvReac Type Severity Reaction Status Date / Time No Known Allergies Allergy Verified 05/29/22 09:05 Home Medications Medication Instructions Recorded Confirmed Type doxepin 50 mg capsule 50 - 150 mg PO HS PRN Sleep 12/03/18 05/27/22 History gabapentin 100 mg capsule 100 mg PO TID 12/03/18 05/27/22 History mycophenolate mofetil 500 mg tablet 1,000 mg PO BID 12/03/18 05/27/22 History aspirin 81 mg tablet,delayed 81 mg PO QAM #90 tabs 08/30/20 05/27/22 Rx release atorvastatin 40 mg tablet 40 mg PO QAM #30 tabs 08/30/20 05/27/22 Rx clopidogrel 75 mg tablet (Plavix) 75 mg PO DAILY #30 tabs 08/30/20 05/27/22 Rx levetiracetam 500 mg tablet 500 mg PO BID #60 tabs 08/30/20 05/27/22 Rx (Keppra) furosemide 20 mg tablet (Lasix) 20 mg 3XWK 05/08/22 05/27/22 History potassium 20 mg chewable tablet 10 mg PO 3XWK 05/08/22 05/27/22 History spironolactone 25 mg tablet 25 mg PO DAILY 05/08/22 05/27/22 History (Aldactone) nutrition nbnk-rpvysg-BMZ-fiber 1 ea G-tube UD 30 days #30 BTLS 05/23/22 0 05/27/22 Rx 0.05 gram-1.2 kcal/mL tube feed liquid (Fibersource HN) pantoprazole 40 mg tablet,delayed 40 mg PO QAM #30 tabs 05/23/22 05/27/22 Rx release prednisone 20 mg tablet 20 mg NG DAILY #30 tabs 05/23/22 05/27/22 Rx pantoprazole 40 mg tablet,delayed 40 mg PO BID 05/27/22 05/27/22 History release (Protonix) Patient History Medical History (Updated 05/30/22 @ 09:46 by Renae Waterman DNP) Acute dyspnea Acute metabolic encephalopathy Acute respiratory failure with hypoxia Advanced care planning/counseling discussion Anemia Aspiration pneumonia DVT prophylaxis Elevated troponin Encounter for pre-operative examination History of CVA (cerebrovascular accident) History of seizures Palliative care by specialist Pneumonia Pulmonary hypertension Shortness of breath UTI (urinary tract infection) Weakness Weakness generalized Surgical History History of hysterectomy Family History Other Cancer Heart disease Social History Smoking Status: Former smoker Tobacco Type: Cigarettes Smoking End Date: 2016, 30 pack years; Second Hand Exposure: No; Hx Alcohol Use: No Hx Substance Use: No Preferred Language: Malay Communication Ability: Impaired Communication Ability Comment: currently having some aphasia 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 Required: No Beliefs That Will Affect Care: None marital status: Single Current Living Situation: Alone Current Living Situation Comment: At home byself recently enrolled in home health Other Information That Helps Us Care for You: No Feels Safe at Home: Yes Safety Concerns: Feels Safe At This Time Assistive Devices: Walker Review of Systems Review of Systems: All systems reviewed & are unremarkable except as noted in Subjective Physical Exam Physical Exam: Older female, resting in bed, NAD Mood depressed AAOx3 Mild bitemp wasting Pharynx pink, dentition fair, mucosa sl dry Neck supple, no stridor Chest clear, no wheezing, rales or rhonchi S1S2, no JVD Abd +PEG, mild bloating, generalized TTP, BS+, +flatus HERNANDEZ Mild weakness but strength is equal BUE and BLE Skin is pale, warm. No c/c/e Following commands appropriately. She is not delirious, her [facility] screen is negative. Results & Data Vital Signs (Past 12 Hours) Vital Signs Temp Pulse Pulse Pulse Resp BP Pulse Ox 05/30/22 07:48 36.8 C 85 23 128/58 L 97 05/30/22 07:46 85 05/30/22 03:00 37.1 C 88 18 145/74 H 98 05/30/22 00:00 90 05/29/22 23:23 36.7 C 87 20 145/72 H 98 O2 Del Method 05/30/22 07:48 Room Air 05/30/22 07:46 05/30/22 03:00 Room Air 05/30/22 00:00 05/29/22 23:23 Room Air Laboratory Results data reviewed Diagnostic Findings data reviewed PG Care Time/CCT Total # of Minutes Spent Total Time Spent: 115 Total Time Spent with Patient: Total time spent is greater than 50% in coordination of care (as documented) at patient's floor/unit and/or counseling patient: I spent 115 minutes overall addressing this case: 20 in medical data review/discussion with referring provider(s) and/or preparation for the visit including review of [facility] records 20 in direct interaction with the patient 60 Advance Care Planning/Goals of Care discussions as detailed above in note (must be >16min) 5 in subsequent review and synthesis of assessment and plan 10 in communicating with other providers regarding the patient's case: [] Prolonged Care Time Prolonged Care Time: Yes Advanced Care Planning 81464 Advanced Care Planning 30 [place] [address] IN/OBS CONSULT LVL 5,80M Patient Type New History Comprehensive Exam Comprehensive Medical Decision Making High Complexity Diagnoses Palliative care by specialist Z51.5 Advanced care planning/counseling discussion Z71.89 Weakness generalized R53.1 Upper GI bleeding K92.2 Esophagitis determined by endoscopy K20.90 Acute GI bleeding K92.2 Dysphagia R13.10 Interstitial lung disease J84.9 Pulmonary hypertension I27.20 Additional Codes Advanced Care Planning - 43428 Advanced Care Planning 30 Min: 62122 Advanced Care Planning 30 Min ([id number]) Prolonged Care Time - Prolonged Care Time: Yes ([id number])
[2022-05-30] MEDS ORDERED: ACETAMINOPHEN SUSP 325 MG/10.15 ML UDC PO PRN (09:34)
[2022-05-30] MEDS ORDERED: ACETAMINOPHEN SUSP 325 MG/10.15 ML UDC PEG PRN (09:45)
[2022-05-30] MEDS ORDERED: LANSOPRAZOLE 30 MG SOLTAB PEG ONE (10:00)
[2022-05-30] MEDS: CEFEPIME 2,000 MG in SYRINGE 0 ML IV SCH ×2 (10:46→17:18)
--- NOTE | 2022-05-30 13:19 | Hospitalist Progress Note ---
Date of Service May 30, 2022 Assessment & Plan (1) Upper GI bleeding: (2) Hypovolemic shock: (3) Severe anemia: (4) Esophagitis determined by endoscopy: (5) Pulmonary hypertension: (6) History of CVA (cerebrovascular accident): (7) History of seizures: (8) CHF (congestive heart failure): (9) COPD (chronic obstructive pulmonary disease): (10) Interstitial lung disease: Plan This is a 72yo F with a PMH of dysphagia and esophagitis status post PEG placement on 05/18/2022, pulmonary hypertension, CHF, dermatomyositis, ILD, Raynaud's disease, history of CVA, history of seizures, history of tobacco use, polyneuropathy and other medical problems listed below who presents from [facility] vomiting bright blood as well as bright red blood per rectum. Acute GI bleed Hematemesis Esophagitis Severe anemia Hypovolemic shock Recently admitted and had PEG tube placement on 05/19/22, EGD revealing esophagitis, recommended 40mg Protonix BID Taking aspirin/plavix for h/o CVA, also on 20mg prednisone daily course for dermatomyositis Began vomiting blood clots around 0100 1 05/27/2022, [facility] and sent over from [facility] Initialy hypotensive with SBP in 60s, improved to 113/56 following 2L NSS bolus Hgb 5.1, hct 17.1, BUN 59 on arrival She was kept on n.p.o. and Protonix drip was started Received 2 units of PRBC and hemoglobin went up to more than 8 this morning She has been feeling little better and did not have any more hematemesis, ian sea, vomiting or any melena yet Appreciate GI input and recommendation Status post EGD-showed LA grade B esophagitis and nodularity of the esophagus with no active bleeding. The site was biopsied and medications with Protonix and sucralfate started Discussed with the daughter in detail and updated about the EGD findings and subsequent management No more bleeding and the hemoglobin remained stable Hypotension has resolved and the patient has been doing much better Discussed with the environmental engineer scientist and will not continue any more of the Plavix start with baby aspirin Elevated troponin HS troponin 408.8 in setting of upper GI bleed. No chest pain or acute ST changes on ECG. Likely demand ischemia. Continue to trend troponin, monitor on tele, repeat ECG in AM Echo from last week showed no LV wall motion abnormality. Ejection fraction 55 to 60% Leukocytosis Infection at the site of the PEG insertion WBC 16.7k in setting of prednisone use. Will obtain blood cx/urine cx UA seems to be negative Blood cultures pending-negative Wound culture from the PEG tube site grew Pseudomonas aeruginosa and her antibiotic has been changed to cefepime 2 g IV every 8 hourly Local wound care ILD Recent PNA Follows with Pulm in [place]; Dr. Portillo Recent admission for PNA vs aspiriation pneumonitis treated with abx CXR today with no acute chest disease His prednisone and CellCept have been restarted Dysphagia Due to disease process, 05/19/22 EGD showed esophagitis and PEG tube placed PEG tube site does not know any infection Pulmonary HTN CHF Takes Aldactone and Lasix; hold for now due to hypotension 2/2 bleed Continue monitor closely Not in any fluid overload situation Dermatomyositis Follows with Rheumatology; Dr. Moncada Prescribed CellCept, history of non-compliance in the past Takes Prednisone 20mg daily - will need to clarify dose once no longer NPO CellCept and prednisone have been restarted H/O seizures Stable. Continue Keppra H/O CVA H/o CVA in 2020 without residual deficits On Dual antiplatelet therapy (ASA and Plavix) + statin Holding asa/plavix given upper GI bleed May benefit from discussion with neuro about reducing to single antiplatelet given GI bleed, esophagitis She has been on aspirin and Plavix prescribed by the environmental engineer scientist-Will discuss with the environmental engineer scientist tomorrow for possible withdrawal of these medications The patient gets stomach upset with Plavix and this will be discontinued as she does not need that anymore GERD Was previously on Protonix but DC due to interfering with CellCept Hypocalcemia Corrected Ca of 9.2 when considering hypoalbuminemia. Replaced in ED. Repeat Ca in AM labs DVT Ppx: SCDs Code status: DNR/DNI PCP: [facility] Dispo: Admitted to PCU Patient seen in collaboration with Dr. Lowery. Please see addendum. Daughter Sol requesting daily updates ([phone], ) A total of 60 minutes spent with the patient, reviewing chart and labs, reviewing medications, discussing with the GI specialist and with the daughter Admission and Anticipated Discharge Date Admission Date: May 27, 2022 Subjective 05/28/2022 The patient was seen and examined in telemetry unit She has been feeling better since admission She denies any abdominal pain, nausea and/or vomiting No hematemesis and/or melena Denies any chest pain or palpitation 05/29/2022 The patient was seen and examined in telemetry unit She is a status post EGD which showed grade B esophagitis without any acute bleeding She has been feeling much better Her outpatient medications were restarted except aspirin and Plavix 05/30/2022 The patient was seen and examined in the telemetry unit She has been feeling much better but remains pleasantly confused Complains to tenderness the abdomen without any nausea or vomiting No fever and or chills and that hemoglobin has not dropped Review of Systems Review of Systems: All systems reviewed and are unremarkable except as noted below Gastrointestinal: Denies any abdominal discomfort, nausea and or vomiting Physical Exam Physical Exam: Lying in bed comfortably Constitutional: + ill appearing and average body habitus Eyes: PERRL, conjunctivae normal, anicteric sclerae ENMT: external ear and nose normal, oropharynx normal Neck: trachea midline, no thyromegaly Respiratory: no respiratory distress Auscultation: + diminished lung sounds and + crackles (Minimal crackles at the bases) Cardiovascular: Rate/Rhythm: regular rate and regular rhythm; not tachycardic Heart Sounds: normal S1, normal S2 and + murmur Extremities: + edema (Trace edema bilaterally) Gastrointestinal (Abdomen): Inspection/Auscultation: normal bowel sounds; abdomen not distended Percussion/Palpation: + abdomen tender (Minimally tender epigastrium with the PEG tube in situ) and abdomen soft PEG tube site looks infected with your lesion drainage Musculoskeletal: No acute arthritis involving any joint Neurologic: normal touch/pain/proprioception and moves all extremities; no focal motor deficits Psychiatric: Mood: + depressed mood Lymphatic: no cervical or axillary lymphadenopathy Results & Data Results & Data Vital Signs (Past 12 Hours) Vital Signs Temp Pulse Pulse Resp BP Pulse Ox O2 Del Method 05/30/22 11:41 36.3 C L 85 24 142/66 H 97 Room Air 05/30/22 07:48 36.8 C 85 23 128/58 L 97 Room Air 05/30/22 07:46 85 05/30/22 03:00 37.1 C 88 18 145/74 H 98 Room Air Laboratory Results Short CBC 05/30/22 Range/Units 07:10 WBC 8.16 (4.8-10.8) K/ul Hgb 8.3 L (12.0-16.0) g/dl Hct 26.9 L (37.0-47.0) % Plt Count 162 (130-400) K/uL BMP 05/30/22 07:10 Sodium 139 Potassium 3.5 Chloride 110 H Carbon Dioxide 26 BUN 30 H Creatinine 0.57 L Glucose 114 H Calcium 7.2 L Medications Administered Current Inpatient Medications Acetaminophen (Acetaminophen Susp 325 Mg/10.15 Ml Udc) 650 mg PEG Q4H PRN PRN Reason: Pain or Fever Stop: 06/29/22 09:33 Atorvastatin Calcium (Atorvastatin 40 Mg Tab) 40 mg PEG QAM JONATHAN Stop: 06/29/22 08:59 Last Admin: 05/30/22 09:06 Dose: 40 mg Doxepin HCl (Doxepin Hcl 50 Mg Capsule) 100 mg PEG HS PRN PRN Reason: Sleep Stop: 06/28/22 11:38 Enteral Nutritional Formula (Fibersource Hn 1.2 Ismael 1000 Ml Bag) 1,000 ml GT UD JONATHAN; Protocol Stop: 06/28/22 12:25 Last Admin: 05/29/22 13:26 Dose: 1,000 ml Gabapentin (Gabapentin 250 Mg/5 Ml 470 Ml Btl) 100 mg PEG TID JONATHAN Stop: 06/28/22 13:59 Last Admin: 05/30/22 09:07 Dose: 100 mg Dextrose/Sodium Chloride (D5w And Nss) 1,000 mls @ 75 mls/hr IV .[id number] JONATHAN Stop: 06/28/22 06:44 Last Admin: 05/30/22 08:04 Dose: 75 mls/hr Cefepime HCl 2,000 mg/ Syringe 20 mls @ 5 mls/min IV Q8H JONATHAN Stop: 06/06/22 10:29 Last Admin: 05/30/22 10:46 Dose: 5 mls/min Lansoprazole (Lansoprazole 30 Mg Soltab) 30 mg PEG BID JONATHAN Stop: 06/29/22 08:59 Levetiracetam (Levetiracetam Soln 500 Mg/5 Ml Udp) 500 mg PEG BID JONATHAN Stop: 06/28/22 20:59 Last Admin: 05/30/22 09:08 Dose: 500 mg Mycophenolate Mofetil (Mycophenolate Susp 200 Mg/1 Ml) 1,000 mg PEG BID [facility] Stop: 06/28/22 20:59 Last Admin: 05/30/22 09:08 Dose: 1,000 mg Ondansetron HCl (Ondansetron Inj 2 Mg/Ml 2 Ml Vial) 4 mg IV Q6H PRN PRN Reason: Nausea Stop: 06/26/22 13:26 Polyethylene Glycol (Polyethylene (Miralax) 17 Gm Pack) 17 gm PEG DAILY PRN PRN Reason: Constipation Stop: 06/26/22 13:26 Potassium Chloride (Potassium Chloride 20meq/15ml 473ml) 10 meq PO MoWeFr@0900 [facility] Stop: 06/28/22 12:59 Last Admin: 05/29/22 13:25 Dose: 10 meq Prednisone (Prednisone 20 Mg Tab) 20 mg NG DAILY [facility] Stop: 06/29/22 08:59 Last Admin: 05/30/22 09:08 Dose: 20 mg Spironolactone (Spironolactone 25 Mg Tab) 25 mg PEG DAILY JONATHAN Stop: 06/29/22 08:59 Last Admin: 05/30/22 09:08 Dose: 25 mg Sterile Water (Tube Feeding Water Flush) 100 ml GT Q6H [facility] Stop: 06/28/22 12:29 Last Admin: 05/30/22 06:36 Dose: 100 ml Sucralfate (Sucralfate 1 Gm/10 Ml Udc) 1 gm PEG QID JONATHAN Stop: 06/28/22 12:59 Last Admin: 05/30/22 09:09 Dose: 1 gm (8) CHF (congestive heart failure) Heart failure chronicity: acute Heart failure type: unspecified Qualified Code(s): I50.9 - Heart failure, unspecified
[2022-05-30] MEDS: LANSOPRAZOLE 30 MG SOLTAB PEG SCH (20:57)
[2022-05-30] MEDS: FIBERSOURCE HN 1.2 CAL 1000 ML BAG GT SCH (21:09)
[2022-05-31] MEDS: TUBE FEEDING WATER FLUSH GT SCH ×5 (00:41→23:48)
[2022-05-31] MEDS: CEFEPIME 2,000 MG in SYRINGE 0 ML IV SCH ×3 (01:38→17:18)
[2022-05-31] MEDS: PANTOprazole 40 MG TAB PEG SCH (02:08)
[2022-05-31 07:07] LABS: Mean Corpuscular Hemoglobin 30.5 pg (25.0-34.0); Mean Corpuscular Hgb Conc 32.1 g/dL (32.0-36.0); Mean Corpuscular Volume 94.9 fL (80.0-100.0); Platelet Count 146 K/uL (130-400); RDW Coefficient of Variation 19.7 % (11.5-14.5); RDW Standard Deviation 63.7 fL (36.4-46.3); Red Blood Count 2.95 M/uL (4.20-5.40); White Blood Count 14.73 K/ul (4.8-10.8)
[2022-05-31 07:09] LABS: Anisocytosis Present; Basophils # (auto) 0.02 K/uL (0-0.2); Basophils % (auto) 0.1 %; Immature Granulocytes # (auto) 0.07 K/uL (0.01-0.20); Immature Granulocytes % (auto) 0.5 %; Lymphocytes # (auto) 0.65 K/uL (1.2-3.4); Lymphocytes % (auto) 4.4 %; Monocytes # (auto) 0.33 K/uL (0.11-0.59); Monocytes % (auto) 2.2 %; Neutrophils # (auto) 13.36 K/uL (1.40-6.50); Neutrophils % (auto) 90.8 %; Polychromasia 1+; Tear Drop Cells 2+
[2022-05-31 07:20] LABS: BUN Creatinine Ratio 53.7 (10-20); Calcium 7.3 mg/dl (8.6-10.3); Est GFR (Non-African American) 94.9 ml/min; Potassium 3.5 mmol/L (3.5-5.1)
--- NOTE | 2022-05-31 08:28 | Communication Note ---
Date of Service: May 31, 2022 Reviewed EGD path FINAL DIAGNOSIS Esophagus, biopsy: - Heavily inflamed columnar/gastric type mucosa. - Negative for intestinal metaplasia and dysplasia. - Squamous mucosa with acute esophagitis. - GMS stain for fungal organisms: Negative. PLAN: F/U OP EGD in 3 month's to eval healing
[2022-05-31] MEDS: ASPIRIN 81 MG CHEW PEG SCH (09:15)
[2022-05-31] MEDS: ATORVASTATIN 40 MG TAB PEG SCH (09:15)
[2022-05-31] MEDS: LANSOPRAZOLE 30 MG SOLTAB PEG SCH ×2 (09:15→19:49)
[2022-05-31] MEDS: SPIRONOLACTONE 25 MG TAB PEG SCH (09:16)
[2022-05-31] MEDS: POTASSIUM CHLORIDE 20MEQ/15ML 473ML PO SCH (09:16)
[2022-05-31] MEDS: SUCRALFATE 1 GM/10 ML UDC PEG SCH ×4 (09:16→20:57)
[2022-05-31] MEDS: MYCOPHENOLATE SUSP 200 MG/1 ML PEG SCH ×3 (09:19→19:52)
--- NOTE | 2022-05-31 09:20 | Communication Note ---
Date of Service: May 31, 2022 Attending addendum: I had a long discussion with the daughter and other family members in front of the patient in the patient room about her current medical status and possible discharge today there is 05/31/2022. The daughter was explained about the continuation of CellCept and prednisone. She is also aware that aspirin 81 mg will be continued but Plavix will be discontinued and this was discussed with the systems programmer analyst. Palliative care consultation was taken and the question of allowing the patient to have oral food with accepted risk was discussed. The speech therapy note says that she does not have any motility to swallow and they recommended there is speech therapy should be continued in the long term in future to see if she can tolerate any kind of oral food which the patient wants to enjoy. The infection in the PEG site was discussed and she can have IV or oral antibiotic on discharge to finish the course for 7 to 10 days. She is medically stable and can be discharged to [facility] or to the current nursing today. She has been getting IVIG for her dermatomyositis/interstitial lung disease as an outpatient and she was advised to make an appointment to see her master carpenter as soon as possible after discharge for recommendation for her dermatomyositis treatment. Dr Bertha Cruz
[2022-05-31] MEDS: GABAPENTIN 250 MG/5 ML 470 ML BTL PEG SCH ×3 (09:47→19:52)
[2022-05-31] MEDS: predniSONE 20 MG TAB NG SCH (10:23)
--- NOTE | 2022-05-31 16:37 | Electrocardiogram Report ---
Test Reason : Blood Pressure : / mmHG Vent. Rate : 117 BPM Atrial Rate : 125 BPM P-R Int : 000 ms QRS Dur : 094 ms QT Int : 324 ms P-R-T Axes : 000 -44 089 degrees QTc Int : 451 ms Atrial fibrillation with rapid ventricular response with premature ventricular or aberrantly conducte d complexes Left ventricular hypertrophy with repolarization abnormality Abnormal ECG When compared with ECG of 28-MAY-2022 04:48, Atrial fibrillation has replaced Sinus rhythm HR has increased 33 bpm Inverted T waves have replaced nonspecific T wave abnormality in Lateral leads Confirmed by Horacio Leggett ([id number]) on 05/31/2022 4:36:54 PM Referred By: REFERRED SELF Confirmed By:Horacio Leggett
--- NOTE | 2022-05-31 17:07 | Hospitalist Progress Note ---
Date of Service May 31, 2022 Assessment & Plan (1) Upper GI bleeding: (2) Hypovolemic shock: (3) Severe anemia: (4) Esophagitis determined by endoscopy: (5) Pulmonary hypertension: (6) History of CVA (cerebrovascular accident): (7) History of seizures: (8) CHF (congestive heart failure): (9) COPD (chronic obstructive pulmonary disease): (10) Interstitial lung disease: Plan This is a 72yo F with a PMH of dysphagia and esophagitis status post PEG placement on 05/18/2022, pulmonary hypertension, CHF, dermatomyositis, ILD, Raynaud's disease, history of CVA, history of seizures, history of tobacco use, polyneuropathy and other medical problems listed below who presents from [facility] vomiting bright blood as well as bright red blood per rectum. Acute GI bleed with hematemesis and hematochezia Esophagitis Severe anemia Hypovolemic shock Recently admitted and had PEG tube placement on 05/19/22, EGD revealing esophagitis, recommended 40mg Protonix BID Patient was taking aspirin/plavix for h/o CVA, also on 20mg prednisone daily course for dermatomyositis Began vomiting blood clots around 0100 1 05/27/2022, [facility] and sent over from [facility] Initially hypotensive with SBP in 60s, improved to 113/56 following 2L NSS bolus Hgb 5.1, hct 17.1, BUN 59 on arrival She was kept on n.p.o. and Protonix drip was started Received 2 units of PRBC and hemoglobin went up and now stable 5.1->8->9 No more hematemesis or melena Seen by GI- Status post EGD-showed LA grade B esophagitis and nodularity of the esophagus with no active bleeding. Esophageal biopsy shows heavily inflamed columnar/gastric type mucosa but negative for intestinal metaplasia and dysplasia, squamous mucosa with acute esophagitis, GMS stain negative for fungal organisms. Prior hospitalist discussed with cardiology who recommended discontinuing Plavix, but continue aspirin Elevated troponin- HS troponin 408.8 in setting of upper GI bleed. No chest pain or acute ST changes on ECG. Likely demand ischemia. Echo from last week showed no LV wall motion abnormality. Ejection fraction 55 to 60% Leukocytosis/pseudomonal infection at the site of the PEG insertion WBC 16.7k in setting of prednisone use. Blood culture negative, pus culture with Pseudomonas-pansensitive Continue cefepime in-house, will switch to Cipro at discharge to complete antibiotic course Local wound care ILD Recent PNA Follows with Pulm in [place]; Dr. Portillo Recent admission for PNA vs aspiriation pneumonitis treated with abx CXR with no acute chest disease His prednisone and CellCept have been restarted Dysphagia Due to disease process, 05/19/22 EGD showed esophagitis and PEG tube placed Continue strict n.p.o. status given her aspiration risk. Continue tube feed via PEG tube- all meds through PEG tube Continue follow-up with speech therapy to assess progress and see when she would be able to tolerate p.o. Pulmonary HTN CHF On Aldactone, monitor volume status closely. Currently not in any overload Dermatomyositis Follows with Rheumatology; Dr. Moncada Prescribed CellCept, history of non-compliance in the past CellCept and prednisone have been restarted H/O seizures Stable. Continue Keppra H/O CVA H/o CVA in 2020 without residual deficits Patient was on dual antiplatelet therapy (ASA and Plavix) + statin. Discussed with cardiology who recommended stopping Plavix and continuing aspirin. Sinus tachycardia- monitor on telemetry. Started on low dose lopressor. DVT Ppx: SCDs Code status: DNR/DNI Dispo: Anticip[facility] discharge [facility] if vitals and labs stable Updated george Horton over the phone and answered all questions George Horton requesting daily updates ([phone], ) Admission and Anticipated Discharge Date Admission Date: May 27, 2022 Subjective Patient was seen and examined at bedside in PCU. She feels fine and denies any issues. She is wondering when she can go home. States she did not have a good experience at [facility] before and she does have some concerns this time too about going there. Denies any chest pain, pulse, shortness of breath nausea vomiting. No fever or chills. Denies any palpitations. Review of Systems Review of Systems: All systems reviewed & are unremarkable except as noted in Subjective Physical Exam Physical Exam: General: Lying comfortably in bed, not in distress, on room air HEENT: EOMI, MMM Chest: Diminished but fair breath sounds bilaterally CVS: Regular rate and rhythm, normal heart sounds, no murmur Abdomen: Soft, non tender, not distended, normal bowel sounds. PEG site noted-no active infection currently Neuro: Awake, alert, conversing well, non focal Extremities: No cyanosis, clubbing, trace edema Psych: Depressed mood Results & Data Results & Data Vital Signs (Past 12 Hours) Vital Signs Temp Pulse Pulse Resp BP Pulse Ox O2 Del Method 05/31/22 15:42 36.5 C 118 H 17 97/68 L 98 Room Air 05/31/22 12:55 100 H 05/31/22 11:34 36.6 C 120 H 17 127/71 97 Room Air 05/31/22 07:17 37.0 C 101 H 17 133/68 96 Room Air Laboratory Results Short CBC 05/31/22 Range/Units 05:55 WBC 14.73 H (4.8-10.8) K/ul Hgb 9.0 L (12.0-16.0) g/dl Hct 28.0 L (37.0-47.0) % Plt Count 146 (130-400) K/uL BMP 05/31/22 05:55 Sodium 138 Potassium 3.5 Chloride 109 H Carbon Dioxide 24 BUN 29 H Creatinine 0.54 L Glucose 116 H Calcium 7.3 L Medications Administered Current Inpatient Medications Acetaminophen (Acetaminophen Susp 325 Mg/10.15 Ml Udc) 650 mg PEG Q4H PRN PRN Reason: Pain or Fever Stop: 06/29/22 09:33 Aspirin (Aspirin 81 Mg Chew) 81 mg PEG DAILY JONATHAN Stop: 06/30/22 08:59 Last Admin: 05/31/22 09:15 Dose: 81 mg Atorvastatin Calcium (Atorvastatin 40 Mg Tab) 40 mg PEG QAM JONATHAN Stop: 06/29/22 08:59 Last Admin: 05/31/22 09:15 Dose: 40 mg Doxepin HCl (Doxepin Hcl 50 Mg Capsule) 100 mg PEG HS PRN PRN Reason: Sleep Stop: 06/28/22 11:38 Enteral Nutritional Formula (Fibersource Hn 1.2 Ismael 1000 Ml Bag) 1,000 ml GT UD JONATHAN; Protocol Stop: 06/28/22 12:25 Last Admin: 05/30/22 21:09 Dose: 1,000 ml Gabapentin (Gabapentin 250 Mg/5 Ml 470 Ml Btl) 100 mg PEG TID JONATHAN Stop: 06/28/22 13:59 Last Admin: 05/31/22 14:30 Dose: 100 mg Cefepime HCl 2,000 mg/ Syringe 20 mls @ 5 mls/min IV Q8H JONATHAN Stop: 06/06/22 10:29 Last Admin: 05/31/22 09:19 Dose: 5 mls/min Lansoprazole (Lansoprazole 30 Mg Soltab) 30 mg PEG BID JONATHAN Stop: 06/29/22 08:59 Last Admin: 05/31/22 09:15 Dose: 30 mg Levetiracetam (Levetiracetam Soln 500 Mg/5 Ml Udp) 500 mg PEG BID JONATHAN Stop: 06/28/22 20:59 Last Admin: 05/31/22 09:16 Dose: 500 mg Metoprolol Tartrate (Metoprolol Tartrate 25 Mg Tab) 12.5 mg PO BID JONATHAN Stop: 06/30/22 20:59 Mycophenolate Mofetil (Mycophenolate Susp 200 Mg/1 Ml) 1,000 mg PEG BID JONATHAN Stop: 06/28/22 20:59 Last Admin: 05/31/22 10:23 Dose: 1,000 mg Ondansetron HCl (Ondansetron Inj 2 Mg/Ml 2 Ml Vial) 4 mg IV Q6H PRN PRN Reason: Nausea Stop: 06/26/22 13:26 Polyethylene Glycol (Polyethylene (Miralax) 17 Gm Pack) 17 gm PEG DAILY PRN PRN Reason: Constipation Stop: 06/26/22 13:26 Potassium Chloride (Potassium Chloride 20meq/15ml 473ml) 10 meq PO MoWeFr@0900 JONATHAN Stop: 06/28/22 12:59 Last Admin: 05/31/22 09:16 Dose: 10 meq Prednisone (Prednisone 20 Mg Tab) 20 mg NG DAILY JONATHAN Stop: 06/29/22 08:59 Last Admin: 05/31/22 10:23 Dose: 20 mg Spironolactone (Spironolactone 25 Mg Tab) 25 mg PEG DAILY JONATHAN Stop: 06/29/22 08:59 Last Admin: 05/31/22 09:16 Dose: 25 mg Sterile Water (Tube Feeding Water Flush) 100 ml GT Q6H JONATHAN Stop: 06/28/22 12:29 Last Admin: 05/31/22 13:22 Dose: 100 ml Sucralfate (Sucralfate 1 Gm/10 Ml Udc) 1 gm PEG QID JONATHAN Stop: 06/28/22 12:59 Last Admin: 05/31/22 13:23 Dose: 1 gm (8) CHF (congestive heart failure) Heart failure chronicity: acute Heart failure type: unspecified Qualified Code(s): I50.9 - Heart failure, unspecified
[2022-05-31] MEDS: METOPROLOL TARTRATE 25 MG TAB PO SCH (19:49)
[2022-05-31] MEDS: CIPROFLOXACIN 500 MG TAB PO SCH (19:52)
[2022-06-01] MEDS: TUBE FEEDING WATER FLUSH GT SCH ×2 (05:58→12:30)
[2022-06-01 07:47] LABS: Hematocrit (blood only) 30.8 % (37.0-47.0); Hemoglobin 9.5 g/dl (12.0-16.0); Mean Corpuscular Hgb Conc 30.8 g/dL (32.0-36.0); Mean Corpuscular Volume 97.2 fL (80.0-100.0); Mean Platelet Volume 11.6 fL (9.4-12.4); Platelet Count 174 K/uL (130-400); RDW Coefficient of Variation 19.9 % (11.5-14.5); RDW Standard Deviation 67.7 fL (36.4-46.3); Red Blood Count 3.17 M/uL (4.20-5.40); White Blood Count 8.69 K/ul (4.8-10.8)
[2022-06-01 08:01] LABS: BUN Creatinine Ratio 56.9 (10-20); Calcium 7.4 mg/dl (8.6-10.3); Creatinine Clr Calc Pharmacy 90.5 ml/min; Est GFR (African American) 112.1 ml/min; Est GFR (Non-African American) 96.7 ml/min; Magnesium 1.8 mg/dl (1.7-2.4); Potassium 3.6 mmol/L (3.5-5.1)
[2022-06-01] MEDS: METOPROLOL TARTRATE 25 MG TAB PO SCH (09:38)
[2022-06-01] MEDS: CIPROFLOXACIN 500 MG TAB PO SCH (09:38)
[2022-06-01] MEDS: ASPIRIN 81 MG CHEW PEG SCH (09:38)
[2022-06-01] MEDS: ATORVASTATIN 40 MG TAB PEG SCH (09:38)
[2022-06-01] MEDS: SPIRONOLACTONE 25 MG TAB PEG SCH (09:39)
[2022-06-01] MEDS: LANSOPRAZOLE 30 MG SOLTAB PEG SCH (09:39)
[2022-06-01] MEDS: SUCRALFATE 1 GM/10 ML UDC PEG SCH ×2 (09:39→13:42)
[2022-06-01] MEDS: predniSONE 20 MG TAB NG SCH (09:39)
[2022-06-01] MEDS: MYCOPHENOLATE SUSP 200 MG/1 ML PEG SCH (09:46)
[2022-06-01] MEDS: GABAPENTIN 250 MG/5 ML 470 ML BTL PEG SCH ×2 (09:46→13:42)
--- NOTE | 2022-06-01 15:24 | Discharge Summary ---
Date of Service June 01, 2022 Admission HPI Per Admitting Provider This is a 72yo F with a PMH of dysphagia and esophagitis status post PEG placement on 05/19/2022, pulmonary hypertension, CHF, dermatomyositis, ILD, Raynaud's disease, history of CVA, history of seizures, history of tobacco use, polyneuropathy and other medical problems listed below who presents from [facility] vomiting bright blood as well as bright red blood per rectum. Initial SBP on arrival was in 60s. Bolused 2L NSS with improved BP to 109/55, HR 107. Was recently admitted to [facility] [place] for treatment of pneumonia and while here, underwent EGD due to dysphagia for PEG tube placement. Found to have nonbleeding eso phagitis and recommended to start Protonix 40 mg twice daily. Was discharged from [facility] [place] to [facility] on 05/23/22 and was feeling a lot better up until early this morning. History primarily obtained over the phone from daughter Scott. Facility called her early this morning informing her that patient began vomiting blood clots around 0100 and was having bright red blood per rectum. The largest blood clot was said to be the size of a golf ball. Scott came into the hospital this morning around 7 and felt her mom looked pale and weak compared to normal. Had been receiving tube feeds and meds per [facility], but they were stopped when she started to have vomiting. Did call to confirm patient received protonix dose this AM. Was sent to ED for further evaluation. Of note, patient is on aspirin and Plavix for history of CVA. Also on a prednisone course of 20 mg daily for history of dermatomyositis for which she follows with rheumatology. Per daughter, patient is usually alert and oriented and able to answer basic questions appropriately on exam but has limited insight to health or complex issues ever since stroke/ongoing seizure disorder as well as recently finding out that her other daughter has unexpectedly 2 weeks ago and is greiving. On exam, patient is alert and oriented but not entirely clear on situation. Endorsing fatigue and abdominal pain. Denies any fever, chills, chest pain, shortness of breath, dysuria, constipation. Clarified with daughter Sol that patient is a DNR/DNI. Okay with blood products, IV fluids and a central line if needed to maintain BP. Admission Exam Per Admitting Provider Appeared sleepy, NAD HEENT: Dry oropharynx, exotrophia of the R eye Cardiac: normal S1/S2, no murmur Lungs: CTA, no wheezing or crackles Abd: peg tube in place with small amount of dry blood around the insertion site, soft, ND, diffuse TTP MSK: b/l trace LE pitting edema Psych: AAOx3 (got the month wrong) Principal Diagnosis Acute GI bleed with hematemesis and hematochezia, esophagitis, pseudomonal infection of PEG tube site, dermatomyositis, dysphagia on PEG tube. Discharge Exam General: Lying comfortably in bed, not in distress, on room air HEENT: CRISYT, EOMI Chest: Diminished with fair breath sounds. CVS: Regular rate and rhythm, normal heart sounds, no murmur Abdomen: Soft, non tender, not distended, normal bowel sounds, PEG site clear Neuro: Awake, alert, oriented, conversing well, non focal Extremities: No cyanosis, clubbing, trace edema Discharge Data Allergies Allergy/AdvReac Type Severity Reaction Status Date / Time No Known Allergies Allergy Verified 05/29/22 09:05 Consultations 05/27/22 12:05 ED Decision to Admit Stat 05/27/22 12:07 Consult Gastroenterology Routine 05/29/22 08:00 Consult Palliative Care Routine Procedures Performed Operation Date: 05/29/22 17:15 Actual Procedures p EGD Biopsy Cytology - Johnnie Mcadams DO Ordered Studies 05/27/22 09:47 CT abd pelvis IV con only Stat Laboratory Results WBC 8.69 K/ul (4.8-10.8) 06/01/22 07:01 RBC 3.17 M/uL (4.20-5.40) L 06/01/22 07:01 Hgb 9.5 g/dl (12.0-16.0) L 06/01/22 07:01 POC Hgb 5.1 g/dl (12.0-16.0) L* 05/27/22 10:31 Hct 30.8 % (37.0-47.0) L 06/01/22 07:01 POC Hct 15 % (37-47) L* 05/27/22 10:31 MCV 97.2 fL (80.0-100.0) 06/01/22 07:01 MCH 30.0 pg (25.0-34.0) 06/01/22 07:01 MCHC 30.8 g/dL (32.0-36.0) L 06/01/22 07:01 RDW Std Deviation 67.7 fL (36.4-46.3) H 06/01/22 07:01 RDW Coeff of Myra 19.9 % (11.5-14.5) H 06/01/22 07:01 Plt Count 174 K/uL (130-400) 06/01/22 07:01 MPV 11.6 fL (9.4-12.4) 06/01/22 07:01 Immature Gran % (Auto) 0.5 % 05/31/22 05:55 Neut % (Auto) 90.8 % 05/31/22 05:55 Lymph % (Auto) 4.4 % 05/31/22 05:55 Ingham % (Auto) 2.2 % 05/31/22 05:55 Eos % (Auto) 2.0 % 05/31/22 05:55 Baso % (Auto) 0.1 % 05/31/22 05:55 Neut # (Auto) 13.36 K/uL (1.40-6.50) H 05/31/22 05:55 Lymph # (Auto) 0.65 K/uL (1.2-3.4) L 05/31/22 05:55 Ingham # (Auto) 0.33 K/uL (0.11-0.59) 05/31/22 05:55 Eos # (Auto) 0.30 K/uL (0-0.50) 05/31/22 05:55 Baso # (Auto) 0.02 K/uL (0-0.2) 05/31/22 05:55 Immature Gran # (Auto) 0.07 K/uL (0.01-0.20) 05/31/22 05:55 Polychromasia 1+ 05/31/22 05:55 Anisocytosis Present 05/31/22 05:55 Tear Drop Cells 2+ 05/31/22 05:55 PT 12.4 Seconds (9.0-12.0) H 05/27/22 10:23 INR 1.2 (0.9-1.1) H 05/27/22 10:23 APTT 22.9 Seconds (21.0-31.0) 05/27/22 10:23 PTT Ratio 0.8 05/27/22 10:23 POC Sodium 138 mmol/L (135-144) 05/27/22 10:31 Sodium 136 mmol/L (136-145) 06/01/22 07:01 POC Potassium 4.8 mmol/L (3.3-5.0) 05/27/22 10:31 Potassium 3.6 mmol/L (3.5-5.1) 06/01/22 07:01 POC Chloride 98 mmol/L (101-112) L 05/27/22 10:31 Chloride 108 mmol/L (98-107) H 06/01/22 07:01 Carbon Dioxide 24 mmol/L (21-32) 06/01/22 07:01 POC Total CO2 24 mmol/L (24-31) 05/27/22 10:31 Anion Gap 4 (3-11) 06/01/22 07:01 POC Anion Gap 22.0 mmol/L (16-25) 05/27/22 10:31 POC BUN 55 mg/dl (7-18) H 05/27/22 10:31 BUN 29 mg/dl (6-23) H 06/01/22 07:01 Creatinine 0.51 mg/dl (0.6-1.2) L 06/01/22 07:01 POC Creatinine 0.9 mg/dl (0.6-1.3) 05/27/22 10:31 Est Cr Clr Drug Dosing 90.5 ml/min 06/01/22 07:01 Est GFR ( Amer) 112.1 ml/min 06/01/22 07:01 Est GFR (Non-Af Amer) 96.7 ml/min 06/01/22 07:01 BUN/Creatinine Ratio 56.9 (10-20) H 06/01/22 07:01 Glucose 114 mg/dl (70-99(Fasting)) H 06/01/22 07:01 POC Glucose 120 mg/dl (70-99) H 06/01/22 06:09 POC Glucose (other) 96 mg/dl (70-99) 05/27/22 10:31 Calcium 7.4 mg/dl (8.6-10.3) L 06/01/22 07:01 POC Ioniz Calcium Luis 1.06 mmol/l (1.12-1.32) L 05/27/22 10:31 Magnesium 1.8 mg/dl (1.7-2.4) 06/01/22 07:01 Total Bilirubin 0.4 mg/dl (0.2-1.0) 05/29/22 05:33 AST 131 U/L (13-39) H 05/29/22 05:33 ALT 70 U/L (7-52) H 05/29/22 05:33 Alkaline Phosphatase 51 U/L (34-104) 05/29/22 05:33 Troponin I High Sens 375.1 pg/ml (0-14) H* 05/27/22 22:24 Total Protein 4.7 gm/dl (6.0-8.3) L 05/29/22 05:33 Albumin 2.1 gm/dl (3.4-5.0) L 05/29/22 05:33 Globulin 2.6 gm/dl (2.5-4.0) 05/29/22 05:33 Albumin/Globulin Ratio 0.8 (0.9-2) L 05/29/22 05:33 Lipase 54 U/L (11-82) 05/27/22 10:23 Urine Color Yellow 05/27/22 10:10 Urine Appearance Cloudy (Clear) A 05/27/22 10:10 Urine pH 6.0 (4.5-7.5) 05/27/22 10:10 Ur Specific [place] 1.019 (1.000-1.030) 05/27/22 10:10 Urine Protein 1+ (Negative) H 05/27/22 10:10 Urine Glucose (UA) Negative (Negative) 05/27/22 10:10 Urine Ketones Negative (Negative) 05/27/22 10:10 Urine Blood Negative (Negative) 05/27/22 10:10 Urine Nitrite Negative (Negative) 05/27/22 10:10 Urine Bilirubin Negative (Negative) 05/27/22 10:10 Urine Urobilinogen Negative (Negative) 05/27/22 10:10 Ur Leukocyte Esterase Trace (Negative) H 05/27/22 10:10 Urine WBC (Auto) 5-10 /hpf (0-5) H 05/27/22 10:10 Urine RBC (Auto) 0-4 /hpf (0-4) 05/27/22 10:10 U Hyaline Cast (Auto) 5-10 /lpf (0-5) H 05/27/22 10:10 U Epithel Cells (Auto) >30 /lpf (0-5) H 05/27/22 10:10 Urine Bacteria (Auto) Negative (Negative) 05/27/22 10:10 Nasal Screen MRSA (PCR) Negative (Negative) 05/27/22 23:03 Stool Occult Bld Scrn Positive (Negative) A 05/29/22 Unknown SARS-CoV-2 (PCR) NEGATIVE (Negative) 05/30/22 15:40 SARS-CoV-2, RNA, NAAT NEGATIVE (NEGATIVE) 06/01/22 09:45 Blood Type A Positive 05/27/22 10:23 Antibody Screen NEGATIVE 05/27/22 10:23 Crossmatch See Detail 05/27/22 10:23 Impressions Abdomen/Pelvis CT 05/27/22 09:47 CT abd pelvis IV con only CLINICAL HISTORY: gi bleed TECHNIQUE: Helical axial images of the abdomen and pelvis were obtained and displayed. Automated dose lowering techniques and/or adjustment according to pat ient size were utilized for this exam. This exam was performed with intravenous contrast. CT DOSE: 411.75 mGy.cm COMPARISON: Comparison is made to CT abdomen pelvis 12/03/2018 FINDINGS: Lower chest: Peripheral interstitial changes are seen. Cardiomegaly is noted. Liver: Subcentimeter hypodensities in the liver are too small to characterize. Gallbladder and biliary tree: Patient is status post cholecystectomy. No intra- or extrahepatic biliary ductal dilation. Pancreas: Unremarkable, no focal lesions. Spleen: Unremarkable. Adrenals: Unremarkable. Kidneys and ureters: Left renal cyst is seen. Bladder: Soliz catheter is seen. Reproductive organs: Unremarkable. Bowel: Diverticulosis is seen without evidence of diverticulitis. The appendix is unremarkable. There is a small hiatal hernia. Gastrostomy tube is seen in place. Lymph nodes Retroperitoneal: Unremarkable. Pelvic: Unremarkable. Mesenteric: Unremarkable. Peritoneum: Small ascites is seen most prominent in the right upper quadrant. No pneumoperitoneum or drainable fluid collection. Vessels: Atherosclerotic calcifications are seen. Abdominal wall: Unremarkable. Bones: Degenerative changes in the visualized spine. IMPRESSION: 1. No acute abnormalities are seen. There is nonspecific small right upper quadrant ascites. 2. Gastrostomy tube is again seen. Diverticulosis without diverticulitis. 3. There is cardiomegaly and pulmonary fibrotic changes. 4. Additional findings as above. ACT 112: Negative or not required by law. Electronically signed by: Xavier Tavares M.D. 05/27/2022 12:23 PM Chest X-Ray 05/27/22 09:47 XR chest 1V portable CLINICAL HISTORY: gi bleed TECHNIQUE: Single frontal radiograph of the chest was obtained. Comparison: Comparison is made to chest radiograph 05/17/2022 FINDINGS: No lines and tubes are seen. The aorta is tortuous. The remainder of the cardiomediastinal silhouette is unremarkable. Reticular interstitial opacities are seen. Lungs are underinflated. No evidence of pleural effusion or pneumothorax. IMPRESSION: No acute chest disease. ACT 112: Negative or not required by law. Electronically signed by: Xavier Tavares M.D. 05/27/2022 11:24 AM Hospital Course (1) Upper GI bleeding: (2) Hypovolemic shock: (3) Severe anemia: (4) Esophagitis determined by endoscopy: (5) Pulmonary hypertension: (6) History of CVA (cerebrovascular accident): (7) History of seizures: (8) CHF (congestive heart failure): (9) COPD (chronic obstructive pulmonary disease): (10) Interstitial lung disease: Plan This is a 72yo F with a PMH of dysphagia and esophagitis status post PEG placement on 05/18/2022, pulmonary hypertension, CHF, dermatomyositis, ILD, Raynaud's disease, history of CVA, history of seizures, history of tobacco use, polyneuropathy and other medical problems listed below who presents from [facility] vomiting bright blood as well as bright red blood per rectum. Patient was found to have a hemoglobin of 5, down from 9. Received 2 unit of PRBC with improvement of hemoglobin to 8 and has continued to improve to 9 since then. He was seen by GI and underwent EGD which showed esophagitis but no active bleeding. Continue on PPI and Carafate per GI. Also had pseudomonal infection of PEG tube site, pansensitive, status post cefepime and now on Cipro to complete course. Her meds for dermatomyositis have been resumed. Her Plavix has been discontinued and will continue on aspirin and statin because of history of stroke. This was as per discussion with cardiology by prior hospitalist. She is strict n.p.o. and will continue get all her meds via PEG tube. She will be evaluated by speech therapist at [facility] for further recommendations. She is comfortable and stable for discharge to [facility]. Discussed plan of care with patient at bedside and with her daughter over the phone. All qu estions were answered to satisfaction. 50 minutes spent taking care of the patient, speaking with patient and family, discussing with care team members and reviewing chart. Acute GI bleed with hematemesis and hematochezia-resolved Esophagitis Severe anemia-improved status post transfusion Hypovolemic shock-resolved Recently admitted and had PEG tube placement on 05/19/22 Patient was taking aspirin/plavix for h/o CVA, also on 20mg prednisone daily course for dermatomyositis Began vomiting blood clots around 0100 1 05/27/2022, [facility] and sent over from [facility] Initially hypotensive with SBP in 60s, improved to 113/56 following 2L NSS bolus Hgb 5.1, hct 17.1, BUN 59 on arrival She was kept on n.p.o. and Protonix drip was started Received 2 units of PRBC and hemoglobin went up and now stable 5.1->8->9->9.5 No more hematemesis or melena Seen by GI- Status post EGD-showed LA grade B esophagitis and nodularity of the esophagus with no active bleeding. Esophageal biopsy shows heavily inflamed columnar/gastric type mucosa but negative for intestinal metaplasia and dysplasia, squamous mucosa with acute esophagitis, GMS stain negative for fungal organisms. Prior hospitalist discussed with cardiology who recommended discontinuing Plavix, but continue aspirin Per GI, continue PPI indefinitely, Carafate 4 times daily for a month. Follow-up with GI as outpatient Elevated troponin- HS troponin 408.8 in setting of upper GI bleed. No chest pain or acute ST changes on ECG. Likely demand ischemia. Echo from last week showed no LV wall motion abnormality. Ejection fraction 55 to 60% Leukocytosis-resolved Pseudomonal infection at the site of the PEG insertion Blood culture negative, pus culture with Pseudomonas-pansensitive S/p cefepime in-house and switched to Cipro to complete antibiotic course Local wound care ILD with recent PNA Follows with Pulm in [place]; Dr. Portillo Recent admission for PNA vs aspiriation pneumonitis treated with abx CXR with no acute chest disease His prednisone and CellCept have been restarted Dysphagia Due to disease process, 05/19/22 EGD showed esophagitis and PEG tube placed Continue strict n.p.o. status given her aspiration risk. Continue tube feed via PEG tube- all meds through PEG tube Continue follow-up with speech therapy to assess progress and see when she would be able to tolerate p.o. Pulmonary HTN CHF On Aldactone, monitor volume status closely. Currently not in any overload Dermatomyositis Follows with Rheumatology; Dr. Moncada Prescribed CellCept, history of non-compliance in the past CellCept and prednisone have been restarted H/O seizures Stable. Continue Keppra H/O CVA H/o CVA in 2020 without residual deficits Patient was on dual antiplatelet therapy (ASA and Plavix) + statin. Discussed with cardiology who recommended stopping Plavix and continuing aspirin. Sinus tachycardia- resolved. Continue low dose metoprolol Patient was also seen by palliative to discuss GOC. Total Time Total Time Spent Total Time Spent (In Minutes): 50 Discharge Plan Discharge Items Patient Disposition: Transfer [facility] Fac Reason For Visit: HEMETEMESIS, SEVERE ANEMIA Discharge Diagnosis: Acute blood loss anemia with hematemesis and hematochezia, esophagitis, pseudomonal infection of PEG tube site, Dermatomyositis Condition on Discharge: Fair Activity: Per Instructions section Non-emergency contact: Primary Care Provider Call non-emergency contact if: you have any medication questions, your symptoms worsen and you have a fever Follow-up/Referrals: Cynthia Gagnon CRNP [Primary Care Provider] - Diet: Nothing by Mouth Diet Comment: Tube feed Addtl Attending Provider Instructions: Continue medications as prescribed. All meds through PEG tube. Stop plavix pe rmanently. Strict npo for now. Continue tube feed. Follow up with the speech therapist at [facility] for reevaluation regarding when po intake might be reasonable. For esophagitis, PPI indefinitely and carafate 4 times daily for 1 month per GI. Continue iron supplementation. Pending Studies at Discharge: No Stand-Alone Forms: My [employer] Skilled Items Patient informed of condition?: Yes DNR: Yes Discharge Level of Care: Skilled Communicable Disease: No Discharge Prognosis: Stable Lines: None Urinary Catheter: No Medications and DC Order Prescriptions: New ciprofloxacin HCl 500 mg Tablet 500 mg feeding tube BID Qty: 10 0RF metoprolol tartrate 25 mg Tablet 12.5 mg feeding tube BID Qty: 30 0RF levetiracetam [Keppra] 100 mg/mL Solution 500 mg PEG BID Qty: 200 0RF potassium chloride 20 mEq/15 mL Liquid 10 meq PO MoWeFr@0900 Qty: 450 0RF lansoprazole [Prevacid SoluTab] 30 mg Tablet,Disintegrat, Delay Rel 30 mg PEG BID Qty: 60 0RF polyethylene glycol 3350 [Miralax] 17 gram Powder In Packet 17 g PEG DAILY PRN (Reason: constipation) Qty: 30 0RF sucralfate 100 mg/mL Suspension 1 g PEG QID Qty: 400 0RF mycophenolate mofetil [CellCept] 200 mg/mL Suspension For Reconstitution 1,000 mg PEG BID Qty: 160 0RF Continued pantoprazole 40 mg tablet,delayed release (DR/EC) 40 mg PO QAM Qty: 30 0RF Rx Instructions: Via peg tube Fibersource HN 0.05 gram- 1.2 kcal/mL Liquid 1 ea G-tube UD 30 Days Qty: 30 0RF Rx Instructions: Continue Fibersource with goal rate of 55ml/hr Changed atorvastatin 40 mg Tablet 40 mg feeding tube QAM Qty: 30 0RF doxepin 50 mg capsule 50 - 150 mg feeding tube HS PRN (Reason: Sleep) Qty: 30 0RF prednisone 20 mg Tablet 20 mg feeding tube DAILY Qty: 30 0RF aspirin 81 mg Tablet,Delayed Release (Dr/Ec) 81 mg feeding tube QAM Qty: 90 1RF spironolactone [Aldactone] 25 mg Tablet 25 mg feeding tube DAILY Qty: 30 0RF furosemide [Lasix] 20 mg tablet 20 mg feeding tube 3XWK Qty: 30 0RF gabapentin 100 mg capsule 100 mg feeding tube TID Qty: 60 0RF Discontinued mycophenolate mofetil 500 mg tablet 1,000 mg PO BID levetiracetam [Keppra] 500 mg Tablet 500 mg PO BID Qty: 60 0RF clopidogrel [Plavix] 75 mg tablet 75 mg PO DAILY Qty: 30 0RF pantoprazole [Protonix] 40 mg Tablet,Delayed Release (Dr/Ec) 40 mg PO BID potassium 20 mg Tablet,Chewable 10 mg PO 3XWK Discharge Orders: Discharge Order (Routine); Ordered 06/01/22 Ordered By: Jamaal Mathew Admission Data Admit Date/Time: 05/27/22 12:02 Attending Provider: Jamaal Mathew Admit Provider: Kerline Lowery Primary Care Provider: Cynthia Gagnon I. Other Providers: Kerline Lowery ; Margaret Selby Jr ; Emily Valadez ; [facility] Other Interventions: Discharge Summary Assessment (RN) Last Done: 06/01/22 13:25
--- NOTE | 2022-06-07 13:58 | Coding Query ---
CODING QUERY To promote full compliance with coding requirements relating to patient care, provider participation is requested in all cases of php wordpress developer uncertainty. Please assist us with the question(s) below: Coding Question(s): The 05/29 History & Physical Addendum documents, "The patient was seen over the weekend for question of worsening anemia in the setting of coffee-ground emesis. Given that the drop in hemoglobin and hematocrit it may be reasonable to proceed with a repeat upper endoscopy, the patient did have severe esophagitis noted during her examination 2 weeks ago, I wonder if this is the etiology to her anemia in addition to ongoing use of antiplatelet agents", and then the 05/29 Communication Note documents, "Patient underwent upper endoscopy today for question of coffee-ground emesis. She was found to have a hiatal hernia and evidence of esophagitis and nodularity of the distal esophagus. No active bleeding was noted. The feeding tube that had been placed 2 weeks ago appears to be intact without evidence of ulceration. Patient's presentation was likely related to a combination of antiplatelet agents". Please specify below, in your clinical opinion, the most likely cause of GI Bleeding/Hematemesis/Hematochezia: ( X) most likely due to Esophagitis and use of antiplatelet agents ( ) most likely due to antiplatelet agents only ( ) most likely due to Esophagitis only ( ) most likely due to Other: Please Specify Physician's Response(s): Thank you Lashawn Aguilar Principal Diagnosis: "that condition established after study, to be chiefly responsible for occasioning the admission of the patient to the hospital for care." Co-Existing Principal Diagnosis: "when two or more diagnoses equally meet the criteria for principal diagnosis as determined by the circumstances of admission, diagnostic work up, and/or therapy provided, and the Alphabetic Index, Tabular List, or another coding guideline does not provide sequencing direction, any one of the diagnoses may be sequenced first." "When the physician has documented what appears to be a current diagnosis in the body of the record, but has not included the diagnosis in the final diagnostic statement, the physician should be asked whether the diagnosis should be added." (Source Coding [facility] 2 QTR90. p3-4) [place]
== END 2022-06-01 15:22 | DRG 368 ==
LOC: ED 09:35 → SUATTDRO 12:02 → 2E 12:02

== ENCOUNTER 2022-06-23 12:49 | Inpatient (IN) ==
[~2022-06-23 12:49] MED LIST: RAPID SEQUENCE INDUCTION BAG ONE
[2022-06-23 13:28] LABS: Base Excess ABG -10.1 mEq/L (-9-1.8); HCO3 ABG 19 mmol/L (19-24); Oxygen Saturation ABG 95.3 % (90-95); PCO2 ABG 57 mmHg (35-46); PO2 ABG 84 mmHg (80-95)
[2022-06-23 13:31] LABS: Basophils # (auto) 0.03 K/uL (0-0.2); Basophils % (auto) 0.1 %; Eosinophils # (auto) 0.04 K/uL (0-0.50); Eosinophils % (auto) 0.2 %; Hematocrit (blood only) 31.9 % (37.0-47.0); Hemoglobin 9.5 g/dl (12.0-16.0); Immature Granulocytes # (auto) 0.24 K/uL (0.01-0.20); Immature Granulocytes % (auto) 1.1 %; Lymphocytes # (auto) 4.32 K/uL (1.2-3.4); Lymphocytes % (auto) 19.1 %; Mean Corpuscular Hemoglobin 28.4 pg (25.0-34.0); Mean Corpuscular Hgb Conc 29.8 g/dL (32.0-36.0); Mean Corpuscular Volume 95.5 fL (80.0-100.0); Mean Platelet Volume 11.8 fL (9.4-12.4); Monocytes # (auto) 0.61 K/uL (0.11-0.59); Monocytes % (auto) 2.7 %; Neutrophils # (auto) 17.35 K/uL (1.40-6.50); Neutrophils % (auto) 76.8 %; Nucleated RBC # (auto) 0.03 K/uL (0-0.12); Nucleated RBC % (auto) 0.1 %; Platelet Count 566 K/uL (130-400); RDW Coefficient of Variation 18.9 % (11.5-14.5); RDW Standard Deviation 63.7 fL (36.4-46.3); Red Blood Count 3.34 M/uL (4.20-5.40); White Blood Count 22.59 K/ul (4.8-10.8)
--- NOTE | 2022-06-23 13:34 | XRay Report ---
XR chest 1V portable CLINICAL HISTORY: Chest pain, nonspecific COMPARISON STUDY: Chest CT May 08, 2022. Chest radiograph May 27, 2022. FINDINGS: There is no pneumothorax. Small bilateral pleural effusions are present. Lungs are diminish ed. This is unchanged. There has been interval enlargement of extensive bilateral airspace opacities with interstitial thickening. Cardiomediastinal silhouette is grossly stable. There are cholecystecto my clips. Gastrostomy is incidentally noted. IMPRESSION: 1. Interval development of extensive bilateral airspace opacities and interstitial thickening. The fi ndings could reflect pulmonary edema or multifocal pneumonia superimposed upon interstitial lung dise ase. 2. Small bilateral pleural effusions. ACT 112: Negative or not required by law. Electronically signed by: Nadir Fleming M.D. 06/23/2022 1:33 PM
[2022-06-23] MEDS ORDERED: CEFEPIME 2,000 MG/20 ML VIAL IV STA (13:35)
[2022-06-23 13:38] LABS: Allen Test POS (Pos)
[2022-06-23 13:45] LABS: pH ABG 7.14 (7.35-7.45)
[2022-06-23] MEDS ORDERED: VANCOMYCIN CONSULT ACTIVE PRN (13:45)
[2022-06-23] MEDS ORDERED: VANCOMYCIN HCL 1,250 MG in SODIUM CHLORIDE 0.9% 500 ML IV ONE (13:45)
[2022-06-23 13:51] LABS: BUN Creatinine Ratio 51.9 (10-20); Creatinine Clr Calc Pharmacy 59.3 ml/min; Est GFR (African American) 84.7 ml/min; Est GFR (Non-African American) 73.1 ml/min; Potassium 4.1 mmol/L (3.5-5.1); Troponin I High Sensitivity 298.7 pg/ml (0-14)
[2022-06-23 13:53] LABS: INR 1.1 (0.9-1.1); Partial Thromboplastin Time 27.1 Seconds (21.0-31.0); Prothrombin Time 12.3 Seconds (9.0-12.0)
--- NOTE | 2022-06-23 13:55 | Emergency Department Note ---
History of Present Illness General Chief Complaint: Respiratory Distress Stated Complaint: short of breath Time Seen by Provider: 06/23/22 12:52 History of Present Illness Provider Complaint: shortness of breath Onset (ago): hour(s) (1) Severity: severe Consistency/Duration: + progressively worsening Relieved By: + oxygen and + upright position Exacerbated By: + lying flat Associated symptoms: + cough, + sputum production and + orthopnea Treatment prior to arrival: NIPPV, nitroglycerin and diuretics HPI Narrative: 72-year-old female with history of cancer was receiving IVIG infusion at [facility] when she developed sudden onset of shortness of breath. Is thought that the patient was in flash pulmonary edema the patient was given Lasix 40 mg IV push prior to arrival via [facility]. EMS arrived and the patient was hypertensive and having difficulty breathing. Patient was placed on CPAP and given 4 sprays of nitroglycerin. Patient has paperwork at bedside stating she is a DNI. Home Medications Medication Instructions Recorded Confirmed Type pantoprazole 40 mg tablet,delayed 40 mg PO QAM #30 tabs 05/23/22 06/23/22 Rx release aspirin 81 mg tablet,delayed 81 mg feeding tube QAM #90 tabs 06/01/22 06/23/22 Rx release atorvastatin 40 mg tablet 40 mg feeding tube QAM #30 tabs 06/01/22 06/23/22 Rx doxepin 50 mg capsule 50 - 150 mg feeding tube HS PRN 06/01/22 06/23/22 Rx Sleep #30 caps furosemide 20 mg tablet (Lasix) 20 mg feeding tube 3XWK #30 tabs 06/01/22 06/23/22 Rx lansoprazole 30 mg delayed 30 mg PEG BID #60 tabs 06/01/22 06/23/22 Rx release,disintegrating tablet (Prevacid SoluTab) levetiracetam 100 mg/mL oral 500 mg (5 mL) PEG BID #200 mL 06/01/22 06/23/22 Rx solution (Keppra) metoprolol tartrate 25 mg tablet 12.5 mg feeding tube BID #30 tabs 06/01/22 06/23/22 Rx mycophenolate mofetil 200 mg/mL 1,000 mg (5 mL) PEG BID #160 mL 06/01/22 06/23/22 Rx oral suspension (CellCept) polyethylene glycol 3350 17 gram 17 g PEG DAILY PRN constipation 06/01/22 06/23/22 Rx oral powder packet (Miralax) #30 ea potassium chloride 20 mEq/15 mL 10 meq (7.5 mL) PO MoWeFr@0900 06/01/22 06/23/22 Rx oral liquid #450 mL sucralfate 100 mg/mL oral 1 g (10 mL) PEG QID #400 mL 06/01/22 06/23/22 Rx suspension clopidogrel 75 mg tablet 75 mg feeding tube DAILY 06/23/22 06/23/22 History gabapentin 100 mg capsule 100 mg feeding tube BID 06/23/22 06/23/22 History spironolactone 25 mg tablet 12.5 mg feeding tube DAILY 06/23/22 06/23/22 History (Aldactone) Allergies Allergy/AdvReac Type Severity Reaction Status Date / Time No Known Allergies Allergy Verified 05/29/22 09:05 Past Med/Surg History Medical History Acute dyspnea Acute metabolic encephalopathy Acute respiratory failure with hypoxia Advanced care planning/counseling discussion Anemia Aspiration pneumonia CHF (congestive heart failure) Dermatomyositis DVT prophylaxis Dysphagia Elevated troponin Encounter for pre-operative examination History of CVA (cerebrovascular accident) History of seizures Interstitial lung disease Palliative care by specialist Pneumonia Pulmonary hypertension Rhabdomyolysis Shortness of breath UTI (urinary tract infection) Weakness Weakness generalized Surgical History History of hysterectomy Family History Other Cancer Heart disease Social History Smoking Status: Former smoker Tobacco Type: Cigarettes Second Hand Exposure: No; Do You Dip or Chew Tobacco: No; Hx Alcohol Use: No Hx Substance Use: No Preferred Language: Kyrgyz Communication Ability: Effective Communication Ability Comment: currently having some aphasia Oleomarg[employer] Required: No Beliefs That Will Affect Care: None marital status: Single Current Living Situation: Rehab Current Living Situation Comment: [facility] Feels Safe at Home: Yes Assistive Devices: Walker Physical Exam Vital Signs: Vital Signs - 24 hr 06/23/22 13:06 06/23/22 13:04 06/23/22 13:06 Pulse Rate 118 H 118 H 116 H Pulse Rate [Apical ] Pulse Rate from Sp O2 Sensor Respiratory Rate 33 H 22 Respiratory Effort / Characteristics Spontaneous Labore d Respiratory Depth Normal Respiratory Patter n Regular Blood Pressure Blood Pressure [Ri ght Arm] Blood Pressure Wendy n Blood Pressure Wendy n [Right Arm] Blood Pressure Pos ition [Right Arm] Pulse Oximetry 98 97 Oxygen Delivery Me thod BiPAP Fraction of Inspir ed Oxygen 100 100 SaO2/FiO2 Ratio 98 Sepsis Recent Feve r Within 48 Hours Sepsis New/Unexpla ined Change in Men kathryn Status Sepsis Action Take n by Nursing 06/23/22 13:24 06/23/22 12:40 06/23/22 12:40 Pulse Rate 116 H Pulse Rate [Apical ] 115 H Pulse Rate from Sp O2 Sensor Respiratory Rate 34 H 29 H Respiratory Effort / Characteristics Short of Breath Short of Breath Short of Breath Respiratory Depth Respiratory Patter n Blood Pressure 158/100 H Blood Pressure [Ri ght Arm] 121/95 Blood Pressure Wendy n 119 Blood Pressure Wendy n [Right Arm] 103 Blood Pressure Pos ition [Right Arm] Sitting Pulse Oximetry 90 92 Oxygen Delivery Me thod BiPAP BiPAP BiPAP Fraction of Inspir ed Oxygen 100 100 100 SaO2/FiO2 Ratio 90 92 Sepsis Recent Feve r Within 48 Hours No Sepsis New/Unexpla ined Change in Men kathryn Status No Sepsis Action Take n by Nursing Physician Notified 06/23/22 13:01 06/23/22 13:05 06/23/22 13:05 Pulse Rate 117 H 118 H Pulse Rate [Apical ] Pulse Rate from Sp O2 Sensor 118 H 120 H Respiratory Rate 32 H 33 H Respiratory Effort / Characteristics Respiratory Depth Respiratory Patter n Blood Pressure 131/105 H Blood Pressure [Ri ght Arm] Blood Pressure Wendy n 113 Blood Pressure Wendy n [Right Arm] Blood Pressure Pos ition [Right Arm] Pulse Oximetry 97 97 Oxygen Delivery Me thod Fraction of Inspir ed Oxygen 100 100 SaO2/FiO2 Ratio Sepsis Recent Feve r Within 48 Hours Sepsis New/Unexpla ined Change in Men kathryn Status Sepsis Action Take n by Nursing 06/23/22 13:08 06/23/22 13:08 06/23/22 13:10 Pulse Rate 115 H 116 H Pulse Rate [Apical ] Pulse Rate from Sp O2 Sensor 117 H 115 H Respiratory Rate 30 H 31 H Respiratory Effort / Characteristics Respiratory Depth Respiratory Patter n Blood Pressure 134/103 H Blood Pressure [Ri ght Arm] Blood Pressure Wendy n 113 Blood Pressure Wendy n [Right Arm] Blood Pressure Pos ition [Right Arm] Pulse Oximetry 96 97 Oxygen Delivery Me thod Fraction of Inspir ed Oxygen 100 100 SaO2/FiO2 Ratio Sepsis Recent Feve r Within 48 Hours Sepsis New/Unexpla ined Change in Men kathryn Status Sepsis Action Take n by Nursing 06/23/22 13:16 06/23/22 13:16 06/23/22 13:20 Pulse Rate 114 H 118 H Pulse Rate [Apical ] Pulse Rate from Sp O2 Sensor 113 H 121 H Respiratory Rate 27 H 29 H Respiratory Effort / Characteristics Respiratory Depth Respiratory Patter n Blood Pressure 111/80 Blood Pressure [Ri ght Arm] Blood Pressure Wendy n 90 Blood Pressure Wendy n [Right Arm] Blood Pressure Pos ition [Right Arm] Pulse Oximetry 90 88 L Oxygen Delivery Me thod Fraction of Inspir ed Oxygen 100 100 SaO2/FiO2 Ratio Sepsis Recent Feve r Within 48 Hours Sepsis New/Unexpla ined Change in Men kathryn Status Sepsis Action Take n by Nursing 06/23/22 13:30 06/23/22 13:30 06/23/22 13:40 Pulse Rate 120 H 107 H Pulse Rate [Apical ] Pulse Rate from Sp O2 Sensor 107 H Respiratory Rate 26 H 27 H Respiratory Effort / Characteristics Respiratory Depth Respiratory Patter n Blood Pressure 121/95 Blood Pressure [Ri ght Arm] Blood Pressure Wendy n 103 Blood Pressure Wendy n [Right Arm] Blood Pressure Pos ition [Right Arm] Pulse Oximetry 80 L Oxygen Delivery Me thod Fraction of Inspir ed Oxygen 100 100 SaO2/FiO2 Ratio Sepsis Recent Feve r Within 48 Hours Sepsis New/Unexpla ined Change in Men kathryn Status Sepsis Action Take n by Nursing 06/23/22 13:45 06/23/22 13:45 06/23/22 13:50 Pulse Rate 119 H 120 H Pulse Rate [Apical ] Pulse Rate from Sp O2 Sensor 118 H 121 H Respiratory Rate 32 H 29 H Respiratory Effort / Characteristics Respiratory Depth Respiratory Patter n Blood Pressure 147/101 H Blood Pressure [Ri ght Arm] Blood Pressure Wendy n 116 Blood Pressure Wendy n [Right Arm] Blood Pressure Pos ition [Right Arm] Pulse Oximetry 94 89 L Oxygen Delivery Me thod Fraction of Inspir ed Oxygen 100 100 SaO2/FiO2 Ratio Sepsis Recent Feve r Within 48 Hours Sepsis New/Unexpla ined Change in Men kathryn Status Sepsis Action Take n by Nursing 06/23/22 14:00 06/23/22 14:00 06/23/22 14:10 Pulse Rate 108 H 117 H Pulse Rate [Apical ] Pulse Rate from Sp O2 Sensor 106 H 117 H Respiratory Rate 28 H 29 H Respiratory Effort / Characteristics Respiratory Depth Respiratory Patter n Blood Pressure 126/97 Blood Pressure [Ri ght Arm] Blood Pressure Wendy n 106 Blood Pressure Wendy n [Right Arm] Blood Pressure Pos ition [Right Arm] Pulse Oximetry 80 L 91 Oxygen Delivery Me thod Fraction of Inspir ed Oxygen 100 100 SaO2/FiO2 Ratio Sepsis Recent Feve r Within 48 Hours Sepsis New/Unexpla ined Change in Men kathryn Status Sepsis Action Take n by Nursing 06/23/22 14:15 06/23/22 14:15 06/23/22 14:20 Pulse Rate 115 H 115 H Pulse Rate [Apical ] Pulse Rate from Sp O2 Sensor 115 H 115 H Respiratory Rate 28 H 27 H Respiratory Effort / Characteristics Respiratory Depth Respiratory Patter n Blood Pressure 135/94 Blood Pressure [Ri ght Arm] Blood Pressure Wendy n 107 Blood Pressure Wendy n [Right Arm] Blood Pressure Pos ition [Right Arm] Pulse Oximetry 93 88 L Oxygen Delivery Me thod Fraction of Inspir ed Oxygen 100 100 SaO2/FiO2 Ratio Sepsis Recent Feve r Within 48 Hours Sepsis New/Unexpla ined Change in Men kathryn Status Sepsis Action Take n by Nursing 06/23/22 14:31 06/23/22 14:45 Pulse Rate Pulse Rate [Apical ] Pulse Rate from Sp O2 Sensor Respiratory Rate Respiratory Effort / Characteristics Non-Labored Sponta neous Respiratory Depth Normal Respiratory Patter n Regular Tachypnea Blood Pressure 118/90 Blood Pressure [Ri ght Arm] Blood Pressure Wendy n 99 Blood Pressure Wendy n [Right Arm] Blood Pressure Pos ition [Right Arm] Pulse Oximetry Oxygen Delivery Me thod BiPAP Fraction of Inspir ed Oxygen 100 SaO2/FiO2 Ratio Sepsis Recent Feve r Within 48 Hours Sepsis New/Unexpla ined Change in Men kathryn Status Sepsis Action Take n by Nursing Physical Exam: Physical Exam GENERAL: Respiratory distress. HENT: Exam performed. -Head: Normocephalic and atraumatic. NECK: Normal range of motion. Neck supple. JVD present. CV: Tachycardic rate, regular rhythm, normal heart sounds and intact distal pulses. Palpable radial pulses bue. PULM/CHEST: Rales bilaterally. ABD: The abdomen is soft. PEG tube present. MUSC/SKEL: 3+ pitting edema of the bilateral lower extremities. Course Course 1252: The patient was evaluated in room A1. A complete history and physical exam was performed Cardiac monitoring: An order was placed for continuous cardiac monitoring. The monitor shows a rate of 110 with sinus rhythm interpreted by me Patient was transitioned from CPAP via EMS to BiPAP. 1323: Patient coughing up pink frothy sputum. I again asked the patient if she would like to be placed on a ventilator to help control her breathing and make her breathing easier and she adamantly stated she did not want to be placed on a ventilator. 1352: Vital signs stable on BiPAP. Labs show leukocytosis of 22. Chest x-ray reviewed by me shows cardiomegaly with cephalization. Formal read states he cannot differentiate between fluid overload and multifocal pneumonia. Patient treated with cefepime and vancomycin. ABG shows a pH of 7.14 with a PCO2 of 57. Troponin 298.7 BNP 1235. Patient will be admitted to the [facility]. Spoke with Aure who stated to admit to Dr. Valdovinos Administered Medications Discontinued Medications Cefepime HCl (Maxipime) 2,000 mg in 20 mls @ 5 mls/min IV NOW STA; Protocol Stop: 06/23/22 13:38 Last Admin: 06/23/22 13:46 Dose: 5 mls/min Documented By: NA Vancomycin HCl 1,250 mg/ (Sodium Chloride) 525 mls @ 200 mls/hr IV NOW ONE Stop: 06/23/22 16:22 Last Admin: 06/23/22 14:04 Dose: 200 mls/hr Documented By: NA Morphine Sulfate (Morphine Sulf/Nss) 250 mg in 250 mls @ 2 mls/hr IV .Q96H [facility]; Protocol Stop: 07/07/22 17:14 Last Titration: 06/23/22 17:36 Dose: 2 mg/hr, 2 mls/hr Documented By: GPBeth Co-signed By: JAYME Admin: 06/23/22 17:33 Dose: 1 mg/hr, 1 mls/hr Documented By: GPF Co-signed By: JAYME Lorazepam (Lorazepam 2 Mg/1 Ml Vial) 0.5 mg IV Q4H PRN PRN Reason: Anxiety/Agitation Stop: 07/23/22 16:57 Last Admin: 06/23/22 17:32 Dose: 0.5 mg Documented By: GPF Miscellaneous (Rapid Sequence Induction Bag) Confirm Administered Dose 1 each N/A .STK-MED ONE Stop: 06/23/22 12:43 Last Admin: 06/23/22 13:45 Dose: Not Given Documented By: DILLON Miscellaneous (Icu Protocol For Hyperglycemia) 1 each N/A ACHS JONATHAN Stop: 06/25/22 16:29 Last Admin: 06/23/22 17:40 Dose: Not Given Documented By: GPF Morphine Sulfate (Morphine Bolus From Bag) 1 mg IV Q30M PRN PRN Reason: Comfort Care Parameters Stop: 07/07/22 17:07 Last Admin: 06/23/22 17:33 Dose: 1 mg Documented By: GPF Co-signed By: JAYME Sucralfate (Sucralfate 1 Gm/10 Ml Udc) 1 gm PEG QID JONATHAN Stop: 07/23/22 16:59 Last Admin: 06/23/22 17:41 Dose: Not Given Documented By: GPF Medical Decision Making Laboratory Data Attestation: I reviewed the patient's lab results. 06/23/22 13:03 06/23/22 13:03 Lab Results 06/23/22 06/23/22 06/23/22 Range/Units 13:01 13:03 13:03 WBC (4.8-10.8) K/ul RBC (4.20-5.40) M/uL Hgb (12.0-16.0) g/dl Hct (37.0-47.0) % MCV (80.0-100.0) fL MCH (25.0-34.0) pg MCHC (32.0-36.0) g/dL RDW Std Deviation (36.4-46.3) fL RDW Coeff of Myra (11.5-14.5) % Plt Count (130-400) K/uL MPV (9.4-12.4) fL Immature Gran % (Auto) % Neut % (Auto) % Lymph % (Auto) % Nuckolls % (Auto) % Eos % (Auto) % Baso % (Auto) % Neut # (Auto) (1.40-6.50) K/uL Lymph # (Auto) (1.2-3.4) K/uL Nuckolls # (Auto) (0.11-0.59) K/uL Eos # (Auto) (0-0.50) K/uL Baso # (Auto) (0-0.2) K/uL Immature Gran # (Auto) (0.01-0.20) K/uL Absolute Nucleated RBC (0-0.12) K/uL Nucleated RBC % (auto) % PT (9.0-12.0) Seconds INR (0.9-1.1) APTT (21.0-31.0) Seconds PTT Ratio ABG pH 7.14 L* (7.35-7.45) ABG pCO2 57 H (35-46) mmHg ABG pO2 84 (80-95) mmHg ABG HCO3 19 (19-24) mmol/L ABG O2 Saturation 95.3 H (90-95) % ABG Base Excess -10.1 L (-9-1.8) mEq/L Jabari Test POS (Pos) Oxygen Given 100% Sodium 131 L (136-145) mmol/L Potassium 4.1 (3.5-5.1) mmol/L Chloride 99 (98-107) mmol/L Carbon Dioxide 19 L (21-32) mmol/L Anion Gap 13 H (3-11) BUN 42 H (6-23) mg/dl Creatinine 0.81 (0.6-1.2) mg/dl Est Cr Clr Drug Dosing 59.3 ml/min Est GFR ( Amer) 84.7 ml/min Est GFR (Non-Af Amer) 73.1 ml/min BUN/Creatinine Ratio 51.9 H (10-20) Glucose 314 H* (70-99(Fasting)) mg/dl Calcium 8.0 L (8.6-10.3) mg/dl Troponin I High Sens 298.7 H* (0-14) pg/ml B-Natriuretic Peptide (0-100) pg/ml Lipase 76 (11-82) U/L SARS-CoV-2, RNA, NAAT NEGATIVE (NEGATIVE) 06/23/22 06/23/22 06/23/22 Range/Units 13:03 13:03 13:03 WBC 22.59 H (4.8-10.8) K/ul RBC 3.34 L (4.20-5.40) M/uL Hgb 9.5 L (12.0-16.0) g/dl Hct 31.9 L (37.0-47.0) % MCV 95.5 (80.0-100.0) fL MCH 28.4 (25.0-34.0) pg MCHC 29.8 L (32.0-36.0) g/dL RDW Std Deviation 63.7 H (36.4-46.3) fL RDW Coeff of Myra 18.9 H (11.5-14.5) % Plt Count 566 H D (130-400) K/uL MPV 11.8 (9.4-12.4) fL Immature Gran % (Auto) 1.1 % Neut % (Auto) 76.8 % Lymph % (Auto) 19.1 % Nuckolls % (Auto) 2.7 % Eos % (Auto) 0.2 % Baso % (Auto) 0.1 % Neut # (Auto) 17.35 H (1.40-6.50) K/uL Lymph # (Auto) 4.32 H (1.2-3.4) K/uL Nuckolls # (Auto) 0.61 H (0.11-0.59) K/uL Eos # (Auto) 0.04 (0-0.50) K/uL Baso # (Auto) 0.03 (0-0.2) K/uL Immature Gran # (Auto) 0.24 H (0.01-0.20) K/uL Absolute Nucleated RBC 0.03 (0-0.12) K/uL Nucleated RBC % (auto) 0.1 % PT 12.3 H (9.0-12.0) Seconds INR 1.1 (0.9-1.1) APTT 27.1 (21.0-31.0) Seconds PTT Ratio 1.0 ABG pH (7.35-7.45) ABG pCO2 (35-46) mmHg ABG pO2 (80-95) mmHg ABG HCO3 (19-24) mmol/L ABG O2 Saturation (90-95) % ABG Base Excess (-9-1.8) mEq/L Jabari Test (Pos) Oxygen Given Sodium (136-145) mmol/L Potassium (3.5-5.1) mmol/L Chloride (98-107) mmol/L Carbon Dioxide (21-32) mmol/L Anion Gap (3-11) BUN (6-23) mg/dl Creatinine (0.6-1.2) mg/dl Est Cr Clr Drug Dosing ml/min Est GFR ( Amer) ml/min Est GFR (Non-Af Amer) ml/min BUN/Creatinine Ratio (10-20) Glucose (70-99(Fasting)) mg/dl Calcium (8.6-10.3) mg/dl Troponin I High Sens (0-14) pg/ml B-Natriuretic Peptide 1235 H (0-100) pg/ml Lipase (11-82) U/L SARS-CoV-2, RNA, NAAT (NEGATIVE) Imaging Data Attestation: I personally reviewed and interpreted this imaging study as follows: My Impression: Chest x-ray: Cardiomegaly with fluid overload Radiologist's Impression: Chest X-Ray 06/23/22 12:53 XR chest 1V portable CLINICAL HISTORY: Chest pain, nonspecific COMPARISON STUDY: Chest CT May 08, 2022. Chest radiograph May 27, 2022. FINDINGS: There is no pneumothorax. Small bilateral pleural effusions are present. Lungs are diminished. This is unchanged. There has been interval enlargement of extensive bilateral airspace opacities with interstitial thickening. Cardiomediastinal silhouette is grossly stable. There are cholecystectomy clips. Gastrostomy is incidentally noted. IMPRESSION: 1. Interval development of extensive bilateral airspace opacities and interstitial thickening. The findings could reflect pulmonary edema or multifocal pneumonia superimposed upon interstitial lung disease. 2. Small bilateral pleural effusions. ACT 112: Negative or not required by law. Electronically signed by: Nadir Fleming M.D. 06/23/2022 1:33 PM ECG Data Attestation: I personally reviewed and interpreted this ECG as follows: Interpretation: Sinus rhythm with a rate of 118. VT QRS and QTc intervals within normal limits. No ST elevation or ST depression. Left ventricular hypertrophy present. Right bundle branch block present. T wave inversion lead aVL. [facility] Narrative 1252: The patient was evaluated in room A1. A complete history and physical exam was performed Cardiac monitoring: An order was placed for continuous cardiac monitoring. The monitor shows a rate of 110 with sinus rhythm interpreted by me Patient was transitioned from CPAP via EMS to BiPAP. 1323: Patient coughing up pink frothy sputum. I again asked the patient if she would like to be placed on a ventilator to help control her breathing and make her breathing easier and she adamantly stated she did not want to be placed on a ventilator. 1352: Vital signs stable on BiPAP. Labs show leukocytosis of 22. Chest x-ray reviewed by me shows cardiomegaly with cephalization. Formal read states he cannot differentiate between fluid overload and multifocal pneumonia. Patient treated with cefepime and vancomycin. ABG shows a pH of 7.14 with a PCO2 of 57. Troponin 298.7 BNP 1235. Patient will be admitted to the [facility] team. Spoke with Aure who stated to admit to Dr. Valdovinos Impression & Plan Hypoxia, Flash pulmonary edema, Multifocal pneumonia Critical Care Time Critical Care Time: Yes Total Critical Care Time: 54 I have personally spent greater than 54 minutes of critical care time in the direct management of this patient. This includes bedside care, interpretation of diagnostic studies, and testing, discussion with consultants, patient, and family members, and other required patient management activities. This 54 minutes is in excess of all separately billable procedures. Discharge Plan Visit Data Chief Complaint: Respiratory Distress Stated Complaint: short of breath ED Provider: Milton Mejia Discharge Problem: Hypoxia, Flash pulmonary edema, Multifocal pneumonia Patient Disposition: Admitted As Inpatient Discharge Instructions Interventions: ED Discharge Assessment Last Done: 06/23/22 15:31
--- NOTE | 2022-06-23 14:07 | Electrocardiogram Report ---
Test Reason : Blood Pressure : / mmHG Vent. Rate : 118 BPM Atrial Rate : 118 BPM P-R Int : 144 ms QRS Dur : 098 ms QT Int : 316 ms P-R-T Axes : 051 -43 095 degrees QTc Int : 442 ms Sinus tachycardia with frequent , and consecutive Premature ventricular complexes Left axis deviation Incomplete right bundle branch block Left ventricular hypertrophy with repolarization abnormality Inferior infarct , age undetermined Abnormal ECG When compared with ECG of 31-MAY-2022 15:36, Sinus rhythm has replaced Atrial fibrillation Minimal criteria for Septal infarct are no longer Present Confirmed by Armand Polanco ([id number]) on 06/23/2022 2:07:46 PM Referred By: Confirmed By:Armand Polanco
[2022-06-23] MEDS ORDERED: POLYETHYLENE (MIRALAX) 17 GM PACK PEG PRN (16:00)
--- NOTE | 2022-06-23 16:14 | History & Physical Report ---
Date of Service June 23, 2022 Assessment & Plan (1) Acute hypercapnic respiratory failure: (2) Acute hypoxemic respiratory failure: (3) Flash pulmonary edema: Plan: 72yo F with a PMH of dysphagia and esophagitis status post PEG placement on 05/18/2022, pulmonary hypertension, CHF, dermatomyositis, ILD, Raynaud's disease, history of CVA, history of seizures, history of tobacco use, polyneuropathy presented from [facility] for worsening shortness of breath. CXR showed interval development of extensive bilateral airspace opacities and interstitial thickening. Received IV lasix 40mg prior arrived in the ER ABG showed pH 7.14/ pCO2 57, pHCO3 19 on admission BNP 1235 on admission She was placed on Bipap in the ER Will admit in the ICU, case discussed with the ICU team dr. Kimbrough Will consider to give additional lasix if BP stable Received cefepime and vanco in the ER Pt refused to keep the Bipap on She wants to be DNR/DNI Will consult palliative care for goal of care Continue monitor closely Elevated Troponin Demand ischemia due to acute hypoxia respiratory failure Denies any chest pain EKG showed no ichemic changes Will consult cardiology Elevated WBC Possible reactive, but need to r/o infectious etiology WBC 22K on admission Received IV Vanco and Cefepime in the ER Will check procalcitonin and blood cx Continue monitor CBC Hyponatremia Possible related to elevated glucose Continue monitor Dermatomyositis: Follows with Rheumatology; Dr. Moncada. Will reach out for recommendations Case discussed with Dr. Hobson that recommended to hold Cellcept H/O seizures: -On Keppra; continue H/O CVA: Continue antiplatelet therapy (ASA and Plavix) + statin; continue GERD: -Takes TUMS; was on Protonix but DC due to interfering with CellCept Disposition: Will monitor closely in the ICU Code status DNR Admission and Anticipated Discharge Date Admission Date: June 23, 2022 History of Present Illness Chief Complaint: SOB Primary Care Provider: VIRY Felipe 72yo F with a PMH of dysphagia and esophagitis status post PEG placement on 05/18/2022, pulmonary hypertension, CHF, dermatomyositis, ILD, Raynaud's disease, history of CVA, history of seizures, history of tobacco use, polyneuropathy presented from [facility] for worsening shortness of breath. History obtained from pt, ER provider and daughter over the phone. This morning Pt was at the [facility] for IV IG infusion when she developed SOB. Daughter said that she had IV IG yesterday as well. Daughter said on Sunday when she saw her, she had edema in her lower extremities. Daughter said that she did not complaint of any SOB on Sunday or yesterday. Daughter said that pt was spitting phlegm out on Sunday. Pt is on continuous tube feeding and she takes lasix 20mg 3 times a week. Pt said that this morning suddenly she could not breath. She was given lasix 40mg IV given at [facility] prior to arrival via [facility]. EMS was called she was placed on CPAP and given 4 sprays of nitroglycerin. In the ER ABG showed pH 7.14/ pCO2 57, pHCO3 19 , Troponin 298 and BNP 1235. CXR showed Interval development of extensive bilateral airspace opacities and interstitial thickening. She was placed on bipap. She does not want to keep the BIPAP on. She said that she cannot breath with it. She made it clear that she wants to be DNI/DNR. Denies any chest pain, palpitation, dizziness and fever. Allergies Allergy/AdvReac Type Severity Reaction Status Date / Time No Known Allergies Allergy Verified 05/29/22 09:05 Home Medications Medication Instructions Recorded Confirmed Type pantoprazole 40 mg tablet,delayed 40 mg PO QAM #30 tabs 05/23/22 06/23/22 Rx release aspirin 81 mg tablet,delayed 81 mg feeding tube QAM #90 tabs 06/01/22 06/23/22 Rx release atorvastatin 40 mg tablet 40 mg feeding tube QAM #30 tabs 06/01/22 06/23/22 Rx doxepin 50 mg capsule 50 - 150 mg feeding tube HS PRN 06/01/22 06/23/22 Rx Sleep #30 caps furosemide 20 mg tablet (Lasix) 20 mg feeding tube 3XWK #30 tabs 06/01/22 06/23/22 Rx lansoprazole 30 mg delayed 30 mg PEG BID #60 tabs 06/01/22 06/23/22 Rx release,disintegrating tablet (Prevacid SoluTab) levetiracetam 100 mg/mL oral 500 mg (5 mL) PEG BID #200 mL 06/01/22 06/23/22 Rx solution (Keppra) metoprolol tartrate 25 mg tablet 12.5 mg feeding tube BID #30 tabs 06/01/22 06/23/22 Rx mycophenolate mofetil 200 mg/mL 1,000 mg (5 mL) PEG BID #160 mL 06/01/22 06/23/22 Rx oral suspension (CellCept) polyethylene glycol 3350 17 gram 17 g PEG DAILY PRN constipation 06/01/22 06/23/22 Rx oral powder packet (Miralax) #30 ea potassium chloride 20 mEq/15 mL 10 meq (7.5 mL) PO MoWeFr@0900 06/01/22 06/23/22 Rx oral liquid #450 mL sucralfate 100 mg/mL oral 1 g (10 mL) PEG QID #400 mL 06/01/22 06/23/22 Rx suspension clopidogrel 75 mg tablet 75 mg feeding tube DAILY 06/23/22 06/23/22 History gabapentin 100 mg capsule 100 mg feeding tube BID 06/23/22 06/23/22 History spironolactone 25 mg tablet 12.5 mg feeding tube DAILY 06/23/22 06/23/22 History (Aldactone) Past Med/Surg History Medical History Acute dyspnea Acute metabolic encephalopathy Acute respiratory failure with hypoxia Advanced care planning/counseling discussion Anemia Aspiration pneumonia CHF (congestive heart failure) Dermatomyositis DVT prophylaxis Dysphagia Elevated troponin Encounter for pre-operative examination History of CVA (cerebrovascular accident) History of seizures Interstitial lung disease Palliative care by specialist Pneumonia Pulmonary hypertension Rhabdomyolysis Shortness of breath UTI (urinary tract infection) Weakness Weakness generalized Surgical History History of hysterectomy Family History Other Cancer Heart disease Social History Smoking Status: Former smoker Tobacco Type: Cigarettes Second Hand Exposure: No; Do You Dip or Chew Tobacco: No; Hx Alcohol Use: No Hx Substance Use: No Preferred Language: Urdu Communication Ability: Effective Communication Ability Comment: currently having some aphasia 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 Beliefs That Will Affect Care: None marital status: Single Current Living Situation: Rehab Current Living Situation Comment: [facility] Feels Safe at Home: Yes Assistive Devices: Walker Review of Systems Review of Systems: All systems reviewed & are unremarkable except as noted in HPI & below Physical Exam Physical Exam: General- +acute respiratory distress Head- atraumatic Eyes- PERRL, EOMI, ENT- o+bipap Neck- supple, no JVD Lungs-+ crackles, +tachypneic Heart- r+murmur Abdomen- +peg tube, nontender Extremities- +pitting edema Neuro- alert, oriented x 3; PERRL, EOMI; no facial palsy; Results & Data Results & Data Vital Signs (Past 12 Hours) Vital Signs Pulse Pulse Resp BP BP Pulse Ox O2 Del Method 06/23/22 15:20 115 H 29 H 90 06/23/22 15:16 116 H 30 H 88 L 06/23/22 15:16 114/91 06/23/22 15:10 113 H 29 H 91 06/23/22 15:01 137/74 06/23/22 15:01 115 H 32 H 90 06/23/22 15:00 115 H 30 H 91 06/23/22 14:50 106 H 29 H 90 06/23/22 14:31 118/90 06/23/22 14:20 115 H 27 H 88 L 06/23/22 14:15 135/94 06/23/22 14:15 115 H 28 H 93 06/23/22 14:10 117 H 29 H 91 06/23/22 14:00 108 H 28 H 80 L 06/23/22 14:00 126/97 06/23/22 13:50 120 H 29 H 89 L 06/23/22 13:45 119 H 32 H 94 06/23/22 13:45 147/101 H 06/23/22 13:40 107 H 27 H 80 L 06/23/22 13:30 120 H 26 H 06/23/22 13:30 121/95 06/23/22 13:20 118 H 29 H 88 L 06/23/22 13:16 114 H 27 H 90 06/23/22 13:16 111/80 06/23/22 13:10 116 H 31 H 97 06/23/22 13:08 115 H 30 H 96 06/23/22 13:08 134/103 H 06/23/22 13:05 118 H 33 H 97 06/23/22 13:05 131/105 H 06/23/22 13:01 117 H 32 H 97 06/23/22 12:40 BiPAP 06/23/22 12:40 116 H 29 H 158/100 H 92 BiPAP 06/23/22 13:24 115 H 34 H 121/95 90 BiPAP 06/23/22 13:06 116 H 22 97 06/23/22 13:04 118 H 06/23/22 13:06 118 H 33 H 98 BiPAP FiO2 06/23/22 15:20 100 06/23/22 15:16 100 06/23/22 15:16 06/23/22 15:10 100 06/23/22 15:01 06/23/22 15:01 100 06/23/22 15:00 100 06/23/22 14:50 100 06/23/22 14:31 06/23/22 14:20 100 06/23/22 14:15 06/23/22 14:15 100 06/23/22 14:10 100 06/23/22 14:00 100 06/23/22 14:00 06/23/22 13:50 100 06/23/22 13:45 100 06/23/22 13:45 06/23/22 13:40 100 06/23/22 13:30 100 06/23/22 13:30 06/23/22 13:20 100 06/23/22 13:16 100 06/23/22 13:16 06/23/22 13:10 100 06/23/22 13:08 100 06/23/22 13:08 06/23/22 13:05 100 06/23/22 13:05 06/23/22 13:01 100 06/23/22 12:40 100 06/23/22 12:40 100 06/23/22 13:24 100 06/23/22 13:06 100 06/23/22 13:04 06/23/22 13:06 100 Diagnostic Findings Laboratory Results WBC 22.59 K/ul (4.8-10.8) H 06/23/22 13:03 RBC 3.34 M/uL (4.20-5.40) L 06/23/22 13:03 Hgb 9.5 g/dl (12.0-16.0) L 06/23/22 13:03 Hct 31.9 % (37.0-47.0) L 06/23/22 13:03 MCV 95.5 fL (80.0-100.0) 06/23/22 13:03 MCH 28.4 pg (25.0-34.0) 06/23/22 13:03 MCHC 29.8 g/dL (32.0-36.0) L 06/23/22 13:03 RDW Std Deviation 63.7 fL (36.4-46.3) H 06/23/22 13:03 RDW Coeff of Myra 18.9 % (11.5-14.5) H 06/23/22 13:03 Plt Count 566 K/uL (130-400) H D 06/23/22 13:03 MPV 11.8 fL (9.4-12.4) 06/23/22 13:03 Immature Gran % (Auto) 1.1 % 06/23/22 13:03 Neut % (Auto) 76.8 % 06/23/22 13:03 Lymph % (Auto) 19.1 % 06/23/22 13:03 [place] % (Auto) 2.7 % 06/23/22 13:03 Eos % (Auto) 0.2 % 06/23/22 13:03 Baso % (Auto) 0.1 % 06/23/22 13:03 Neut # (Auto) 17.35 K/uL (1.40-6.50) H 06/23/22 13:03 Lymph # (Auto) 4.32 K/uL (1.2-3.4) H 06/23/22 13:03 [place] # (Auto) 0.61 K/uL (0.11-0.59) H 06/23/22 13:03 Eos # (Auto) 0.04 K/uL (0-0.50) 06/23/22 13:03 Baso # (Auto) 0.03 K/uL (0-0.2) 06/23/22 13:03 Immature Gran # (Auto) 0.24 K/uL (0.01-0.20) H 06/23/22 13:03 Absolute Nucleated RBC 0.03 K/uL (0-0.12) 06/23/22 13:03 Nucleated RBC % (auto) 0.1 % 06/23/22 13:03 PT 12.3 Seconds (9.0-12.0) H 06/23/22 13:03 INR 1.1 (0.9-1.1) 06/23/22 13:03 APTT 27.1 Seconds (21.0-31.0) 06/23/22 13:03 PTT Ratio 1.0 06/23/22 13:03 ABG pH 7.14 (7.35-7.45) L* 06/23/22 13:03 ABG pCO2 57 mmHg (35-46) H 06/23/22 13:03 ABG pO2 84 mmHg (80-95) 06/23/22 13:03 ABG HCO3 19 mmol/L (19-24) 06/23/22 13:03 ABG O2 Saturation 95.3 % (90-95) H 06/23/22 13:03 ABG Base Excess -10.1 mEq/L (-9-1.8) L 06/23/22 13:03 Jabari Test POS (Pos) 06/23/22 13:03 Oxygen Given 100% 06/23/22 13:03 Sodium 131 mmol/L (136-145) L 06/23/22 13:03 Potassium 4.1 mmol/L (3.5-5.1) 06/23/22 13:03 Chloride 99 mmol/L (98-107) 06/23/22 13:03 Carbon Dioxide 19 mmol/L (21-32) L 06/23/22 13:03 Anion Gap 13 (3-11) H 06/23/22 13:03 BUN 42 mg/dl (6-23) H 06/23/22 13:03 Creatinine 0.81 mg/dl (0.6-1.2) 06/23/22 13:03 Est Cr Clr Drug Dosing 59.3 ml/min 06/23/22 13:03 Est GFR ( Amer) 84.7 ml/min 06/23/22 13:03 Est GFR (Non-Af Amer) 73.1 ml/min 06/23/22 13:03 BUN/Creatinine Ratio 51.9 (10-20) H 06/23/22 13:03 Glucose 314 mg/dl (70-99(Fasting)) H* 06/23/22 13:03 Calcium 8.0 mg/dl (8.6-10.3) L 06/23/22 13:03 Troponin I High Sens 298.7 pg/ml (0-14) H* 06/23/22 13:03 B-Natriuretic Peptide 1235 pg/ml (0-100) H 06/23/22 13:03 Lipase 76 U/L (11-82) 06/23/22 13:03 SARS-CoV-2, RNA, NAAT NEGATIVE (NEGATIVE) 06/23/22 13:01 Impressions Chest X-Ray 06/23/22 12:53 XR chest 1V portable CLINICAL HISTORY: Chest pain, nonspecific COMPARISON STUDY: Chest CT May 08, 2022. Chest radiograph May 27, 2022. FINDINGS: There is no pneumothorax. Small bilateral pleural effusions are present. Lungs are diminished. This is unchanged. There has been interval enlargement of extensive bilateral airspace opacities with interstitial thickening. Cardiomediastinal silhouette is grossly stable. There are cholecystectomy clips. Gastrostomy is incidentally noted. IMPRESSION: 1. Interval development of extensive bilateral airspace opacities and interstitial thickening. The findings could reflect pulmonary edema or multifocal pneumonia superimposed upon interstitial lung disease. 2. Small bilateral pleural effusions. ACT 112: Negative or not required by law. Electronically signed by: Nadir Fleming M.D. 06/23/2022 1:33 PM Code Status & VTE Plan VTE Prophylaxis Plan VTE Prophylaxis will be ordered: Yes
--- NOTE | 2022-06-23 16:22 | Critical Care Consultation ---
Date of Consultation June 23, 2022 Assessment & Plan (1) Acute hypoxemic respiratory failure: (2) Flash pulmonary edema: (3) Multifocal pneumonia: (4) Weakness generalized: (5) Cachexia: (6) Anemia: (7) Acute hypercapnic respiratory failure: (8) Hyponatremia: Plan Impression: 72-year-old female with dermatomyositis interstitial lung disease chronic aspiration status post PEG tube placement admitted now with diffuse pulmonary infiltrates, hypoxemic and hypercarbic respiratory failure in setting of anemia. She has failed noninvasive positive pressure ventilation but is quite adamant that she does not want to pursue aggressive interventions at this point in time. Recommendations: 1. I had a sam and honest conversation with the patient and her sister at bedside. We also were able to get her daughter on the phone. Suzy is clear that she does not want to pursue intubation or mechanical ventilation. I advised her that she has failed noninvasive positive pressure ventilation and her oxygen saturations are still unacceptable despite max settings of BiPAP. In addition she has hypercarbic respiratory failure which is likely contributing as well. I cannot determine the etiology of her respiratory failure. The diffuse infiltrates could be related to hydrostatic pulmonary edema, pulmonary hemorrhage, or multifocal aspiration. Idiopathic ARDS would have a similar pattern. Suzy is clear that she wants the mask off. When I advised her that discontinuation of this would likely result in her she expressed understanding and is in agreement. She is acceptable to continue the mask until her daughter arrives but likely then wants to be transition to comfort care measures. I advised her that her oxygen saturations are currently in the low 80% and I cannot guarantee that she will make it but seems reasonable to pursue a trial to see if we can get family present. We will continue antibiotics for now. If the patient changes her mind and elects to pursue additional aggressive interventions, would recommend intubation, bronchoscopy with BAL although I advised the patient and her family that given her underlying interstitial lung disease and significant decline in quality of life, I am not entirely convinced that we would be able to be successful in liberating her from the mechanical ventilator and we may be discussing tracheostomy which again she is adamantly opposed to. When I was able to discuss the case with the patient's sister outside of the room. She states that Suzy's condition has been declining significantly. Her quality of life is not acceptable. She states that the plan as outlined above is acceptable and in agreement with Suzy's previously stated wishes. We will see how she does however I suspect that we will transition to comfort measures shortly. Discussed with ICU nurse at bedside A total of 50 minutes in critical care time including end-of-life issues was spent in evaluation management of this patient. History of Present Illness Attending Physician: Ji Ward MD History of Present Illness Asked by hospitalist to assist in evaluation management of this patient with hypoxemic respiratory failure. The patient is known to me from prior admissions. History is obtained largely from review the electronic medical record as well as discussion with the hospitalist as the patient is on full face BiPAP and somewhat obtunded. This 72-year-old female carries a history of dermatomyositis with interstitial lung disease. She had been on mycophenolate for immunosuppression. She recently was found to have aspiration and underwent PEG tube placement. She has been in and out of the hospital and has continued to decline clinically. She was just dismissed from the hospital about 3 weeks ago where she was treated for hypovolemic shock anemia upper GI bleed. Palliative consultation was held at that time. The patient had clearly articulated a desire to not pursue invasive measures but apparently there was some discord with the family. The patient had been residing at [facility]. She was receiving IVIG infusion at [facility] when she developed the acute onset of shortness of breath. She received Lasix and was brought to the emergency room. She was hypertensive and placed on CPAP as well as given sublingual nitro spray. Antibiotics were also initiated. Her chest x-ray demonstrated diffuse pulmonary infiltrates and blood gas showed hypercarbic respiratory failure as well as hypoxemia. The patient has been uncomfortable with BiPAP and requesting that it be removed. The hospitalist felt that she would be best served by ICU admission. I assessed the patient immediately on arrival to the ICU. She is coughing up some blood-tinged phlegm. She has marginal oxygen saturations in the mid 80% range. She is on high-dose noninvasive positive pressure ventilation and appears to have failed trials of BiPAP. The patient adamantly expresses that she does not want to be on a ventilator. She wants the BiPAP off. She understands that she would potentially pass away without BiPAP. Her daughter is in route and about an hour away. Suzy is agreeable to continuing BiPAP until she arrives. Of note the patient appears significantly worse than when I evaluated her 6 weeks ago. She is cachectic wasted and according to family has a poor quality of life due to her feeding tube. Allergies Allergy/AdvReac Type Severity Reaction Status Date / Time No Known Allergies Allergy Verified 05/29/22 09:05 Home Medications Medication Instructions Recorded Confirmed Type pantoprazole 40 mg tablet,delayed 40 mg PO QAM #30 tabs 05/23/22 06/23/22 Rx release aspirin 81 mg tablet,delayed 81 mg feeding tube QAM #90 tabs 06/01/22 06/23/22 Rx release atorvastatin 40 mg tablet 40 mg feeding tube QAM #30 tabs 06/01/22 06/23/22 Rx doxepin 50 mg capsule 50 - 150 mg feeding tube HS PRN 06/01/22 06/23/22 Rx Sleep #30 caps furosemide 20 mg tablet (Lasix) 20 mg feeding tube 3XWK #30 tabs 06/01/22 06/23/22 Rx lansoprazole 30 mg delayed 30 mg PEG BID #60 tabs 06/01/22 06/23/22 Rx release,disintegrating tablet (Prevacid SoluTab) levetiracetam 100 mg/mL oral 500 mg (5 mL) PEG BID #200 mL 06/01/22 06/23/22 Rx solution (Keppra) metoprolol tartrate 25 mg tablet 12.5 mg feeding tube BID #30 tabs 06/01/22 06/23/22 Rx mycophenolate mofetil 200 mg/mL 1,000 mg (5 mL) PEG BID #160 mL 06/01/22 06/23/22 Rx oral suspension (CellCept) polyethylene glycol 3350 17 gram 17 g PEG DAILY PRN constipation 06/01/22 06/23/22 Rx oral powder packet (Miralax) #30 ea potassium chloride 20 mEq/15 mL 10 meq (7.5 mL) PO MoWeFr@0900 06/01/22 06/23/22 Rx oral liquid #450 mL sucralfate 100 mg/mL oral 1 g (10 mL) PEG QID #400 mL 06/01/22 06/23/22 Rx suspension clopidogrel 75 mg tablet 75 mg feeding tube DAILY 06/23/22 06/23/22 History gabapentin 100 mg capsule 100 mg feeding tube BID 06/23/22 06/23/22 History spironolactone 25 mg tablet 12.5 mg feeding tube DAILY 06/23/22 06/23/22 History (Aldactone) Patient History Medical History Acute dyspnea Acute metabolic encephalopathy Acute respiratory failure with hypoxia Advanced care planning/counseling discussion Anemia Aspiration pneumonia CHF (congestive heart failure) Dermatomyositis DVT prophylaxis Dysphagia Elevated troponin Encounter for pre-operative examination History of CVA (cerebrovascular accident) History of seizures Interstitial lung disease Palliative care by specialist Pneumonia Pulmonary hypertension Rhabdomyolysis Shortness of breath UTI (urinary tract infection) Weakness Weakness generalized Surgical History History of hysterectomy Family History Other Cancer Heart disease Social History Smoking Status: Unknown if ever smoked Tobacco Type: Cigarettes Second Hand Exposure: No; Do You Dip or Chew Tobacco: No; Hx Alcohol Use: No Hx Substance Use: No Preferred Language: Maltese Communication Ability: Impaired Communication Ability Comment: currently having some aphasia Rn Cvor Required: No Beliefs That Will Affect Care: None marital status: Single Current Living Situation: Alone Current Living Situation Comment: At home byself recently enrolled in home health Feels Safe at Home: Yes Assistive Devices: Walker Review of Systems Review of Systems: Unable to obtain secondary to the patient being on full face BiPAP Physical Exam Constitutional: + acute distress, + ill appearing, + cachectic and + frail appearing Eyes: PERRL, conjunctivae normal, anicteric sclerae ENMT: external ear and nose normal, oropharynx normal Neck: trachea midline, no thyromegaly Respiratory: no respiratory distress Auscultation: + diminished lung sounds and + crackles (Minimal crackles at the bases) Cardiovascular: Rate/Rhythm: regular rhythm and + tachycardic Heart Sounds: normal S1, normal S2 and + murmur Extremities: + edema (Trace edema bilaterally) Gastrointestinal (Abdomen): Inspection/Auscultation: normal bowel sounds; abdomen not distended Percussion/Palpation: + abdomen tender (Minimally tender epigastrium with the PEG tube in situ) and abdomen soft PEG tube site okay Lymphatic: no cervical or axillary lymphadenopathy Results & Data Results & Data Vital Signs (Past 12 Hours) Vital Signs Pulse Pulse Resp BP BP Pulse Ox O2 Del Method 06/23/22 15:20 115 H 29 H 90 06/23/22 15:16 116 H 30 H 88 L 06/23/22 15:16 114/91 06/23/22 15:10 113 H 29 H 91 06/23/22 15:01 137/74 06/23/22 15:01 115 H 32 H 90 06/23/22 15:00 115 H 30 H 91 06/23/22 14:50 106 H 29 H 90 06/23/22 14:31 118/90 06/23/22 14:20 115 H 27 H 88 L 06/23/22 14:15 135/94 06/23/22 14:15 115 H 28 H 93 06/23/22 14:10 117 H 29 H 91 06/23/22 14:00 108 H 28 H 80 L 06/23/22 14:00 126/97 06/23/22 13:50 120 H 29 H 89 L 06/23/22 13:45 119 H 32 H 94 06/23/22 13:45 147/101 H 06/23/22 13:40 107 H 27 H 80 L 06/23/22 13:30 120 H 26 H 06/23/22 13:30 121/95 06/23/22 13:20 118 H 29 H 88 L 06/23/22 13:16 114 H 27 H 90 06/23/22 13:16 111/80 06/23/22 13:10 116 H 31 H 97 06/23/22 13:08 115 H 30 H 96 06/23/22 13:08 134/103 H 06/23/22 13:05 118 H 33 H 97 06/23/22 13:05 131/105 H 06/23/22 13:01 117 H 32 H 97 06/23/22 12:40 BiPAP 06/23/22 12:40 116 H 29 H 158/100 H 92 BiPAP 06/23/22 13:24 115 H 34 H 121/95 90 BiPAP 06/23/22 13:06 116 H 22 97 06/23/22 13:04 118 H 06/23/22 13:06 118 H 33 H 98 BiPAP FiO2 06/23/22 15:20 100 06/23/22 15:16 100 04/28/23 15:16 06/23/22 15:10 100 06/23/22 15:01 06/23/22 15:01 100 06/23/22 15:00 100 06/23/22 14:50 100 06/23/22 14:31 06/23/22 14:20 100 06/23/22 14:15 06/23/22 14:15 100 06/23/22 14:10 100 06/23/22 14:00 100 06/23/22 14:00 06/23/22 13:50 100 06/23/22 13:45 100 06/23/22 13:45 06/23/22 13:40 100 06/23/22 13:30 100 06/23/22 13:30 06/23/22 13:20 100 06/23/22 13:16 100 06/23/22 13:16 06/23/22 13:10 100 06/23/22 13:08 100 06/23/22 13:08 06/23/22 13:05 100 06/23/22 13:05 06/23/22 13:01 100 06/23/22 12:40 100 06/23/22 12:40 100 06/23/22 13:24 100 06/23/22 13:06 100 06/23/22 13:04 06/23/22 13:06 100 Critical Care Results & Data Vital Signs (Past 12 Hours) Vital Signs Temp Pulse Pulse Resp BP BP Pulse Ox 06/23/22 16:01 36.4 C L 113 H 32 H 119/79 86 L 06/23/22 15:20 115 H 29 H 90 06/23/22 15:16 116 H 30 H 88 L 06/23/22 15:16 114/91 06/23/22 15:10 113 H 29 H 91 06/23/22 15:01 137/74 06/23/22 15:01 115 H 32 H 90 06/23/22 15:00 115 H 30 H 91 06/23/22 14:50 106 H 29 H 90 06/23/22 14:31 118/90 06/23/22 14:20 115 H 27 H 88 L 06/23/22 14:15 135/94 06/23/22 14:15 115 H 28 H 93 06/23/22 14:10 117 H 29 H 91 06/23/22 14:00 108 H 28 H 80 L 06/23/22 14:00 126/97 06/23/22 13:50 120 H 29 H 89 L 06/23/22 13:45 119 H 32 H 94 06/23/22 13:45 147/101 H 06/23/22 13:40 107 H 27 H 80 L 06/23/22 13:30 120 H 26 H 06/23/22 13:30 121/95 06/23/22 13:20 118 H 29 H 88 L 06/23/22 13:16 114 H 27 H 90 06/23/22 13:16 111/80 06/23/22 13:10 116 H 31 H 97 06/23/22 13:08 115 H 30 H 96 06/23/22 13:08 134/103 H 06/23/22 13:05 118 H 33 H 97 06/23/22 13:05 131/105 H 06/23/22 13:01 117 H 32 H 97 06/23/22 12:40 06/23/22 12:40 116 H 29 H 158/100 H 92 06/23/22 13:24 115 H 34 H 121/95 90 06/23/22 13:06 116 H 22 97 06/23/22 13:04 118 H 06/23/22 13:06 118 H 33 H 98 O2 Del Method FiO2 06/23/22 16:01 BiPAP 06/23/22 15:20 100 06/23/22 15:16 100 06/23/22 15:16 06/23/22 15:10 100 06/23/22 15:01 06/23/22 15:01 100 06/23/22 15:00 100 06/23/22 14:50 100 06/23/22 14:31 06/23/22 14:20 100 06/23/22 14:15 06/23/22 14:15 100 06/23/22 14:10 100 06/23/22 14:00 100 06/23/22 14:00 06/23/22 13:50 100 06/23/22 13:45 100 06/23/22 13:45 06/23/22 13:40 100 06/23/22 13:30 100 06/23/22 13:30 06/23/22 13:20 100 06/23/22 13:16 100 06/23/22 13:16 06/23/22 13:10 100 06/23/22 13:08 100 06/23/22 13:08 06/23/22 13:05 100 06/23/22 13:05 06/23/22 13:01 100 06/23/22 12:40 BiPAP 100 06/23/22 12:40 BiPAP 100 06/23/22 13:24 BiPAP 100 06/23/22 13:06 100 06/23/22 13:04 06/23/22 13:06 BiPAP 100 Lab & Micro Results (Past 24 Hours) RBC 3.34 M/uL (4.20-5.40) L 06/23/22 WBC 22.59 K/ul (4.8-10.8) H 06/23/22 Hgb 9.5 g/dl (12.0-16.0) L 06/23/22 Hct 31.9 % (37.0-47.0) L 06/23/22 MCV 95.5 fL (80.0-100.0) 06/23/22 MCH 28.4 pg (25.0-34.0) 06/23/22 MCHC 29.8 g/dL (32.0-36.0) L 06/23/22 RDW Standard Deviation 63.7 fL (36.4-46.3) H 06/23/22 RDW Coefficient of Variation 18.9 % (11.5-14.5) H 06/23/22 Plt Count 566 K/uL (130-400) H 06/23/22 MPV 11.8 fL (9.4-12.4) 06/23/22 Nucleated Red Blood Cells % (auto) 0.1 % 06/23 Nucleated RBC Absolute Count (auto) 0.03 K/uL (0-0.12) 05/28 10/18 Neutrophils (%) (Auto) 76.8 % 06/23/22 Lymphocytes (%) (Auto) 19.1 % 06/23/22 Monocytes # (Auto) 0.61 K/uL (0.11-0.59) H 06/23/22 Eosinophils # (Auto) 0.04 K/uL (0-0.50) 06/23/22 Immature Granulocyte % (Auto) 1.1 % 06/23/22 Neutrophils # (Auto) 17.35 K/uL (1.40-6.50) H 06/23/22 Lymphocytes # (Auto) 4.32 K/uL (1.2-3.4) H 06/23/22 Monocytes # (Auto) 0.61 K/uL (0.11-0.59) H 06/23/22 Eosinophils # (Auto) 0.04 K/uL (0-0.50) 06/23/22 Basophils # (Auto) 0.03 K/uL (0-0.2) 06/23/22 Immature Granulocyte # (Auto) 0.24 K/uL (0.01-0.20) H 06/23 Na 131 mmol/L (136-145) L 06/23/22 K 4.1 mmol/L (3.5-5.1) 06/23/22 Cl 99 mmol/L (98-107) 06/23/22 CO2 19 mmol/L (21-32) L 06/23/22 Anion Gap 13 (3-11) H 06/23/22 BUN 42 mg/dl (6-23) H 06/23/22 Creatinine 0.81 mg/dl (0.6-1.2) 06/23/22 Estimated GFR ( Amer) 84.7 ml/min 06/23/22 Estimated GFR (Non-Af Amer) 73.1 ml/min 06/23/22 BUN/Creatinine Ratio 51.9 (10-20) H 06/23/22 Glu 314 mg/dl (70-99(Fasting)) H* 06/23/22 Ca 8.0 mg/dl (8.6-10.3) L 06/23/22 Calcium Level 8.0 mg/dl (8.6-10.3) L 06/23/22 13:03 Prothromb Time International Ratio 1.1 (0.9-1.1) 06/23/22 13:0 3 Arterial Blood pH 7.14 (7.35-7.45) L* 06/23/22 13:03 Arterial Blood Partial Pressure CO2 57 mmHg (35-46) H 06/23/22 13:03 Arterial Blood Partial Pressure O2 84 mmHg (80-95) 06/23/22 13: 03 Arterial Blood HCO3 19 mmol/L (19-24) 06/23/22 13:03 Arterial Blood Base Excess -10.1 mEq/L (-9-1.8) L 06/23/22 13:0 3 Arterial Blood Oxygen Saturation 95.3 % (90-95) H 06/23/22 13:0 3 Blood Gas Oxygen Given 100% 06/23/22 13:03 Jabari Test POS (Pos) 06/23/22 13:03 Diagnostic Findings (Past 24 Hours) Chest X-Ray 06/23/22 12:53 XR chest 1V portable CLINICAL HISTORY: Chest pain, nonspecific COMPARISON STUDY: Chest CT May 08, 2022. Chest radiograph May 27, 2022. FINDINGS: There is no pneumothorax. Small bilateral pleural effusions are present. Lungs are diminished. This is unchanged. There has been interval enlargement of extensive bilateral airspace opacities with interstitial thickening. Cardiomediastinal silhouette is grossly stable. There are cholecystectomy clips. Gastrostomy is incidentally noted. IMPRESSION: 1. Interval development of extensive bilateral airspace opacities and interstitial thickening. The findings could reflect pulmonary edema or multifocal pneumonia superimposed upon interstitial lung disease. 2. Small bilateral pleural effusions. ACT 112: Negative or not required by law. Electronically signed by: Nadir Fleming M.D. 06/23/2022 1:33 PM I & O Totals 24 Hours 06/22/22 06/23/22 06/24/22 06:59 06:59 06:59 Output Total 300 / 300 Balance -300 / -300 Cumulative 06/23/22 12:40 thru 06/23/22 16:01 Output Total 300 Balance -300 RT Ventilator Mngmt (Last Documented) Ventilator Ordered Settings Respiratory Rate 32 06/23/22 16:01 Fraction of Inspired Oxygen 100 06/23/22 15:20 Ventilator - PT Measurements Respiratory Rate 32 Coding Level of Care Code 27913 CRITICAL CARE 1ST 30-74M Diagnoses Acute hypoxemic respiratory failure J96.01 Flash pulmonary edema J81.0 Multifocal pneumonia J18.9 Weakness generalized R53.1 Cachexia R64 Anemia D64.9 Anemia type: unspecified type Acute hypercapnic respiratory failure J96.02 Hyponatremia E87.1 (6) Anemia Anemia type: unspecified type Qualified Code(s): D64.9 - Anemia, unspecified
[2022-06-23] MEDS ORDERED: ICU Protocol for HYPERglycemia SCH (16:30)
[2022-06-23] MEDS ORDERED: LORazepam 0.5 MG TAB SL PRN (16:58)
[2022-06-23] MEDS ORDERED: ONDANSETRON INJ 2 MG/ML 2 ML VIAL IV PRN (16:58)
[2022-06-23] MEDS ORDERED: LORazepam 2 MG/1 ML VIAL IV PRN (16:58)
[2022-06-23] MEDS ORDERED: SUCRALFATE 1 GM/10 ML UDC PEG SCH (17:00)
[2022-06-23] MEDS ORDERED: MoRPHine BOLUS from BAG IV PRN ×2 (17:08)
[2022-06-23] MEDS ORDERED: MoRPHine SULF/NSS 250 MG/250 ML BTL IV SCH (17:15)
--- NOTE | 2022-06-23 18:44 | Pharmacy Report ---
Pharmacy PK ABX Note - Date of Service June 23, 2022 - Assessment and Plan Assessment 72 year old F started on vancomycin for possible pneumonia. PMHx significant for dermatomyositis with interstitial lung disease, on mycophenolate for immunosupression. Has hx of multiple hospital admissions. She was last discharged from hospital 3 weeks ago and treated for hypovolemic shock/GI bleed. Per notes had been receiving IVIG outpatient and developed sudden shortness of breath therefore transferred to hospital Day # 1 of antimicrobial therapy. Plan Vancomycin * Loading dose: 1250 mg x 1 * Maintenance dose: 750 mg iv q 12 hr * Regimen is predicted to achieve target AUC/JAY of 400-600 mg/L.hr * Plan to collect random level if plan is to continue >48 hours Pharmacy will continue to follow and will adjust dose/frequency as necessary. Thank you. Pharmacy has transitioned to AUC monitoring for vancomycin. AUC/JAY is the preferred PK/PD target and is associated with decreased risk of nephrotoxicity compared to traditional trough targets.
[2022-06-23] MEDS ORDERED: VANCOMYCIN HCL 750 MG in SODIUM CHLORIDE 0.9% 250 ML IV SCH (21:00)
[2022-06-23] MEDS ORDERED: LANSOPRAZOLE 30 MG SOLTAB PEG SCH (21:00)
[2022-06-23] MEDS ORDERED: METOPROLOL TARTRATE 25 MG TAB PO SCH (21:00)
[2022-06-24] MEDS ORDERED: ASPIRIN 81 MG ECTAB PO SCH (09:00)
[2022-06-24] MEDS ORDERED: SPIRONOLACTONE 12.5 MG TAB PEG SCH (09:00)
[2022-06-24] MEDS ORDERED: ATORVASTATIN 40 MG TAB PEG SCH (09:00)
[2022-06-24] MEDS ORDERED: CLOPIDOGREL BISULFATE 75 MG TAB PEG SCH (09:00)
[2022-06-24] MEDS ORDERED: GABAPENTIN 100 MG CAP PO SCH (09:00)
[2022-06-24] MEDS ORDERED: PANTOprazole 40 MG TAB PO SCH (09:00)
[2022-06-24] MEDS ORDERED: ASPIRIN 81 MG CHEW PO SCH (09:00)
--- NOTE | 2022-07-09 20:35 | Discharge Summary ---
Date of Service June 23, 2022 Admission HPI Per Admitting Provider 72yo F with a PMH of dysphagia and esophagitis status post PEG placement on 05/18/2022, pulmonary hypertension, CHF, dermatomyositis, ILD, Raynaud's disease, history of CVA, history of seizures, history of tobacco use, polyneuropathy presented from [facility] for worsening shortness of breath. History obtained from pt, ER provider and daughter over the phone. This morning Pt was at the [facility] for IV IG infusion when she developed SOB. Daughter said that she had IV IG yesterday as well. Daughter said on Sunday when she saw her, she had edema in her lower extremities. Daughter said that she did not c omplaint of any SOB on Sunday or yesterday. Daughter said that pt was spitting phlegm out on Sunday. Pt is on continuous tube feeding and she takes lasix 20mg 3 times a week. Pt said that this morning suddenly she could not breath. She was given lasix 40mg IV given at [facility] prior to arrival via [facility]. EMS was called she was placed on CPAP and given 4 sprays of nitroglycerin. In the ER ABG showed pH 7.14/ pCO2 57, pHCO3 19 , Troponin 298 and BNP 1235. CXR showed Interval development of extensive bilateral airspace opacities and interstitial thickening. She was placed on bipap. She does not want to keep the BIPAP on. She said that she cannot breath with it. She made it clear that she wants to be DNI/DNR. Denies any chest pain, palpitation, dizziness and fever. Admission Exam Per Admitting Provider General- +acute respiratory distress Head- atraumatic Eyes- PERRL, EOMI, ENT- o+bipap Neck- supple, no JVD Lungs-+ crackles, +tachypneic Heart- r+murmur Abdomen- +peg tube, nontender Extremities- +pitting edema Neuro- alert, oriented x 3; PERRL, EOMI; no facial palsy; Principal Diagnosis Acute hypercapnic respiratory failure: Acute hypoxemic respiratory failure: Flash pulmonary edema: Elevated Troponin Elevated WBC Hyponatremia Dermatomyositis: H/O seizures: H/O CVA: Discharge Exam Patient ceased to breath at 1838 hours. No heart tones Discharge Data Allergies Allergy/AdvReac Type Severity Reaction Status Date / Time No Known Allergies Allergy Verified 05/29/22 09:05 Consultations 06/23/22 13:38 ED Decision to Admit Stat 06/23/22 16:00 Consult Skiagrapher Routine Consult Palliative Care Routine Ordered Studies Laboratory Results WBC 22.59 K/ul (4.8-10.8) H 06/23/22 13:03 RBC 3.34 M/uL (4.20-5.40) L 06/23/22 13:03 Hgb 9.5 g/dl (12.0-16.0) L 06/23/22 13:03 Hct 31.9 % (37.0-47.0) L 06/23/22 13:03 MCV 95.5 fL (80.0-100.0) 06/23/22 13:03 MCH 28.4 pg (25.0-34.0) 06/23/22 13:03 MCHC 29.8 g/dL (32.0-36.0) L 06/23/22 13:03 RDW Std Deviation 63.7 fL (36.4-46.3) H 06/23/22 13:03 RDW Coeff of Myra 18.9 % (11.5-14.5) H 06/23/22 13:03 Plt Count 566 K/uL (130-400) H D 06/23/22 13:03 MPV 11.8 fL (9.4-12.4) 06/23/22 13:03 Immature Gran % (Auto) 1.1 % 06/23/22 13:03 Neut % (Auto) 76.8 % 06/23/22 13:03 Lymph % (Auto) 19.1 % 06/23/22 13:03 Crockett % (Auto) 2.7 % 06/23/22 13:03 Eos % (Auto) 0.2 % 06/23/22 13:03 Baso % (Auto) 0.1 % 06/23/22 13:03 Neut # (Auto) 17.35 K/uL (1.40-6.50) H 06/23/22 13:03 Lymph # (Auto) 4.32 K/uL (1.2-3.4) H 06/23/22 13:03 Crockett # (Auto) 0.61 K/uL (0.11-0.59) H 06/23/22 13:03 Eos # (Auto) 0.04 K/uL (0-0.50) 06/23/22 13:03 Baso # (Auto) 0.03 K/uL (0-0.2) 06/23/22 13:03 Immature Gran # (Auto) 0.24 K/uL (0.01-0.20) H 06/23/22 13:03 Absolute Nucleated RBC 0.03 K/uL (0-0.12) 06/23/22 13:03 Nucleated RBC % (auto) 0.1 % 06/23/22 13:03 PT 12.3 Seconds (9.0-12.0) H 06/23/22 13:03 INR 1.1 (0.9-1.1) 06/23/22 13:03 APTT 27.1 Seconds (21.0-31.0) 06/23/22 13:03 PTT Ratio 1.0 06/23/22 13:03 ABG pH 7.14 (7.35-7.45) L* 06/23/22 13:03 ABG pCO2 57 mmHg (35-46) H 06/23/22 13:03 ABG pO2 84 mmHg (80-95) 06/23/22 13:03 ABG HCO3 19 mmol/L (19-24) 06/23/22 13:03 ABG O2 Saturation 95.3 % (90-95) H 06/23/22 13:03 ABG Base Excess -10.1 mEq/L (-9-1.8) L 06/23/22 13:03 Jabari Test POS (Pos) 06/23/22 13:03 Oxygen Given 100% 06/23/22 13:03 Sodium 131 mmol/L (136-145) L 06/23/22 13:03 Potassium 4.1 mmol/L (3.5-5.1) 06/23/22 13:03 Chloride 99 mmol/L (98-107) 06/23/22 13:03 Carbon Dioxide 19 mmol/L (21-32) L 06/23/22 13:03 Anion Gap 13 (3-11) H 06/23/22 13:03 BUN 42 mg/dl (6-23) H 06/23/22 13:03 Creatinine 0.81 mg/dl (0.6-1.2) 06/23/22 13:03 Est Cr Clr Drug Dosing 59.3 ml/min 06/23/22 13:03 Est GFR ( Amer) 84.7 ml/min 06/23/22 13:03 Est GFR (Non-Af Amer) 73.1 ml/min 06/23/22 13:03 BUN/Creatinine Ratio 51.9 (10-20) H 06/23/22 13:03 Glucose 314 mg/dl (70-99(Fasting)) H* 06/23/22 13:03 Calcium 8.0 mg/dl (8.6-10.3) L 06/23/22 13:03 Troponin I High Sens 298.7 pg/ml (0-14) H* 06/23/22 13:03 B-Natriuretic Peptide 1235 pg/ml (0-100) H 06/23/22 13:03 Lipase 76 U/L (11-82) 06/23/22 13:03 SARS-CoV-2, RNA, NAAT NEGATIVE (NEGATIVE) 06/23/22 13:01 Impressions Chest X-Ray 06/23/22 12:53 XR chest 1V portable CLINICAL HISTORY: Chest pain, nonspecific COMPARISON STUDY: Chest CT May 08, 2022. Chest radiograph May 27, 2022. FINDINGS: There is no pneumothorax. Small bilateral pleural effusions are present. Lungs are diminished. This is unchanged. There has been interval enlargement of extensive bilateral airspace opacities with interstitial thickening. Cardiomediastinal silhouette is grossly stable. There are cholecystectomy clips. Gastrostomy is incidentally noted. IMPRESSION: 1. Interval development of extensive bilateral airspace opacities and interstitial thickening. The findings could reflect pulmonary edema or multifo roxanne pneumonia superimposed upon interstitial lung disease. 2. Small bilateral pleural effusions. ACT 112: Negative or not required by law. Electronically signed by: Nadir Fleming M.D. 06/23/2022 1:33 PM Hospital Course (1) Acute hypercapnic respiratory failure: (2) Acute hypoxemic respiratory failure: (3) Flash pulmonary edema: Elevated Troponin Elevated WBC Hyponatremia Dermatomyositis: H/O CVA: 72yo F with a PMH of dysphagia and esophagitis status post PEG placement on 05/18/2022, pulmonary hypertension, CHF, dermatomyositis, ILD, Raynaud's disease, history of CVA, history of seizures, history of tobacco use, polyneuropathy presented from [facility] for worsening shortness of breath. CXR showed interval development of extensive bilateral airspace opacities and interstitial thickening. Acute hypoxia respiratory failure due to flash pulmonary edema Pt does not want to keep bipap on Pt was made comfort care after tack puller machine discussed with patient and family Pt cease to breath at 16:38 certificate completed Total Time Total Time Spent Total Time Spent (In Minutes): 15 minutes Discharge Plan Discharge Items Patient Disposition: Other Date/Time: 06/23/22 18:38
== END 2022-06-23 18:38 | disposition expired | DRG 291 ==
LOC: ED 12:49 → 1E 14:49